=== PATIENT | female | born 1945 | race Caucasian/White ===

== ENCOUNTER 2017-08-05 16:39 | Observation (INO) ==
[2017-08-05] MEDS ORDERED: Ipratropium/Albuterol Neb 3 ML IH ONE ×2 (18:01→20:45)
--- NOTE | 2017-08-05 18:11 | Emergency Department Note ---
Disposition Clinical Impression: Acute respiratory failure with hypoxia, Liver cirrhosis secondary to nonalcoholic steatohepatitis (HENRIQUEZ), Thrombocytopenia Asthma with exacerbation Qualifiers: Asthma severity: unspecified severity Asthma persistence: unspecified Qualified Code(s): J45.901 - Unspecified asthma with (acute) exacerbation Ascites Qualifiers: Ascites type: other type Qualified Code(s): R18.8 - Other ascites Disposition: Admitted As Inpatient Condition: Good Time of Disposition: 20:45 SOB HPI - General Chief Complaint: ED Shortness of Breath/Dyspnea Stated Complaint: ALIE, congestion Time Seen by Provider: 08/05/17 17:48 Source: patient Limitations: no limitations Nursing Notes Reviewed: Yes Vital Signs Reviewed: Yes - History of Present Illness Mrs. Shaffer is a 72-year-old woman with a history of asthma, cirrhosis of the liver, hyperlipidemia who presented to the ED with shortness of breath and had a duration of approximately 3 months. She says the shortness of breath has been developing over the period of sleep on and has not seemed to get any better. In addition she has also developed a hoarseness to her voice which has progressed to a constant whisper. She says that throughout this time she has not had any fevers or chills. She has not had any indication of infection. She says that she was seen at the [place] ED and nothing was done at that time. She has not used an inhaler for breathing treatment in several years. She said nothing seems to help this shortness of breath and hoarseness, and nothing seems to make it significantly worse other than exertion. She believes that approximately one year ago she came into the hospital and had a thoracentesis at which time significant amount of fluid was released from her lungs. She denies any chest pain, edema. - Related Data Home Medications Medication Instructions Recorded Confirmed Furosemide [Lasix] 40 mg PO DAILY 06/15/15 06/15/15 Previous Rx's Medication Instructions Recorded Acetaminophen [Tylenol] 650 mg PO Q6HR PRN #0 tablet 06/18/15 Ascorbic Acid [Vitamin C] 500 mg PO BID tablet 06/18/15 Aspirin Enteric Coated [Aspirin EC] 81 mg PO DAILY #30 tablet. 06/18/15 Azithromycin [Zithromax] 250 mg PO DAILY #6 tablet 06/18/15 Benzonatate [Tessalon] 100 mg PO QID #120 capsule 06/18/15 Cholecalciferol (D-3) 5,000 unit PO BID 30 Days tablet 06/18/15 Docusate [Colace] 100 mg PO BID PRN #0 capsule 06/18/15 Glimepiride [Amaryl] 4 mg PO DAILY tablet 06/18/15 HYDROcodone BIT/Homatropine LQ 5 mg PO Q4HR PRN #120 ml 06/18/15 [Hycodan Syrup] Insulin DETEMIR [Levemir] 26 unit SQ BID 30 Days [id number] 06/18/15 Insulin LISPRO [HumaLOG] 8 units SQ TIDWM 30 Days vial 06/18/15 Ipratropium/Albuterol Neb [Duoneb] 3 ml IH [id number] #120 inhsol 06/18/15 Lactobacillus [Culturelle] 2 each PO DAILY 30 Days cap.sprink 06/18/15 Lisinopril [Zestril] 10 mg PO DAILY #0 tablet 06/18/15 Metformin [Glucophage] 1,000 mg PO BIDWM tablet 06/18/15 Spironolactone [Aldactone] 100 mg PO BID #60 tablet 06/18/15 Allergies Allergy/AdvReac Type Severity Reaction Status Date / Time No Known Drug Allergies Allergy See Verified 08/05/17 17:29 Comments Constitutional: Denies: fever, chills, weakness Eyes: Denies: vision change ENT ED: Reports: throat pain, other (hoarseness ) Cardiovascular: Reports: dyspnea on exertion. Denies: chest pain, palpitations , orthopnea, paroxysmal nocturnal dyspnea Respiratory: Denies: wheezes, hemoptysis, sputum production Gastrointestinal: Denies: nausea, vomiting, diarrhea Genitourinary: Denies: urgency, dysuria, frequency Musculoskeletal: Reports: neck pain. Denies: back pain Integumentary: Denies: rash, abrasion Neurological: Denies: headache Psychiatric: Denies: anxiety, depression Endocrine: Denies: heat or cold intolerance Hematological/Lymphatic: Denies: easy bleeding Allergic/Immunologic: Denies: facial swelling Past Medical History - Past Medical History Medical history: Reports: asthma, diabetes, hypertension, other Surgical history: Reports: hysterectomy, orthopedic, other Psychiatric history: Reports: no psych history [employer] history: Reports: non-contributory - Social History Smoking Status: Never smoker Smokeless Tobacco Status: No Alcohol use: Reports: none Drug use: Reports: none Physical Exam Gen.: Vitals noted. AAOx3 Ill appearing woman in moderate distress, speaks in broken whisper HEENT: PERRL/EOMI, oropharynx clear, Normocephalic, atraumatic Neck: Supple. No adenopathy. Cardiac: RRR but tachycardic, no murmur, +S1/S2 Pulmonary: b/l diffuse wheezes inspiratory and expiratory Abdomen: soft, nontender, BS noted, no guarding Back: Nontender throughout. MSK: ROM intact, no joint swelling noted Extremities: no BLE edema, nontender calf, no cyanosis or clubbing Neuro: A&Ox3, moves all extremities, no focal deficits Psych: Appropriate mood and behavior - General Limitations: no limitations General appearance: alert Course Vital Signs Temperature 98.9 F 08/05/17 17:29 Pulse Rate 95 08/05/17 17:29 Respiratory Rate 28 08/05/17 17:29 Blood Pressure 173/67 08/05/17 17:29 O2 Sat by Pulse Oximetry 94 08/05/17 17:29 Temperature 97.9 F 08/05/17 21:58 Pulse Rate 108 08/05/17 21:58 Respiratory Rate 22 08/05/17 21:58 Blood Pressure 142/57 08/05/17 21:58 O2 Sat by Pulse Oximetry 97 08/05/17 22:43 Oxygen Delivery Oxygen Delivery Nasal Cannula Shortness of Breath/Dyspnea - MDM Narrative Medical decision making narrative: I reviewed this patient's imaging and labs. On exam the patient is highly exasperated, moderate distress and unable to speak in full sentences without stopping for air. She was initially diffusely wheezy on end expiration, however after breathing treatment she did develop wheezing both inspiratory and expiratory. I think it is likely that this patient developed its pre-wheezes due to opening of airway with an increased airflow. The patient has been hypoxic in her time here when left on room air. He also develops acute dyspnea and tachycardia on minimal exertion. Chest x-ray and CT did not demonstrate any acute abnormalities, however did show severe cirrhosis with sequelae consistent with it. Additionally, the patient did have labs which demonstrated a leukopenia, thrombocytopenia. Additionally on initial evaluation the patient' s blood glucose was 600, ABG demonstrated acidosis. I gave the patient 10U insulin, IV saline, and then spoke with the hospitalist who recommended IV insulin drip. The patient's respiratory status did improve with 3 breathing treatments, however upon using the restroom her respiratory status declined again. She received one more breathing treatment while in the ED. Hospitalist agreed to accept this patient for workup of hypoxic respiratory failure along with acidosis. - Medical Records Medical records reviewed: Yes I reviewed the patient's medical records. - Lab Data Lab results reviewed: Yes I reviewed the patient's lab results. Result diagrams: 08/05/17 18:12 08/05/17 22:26 Lab Results 08/05/17 08/05/17 08/05/17 Range/Units 18:12 18:12 18:12 WBC 2.4 L (4.3-11.1) K/mcL RBC 3.20 L (3.82-4.97) M/mcL Hgb 10.1 L (11.5-15.4) g/dL Hct 30.6 L (35.3-44.9) % MCV 95.6 (83.0-100.0) fL MCH 31.6 (28.0-33.3) pg MCHC 33.0 (31.6-35.5) g/dL RDW 17.2 H (11.5-14.5) % Plt Count 26 L* (140-400) K/mcL MPV 11.5 (9.4-12.4) fL Immature Gran % 0.8 (0-4) % Seg Neutrophils % 84.5 % Lymphocytes % 8.8 % Monocytes % 5.9 % Eosinophils % 0.0 % Basophils % 0.0 % Neutrophils # 2.0 (1.6-8.9) K/mcL Lymphocytes # 0.2 L (0.6-4.6) K/mcL Monocytes # 0.1 (0.0-1.3) K/mcL Eosinophils # 0.0 (0.0-0.6) K/mcL Basophils # 0.0 (0.0-0.2) K/mcL Immature Plt Fraction 3.7 (1.1-6.1) % PT (9.4-12.1) Seconds INR ABG pH (7.32-7.45) pH Units ABG pCO2 (35-45) mmHg ABG pO2 (85-104) mmHg ABG HCO3 (21-27) mEq/L ABG Total CO2 (20-26) mEq/L ABG O2 Saturation (95-98) % ABG Base Excess (-2 to 3) mEq/L Sodium 132 L (136-145) mEq/L Potassium 5.0 (3.5-5.1) mEq/L Chloride 106 (98-107) mEq/L Carbon Dioxide 19 L (23-29) mEq/L BUN 28 H (8-23) mg/dL Creatinine 1.29 H (0.60-1.20) mg/dL Est GFR ( Amer) 50 L (> 60) Est GFR (Non-Af Amer) 41 L (> 60) BUN/Creatinine Ratio 22 (6-26) Glucose 600 H* (70-105) mg/dL Calculated Osmolality 307 H (280-300) Lactic Acid (0.5-2.2) mmol/L Calcium 8.4 L (8.6-10.3) mg/dL Total Bilirubin 1.0 (0.3-1.0) mg/dL Direct Bilirubin (0.0-0.2) mg/dL Indirect Bilirubin (0.0-1.2) mg/dL AST 26 (13-39) Units/L ALT 18 (7-52) Units/L Alkaline Phosphatase 67 (34-104) Units/L Troponin I < 0.03 (< 0.04) ng/mL B-Natriuretic Peptide (Less than 100) pg/mL Serum Total Protein 6.6 (6.4-8.9) g/dL Albumin 3.3 L (3.5-5.7) g/dL Globulin 3.3 (2.4-3.5) g/dL Albumin/Globulin Ratio 1.0 L (1.1-2.2) Beta-Hydroxybutyric Acd (0.02-0.27) mmol/L TSH (0.340-5.600) mcIU/mL Ur Specimen Adequacy Urine Color (Yellow) Urine Clarity (Clear) Urine pH (5.0-8.0) pH Units Ur Specific [place] (1.010-1.025) Urine Protein (Neg-Trace) mg/dL Urine Glucose (UA) (Normal) mg/dL Urine Ketones (Negative) mg/dL Urine Blood (Negative) Urine Nitrite (Negative) Urine Bilirubin (Negative) Urine Urobilinogen (Normal) mg/dL Ur Leukocyte Esterase (Negative) Urine Microscopic RBC (0-3) per hpf Urine Microscopic WBC (0-3) per hpf Ur Squamous Epith Cells (None-Few) per lpf Urine Bacteria (None-Few) per hpf Hyaline Casts (None-Few) per lpf Ur Culture Indicated? (NO) 08/05/17 08/05/17 08/05/17 Range/Units 18:12 18:12 18:12 WBC (4.3-11.1) K/mcL RBC (3.82-4.97) M/mcL Hgb (11.5-15.4) g/dL Hct (35.3-44.9) % MCV (83.0-100.0) fL MCH (28.0-33.3) pg MCHC (31.6-35.5) g/dL RDW (11.5-14.5) % Plt Count (140-400) K/mcL MPV (9.4-12.4) fL Immature Gran % (0-4) % Seg Neutrophils % % Lymphocytes % % Monocytes % % Eosinophils % % Basophils % % Neutrophils # (1.6-8.9) K/mcL Lymphocytes # (0.6-4.6) K/mcL Monocytes # (0.0-1.3) K/mcL Eosinophils # (0.0-0.6) K/mcL Basophils # (0.0-0.2) K/mcL Immature Plt Fraction (1.1-6.1) % PT (9.4-12.1) Seconds INR ABG pH (7.32-7.45) pH Units ABG pCO2 (35-45) mmHg ABG pO2 (85-104) mmHg ABG HCO3 (21-27) mEq/L ABG Total CO2 (20-26) mEq/L ABG O2 Saturation (95-98) % ABG Base Excess (-2 to 3) mEq/L Sodium (136-145) mEq/L Potassium (3.5-5.1) mEq/L Chloride (98-107) mEq/L Carbon Dioxide (23-29) mEq/L BUN (8-23) mg/dL Creatinine (0.60-1.20) mg/dL Est GFR ( Amer) (> 60) Est GFR (Non-Af Amer) (> 60) BUN/Creatinine Ratio (6-26) Glucose (70-105) mg/dL Calculated Osmolality (280-300) Lactic Acid (0.5-2.2) mmol/L Calcium (8.6-10.3) mg/dL Total Bilirubin 1.0 (0.3-1.0) mg/dL Direct Bilirubin 0.3 H (0.0-0.2) mg/dL Indirect Bilirubin 0.7 (0.0-1.2) mg/dL AST 26 (13-39) Units/L ALT 19 (7-52) Units/L Alkaline Phosphatase 66 (34-104) Units/L Troponin I (< 0.04) ng/mL B-Natriuretic Peptide 155 H (Less than 100) pg/mL Serum Total Protein 6.6 (6.4-8.9) g/dL Albumin 3.3 L (3.5-5.7) g/dL Globulin 3.3 (2.4-3.5) g/dL Albumin/Globulin Ratio 1.0 L (1.1-2.2) Beta-Hydroxybutyric Acd (0.02-0.27) mmol/L TSH 0.969 (0.340-5.600) mcIU/mL Ur Specimen Adequacy Urine Color (Yellow) Urine Clarity (Clear) Urine pH (5.0-8.0) pH Units Ur Specific [place] (1.010-1.025) Urine Protein (Neg-Trace) mg/dL Urine Glucose (UA) (Normal) mg/dL Urine Ketones (Negative) mg/dL Urine Blood (Negative) Urine Nitrite (Negative) Urine Bilirubin (Negative) Urine Urobilinogen (Normal) mg/dL Ur Leukocyte Esterase (Negative) Urine Microscopic RBC (0-3) per hpf Urine Microscopic WBC (0-3) per hpf Ur Squamous Epith Cells (None-Few) per lpf Urine Bacteria (None-Few) per hpf Hyaline Casts (None-Few) per lpf Ur Culture Indicated? (NO) 08/05/17 08/05/17 08/05/17 Range/Units 18:12 19:09 19:09 WBC (4.3-11.1) K/mcL RBC (3.82-4.97) M/mcL Hgb (11.5-15.4) g/dL Hct (35.3-44.9) % MCV (83.0-100.0) fL MCH (28.0-33.3) pg MCHC (31.6-35.5) g/dL RDW (11.5-14.5) % Plt Count (140-400) K/mcL MPV (9.4-12.4) fL Immature Gran % (0-4) % Seg Neutrophils % % Lymphocytes % % Monocytes % % Eosinophils % % Basophils % % Neutrophils # (1.6-8.9) K/mcL Lymphocytes # (0.6-4.6) K/mcL Monocytes # (0.0-1.3) K/mcL Eosinophils # (0.0-0.6) K/mcL Basophils # (0.0-0.2) K/mcL Immature Plt Fraction (1.1-6.1) % PT 15.2 H (9.4-12.1) Seconds INR 1.4 ABG pH (7.32-7.45) pH Units ABG pCO2 (35-45) mmHg ABG pO2 (85-104) mmHg ABG HCO3 (21-27) mEq/L ABG Total CO2 (20-26) mEq/L ABG O2 Saturation (95-98) % ABG Base Excess (-2 to 3) mEq/L Sodium (136-145) mEq/L Potassium (3.5-5.1) mEq/L Chloride (98-107) mEq/L Carbon Dioxide (23-29) mEq/L BUN (8-23) mg/dL Creatinine (0.60-1.20) mg/dL Est GFR ( Amer) (> 60) Est GFR (Non-Af Amer) (> 60) BUN/Creatinine Ratio (6-26) Glucose (70-105) mg/dL Calculated Osmolality (280-300) Lactic Acid 2.4 H (0.5-2.2) mmol/L Calcium (8.6-10.3) mg/dL Total Bilirubin (0.3-1.0) mg/dL Direct Bilirubin (0.0-0.2) mg/dL Indirect Bilirubin (0.0-1.2) mg/dL AST (13-39) Units/L ALT (7-52) Units/L Alkaline Phosphatase (34-104) Units/L Troponin I (< 0.04) ng/mL B-Natriuretic Peptide (Less than 100) pg/mL Serum Total Protein (6.4-8.9) g/dL Albumin (3.5-5.7) g/dL Globulin (2.4-3.5) g/dL Albumin/Globulin Ratio (1.1-2.2) Beta-Hydroxybutyric Acd 0.13 (0.02-0.27) mmol/L TSH (0.340-5.600) mcIU/mL Ur Specimen Adequacy Urine Color (Yellow) Urine Clarity (Clear) Urine pH (5.0-8.0) pH Units Ur Specific [place] (1.010-1.025) Urine Protein (Neg-Trace) mg/dL Urine Glucose (UA) (Normal) mg/dL Urine Ketones (Negative) mg/dL Urine Blood (Negative) Urine Nitrite (Negative) Urine Bilirubin (Negative) Urine Urobilinogen (Normal) mg/dL Ur Leukocyte Esterase (Negative) Urine Microscopic RBC (0-3) per hpf Urine Microscopic WBC (0-3) per hpf Ur Squamous Epith Cells (None-Few) per lpf Urine Bacteria (None-Few) per hpf Hyaline Casts (None-Few) per lpf Ur Culture Indicated? (NO) 08/05/17 08/05/17 Range/Units 19:28 19:56 WBC (4.3-11.1) K/mcL RBC (3.82-4.97) M/mcL Hgb (11.5-15.4) g/dL Hct (35.3-44.9) % MCV (83.0-100.0) fL MCH (28.0-33.3) pg MCHC (31.6-35.5) g/dL RDW (11.5-14.5) % Plt Count (140-400) K/mcL MPV (9.4-12.4) fL Immature Gran % (0-4) % Seg Neutrophils % % Lymphocytes % % Monocytes % % Eosinophils % % Basophils % % Neutrophils # (1.6-8.9) K/mcL Lymphocytes # (0.6-4.6) K/mcL Monocytes # (0.0-1.3) K/mcL Eosinophils # (0.0-0.6) K/mcL Basophils # (0.0-0.2) K/mcL Immature Plt Fraction (1.1-6.1) % PT (9.4-12.1) Seconds INR ABG pH 7.30 L (7.32-7.45) pH Units ABG pCO2 29 L (35-45) mmHg ABG pO2 81 L (85-104) mmHg ABG HCO3 15 L (21-27) mEq/L ABG Total CO2 15 L (20-26) mEq/L ABG O2 Saturation 95 (95-98) % ABG Base Excess -11 L (-2 to 3) mEq/L Sodium (136-145) mEq/L Potassium (3.5-5.1) mEq/L Chloride (98-107) mEq/L Carbon Dioxide (23-29) mEq/L BUN (8-23) mg/dL Creatinine (0.60-1.20) mg/dL Est GFR ( Amer) (> 60) Est GFR (Non-Af Amer) (> 60) BUN/Creatinine Ratio (6-26) Glucose (70-105) mg/dL Calculated Osmolality (280-300) Lactic Acid (0.5-2.2) mmol/L Calcium (8.6-10.3) mg/dL Total Bilirubin (0.3-1.0) mg/dL Direct Bilirubin (0.0-0.2) mg/dL Indirect Bilirubin (0.0-1.2) mg/dL AST (13-39) Units/L ALT (7-52) Units/L Alkaline Phosphatase (34-104) Units/L Troponin I (< 0.04) ng/mL B-Natriuretic Peptide (Less than 100) pg/mL Serum Total Protein (6.4-8.9) g/dL Albumin (3.5-5.7) g/dL Globulin (2.4-3.5) g/dL Albumin/Globulin Ratio (1.1-2.2) Beta-Hydroxybutyric Acd (0.02-0.27) mmol/L TSH (0.340-5.600) mcIU/mL Ur Specimen Adequacy See below A Urine Color Yellow (Yellow) Urine Clarity Clear (Clear) Urine pH 6.5 (5.0-8.0) pH Units Ur Specific [place] 1.028 H (1.010-1.025) Urine Protein Trace (Neg-Trace) mg/dL Urine Glucose (UA) >=1000 H (Normal) mg/dL Urine Ketones Negative (Negative) mg/dL Urine Blood Small H (Negative) Urine Nitrite Negative (Negative) Urine Bilirubin Negative (Negative) Urine Urobilinogen Normal (Normal) mg/dL Ur Leukocyte Esterase Negative (Negative) Urine Microscopic RBC 5-15 H (0-3) per hpf Urine Microscopic WBC 5-15 H (0-3) per hpf Ur Squamous Epith Cells Many H (None-Few) per lpf Urine Bacteria Moderate H (None-Few) per hpf Hyaline Casts None Seen (None-Few) per lpf Ur Culture Indicated? NO (NO) - Radiology Data Radiology results reviewed: Yes I reviewed the patient's radiology results. - EKG Data EKG attestation: Yes I reviewed and interpreted this EKG. EKG results narrative: EKG demonstrates sinus rhythm with ventricular rate of 98 PA interval 163 QRS duration 93 QTC 407 with no evidence of acute ischemia Critical Care Time Critical Care Time: Yes Total Critical Care Time: 35 Attestation: Critical care time 35 minutes managing patient's respiratory failure. Attestation Statement - Attestation Attestation: Patient was seen with resident physician. I reviewed the history, physical, assessment and plan, and agree with the findings. I also personally evaluated this patient and had [id number] time with this patient. 72-year-old female presents to the emergency department with chief complaint of redness of breath. Patient states that she has been short of breath since May. She says nothing is really helped her gotten better. She also notes a worsening in her ability to talk. She said her throat is gotten more raspy and almost laryngitic. She denies fevers or chills. No chest pain. This is worse the last couple days which prompted her visit. On exam vital signs are stable except for hypertension. ENT is unremarkable. Heart regular rate. Lungs demonstrate decreased air movement with some wheezing diffusely. Abdomen is obese nontender. Extremities unremarkable. Neurologically intact. ED course we will do a full workup for pulmonary problems. She has a history of pulmonary effusion which is required thoracentesis. Also there was some concern with his raspy voice for such a long period of time that there may be an issue in the neck. We will get a CT scan of the neck and the chest with IV contrast to rule out significant abnormalities in either those locations. Patient is not on home O2 on her initial pulse ox was relatively low sore disposition is going to depend on whether or not we can improve oxygenation on room air. She will be given aggressive breathing treatments she is also given steroids. CT scans of the chest and neck did not reveal acute abnormalities that would be causative of her shortness of breath. She did not respond sufficiently enough with bronchodilators to warrant disposition to home. Additionally she had a number of blood test abnormalities including thrombocytopenia that were concerning. We opted to admit the patient to the hospital service for further evaluation and treatment and additional diagnostic testing is indicated. Hospitalist agreed to accept patient. I agree with the resident physician assessment and plan.
[2017-08-05 18:28] LABS: Hemoglobin 10.1 g/dL (11.5-15.4); Red Cell Distribution Width 17.2 % (11.5-14.5)
[2017-08-05 18:30] LABS: Hematocrit 30.6 % (35.3-44.9); Immature Granulocytes % 0.8 % (0-4); Immature Platelets 3.7 % (1.1-6.1); Lymphocytes # 0.2 K/mcL (0.6-4.6); Lymphocytes % 8.8 %; Mean Corpuscular Hemoglobin 31.6 pg (28.0-33.3); Mean Corpuscular Volume 95.6 fL (83.0-100.0); Mean Platelet Volume 11.5 fL (9.4-12.4); Monocytes # 0.1 K/mcL (0.0-1.3); Monocytes % 5.9 %; Segmented Neutrophils % 84.5 %
[2017-08-05 18:47] LABS: Albumin 3.3 g/dL (3.5-5.7); Bilirubin,Direct 0.3 mg/dL (0.0-0.2); Bilirubin,Indirect 0.7 mg/dL (0.0-1.2); Globulin 3.3 g/dL (2.4-3.5); Total Protein 6.6 g/dL (6.4-8.9)
[2017-08-05] MEDS ORDERED: methylPREDNISolone 125 MG/2 ML VIAL IVP ONE (18:49)
[2017-08-05 18:52] LABS: Albumin 3.3 g/dL (3.5-5.7); Calcium 8.4 mg/dL (8.6-10.3); Globulin 3.3 g/dL (2.4-3.5); Total Protein 6.6 g/dL (6.4-8.9)
[2017-08-05 18:53] LABS: Platelet Count 26 K/mcL (140-400)
[2017-08-05] MEDS ORDERED: Insulin Regular, Human 100 UNIT/ML IV ONE (19:11)
[2017-08-05 19:25] LABS: INR 1.4; Prothrombin Time 15.2 Seconds (9.4-12.1)
[2017-08-05 19:47] LABS: Bilirubin,Urine Negative (Negative); Blood,Urine Small (Negative); Clarity,Urine Clear (Clear); Color,Urine Yellow (Yellow); Glucose,Urine (UA) >=1000 mg/dL (Normal); Ketones,Urine Negative (Negative); Leukocyte Esterase,Urine Negative (Negative); Nitrite,Urine Negative (Negative); PH,Urine 6.5 pH Units (5.0-8.0); Protein,Urine Trace mg/dL (Neg-Trace); Specific Gravity,Urine 1.028 (1.010-1.025); Urobilinogen,Urine Normal (Normal)
[2017-08-05 19:50] LABS: Bacteria,Urine Moderate per hpf (None-Few); Hyaline Casts,Urine None Seen per lpf (None-Few); Squamous Epithelial Cell,Urine Many per lpf (None-Few)
[2017-08-05 19:59] LABS: ABG Base Excess -11 mEq/L (-2 to 3); ABG HCO3 15 mEq/L (21-27); ABG Oxygen Saturation 95 % (95-98); ABG PCO2 29 mmHg (35-45); ABG PO2 81 mmHg (85-104); ABG TCO2 15 mEq/L (20-26)
[2017-08-05] MEDS ORDERED: 0.9 % Sodium Chloride 1,000 ML IVC SCH (20:15)
[2017-08-05] MEDS ORDERED: Insulin Human Regular 100 UNIT in 0.9 % Sodium Chloride 100 ML IVC SCH (20:15)
[2017-08-05] MEDS ORDERED: MOM Conc 10 ML UD.LIQ PO PRN (21:27)
[2017-08-05] MEDS ORDERED: Ondansetron 4 MG/2 ML VIAL IVP PRN (21:27)
[2017-08-05] MEDS ORDERED: Acetaminophen 325 MG TABLET PO PRN (21:27)
[2017-08-05] MEDS ORDERED: Naloxone 0.4 MG/ML INJ IVP PRN (21:27)
--- NOTE | 2017-08-05 21:41 | Internal Med History&Physical ---
Date of Encounter: 08/05/17 Time of Encounter: 21:36 Assessment and Plan (1) Hyperglycemia Current visit: Yes Status: Acute - Hx of DM and not take insulin today. - hyperglycemia without ketosis. - insulin gtt and accu chek q1h. IVF. - will resume home insulin once BS under control. (2) Hoarseness of voice Current visit: Yes Status: Acute - Hoarseness ongoing for 2-3 months. never had ENT evaluation. She also c/o frequent aspiration - laryngeal seems congested without exudate. Infection with bacterial or viral seem unlikely due to chronicity. - CT neck soft tissue results unremarkable. - Swallow evaluation by PT. - ENT consult. - PPI for possible GERD (3) Metabolic acidosis Current visit: Yes Status: Acute - Non-AG metabolic acidosis, AG 12 ( corrected Na 137 due to high BS) - No GI loss caused metabolic acidosis, likely due to diuretics side-effect ( Aldactone). - likely overdiuresed given ANTONIO and high urine density. - will gently give IVF and repeat BMP. (4) Acute kidney injury Current visit: No Status: Acute - likely pre-renal. IVF and recheck BMP. (5) Liver cirrhosis secondary to nonalcoholic steatohepatitis (HENRIQUEZ) Current visit: No Status: Chronic - Unclear etiology, does has family hx of cirrhosis and DM, will r/o hemochromotosis. - well compensated, no signs of bleeding or infection. (6) Hypersplenism syndrome Current visit: No Status: Chronic - part of cirrhosis syndrome. (7) Ascites Current visit: No Status: Chronic - No signs of infection. Qualifiers: Ascites type: other type Qualified Code(s): R18.8 - Other ascites (8) Diabetes mellitus type 2 in obese Current visit: No Status: Chronic - on insulin gtt. will resume home meds once BS under control. (9) Active asthma Current visit: No Status: Chronic - stable, no respiratory distress. Internal Medicine - H&P: HPI Admitted From: Emergency Dept Plans for Post Hospital Care: Home History of present illness: Ms. Shaffer is a 72 year old female with past medical history significant for asthma, cirrhosis, diabetes, hypertension who presented to the ED with hoarseness and progressive shortness of breath for 2 months. She says the shortness of breath has been developing over the period of sleep on and has not seemed to get any better. In addition she has also developed a hoarseness to her voice which has progressed to a constant whisper. She also reported frequent aspiration with solid food. She says that throughout this time she has not had any fevers or chills. She has not had any indication of infection. She says that she was seen at the [facility] ED and nothing was done at that time. She has not used an inhaler for breathing treatment in several years. She said nothing seems to help this shortness of breath and hoarseness, and nothing seems to make it significantly worse other than exertion. She believes that approximately one year ago she came into the hospital and had a thoracentesis at which time significant amount of fluid was released from her lungs. Today she reported she did not take insulin. ED labs revealed high blood sugar. She will be admitted to the inpatient service to manage multiple complaints. Past Med Surg Social Fam HX - Past Medical History Medical history: asthma, diabetes, hypertension, other Psychiatric history: no psych history - Past Surgical History Surgical History: hysterectomy, orthopedic, other - Social History Smoking Status: Never smoker Smokeless Tobacco Status: No Alcohol use: none Drug use: none - Family History Mother Living Status: Hx Family Neuromuscular Disorders: Yes (Stroke) Father Adopted: No Family Member Ethnicity: Non- Living Status: Hx Family Cardiac Disorders: Yes (heart disease) Hx Family Respiratory Disorders: No Hx Family Cancer: No Hx Family GI Disorders: No Hx Family Endocrine Disorder: No Hx Family Neuromuscular Disorders: No Hx Family Neurologic Disorders: No Hx Family HEENT Disorders: No Hx Family Autoimmune Disorders: No Internal Medicine - H&P: Meds Furosemide [Lasix] 40 mg PO DAILY 06/15/15 [History] Acetaminophen [Tylenol] 650 mg PO Q6HR PRN #0 tablet 06/18/15 [Rx] Ascorbic Acid [Vitamin C] 500 mg PO BID tablet 06/18/15 [Rx] Aspirin Enteric Coated [Aspirin EC] 81 mg PO DAILY #30 tablet. 06/18/15 [Rx] Azithromycin [Zithromax] 250 mg PO DAILY #6 tablet 06/18/15 [Rx] Benzonatate [Tessalon] 100 mg PO QID #120 capsule 06/18/15 [Rx] Cholecalciferol (D-3) 5,000 unit PO BID 30 Days tablet 06/18/15 [Rx] Docusate [Colace] 100 mg PO BID PRN #0 capsule 06/18/15 [Rx] Glimepiride [Amaryl] 4 mg PO DAILY tablet 06/18/15 [Rx] HYDROcodone BIT/Homatropine LQ [Hycodan Syrup] 5 mg PO Q4HR PRN #120 ml [Rx] Insulin DETEMIR [Levemir] 26 unit SQ BID 30 Days [id number] 06/18/15 [Rx] Insulin LISPRO [HumaLOG] 8 units SQ TIDWM 30 Days vial 06/18/15 [Rx] Ipratropium/Albuterol Neb [Duoneb] 3 ml IH [id number] #120 inhsol 06/18/15 [Rx] Lactobacillus [Culturelle] 2 each PO DAILY 30 Days cap.sprink 06/18/15 [Rx] Lisinopril [Zestril] 10 mg PO DAILY #0 tablet 06/18/15 [Rx] Metformin [Glucophage] 1,000 mg PO BIDWM tablet 06/18/15 [Rx] Spironolactone [Aldactone] 100 mg PO BID #60 tablet 06/18/15 [Rx] 3 Allergy/AdvReac Type Severity Reaction Status Date / Time No Known Drug Allergies Allergy See Verified 08/05/17 17:29 Comments All Systems PM: A 10-system review of systems was performed and is negative for pertinent findings except as documented above in the HPI. Review of systems: REVIEW OF SYSTEMS: CONSTITUTIONAL: No weight loss, fever, chills, weakness or fatigue. HEENT: Eyes: No visual loss, blurred vision, double vision or yellow sclerae. Ears, Nose, Throat: No hearing loss, sneezing, congestion, runny nose or sore throat. SKIN: No rash or itching. CARDIOVASCULAR: No chest pain, chest pressure or chest discomfort. No palpitations or edema. RESPIRATORY: No cough or sputum. GASTROINTESTINAL: No anorexia, nausea, vomiting or diarrhea. No abdominal pain or blood. GENITOURINARY: No dysuria, urgency, or frequency. NEUROLOGICAL: No headache, dizziness, syncope, paralysis, ataxia, numbness or tingling in the extremities. No change in bowel or bladder control. MUSCULOSKELETAL: No muscle, back pain, joint pain or stiffness. HEMATOLOGIC: No anemia, bleeding or bruising. LYMPHATICS: No enlarged nodes. No history of splenectomy. PSYCHIATRIC: No history of depression or anxiety. ENDOCRINOLOGIC: No reports of sweating, cold or heat intolerance. - Constitutional Vitals: Temp Pulse Resp BP Pulse Ox 98.9 F 109 18 168/79 95 08/05/17 17:29 08/05/17 20:38 08/05/17 21:11 08/05/17 20:38 08/05/17 21:11 Exam: PHYSICAL EXAMINATION: GENERAL APPEARANCE: The patient is alert, oriented and in no acute distress. HEENT: throat slightly red with mild tissue swelling without exudate. NECK: Supple without lymphadenopathy. HEART: Regular rate and rhythm. LUNGS: No crackles or wheezes are heard. ABDOMEN: Soft, nontender, nondistended with good bowel sounds heard. Inguinal area is normal. EXTREMITIES: Without cyanosis, clubbing or edema. NEUROLOGICAL: Gross nonfocal. SKIN: Warm and dry without any rash. Internal Med - H&P Results - Labs CBC & Chem 7: 08/05/17 18:12 08/05/17 18:12
[2017-08-05 22:55] LABS: Calcium 8.3 mg/dL (8.6-10.3); Potassium 3.7 mEq/L (3.5-5.1)
[2017-08-05] MEDS: Ipratropium/Albuterol Neb 3 ML IH SCH (23:12)
[2017-08-05] MEDS ORDERED: D5% in 0.45% NACL 1,000 ML IVC PRN (23:42)
[2017-08-05] MEDS ORDERED: Insulin Regular, Human 100 UNIT/ML IV PRN (23:42)
[2017-08-05] MEDS ORDERED: 0.45 % Sodium Chloride w/KCl 20 MEQ/1,000 ML MLS IVC PRN (23:45)
[2017-08-05] MEDS ORDERED: 0.9 % Sodium Chloride w KCl 20 MEQ/1,000 ML MLS IVC SCH (23:45)
[2017-08-05] MEDS ORDERED: 0.9 % Sodium Chloride w KCl 20 MEQ/1,000 ML MLS IVC ONE (23:52)
[2017-08-05] MEDS: Pantoprazole 40 MG VIAL IVP SCH (23:56)
[2017-08-06] MEDS: HYDROcodone BIT/Homatropine LQ 5 MG/5 ML UDC PO PRN ×2 (01:43→05:50)
[2017-08-06] MEDS: Benzonatate 100 MG CAPSULE PO PRN (01:44)
[2017-08-06] MEDS: D5% in 0.45% NACL w KCl 20 MEQ/1,000 ML MLS IVC PRN ×2 (02:05→07:05)
[2017-08-06] MEDS: Ipratropium/Albuterol Neb 3 ML IH SCH ×5 (03:52→21:20)
[2017-08-06] MEDS: *HR* Dextrose 50 % in Water (Syg) 50 ML SYRINGE IVP PRN ×2 (05:35→07:28)
[2017-08-06] MEDS: Pantoprazole 40 MG VIAL IVP SCH (05:48)
[2017-08-06 06:26] LABS: Hemoglobin 9.1 g/dL (11.5-15.4); Red Cell Distribution Width 17.2 % (11.5-14.5)
[2017-08-06 06:28] LABS: Hematocrit 27.3 % (35.3-44.9); Immature Platelets 3.2 % (1.1-6.1); Mean Corpuscular HGB Conc 33.3 g/dL (31.6-35.5); Mean Corpuscular Hemoglobin 31.6 pg (28.0-33.3); Mean Corpuscular Volume 94.8 fL (83.0-100.0); Mean Platelet Volume 11.4 fL (9.4-12.4); Red Blood Count 2.88 M/mcL (3.82-4.97)
[2017-08-06 06:31] LABS: Hemoglobin A1C 6.6 %
[2017-08-06 06:39] LABS: Potassium 4.1 mEq/L (3.5-5.1)
--- NOTE | 2017-08-06 07:03 | Pulmonology Consult Note ---
Date of Encounter: 08/06/17 Time of Encounter: 07:03 Assessment and Plan (1) Acute respiratory failure with hypoxia Current Visit: Yes Status: Acute Her oxygen saturation is within normal limits on room air today she will need walking pulse oximetry prior to discharge. (2) Asthma with exacerbation Current Visit: Yes Status: Acute Agree with by mouth prednisone 40 mg 5 days hyperglycemia has been noted this is being managed by the medicine service if this is uncontrolled while on steroids then option of giving treatment via ICS is completely reasonable Please send respiratory infectious panel and if patient make any sputum send for sputum culture Start Symbicort 160/4.52 puffs twice a day Patient should have a home nebulizer machine if not already arranged DuoNeb should be scheduled every 4 hours with option of short acting beta agonist a metered-dose inhaler form or nebulizer solution Give azithromycin (500mg day 1 250mg thereafter 5 days Outpatient pulmonary follow-up for full PFTs and further evaluation Qualifiers: Asthma severity: unspecified severity Asthma persistence: unspecified Qualified Code(s): J45.901 - Unspecified asthma with (acute) exacerbation (3) Pulmonary hypertension Current Visit: Yes Status: Acute She has a dilated pulmonary artery seen on imaging this is a nonspecific finding but may indicate underlying pulmonary hypertension she is at risk for WHO group 3 disease because of untreated obstructive sleep apnea and possible chronic nocturnal hypoxemia additionally she is at risk for group 1 disease because of underlying liver cirrhosis and the possibility of portal pulmonary hypertension she will need outpatient echocardiogram with bubble study ordered for further screening of this condition (4) Liver cirrhosis secondary to nonalcoholic steatohepatitis (HENRIQUEZ) Current Visit: No Status: Chronic This is being managed by the primary medicine service (5) Hoarseness of voice Current Visit: Yes Status: Acute I suspect a component of vocal cord dysfunction or possible gastroesophageal reflux. Agree with empiric treatment with PPI she will need ENT evaluation for consultation (6) WAGNER (obstructive sleep apnea) Current Visit: Yes Status: Acute What started empiric CPAP while inpatient she will need outpatient follow-up for polysomnogram. CPAP can also be helpful for work of breathing (7) Obesity Current Visit: Yes Status: Acute Weight loss encouraged Thank you for this consultation pulmonary we will sign off call if there needs to be any clarification of recommendations but it looks like most of this will be outpatient evaluation after acute treatment with steroids and bronchodilators along with a short course of antimicrobials are instituted Qualifiers: Qualified Code(s): E66.9 - Obesity, unspecified History of Present Illness Consult date: 08/06/17 Requesting physician: Idalmis Vivar Reason for consult: asthma Chief complaint: Difficulty In Breathing History of present illness: This is a pleasant 72-year-old woman with a past medical history of asthma not currently on treatment, liver cirrhosis hyperlipidemia. who presented with worsening shortness of breath and dry cough since . She also has had a hoarse voice since approximately May so that now she is barely able to whisper but again much worse since the holidays. She denies fevers chills weight loss or hemoptysis. 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 No environmental/ industrial exposures no recent travel denies any sick contacts no family history of lung disease Of note she is obese and has been diagnosed with obstructive sleep apnea in the past and was on CPAP treatment for some time but said that "it stopped" and she is not sure why she did notice some benefit while she was wearing this mask Upon admission was noted to have significant hyperglycemia requiring IV infusion of insulin and some baseline lab abnormalities including pancytopenia chronic kidney injury. And did have some mild hypoxemia however has been noted to be saturating adequately on room air today during examination. CT neck was performed without acute abnormality. CT of the thorax was also performed with the report read as no acute process in the chest. Although this was limited by respiratory motion artifact. CT of the chest was also notable for the stigmata of portal hypertension including ascites splenomegaly and paraesophageal varices. Past Med Surg Social Fam HX - Past Medical History Medical history: asthma, diabetes, hypertension, other Psychiatric history: no psych history - Past Surgical History Surgical History: hysterectomy, orthopedic, other - Social History Smoking Status: Never smoker Smokeless Tobacco Status: No Alcohol use: none Drug use: none - Family History Mother Living Status: Hx Family Neuromuscular Disorders: Yes (Stroke) Father Adopted: [place]: RAMAN Family Member Ethnicity: Non- Living Status: Age at : 55 Cause of : CA Hx Family Cardiac Disorders: Yes Hx Family Respiratory Disorders: No Hx Family Cancer: Yes Hx Family GI Disorders: No Hx Family Genitourinary Disorders: No Hx Family Endocrine Disorder: Yes Hx Family Musculoskeletal Disorders: No Hx Family Neuromuscular Disorders: No Hx Family Neurologic Disorders: No Hx Family HEENT Disorders: No Hx Family Autoimmune Disorders: No Hx Family Reproductive Disorders: Yes Hx Family Psychosocial Disorders: No Hx Family Medical Disorders: Yes Medications and Allergies Furosemide [Lasix] 40 mg PO DAILY 06/15/15 [History] Acetaminophen [Tylenol] 650 mg PO Q6HR PRN #0 tablet 06/18/15 [Rx] Ascorbic Acid [Vitamin C] 500 mg PO BID tablet 06/18/15 [Rx] Aspirin Enteric Coated [Aspirin EC] 81 mg PO DAILY #30 tablet. 06/18/15 [Rx] Azithromycin [Zithromax] 250 mg PO DAILY #6 tablet 06/18/15 [Rx] Benzonatate [Tessalon] 100 mg PO QID #120 capsule 06/18/15 [Rx] Cholecalciferol (D-3) 5,000 unit PO BID 30 Days tablet 06/18/15 [Rx] Docusate [Colace] 100 mg PO BID PRN #0 capsule 06/18/15 [Rx] Glimepiride [Amaryl] 4 mg PO DAILY tablet 06/18/15 [Rx] HYDROcodone BIT/Homatropine LQ [Hycodan Syrup] 5 mg PO Q4HR PRN #120 ml [Rx] Insulin DETEMIR [Levemir] 26 unit SQ BID 30 Days [id number] 06/18/15 [Rx] Insulin LISPRO [HumaLOG] 8 units SQ TIDWM 30 Days vial 06/18/15 [Rx] Ipratropium/Albuterol Neb [Duoneb] 3 ml IH [id number] #120 inhsol 06/18/15 [Rx] Lactobacillus [Culturelle] 2 each PO DAILY 30 Days cap.sprink 06/18/15 [Rx] Lisinopril [Zestril] 10 mg PO DAILY #0 tablet 06/18/15 [Rx] Metformin [Glucophage] 1,000 mg PO BIDWM tablet 06/18/15 [Rx] Spironolactone [Aldactone] 100 mg PO BID #60 tablet 06/18/15 [Rx] 3 Allergy/AdvReac Type Severity Reaction Status Date / Time No Known Drug Allergies Allergy See Verified 08/05/17 17:29 Comments All Systems: A 10-system review of systems was performed and is negative for pertinent findings except as documented above in the HPI. Physical Examination Vital Signs: Vital Signs, Last 4 Hours Temp Pulse Resp BP Pulse Ox 08/06/17 03:52 18 99 08/06/17 03:19 98.5 F 103 28 159/77 93 General appearance: no acute distress, other (She does become uncomfortable during noted coughing paroxysmal symptoms) Eyes: nonicteric ENT: oropharynx dry Mallampati (class): 4 Neck: supple, other (No stridor appreciated) Effort: mildly labored Auscultation: bilateral: wheezes (Expiratory wheeze in lung bases) Cardiovascular: regular rate and rhythm Gastrointestinal: normoactive bowel sounds, soft, non-tender Musculoskeletal: no deformities normal mental status, non-focal exam mood appropriate Results - Laboratory Findings CBC and BMP: 08/06/17 06:11 08/06/17 06:11 ABG ABG pH 7.30 pH Units (7.32-7.45) L 08/05/17 19:56 ABG pCO2 29 mmHg (35-45) L 08/05/17 19:56 ABG pO2 81 mmHg (85-104) L 08/05/17 19:56 ABG O2 Saturation 95 % (95-98) 08/05/17 19:56 PT/INR, D-dimer PT 15.2 Seconds (9.4-12.1) H 08/05/17 19:09 Abnormal lab findings: Abnormal lab results WBC 4.1 K/mcL (4.3-11.1) L D 08/06/17 06:11 RBC 2.88 M/mcL (3.82-4.97) L 08/06/17 06:11 Hgb 9.1 g/dL (11.5-15.4) L 08/06/17 06:11 Hct 27.3 % (35.3-44.9) L 08/06/17 06:11 RDW 17.2 % (11.5-14.5) H 08/06/17 06:11 Plt Count 28 K/mcL (140-400) L* 08/06/17 06:11 Lymphocytes # 0.2 K/mcL (0.6-4.6) L 08/05/17 18:12 PT 15.2 Seconds (9.4-12.1) H 08/05/17 19:09 ABG pH 7.30 pH Units (7.32-7.45) L 08/05/17 19:56 ABG pCO2 29 mmHg (35-45) L 08/05/17 19:56 ABG pO2 81 mmHg (85-104) L 08/05/17 19:56 ABG HCO3 15 mEq/L (21-27) L 08/05/17 19:56 ABG Total CO2 15 mEq/L (20-26) L 08/05/17 19:56 ABG Base Excess -11 mEq/L (-2 to 3) L 08/05/17 19:56 Chloride 113 mEq/L (98-107) H 08/06/17 06:11 Carbon Dioxide 21 mEq/L (23-29) L 08/06/17 06:11 BUN 26 mg/dL (8-23) H 08/06/17 06:11 Est GFR ( Amer) 54 (> 60) L 08/06/17 06:11 Est GFR (Non-Af Amer) 45 (> 60) L 08/06/17 06:11 Glucose 106 mg/dL (70-105) H 08/06/17 06:11 POC Glucose 202 (58-89) H 08/06/17 01:10 Hemoglobin A1c 6.6 % (-5.6) H 08/06/17 06:11 Calcium 8.0 mg/dL (8.6-10.3) L 08/06/17 06:11 Iron 32 mcg/dL (50-170) L 08/06/17 06:11 Direct Bilirubin 0.3 mg/dL (0.0-0.2) H 08/05/17 18:12 B-Natriuretic Peptide 155 pg/mL (Less than 100) H 08/05/17 18:12 Albumin 3.3 g/dL (3.5-5.7) L 08/05/17 18:12 Albumin/Globulin Ratio 1.0 (1.1-2.2) L 08/05/17 18:12 Ur Specimen Adequacy See below A 08/05/17 19:28 Ur Specific [place] 1.028 (1.010-1.025) H 08/05/17 19:28 Urine Glucose (UA) >=1000 mg/dL (Normal) H 08/05/17 19:28 Urine Blood Small (Negative) H 08/05/17 19:28 Urine Microscopic RBC 5-15 per hpf (0-3) H 08/05/17 19:28 Urine Microscopic WBC 5-15 per hpf (0-3) H 08/05/17 19:28 Ur Squamous Epith Cells Many per lpf (None-Few) H 08/05/17 19:28 Urine Bacteria Moderate per hpf (None-Few) H 08/05/17 19:28 - Diagnostic Findings Chest x-ray: report reviewed, image reviewed CT scan - chest: report reviewed, image reviewed - Clinical Findings Intake & Output: Intake & Output 08/05/17 08/05/17 08/06/17 15:59 23:59 07:59 Intake Total 17.6 / 17.6 1424.05 / 1424.05 Balance 17.6 / 17.6 1424.05 / 1424.05 Weight 92.7 kg 92.7 kg Consult Discharge Plan - Plan Referrals: Juan Miguel Decker [Primary Care Provider] -
[2017-08-06] MEDS: Cholecalciferol (D-3) 1,000 UNIT TABLET PO SCH ×2 (08:51→20:27)
[2017-08-06] MEDS: Aspirin Enteric Coated 81 MG Tablet PO SCH (08:51)
[2017-08-06] MEDS: predniSONE 20 MG TABLET PO SCH (08:51)
[2017-08-06] MEDS: Lactobacillus 1 EACH CAP.SPRINK PO SCH (08:51)
[2017-08-06] MEDS ORDERED: Furosemide 40 MG TABLET PO SCH (09:00)
[2017-08-06] MEDS ORDERED: D5% in Water 1,000 ML IVC PRN ×2 (09:23→09:26)
[2017-08-06] MEDS ORDERED: Dextrose Gel 15 GM/37.5 ML TUBE PO PRN ×2 (09:26)
[2017-08-06] MEDS ORDERED: *HR* Dextrose 50 % in Water (Syg) 50 ML SYRINGE IVP PRN (09:26)
[2017-08-06] MEDS: D5% in 0.45% NACL 1,000 ML IVC SCH ×2 (09:32→20:26)
[2017-08-06] MEDS: Insulin LISPRO 300 UNITS/3 ML VIAL SQ SCH ×2 (12:43→18:08)
--- NOTE | 2017-08-06 13:40 | Internal Med Progress Note ---
Date of Encounter: 08/06/17 Time of Encounter: 09:10 - Assessment and plan (1) Acute respiratory failure with hypoxia Current Visit: Yes Status: Acute Assessment and plan: Acute hypoxic respiratory failure secondary to acute exacerbation of asthma Continue DuoNeb breathing treatment, Prednisone, Azithromycin, Symbicort, O2 via NC Respiratory infectious panel - negative Chest x-ray - stable on no acute process Soft tissue neck CT - no acute abnormality CT chest - no acute process, enlarged main pulmonary artery, cholelithiasis, cirrhosis with ascites Troponin < 0.03 BNP - 155 EKG - sinus rhythm with no acute ST-T changes Sputum culture - pending Cardiac telemetry, pulse ox, labs in a.m., monitor closely, guarded condition (2) Liver cirrhosis secondary to nonalcoholic steatohepatitis (HENRIQUEZ) Current Visit: Yes Status: Chronic Assessment and plan: Chronic history of nonalcoholic steatohepatitis - with moderate amount of ascites Associated with chronic thrombocytopenia and hypersplenism syndrome Patient's pain need therapeutic paracentesis if ascites is worse (3) Diabetes mellitus type 2 in obese Current Visit: Yes Status: Chronic Assessment and plan: Type 2 diabetes mellitus, insulin-dependent, hyperglycemia Continue medium dose insulin sliding scale, Levemir, glucose checks HbA1c - 6.6 Patient was initially started on IV insulin for hyperglycemia which has now been discontinued (4) Hoarseness of voice Current Visit: Yes Status: Acute Assessment and plan: Probable cord dysfunction or GERD Continue Protonix 40 mg IV ENT consult pending (5) Thrombocytopenia Current Visit: Yes Status: Chronic Assessment and plan: Chronic severe thrombocytopenia - no active bleeding Likely secondary to cirrhosis (6) WAGNER (obstructive sleep apnea) Current Visit: Yes Status: Chronic Assessment and plan: Continue CPAP at night Sleep study as outpatient (7) DVT prophylaxis Current Visit: Yes Status: Acute Assessment and plan: SCDs, avoid anticoagulants due to thrombocytopenia - Time Spent With Patient 25 - 35 minutes - Subjective Interval history: Examined this morning. Patient is awake and alert. Patient is in discomfort due to mild shortness of breath and cough. Denies chest pain. No fever. Hemodynamically stable. Complains of mild generalized weakness and pain and hoarseness of voice. No other acute events or complaints. Admitted for hyperglycemia, hoarseness of voice, nonalcoholic steatohepatitis, ascites and acute respiratory failure with hypoxia. Pulmonology has evaluated the patient. - Constitutional Vitals: Temp Pulse Resp BP Pulse Ox 98.6 F 86 18 130/65 95 08/06/17 11:03 08/06/17 11:03 08/06/17 11:28 08/06/17 11:03 08/06/17 11:28 General appearance: Present: cooperative, mild distress, A&O X 3, pleasant, obese, answers questions appropriately Exam: Discomfort due to cough and shortness of breath - Head Head exam: Present: atraumatic - Eye Eye exam: Present: EOMI - ENT ENT exam: Present: mucous membranes dry - Respiratory Respiratory exam: Present: wheezes (Bilateral). Absent: accessory muscle use, chest wall tenderness, rales, respiratory distress, rhonchi, tachypnea - Cardiovascular Cardiovascular exam: Present: RRR, +S1, +S2 - GI/Abdominal GI/Abdominal exam: Present: distended (Ascites present), soft, no peritoneal signs. Absent: firm, guarding, tenderness - Extremities Exam Extremities exam: Present: radial pulses palpable and symmetrical. Absent: calf tenderness, cyanotic - Neurological Exam Neurological exam: Present: alert, oriented X3, no focal deficits. Absent: facial droop, speech deficit Internal Medicine: Result - Labs CBC & Chem 7: 08/06/17 06:11 08/06/17 06:11 - ABG Interpretation ABG results: ABG ABG pH 7.30 pH Units (7.32-7.45) L 08/05/17 19:56 ABG pCO2 29 mmHg (35-45) L 08/05/17 19:56 ABG pO2 81 mmHg (85-104) L 08/05/17 19:56 ABG O2 Saturation 95 % (95-98) 08/05/17 19:56 PT/INR, D-dimer PT 15.2 Seconds (9.4-12.1) H 08/05/17 19:09 Consult Discharge Plan - Plan Referrals: Juan Miguel Decker [Primary Care Provider] -
[2017-08-06 13:50] LABS: Adenovirus Not Detected (Not Detect); Bordetella Pertussis Not Detected (Not Detect); Chlamydophila pneumoniae Not Detected (Not Detect); Coronavirus 229E Not Detected (Not Detect); Coronavirus HKU1 Not Detected (Not Detect); Coronavirus NL63 Not Detected (Not Detect); Coronavirus OC43 Not Detected (Not Detect); Human Metapneumovirus Not Detected (Not Detect); Human Rhinovirus/Enterovirus Not Detected (Not Detect); Influenza A Subtype 2009 H1 Not Detected (Not Detect); Influenza A Untypeable Not Detected (Not Detect); Influenza B Not Detected (Not Detect); Mycoplasma pneumoniae Not Detected (Not Detect); Parainfluenza Virus 1 Not Detected (Not Detect); Parainfluenza Virus 2 Not Detected (Not Detect); Parainfluenza Virus 3 Not Detected (Not Detect); Parainfluenza Virus 4 Not Detected (Not Detect); Respiratory Syncytial Virus Not Detected (Not Detect)
[2017-08-06] MEDS ORDERED: Azithromycin 500 MG in D5% in Water 250 ML IVPB ONE (14:11)
[2017-08-06] MEDS: Budesonide/Formoterol 160/4.5 MDI IH SCH (21:20)
[2017-08-07] MEDS: Chloraseptic Spray 177 ML BOTTLE MM PRN ×2 (00:20→20:23)
[2017-08-07] MEDS: Insulin LISPRO 300 UNITS/3 ML VIAL SQ SCH ×3 (00:20→12:42)
[2017-08-07] MEDS: Ipratropium/Albuterol Neb 3 ML IH SCH ×7 (00:23→23:35)
[2017-08-07] MEDS: Pantoprazole 40 MG VIAL IVP SCH (06:05)
[2017-08-07] MEDS: D5% in 0.45% NACL 1,000 ML IVC SCH (06:41)
[2017-08-07] MEDS: Budesonide/Formoterol 160/4.5 MDI IH SCH ×2 (07:36→20:28)
[2017-08-07 07:47] LABS: Calcium 8.1 mg/dL (8.6-10.3); Eosinophils % 0.4 %; Mean Corpuscular Volume 96.1 fL (83.0-100.0); Potassium 4.3 mEq/L (3.5-5.1)
[2017-08-07 07:48] LABS: Hemoglobin 8.7 g/dL (11.5-15.4); Immature Granulocytes % 0.7 % (0-4); Immature Platelets 4.9 % (1.1-6.1); Lymphocytes # 0.3 K/mcL (0.6-4.6); Lymphocytes % 9.7 %; Mean Corpuscular HGB Conc 32.2 g/dL (31.6-35.5); Mean Platelet Volume 11.5 fL (9.4-12.4); Monocytes # 0.3 K/mcL (0.0-1.3); Monocytes % 9.4 %; Neutrophils # 2.2 K/mcL (1.6-8.9); Red Blood Count 2.81 M/mcL (3.82-4.97); Red Cell Distribution Width 17.2 % (11.5-14.5); Segmented Neutrophils % 79.8 %
[2017-08-07 08:09] LABS: Platelet Count 23 K/mcL (140-400)
[2017-08-07] MEDS: predniSONE 20 MG TABLET PO SCH (08:24)
[2017-08-07] MEDS: Cholecalciferol (D-3) 1,000 UNIT TABLET PO SCH ×2 (08:25→20:23)
[2017-08-07] MEDS: Aspirin Enteric Coated 81 MG Tablet PO SCH (08:25)
[2017-08-07] MEDS: Lactobacillus 1 EACH CAP.SPRINK PO SCH (08:25)
[2017-08-07] MEDS: Folic Acid 1 MG TABLET PO SCH (08:25)
[2017-08-07] MEDS: Azithromycin 250 MG in D5% in Water 250 ML IVPB SCH (08:25)
[2017-08-07 08:50] LABS: Platelet Estimate Decreased (Normal)
--- NOTE | 2017-08-07 16:30 | Electrocardiograph Report ---
[place] [id number] Test Date: 2017-08-05 Pat Name: Jeanette Shaffer Department: 104 Room: 2N15 Gender: F Right Of Way Buyer: : 1945 Requested By: Jr Johns Order Number: [id number] Reading MD: Rashawn Elizabeth Measurements Intervals [place] Rate: 98 P: 61 TX: 163 QRS: 8 QRSD: 93 T: 76 QT: 351 QTc: 407 Interpretive Statements SINUS RHYTHM Electronically Signed On 08-07-2017 16:28:47 EST by Rashawn Elizabeth
--- NOTE | 2017-08-07 16:34 | ENT - Consult Note ---
<Mary Kay Fitzpatrick - Last Filed: 08/08/17 14:24> Date of Encounter: 08/08/17 Time of Encounter: 16:19 Assessment and Plan (1) Hoarseness of voice Current Visit: Yes Status: Acute Patient seen and examined at bedside 08/07/16. Nasolaryngoscopy performed at bedside, patient noted to have pachydermic changes some mild edema of the supraglottis, mainly the false vocal cords and vocal cord atrophy or thinning of the vocal cords that would be contributed with age, with no other significant abnormalities noted. Recommend optimization of respiratory status to improve voice quality. Patient with vocal cord dysfunction related to overuse with loss of voice with increased use and also exacerbated by current pulmonary condition. Refer to speech therapy for Video stroboscopy and voice therapy. Would optimize treatment of her lungs prior to referral to speech therapy. (2) Chronic laryngitis Current Visit: Yes Status: Acute Patient reports past history of intermittent episodes of voice hoarseness ongoing for several years. Nasolaryngoscopy performed at bedside today with no significant abnormalities noted, there is slight atrophy of the vocal cords likely due to age related changes/vocal overuse. Recommend speech therapy at this time. (3) Nasal dryness Current Visit: Yes Status: Acute Nasal mucosa noted to be dry with crusting and scabbing bilaterally. Nasal saline rinses BID, with oxygen humidification recommended. (4) Acute exacerbation of chronic obstructive airways disease Current Visit: No Status: Acute Exacerbating her voice complaints at this time since voice is highly dependent on breathing and air production from the lungs. History of Present Illness Consult date: 08/07/17 Reason for ENT Consult: other (hoarseness) History of present illness: Patient is a 72 year old female admitted for acute respiratory failure with hypoxia. Patient is a poor historian, but states her symptoms of hoarseness have been present consistently for the last six weeks. She states she has had intermittent episodes of voice hoarseness for over 10 years. She states her voice hoarseness becomes worse after speaking for long periods of time. She does report a history of GERD and states she has symptoms "sometimes." Patient also reports symptoms present for several weeks, of post nasal drip and congestion that she associates with a recent cold. Past Med Surg Social Fam HX - Past Medical History Medical history: asthma, diabetes, hypertension, other Psychiatric history: no psych history - Past Surgical History Surgical History: hysterectomy, orthopedic, other - Social History Smoking Status: Never smoker Smokeless Tobacco Status: No Alcohol use: none Drug use: none - Family History Mother Living Status: Hx Family Neuromuscular Disorders: Yes (Stroke) Father Adopted: [place]: [place] Family Member Ethnicity: Non- Living Status: Age at : 55 Cause of : HI Hx Family Cardiac Disorders: Yes Hx Family Respiratory Disorders: No Hx Family Cancer: Yes Hx Family GI Disorders: No Hx Family Genitourinary Disorders: No Hx Family Endocrine Disorder: Yes Hx Family Musculoskeletal Disorders: No Hx Family Neuromuscular Disorders: No Hx Family Neurologic Disorders: No Hx Family HEENT Disorders: No Hx Family Autoimmune Disorders: No Hx Family Reproductive Disorders: Yes Hx Family Psychosocial Disorders: No Hx Family Medical Disorders: Yes Medications and Allergies Furosemide [Lasix] 40 mg PO DAILY 06/15/15 [History] Acetaminophen [Tylenol] 650 mg PO Q6HR PRN #0 tablet 06/18/15 [Rx] Ascorbic Acid [Vitamin C] 500 mg PO BID tablet 06/18/15 [Rx] Aspirin Enteric Coated [Aspirin EC] 81 mg PO DAILY #30 tablet.dr 06/18/15 [Rx] Cholecalciferol (D-3) 5,000 unit PO BID 30 Days tablet 06/18/15 [Rx] Docusate [Colace] 100 mg PO BID PRN #0 capsule 06/18/15 [Rx] Glimepiride [Amaryl] 4 mg PO DAILY tablet 06/18/15 [Rx] Insulin DETEMIR [Levemir] 26 unit SQ BID 30 Days [id number] 06/18/15 [Rx] Insulin LISPRO [HumaLOG] 8 units SQ TIDWM 30 Days vial 06/18/15 [Rx] Metformin [Glucophage] 1,000 mg PO BIDWM tablet 06/18/15 [Rx] Allopurinol [Zyloprim 100 MG] 200 mg PO DAILY 08/06/17 [History] Atorvastatin [Lipitor] 10 mg PO HS 08/06/17 [History] Benzonatate [Tessalon] 100 mg PO TID PRN 08/06/17 [History] Citalopram Hydrobromide [Citalopram HBr] 40 mg PO DAILY 08/06/17 [History] Cyanocobalamin (B-12) [Vitamin B12] 1,000 mcg IM QMONTH 08/06/17 [History] Folic Acid 1 mg PO DAILY 08/06/17 [History] Lisinopril [Lisinopril] 2.5 mg PO DAILY 08/06/17 [History] Spironolactone [Aldactone] 100 mg PO DAILY 08/06/17 [History] predniSONE [PredniSONE] 60 mg PO DAILY 08/06/17 [History] 3 Allergy/AdvReac Type Severity Reaction Status Date / Time No Known Drug Allergies Allergy See Verified 08/05/17 17:29 Comments ENT - ROS - Constitutional Constitutional ROS: as per HPI - EENT Nose, mouth and throat: change in voice, hoarseness ENT Exam Initial Vital Signs Temp Pulse Resp BP Pulse Ox 98.9 F 95 28 173/67 94 08/05/17 17:29 08/05/17 17:29 08/05/17 17:29 08/05/17 17:29 08/05/17 17:29 - General physical appearance no distress, no pain - Eyes normal ocular movement - ENT normal pinna, CN 2-12 grossly intact, Other (Patient is edentulous, normal oral mucosa. Nasal mucosa is dry with crusting noted bilaterally. Left nare with dried blood. Left TM normal, unable to visualize right TM due to obstructing cerumen. ) - Neck no masses, trachea midline, no lymphadectomy - Respiratory normal expansion, other (tachypnea noted upon exertion ) Exam Initial Vital Signs Temp Pulse Resp BP Pulse Ox 98.9 F 95 28 173/67 94 08/05/17 17:29 08/05/17 17:29 08/05/17 17:29 08/05/17 17:29 08/05/17 17:29 Results - Labs 08/07/17 07:12 08/07/17 07:12 Abnormal lab results WBC 2.8 K/mcL (4.3-11.1) L 08/07/17 07:12 RBC 2.81 M/mcL (3.82-4.97) L 08/07/17 07:12 Hgb 8.7 g/dL (11.5-15.4) L 08/07/17 07:12 Hct 27.0 % (35.3-44.9) L 08/07/17 07:12 RDW 17.2 % (11.5-14.5) H 08/07/17 07:12 Plt Count 23 K/mcL (140-400) L* 08/07/17 07:12 Lymphocytes # 0.3 K/mcL (0.6-4.6) L 08/07/17 07:12 Platelet Estimate Decreased (Normal) L 08/07/17 07:12 PT 15.2 Seconds (9.4-12.1) H 08/05/17 19:09 ABG pH 7.30 pH Units (7.32-7.45) L 08/05/17 19:56 ABG pCO2 29 mmHg (35-45) L 08/05/17 19:56 ABG pO2 81 mmHg (85-104) L 08/05/17 19:56 ABG HCO3 15 mEq/L (21-27) L 08/05/17 19:56 ABG Total CO2 15 mEq/L (20-26) L 08/05/17 19:56 ABG Base Excess -11 mEq/L (-2 to 3) L 08/05/17 19:56 Chloride 113 mEq/L (98-107) H 08/07/17 07:12 Carbon Dioxide 20 mEq/L (23-29) L 08/07/17 07:12 BUN 25 mg/dL (8-23) H 08/07/17 07:12 Est GFR ( Amer) 54 (> 60) L 08/07/17 07:12 Est GFR (Non-Af Amer) 44 (> 60) L 08/07/17 07:12 Glucose 126 mg/dL (70-105) H 08/07/17 07:12 POC Glucose 153 (58-89) H 08/07/17 05:54 Hemoglobin A1c 6.6 % (-5.6) H 08/06/17 06:11 Calcium 8.1 mg/dL (8.6-10.3) L 08/07/17 07:12 Iron 32 mcg/dL (50-170) L 08/06/17 06:11 Direct Bilirubin 0.3 mg/dL (0.0-0.2) H 08/05/17 18:12 B-Natriuretic Peptide 155 pg/mL (Less than 100) H 08/05/17 18:12 Albumin 3.3 g/dL (3.5-5.7) L 08/05/17 18:12 Albumin/Globulin Ratio 1.0 (1.1-2.2) L 08/05/17 18:12 Ur Specimen Adequacy See below A 08/05/17 19:28 Ur Specific [place] 1.028 (1.010-1.025) H 08/05/17 19:28 Urine Glucose (UA) >=1000 mg/dL (Normal) H 08/05/17 19:28 Urine Blood Small (Negative) H 08/05/17 19:28 Urine Microscopic RBC 5-15 per hpf (0-3) H 08/05/17 19:28 Urine Microscopic WBC 5-15 per hpf (0-3) H 08/05/17 19:28 Ur Squamous Epith Cells Many per lpf (None-Few) H 08/05/17 19:28 Urine Bacteria Moderate per hpf (None-Few) H 08/05/17 19:28 Diabetes panel 08/07/17 Range/Units 07:12 Sodium 136 (136-145) mEq/L Potassium 4.3 (3.5-5.1) mEq/L Chloride 113 H (98-107) mEq/L Carbon Dioxide 20 L (23-29) mEq/L BUN 25 H (8-23) mg/dL Creatinine 1.20 (0.60-1.20) mg/dL Glucose 126 H (70-105) mg/dL Calcium 8.1 L (8.6-10.3) mg/dL Calcium panel 08/07/17 Range/Units 07:12 Calcium 8.1 L (8.6-10.3) mg/dL Pituitary panel 08/07/17 Range/Units 07:12 Sodium 136 (136-145) mEq/L Potassium 4.3 (3.5-5.1) mEq/L Chloride 113 H (98-107) mEq/L Carbon Dioxide 20 L (23-29) mEq/L BUN 25 H (8-23) mg/dL Creatinine 1.20 (0.60-1.20) mg/dL Glucose 126 H (70-105) mg/dL Calcium 8.1 L (8.6-10.3) mg/dL Adrenal panel 08/07/17 Range/Units 07:12 Sodium 136 (136-145) mEq/L Potassium 4.3 (3.5-5.1) mEq/L Chloride 113 H (98-107) mEq/L Carbon Dioxide 20 L (23-29) mEq/L BUN 25 H (8-23) mg/dL Creatinine 1.20 (0.60-1.20) mg/dL Glucose 126 H (70-105) mg/dL Calcium 8.1 L (8.6-10.3) mg/dL All other labs normal. Consult Discharge Plan - Plan Referrals: Juan Miguel Decker [Primary Care Provider] - (Office is to call back with an appointment. Phone number is [phone]. The office wants the caregiver to call when patient gets home to make follow up appointment. Please fax info to [phone]) <Dana Pretty - Last Filed: 08/08/17 14:39> Date of Encounter: 08/08/17 ENT Exam Initial Vital Signs Temp Pulse Resp BP Pulse Ox 98.9 F 95 28 173/67 94 08/05/17 17:29 08/05/17 17:29 08/05/17 17:29 08/05/17 17:29 08/05/17 17:29 Exam Initial Vital Signs Temp Pulse Resp BP Pulse Ox 98.9 F 95 28 173/67 94 08/05/17 17:29 08/05/17 17:29 08/05/17 17:29 08/05/17 17:29 08/05/17 17:29 Results - Labs 08/07/17 07:12 08/07/17 07:12 Abnormal lab results WBC 2.8 K/mcL (4.3-11.1) L 08/07/17 07:12 RBC 2.81 M/mcL (3.82-4.97) L 08/07/17 07:12 Hgb 8.7 g/dL (11.5-15.4) L 08/07/17 07:12 Hct 27.0 % (35.3-44.9) L 08/07/17 07:12 RDW 17.2 % (11.5-14.5) H 08/07/17 07:12 Plt Count 23 K/mcL (140-400) L* 08/07/17 07:12 Lymphocytes # 0.3 K/mcL (0.6-4.6) L 08/07/17 07:12 Platelet Estimate Decreased (Normal) L 08/07/17 07:12 PT 15.2 Seconds (9.4-12.1) H 08/05/17 19:09 ABG pH 7.30 pH Units (7.32-7.45) L 08/05/17 19:56 ABG pCO2 29 mmHg (35-45) L 08/05/17 19:56 ABG pO2 81 mmHg (85-104) L 08/05/17 19:56 ABG HCO3 15 mEq/L (21-27) L 08/05/17 19:56 ABG Total CO2 15 mEq/L (20-26) L 08/05/17 19:56 ABG Base Excess -11 mEq/L (-2 to 3) L 08/05/17 19:56 Chloride 113 mEq/L (98-107) H 08/07/17 07:12 Carbon Dioxide 20 mEq/L (23-29) L 08/07/17 07:12 BUN 25 mg/dL (8-23) H 08/07/17 07:12 Est GFR ( Amer) 54 (> 60) L 08/07/17 07:12 Est GFR (Non-Af Amer) 44 (> 60) L 08/07/17 07:12 Glucose 126 mg/dL (70-105) H 08/07/17 07:12 POC Glucose 168 (58-89) H 08/08/17 01:58 Hemoglobin A1c 6.6 % (-5.6) H 08/06/17 06:11 Calcium 8.1 mg/dL (8.6-10.3) L 08/07/17 07:12 Iron 32 mcg/dL (50-170) L 08/06/17 06:11 Direct Bilirubin 0.3 mg/dL (0.0-0.2) H 08/05/17 18:12 B-Natriuretic Peptide 155 pg/mL (Less than 100) H 08/05/17 18:12 Albumin 3.3 g/dL (3.5-5.7) L 08/05/17 18:12 Albumin/Globulin Ratio 1.0 (1.1-2.2) L 08/05/17 18:12 Ur Specimen Adequacy See below A 08/05/17 19:28 Ur Specific [place] 1.028 (1.010-1.025) H 08/05/17 19:28 Urine Glucose (UA) >=1000 mg/dL (Normal) H 08/05/17 19:28 Urine Blood Small (Negative) H 08/05/17 19:28 Urine Microscopic RBC 5-15 per hpf (0-3) H 08/05/17 19:28 Urine Microscopic WBC 5-15 per hpf (0-3) H 08/05/17 19:28 Ur Squamous Epith Cells Many per lpf (None-Few) H 08/05/17 19:28 Urine Bacteria Moderate per hpf (None-Few) H 08/05/17 19:28 All other labs normal. - Attending Attestation Agree with above assessment and plan as this patient was seen and examined by myself and flexible laryngoscopy was performed by myself at the bedside. treatment plan was developed and discussed with the nurse practicioner. I agree with the current plan of care. Would recommend further optimization and treatment of her current pulmonary exacerbation and then outside referral to Speech therapy for video stroboscopy and follow up with ENT afterwards. in 4-6 months.
--- NOTE | 2017-08-07 19:15 | Internal Med Progress Note ---
Date of Encounter: 08/07/17 Time of Encounter: 11:00 - Assessment and plan (1) Acute exacerbation of chronic obstructive airways disease Current Visit: No Status: Acute Assessment and plan: -Continue duo nebs with IV azithromycin (2) Acute respiratory failure with hypoxia Current Visit: Yes Status: Acute Assessment and plan: Acute hypoxic respiratory failure secondary to acute exacerbation of asthma Continue DuoNeb breathing treatment, Prednisone, Azithromycin, Symbicort, O2 via NC Respiratory infectious panel - negative Chest x-ray - stable on no acute process Soft tissue neck CT - no acute abnormality CT chest - no acute process, enlarged main pulmonary artery, cholelithiasis, cirrhosis with ascites Troponin < 0.03 BNP - 155 EKG - sinus rhythm with no acute ST-T changes Sputum culture - pending (3) Liver cirrhosis secondary to nonalcoholic steatohepatitis ([facility]ENRIQUEZ) Current Visit: Yes Status: Chronic Assessment and plan: Chronic history of nonalcoholic steatohepatitis - with moderate amount of ascites Associated with chronic thrombocytopenia and hypersplenism syndrome Patient's pain need therapeutic paracentesis if ascites is worse (4) Hoarseness of voice Current Visit: Yes Status: Acute Assessment and plan: Probable cord dysfunction or GERD Continue Protonix 40 mg IV ENT consult pending (5) DVT prophylaxis Current Visit: Yes Status: Acute Assessment and plan: SCDs, avoid anticoagulants due to thrombocytopenia - Subjective Interval history: Patient continues to complain of hoarseness this morning. - Constitutional Vitals: Temp Pulse Resp BP Pulse Ox 98.9 F 98 24 184/83 97 08/07/17 16:29 08/07/17 16:29 08/07/17 16:29 08/07/17 16:29 08/07/17 16:29 General appearance: Present: cooperative, mild distress, A&O X 3, pleasant, obese, answers questions appropriately Internal Medicine: Result - Labs CBC & Chem 7: 08/07/17 07:12 08/07/17 07:12 Labs: Short CBC 08/07/17 Range/Units 07:12 WBC 2.8 L (4.3-11.1) K/mcL Hgb 8.7 L (11.5-15.4) g/dL Hct 27.0 L (35.3-44.9) % Plt Count 23 L* (140-400) K/mcL Neutrophils # 2.2 (1.6-8.9) K/mcL BMP 08/07/17 07:12 Sodium 136 Potassium 4.3 Chloride 113 H Carbon Dioxide 20 L BUN 25 H Creatinine 1.20 Glucose 126 H Calcium 8.1 L - ABG Interpretation ABG results: ABG ABG pH 7.30 pH Units (7.32-7.45) L 08/05/17 19:56 ABG pCO2 29 mmHg (35-45) L 08/05/17 19:56 ABG pO2 81 mmHg (85-104) L 08/05/17 19:56 ABG O2 Saturation 95 % (95-98) 08/05/17 19:56 PT/INR, D-dimer PT 15.2 Seconds (9.4-12.1) H 08/05/17 19:09 Consult Discharge Plan - Plan Referrals: Juan Miguel Decker [Primary Care Provider] - (Office is to call back with an appointment. Phone number is [phone]. The office wants the caregiver to call when patient gets home to make follow up appointment. Please fax info to [phone])
[2017-08-07] MEDS: Benzonatate 100 MG CAPSULE PO PRN (20:23)
[2017-08-07] MEDS ORDERED: Insulin LISPRO 300 UNITS/3 ML VIAL SQ SCH (21:00)
[2017-08-08] MEDS: Chloraseptic Spray 177 ML BOTTLE MM PRN (00:19)
[2017-08-08] MEDS ORDERED: Insulin LISPRO 300 UNITS/3 ML VIAL SQ ONE (00:30)
[2017-08-08] MEDS: Ipratropium/Albuterol Neb 3 ML IH SCH ×4 (03:46→16:05)
[2017-08-08] MEDS: Pantoprazole 40 MG VIAL IVP SCH (06:35)
[2017-08-08] MEDS: Budesonide/Formoterol 160/4.5 MDI IH SCH (07:55)
[2017-08-08] MEDS: Insulin LISPRO 300 UNITS/3 ML VIAL SQ SCH ×2 (08:00→13:23)
[2017-08-08] MEDS: Lactobacillus 1 EACH CAP.SPRINK PO SCH (08:05)
[2017-08-08] MEDS: Cholecalciferol (D-3) 1,000 UNIT TABLET PO SCH (08:05)
[2017-08-08] MEDS: predniSONE 20 MG TABLET PO SCH (08:06)
[2017-08-08] MEDS: Folic Acid 1 MG TABLET PO SCH (08:06)
[2017-08-08] MEDS: Aspirin Enteric Coated 81 MG Tablet PO SCH (08:06)
[2017-08-08] MEDS: Azithromycin 250 MG in D5% in Water 250 ML IVPB SCH (08:06)
--- NOTE | 2017-08-08 14:35 | ENT - Procedure Note ---
Date of procedure: 08/08/17 Pre-op diagnosis: dysphonia Post-op diagnosis: other (dysphonia, presbylarynx) Procedure: Flexible laryngoscopy: Procedure was explained to the patient at the bedside verbal consent was obtained. Bilateral nares are sprayed with a 50-50 mixture of oxymetazoline and topical lidocaine. Time was given to allow anesthesia as well as decongestion of the nasal airway. Flexible laryngoscope was then advanced into the right naris. Nasal mucosa was dry and atrophic. Scope was further advanced, nasopharynx showed dry mucosa with some mucoid crusting with some old dried blood, tongue base was normal without mass or lesion, epiglottis was normal, piriform sinuses were open without mass or obstruction. True vocal cords had normal mobility but atrophic in appearance. Good glottic opening with small glottic gap and bowing of the vocal cords bilaterally. Subglottis showed no obstruction. T False cords were slightly edematous. Arytenoids had edematous mucosa. Interarytenoid space had pachydermic changes. There were pachydermic changes of the posterior cricoid area at esophageal inlet. Scope was removed. Patient tolerated this procedure well. Overall assessment shows that she has some mild edema of the supraglottic structures that may be related to reflux vs recent exacerbation of her Chronic lung condition.. There is no obstruction or mass blocking her airway. Airway is fully patent. There is some thinning of the vocal cords consistent with presbyopia larynx. CPT: 88675 Laryngoscopy, flexible fiberoptic; diagnostic Anesthesia: topical Was there an distribution center assistant present: No Estimated blood loss (cc): 0 Specimens collected: none
--- NOTE | 2017-08-08 17:16 | Discharge Summary ---
Date of Encounter: 08/08/17 Time of Encounter: 11:00 - Discharge Diagnosis (1) Acute exacerbation of chronic obstructive airways disease Priority: Primary Status: Acute (2) Acute respiratory failure with hypoxia Priority: Primary Status: Acute (3) Liver cirrhosis secondary to nonalcoholic steatohepatitis ([facility]RIQUEZ) Priority: Secondary Status: Chronic (4) Hoarseness of voice Priority: Secondary Status: Acute - Discharge Medications Home Medications: Furosemide [Lasix] 40 mg PO DAILY 06/15/15 [History] Acetaminophen [Tylenol] 650 mg PO Q6HR PRN #0 tablet 06/18/15 [Rx] Ascorbic Acid [Vitamin C] 500 mg PO BID tablet 06/18/15 [Rx] Aspirin Enteric Coated [Aspirin EC] 81 mg PO DAILY #30 tablet.dr 06/18/15 [Rx] Cholecalciferol (D-3) 5,000 unit PO BID 30 Days tablet 06/18/15 [Rx] Docusate [Colace] 100 mg PO BID PRN #0 capsule 06/18/15 [Rx] Glimepiride [Amaryl] 4 mg PO DAILY tablet 06/18/15 [Rx] Insulin DETEMIR [Levemir] 26 unit SQ BID 30 Days [id number] 06/18/15 [Rx] Insulin LISPRO [HumaLOG] 8 units SQ TIDWM 30 Days vial 06/18/15 [Rx] Metformin [Glucophage] 1,000 mg PO BIDWM tablet 06/18/15 [Rx] Allopurinol [Zyloprim 100 MG] 200 mg PO DAILY 08/06/17 [History] Atorvastatin [Lipitor] 10 mg PO HS 08/06/17 [History] Benzonatate [Tessalon] 100 mg PO TID PRN 08/06/17 [History] Citalopram Hydrobromide [Citalopram HBr] 40 mg PO DAILY 08/06/17 [History] Cyanocobalamin (B-12) [Vitamin B12] 1,000 mcg IM QMONTH 08/06/17 [History] Folic Acid 1 mg PO DAILY 08/06/17 [History] Lisinopril 2.5 mg PO DAILY 08/06/17 [History] Spironolactone [Aldactone] 100 mg PO DAILY 08/06/17 [History] predniSONE [PredniSONE] 60 mg PO DAILY 08/06/17 [History] Allergies/Adverse Reactions: 3 Allergy/AdvReac Type Severity Reaction Status Date / Time No Known Drug Allergies Allergy See Verified 08/05/17 17:29 Comments Date of admission: 08/06/17 07:47 Primary care physician: Juan Miguel Decker Consults: 08/06/17 12:06 Consult to ENT [CONS] Routine Consulting Provider: KAREN Bruno Reason for Consult: HOARSENESS OF VOICE, POSSIBLE VOCAL CORD DYSFUNCTION Call Completed: No - Patient Status Disposition: Home, Self-Care Condition: Good - Discharge Instructions Follow Up With: Juan Miguel Decker [Primary Care Provider] - (Office is to call back with an appointment. Phone number is [phone]. The office wants the caregiver to call when patient gets home to make follow up appointment. Please fax info to [phone]) Hospital course: Patient is a 72-year-old female with past medical history significant for asthma , cirrhosis, diabetes, hypertension who presented to the ER on 08/06/17 due to shortness of breath and hoarseness with congestion. Patient stated that her shortness of breath developed over a period of time and has not gotten any better. In addition she has also developed a hoarseness to her voice which has progressed to a constant whisper. Patient was evaluated at [facility] and nothing was done at that time. She said nothing seems to help this shortness of breath and hoarseness, and nothing seems to make it significantly worse other than exertion. During patients hospital stay her symptoms shortness of breath improved with treatment of COPD exacerbation with azithromycin and dual nebs. ENT was consulted for hoarseness and laryngoscopy was done without any significant acute findings. She will be discharged to follow-up with primary care provider. - Time Spent with Patient Total time spent providing and/or coordinating discharge services: Less than 30 minutes - Constitutional Vitals: Temp Pulse Resp BP Pulse Ox 98.2 F 87 18 116/68 96 08/08/17 11:00 08/08/17 11:00 08/08/17 11:52 08/08/17 11:00 08/08/17 11:52 General appearance: Present: cooperative, mild distress, A&O X 3, pleasant, obese, answers questions appropriately - Respiratory Respiratory exam: Present: CTAB. Absent: accessory muscle use, rales, rhonchi, wheezes - Cardiovascular Cardiovascular exam: Present: RRR, +S1, +S2. Absent: diastolic murmur, gallop, rubs, systolic murmur
[2017-08-08 17:19] VITALS: BP 145/103
== END 2017-08-08 17:50 | disposition home or self-care (01) | DRG 190 ==
LOC: EMEROO 16:39 → 2NNU 16:39 → SUATTDRO 08-06 07:47
PROVIDERS: ADMIT Internal Medicine; ATTEND Hospitalist

== ENCOUNTER 2017-10-30 18:21 | Inpatient (IN) ==
--- NOTE | 2017-10-30 22:31 | Internal Med History&Physical ---
Addendum entered and electronically signed by Ely Escobar MD 10/31/17 07:16: Seen pt with attending, apparent patient lacking full insight into disease. Recommend conversation regarding prognosis while family present. Original Note: <Ely Escobar - Last Filed: 10/31/17 03:17> Date of Encounter: 10/31/17 Time of Encounter: 22:31 Assessment and Plan (1) Cirrhosis of liver with ascites Current visit: Yes Status: Acute 72-year-old female with diabetes, hypertension and liver cirrhosis 2/2 to HENRIQUEZ presenting with SOB and abdominal ascites. No fever, abdominal pain or tenderness or Altered mental status on exam. Child-Shaffer Classification Score: 9 (AO x 3, Ascites, Luis < 2 mg/dL, Albumin < 2.8, INR < 1.7) Dietary education, 2 g per day sodium restricted diet Recommend diagnostic paracentesis in AM, with rule out of spontaneous bacterial peritonitis Consult IR for evaluation for candidacy for therapeutic large-volume paracentesis Avoid medications that decrease renal perfusion Qualifiers: Hepatic cirrhosis type: unspecified hepatic cirrhosis Qualified Code(s): K74.60 - Unspecified cirrhosis of liver (2) Acute kidney injury superimposed on chronic kidney disease Current visit: Yes Status: Acute Cr >0.3 increase from baseline ANTONIO likely 2/2 to Hepatorenal syndrome - Type 2, however prerenal etiology cannot be excluded due to outpatient diuretic- and NSAIDs Midodrine PO 7.5 mg and increasing the dose at eight-hour intervals, may increase up to a maximum of 15 mg by mouth three times daily Octreotide IV infusion Albumin as intravenous bolus until midodrine and octreotide therapy is discontinued. (3) Hepatorenal syndrome Current visit: Yes Status: Acute As plan above. (4) Active asthma Current visit: No Status: Chronic No wheezing on PE.Supplemental O2, with pulse goal SaO2> 90%. Medical management: Symbicort 160/4.52 puffs twice a day Inhaled CAROL prn (5) Diabetes mellitus type 2 in obese Current visit: No Status: Chronic Insulin sliding scale, adjust as needed. Acchuchecks q6h. Initiate Hypoglycemia protocol, as needed. (6) Hypertension Current visit: Yes Status: Acute SBP on admit in 170s. Will hold nephrotoxic medication. Hydralazine PRN for elevated BP. Qualifiers: Hypertension type: essential hypertension Qualified Code(s): I10 - Essential (primary) hypertension (7) Depression Current visit: Yes Status: Chronic Continue home medications. Qualifiers: Depression Type: major depressive disorder Major depression recurrence: recurrent Active/Remission status: currently active Major depression episode severity: unspecified Qualified Code(s): F33.9 - Major depressive disorder, recurrent, unspecified (8) Fall Current visit: Yes Status: Acute Pt on fall precautions. Order Head CT w/o contrast. Qualifiers: Encounter type: initial encounter Qualified Code(s): W19.XXXA - Unspecified fall, initial encounter (9) Hypersplenism Current visit: Yes Status: Acute OSH Abdomen/Pelvis CT stating splenomegaly measuring up to 23 cm. On CBC With associated changes of hypersplenism, including thrombocytopenia and low WBC. Continue serial CBC. (10) DVT prophylaxis Current visit: No Status: Acute MADIE Score: 5 -Pharmalogical prophylaxis indicated, however risk of bleeding increased. Platelet count 32. Mechanical prophylaxis Internal Medicine - H&P: HPI Chief complaint: SOB Admitted From: Home History of present illness: Ms. Shaffer is a 72 year old female with non-alcoholic cirrhosis, asthma, diabetes , and hypertension presenting with SOB x 1 month, with acute progression of SOB over last week. Pt states SOB concomitant with increase in abdominal girth over past. Pt endorses fatigue, anorexia and decreased mobility. States abdomen feels "full". Denies nausea. Denies abdominal pain. Denies shortness of breath. Denies any confusion. Family denies any change in baseline mentation. Pt has lost to follow-up with PCP as outpatient. She states she has no other complaints and would like to eat something at this time. Pt states she fell yesterday from her bed, and unsure whether she hit her head. Past Med Surg Social Fam HX - Past Medical History Medical history: asthma, cirrhosis, diabetes, hypertension, other Psychiatric history: no psych history - Past Surgical History Surgical History: hysterectomy, orthopedic, other - Social History Smoking Status: Never smoker Smokeless Tobacco Status: No Alcohol use: none Drug use: none - Family History Mother Living Status: Hx Family Neuromuscular Disorders: Yes (Stroke) Father Adopted: No Family Member Ethnicity: Non- Living Status: Hx Family Cardiac Disorders: Yes Hx Family Respiratory Disorders: No Hx Family Cancer: Yes Hx Family GI Disorders: No Hx Family Endocrine Disorder: Yes Hx Family Neuromuscular Disorders: No Hx Family Neurologic Disorders: No Hx Family HEENT Disorders: No Hx Family Autoimmune Disorders: No Internal Medicine - H&P: Meds Cholecalciferol (D-3) 5,000 unit PO BID 30 Days tablet 06/18/15 [Rx] Glimepiride [Amaryl] 4 mg PO DAILY tablet 06/18/15 [Rx] Allopurinol [Zyloprim 100 MG] 200 mg PO DAILY 08/06/17 [History] Atorvastatin [Lipitor] 10 mg PO HS 08/06/17 [History] Citalopram Hydrobromide [Citalopram HBr] 40 mg PO DAILY 08/06/17 [History] Cyanocobalamin (B-12) [Vitamin B12] 1,000 mcg IM QMONTH 08/06/17 [History] Folic Acid 1 mg PO DAILY 08/06/17 [History] Spironolactone [Aldactone] 100 mg PO DAILY 08/06/17 [History] Furosemide [Lasix] 20 mg PO QAM 10/31/17 [History] Insulin ASPART [Novolog] 12 unit SQ QPM 10/31/17 [History] Insulin ASPART [Novolog] 22 unit SQ QAM 10/31/17 [History] Budesonide/Formoterol 160/4.5 [Symbicort 160/4.5] 2 puff IH BIDR #1 inhaler [Rx] Propranolol [Inderal] 20 mg PO BID #10 tablet 11/21/17 [Rx] amLODIPine [Norvasc] 5 mg PO DAILY 5 Days #5 tablet 11/21/17 [Rx] 3 Allergy/AdvReac Type Severity Reaction Status Date / Time No Known Drug Allergies Allergy See Verified 10/31/17 08:46 Comments All Systems PM: A 10-system review of systems was performed and is negative for pertinent findings except as documented above in the HPI. - Constitutional Constitutional: as per HPI - Cardiovascular Cardiovascular ROS IM: as per HPI - Respiratory Respiratory: as per HPI - Gastrointestinal Gastrointestinal: as per HPI - Neurological Neurological ROS: as per HPI - Constitutional Vitals: Temp Pulse Resp BP Pulse Ox 98.1 F 71 15 177/80 96 10/30/17 20:35 10/30/17 20:35 10/30/17 20:35 10/30/17 20:35 10/30/17 21:02 General appearance: Present: cooperative, A&O X 3, no acute distress, answers questions appropriately - Respiratory Respiratory exam: Present: respiratory distress (mild). Absent: chest wall tenderness, wheezes Additional comments: Breath sounds equal bilaterally - Expanded Respiratory Exam Location: rales: Lower - Cardiovascular Cardiovascular exam: Present: RRR, +S1, +S2 - GI/Abdominal GI/Abdominal exam: Present: distended, normal bowel sounds. Absent: tenderness Additional comments: tense abdomen - Extremities Exam Extremities exam: Present: full ROM, pedal edema (mild b/l legs, non-pitting ). Absent: calf tenderness, tenderness Additional comments: patellar reflex +2 bilaterally. Strength 5/5. No pronounced palmar erythema. - Neurological Exam Neurological exam: Absent: altered, facial droop, speech deficit Additional comments: Strength equal and symmetric against resistance on b/l LE. Internal Med - H&P Results - Labs Labs: Outside labs reviewed with Dr. Vargas Sodium 138, potassium 4.2, chloride 108, carbon dioxide 20, BUN 56, creatinine 2.13, BUN/creatinine ratio 26.5, glucose 301. Estimated glomerular filtration 24 Calcium 8.4 Magnesium level 2.0 Liver panel Total protein 6.1 Albumin 2.7 Globulin 3.4 ALT 33 AST 35 Alkaline phosphatase 93 Bilirubin, total 1.80 Bilirubin, direct 0.6 Calculated osmol 293 - EKG Data EKG comments: 10/30/2017 15: 25: 57 ECG Rate 81. DE 169. QRS 94. QT 45. QTC 470. Sinus Rhythm Reviewed with Dr. Vargas. - Impressions Outside Hospital Imaging Report Reviewed with Dr. Vargas. 10/30/17 CT abdomen and pelvis examination Impression 1. Advanced morphological changes of chronic liver disease with the sequelae of portal hypertension including splenomegaly, [id number] abdominal ascites, varices and a recannulized paraumbilical vein 2. [id number] left pleural effusion with mild to moderate arise moderate generalized body wall edema 3. Cholelithiasis without evidence of acute inflammation. Electronically signed by Roland Haney M.D. <Bia Vargas - Last Filed: 11/23/17 08:18> Date of Encounter: 10/30/17 Internal Medicine - H&P: HPI History of present illness: Ms. Shaffer is a 72 year old female All Systems PM: A 10-system review of systems was performed and is negative for pertinent findings except as documented above in the HPI. - Constitutional Vitals: Temp Pulse Resp BP Pulse Ox 97.3 F L 58 16 128/61 93 11/23/17 06:59 11/23/17 06:59 11/23/17 07:41 11/23/17 06:59 11/23/17 07:41 Internal Med - H&P Results - Labs CBC & Chem 7: 11/23/17 04:27 11/23/17 04:27 Labs: Short CBC 11/23/17 Range/Units 04:27 WBC 1.2 L (4.3-11.1) K/mcL Hgb 8.9 L (11.5-15.4) g/dL Hct 26.8 L (35.3-44.9) % Plt Count 17 L* D (140-400) K/mcL Neutrophils # 0.6 L (1.6-8.9) K/mcL BMP 11/23/17 04:27 Sodium 136 Potassium 4.2 Chloride 99 Carbon Dioxide 26 BUN 51 H Creatinine 4.23 H Glucose 127 H Calcium 8.9 Liver Function 11/23/17 Range/Units 04:27 Total Bilirubin 2.3 H (0.3-1.0) mg/dL AST 23 (13-39) Units/L ALT 10 (7-52) Units/L Alkaline Phosphatase 61 (34-104) Units/L Albumin 3.3 L (3.5-5.7) g/dL - Impressions ITS Impressions Head CT 10/31/17 02:11 IMPRESSION: No acute intracranial abnormality. D/ / Cristobal Barrios MD / Cristobal Barrios MD Interpreting Provider: Cristobal Barrios MD Abdomen/Pelvis CT 10/31/17 17:00 IMPRESSION: 1. Moderate-sized left pleural effusion with adjacent dependent left lung atelectasis. 2. Coronary artery disease. 3. Hepatic cirrhosis with morphologic features of portal hypertension as evidenced by large volume ascites, splenomegaly, and upper abdominal varices. 4. Cholelithiasis. D/ / 10/31/2017 17:48:55 Violeta Hernandez MD / deneen Interpreting Provider: Violeta Hernandez MD Chest CT 10/31/17 17:00 IMPRESSION: 1. Moderate-sized left pleural effusion with adjacent dependent left lung atelectasis. 2. Coronary artery disease. 3. Hepatic cirrhosis with morphologic features of portal hypertension as evidenced by large volume ascites, splenomegaly, and upper abdominal varices. 4. Cholelithiasis. D/ / 10/31/2017 17:48:55 Violeta Hernandez MD / deneen Interpreting Provider: Violeta Hernandez MD Retroperitoneum Ultrasound 10/31/17 17:30 IMPRESSION: 1. Normal kidneys. No evidence of obstructive uropathy. 2. Large amount ascites. 3. Splenomegaly. D/ / Bud Norwood / Bud Norwood Interpreting Provider: Bud Norwood Paracentesis Ultrasound 11/01/17 00:00 IMPRESSION: Successful ultrasound guided paracentesis. D/ / Francois Villeda MD / Francois Villeda MD Interpreting Provider: Francois Villeda MD Echocardiogram 11/01/17 12:23 Impressions: LVEF 60-65%. Normal LV chamber size, wall thickness and function. Moderate left ventricular diastolic dysfunction. Normal right ventricular structure and function. Mild aortic stenosis. Mean gradient 13 mmHg. Mild-moderate pulmonary hypertension. Estimated RVSP is 45 mmHg. Left Ventricular Wall Motion: Rest Echo Findings All wall segments showed normal motion. Findings: Study Quality * Technically adequate exam. ECG Findings * Normal sinus rhythm. Left Ventricle * LVEF 60-65%. * Normal LV chamber size, wall thickness and function. * Moderate left ventricular diastolic dysfunction. Right Ventricle * Normal right ventricular structure and function. Left Atrium * Moderately dilated left atrium. Right Atrium * Mildly dilated right atrium. Interatrial Septum * Interatrial septum not well evaluated. Aortic Valve * Trileaflet aortic valve. * Mildly calcified aortic valve leaflets. * No aortic regurgitation. * Mild aortic stenosis. Mean gradient 13 mmHg. Mitral Valve * Mild mitral annular calcification * Trace mitral regurgitation. * No mitral stenosis. Tricuspid Valve * Normal tricuspid valve structure and function. * Trace tricuspid regurgitation. * Mild-moderate pulmonary hypertension. * Estimated RVSP is 45 mmHg. * Estimated RA pressure is 5 mmHg. Pulmonic Valve * Normal pulmonic valve structure and function. * No pulmonic regurgitation. Aorta * Normally sized aortic root. Pericardium * The pericardium appears normal. IVC * Normal IVC dimensions and inspiratory collapse. Pulmonary Artery * Normal visualized portions of the main pulmonary artery. Chest X-Ray 11/07/17 08:10 IMPRESSION: Cardiomegaly and bilateral diffuse interstitial and alveolar opacities which may represent acute congestive heart failure versus possible atypical pneumonia. D/ / 11/07/2017 08:35:17 Jaiden Bland MD / Daniella Frank Interpreting Provider: Jaiden Bland MD Guidance Needle Placement Ultrasound 11/08/17 00:00 IMPRESSION: Successful ultrasound guided non-tunneled catheter placement. D/ / 11/08/2017 15:46:45 Laure Johnson MD / parish Interpreting Provider: Laure Johnson MD Insertion Non-Tunneled Catheter 11/08/17 00:00 IMPRESSION: Successful ultrasound guided non-tunneled catheter placement. D/ / 11/08/2017 15:46:45 Laure Johnson MD / parish Interpreting Provider: Laure Johnson MD Paracentesis Ultrasound 11/08/17 08:19 IMPRESSION: Successful ultrasound guided paracentesis. D/ / Laure Johnson MD / Laure Johnson MD Interpreting Provider: Laure Johnson MD Chest X-Ray 11/08/17 14:24 IMPRESSION: 1. Right transjugular central venous catheter terminating in the superior vena cava. 2. Enlarged cardiac silhouette with pulmonary interstitial edema. D/ / Maynor Shaffer MD / Maynor Shaffer MD Interpreting Provider: Maynor Shaffer MD Guidance Needle Placement Ultrasound 11/20/17 00:00 IMPRESSION: Successful ultrasound and fluoroscopy guided tunneled catheter placement . D/ / Francois Villeda MD / Francois Villeda MD Interpreting Provider: Francois Villeda MD Insertion Tunneled Catheter 11/20/17 00:00 IMPRESSION: Successful ultrasound and fluoroscopy guided tunneled catheter placement . D/ / Francois Villeda MD / Francois Villeda MD Interpreting Provider: Francois Villeda MD Chest X-Ray 11/21/17 11:07 IMPRESSION: Right IJ dialysis catheter tip projects over the lower SVC. Increased pulmonary edema. D/ / Cristobal Barrios MD / Cristobal Barrios MD Interpreting Provider: Cristobal Barrios MD - Attending Attestation I personally and independently interviewed and examined the patient, and I reviewed the patient's medical record . I am in agreement with the resident's assessment and proposed treatment plan. I discussed my findings and recommendation with the patient and answer all questions. The patient's medical records were edited to accurately reflect this encounter.
[2017-10-30] MEDS ORDERED: Naloxone 0.4 MG/ML INJ IVP PRN (23:29)
[2017-10-30] MEDS ORDERED: Furosemide 40 MG TABLET PO ONE (23:32)
[2017-10-30] MEDS ORDERED: D5% in Water 1,000 ML IVC PRN (23:56)
[2017-10-30] MEDS ORDERED: Dextrose Gel 15 GM/37.5 ML TUBE PO PRN ×2 (23:56)
[2017-10-30] MEDS ORDERED: *HR* Dextrose 50 % in Water (Syg) 50 ML SYRINGE IVP PRN (23:56)
[2017-10-31] MEDS ORDERED: Acetaminophen 325 MG TABLET PO PRN (00:31)
[2017-10-31] MEDS ORDERED: Beclomethasone 80mcg MDI IH SCH (00:45)
[2017-10-31] MEDS: Insulin DETEMIR 100 UNIT/ML X5UNITS SQ SCH ×2 (01:05→21:21)
[2017-10-31] MEDS ORDERED: Albumin 25% 25gram/100mL 25 GM/100 ML IV.SOLN IVPB ONE (01:41)
[2017-10-31] MEDS ORDERED: hydrALAZINE 10 MG TABLET PO PRN (02:15)
[2017-10-31 06:34] LABS: Chloride,Urine 47 mEq/L; Creatinine,Urine 98 mg/dL; Microalbumin,Urine > 450 mg/L; Potassium,Urine 18.8 mEq/L
[2017-10-31 06:41] LABS: INR 1.5
[2017-10-31 06:44] LABS: Activated Partial Thrombo Time 32.2 Seconds (26.0-36.0); Albumin 2.8 g/dL (3.5-5.7); Albumin/Globulin Ratio 0.8 (1.1-2.2); Bilirubin,Total 2.2 mg/dL (0.3-1.0); Calcium 8.7 mg/dL (8.6-10.3); Globulin 3.4 g/dL (2.4-3.5); Total Protein 6.2 g/dL (6.4-8.9)
[2017-10-31] MEDS ORDERED: Albumin 25% 25gram/100mL 25 GM/100 ML IV.SOLN IVPB SCH (08:00)
[2017-10-31] MEDS ORDERED: Furosemide 40 MG TABLET PO SCH (09:00)
[2017-10-31] MEDS ORDERED: Aspirin Enteric Coated 81 MG Tablet PO SCH (09:00)
[2017-10-31] MEDS: Insulin LISPRO 300 UNITS/3 ML VIAL SQ SCH ×3 (09:25→19:16)
[2017-10-31] MEDS: Octreotide 50 MCG/ML SYRINGE IVP SCH ×2 (09:26→19:18)
[2017-10-31 09:31] LABS: Basophils % 0.5 %
[2017-10-31 09:32] LABS: Eosinophils # 0.1 K/mcL (0.0-0.6); Eosinophils % 3.7 %; Hematocrit 26.6 % (35.3-44.9); Hemoglobin 8.9 g/dL (11.5-15.4); Lymphocytes # 0.4 K/mcL (0.6-4.6); Lymphocytes % 23.2 %; Mean Corpuscular HGB Conc 33.5 g/dL (31.6-35.5); Mean Corpuscular Volume 95.7 fL (83.0-100.0); Mean Platelet Volume 11.5 fL (9.4-12.4); Monocytes # 0.2 K/mcL (0.0-1.3); Monocytes % 8.4 %; Neutrophils # 1.2 K/mcL (1.6-8.9); Nucleated Red Blood Cells 1.1 /100 WBC (0); Red Blood Count 2.78 M/mcL (3.82-4.97); Red Cell Distribution Width 16.1 % (11.5-14.5); Segmented Neutrophils % 64.2 %
[2017-10-31 09:44] LABS: Platelet Count 19 K/mcL (140-400)
[2017-10-31] MEDS: Budesonide/Formoterol 160/4.5 MDI IH SCH ×2 (11:42→21:38)
--- NOTE | 2017-10-31 12:49 | Nephrology Consult Note ---
Date of Encounter: 10/31/17 Time of Encounter: 12:46 History of Present Illness - Reason for Consult Consult date: 10/31/17 Acute Kidney Injury, Chronic Kidney Disease - Chief Complaint ANTONIO on CKD - History of Present Illness Ms. Shaffer is a 72 yo woman with a history of cirrhosis and CKD who presents with not feeling well and was found to have ascites and ANTONIO on CKD. Patient reports that she recently noticed increased abdominal girth despite decreased oral intake. She denies nausea vomiting or diarrhea. She was unaware of previous kidney problems. She was admitted to the hospital where she was found to have acute kidney injury on chronic kidney disease. At the time my evaluation she is feeling slightly better and is awaiting a paracentesis. She denies NSAID use. She does admit to decreased oral intake. Past Med Surg Social Fam HX - Past Medical History Medical history: asthma, cirrhosis, diabetes, hypertension, other Psychiatric history: no psych history - Past Surgical History Surgical History: hysterectomy, orthopedic, other - Social History Smoking Status: Never smoker Smokeless Tobacco Status: No Alcohol use: none Drug use: none - Family History Mother Living Status: Hx Family Neuromuscular Disorders: Yes (Stroke) Father Adopted: No Family Member Ethnicity: Non- Living Status: Hx Family Cardiac Disorders: Yes Hx Family Respiratory Disorders: No Hx Family Cancer: Yes Hx Family GI Disorders: No Hx Family Endocrine Disorder: Yes Hx Family Neuromuscular Disorders: No Hx Family Neurologic Disorders: No Hx Family HEENT Disorders: No Hx Family Autoimmune Disorders: No Medications and Allergies Acetaminophen [Tylenol] 650 mg PO Q6HR PRN #0 tablet 06/18/15 [Rx] Cholecalciferol (D-3) 5,000 unit PO BID 30 Days tablet 06/18/15 [Rx] Glimepiride [Amaryl] 4 mg PO DAILY tablet 06/18/15 [Rx] Allopurinol [Zyloprim 100 MG] 200 mg PO DAILY 08/06/17 [History] Atorvastatin [Lipitor] 10 mg PO HS 08/06/17 [History] Citalopram Hydrobromide [Citalopram HBr] 40 mg PO DAILY 08/06/17 [History] Cyanocobalamin (B-12) [Vitamin B12] 1,000 mcg IM QMONTH 08/06/17 [History] Folic Acid 1 mg PO DAILY 08/06/17 [History] Spironolactone [Aldactone] 100 mg PO DAILY 08/06/17 [History] Furosemide [Lasix] 20 mg PO QAM 10/31/17 [History] Insulin ASPART [Novolog] 12 unit SQ QPM 10/31/17 [History] Insulin ASPART [Novolog] 22 unit SQ QAM 10/31/17 [History] 3 Allergy/AdvReac Type Severity Reaction Status Date / Time No Known Drug Allergies Allergy See Verified 10/31/17 08:46 Comments Review of Systems All Systems: reviewed and no additional remarkable complaints except as stated ( as per hpi) Exam - Vital Signs Vital signs: Initial Vital Signs Temp Pulse Resp BP Pulse Ox 98.1 F 71 15 177/80 96 10/30/17 20:35 10/30/17 20:35 10/30/17 20:35 10/30/17 20:35 10/30/17 20:35 Vital Signs - Last 8 Hours Temp Pulse Resp BP Pulse Ox 10/31/17 12:21 97 10/31/17 11:51 97.9 F 63 16 146/75 97 10/31/17 11:45 16 94 10/31/17 07:25 98.2 F 79 16 157/77 92 10/31/17 05:29 98.3 F 79 15 167/74 97 Intake and Output 10/30/17 10/31/17 10/31/17 23:59 07:59 15:59 Intake Total 0 / 0 120 / 120 Output Total 600 / 600 200 / 200 Balance -600 / -600 -80 / -80 Intake: Oral 0 / 0 120 / 120 Output: Urine 600 / 600 200 / 200 Other: Meal Breakfast Percent of Meal Consumed 90% Weight 98.911 kg 99.2 kg Blood Glucose* 126 170 Patient Weight 10/31/17 23:59 Weight 99.2 kg - General Appearance General appearance: well-developed, well-nourished, obese EENT: ATNC Neck: supple Respiratory: course breath sounds Cardiology: edema, regular rate, regular rhythm Gastrointestinal: normoactive bowel sounds, no tenderness, no guarding, distended Integumentary: warm and dry Neurologic: alert and oriented x3 Musculoskeletal: no cyanosis Psychiatric: mood/affect appropriate Results - Lab Results 10/31/17 08:17 10/31/17 05:29 Most recent lab results Calcium 8.7 mg/dL (8.6-10.3) 10/31/17 05:29 Magnesium 2.0 mg/dL (1.6-2.6) 10/31/17 05:29 Urine Creatinine 98 mg/dL 10/31/17 05:45 Urine Sodium 40.0 mEq/L 10/31/17 05:45 Consult Discharge Plan - Plan Referrals: Rashawn Michaels MD [Non-Partnered Physician] - 11/07/17 2:30 pm
--- NOTE | 2017-10-31 12:53 | Event Note ---
Date of Encounter: 10/31/17 Time of Encounter: 12:50 I am unable to enter the A&P on the electronic note. This serves as an addendum to the consult note. Acute kidney injury on chronic kidney disease stage III Metabolic acidosis Pancytopenia Cirrhosis Symptomatically ascites Debility Plan The patient has chronic kidney disease stage III since about 2014. She now has acute kidney injury that is likely secondary to volume depletion from decreased oral input. Her home medication list included diuretics which could be contributing to her ANTONIO. I recommend gentle hydration especially in light of her symptomatic ascites. I recommend albumin if she receives paracentesis. I will check a urinalysis, a renal ultrasound, and labs for autoimmune diseases in light of her proteinuria. If she has not already had a workup for pancytopenia consider a hematology consult although this is likely related to her cirrhosis. Consider GI consult for the cirrhosis. Workup for anemia as ordered. At this time she does not warrant a renal biopsy or hemo - dialysis.
--- NOTE | 2017-10-31 12:55 | Internal Med Progress Note ---
Date of Encounter: 10/31/17 Time of Encounter: 12:41 - Assessment and plan (1) Cirrhosis of liver with ascites Current Visit: Yes Status: Acute Assessment and plan: 72-year-old female with diabetes, hypertension and liver cirrhosis 2/2 to HENRIQUEZ presenting with SOB and abdominal ascites. No fever, abdominal pain or tenderness or Altered mental status on exam. Child-Shaffer Classification Score: 9 (AO x 3, Ascites, Luis < 2 mg/dL, Albumin < 2.8, INR < 1.7) Dietary education, 2 g per day sodium restricted diet Paracentesis cannot be done today because of thrombocytopenia. INR is 1.5 - I was notified by blood bank that there is shortage of platelets and patient is unable to get for procedure. - Will get CT abdomen/pelvis to evaluate fluid in the time being - Recheck INR and platelets tomorrow in AM - Lab/ Blood bank discussed that they will notify me if platelets become available. - Will consult GI for cirrhosis - Nephrology consulted (ANTONIO on CKD with hepatorenal syndrome) - Will discuss with Nephrology about medical management for fluid removal since paracentesis cannot be done at this time. Qualifiers: Hepatic cirrhosis type: unspecified hepatic cirrhosis Qualified Code(s): K74.60 - Unspecified cirrhosis of liver (2) Acute kidney injury superimposed on chronic kidney disease Current Visit: Yes Status: Acute Assessment and plan: Nephrology consulted, recommendations appreciated. (3) Hepatorenal syndrome Current Visit: Yes Status: Acute Assessment and plan: Plan as above (4) Fall Current Visit: Yes Status: Acute Assessment and plan: PT.OT CT head negative Fall precautions Qualifiers: Encounter type: initial encounter Qualified Code(s): W19.XXXA - Unspecified fall, initial encounter (5) Hypersplenism Current Visit: Yes Status: Acute (6) Hypertension Current Visit: Yes Status: Acute Assessment and plan: SBP on admit in 170s. Will hold nephrotoxic medication. Hydralazine PRN for elevated BP. Qualifiers: Hypertension type: essential hypertension Qualified Code(s): I10 - Essential (primary) hypertension (7) Depression Current Visit: Yes Status: Chronic Qualifiers: Depression Type: major depressive disorder Major depression recurrence: recurrent Active/Remission status: currently active Major depression episode severity: unspecified Qualified Code(s): F33.9 - Major depressive disorder, recurrent, unspecified (8) Active asthma Current Visit: No Status: Chronic (9) Diabetes mellitus type 2 in obese Current Visit: No Status: Chronic Assessment and plan: Insulin sliding scale, adjust as needed. Acchuchecks q6h. Initiate Hypoglycemia protocol, as needed. (10) Thrombocytopenia Current Visit: No Status: Chronic Assessment and plan: Plan as above No [facility] [place] [facility] (11) DVT prophylaxis Current Visit: No Status: Acute Assessment and plan: Mechanical prophylaxis Pt thrombocytopenic - Subjective Interval history: Patient states breathing is about the same. IR paracentesis could not be done today due to platelet count low. - Constitutional Vitals: Temp Pulse Resp BP Pulse Ox 97.9 F 63 16 146/75 97 10/31/17 11:51 10/31/17 11:51 10/31/17 11:51 10/31/17 11:51 10/31/17 12:21 General appearance: Present: cooperative, A&O X 3, no acute distress, answers questions appropriately Internal Medicine: Result - Labs CBC & Chem 7: 10/31/17 08:17 10/31/17 05:29 Labs: Short CBC 10/31/17 Range/Units 08:17 WBC 1.9 L (4.3-11.1) K/mcL Hgb 8.9 L (11.5-15.4) g/dL Hct 26.6 L (35.3-44.9) % Plt Count 19 L* (140-400) K/mcL Neutrophils # 1.2 L (1.6-8.9) K/mcL BMP 10/31/17 05:29 Sodium 138 Potassium 4.0 Chloride 111 H Carbon Dioxide 21 L BUN 61 H Creatinine 2.03 H Glucose 139 H Calcium 8.7 Liver Function 10/31/17 Range/Units 05:29 Total Bilirubin 2.2 H (0.3-1.0) mg/dL AST 29 (13-39) Units/L ALT 16 (7-52) Units/L Alkaline Phosphatase 75 (34-104) Units/L Albumin 2.8 L (3.5-5.7) g/dL - ABG Interpretation ABG results: PT/INR, D-dimer PT 16.0 Seconds (9.4-12.1) H 10/31/17 05:29 - Impressions Impressions Head CT 10/31/17 02:11 IMPRESSION: No acute intracranial abnormality. D/ / Cristobal Barrios MD / Cristobal Barrios MD Interpreting Provider: Cristobal Barrios MD Consult Discharge Plan - Plan Referrals: Rashawn Michaels MD [Non-Partnered Physician] - 11/07/17 2:30 pm
[2017-10-31] MEDS ORDERED: 0.9 % Sodium Chloride 250 ML ONE (14:15)
[2017-10-31] MEDS: hydrALAZINE 10 MG TABLET PO PRN (19:52)
[2017-11-01] MEDS: Octreotide 50 MCG/ML SYRINGE IVP SCH ×4 (01:42→23:54)
[2017-11-01 05:30] LABS: Basophils % 0.5 %; Immature Granulocytes % 0.5 % (0-4)
[2017-11-01 05:32] LABS: Eosinophils % 1.5 %; Hemoglobin 8.7 g/dL (11.5-15.4); Immature Platelets 3.1 % (1.1-6.1); Lymphocytes # 0.4 K/mcL (0.6-4.6); Lymphocytes % 18.1 %; Mean Corpuscular HGB Conc 33.5 g/dL (31.6-35.5); Mean Corpuscular Hemoglobin 31.9 pg (28.0-33.3); Mean Corpuscular Volume 95.2 fL (83.0-100.0); Mean Platelet Volume 12.8 fL (9.4-12.4); Monocytes # 0.1 K/mcL (0.0-1.3); Monocytes % 6.5 %; Neutrophils # 1.5 K/mcL (1.6-8.9); Red Blood Count 2.73 M/mcL (3.82-4.97); Red Cell Distribution Width 16.6 % (11.5-14.5); Segmented Neutrophils % 72.9 %
[2017-11-01 05:33] LABS: INR 1.5; Prothrombin Time 16.6 Seconds (9.4-12.1)
[2017-11-01 05:36] LABS: Platelet Count 24 K/mcL (140-400)
[2017-11-01 05:51] LABS: Calcium 8.6 mg/dL (8.6-10.3); Potassium 4.6 mEq/L (3.5-5.1)
[2017-11-01 05:55] LABS: Magnesium 2.1 mg/dL (1.6-2.6); Phosphorous 4.7 mg/dL (2.7-4.5)
[2017-11-01 05:58] LABS: Anisocytosis 1+ (Not Present); Hypochromasia Present (Not Present); Platelet Estimate Decreased (Normal)
[2017-11-01 06:14] LABS: Vitamin B12 1163 pg/mL (250-1100)
[2017-11-01 06:20] LABS: Folate > 22.3 ng/mL (3.0-16.0)
[2017-11-01] MEDS: Budesonide/Formoterol 160/4.5 MDI IH SCH ×2 (08:07→20:56)
[2017-11-01] MEDS: Insulin LISPRO 300 UNITS/3 ML VIAL SQ SCH ×3 (08:33→17:59)
[2017-11-01 09:32] LABS: Protein/Creatinine Ratio,Urine 0.78 mg/mg (0.00-0.20)
--- NOTE | 2017-11-01 10:50 | Gastroenterology Consult Note ---
<Lupe Salazar - Last Filed: 11/01/17 10:47> Date of Encounter: 11/01/17 Time of Encounter: 09:30 - Assessment and plan (1) Liver cirrhosis secondary to nonalcoholic steatohepatitis (FIGUEROA) Current Visit: No Status: Chronic Assessment and plan: Meld NA 22 Child frost 9. Pt is already on aldactone and lasix but has renal failure, will continued diuretics as per nephrology. May be a candidate for TIPs procedure. She has pancytopenia. May need lactulose to ensure 2-4 BM a day. She is past due for EGD for varices surveillene, will discuss with Dr Ramirez. (2) Ascites Current Visit: No Status: Chronic Assessment and plan: Pt scheduled for paracentesis per IR today. Qualifiers: Ascites type: other type Qualified Code(s): R18.8 - Other ascites - Time Spent With Patient Total time spent is greater than 50% in coordination of care (as documented) at patient's floor/unit and/or counseling patient: GI History of Present Illness - Data of Consult Patient: new to practice Consult date: 11/01/17 Requesting Physician: Xochitl Alfred MD - Consult Narrative Reason for consult: cirrhosis History of present illness: Ms. Shaffer is a 72 year old female with non-alcoholic cirrhosis, asthma, diabetes , and hypertension. She presents with SOB x 1 month, with acute progression of SOB over last week. Pt repports increased abdominal girth, fatigue, anorexia and decreased mobility. States abdomen feels "full". She denies lower extremity edema. She had nausea, yesterday only, denies abdominal pain. Denies any confusion. Family denies any change in baseline mentation. Pt has lost to follow -up with PCP as outpatient. Pt states she fell yesterday from her bed, and unsure whether she hit her head. She is on aldactone 100 mg daily and lasix 20 mg po daily at home. Labs show a WBC 2.0, Hgb 8.7, Platelet count 24, iNR 1.5, creat 2.16, t bili 2.2, ast 29, alt 16, alk phos 75, albumin 2.8. MELD NA: 22 child frost: 9 Colonoscopy: denies EGD: 02/17 no varices, nodule at GE junction benign NSAIDS/ASA: asa 81 mg Anticoagulants: Past Med Surg Social Fam HX - Past Medical History Medical history: asthma, cirrhosis, diabetes, hypertension, other Psychiatric history: no psych history - Past Surgical History Surgical History: hysterectomy, orthopedic, other - Social History Smoking Status: Never smoker Smokeless Tobacco Status: No Alcohol use: none Drug use: none - Family History Mother Living Status: Hx Family Neuromuscular Disorders: Yes (Stroke) Father Adopted: No Family Member Ethnicity: Non- Living Status: Hx Family Cardiac Disorders: Yes Hx Family Respiratory Disorders: No Hx Family Cancer: Yes Hx Family GI Disorders: No Hx Family Endocrine Disorder: Yes Hx Family Neuromuscular Disorders: No Hx Family Neurologic Disorders: No Hx Family HEENT Disorders: No Hx Family Autoimmune Disorders: No Review of Systems: GI: as per ANVIK GENERAL: denies fever or chills EYES: denies yellow discoloration ENT: denies pain with swallowing or difficulty swallowing CARDIO: denies chest pain, palpitations RESP: Shortness of breath with exertion : denies change in color of urine NEURO: increased weakness HEME: Denies any bruising MS: chronic joint pain. DERM: denies rash or itching PSYCH: Denies history of anxiety or depression - Constitutional Vitals: Temp Pulse Resp BP Pulse Ox 97.9 F 73 20 149/63 93 11/01/17 07:49 11/01/17 07:49 11/01/17 07:49 11/01/17 07:49 11/01/17 07:49 Exam: CONSTITUTIONAL:~alert, no acute distress.~HEAD:~normocephalic.~EYES:~no jaundice.~NECK:~no obvious swelling.~HEART:~regular rate and rhythm, no murmurs. ~LUNGS:~bilateral poor air entry.~ABDOMEN:~distended, non tender, no masses palpable, ascites noted.~RECTAL EXAM:~Deferred.~EXTREMITIES:~no clubbing, cyanosis or edema.~SKIN:~pallor noted, no stigmata of chronic liver disease.~ NEUROLOGIC:~no obvious focal defect.~~~~ Results - Labs CBC & Chem 7: 11/01/17 04:47 11/01/17 04:47 Labs: Last Result Calcium 8.6 mg/dL (8.6-10.3) 11/01/17 04:47 Iron 52 mcg/dL (50-170) 11/01/17 04:47 % Saturation 19 % (15-50) 11/01/17 04:47 Transferrin 192 mg/dL (203-362) L 11/01/17 04:47 Ferritin 81 ng/ml (10-120) 11/01/17 04:47 Vitamin B12 1163 pg/mL (250-1100) H 11/01/17 04:47 Folate > 22.3 ng/mL (3.0-16.0) H 11/01/17 04:47 Entire Visit Hgb 8.7 g/dL (11.5-15.4) L 11/01/17 04:47 Hct 26.0 % (35.3-44.9) L 11/01/17 04:47 PT 16.6 Seconds (9.4-12.1) H 11/01/17 04:47 Ferritin 81 ng/ml (10-120) 11/01/17 04:47 Total Bilirubin 2.2 mg/dL (0.3-1.0) H 10/31/17 05:29 AST 29 Units/L (13-39) 10/31/17 05:29 ALT 16 Units/L (7-52) 10/31/17 05:29 Folate > 22.3 ng/mL (3.0-16.0) H 11/01/17 04:47 - ABG ABG results: PT/INR, D-dimer PT 16.6 Seconds (9.4-12.1) H 11/01/17 04:47 - Impressions Impressions Abdomen/Pelvis CT 10/31/17 17:00 IMPRESSION: 1. Moderate-sized left pleural effusion with adjacent dependent left lung atelectasis. 2. Coronary artery disease. 3. Hepatic cirrhosis with morphologic features of portal hypertension as evidenced by large volume ascites, splenomegaly, and upper abdominal varices. 4. Cholelithiasis. D/ / 10/31/2017 17:48:55 Violeta Hernandez MD / deneen Interpreting Provider: Violeta Hernandez MD Chest CT 10/31/17 17:00 IMPRESSION: 1. Moderate-sized left pleural effusion with adjacent dependent left lung atelectasis. 2. Coronary artery disease. 3. Hepatic cirrhosis with morphologic features of portal hypertension as evidenced by large volume ascites, splenomegaly, and upper abdominal varices. 4. Cholelithiasis. D/ / 10/31/2017 17:48:55 Violeta Hernandez MD / deneen Interpreting Provider: Violeta Hernandez MD Retroperitoneum Ultrasound 10/31/17 17:30 IMPRESSION: 1. Normal kidneys. No evidence of obstructive uropathy. 2. Large amount ascites. 3. Splenomegaly. D/ / Bud Norwood / Bud Norwood Interpreting Provider: Bud Norwood Consult Discharge Plan - Plan Referrals: Rashawn Michaels MD [Non-Partnered Physician] - 11/07/17 2:30 pm <Hero Ramirez - Last Filed: 11/01/17 19:35> Date of Encounter: 11/01/17 Time of Encounter: 18:00 - Time Spent With Patient Total time spent is greater than 50% in coordination of care (as documented) at patient's floor/unit and/or counseling patient: GI History of Present Illness - Data of Consult Requesting Physician: Xochitl Alfred MD - Consult Narrative History of present illness: Ms. Shaffer is a 72 year old female - Constitutional Vitals: Temp Pulse Resp BP Pulse Ox 97.8 F 76 18 165/75 93 11/01/17 11:26 11/01/17 11:26 11/01/17 11:26 11/01/17 11:26 11/01/17 11:26 Results - Labs CBC & Chem 7: 11/01/17 04:47 11/01/17 04:47 Labs: Last Result Calcium 8.6 mg/dL (8.6-10.3) 11/01/17 04:47 Iron 52 mcg/dL (50-170) 11/01/17 04:47 % Saturation 19 % (15-50) 11/01/17 04:47 Transferrin 192 mg/dL (203-362) L 11/01/17 04:47 Ferritin 81 ng/ml (10-120) 11/01/17 04:47 Vitamin B12 1163 pg/mL (250-1100) H 11/01/17 04:47 Folate > 22.3 ng/mL (3.0-16.0) H 11/01/17 04:47 Entire Visit Hgb 8.7 g/dL (11.5-15.4) L 11/01/17 04:47 Hct 26.0 % (35.3-44.9) L 11/01/17 04:47 PT 16.6 Seconds (9.4-12.1) H 11/01/17 04:47 Ferritin 81 ng/ml (10-120) 11/01/17 04:47 Total Bilirubin 2.2 mg/dL (0.3-1.0) H 10/31/17 05:29 AST 29 Units/L (13-39) 10/31/17 05:29 ALT 16 Units/L (7-52) 10/31/17 05:29 Folate > 22.3 ng/mL (3.0-16.0) H 11/01/17 04:47 - ABG ABG results: PT/INR, D-dimer PT 16.6 Seconds (9.4-12.1) H 11/01/17 04:47 - Impressions Impressions Abdomen/Pelvis CT 10/31/17 17:00 IMPRESSION: 1. Moderate-sized left pleural effusion with adjacent dependent left lung atelectasis. 2. Coronary artery disease. 3. Hepatic cirrhosis with morphologic features of portal hypertension as evidenced by large volume ascites, splenomegaly, and upper abdominal varices. 4. Cholelithiasis. D/ / 10/31/2017 17:48:55 Violeta Hernandez MD / deneen Interpreting Provider: Violeta Hernandez MD Chest CT 10/31/17 17:00 IMPRESSION: 1. Moderate-sized left pleural effusion with adjacent dependent left lung atelectasis. 2. Coronary artery disease. 3. Hepatic cirrhosis with morphologic features of portal hypertension as evidenced by large volume ascites, splenomegaly, and upper abdominal varices. 4. Cholelithiasis. D/ / 10/31/2017 17:48:55 Violeta Hernandez MD / deneen Interpreting Provider: Violeta Hernandez MD Paracentesis Ultrasound 11/01/17 00:00 IMPRESSION: Successful ultrasound guided paracentesis. D/ / Francois Villeda MD / Francois Villeda MD Interpreting Provider: Francois Villeda MD - Attending Attestation I have personally performed a face to face evaluation on this patient. I have reviewed and agree with the care plan. History and Exam by me shows: Patient seen and examined. Patient with Figueroa cirrhosis now with refractory ascites. Also has chronic kidney disease. We will defer management of diuretics to nephrology. When necessary ascitic tap for ascites control. May end up requiring TIPS at some point for her ascites management if that becomes an issue
--- NOTE | 2017-11-01 12:20 | Nephrology Progress Note ---
Date of Encounter: 11/01/17 Time of Encounter: 09:00 - Assessment and Plan (1) Acute kidney injury Current Visit: No Status: Acute Patient denies hx of CKD. on chart review, Cr baseline is ~1. On admission Cr 2.03 and BUN 62. GFR in the past has been 44-60, most likely has CKD. Will need further outpatient nephro workup once discharged. ANTONIO is most likely due to prerenal Azotemia in the setting of cirrhosis/ascites. patient has pancytopenia, most likely in the setting of cirrhosis. - encourage oral fluid intake - U/A ordered - will closely monitor Cr - renal diet - avoid nephrotoxins - renal dosing - strict I/O (2) Cirrhosis of liver with ascites Current Visit: Yes Status: Acute per primary team Qualifiers: Hepatic cirrhosis type: unspecified hepatic cirrhosis Qualified Code(s): K74.60 - Unspecified cirrhosis of liver (3) Heart murmur Current Visit: Yes Status: Acute on exam, patient has 2/5 systolic heart murmur on 2nd L IC, and 1+ bilateral pitting edema. Patient reports recently feeling SOB. Patient has no hx of heart disease, but concerned for possible CHF. - echo ordered. Subjective Principal diagnosis: antonio on ckd Interval history: Ms Shaffer is a 72 yo F w/ pmh of cirrhosis, asthma, diabetes, HTN presents with ANTONIO. Nephrology is consulted for ANTONIO. Patient is seen and examined. Patient denies hx of CKD. Patient had 4L removed through paracentesis this morning. She reports feeling better after fluid was removed. Patient denies cp, sob, n/v , abdominal pain, f/c. Objective - Vital Signs Vital signs: Vital Signs Temp Pulse Resp BP Pulse Ox 11/01/17 11:26 97.8 F 76 18 165/75 93 11/01/17 07:49 97.9 F 73 20 149/63 93 11/01/17 03:27 97.9 F 73 15 143/66 93 10/31/17 23:38 98.2 F 76 15 190/75 93 10/31/17 21:38 18 95 10/31/17 21:23 96 10/31/17 19:14 98.1 F 72 15 183/75 96 10/31/17 16:50 98.1 F 70 18 156/71 94 10/31/17 15:31 97.6 F 74 15 144/73 92 10/31/17 15:04 98.6 F 82 18 155/74 95 10/31/17 14:49 98.1 F 74 18 145/73 95 10/31/17 12:21 97 Intake and Output 10/31/17 11/01/17 11/01/17 23:59 07:59 15:59 Intake Total 460 / 460 0 / 0 Output Total 0 / 0 400 / 400 Balance 460 / 460 -400 / -400 Intake: IV Fluids 20 / 20 0.9 % Sodium Chloride 250 ML @ 20 / 20 0 mls/hr .ROUTE .MOVL-MED ONE Rx #:[id number] Oral 240 / 240 0 / 0 Blood Product 200 / 200 Platelet Pheresis Lp Irr 1st 200 / 200 Unit [id number] Output: Urine 0 / 0 400 / 400 Other: Stool Size Large Small Stool Consistency formed formed Stool Characteristics Normal for Patient Stool Color Brown Brown # Bowel Movements 1 Blood Glucose* 213 160 - General Appearance General appearance: Present: appears started age, obese Neck: Present: supple Cardiology: Present: holosystolic murmur, edema (1+ bilateral lower extremity edema), regular rate, regular rhythm Additional Comments: 2nd IC on left Gastrointestinal: Present: normoactive bowel sounds, no guarding Integumentary: Present: warm and dry Neurologic: Present: no focal deficit, alert and oriented x3 Psychiatric: Present: mood/affect appropriate, cooperative - Lab 11/01/17 04:47 11/01/17 04:47 Most recent lab results Calcium 8.6 mg/dL (8.6-10.3) 11/01/17 04:47 Phosphorus 4.7 mg/dL (2.7-4.5) H 11/01/17 04:47 Magnesium 2.1 mg/dL (1.6-2.6) 11/01/17 04:47 Urine Creatinine 98 mg/dL 10/31/17 05:45 Urine Sodium 40.0 mEq/L 10/31/17 05:45 Urine Total Protein 76 mg/dL (1-14) H 10/31/17 05:45 Consult Discharge Plan - Plan Referrals: Rashawn Michaels MD [Non-Partnered Physician] - 11/07/17 2:30 pm
[2017-11-01 15:19] LABS: Immature Reticulocyte % 23.9 % (11.0-38.0); Reticulocyte % 3.6 % (1.6-2.8)
--- NOTE | 2017-11-01 15:37 | Oncology Inp Consult Note ---
<Kamila De Jesus S - Last Filed: 11/02/17 08:51> Date of Encounter: 11/02/17 - Data of Consult Requesting Physician: Xochitl Alfred MD Primary Care Provider: Juan Miguel Decker - Consult Narrative History of present illness: Ms. Shaffer is a 72 year old female Medications and Allergies Acetaminophen [Tylenol] 650 mg PO Q6HR PRN #0 tablet 06/18/15 [Rx] Cholecalciferol (D-3) 5,000 unit PO BID 30 Days tablet 06/18/15 [Rx] Glimepiride [Amaryl] 4 mg PO DAILY tablet 06/18/15 [Rx] Allopurinol [Zyloprim 100 MG] 200 mg PO DAILY 08/06/17 [History] Atorvastatin [Lipitor] 10 mg PO HS 08/06/17 [History] Citalopram Hydrobromide [Citalopram HBr] 40 mg PO DAILY 08/06/17 [History] Cyanocobalamin (B-12) [Vitamin B12] 1,000 mcg IM QMONTH 08/06/17 [History] Folic Acid 1 mg PO DAILY 08/06/17 [History] Spironolactone [Aldactone] 100 mg PO DAILY 08/06/17 [History] Furosemide [Lasix] 20 mg PO QAM 10/31/17 [History] Insulin ASPART [Novolog] 12 unit SQ QPM 10/31/17 [History] Insulin ASPART [Novolog] 22 unit SQ QAM 10/31/17 [History] 3 Allergy/AdvReac Type Severity Reaction Status Date / Time No Known Drug Allergies Allergy See Verified 10/31/17 08:46 Comments Oncology - Exam - Constitutional Vitals: Temp Pulse Resp BP Pulse Ox 97.8 F 76 18 165/75 93 11/01/17 11:26 11/01/17 11:26 11/01/17 11:26 11/01/17 11:26 11/01/17 11:26 Oncology - Results Labs: Short CBC 11/01/17 Range/Units 04:47 WBC 2.0 L (4.3-11.1) K/mcL Hgb 8.7 L (11.5-15.4) g/dL Hct 26.0 L (35.3-44.9) % Plt Count 24 L* (140-400) K/mcL Neutrophils # 1.5 L (1.6-8.9) K/mcL BMP 11/01/17 04:47 Sodium 139 Potassium 4.6 Chloride 113 H Carbon Dioxide 20 L BUN 62 H Creatinine 2.16 H Glucose 177 H Calcium 8.6 Consult Discharge Plan - Plan Referrals: Rashawn Michaels MD [Non-Partnered Physician] - 11/07/17 2:30 pm - Attending Attestation 1. Cirrhosis with end-stage liver disease. Most likely cirrhosis is secondary to long-standing diabetes. Anti- mitochondrial antibody negative Alpha-fetoprotein 2.5 in 2014 and we will repeat that Large Volume ascites and hepatosplenomegaly spleen size about 20 cm by CAT scan 10/31/2017 4 L of acetic fluid drained around 11/01/2017. AST ALT normal INR 1.5 Gastroenterology involved. I am not sure if she would be a candidate for TIPS/ liver transplant 2. Acute on chronic renal failure. Her baseline creatinine increased to 2 range from 1. Nephrology involved 3. Pancytopenia. Platelet count 20,000. Her platelet counts are in this range dating back to 02/16/2015. Neutrophilslow at 1500 hemoglobin 8.7 MCV 95 B12 folate TSH normal Her hematological problems cannot be reversed given end-stage liver disease. Recommend platelet transfusion if platelet counts drop below 10,000 or clinical evidence of bleeding <Aliza Benito L - Last Filed: 11/02/17 16:00> Date of Encounter: 11/01/17 Time of Encounter: 15:37 Assessment and Plan (1) Pancytopenia Status: Acute Assessment and plan: Chronic, dating on lab work back to 2014, in the setting of liver cirrhosis secondary to HENRIQUEZ with imaging evidence of morphologic features of portal hypertension as evidenced by large volume ascites, splenomegaly, and upper abdominal varices. Iron, ferritin, B12 and folate repleted. Pancytopenia most likely consistent with cirrhosis of the liver/splenomegaly Lab data from 02/21/15 does list mild M-spike 0.3, current SPEP pending, calcium normal, GFR 23. Further lab work pending: SPEP, serum free light chains, AFP, Retic count, LDH, Haptoglobin, TSH, blood smear with pathology review Continue to monitor CBC, transfuse for platelet count <10 or with clinical sign of bleeding, hgb <7. No role for bone marrow biopsy at this juncture. She would benefit from hematology follow up with Dr. De Jesus as outpatient as well (2) Liver cirrhosis secondary to nonalcoholic steatohepatitis (HENRIQUEZ) Status: Chronic Assessment and plan: Meld NA 22 Child frost 9. G.I. consult reviewed: May be a candidate for TIPs procedure. She is past due for EGD for varices surveillance, will discuss with Dr Ramirez. Hepatitis panel negative. Last AFP from 02/17 was 2.5, current AFP pending. Ascites S/P thoracentesis with removal of 4L straw colored fluid ANTONIO on CKD with hepatorenal syndrome Nephrology on board - Data of Consult Patient: new to practice Consult date: 11/01/17 Requesting Physician: Xochitl Alfred MD Primary Care Provider: Juan Miguel Decker - Consult Narrative Reason for consult: Pancytopenia History of present illness: Ms. Shaffer is a 72 year old female with past medical history significant for non- alcoholic cirrhosis, asthma, diabetes, and hypertension presented to [facility] on with report of SOB x 1 month, with acute progression of SOB over last week. Patient also endorses an increase in abdominal girth with a "full" feeling , fatigue, anorexia and decreased mobility. Denies nausea, abdominal pain, diarrhea, melena, hematochezia or confusion. Patient herself, appears to be quite a poor historian. She has lost follow up with her PCP. She states she was just diagnosed with cirrhosis, however, she has imaging and pancytopenia suggestive of such in this system indicating such, dating back to 2014. Most recent imaging of CT chest/abdomen/pelvis on 10/03/2017 shows moderate- sized left pleural effusion with adjacent dependent left lung atelectasis, Coronary artery disease, Hepatic cirrhosis with morphologic features of portal hypertension as evidenced by large volume ascites, splenomegaly, and upper abdominal varices and Cholelithiasis. Past Med Surg Social Fam HX - Past Medical History Medical history: asthma, cirrhosis, diabetes, hypertension, other Psychiatric history: no psych history - Past Surgical History Surgical History: hysterectomy, orthopedic, other - Social History Smoking Status: Never smoker Smokeless Tobacco Status: No Alcohol use: none Drug use: none - Family History Mother Living Status: Hx Family Neuromuscular Disorders: Yes (Stroke) Father Adopted: No Family Member Ethnicity: Non- Living Status: Hx Family Cardiac Disorders: Yes Hx Family Respiratory Disorders: No Hx Family Cancer: Yes Hx Family GI Disorders: No Hx Family Endocrine Disorder: Yes Hx Family Neuromuscular Disorders: No Hx Family Neurologic Disorders: No Hx Family HEENT Disorders: No Hx Family Autoimmune Disorders: No Review of systems: difficult to obtain, patient very poor historia Constitutional: Present: anorexia, fatigue, weight gain. Absent: chills, fever( s), frequent falls, headache(s), weight loss Eyes: Absent: change in vision Nose, mouth and throat: Absent: dysphagia, headache(s) Cardiovascular: Absent: chest pain, irregular heart rhythm, palpitations Respiratory: Present: as per HPI, dyspnea. Absent: cough Gastrointestinal: Present: as per HPI, abdominal pain, nausea, vomiting. Absent : dysphagia, hematemesis, hematochezia, melena Additional comments: ascites Genitourinary: Absent: dysuria Musculoskeletal: Present: muscle weakness, myalgias Integumentary: Absent: wounds Neurological: Absent: focal weakness, frequent falls, memory loss Hematologic/Lymphatic: Present: as per HPI Oncology - Exam - Constitutional Vitals: Temp Pulse Resp BP Pulse Ox 97.8 F 76 18 165/75 93 11/01/17 11:26 11/01/17 11:26 11/01/17 11:26 11/01/17 11:26 11/01/17 11:26 General appearance: cooperative, no acute distress, obese, no febrile Exam: chronically ill appearing - Head Head exam: Present: atraumatic - ENT ENT exam: Present: mucous membranes moist, normal exam - Respiratory Respiratory exam: Present: decreased breath sounds, CTAB - Cardiovascular Cardiovascular exam: Present: systolic murmur - GI/Abdominal GI/Abdominal exam: Present: distended, normal bowel sounds, soft. Absent: tenderness Additional comments: s/p paracentesis - Extremities Exam Extremities exam: Present: pedal edema. Absent: calf tenderness Additional comments: +1 BLE edema - Neurological Exam Neurological exam: Present: alert, oriented X3, no focal deficits, strengths equal and symetr throughout - Psychiatric Psychiatric exam: Present: flat affect - Skin Skin exam: Present: dry, normal color, warm Oncology - Results Labs: Short CBC 11/01/17 Range/Units 04:47 WBC 2.0 L (4.3-11.1) K/mcL Hgb 8.7 L (11.5-15.4) g/dL Hct 26.0 L (35.3-44.9) % Plt Count 24 L* (140-400) K/mcL Neutrophils # 1.5 L (1.6-8.9) K/mcL [facility] 11/01/17 04:47 Sodium 139 Potassium 4.6 Chloride 113 H Carbon Dioxide 20 L BUN 62 H Creatinine 2.16 H Glucose 177 H Calcium 8.6
[2017-11-01] MEDS: Ondansetron 4 MG/2 ML VIAL IVP PRN (19:08)
[2017-11-01 19:34] LABS: Bilirubin,Urine Small (Negative); Blood,Urine Large (Negative); Color,Urine Dark Yellow (Yellow); Glucose,Urine (UA) Normal (Normal); Ketones,Urine Negative (Negative); Leukocyte Esterase,Urine Negative (Negative); Nitrite,Urine Negative (Negative); PH,Urine 5.5 pH Units (5.0-8.0); Protein,Urine >=300 mg/dL (Neg-Trace); Specific Gravity,Urine 1.024 (1.010-1.025); Urobilinogen,Urine Normal (Normal)
[2017-11-01 20:00] LABS: Clarity,Urine Hazy (Clear); Squamous Epithelial Cell,Urine Many per lpf (None-Few); WBC,Urine 0-3 per hpf (0-3)
--- NOTE | 2017-11-01 20:08 | Internal Med Progress Note ---
Date of Encounter: 11/01/17 Time of Encounter: 16:06 - Assessment and plan (1) Cirrhosis of liver with ascites Current Visit: Yes Status: Acute Assessment and plan: 72-year-old female with diabetes, hypertension and liver cirrhosis 2/2 to HENRIQUEZ presenting with SOB and abdominal ascites. No fever, abdominal pain or tenderness or Altered mental status on exam. Child-Shaffer Classification Score: 9 (AO x 3, Ascites, Luis < 2 mg/dL, Albumin < 2.8, INR < 1.7). Dietary education, 2 g per day sodium restricted diet Status post paracentesis 11/01 - 4 L fluid removal. Patient feeling better - GI consulted, recommendations appreciated. Noted that she may require TIPS procedure if this is recurrent issue. She also needs regular monitoring varicies surveillance. Qualifiers: Hepatic cirrhosis type: unspecified hepatic cirrhosis Qualified Code(s): K74.60 - Unspecified cirrhosis of liver (2) Acute kidney injury superimposed on chronic kidney disease Current Visit: Yes Status: Acute Assessment and plan: Nephrology consulted, recommendations appreciated. Creatinine fairly unchanged from yesterday, slightly worse at 2.16 Patient had difficulty voiding today but nursing reports she was nervous and we will reassess urine output at a later time. (3) Hepatorenal syndrome Current Visit: Yes Status: Acute Assessment and plan: Plan as above (4) Fall Current Visit: Yes Status: Acute Assessment and plan: PT.OT CT head negative Fall precautions Qualifiers: Encounter type: initial encounter Qualified Code(s): W19.XXXA - Unspecified fall, initial encounter (5) Hypersplenism Current Visit: Yes Status: Acute (6) Hypertension Current Visit: Yes Status: Acute Assessment and plan: SBP on admit in 170s. Hydralazine PRN for elevated BP. Qualifiers: Hypertension type: essential hypertension Qualified Code(s): I10 - Essential (primary) hypertension (7) Depression Current Visit: Yes Status: Chronic Qualifiers: Depression Type: major depressive disorder Major depression recurrence: recurrent Active/Remission status: currently active Major depression episode severity: unspecified Qualified Code(s): F33.9 - Major depressive disorder, recurrent, unspecified (8) Active asthma Current Visit: No Status: Chronic (9) Diabetes mellitus type 2 in obese Current Visit: No Status: Chronic Assessment and plan: Insulin sliding scale, adjust as needed. Acchuchecks q6h. Initiate Hypoglycemia protocol, as needed. (10) Thrombocytopenia Current Visit: No Status: Chronic Assessment and plan: improved today Hematology/Oncology consulted, recommendations appreciated. (11) Gastric varices without bleeding Current Visit: Yes Status: Acute (12) Pleural effusion, left Current Visit: Yes Status: Acute Assessment and plan: Moderate size as seen on CT chest Patient had paracentesis 11/01 removed 4 L ascitic fluid from abdomen Monitor respiratory status and I/Os, Will need to decide if patient needs thoracentesis. Diuresis limited due to renal function (13) Pancytopenia Current Visit: Yes Status: Acute Assessment and plan: Likely from HENRIQUEZ liver cirrhosis. Hematology/Oncology consulted and recommendations appreciated. (14) DVT prophylaxis Current Visit: No Status: Acute Assessment and plan: Mechanical prophylaxis Pt thrombocytopenic - Subjective Interval history: Patient had paracentesis done today, 4 L fluid removed, states she is feeling better. - Constitutional Vitals: Temp Pulse Resp BP Pulse Ox 97.8 F 76 18 165/75 93 11/01/17 11:26 11/01/17 11:26 11/01/17 11:26 11/01/17 11:26 11/01/17 11:26 General appearance: Present: cooperative, A&O X 3, no acute distress, answers questions appropriately - Head Head exam: Present: atraumatic, normocephalic - Eye Eye exam: Present: PERRL, conjuntiva pink, sclera anicteric Pupils: Present: PERRL - Neck Neck exam general surgery: Present: supple, trachea midline. Absent: lymphadenopathy - Respiratory Respiratory exam: Present: decreased breath sounds. Absent: accessory muscle use, wheezes - Cardiovascular Cardiovascular exam: Present: RRR, +S1, +S2. Absent: diastolic murmur, gallop, rubs, systolic murmur - GI/Abdominal GI/Abdominal exam: Present: distended, normal bowel sounds, soft, no peritoneal signs. Absent: firm, guarding, hernia, mass, rebound, rigid, tenderness - Extremities Exam Extremities exam: Present: warm, radial pulses palpable and symmetrical. Absent : calf tenderness, cyanotic, pedal edema - Neurological Exam Neurological exam: Present: CN II-XII intact, oriented X3, no focal deficits. Absent: pronater drift, facial droop, speech deficit - Skin Skin exam: Present: dry, intact Internal Medicine: Result - Labs CBC & Chem 7: 11/01/17 04:47 11/01/17 04:47 Labs: Short CBC 11/01/17 Range/Units 04:47 WBC 2.0 L (4.3-11.1) K/mcL Hgb 8.7 L (11.5-15.4) g/dL Hct 26.0 L (35.3-44.9) % Plt Count 24 L* (140-400) K/mcL Neutrophils # 1.5 L (1.6-8.9) K/mcL BMP 11/01/17 04:47 Sodium 139 Potassium 4.6 Chloride 113 H Carbon Dioxide 20 L BUN 62 H Creatinine 2.16 H Glucose 177 H Calcium 8.6 Urine 11/01/17 Range/Units 19:22 Urine Color Dark Yellow (Yellow) Urine Clarity Hazy A (Clear) Urine pH 5.5 (5.0-8.0) pH Units Ur Specific [place] 1.024 (1.010-1.025) Urine Protein >=300 H (Neg-Trace) mg/dL Urine Glucose (UA) Normal (Normal) mg/dL - ABG Interpretation ABG results: PT/INR, D-dimer PT 16.6 Seconds (9.4-12.1) H 11/01/17 04:47 - Impressions Impressions Abdomen/Pelvis CT 10/31/17 17:00 IMPRESSION: 1. Moderate-sized left pleural effusion with adjacent dependent left lung atelectasis. 2. Coronary artery disease. 3. Hepatic cirrhosis with morphologic features of portal hypertension as evidenced by large volume ascites, splenomegaly, and upper abdominal varices. 4. Cholelithiasis. D/ / 10/31/2017 17:48:55 Violeta Hernandez MD / deneen Interpreting Provider: Violeta Hernandez MD Chest CT 10/31/17 17:00 IMPRESSION: 1. Moderate-sized left pleural effusion with adjacent dependent left lung atelectasis. 2. Coronary artery disease. 3. Hepatic cirrhosis with morphologic features of portal hypertension as evidenced by large volume ascites, splenomegaly, and upper abdominal varices. 4. Cholelithiasis. D/ / 10/31/2017 17:48:55 Violeta Hernandez MD / deneen Interpreting Provider: Violeta Hernandez MD Paracentesis Ultrasound 11/01/17 00:00 IMPRESSION: Successful ultrasound guided paracentesis. D/ / Francois Villeda MD / Francois Villeda MD Interpreting Provider: Francois Villeda MD Consult Discharge Plan - Plan Referrals: Rashawn Michaels MD [Non-Partnered Physician] - 11/07/17 2:30 pm
[2017-11-01 20:13] LABS: RBC,Urine 30-50 per hpf (0-3)
[2017-11-01 20:14] LABS: Bacteria,Urine Moderate per hpf (None-Few); Hyaline Casts,Urine Few per lpf (None-Few)
[2017-11-01] MEDS: Insulin DETEMIR 100 UNIT/ML X5UNITS SQ SCH (21:32)
[2017-11-02] MEDS: Insulin LISPRO 300 UNITS/3 ML VIAL SQ SCH ×5 (02:29→21:41)
[2017-11-02] MEDS: hydrALAZINE 10 MG TABLET PO PRN (04:14)
[2017-11-02 05:31] LABS: Hemoglobin 9.3 g/dL (11.5-15.4); Immature Granulocytes % 0.3 % (0-4); Mean Corpuscular HGB Conc 32.1 g/dL (31.6-35.5); Segmented Neutrophils % 78.6 %
[2017-11-02 05:34] LABS: Basophils % 0.3 %; Eosinophils % 1.3 %; Immature Platelets 3.1 % (1.1-6.1); Lymphocytes # 0.4 K/mcL (0.6-4.6); Lymphocytes % 13.2 %; Mean Corpuscular Volume 99.7 fL (83.0-100.0); Mean Platelet Volume 11.4 fL (9.4-12.4); Monocytes # 0.2 K/mcL (0.0-1.3); Monocytes % 6.3 %; Neutrophils # 2.4 K/mcL (1.6-8.9); Red Blood Count 2.91 M/mcL (3.82-4.97); Red Cell Distribution Width 16.7 % (11.5-14.5)
[2017-11-02 05:36] LABS: Platelet Count 26 K/mcL (140-400)
[2017-11-02 05:38] LABS: INR 1.4; Prothrombin Time 15.5 Seconds (9.4-12.1)
[2017-11-02 06:17] LABS: Platelet Estimate Marked Decrease (Normal)
[2017-11-02 06:42] LABS: Calcium 8.6 mg/dL (8.6-10.3); Potassium 4.6 mEq/L (3.5-5.1)
[2017-11-02] MEDS: Budesonide/Formoterol 160/4.5 MDI IH SCH ×2 (08:01→20:12)
--- NOTE | 2017-11-02 08:01 | Urology - Consult Note ---
Date of Encounter: 11/02/17 Time of Encounter: 08:01 - Assessment and Plan (1) Incomplete bladder emptying Current Visit: Yes Status: Acute Assessment and plan: the pt appears to have elevated post void residuals of ~450 based on amount returned after cath placement. unsure how much this is contributing to her renal insufficiency. secondary to her acute illness I recommend leaving indwelling cath in place for now. this will allow for decompression of the bladder and may help resolve this issue. it is not uncommon to have bladder dysfunction with multiple comorbidities. OK to remove cath as pt gets closer to discharge. no new meds needed. Urology CN:HPI Consult date: 11/02/17 Reason for consult Urology: Other History of present illness: new pt to [facility]. Ms. Shaffer is a 72 year old female with past medical history significant for non-alcoholic cirrhosis, asthma, diabetes, and hypertension presented to [facility] on 10/30/2017 with report of SOB x 1 month, with acute progression of SOB over last week and abd fullness. cath placed at this hospitalization with evidence of incomplete emptying. nursing notes show cath was placed 11/01 with return of 450cc. pt reports significant hesitency over last few months. denies hx of retention. no previous urology evaluation. ct scan showed no hydronephrosis or obstructive causes of the renal insufficiency Past Med Surg Social Fam HX - Past Medical History Medical history: asthma, cirrhosis, diabetes, hypertension, other Psychiatric history: no psych history - Past Surgical History Surgical History: hysterectomy, orthopedic, other - Social History Smoking Status: Never smoker Smokeless Tobacco Status: No Alcohol use: none Drug use: none - Family History Mother Living Status: Hx Family Neuromuscular Disorders: Yes (Stroke) Father Adopted: No Family Member Ethnicity: Non- Living Status: Hx Family Cardiac Disorders: Yes Hx Family Respiratory Disorders: No Hx Family Cancer: Yes Hx Family GI Disorders: No Hx Family Endocrine Disorder: Yes Hx Family Neuromuscular Disorders: No Hx Family Neurologic Disorders: No Hx Family HEENT Disorders: No Hx Family Autoimmune Disorders: No Medications and Allergies Acetaminophen [Tylenol] 650 mg PO Q6HR PRN #0 tablet 06/18/15 [Rx] Cholecalciferol (D-3) 5,000 unit PO BID 30 Days tablet 06/18/15 [Rx] Glimepiride [Amaryl] 4 mg PO DAILY tablet 06/18/15 [Rx] Allopurinol [Zyloprim 100 MG] 200 mg PO DAILY 08/06/17 [History] Atorvastatin [Lipitor] 10 mg PO HS 08/06/17 [History] Citalopram Hydrobromide [Citalopram HBr] 40 mg PO DAILY 08/06/17 [History] Cyanocobalamin (B-12) [Vitamin B12] 1,000 mcg IM QMONTH 08/06/17 [History] Folic Acid 1 mg PO DAILY 08/06/17 [History] Spironolactone [Aldactone] 100 mg PO DAILY 08/06/17 [History] Furosemide [Lasix] 20 mg PO QAM 10/31/17 [History] Insulin ASPART [Novolog] 12 unit SQ QPM 10/31/17 [History] Insulin ASPART [Novolog] 22 unit SQ QAM 10/31/17 [History] 3 Allergy/AdvReac Type Severity Reaction Status Date / Time No Known Drug Allergies Allergy See Verified 10/31/17 08:46 Comments Review of Systems - Constitutional fatigue, weakness, no fever(s) - EENT Nose, mouth and throat: dizziness - Cardiovascular no chest pain - Gastrointestinal abdominal pain - Genitourinary Genitourinary: difficulty voiding - Musculoskeletal back pain - Integumentary no erythema - Neurological confusion, weakness - Psychiatric no anxiety - Hematologic/Lymphatic easy bleeding - Allergic/Immunologic no throat swelling Exam Initial Vital Signs Temp Pulse Resp BP Pulse Ox 98.1 F 71 15 177/80 96 10/30/17 20:35 10/30/17 20:35 10/30/17 20:35 10/30/17 20:35 10/30/17 20:35 - General physical appearance Present: well developed, no distress - Eyes Present: PERRL, conjunctiva is clear - ENT Present: normal nares, no hearing loss - Neck Present: no masses, no lymphadenopathy - Respiratory Present: normal respiratory effort - Cardiovascular Cardiovascular exam IM: RRR - Abdomen Abdomen: Present: soft, distended, suprapubic tenderness - Integumentary Absent: no abnormal pigmentation - Neurologic Absent: disoriented - Additional Findings cuello cath with dark "tea" colored urine. minimal debris Urology Results - Labs 11/02/17 04:32 11/02/17 04:32 Abnormal lab results WBC 3.0 K/mcL (4.3-11.1) L 11/02/17 04:32 RBC 2.91 M/mcL (3.82-4.97) L 11/02/17 04:32 Hgb 9.3 g/dL (11.5-15.4) L 11/02/17 04:32 Hct 29.0 % (35.3-44.9) L 11/02/17 04:32 RDW 16.7 % (11.5-14.5) H 11/02/17 04:32 Plt Count 26 K/mcL (140-400) L* 11/02/17 04:32 Lymphocytes # 0.4 K/mcL (0.6-4.6) L 11/02/17 04:32 Nucleated RBCs/100 WBC 1.0 /100 WBC (0) H 11/02/17 04:32 Platelet Estimate Marked Decrease (Normal) L 11/02/17 04:32 Hypochromasia Present (Not Present) A 11/01/17 04:47 Anisocytosis 1+ (Not Present) A 11/01/17 04:47 Percent Retic 3.6 % (1.6-2.8) H 11/01/17 04:47 Retic Hgb Equivalent 36.9 pg (28.61-36.33) H 11/01/17 04:47 PT 15.5 Seconds (9.4-12.1) H 11/02/17 04:32 Chloride 111 mEq/L (98-107) H 11/02/17 04:32 Carbon Dioxide 18 mEq/L (23-29) L 11/02/17 04:32 BUN 65 mg/dL (8-23) H 11/02/17 04:32 Creatinine 2.12 mg/dL (0.60-1.20) H 11/02/17 04:32 Est GFR ( Amer) 28 (> 60) L 11/02/17 04:32 Est GFR (Non-Af Amer) 23 (> 60) L 11/02/17 04:32 BUN/Creatinine Ratio 31 (6-26) H 11/02/17 04:32 Glucose 156 mg/dL (70-105) H 11/02/17 04:32 POC Glucose 152 mg/dL (58-89) H 11/01/17 20:58 Serum Osmolality 311 mOsm/kg (280-300) H 10/31/17 05:29 Calculated Osmolality 310 (280-300) H 11/02/17 04:32 Phosphorus 4.7 mg/dL (2.7-4.5) H 11/01/17 04:47 Transferrin 192 mg/dL (203-362) L 11/01/17 04:47 Total Bilirubin 2.2 mg/dL (0.3-1.0) H 10/31/17 05:29 Serum Total Protein 6.2 g/dL (6.4-8.9) L 10/31/17 05:29 Albumin 2.8 g/dL (3.5-5.7) L 10/31/17 05:29 Albumin/Globulin Ratio 0.8 (1.1-2.2) L 10/31/17 05:29 Vitamin B12 1163 pg/mL (250-1100) H 11/01/17 04:47 25-OH Vitamin D Total 24 ng/mL (30-80) L 11/01/17 04:47 Folate > 22.3 ng/mL (3.0-16.0) H 11/01/17 04:47 Urine Clarity Hazy (Clear) A 11/01/17 19:22 Urine Protein >=300 mg/dL (Neg-Trace) H 11/01/17 19:22 Urine Blood Large (Negative) H 11/01/17 19:22 Urine Bilirubin Small (Negative) H 11/01/17 19:22 Urine Microscopic RBC 30-50 per hpf (0-3) H 11/01/17 19:22 Ur Squamous Epith Cells Many per lpf (None-Few) H 11/01/17 19:22 Urine Bacteria Moderate per hpf (None-Few) H 11/01/17 19:22 Protein/Creatinin Ratio 0.78 mg/mg (0.00-0.20) H 10/31/17 05:45 Urine Total Protein 76 mg/dL (1-14) H 10/31/17 05:45 Diabetes panel 11/01/17 11/02/17 Range/Units 04:47 04:32 Sodium 139 139 (136-145) mEq/L Potassium 4.6 4.6 (3.5-5.1) mEq/L Chloride 113 H 111 H (98-107) mEq/L Carbon Dioxide 20 L 18 L (23-29) mEq/L BUN 62 H 65 H (8-23) mg/dL Creatinine 2.16 H 2.12 H (0.60-1.20) mg/dL Glucose 177 H 156 H (70-105) mg/dL Calcium 8.6 8.6 (8.6-10.3) mg/dL Calcium panel 11/01/17 11/01/17 11/02/17 Range/Units 04:47 04:47 04:32 Calcium 8.6 8.6 (8.6-10.3) mg/dL 25-OH Vitamin D Total 24 L (30-80) ng/mL Pituitary panel 11/01/17 11/02/17 Range/Units 04:47 04:32 Sodium 139 139 (136-145) mEq/L Potassium 4.6 4.6 (3.5-5.1) mEq/L Chloride 113 H 111 H (98-107) mEq/L Carbon Dioxide 20 L 18 L (23-29) mEq/L BUN 62 H 65 H (8-23) mg/dL Creatinine 2.16 H 2.12 H (0.60-1.20) mg/dL Glucose 177 H 156 H (70-105) mg/dL Calcium 8.6 8.6 (8.6-10.3) mg/dL Adrenal panel 11/01/17 11/02/17 Range/Units 04:47 04:32 Sodium 139 139 (136-145) mEq/L Potassium 4.6 4.6 (3.5-5.1) mEq/L Chloride 113 H 111 H (98-107) mEq/L Carbon Dioxide 20 L 18 L (23-29) mEq/L BUN 62 H 65 H (8-23) mg/dL Creatinine 2.16 H 2.12 H (0.60-1.20) mg/dL Glucose 177 H 156 H (70-105) mg/dL Calcium 8.6 8.6 (8.6-10.3) mg/dL All other labs normal. Consult Discharge Plan - Plan Referrals: Rashawn Michaels MD [Non-Partnered Physician] - 11/07/17 2:30 pm
[2017-11-02] MEDS: amLODIPine 5 MG TABLET PO SCH (09:22)
[2017-11-02] MEDS: Octreotide 50 MCG/ML SYRINGE IVP SCH ×2 (09:22→17:18)
[2017-11-02] MEDS: Ondansetron 4 MG/2 ML VIAL IVP PRN (09:35)
--- NOTE | 2017-11-02 12:37 | Internal Med Progress Note ---
Date of Encounter: 11/02/17 Time of Encounter: 12:30 - Assessment and plan (1) Cirrhosis of liver with ascites Current Visit: Yes Status: Acute Assessment and plan: 72-year-old female with diabetes, hypertension and liver cirrhosis 2/2 to HENRIQUEZ presenting with SOB and abdominal ascites. No fever, abdominal pain or tenderness or Altered mental status on exam. Child-Shaffer Classification Score: 9 (AO x 3, Ascites, Luis < 2 mg/dL, Albumin < 2.8, INR < 1.7). Dietary education, 2 g per day sodium restricted diet Status post paracentesis 11/01 - 4 L fluid removal. Patient feeling better - GI consulted, recommendations appreciated. Noted that she may require TIPS procedure if this is recurrent issue. She also needs regular monitoring varicies surveillance. Qualifiers: Hepatic cirrhosis type: unspecified hepatic cirrhosis Qualified Code(s): K74.60 - Unspecified cirrhosis of liver (2) Pleural effusion, left Current Visit: Yes Status: Acute Assessment and plan: Moderate size as seen on CT chest Patient had paracentesis 11/01 removed 4 L ascitic fluid from abdomen Monitor respiratory status and I/Os, Will need to decide if patient needs thoracentesis. Diuresis limited due to renal function (3) Acute respiratory failure with hypoxia Current Visit: No Status: Acute Assessment and plan: Patient still requiring oxygen, with some mild respiratory distress Paracentesis did not relieve symptoms and patient still depending on O2 Possibly left pleural effusion contributing to this Will consult IR for thoracentesis (4) Acute kidney injury superimposed on chronic kidney disease Current Visit: Yes Status: Acute Assessment and plan: Nephrology consulted, recommendations appreciated. (5) Hepatorenal syndrome Current Visit: Yes Status: Acute (6) Fall Current Visit: Yes Status: Acute Assessment and plan: PT.OT CT head negative Fall precautions Qualifiers: Encounter type: initial encounter Qualified Code(s): W19.XXXA - Unspecified fall, initial encounter (7) Hypersplenism Current Visit: Yes Status: Acute (8) Hypertension Current Visit: Yes Status: Acute Assessment and plan: SBP on admit in 170s. Hydralazine PRN for elevated BP. Qualifiers: Hypertension type: essential hypertension Qualified Code(s): I10 - Essential (primary) hypertension (9) Depression Current Visit: Yes Status: Chronic Qualifiers: Depression Type: major depressive disorder Major depression recurrence: recurrent Active/Remission status: currently active Major depression episode severity: unspecified Qualified Code(s): F33.9 - Major depressive disorder, recurrent, unspecified (10) Active asthma Current Visit: No Status: Chronic (11) Diabetes mellitus type 2 in obese Current Visit: No Status: Chronic Assessment and plan: Diabetic/renal diet Levemir 14 units HS ISS (12) Thrombocytopenia Current Visit: No Status: Chronic Assessment and plan: improved today Hematology/Oncology consulted, recommendations appreciated. (13) Gastric varices without bleeding Current Visit: Yes Status: Acute (14) Pancytopenia Current Visit: Yes Status: Acute Assessment and plan: Likely from HENRIQUEZ liver cirrhosis. Hematology/Oncology consulted and recommendations appreciated. (15) DVT prophylaxis Current Visit: No Status: Acute Assessment and plan: Mechanical prophylaxis Pt thrombocytopenic - Subjective Interval history: 11/01: paracentesis done, 4 L fluid removed, abdominal distension feels better 11/02: Doing well but still having difficulty breathing. - Constitutional Vitals: Temp Pulse Resp BP Pulse Ox 98.3 F 74 16 158/65 90 11/02/17 10:53 11/02/17 10:53 11/02/17 10:53 11/02/17 10:53 11/02/17 10:53 General appearance: Present: cooperative, A&O X 3, no acute distress, answers questions appropriately Exam: - Head Head exam: Present: atraumatic, normocephalic - Eye Eye exam: Present: PERRL, conjuntiva pink, sclera anicteric Pupils: Present: PERRL - Neck Neck exam general surgery: Present: supple, trachea midline. Absent: lymphadenopathy - Respiratory Respiratory exam: Present: decreased breath sounds. Absent: accessory muscle use, wheezes - Cardiovascular Cardiovascular exam: Present: RRR, +S1, +S2. Absent: diastolic murmur, gallop, rubs, systolic murmur - GI/Abdominal GI/Abdominal exam: Present: distended, normal bowel sounds, soft, no peritoneal signs. Absent: firm, guarding, hernia, mass, rebound, rigid, tenderness - Extremities Exam Extremities exam: Present: warm, radial pulses palpable and symmetrical. Absent : calf tenderness, cyanotic, pedal edema - Neurological Exam Neurological exam: Present: CN II-XII intact, oriented X3, no focal deficits. Absent: pronater drift, facial droop, speech deficit - Skin Skin exam: Present: dry, intact Internal Medicine: Result - Labs CBC & Chem 7: 11/02/17 04:32 11/02/17 04:32 Labs: Short CBC 11/01/17 11/02/17 Range/Units 04:47 04:32 WBC 2.0 L 3.0 L (4.3-11.1) K/mcL Hgb 8.7 L 9.3 L (11.5-15.4) g/dL Hct 26.0 L 29.0 L (35.3-44.9) % Plt Count 24 L* 26 L* (140-400) K/mcL Neutrophils # 1.5 L 2.4 (1.6-8.9) K/mcL BMP 11/01/17 11/02/17 04:47 04:32 Sodium 139 139 Potassium 4.6 4.6 Chloride 113 H 111 H Carbon Dioxide 20 L 18 L BUN 62 H 65 H Creatinine 2.16 H 2.12 H Glucose 177 H 156 H Calcium 8.6 8.6 Urine 11/01/17 Range/Units 19:22 Urine Color Dark Yellow (Yellow) Urine Clarity Hazy A (Clear) Urine pH 5.5 (5.0-8.0) pH Units Ur Specific [place] 1.024 (1.010-1.025) Urine Protein >=300 H (Neg-Trace) mg/dL Urine Glucose (UA) Normal (Normal) mg/dL - ABG Interpretation ABG results: PT/INR, D-dimer PT 15.5 Seconds (9.4-12.1) H 11/02/17 04:32 - Impressions Impressions Paracentesis Ultrasound 11/01/17 00:00 IMPRESSION: Successful ultrasound guided paracentesis. D/ / Francois Villeda MD / Francois Villeda MD Interpreting Provider: Francois Villeda MD Echocardiogram 11/01/17 12:23 Impressions: LVEF 60-65%. Normal LV chamber size, wall thickness and function. Moderate left ventricular diastolic dysfunction. Normal right ventricular structure and function. Mild aortic stenosis. Mean gradient 13 mmHg. Mild-moderate pulmonary hypertension. Estimated RVSP is 45 mmHg. Left Ventricular Wall Motion: Rest Echo Findings All wall segments showed normal motion. Findings: Study Quality * Technically adequate exam. ECG Findings * Normal sinus rhythm. Left Ventricle * LVEF 60-65%. * Normal LV chamber size, wall thickness and function. * Moderate left ventricular diastolic dysfunction. Right Ventricle * Normal right ventricular structure and function. Left Atrium * Moderately dilated left atrium. Right Atrium * Mildly dilated right atrium. Interatrial Septum * Interatrial septum not well evaluated. Aortic Valve * Trileaflet aortic valve. * Mildly calcified aortic valve leaflets. * No aortic regurgitation. * Mild aortic stenosis. Mean gradient 13 mmHg. Mitral Valve * Mild mitral annular calcification * Trace mitral regurgitation. * No mitral stenosis. Tricuspid Valve * Normal tricuspid valve structure and function. * Trace tricuspid regurgitation. * Mild-moderate pulmonary hypertension. * Estimated RVSP is 45 mmHg. * Estimated RA pressure is 5 mmHg. Pulmonic Valve * Normal pulmonic valve structure and function. * No pulmonic regurgitation. Aorta * Normally sized aortic root. Pericardium * The pericardium appears normal. IVC * Normal IVC dimensions and inspiratory collapse. Pulmonary Artery * Normal visualized portions of the main pulmonary artery. Consult Discharge Plan - Plan Referrals: Rashawn Michaels MD [Non-Partnered Physician] - 11/07/17 2:30 pm
--- NOTE | 2017-11-02 13:48 | Nephrology Progress Note ---
<Obdulio Dotson - Last Filed: 11/02/17 13:46> Date of Encounter: 11/02/17 Time of Encounter: 13:46 - Assessment and Plan (1) Acute kidney injury Status: Acute Patient denies hx of CKD. on chart review, Cr baseline is ~1. On admission Cr 2.03 and BUN 62. Patient Cr appears stable at ~2 GFR in the past has been 44- 60, most likely has CKD. Will need further outpatient nephro workup once discharged. ANTONIO is most likely due to prerenal Azotemia in the setting of cirrhosis/ascites. patient has pancytopenia, most likely in the setting of cirrhosis. Patient has protein in urine, if kidney function recovers patient may consider ACEI/ARB. - encourage oral fluid intake; communicated to nurse to bring water jug to patient. - will closely monitor Cr - renal diet - avoid nephrotoxins - renal dosing - strict I/O (2) Cirrhosis of liver with ascites Status: Acute per primary team Qualifiers: Hepatic cirrhosis type: unspecified hepatic cirrhosis Qualified Code(s): K74.60 - Unspecified cirrhosis of liver (3) Heart murmur Status: Acute on exam, patient has 2/5 systolic heart murmur on 2nd L IC, and 1+ bilateral pitting edema. Patient reports recently feeling SOB. Patient has no hx of heart disease, but concerned for possible CHF. - echo LVEF read as 60-65% Subjective Principal diagnosis: antonio on ckd Interval history: Ms Shaffer is a 72 yo F w/ pmh of cirrhosis, asthma, diabetes, HTN presents with ANTONIO. Nephrology is consulted for ANTONIO. Patient is seen and examined. Patient denies hx of CKD. Patient has no new complaints. Patient denies cp, sob, n/v, abdominal pain, f/c. Yesterday afternoon, and evening floor nurse reported patient had retained post- void urine. Patient reports that she had trouble urinating when someone was watching over her. Catheter was eventually placed. Objective - Vital Signs Vital signs: Vital Signs Temp Pulse Resp BP Pulse Ox 11/02/17 10:53 98.3 F 74 16 158/65 90 11/02/17 06:32 98.4 F 78 15 133/68 90 11/02/17 03:59 98.4 F 76 15 171/65 91 11/01/17 21:02 98.1 F 72 18 176/67 92 11/01/17 20:59 20 90 Intake and Output 11/01/17 11/02/17 11/02/17 23:59 07:59 15:59 Intake Total 20 / 20 0 / 0 240 / 240 Output Total 450 / 450 0 / 0 Balance -430 / -430 0 / 0 240 / 240 Intake: Oral 20 / 20 0 / 0 240 / 240 Output: Urine 0 / 0 Catheter 450 / 450 Other: Meal Breakfast Percent of Meal Consumed 50% Stool Size Small Stool Consistency formed Stool Color Brown Weight 99.4 kg Blood Glucose* 152 168 238 Patient Weight 11/02/17 23:59 Weight 99.4 kg - General Appearance General appearance: Present: appears started age, obese EENT: Present: mucous membranes moist Neck: Present: supple Respiratory: Present: clear Cardiology: Present: no murmurs, no rub, no gallops, regular rate, regular rhythm, normal S1, normal S2 Gastrointestinal: Present: normoactive bowel sounds Integumentary: Present: warm and dry Neurologic: Present: alert and oriented x3 Psychiatric: Present: mood/affect appropriate, cooperative - Lab 11/02/17 04:32 11/02/17 04:32 Most recent lab results Calcium 8.6 mg/dL (8.6-10.3) 11/02/17 04:32 Phosphorus 4.7 mg/dL (2.7-4.5) H 11/01/17 04:47 Magnesium 2.1 mg/dL (1.6-2.6) 11/01/17 04:47 Urine Creatinine 98 mg/dL 10/31/17 05:45 Urine Sodium 40.0 mEq/L 10/31/17 05:45 Urine Total Protein 76 mg/dL (1-14) H 10/31/17 05:45 Consult Discharge Plan - Plan Instructions: Cirrhosis (GEN), Ascites (GEN) Referrals: Rashawn Micheals MD [Non-Partnered Physician] - 12/05/17 3:00 pm (Please follow up a sschedule...) Ramon Valderrama DO [Partnered Physician] - Hero Ramirez MD [Partnered Physician] - Prescriptions: amLODIPine [Norvasc] 5 mg PO DAILY 5 Days #5 tablet Budesonide/Formoterol 160/4.5 [Symbicort 160/4.5] 2 puff IH BIDR #1 inhaler Propranolol [Inderal] 20 mg PO BID #10 tablet <Aniya Robb Tiff - Last Filed: 12/04/17 18:14> Date of Encounter: 11/02/17 - Assessment and Plan (1) Acute kidney injury superimposed on chronic kidney disease Status: Acute (2) Cirrhosis of liver with ascites Status: Acute Qualifiers: Hepatic cirrhosis type: unspecified hepatic cirrhosis Qualified Code(s): K74.60 - Unspecified cirrhosis of liver (3) Pancytopenia Status: Acute Objective - Lab 11/26/17 04:00 11/26/17 04:00 Most recent lab results Calcium 9.1 mg/dL (8.6-10.3) 11/26/17 04:00 Phosphorus 4.4 mg/dL (2.7-4.5) 11/20/17 12:44 Magnesium 1.9 mg/dL (1.6-2.6) 11/24/17 03:53 Urine Creatinine 98 mg/dL 10/31/17 05:45 Urine Sodium 26.3 mEq/L 11/03/17 16:08 Urine Total Protein 76 mg/dL (1-14) H 10/31/17 05:45 - Attending Attestation I examined this patient and my medical decision-making was reviewed with the Resident Physician. I agree with the documented findings, disposition and treatment plan as described except to the extent set forth below. Pt seen and examined with interim events noted. Elevated SCr in the setting of liver cirrhosis with ascites complicated by urinary retention yesterday with cuello placed. SCr at a plateau at 2.12, GFR 23. UOP improved. Continue po fluids and avoid nephrotoxins
[2017-11-02] MEDS: Insulin DETEMIR 100 UNIT/ML X5UNITS SQ SCH (21:41)
[2017-11-03] MEDS: Octreotide 50 MCG/ML SYRINGE IVP SCH ×4 (00:54→23:54)
[2017-11-03 04:12] LABS: Basophils % 0.4 %; Mean Platelet Volume 11.2 fL (9.4-12.4)
[2017-11-03 04:18] LABS: INR 1.4; Prothrombin Time 15.7 Seconds (9.4-12.1)
[2017-11-03 04:20] LABS: Eosinophils # 0.1 K/mcL (0.0-0.6); Eosinophils % 2.4 %; Hematocrit 26.1 % (35.3-44.9); Hemoglobin 8.6 g/dL (11.5-15.4); Immature Granulocytes % 0.4 % (0-4); Immature Platelets 4.6 % (1.1-6.1); Lymphocytes # 0.4 K/mcL (0.6-4.6); Mean Corpuscular Hemoglobin 32.1 pg (28.0-33.3); Mean Corpuscular Volume 97.4 fL (83.0-100.0); Monocytes # 0.2 K/mcL (0.0-1.3); Neutrophils # 1.9 K/mcL (1.6-8.9); Red Blood Count 2.68 M/mcL (3.82-4.97); Red Cell Distribution Width 16.6 % (11.5-14.5); Segmented Neutrophils % 74.8 %
[2017-11-03 04:26] LABS: Platelet Count 23 K/mcL (140-400)
[2017-11-03 04:30] LABS: Calcium 8.4 mg/dL (8.6-10.3); Potassium 4.4 mEq/L (3.5-5.1)
[2017-11-03] MEDS: Insulin LISPRO 300 UNITS/3 ML VIAL SQ SCH ×4 (08:05→22:09)
[2017-11-03] MEDS: amLODIPine 5 MG TABLET PO SCH (08:06)
[2017-11-03] MEDS: Budesonide/Formoterol 160/4.5 MDI IH SCH ×2 (08:07→21:29)
[2017-11-03 10:28] LABS: Complement Component 3 56 mg/dL (88-201); Complement Component 4 12 mg/dL (10-40)
[2017-11-03 10:40] LABS: ANA IgG by ELISA NONE DETECTED (None Detected)
--- NOTE | 2017-11-03 11:35 | Internal Med Progress Note ---
Date of Encounter: 11/03/17 Time of Encounter: 11:33 - Assessment and plan (1) Cirrhosis of liver with ascites Current Visit: Yes Status: Acute Assessment and plan: 72-year-old female with diabetes, hypertension and liver cirrhosis 2/2 to [facility]ENRIQUEZ presenting with SOB and abdominal ascites. No fever, abdominal pain or tenderness or Altered mental status on exam. Child-Shaffer Classification Score: 9 (AO x 3, Ascites, Luis < 2 mg/dL, Albumin < 2.8, INR < 1.7). Dietary education, 2 g per day sodium restricted diet Status post paracentesis 11/01 - 4 L fluid removal. Patient distention feeling better but she is still short of breath - GI consulted, recommendations appreciated. Noted that she may require TIPS procedure if this is recurrent issue. She also needs regular monitoring varicies surveillance. Qualifiers: Hepatic cirrhosis type: unspecified hepatic cirrhosis Qualified Code(s): K74.60 - Unspecified cirrhosis of liver (2) Acute respiratory failure with hypoxia Current Visit: No Status: Acute Assessment and plan: Patient still requiring oxygen, with some mild respiratory distress Paracentesis did not relieve symptoms Possibly left pleural effusion contributing to this IR was unable to do thoracentesis on 11/02 because platelets <50k. Will give patient platelets Sunday/Sunday and consult IR for thoracentesis. Last time blood bank was out of platelets, will see by tomorrow if some are available. (3) Pleural effusion, left Current Visit: Yes Status: Acute Assessment and plan: Moderate size as seen on CT chest Patient had paracentesis 11/01 removed 4 L ascitic fluid from abdomen Monitor respiratory status and I/Os, Will need to decide if patient needs thoracentesis. Diuresis limited due to renal function (4) Acute kidney injury superimposed on chronic kidney disease Current Visit: Yes Status: Acute Assessment and plan: Nephrology consulted, recommendations appreciated. Kidney function worsened today (5) Hepatorenal syndrome Current Visit: Yes Status: Acute Assessment and plan: Plan as above (6) Fall Current Visit: Yes Status: Acute Assessment and plan: PT.OT CT head negative Fall precautions She does seem to be weak likely from deconditioning as she is not moving much and is bed bound from dyspnea and ascites Qualifiers: Encounter type: initial encounter Qualified Code(s): W19.XXXA - Unspecified fall, initial encounter (7) Hypersplenism Current Visit: Yes Status: Acute (8) Hypertension Current Visit: Yes Status: Acute Assessment and plan: SBP on admit in 170s. Hydralazine PRN for elevated BP. Qualifiers: Hypertension type: essential hypertension Qualified Code(s): I10 - Essential (primary) hypertension (9) Depression Current Visit: Yes Status: Chronic Qualifiers: Depression Type: major depressive disorder Major depression recurrence: recurrent Active/Remission status: currently active Major depression episode severity: unspecified Qualified Code(s): F33.9 - Major depressive disorder, recurrent, unspecified (10) Active asthma Current Visit: No Status: Chronic (11) Diabetes mellitus type 2 in obese Current Visit: No Status: Chronic Assessment and plan: Diabetic/renal diet Levemir 14 units HS ISS (12) Thrombocytopenia Current Visit: No Status: Chronic Assessment and plan: improved today Hematology/Oncology consulted, recommendations appreciated. (13) Gastric varices without bleeding Current Visit: Yes Status: Acute (14) Pancytopenia Current Visit: Yes Status: Acute Assessment and plan: Likely from HENRIQUEZ liver cirrhosis. Hematology/Oncology consulted and recommendations appreciated. (15) DVT prophylaxis Current Visit: No Status: Acute Assessment and plan: Mechanical prophylaxis Pt thrombocytopenic - Subjective Interval history: 11/01: paracentesis done, 4 L fluid removed, abdominal distension feels better 11/02: Doing well but still having difficulty breathing. 11/03: states she feels okay, states she is breathing better but at bedside i note her O2 saturation on continous pulse oxymetry drops to 87-88%. - Constitutional Vitals: Temp Pulse Resp BP Pulse Ox 98.1 F 69 15 120/55 93 11/03/17 11:13 11/03/17 11:13 11/03/17 11:13 11/03/17 11:13 11/03/17 11:13 General appearance: Present: cooperative, A&O X 3, no acute distress, answers questions appropriately Exam: No JVD Lungs: Breath sounds diminished at bases. No w/r/r appreciated but air movement is poor. Also limited by body habitus patient is unable to fully sit up CVS: RRR Abd: soft, distended but better than two days ago. Normoactive bowel sounds Ext: 1+ bipedal pitting edema Internal Medicine: Result - Labs CBC & Chem 7: 11/03/17 03:49 11/03/17 03:49 Labs: Short CBC 11/03/17 Range/Units 03:49 WBC 2.5 L (4.3-11.1) K/mcL Hgb 8.6 L (11.5-15.4) g/dL Hct 26.1 L (35.3-44.9) % Plt Count 23 L* (140-400) K/mcL Neutrophils # 1.9 (1.6-8.9) K/mcL BMP 11/03/17 03:49 Sodium 135 L Potassium 4.4 Chloride 107 Carbon Dioxide 19 L BUN 75 H Creatinine 2.81 H Glucose 158 H Calcium 8.4 L - ABG Interpretation ABG results: PT/INR, D-dimer PT 15.7 Seconds (9.4-12.1) H 11/03/17 03:49 - Impressions Impressions Echocardiogram 11/01/17 12:23 Impressions: LVEF 60-65%. Normal LV chamber size, wall thickness and function. Moderate left ventricular diastolic dysfunction. Normal right ventricular structure and function. Mild aortic stenosis. Mean gradient 13 mmHg. Mild-moderate pulmonary hypertension. Estimated RVSP is 45 mmHg. Left Ventricular Wall Motion: Rest Echo Findings All wall segments showed normal motion. Findings: Study Quality * Technically adequate exam. ECG Findings * Normal sinus rhythm. Left Ventricle * LVEF 60-65%. * Normal LV chamber size, wall thickness and function. * Moderate left ventricular diastolic dysfunction. Right Ventricle * Normal right ventricular structure and function. Left Atrium * Moderately dilated left atrium. Right Atrium * Mildly dilated right atrium. Interatrial Septum * Interatrial septum not well evaluated. Aortic Valve * Trileaflet aortic valve. * Mildly calcified aortic valve leaflets. * No aortic regurgitation. * Mild aortic stenosis. Mean gradient 13 mmHg. Mitral Valve * Mild mitral annular calcification * Trace mitral regurgitation. * No mitral stenosis. Tricuspid Valve * Normal tricuspid valve structure and function. * Trace tricuspid regurgitation. * Mild-moderate pulmonary hypertension. * Estimated RVSP is 45 mmHg. * Estimated RA pressure is 5 mmHg. Pulmonic Valve * Normal pulmonic valve structure and function. * No pulmonic regurgitation. Aorta * Normally sized aortic root. Pericardium * The pericardium appears normal. IVC * Normal IVC dimensions and inspiratory collapse. Pulmonary Artery * Normal visualized portions of the main pulmonary artery. Consult Discharge Plan - Plan Referrals: Rashawn Michaels MD [Non-Partnered Physician] - 11/07/17 2:30 pm
--- NOTE | 2017-11-03 13:27 | Nephrology Progress Note ---
Date of Encounter: 11/03/17 Time of Encounter: 15:00 - Assessment and Plan (1) Acute kidney injury superimposed on chronic kidney disease Status: Acute SCr worse today at 2.81, GFR 17 UOP not as impressive at 475cc in the past 24hrs previously 1050cc Continue to avoid nephrotxins if possible will discuss goals of care regarding liver dysfxn affecting kidney fxn, not sure how much urinary retention has contributing. Appreciate urology recs Will repeat urine sodium today (2) Cirrhosis of liver with ascites Status: Acute Per primary team Qualifiers: Hepatic cirrhosis type: unspecified hepatic cirrhosis Qualified Code(s): K74.60 - Unspecified cirrhosis of liver Subjective Principal diagnosis: howie on ckd Interval history: Pt seen and examined with no new complaints Objective - Vital Signs Vital signs: Vital Signs Temp Pulse Resp BP Pulse Ox 11/03/17 11:13 98.1 F 69 15 120/55 93 11/03/17 10:24 92 11/03/17 08:09 15 94 11/03/17 07:19 98.3 F 69 15 143/60 94 11/03/17 04:16 98.1 F 70 16 144/67 94 11/02/17 20:30 93 11/02/17 20:13 18 93 11/02/17 19:11 98.0 F 69 18 145/68 92 11/02/17 14:34 98.4 F 71 18 135/65 90 Intake and Output 11/02/17 11/03/17 11/03/17 23:59 07:59 15:59 Intake Total 120 / 120 120 / 120 360 / 360 Output Total 125 / 125 50 / 50 200 / 200 Balance -5 / -5 70 / 70 160 / 160 Intake: Oral 120 / 120 120 / 120 360 / 360 Output: Urine 125 / 125 Catheter 50 / 50 200 / 200 Other: Meal Dinner Breakfast Percent of Meal Consumed 100% 100% Stool Size Moderate Small Stool Consistency formed soft Stool Characteristics Normal for Patient Stool Color Brown Brown # Voids 0 # Bowel Movements 1 1 Weight 99.4 kg Blood Glucose* 270 153 198 Patient Weight 11/03/17 23:59 Weight 99.4 kg - General Appearance General appearance: Present: chronically ill EENT: Present: ATNC, mucous membranes moist Neck: Present: no JVD, supple Additional Comments: good areation ant bilat Cardiology: Present: edema, normal S1, normal S2 Gastrointestinal: Present: no tenderness, no guarding, obese Integumentary: Present: warm and dry Neurologic: Present: no focal deficit Musculoskeletal: Present: no deformities Psychiatric: Present: mood/affect appropriate - Lab 11/26/17 04:00 11/26/17 04:00 Most recent lab results Calcium 8.4 mg/dL (8.6-10.3) L 11/03/17 03:49 Phosphorus 4.7 mg/dL (2.7-4.5) H 11/01/17 04:47 Magnesium 2.1 mg/dL (1.6-2.6) 11/01/17 04:47 Urine Creatinine 98 mg/dL 10/31/17 05:45 Urine Sodium 40.0 mEq/L 10/31/17 05:45 Urine Total Protein 76 mg/dL (1-14) H 10/31/17 05:45 Consult Discharge Plan - Plan Instructions: Cirrhosis (GEN), Ascites (GEN) Referrals: Rashawn Michaels MD [Non-Partnered Physician] - 12/05/17 3:00 pm (Please follow up a sschedule...) Ramon Valderrama DO [Partnered Physician] - Hero Ramirez MD [Partnered Physician] - Prescriptions: amLODIPine [Norvasc] 5 mg PO DAILY 5 Days #5 tablet Budesonide/Formoterol 160/4.5 [Symbicort 160/4.5] 2 puff IH BIDR #1 inhaler Propranolol [Inderal] 20 mg PO BID #10 tablet
[2017-11-03 16:02] LABS: Alpha 2 Globulin (PEP) 0.44 g/dL (0.48-1.05)
[2017-11-03] MEDS: Ondansetron 4 MG/2 ML VIAL IVP PRN (18:23)
[2017-11-03] MEDS: Insulin DETEMIR 100 UNIT/ML X5UNITS SQ SCH (22:11)
[2017-11-04 03:12] LABS: Kappa Qnt Free Light Chains 19.3 mg/dL (0.33-1.94); Lambda Qnt Free Light Chains 10.6 mg/dL (0.57-2.63)
[2017-11-04] MEDS: Octreotide 50 MCG/ML SYRINGE IVP SCH ×2 (07:41→15:41)
[2017-11-04] MEDS: Insulin LISPRO 300 UNITS/3 ML VIAL SQ SCH ×4 (07:41→20:43)
[2017-11-04] MEDS: amLODIPine 5 MG TABLET PO SCH (07:42)
[2017-11-04] MEDS: Ondansetron 4 MG/2 ML VIAL IVP PRN ×2 (07:42→15:41)
[2017-11-04] MEDS: Budesonide/Formoterol 160/4.5 MDI IH SCH ×2 (08:02→21:10)
[2017-11-04 08:21] LABS: Eosinophils % 1.4 %
[2017-11-04 08:23] LABS: Basophils % 0.5 %; Hematocrit 26.2 % (35.3-44.9); Hemoglobin 8.7 g/dL (11.5-15.4); Immature Platelets 6.8 % (1.1-6.1); Lymphocytes # 0.3 K/mcL (0.6-4.6); Lymphocytes % 14.8 %; Mean Corpuscular HGB Conc 33.2 g/dL (31.6-35.5); Mean Corpuscular Hemoglobin 32.3 pg (28.0-33.3); Mean Corpuscular Volume 97.4 fL (83.0-100.0); Monocytes # 0.2 K/mcL (0.0-1.3); Monocytes % 8.8 %; Neutrophils # 1.6 K/mcL (1.6-8.9); Nucleated Red Blood Cells 2.3 /100 WBC (0); Red Blood Count 2.69 M/mcL (3.82-4.97); Red Cell Distribution Width 16.3 % (11.5-14.5); Segmented Neutrophils % 74.5 %
[2017-11-04 08:50] LABS: INR 1.5; Platelet Count 20 K/mcL (140-400); Prothrombin Time 16.5 Seconds (9.4-12.1)
[2017-11-04 08:56] LABS: Calcium 8.3 mg/dL (8.6-10.3); Potassium 4.4 mEq/L (3.5-5.1)
[2017-11-04 09:29] LABS: Platelet Estimate Marked Decrease (Normal)
--- NOTE | 2017-11-04 10:16 | Internal Med Progress Note ---
Date of Encounter: 11/04/17 Time of Encounter: 10:13 - Assessment and plan (1) Cirrhosis of liver with ascites Current Visit: Yes Status: Acute Assessment and plan: 72-year-old female with diabetes, hypertension and liver cirrhosis 2/2 to HENRIQUEZ presenting with SOB and abdominal ascites. No fever, abdominal pain or tenderness or Altered mental status on exam. Child-Shaffer Classification Score: 9 (AO x 3, Ascites, Luis < 2 mg/dL, Albumin < 2.8, INR < 1.7). Dietary education, 2 g per day sodium restricted diet Status post paracentesis 11/01 - 4 L fluid removal. Patient distention feeling better but she is still short of breath - GI consulted, recommendations appreciated. Noted that she may require TIPS procedure if this is recurrent issue. Qualifiers: Hepatic cirrhosis type: unspecified hepatic cirrhosis Qualified Code(s): K74.60 - Unspecified cirrhosis of liver (2) Acute respiratory failure with hypoxia Current Visit: No Status: Acute Assessment and plan: Patient still requiring oxygen, with some mild respiratory distress Paracentesis partially relieved symptoms but she is still requiring O2 Possibly left pleural effusion contributing to this IR was unable to do thoracentesis on 11/02 because platelets <50k. Will give patient platelets Sunday/Sunday and consult IR for thoracentesis. Continue supplemental O2 as needed She does exhibit some wheezing and has history of asthma. Will try Prednisone 20 mg daily for 5 days and monitor for improvement. with neb therapy prn. (3) Pleural effusion, left Current Visit: Yes Status: Acute Assessment and plan: Moderate size as seen on CT chest Patient had paracentesis 11/01 removed 4 L ascitic fluid from abdomen Monitor respiratory status and I/Os, Will need to decide if patient needs thoracentesis. Diuresis limited due to renal function (4) Acute kidney injury superimposed on chronic kidney disease Current Visit: Yes Status: Acute Assessment and plan: Nephrology consulted, recommendations appreciated. Kidney function worsened today (5) Hepatorenal syndrome Current Visit: Yes Status: Acute Assessment and plan: Plan as above (6) Fall Current Visit: Yes Status: Acute Assessment and plan: PT.OT CT head negative Fall precautions She does seem to be weak likely from deconditioning as she is not moving much and is bed bound from dyspnea and ascites Qualifiers: Encounter type: initial encounter Qualified Code(s): W19.XXXA - Unspecified fall, initial encounter (7) Hypersplenism Current Visit: Yes Status: Acute (8) Hypertension Current Visit: Yes Status: Acute Assessment and plan: SBP on admit in 170s. Hydralazine PRN for elevated BP. Qualifiers: Hypertension type: essential hypertension Qualified Code(s): I10 - Essential (primary) hypertension (9) Depression Current Visit: Yes Status: Chronic Qualifiers: Depression Type: major depressive disorder Major depression recurrence: recurrent Active/Remission status: currently active Major depression episode severity: unspecified Qualified Code(s): F33.9 - Major depressive disorder, recurrent, unspecified (10) Active asthma Current Visit: No Status: Chronic (11) Diabetes mellitus type 2 in obese Current Visit: No Status: Chronic Assessment and plan: Diabetic/renal diet Levemir 14 units HS ISS (12) Thrombocytopenia Current Visit: No Status: Chronic Assessment and plan: improved today Hematology/Oncology consulted, recommendations appreciated. (13) Gastric varices without bleeding Current Visit: Yes Status: Acute (14) Pancytopenia Current Visit: Yes Status: Acute Assessment and plan: Likely from HENRIQUEZ liver cirrhosis. Hematology/Oncology consulted and recommendations appreciated. (15) DVT prophylaxis Current Visit: No Status: Acute Assessment and plan: Mechanical prophylaxis Pt thrombocytopenic - Subjective Interval history: 11/01: paracentesis done, 4 L fluid removed, abdominal distension feels better 11/02: Doing well but still having difficulty breathing. 11/03: states she feels okay, states she is breathing better but at bedside i note her O2 saturation on continous pulse oxymetry drops to 87-88%. 11/04: Having couple of episodes of n/v requiring Zofran, appetite is poor. - Constitutional Vitals: Temp Pulse Resp BP Pulse Ox 98 F 67 18 130/55 94 11/04/17 07:07 11/04/17 07:07 11/04/17 08:04 11/04/17 07:07 11/04/17 08:14 General appearance: Present: cooperative, A&O X 3, no acute distress, answers questions appropriately Exam: - Head Head exam: Present: atraumatic, normocephalic - Eye Eye exam: Present: PERRL, conjuntiva pink, sclera anicteric Pupils: Present: PERRL - Neck Neck exam general surgery: Present: supple, trachea midline. Absent: lymphadenopathy - Respiratory Respiratory exam: Present: decreased breath sounds. Absent: accessory muscle use, wheezes - Cardiovascular Cardiovascular exam: Present: RRR, +S1, +S2. Absent: diastolic murmur, gallop, rubs, systolic murmur - GI/Abdominal GI/Abdominal exam: Present: distended, normal bowel sounds, soft, no peritoneal signs. Absent: firm, guarding, hernia, mass, rebound, rigid, tenderness - Extremities Exam Extremities exam: Present: warm, radial pulses palpable and symmetrical. Absent : calf tenderness, cyanotic, pedal edema - Neurological Exam Neurological exam: Present: CN II-XII intact, oriented X3, no focal deficits. Absent: pronater drift, facial droop, speech deficit - Skin Skin exam: Present: dry, intact Internal Medicine: Result - Labs CBC & Chem 7: 11/04/17 06:52 11/04/17 06:52 Labs: Short CBC 11/04/17 Range/Units 06:52 WBC 2.2 L (4.3-11.1) K/mcL Hgb 8.7 L (11.5-15.4) g/dL Hct 26.2 L (35.3-44.9) % Plt Count 20 L* (140-400) K/mcL Neutrophils # 1.6 (1.6-8.9) K/mcL BMP 11/04/17 06:52 Sodium 137 Potassium 4.4 Chloride 108 H Carbon Dioxide 19 L BUN 89 H Creatinine 3.07 H Glucose 167 H Calcium 8.3 L - ABG Interpretation ABG results: PT/INR, D-dimer PT 16.5 Seconds (9.4-12.1) H 11/04/17 06:52 Consult Discharge Plan - Plan Referrals: Rashawn Michaels MD [Non-Partnered Physician] - 11/07/17 2:30 pm
[2017-11-04] MEDS ORDERED: Ipratropium/Albuterol Neb 3 ML IH PRN (10:19)
[2017-11-04] MEDS: predniSONE 20 MG TABLET PO SCH (10:51)
--- NOTE | 2017-11-04 13:37 | Nephrology Progress Note ---
Date of Encounter: 11/04/17 Time of Encounter: 13:45 - Assessment and Plan (1) Acute kidney injury superimposed on chronic kidney disease Status: Acute SCr worse again today at 3.07, GFR 15 UOP still not as impressive at 250cc with 150cc emesis in the past 24hrs Continue to avoid nephrotxins if possible will discuss goals of care regarding liver dysfxn affecting kidney fxn and if interested in SURGICAL SCRUB TECHNICIAN if/when needed No acute indication for SURGICAL SCRUB TECHNICIAN today Repeat urine sodium on the low side at 26.3, would benefit from more intravascular volume but hesitant to gie fluid given respiratory status, will bolus albumin instead today (2) Cirrhosis of liver with ascites Status: Acute Per primary team Qualifiers: Hepatic cirrhosis type: unspecified hepatic cirrhosis Qualified Code(s): K74.60 - Unspecified cirrhosis of liver (3) Pancytopenia Status: Acute per primary team Subjective Principal diagnosis: howie on ckd Interval history: Pt seen and examined with no new complaints Objective - Vital Signs Vital signs: Vital Signs Temp Pulse Resp BP Pulse Ox 11/04/17 11:47 97.7 F 70 15 126/55 96 11/04/17 08:14 94 11/04/17 08:04 18 94 11/04/17 07:07 98 F 67 16 130/55 96 11/04/17 04:18 98.5 F 73 15 152/76 95 11/04/17 00:05 98.1 F 68 16 118/62 91 11/03/17 21:29 18 95 11/03/17 19:47 95 11/03/17 19:07 98.1 F 70 17 158/66 95 11/03/17 15:10 98 F 67 14 105/49 95 11/03/17 15:02 93 Intake and Output 11/03/17 11/04/17 11/04/17 23:59 07:59 15:59 Intake Total 120 / 120 120 / 120 Output Total 150 / 150 300 / 300 Balance -150 / -150 -180 / -180 120 / 120 Intake: Oral 120 / 120 120 / 120 Output: Emesis 150 / 150 Catheter 300 / 300 Other: Stool Size Moderate Stool Consistency formed Stool Characteristics Normal for Patient Stool Color Brown # Voids 1 0 0 # Bowel Movements 1 Weight 97.7 kg Blood Glucose* 174 169 230 Patient Weight 11/04/17 23:59 Weight 97.7 kg - General Appearance General appearance: Present: chronically ill EENT: Present: ATNC, mucous membranes moist Neck: Present: no JVD, supple Respiratory: Present: clear Cardiology: Present: edema, normal S1, normal S2 Gastrointestinal: Present: no tenderness, no guarding, distended Integumentary: Present: warm and dry Neurologic: Present: no focal deficit Musculoskeletal: Present: no deformities Psychiatric: Present: mood/affect appropriate, cooperative - Lab 11/26/17 04:00 11/26/17 04:00 Most recent lab results Calcium 8.3 mg/dL (8.6-10.3) L 11/04/17 06:52 Phosphorus 4.7 mg/dL (2.7-4.5) H 11/01/17 04:47 Magnesium 2.1 mg/dL (1.6-2.6) 11/01/17 04:47 Urine Creatinine 98 mg/dL 10/31/17 05:45 Urine Sodium 26.3 mEq/L 11/03/17 16:08 Urine Total Protein 76 mg/dL (1-14) H 10/31/17 05:45 Consult Discharge Plan - Plan Instructions: Cirrhosis (GEN), Ascites (GEN) Referrals: Rashawn Michaels MD [Non-Partnered Physician] - 12/05/17 3:00 pm (Please follow up a sschedule...) Ramon Valderrama DO [Partnered Physician] - Hero Ramirez MD [Partnered Physician] - Prescriptions: amLODIPine [Norvasc] 5 mg PO DAILY 5 Days #5 tablet Budesonide/Formoterol 160/4.5 [Symbicort 160/4.5] 2 puff IH BIDR #1 inhaler Propranolol [Inderal] 20 mg PO BID #10 tablet
[2017-11-04] MEDS: Albumin 25% 25gram/100mL 25 GM/100 ML IV.SOLN IVPB SCH (14:25)
[2017-11-04] MEDS: Insulin DETEMIR 100 UNIT/ML X5UNITS SQ SCH (20:44)
[2017-11-05] MEDS: Albumin 25% 25gram/100mL 25 GM/100 ML IV.SOLN IVPB SCH ×4 (00:11→23:38)
[2017-11-05] MEDS: Octreotide 50 MCG/ML SYRINGE IVP SCH ×2 (00:13→09:06)
[2017-11-05] MEDS: Ondansetron 4 MG/2 ML VIAL IVP PRN (00:22)
[2017-11-05 07:30] LABS: Basophils % 0.4 %; Eosinophils % 0.4 %; Hematocrit 26.6 % (35.3-44.9); Hemoglobin 9.1 g/dL (11.5-15.4); Immature Granulocytes % 0.4 % (0-4); Immature Platelets 7.7 % (1.1-6.1); Lymphocytes # 0.2 K/mcL (0.6-4.6); Lymphocytes % 8.7 %; Mean Corpuscular HGB Conc 34.2 g/dL (31.6-35.5); Mean Corpuscular Hemoglobin 33.2 pg (28.0-33.3); Mean Corpuscular Volume 97.1 fL (83.0-100.0); Monocytes # 0.1 K/mcL (0.0-1.3); Monocytes % 5.5 %; Nucleated Red Blood Cells 0.8 /100 WBC (0); Red Blood Count 2.74 M/mcL (3.82-4.97); Segmented Neutrophils % 84.6 %
[2017-11-05 07:42] LABS: INR 1.7; Prothrombin Time 18.3 Seconds (9.4-12.1)
[2017-11-05 07:50] LABS: Potassium 4.5 mEq/L (3.5-5.1)
[2017-11-05 07:54] LABS: Neutrophils # 2.1 K/mcL (1.6-8.9)
[2017-11-05 07:55] LABS: IFE Reflexed IFE Done; Immunoglobulin A 886 mg/dL (68-408); Immunoglobulin G 1320 mg/dL (768-1632); Immunoglobulin M 199 mg/dL (35-263)
[2017-11-05 07:57] LABS: Platelet Count 22 K/mcL (140-400)
[2017-11-05 07:58] LABS: Platelet Estimate Marked Decrease (Normal)
[2017-11-05] MEDS: Budesonide/Formoterol 160/4.5 MDI IH SCH ×2 (08:10→20:24)
[2017-11-05 08:11] LABS: Myeloperoxidase Ab 0 AU/mL (0-19); Serine Protease-3 Antibody 1 AU/mL (0-19)
[2017-11-05] MEDS: Insulin LISPRO 300 UNITS/3 ML VIAL SQ SCH ×4 (09:09→20:38)
[2017-11-05] MEDS: predniSONE 20 MG TABLET PO SCH (09:09)
[2017-11-05] MEDS: amLODIPine 5 MG TABLET PO SCH (09:09)
--- NOTE | 2017-11-05 11:03 | Internal Med Progress Note ---
Date of Encounter: 11/05/17 Time of Encounter: 11:01 - Assessment and plan (1) Cirrhosis of liver with ascites Current Visit: Yes Status: Acute Assessment and plan: 72-year-old female with diabetes, hypertension and liver cirrhosis 2/2 to [facility]RI[facility] presenting with SOB and abdominal ascites. No fever, abdominal pain or tenderness or Altered mental status on exam. Child-Shaffer Classification Score: 9 (AO x 3, Ascites, Luis < 2 mg/dL, Albumin < 2.8, INR < 1.7). Dietary education, 2 g per day sodium restricted diet - 4 L fluid removed on paracentesis on 11/01 - Feels distention slightly worsening today - GI consulted, recommendations appreciated. Noted that she may require TIPS procedure if this is recurrent issue. Qualifiers: Hepatic cirrhosis type: unspecified hepatic cirrhosis Qualified Code(s): K74.60 - Unspecified cirrhosis of liver (2) Acute respiratory failure with hypoxia Current Visit: No Status: Acute Assessment and plan: Patient still requiring oxygen, with some mild respiratory distress Paracentesis partially relieved symptoms but she is still requiring O2 Possibly left pleural effusion contributing to this IR was unable to do thoracentesis because platelets <50k. Will give patient platelets Sunday/Sunday and consult IR for thoracentesis. Continue supplemental O2 as needed - wean as tolerated Improving a little with Prednisone Continue Prednisone 20 mg daily for 5 days and monitor for improvement. with Duo neb therapy prn. (3) Pleural effusion, left Current Visit: Yes Status: Acute Assessment and plan: Moderate size as seen on CT chest Patient had paracentesis 11/01 removed 4 L ascitic fluid from abdomen Monitor respiratory status and I/Os, Will need to decide if patient needs thoracentesis. Diuresis limited due to renal function (4) Acute kidney injury superimposed on chronic kidney disease Current Visit: Yes Status: Acute Assessment and plan: Nephrology consulted, recommendations appreciated. - Albumin started - Patient function continue to worsen. 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 (5) Hepatorenal syndrome Current Visit: Yes Status: Acute Assessment and plan: Plan as above (6) Fall Current Visit: Yes Status: Acute Assessment and plan: PT.OT CT head negative Fall precautions She does seem to be weak likely from deconditioning as she is not moving much and is bed bound from dyspnea and ascites Qualifiers: Encounter type: initial encounter Qualified Code(s): W19.XXXA - Unspecified fall, initial encounter (7) Hypersplenism Current Visit: Yes Status: Acute (8) Hypertension Current Visit: Yes Status: Acute Assessment and plan: SBP on admit in 170s. Hydralazine PRN for elevated BP. Qualifiers: Hypertension type: essential hypertension Qualified Code(s): I10 - Essential (primary) hypertension (9) Depression Current Visit: Yes Status: Chronic Qualifiers: Depression Type: major depressive disorder Major depression recurrence: recurrent Active/Remission status: currently active Major depression episode severity: unspecified Qualified Code(s): F33.9 - Major depressive disorder, recurrent, unspecified (10) Active asthma Current Visit: No Status: Chronic Assessment and plan: Continue Prednisone 5 day treatment (11) Diabetes mellitus type 2 in obese Current Visit: No Status: Chronic Assessment and plan: Diabetic/renal diet Levemir 14 units HS ISS (12) Thrombocytopenia Current Visit: No Status: Chronic Assessment and plan: improved today Hematology/Oncology consulted, recommendations appreciated. (13) Gastric varices without bleeding Current Visit: Yes Status: Acute (14) Pancytopenia Current Visit: Yes Status: Acute Assessment and plan: Likely from HENRIQUEZ liver cirrhosis. Hematology/Oncology consulted and recommendations appreciated. (15) DVT prophylaxis Current Visit: No Status: Acute Assessment and plan: Mechanical prophylaxis Pt thrombocytopenic - Subjective Interval history: 11/01: paracentesis done, 4 L fluid removed, abdominal distension feels better 11/02: Doing well but still having difficulty breathing. 11/03: states she feels okay, states she is breathing better but at bedside i note her O2 saturation on continous pulse oxymetry drops to 87-88%. 4/1: Having couple of episodes of n/v requiring Zofran, appetite is poor. 4/2: no acute events - Constitutional Vitals: Temp Pulse Resp BP Pulse Ox 98.4 F 105 16 161/70 97 11/05/17 07:36 11/05/17 07:36 11/05/17 08:11 11/05/17 07:36 11/05/17 10:36 General appearance: Present: cooperative, A&O X 3, no acute distress, answers questions appropriately Exam: - Head Head exam: Present: atraumatic, normocephalic - Eye Eye exam: Present: PERRL, conjuntiva pink, sclera anicteric Pupils: Present: PERRL - Neck Neck exam general surgery: Present: supple, trachea midline. Absent: lymphadenopathy - Respiratory Respiratory exam: Present: decreased breath sounds. Absent: accessory muscle use, wheezes - Cardiovascular Cardiovascular exam: Present: RRR, +S1, +S2. Absent: diastolic murmur, gallop, rubs, systolic murmur - GI/Abdominal GI/Abdominal exam: Present: distended, normal bowel sounds, soft, no peritoneal signs. Absent: firm, guarding, hernia, mass, rebound, rigid, tenderness - Extremities Exam Extremities exam: Present: warm, radial pulses palpable and symmetrical. Absent : calf tenderness, cyanotic, pedal edema - Neurological Exam Neurological exam: Present: CN II-XII intact, oriented X3, no focal deficits. Absent: pronater drift, facial droop, speech deficit - Skin Skin exam: Present: dry, intact Internal Medicine: Result - Labs CBC & Chem 7: 11/05/17 06:33 11/05/17 06:33 Labs: Short CBC 11/05/17 Range/Units 06:33 WBC 2.5 L (4.3-11.1) K/mcL Hgb 9.1 L (11.5-15.4) g/dL Hct 26.6 L (35.3-44.9) % Plt Count 22 L* (140-400) K/mcL Neutrophils # 2.1 (1.6-8.9) K/mcL BMP 11/05/17 06:33 Sodium 134 L Potassium 4.5 Chloride 104 Carbon Dioxide 19 L BUN 94 H Creatinine 3.15 H Glucose 196 H Calcium 9.0 - ABG Interpretation ABG results: PT/INR, D-dimer PT 18.3 Seconds (9.4-12.1) H 11/05/17 06:33 Consult Discharge Plan - Plan Referrals: Rashawn Michaels MD [Non-Partnered Physician] - 11/07/17 2:30 pm
--- NOTE | 2017-11-05 12:12 | Nephrology Progress Note ---
<Obdulio Dotson - Last Filed: 11/05/17 15:47> Date of Encounter: 11/05/17 Time of Encounter: 09:00 - Assessment and Plan (1) Acute kidney injury Status: Acute Patient denies hx of CKD. on chart review, Cr baseline is ~1. On admission Cr 2.03 and BUN 62. Patient Cr continues to decline, today Cr is 3.15. GFR in the past has been 44-60, most likely has CKD. Will need further outpatient nephro workup once discharged. ANTONIO is most likely due to prerenal Azotemia in the setting of cirrhosis/ascites. patient has pancytopenia, most likely in the setting of cirrhosis. Patient has protein in urine, if kidney function recovers patient may consider ACEI/ARB. Patient remains pancytopenic. - patient again is retaining fluid; primary team will decide on para- or thora- centesis - discussed possibilty of HD with patient; may require HD on this admission - will closely monitor Cr - renal diet - avoid nephrotoxins - renal dosing - strict I/O (2) Cirrhosis of liver with ascites Status: Acute per primary team Qualifiers: Hepatic cirrhosis type: unspecified hepatic cirrhosis Qualified Code(s): K74.60 - Unspecified cirrhosis of liver (3) Heart murmur Status: Acute on exam, patient has 2/5 systolic heart murmur on 2nd L IC, and 1+ bilateral pitting edema. Patient reports recently feeling SOB. Patient has no hx of heart disease, but concerned for possible CHF. - echo LVEF read as 60-65% Subjective Principal diagnosis: antonio on ckd Interval history: Ms Shaffer is a 72 yo F w/ pmh of cirrhosis, asthma, diabetes, HTN presents with ANTONIO. Nephrology is consulted for ANTONIO. Patient is seen and examined. Patient denies hx of CKD. Patient has no new complaints. Patient denies cp, sob, n/v, abdominal pain, f/c. Objective - Vital Signs Vital signs: Vital Signs Temp Pulse Resp BP Pulse Ox 11/05/17 11:16 98.6 F 72 18 156/75 98 11/05/17 10:36 97 11/05/17 08:11 16 97 11/05/17 07:36 98.4 F 105 18 161/70 92 11/05/17 03:59 97.8 F 74 14 172/76 95 11/05/17 00:07 97.4 F L 72 14 162/75 96 11/04/17 21:16 96 11/04/17 21:10 18 96 11/04/17 20:03 97.5 F L 71 14 153/72 96 11/04/17 16:00 98.5 F 73 14 136/60 96 Intake and Output 11/04/17 11/05/17 11/05/17 23:59 07:59 15:59 Intake Total 280 / 280 120 / 120 100 / 100 Output Total 150 / 150 500 / 500 200 / 200 Balance 130 / 130 -380 / -380 -100 / -100 Intake: IV Fluids 100 / 100 100 / 100 100 / 100 Flexbumin 25 gm In 100 ml @ 60 100 / 100 100 / 100 100 / 100 mls/hr IVPB Q8HR [facility] Rx#: [id number] Oral 180 / 180 20 / 20 Output: Emesis 50 / 50 Catheter 150 / 150 450 / 450 200 / 200 2-way Urethral 100 / 100 Other: Meal Dinner Percent of Meal Consumed 10% 25% Stool Size Small Large Small Stool Consistency formed soft soft Stool Characteristics Normal for Patient Stool Color Brown Brown Brown # Bowel Movements 1 1 Weight 97.8 kg Blood Glucose* 235 199 188 Patient Weight 11/05/17 23:59 Weight 97.8 kg - General Appearance General appearance: Present: obese, chronically ill, fatigue Neck: Present: supple Respiratory: Present: clear Cardiology: Present: regular rate, regular rhythm Gastrointestinal: Present: normoactive bowel sounds, no tenderness, no guarding , obese, distended Integumentary: Present: warm and dry Neurologic: Present: alert and oriented x3 Psychiatric: Present: mood/affect appropriate, cooperative - Lab 11/05/17 06:33 11/05/17 06:33 Most recent lab results Calcium 9.0 mg/dL (8.6-10.3) 11/05/17 06:33 Phosphorus 4.7 mg/dL (2.7-4.5) H 11/01/17 04:47 Magnesium 2.1 mg/dL (1.6-2.6) 11/01/17 04:47 Urine Creatinine 98 mg/dL 10/31/17 05:45 Urine Sodium 26.3 mEq/L 11/03/17 16:08 Urine Total Protein 76 mg/dL (1-14) H 10/31/17 05:45 Consult Discharge Plan - Plan Instructions: Cirrhosis (GEN), Ascites (GEN) Referrals: Rashawn Michaels MD [Non-Partnered Physician] - 12/05/17 3:00 pm (Please follow up a sschedule...) Ramon Valderrama DO [Partnered Physician] - Hero Ramirez MD [Partnered Physician] - Prescriptions: amLODIPine [Norvasc] 5 mg PO DAILY 5 Days #5 tablet Budesonide/Formoterol 160/4.5 [Symbicort 160/4.5] 2 puff IH BIDR #1 inhaler Propranolol [Inderal] 20 mg PO BID #10 tablet <Aniya Robb - Last Filed: 12/04/17 19:40> Date of Encounter: 11/05/17 - Assessment and Plan (1) Acute kidney injury superimposed on chronic kidney disease Status: Acute (2) Cirrhosis of liver with ascites Status: Acute Qualifiers: Hepatic cirrhosis type: unspecified hepatic cirrhosis Qualified Code(s): K74.60 - Unspecified cirrhosis of liver (3) Pancytopenia Status: Acute Objective - Lab 11/26/17 04:00 11/26/17 04:00 Most recent lab results Calcium 9.1 mg/dL (8.6-10.3) 11/26/17 04:00 Phosphorus 4.4 mg/dL (2.7-4.5) 11/20/17 12:44 Magnesium 1.9 mg/dL (1.6-2.6) 11/24/17 03:53 Urine Creatinine 98 mg/dL 10/31/17 05:45 Urine Sodium 26.3 mEq/L 11/03/17 16:08 Urine Total Protein 76 mg/dL (1-14) H 10/31/17 05:45 - Attending Attestation I examined this patient and my medical decision-making was reviewed with the Resident Physician. I agree with the documented findings, disposition and treatment plan as described except to the extent set forth below. Pt seen and examined with worsening renal function with SCr at 3.15, GFR 15 today. UOP documented at 400cc in the past 24hrs. 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 Paracentesis and/or thoracentesis per primary team but problematic given pancytopenia. LE edema noted with distended abdomen.
--- NOTE | 2017-11-05 14:25 | Gastroenterology Progress Note ---
<Talon Ng - Last Filed: 11/05/17 14:24> Date of Encounter: 11/05/17 Time of Encounter: 14:24 - Time Spent With Patient Total time spent is greater than 50% in coordination of care (as documented) at patient's floor/unit and/or counseling patient: - Subjective Interval history: Ms Shaffer is a 72 yo F w/ pmh of cirrhosis, asthma, diabetes, HTN presents with ANTONIO. Nephrology is consulted for ANTONIO. Patient is seen and examined. Patient denies hx of CKD. Patient has no new complaints. Patient denies cp, sob, n/v, abdominal pain, f/c. - Constitutional Vitals: Temp Pulse Resp BP Pulse Ox 98.3 F 93 18 142/74 93 11/05/17 14:06 11/05/17 14:06 11/05/17 11:16 11/05/17 14:06 11/05/17 14:06 Results - Labs CBC & Chem 7: 11/05/17 06:33 11/05/17 06:33 Labs: Last Result Calcium 9.0 mg/dL (8.6-10.3) 11/05/17 06:33 Iron 52 mcg/dL (50-170) 11/01/17 04:47 % Saturation 19 % (15-50) 11/01/17 04:47 Transferrin 192 mg/dL (203-362) L 11/01/17 04:47 Ferritin 81 ng/ml (10-120) 11/01/17 04:47 Vitamin B12 1163 pg/mL (250-1100) H 11/01/17 04:47 Folate > 22.3 ng/mL (3.0-16.0) H 11/01/17 04:47 Entire Visit Hgb 9.1 g/dL (11.5-15.4) L 11/05/17 06:33 Hct 26.6 % (35.3-44.9) L 11/05/17 06:33 Haptoglobin <10 mg/dL (30-200) L 11/02/17 04:32 PT 18.3 Seconds (9.4-12.1) H 11/05/17 06:33 Ferritin 81 ng/ml (10-120) 11/01/17 04:47 Total Bilirubin 2.2 mg/dL (0.3-1.0) H 10/31/17 05:29 AST 29 Units/L (13-39) 10/31/17 05:29 ALT 16 Units/L (7-52) 10/31/17 05:29 Folate > 22.3 ng/mL (3.0-16.0) H 11/01/17 04:47 - ABG ABG results: PT/INR, D-dimer PT 18.3 Seconds (9.4-12.1) H 11/05/17 06:33 Consult Discharge Plan - Plan Referrals: Rashawn Michaels MD [Non-Partnered Physician] - 11/07/17 2:30 pm <Mayur Hsieh - Last Filed: 11/05/17 16:02> Date of Encounter: 11/05/17 - Time Spent With Patient Total time spent is greater than 50% in coordination of care (as documented) at patient's floor/unit and/or counseling patient: - Constitutional Vitals: Temp Pulse Resp BP Pulse Ox 98.2 F 72 19 154/71 96 11/05/17 15:32 11/05/17 15:32 11/05/17 15:32 11/05/17 15:32 11/05/17 15:17 Results - Labs CBC & Chem 7: 11/05/17 06:33 11/05/17 06:33 Labs: Last Result Calcium 9.0 mg/dL (8.6-10.3) 11/05/17 06:33 Iron 52 mcg/dL (50-170) 11/01/17 04:47 % Saturation 19 % (15-50) 11/01/17 04:47 Transferrin 192 mg/dL (203-362) L 11/01/17 04:47 Ferritin 81 ng/ml (10-120) 11/01/17 04:47 Vitamin B12 1163 pg/mL (250-1100) H 11/01/17 04:47 Folate > 22.3 ng/mL (3.0-16.0) H 11/01/17 04:47 Entire Visit Hgb 9.1 g/dL (11.5-15.4) L 11/05/17 06:33 Hct 26.6 % (35.3-44.9) L 11/05/17 06:33 Haptoglobin <10 mg/dL (30-200) L 11/02/17 04:32 PT 18.3 Seconds (9.4-12.1) H 11/05/17 06:33 Ferritin 81 ng/ml (10-120) 11/01/17 04:47 Total Bilirubin 2.2 mg/dL (0.3-1.0) H 10/31/17 05:29 AST 29 Units/L (13-39) 10/31/17 05:29 ALT 16 Units/L (7-52) 10/31/17 05:29 Folate > 22.3 ng/mL (3.0-16.0) H 11/01/17 04:47 - ABG ABG results: PT/INR, D-dimer PT 18.3 Seconds (9.4-12.1) H 11/05/17 06:33 - Attending Attestation Ms. Shaffer has decompensated cirrhosis with portal hypertension and ascites. Hypersplenism, thrombocytopenia and ascites. Will review her old records and make further recommendations. Feel she has HRS2 in a setting of CKD, ANTONIO. Nephrology following also. I examined this patient and my medical decision-making was reviewed with the Resident Physician. I agree with the documented findings, disposition and treatment plan as described except to the extent set forth below.
[2017-11-05] MEDS ORDERED: 0.9 % Sodium Chloride 250 ML ONE (14:57)
[2017-11-05] MEDS: Insulin DETEMIR 100 UNIT/ML X5UNITS SQ SCH (20:39)
[2017-11-06 05:52] LABS: Eosinophils % 0.4 %; Hemoglobin 8.5 g/dL (11.5-15.4); Immature Granulocytes % 0.4 % (0-4); Red Cell Distribution Width 16.3 % (11.5-14.5)
[2017-11-06 05:54] LABS: Hematocrit 25.6 % (35.3-44.9); Immature Platelets 5.3 % (1.1-6.1); Lymphocytes # 0.3 K/mcL (0.6-4.6); Lymphocytes % 10.8 %; Mean Corpuscular HGB Conc 33.2 g/dL (31.6-35.5); Mean Corpuscular Hemoglobin 32.3 pg (28.0-33.3); Mean Corpuscular Volume 97.3 fL (83.0-100.0); Mean Platelet Volume 10.4 fL (9.4-12.4); Monocytes # 0.2 K/mcL (0.0-1.3); Monocytes % 6.8 %; Red Blood Count 2.63 M/mcL (3.82-4.97); Segmented Neutrophils % 81.6 %
[2017-11-06 06:05] LABS: Platelet Count 28 K/mcL (140-400)
[2017-11-06 06:23] LABS: Calcium 9.1 mg/dL (8.6-10.3); Potassium 4.5 mEq/L (3.5-5.1)
[2017-11-06] MEDS: Budesonide/Formoterol 160/4.5 MDI IH SCH ×2 (07:55→19:37)
--- NOTE | 2017-11-06 08:03 | Gastroenterology Progress Note ---
<Talon Ng - Last Filed: 11/06/17 16:32> Date of Encounter: 11/06/17 Time of Encounter: 08:02 - Assessment and plan (1) Hepatorenal syndrome Current Visit: Yes Status: Acute Assessment and plan: Type 2 hepatorenal syndrome in the setting of CKD, ANTONIO with ascites that is resistant to diuretics. Meld NA 26, Child frost 9 points corresponding to Child Class B with indication for liver transplant evaluation vs. TIPS procedure. Abdominal surgery reina-operative mortality: 30% Patient given initial treatment with a combination of Midodrine, Octreotide, and Albumin. In patients who fail to respond to medical therapy with the above regimen and who are considered well enough to undergo the procedure, transjugular intrahepatic portosystemic shunt (TIPS) is sometimes successful. However, this procedure is associated with numerous complications and, because of the need for intravenous contrast, it may cause acute kidney injury. For this reason, some experts prefer dialysis as a first option (continuous renal replacement therapy) in most cases, particularly for patients whose serum creatinine remains above 1.5 mg/dL despite medical therapy. Avoid diuretics In patients who fail to respond to the above therapies, develop severely impaired renal function, and either are candidates for liver transplantation or have a reversible form of liver injury and are expected to survive, consider dialysis as a bridge to liver transplantation or liver recovery. (2) Liver cirrhosis secondary to nonalcoholic steatohepatitis (HENRIQUEZ) Current Visit: No Status: Chronic Assessment and plan: Decompensated cirrhosis with portal hypertension and ascites. Meld NA 26, Child frost 9 points corresponding to Child Class B with indication for transplant evaluation vs. TIPS procedure. Abdominal surgery reina-operative mortality: 30% AFP was 2, Hepatitis panel negative. (3) Acute kidney injury Current Visit: Yes Status: Acute Assessment and plan: Avoid diuretics due to HRS (4) Hypersplenism Current Visit: Yes Status: Chronic Assessment and plan: Hypersplenism/ thrombocytopenia 2 units platelets transfused - Time Spent With Patient Total time spent is greater than 50% in coordination of care (as documented) at patient's floor/unit and/or counseling patient: - Subjective Interval history: Patient seen and examined. Patient received second platelet transfusion yesterday. Patient reports ambulating today and tolerating PO intake without difficulty. Patient had 250cc UOP in cuello catheter yesterday. - Constitutional Vitals: Temp Pulse Resp BP Pulse Ox 98.0 F 75 16 176/72 94 11/06/17 06:37 11/06/17 06:37 11/06/17 06:37 11/06/17 06:37 11/06/17 06:37 General appearance: Present: cooperative, A&O X 3, no acute distress, obese, answers questions appropriately - Head Head exam: Present: atraumatic, normocephalic - Eye Eye exam: Present: normal appearance, sclera anicteric - ENT ENT exam: Present: mucous membranes moist, normal oropharynx - Neck Neck exam general surgery: Present: normal inspection, trachea midline - Respiratory Respiratory exam: Present: CTAB - Cardiovascular Cardiovascular exam: Present: RRR, +S1, +S2 - GI/Abdominal GI/Abdominal exam: Present: normal bowel sounds, soft (obese), no peritoneal signs. Absent: distended, tenderness Additional comments: cuello catheter in place - Rectal Rectal exam: Present: deferred - Extremities Exam Extremities exam: Present: warm - Neurological Exam Neurological exam: Present: oriented X3, no focal deficits - Psychiatric Psychiatric exam: Present: normal affect, normal mood - Skin Skin exam: Present: dry, intact, normal color, warm Results - Labs CBC & Chem 7: 11/06/17 04:03 11/06/17 04:03 Labs: Last Result Calcium 9.1 mg/dL (8.6-10.3) 11/06/17 04:03 Iron 52 mcg/dL (50-170) 11/01/17 04:47 % Saturation 19 % (15-50) 11/01/17 04:47 Transferrin 192 mg/dL (203-362) L 11/01/17 04:47 Ferritin 81 ng/ml (10-120) 11/01/17 04:47 Vitamin B12 1163 pg/mL (250-1100) H 11/01/17 04:47 Folate > 22.3 ng/mL (3.0-16.0) H 11/01/17 04:47 Entire Visit Hgb 8.5 g/dL (11.5-15.4) L 11/06/17 04:03 Hct 25.6 % (35.3-44.9) L 11/06/17 04:03 Haptoglobin <10 mg/dL (30-200) L 11/02/17 04:32 PT 18.3 Seconds (9.4-12.1) H 11/05/17 06:33 Ferritin 81 ng/ml (10-120) 11/01/17 04:47 Total Bilirubin 2.2 mg/dL (0.3-1.0) H 10/31/17 05:29 AST 29 Units/L (13-39) 10/31/17 05:29 ALT 16 Units/L (7-52) 10/31/17 05:29 Folate > 22.3 ng/mL (3.0-16.0) H 11/01/17 04:47 - ABG ABG results: PT/INR, D-dimer PT 18.3 Seconds (9.4-12.1) H 11/05/17 06:33 - Impressions ITS Impressions Paracentesis Ultrasound 11/01/17 00:00 IMPRESSION: Successful ultrasound guided paracentesis. D/ / Francois Villeda MD / Francois Villeda MD Interpreting Provider: Francois Villeda MD Consult Discharge Plan - Plan Referrals: Rashawn Michaels MD [Non-Partnered Physician] - 11/22/17 1:45 pm (Please follow up a sschedule...) Prescriptions: amLODIPine [Norvasc] 5 mg PO DAILY 5 Days #5 tablet Budesonide/Formoterol 160/4.5 [Symbicort 160/4.5] 2 puff IH BIDR #1 inhaler Propranolol [Inderal] 20 mg PO BID #10 tablet <Mayur Hsieh - Last Filed: 11/21/17 13:10> Date of Encounter: 11/06/17 - Time Spent With Patient Total time spent is greater than 50% in coordination of care (as documented) at patient's floor/unit and/or counseling patient: - Constitutional Vitals: Temp Pulse Resp BP Pulse Ox 97.3 F L 65 18 117/57 96 11/21/17 10:05 11/21/17 06:45 11/21/17 10:05 11/21/17 12:50 11/21/17 06:45 Results - Labs CBC & Chem 7: 11/21/17 06:36 11/21/17 06:36 Labs: Last Result Calcium 9.1 mg/dL (8.6-10.3) 11/21/17 06:36 Iron 52 mcg/dL (50-170) 11/01/17 04:47 % Saturation 19 % (15-50) 11/01/17 04:47 Transferrin 192 mg/dL (203-362) L 11/01/17 04:47 Ferritin 81 ng/ml (10-120) 11/01/17 04:47 Vitamin B12 1163 pg/mL (250-1100) H 11/01/17 04:47 Folate > 22.3 ng/mL (3.0-16.0) H 11/01/17 04:47 Entire Visit Hgb 8.8 g/dL (11.5-15.4) L 11/21/17 06:36 Hct 27.1 % (35.3-44.9) L 11/21/17 06:36 Haptoglobin <10 mg/dL (30-200) L 11/02/17 04:32 PT 16.7 Seconds (9.4-12.1) H 11/20/17 05:56 Ferritin 81 ng/ml (10-120) 11/01/17 04:47 Total Bilirubin 2.7 mg/dL (0.3-1.0) H 11/10/17 04:00 AST 18 Units/L (13-39) 11/10/17 04:00 ALT 12 Units/L (7-52) 11/10/17 04:00 Folate > 22.3 ng/mL (3.0-16.0) H 11/01/17 04:47 - ABG ABG results: PT/INR, D-dimer PT 16.7 Seconds (9.4-12.1) H 11/20/17 05:56 - Impressions Impressions Chest X-Ray 11/21/17 11:07 IMPRESSION: Right IJ dialysis catheter tip projects over the lower SVC. Increased pulmonary edema. D/ / Cristobal Barrios MD / Cristobal Barrios MD Interpreting Provider: Cristobal Barrios MD - Attending Attestation I examined this patient and my medical decision-making was reviewed with the Resident Physician. I agree with the documented findings, disposition and treatment plan as described except to the extent set forth below.
[2017-11-06] MEDS: Insulin LISPRO 300 UNITS/3 ML VIAL SQ SCH ×4 (08:22→22:29)
[2017-11-06] MEDS: Albumin 25% 25gram/100mL 25 GM/100 ML IV.SOLN IVPB SCH ×2 (08:22→17:38)
[2017-11-06] MEDS: amLODIPine 5 MG TABLET PO SCH (08:23)
[2017-11-06] MEDS: predniSONE 20 MG TABLET PO SCH (08:23)
--- NOTE | 2017-11-06 08:35 | Nephrology Progress Note ---
<Obdulio Dotson - Last Filed: 11/06/17 11:31> Date of Encounter: 11/06/17 Time of Encounter: 08:35 - Assessment and Plan (1) Acute kidney injury Status: Acute Patient denies hx of CKD. on chart review, Cr baseline is ~1. On admission Cr 2.03 and BUN 62. Patient Cr continues to decline, today Cr is 3.19. GFR in the past has been 44-60, most likely has CKD. Will need further outpatient nephro workup once discharged. ANTONIO is most likely due to prerenal Azotemia in the setting of cirrhosis/ascites. patient has pancytopenia, most likely in the setting of cirrhosis. Patient has protein in urine, if kidney function recovers patient may consider ACEI/ARB. Patient remains pancytopenic. patient may need AIR ROUTE CONTROLLER therapy during this visit. Will f/u with GI on their plans. - Patient was started on albumin yesterday for 2 days - will closely monitor Cr - renal diet - avoid nephrotoxins - renal dosing - strict I/O (2) Cirrhosis of liver with ascites Status: Acute per primary team Qualifiers: Hepatic cirrhosis type: unspecified hepatic cirrhosis Qualified Code(s): K74.60 - Unspecified cirrhosis of liver (3) Heart murmur Status: Acute on exam, patient has 2/5 systolic heart murmur on 2nd L IC, and 1+ bilateral pitting edema. Patient reports recently feeling SOB. Patient has no hx of heart disease, but concerned for possible CHF. - echo LVEF read as 60-65% Subjective Principal diagnosis: antonio on ckd Interval history: Ms Shaffer is a 72 yo F w/ pmh of cirrhosis, asthma, diabetes, HTN presents with ANTONIO. Nephrology is consulted for ANTONIO. Patient is seen and examined. Patient denies hx of CKD. Patient has no new complaints. Patient denies cp, sob, n/v, abdominal pain, f/c. Objective - Vital Signs Vital signs: Vital Signs Temp Pulse Resp BP Pulse Ox 11/06/17 07:55 16 92 11/06/17 06:37 98.0 F 75 16 176/72 94 11/06/17 04:51 97.8 F 71 16 127/62 95 11/05/17 22:56 97.6 F 71 18 153/62 93 11/05/17 20:25 18 92 11/05/17 19:24 97.3 F L 70 18 155/72 93 11/05/17 15:32 98.2 F 72 19 154/71 11/05/17 15:17 97.6 F 74 21 140/66 96 11/05/17 14:06 98.3 F 93 142/74 93 11/05/17 11:16 98.6 F 72 18 156/75 98 11/05/17 10:36 97 Intake and Output 11/05/17 11/06/17 11/06/17 23:59 07:59 15:59 Intake Total 790 / 790 0 / 0 100 / 100 Output Total 250 / 250 250 / 250 Balance 540 / 540 -250 / -250 100 / 100 Intake: IV Fluids 100 / 100 100 / 100 Flexbumin 25 gm In 100 ml @ 60 100 / 100 100 / 100 mls/hr IVPB Q8HR [facility] Rx#: [id number] Oral 240 / 240 0 / 0 Blood Product 450 / 450 Platelet Pheresis Lp Irr 2nd 450 / 450 Unit [id number] Output: Catheter 250 / 250 250 / 250 Other: Meal Dinner Percent of Meal Consumed 90% Stool Size Moderate Stool Consistency soft Stool Color Brown # Bowel Movements 1 Blood Glucose* 245 144 - General Appearance General appearance: Present: appears started age, obese, fatigue Neck: Present: supple Respiratory: Present: clear Cardiology: Present: regular rate, regular rhythm, normal S1, normal S2 Gastrointestinal: Present: normoactive bowel sounds, distended Integumentary: Present: warm and dry Neurologic: Present: alert and oriented x3 Psychiatric: Present: mood/affect appropriate, cooperative - Lab 11/06/17 04:03 11/06/17 04:03 Most recent lab results Calcium 9.1 mg/dL (8.6-10.3) 11/06/17 04:03 Phosphorus 4.7 mg/dL (2.7-4.5) H 11/01/17 04:47 Magnesium 2.1 mg/dL (1.6-2.6) 11/01/17 04:47 Urine Creatinine 98 mg/dL 10/31/17 05:45 Urine Sodium 26.3 mEq/L 11/03/17 16:08 Urine Total Protein 76 mg/dL (1-14) H 10/31/17 05:45 Consult Discharge Plan - Plan Instructions: Cirrhosis (GEN), Ascites (GEN) Referrals: Rasahwn Michaels MD [Non-Partnered Physician] - 12/05/17 3:00 pm (Please follow up a sschedule...) Ramon Valderrama DO [Partnered Physician] - Hero Ramirez MD [Partnered Physician] - Prescriptions: amLODIPine [Norvasc] 5 mg PO DAILY 5 Days #5 tablet Budesonide/Formoterol 160/4.5 [Symbicort 160/4.5] 2 puff IH BIDR #1 inhaler Propranolol [Inderal] 20 mg PO BID #10 tablet <ZaintatashalomAniya Matthew - Last Filed: 12/04/17 23:14> Date of Encounter: 11/06/17 - Assessment and Plan (1) Acute kidney injury superimposed on chronic kidney disease Status: Acute (2) Cirrhosis of liver with ascites Status: Acute Qualifiers: Hepatic cirrhosis type: unspecified hepatic cirrhosis Qualified Code(s): K74.60 - Unspecified cirrhosis of liver (3) Pancytopenia Status: Acute Objective - Lab 11/26/17 04:00 11/26/17 04:00 Most recent lab results Calcium 9.1 mg/dL (8.6-10.3) 11/26/17 04:00 Phosphorus 4.4 mg/dL (2.7-4.5) 11/20/17 12:44 Magnesium 1.9 mg/dL (1.6-2.6) 11/24/17 03:53 Urine Creatinine 98 mg/dL 10/31/17 05:45 Urine Sodium 26.3 mEq/L 11/03/17 16:08 Urine Total Protein 76 mg/dL (1-14) H 10/31/17 05:45 - Attending Attestation I examined this patient and my medical decision-making was reviewed with the Resident Physician. I agree with the documented findings, disposition and treatment plan as described except to the extent set forth below. Pt seen and examined with no change in status. SCr continues to worse despite albumin started yesterday afternoon. Discussed again possible need for AIR R[employer]TE CONTROLLER during this hospital if continued worsening in renal function and fluid overload. Exam still shows LE edema and distended abdomen.
--- NOTE | 2017-11-06 12:13 | Internal Med Progress Note ---
Date of Encounter: 11/06/17 Time of Encounter: 12:11 - Assessment and plan (1) Diabetes mellitus type 2 in obese Current Visit: Yes Status: Chronic Assessment and plan: FS ACHS Continue insulin, ADA diet (2) Acute respiratory failure with hypoxia Current Visit: Yes Status: Acute Assessment and plan: atient still requiring oxygen, with some mild respiratory distress Paracentesis partially relieved symptoms but she is still requiring O2 Possibly left pleural effusion contributing to this IR was unable to do thoracentesis because platelets <50k. Will give patient platelets today, 5 more units Continue supplemental O2 as needed - wean as tolerated Improving with Prednisone Continue Prednisone 20 mg daily for 5 days and monitor for improvement. with Duo neb therapy prn. (3) Active asthma Current Visit: Yes Status: Chronic Assessment and plan: as above (4) Thrombocytopenia Current Visit: Yes Status: Chronic Assessment and plan: PLT today 28 Give additional 5 units Goal is 50,000 for paracenensis and thoracentensis Continue to monitor No current evidence of bleeding Heme/Onc noted-B12 folate TSH normal, Her hematological problems cannot be reversed given end-stage liver disease. (5) DVT prophylaxis Current Visit: Yes Status: Acute Assessment and plan: SCDs (6) Hypertension Current Visit: Yes Status: Chronic Assessment and plan: Elevated blood pressure on arrival, required 2 doses of hydralazine, continue to monitor Qualifiers: Hypertension type: essential hypertension Qualified Code(s): I10 - Essential (primary) hypertension (7) Depression Current Visit: Yes Status: Chronic Assessment and plan: continue home meds Qualifiers: Depression Type: major depressive disorder Major depression recurrence: recurrent Active/Remission status: currently active Major depression episode severity: unspecified Qualified Code(s): F33.9 - Major depressive disorder, recurrent, unspecified (8) Cirrhosis of liver with ascites Current Visit: Yes Status: Acute Assessment and plan: 72-year-old female with diabetes, hypertension and liver cirrhosis 2/2 to HENRIQUEZ presenting with SOB and abdominal ascites. No fever, abdominal pain or tenderness or Altered mental status on exam. Child-Shaffer Classification Score: 9 (AO x 3, Ascites, Luis < 2 mg/dL, Albumin < 2.8, INR < 1.7). Dietary education, 2 g per day sodium restricted diet - 4 L fluid removed on paracentesis on 11/01 -Ascites hs recollected - GI consulted, recommendations appreciated. Noted that she may require TIPS procedure if this is recurrent issue. -For paracentensis when PLT >50K -No diuretics due to ANTONIO on CKD, Hepatorenal syndrome Qualifiers: Hepatic cirrhosis type: unspecified hepatic cirrhosis Qualified Code(s): K74.60 - Unspecified cirrhosis of liver (9) Hepatorenal syndrome Current Visit: Yes Status: Acute Assessment and plan: management per renal Not on any diuretics at this time (10) Acute kidney injury superimposed on chronic kidney disease Current Visit: Yes Status: Acute Assessment and plan: Not improving renal following We will follow their recommendations (11) Fall Current Visit: Yes Status: Acute Assessment and plan: PT.OT eliecer noted- for home health CT head negative Fall precautions Qualifiers: Encounter type: initial encounter Qualified Code(s): W19.XXXA - Unspecified fall, initial encounter (12) Hypersplenism Current Visit: Yes Status: Chronic Assessment and plan: as in liver disease (13) Pancytopenia Current Visit: Yes Status: Acute Assessment and plan: as in thrombocytopenia, continue to monitor RBC transfusion for HB <7 (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 Current Visit: Yes Status: Chronic Assessment and plan: secondary to liver disease/portal HTN (15) Pleural effusion, left Current Visit: Yes Status: Acute Assessment and plan: Moderate size as seen on CT chest Patient had paracentesis 11/01 removed 4 L ascitic fluid from abdomen Monitor respiratory status and I/Os, For thoracentensis after PLT transfusion Continue O2 supplementation - Time Spent With Patient Total time spent is greater than 50% in coordination of care (as documented) at patient's floor/unit and/or counseling patient: - Subjective Interval history: Seen and evaluated at the bedside She is being managed for decompensated liver cirrhosis with ascites, pleural effusion, Type II heptorenal syndrome, ANTONIO on CKD, She also has pancytopenai with PLT <30,000 whihc has precluded her from getting any procedures She is s/p paracentensis with 4L removed 11/01 She has no new complains, she is ambulatory - Constitutional Vitals: Temp Pulse Resp BP Pulse Ox 97.9 F 77 18 119/57 91 11/06/17 10:53 11/06/17 10:53 11/06/17 10:53 11/06/17 10:53 11/06/17 10:53 General appearance: Present: cooperative, A&O X 3, no acute distress, obese, answers questions appropriately - Head Head exam: Present: atraumatic, normocephalic - Eye Eye exam: Present: PERRL, conjuntiva pink, sclera anicteric Pupils: Present: PERRL - Neck Neck exam general surgery: Present: supple, trachea midline. Absent: lymphadenopathy - Respiratory Respiratory exam: Present: CTAB. Absent: accessory muscle use, rales, rhonchi, wheezes - Cardiovascular Cardiovascular exam: Present: RRR, +S1, +S2. Absent: diastolic murmur, gallop, rubs, systolic murmur - GI/Abdominal GI/Abdominal exam: Present: distended, normal bowel sounds, soft, no peritoneal signs. Absent: tenderness - Extremities Exam Extremities exam: Present: warm, radial pulses palpable and symmetrical. Absent : calf tenderness, cyanotic, pedal edema - Neurological Exam Neurological exam: Present: alert, CN II-XII intact, oriented X3, no focal deficits. Absent: pronater drift, facial droop, speech deficit - Skin Additional comments: multiple bruises Internal Medicine: Result - Labs CBC & Chem 7: 11/06/17 04:03 11/06/17 04:03 Labs: Short CBC 11/06/17 Range/Units 04:03 WBC 2.5 L (4.3-11.1) K/mcL Hgb 8.5 L (11.5-15.4) g/dL Hct 25.6 L (35.3-44.9) % Plt Count 28 L* (140-400) K/mcL Neutrophils # 2.0 (1.6-8.9) K/mcL BMP 11/06/17 04:03 Sodium 134 L Potassium 4.5 Chloride 105 Carbon Dioxide 17 L BUN 101 H Creatinine 3.19 H Glucose 172 H Calcium 9.1 - ABG Interpretation ABG results: PT/INR, D-dimer PT 18.3 Seconds (9.4-12.1) H 11/05/17 06:33 Consult Discharge Plan - Plan Referrals: Rashawn Michaels MD [Non-Partnered Physician] - 11/13/17 3:15 pm
[2017-11-06] MEDS ORDERED: 0.9 % Sodium Chloride 250 ML ONE (12:53)
[2017-11-06] MEDS: Insulin DETEMIR 100 UNIT/ML X5UNITS SQ SCH (22:29)
[2017-11-07 05:35] LABS: Eosinophils % 0.4 %; Immature Granulocytes % 0.4 % (0-4); Red Cell Distribution Width 16.2 % (11.5-14.5)
[2017-11-07 05:37] LABS: Hematocrit 24.7 % (35.3-44.9); Hemoglobin 8.3 g/dL (11.5-15.4); Immature Platelets 3.4 % (1.1-6.1); Lymphocytes # 0.2 K/mcL (0.6-4.6); Lymphocytes % 8.9 %; Mean Corpuscular HGB Conc 33.6 g/dL (31.6-35.5); Mean Corpuscular Hemoglobin 32.3 pg (28.0-33.3); Mean Corpuscular Volume 96.1 fL (83.0-100.0); Mean Platelet Volume 11.6 fL (9.4-12.4); Monocytes # 0.2 K/mcL (0.0-1.3); Monocytes % 8.9 %; Nucleated Red Blood Cells 0.9 /100 WBC (0); Red Blood Count 2.57 M/mcL (3.82-4.97); Segmented Neutrophils % 81.4 %
[2017-11-07 05:44] LABS: Platelet Count 33 K/mcL (140-400)
[2017-11-07 05:57] LABS: Potassium 4.4 mEq/L (3.5-5.1)
--- NOTE | 2017-11-07 08:04 | Nephrology Progress Note ---
<Obdulio Dotson - Last Filed: 11/07/17 12:24> Date of Encounter: 11/07/17 Time of Encounter: 08:01 - Assessment and Plan (1) Acute kidney injury Status: Acute Patient denies hx of CKD. on chart review, Cr baseline is ~1. On admission Cr 2.03 and BUN 62. Patient Cr continues to decline, today Cr is 3.28. GFR in the past has been 44-60, most likely has CKD. Will need further outpatient nephro workup once discharged. ANTONIO is most likely due to prerenal Azotemia in the setting of cirrhosis/ascites. patient has pancytopenia, most likely in the setting of cirrhosis. Patient has protein in urine, if kidney function recovers patient may consider ACEI/ARB. Patient remains pancytopenic. patient may need SIFTER AND MILLER therapy during this visit. Patient will receive paracentesis once replacement with FFP increase plt >50. - will closely monitor Cr - renal diet - avoid nephrotoxins - renal dosing - strict I/O (2) Cirrhosis of liver with ascites Status: Acute per primary team Qualifiers: Hepatic cirrhosis type: unspecified hepatic cirrhosis Qualified Code(s): K74.60 - Unspecified cirrhosis of liver (3) Heart murmur Status: Acute on exam, patient has 2/5 systolic heart murmur on 2nd L IC, and 1+ bilateral pitting edema. Patient reports recently feeling SOB. Patient has no hx of heart disease, but concerned for possible CHF. - echo LVEF read as 60-65% Subjective Principal diagnosis: antonio on ckd Interval history: Ms Shaffer is a 72 yo F w/ pmh of cirrhosis, asthma, diabetes, HTN presents with ANTONIO. Nephrology is consulted for ANTONIO. Patient is seen and examined. Patient denies any change in symptoms. Patient has no new complaints. Patient denies cp, sob, n/v, abdominal pain, f/c. Objective - Vital Signs Vital signs: Vital Signs Temp Pulse Resp BP Pulse Ox 11/07/17 07:30 97.7 F 77 18 158/68 93 11/07/17 04:03 98.3 F 69 18 146/75 93 11/06/17 23:39 98.0 F 66 18 133/64 90 11/06/17 20:14 97.8 F 77 16 160/75 93 11/06/17 16:00 98.0 F 73 15 144/72 11/06/17 15:41 98.1 F 73 18 126/68 91 11/06/17 14:39 98.2 F 73 18 121/66 90 11/06/17 13:27 98.1 F 74 15 153/74 11/06/17 12:59 98.1 F 75 15 150/77 11/06/17 10:53 97.9 F 77 18 119/57 91 Intake and Output 11/06/17 11/07/17 11/07/17 23:59 07:59 15:59 Intake Total 640 / 640 Output Total 475 / 475 Balance 640 / 640 -475 / -475 Intake: Oral 240 / 240 Blood Product 400 / 400 Platelet Pheresis Lp Irr 2nd 400 / 400 Unit [id number] Output: Catheter 475 / 475 Other: Meal Dinner Percent of Meal Consumed 100% Weight 99.6 kg Blood Glucose* 289 160 Patient Weight 11/07/17 23:59 Weight 99.6 kg - General Appearance General appearance: Present: appears started age, obese Neck: Present: supple Respiratory: Present: wheezing (expiratory) Cardiology: Present: regular rate, regular rhythm Gastrointestinal: Present: normoactive bowel sounds, obese, distended Integumentary: Present: warm and dry Neurologic: Present: alert and oriented x3 Psychiatric: Present: mood/affect appropriate - Lab 11/07/17 04:25 11/07/17 04:25 Most recent lab results Calcium 9.0 mg/dL (8.6-10.3) 11/07/17 04:25 Phosphorus 4.7 mg/dL (2.7-4.5) H 11/01/17 04:47 Magnesium 2.1 mg/dL (1.6-2.6) 11/01/17 04:47 Urine Creatinine 98 mg/dL 10/31/17 05:45 Urine Sodium 26.3 mEq/L 11/03/17 16:08 Urine Total Protein 76 mg/dL (1-14) H 10/31/17 05:45 Consult Discharge Plan - Plan Instructions: Cirrhosis (GEN), Ascites (GEN) Referrals: Rashawn Michaels MD [Non-Partnered Physician] - 12/05/17 3:00 pm (Please follow up a sschedule...) Ramon Valderrama DO [Partnered Physician] - Hero Ramirez MD [Partnered Physician] - Prescriptions: amLODIPine [Norvasc] 5 mg PO DAILY 5 Days #5 tablet Budesonide/Formoterol 160/4.5 [Symbicort 160/4.5] 2 puff IH BIDR #1 inhaler Propranolol [Inderal] 20 mg PO BID #10 tablet <Aniya Robb - Last Filed: 12/06/17 22:26> Date of Encounter: 11/07/17 - Assessment and Plan (1) Acute kidney injury superimposed on chronic kidney disease Status: Acute (2) Cirrhosis of liver with ascites Status: Acute Qualifiers: Hepatic cirrhosis type: unspecified hepatic cirrhosis Qualified Code(s): K74.60 - Unspecified cirrhosis of liver (3) Pancytopenia Status: Acute Objective - Lab 11/26/17 04:00 11/26/17 04:00 Most recent lab results Calcium 9.1 mg/dL (8.6-10.3) 11/26/17 04:00 Phosphorus 4.4 mg/dL (2.7-4.5) 11/20/17 12:44 Magnesium 1.9 mg/dL (1.6-2.6) 11/24/17 03:53 Urine Creatinine 98 mg/dL 10/31/17 05:45 Urine Sodium 26.3 mEq/L 11/03/17 16:08 Urine Total Protein 76 mg/dL (1-14) H 10/31/17 05:45 - Attending Attestation I examined this patient and my medical decision-making was reviewed with the Resident Physician. I agree with the documented findings, disposition and treatment plan as described except to the extent set forth below. Pt seen and examined with no new complaint. Abd remain distended and LE with edema. SCr continues to worsen despite albumin at 3.28, GFR 14. No acute indication for SIFTER AND MILLER today but suspect if no improvement soon may need this hospital stay. Continue to avoid nephrotoxins if possible. Pancytopenia problematic for interventions like paracentesis, line placement etc without plts and FFP transfusions.
[2017-11-07] MEDS: Budesonide/Formoterol 160/4.5 MDI IH SCH ×2 (08:16→20:23)
--- NOTE | 2017-11-07 08:17 | Gastroenterology Progress Note ---
<KaidenmaicolTalon - Last Filed: 11/07/17 17:20> Date of Encounter: 11/07/17 Time of Encounter: 08:15 - Assessment and plan (1) Hepatorenal syndrome Current Visit: Yes Status: Acute Assessment and plan: Type 2 hepatorenal syndrome in the setting of CKD, ANTONIO with ascites that is resistant to diuretics. Meld NA 26, Child frost 9 points corresponding to Child Class B with indication for liver transplant evaluation vs. TIPS procedure. Abdominal surgery reina-operative mortality: 30% Patient given initial treatment with a combination of Midodrine, Octreotide, and Albumin. In patients who fail to respond to medical therapy with the above regimen and who are considered well enough to undergo the procedure, transjugular intrahepatic portosystemic shunt (TIPS) is sometimes successful. However, this procedure is associated with numerous complications and, because of the need for intravenous contrast, it may cause acute kidney injury. For this reason, some experts prefer dialysis as a first option (continuous renal replacement therapy) in most cases, particularly for patients whose serum creatinine remains above 1.5 mg/dL despite medical therapy. Avoid diuretics In patients who fail to respond to the above therapies, develop severely impaired renal function, and either are candidates for liver transplantation or have a reversible form of liver injury and are expected to survive, consider dialysis as a bridge to liver transplantation or liver recovery. (2) Liver cirrhosis secondary to nonalcoholic steatohepatitis (HENRIQUEZ) Current Visit: No Status: Chronic Assessment and plan: Decompensated cirrhosis with portal hypertension and ascites. Meld NA 26, Child frost 9 points corresponding to Child Class B with indication for transplant evaluation vs. TIPS procedure. Abdominal surgery reina-operative mortality: 30% AFP was 2, Hepatitis panel negative. (3) Acute kidney injury Current Visit: Yes Status: Acute Assessment and plan: Avoid diuretics due to HRS (4) Hypersplenism Current Visit: Yes Status: Chronic Assessment and plan: Hypersplenism/ thrombocytopenia 3 units platelets transfused (5) Gastric varices without bleeding Current Visit: Yes Status: Chronic Assessment and plan: Secondary to liver disease/portal HTN Patient was started on Propranolol 11/07/17 - Time Spent With Patient Total time spent is greater than 50% in coordination of care (as documented) at patient's floor/unit and/or counseling patient: - Subjective Interval history: Patient is seen and examined. Patient denies any new complaints. - Constitutional Vitals: Temp Pulse Resp BP Pulse Ox 97.7 F 77 18 158/68 93 11/07/17 07:30 11/07/17 07:30 11/07/17 07:30 11/07/17 07:30 11/07/17 07:30 General appearance: Present: cooperative, A&O X 3, no acute distress, obese, answers questions appropriately - Head Head exam: Present: atraumatic, normocephalic - Eye Eye exam: Present: normal appearance, sclera anicteric - ENT ENT exam: Present: mucous membranes moist, normal oropharynx - Neck Neck exam general surgery: Present: normal inspection, trachea midline - Respiratory Respiratory exam: Present: CTAB - Cardiovascular Cardiovascular exam: Present: RRR, +S1, +S2 - GI/Abdominal GI/Abdominal exam: Present: distended, normal bowel sounds, soft, no peritoneal signs. Absent: tenderness - Rectal Rectal exam: Present: deferred - Extremities Exam Extremities exam: Present: warm. Absent: pedal edema - Neurological Exam Neurological exam: Present: oriented X3, no focal deficits - Psychiatric Psychiatric exam: Present: normal affect, normal mood - Skin Skin exam: Present: dry, intact, normal color, warm Results - Labs CBC & Chem 7: 11/07/17 16:04 11/07/17 04:25 Labs: Last Result Calcium 9.0 mg/dL (8.6-10.3) 11/07/17 04:25 Iron 52 mcg/dL (50-170) 11/01/17 04:47 % Saturation 19 % (15-50) 11/01/17 04:47 Transferrin 192 mg/dL (203-362) L 11/01/17 04:47 Ferritin 81 ng/ml (10-120) 11/01/17 04:47 Vitamin B12 1163 pg/mL (250-1100) H 11/01/17 04:47 Folate > 22.3 ng/mL (3.0-16.0) H 11/01/17 04:47 Entire Visit Hgb 8.3 g/dL (11.5-15.4) L 11/07/17 04:25 Hct 24.7 % (35.3-44.9) L 11/07/17 04:25 Haptoglobin <10 mg/dL (30-200) L 11/02/17 04:32 PT 18.3 Seconds (9.4-12.1) H 11/05/17 06:33 Ferritin 81 ng/ml (10-120) 11/01/17 04:47 Total Bilirubin 2.2 mg/dL (0.3-1.0) H 10/31/17 05:29 AST 29 Units/L (13-39) 10/31/17 05:29 ALT 16 Units/L (7-52) 10/31/17 05:29 Folate > 22.3 ng/mL (3.0-16.0) H 11/01/17 04:47 - ABG ABG results: PT/INR, D-dimer PT 18.3 Seconds (9.4-12.1) H 11/05/17 06:33 Consult Discharge Plan - Plan Referrals: Rashawn Michaels MD [Non-Partnered Physician] - 12/05/17 3:00 pm (Please follow up a sschedule...) Prescriptions: amLODIPine [Norvasc] 5 mg PO DAILY 5 Days #5 tablet Budesonide/Formoterol 160/4.5 [Symbicort 160/4.5] 2 puff IH BIDR #1 inhaler Propranolol [Inderal] 20 mg PO BID #10 tablet <Mayur Hsieh - Last Filed: 11/26/17 07:29> Date of Encounter: 11/07/17 - Time Spent With Patient Total time spent is greater than 50% in coordination of care (as documented) at patient's floor/unit and/or counseling patient: - Constitutional Vitals: Temp Pulse Resp BP Pulse Ox 98.5 F 59 17 129/73 95 11/26/17 04:59 11/26/17 04:59 11/26/17 04:59 11/26/17 04:59 11/26/17 04:59 Results - Labs CBC & Chem 7: 11/26/17 04:00 11/26/17 04:00 Labs: Last Result Calcium 9.1 mg/dL (8.6-10.3) 11/26/17 04:00 Iron 52 mcg/dL (50-170) 11/01/17 04:47 % Saturation 19 % (15-50) 11/01/17 04:47 Transferrin 192 mg/dL (203-362) L 11/01/17 04:47 Ferritin 81 ng/ml (10-120) 11/01/17 04:47 Vitamin B12 1163 pg/mL (250-1100) H 11/01/17 04:47 Folate > 22.3 ng/mL (3.0-16.0) H 11/01/17 04:47 Entire Visit Hgb 7.8 g/dL (11.5-15.4) L 11/26/17 04:00 Hct 23.6 % (35.3-44.9) L 11/26/17 04:00 Haptoglobin <10 mg/dL (30-200) L 11/02/17 04:32 PT 16.7 Seconds (9.4-12.1) H 11/20/17 05:56 Ferritin 81 ng/ml (10-120) 11/01/17 04:47 Total Bilirubin 2.7 mg/dL (0.3-1.0) H 11/24/17 03:53 AST 22 Units/L (13-39) 11/24/17 03:53 ALT 12 Units/L (7-52) 11/24/17 03:53 Folate > 22.3 ng/mL (3.0-16.0) H 11/01/17 04:47 - ABG ABG results: PT/INR, D-dimer PT 16.7 Seconds (9.4-12.1) H 11/20/17 05:56 - Attending Attestation I examined this patient and my medical decision-making was reviewed with the Resident Physician. I agree with the documented findings, disposition and treatment plan as described except to the extent set forth below.
[2017-11-07] MEDS: Insulin LISPRO 300 UNITS/3 ML VIAL SQ SCH ×6 (08:49→21:15)
[2017-11-07] MEDS: amLODIPine 5 MG TABLET PO SCH (08:54)
[2017-11-07] MEDS: predniSONE 20 MG TABLET PO SCH (08:54)
[2017-11-07] MEDS ORDERED: 0.9 % Sodium Chloride 250 ML ONE ×2 (09:51→12:04)
--- NOTE | 2017-11-07 12:21 | Internal Med Progress Note ---
Date of Encounter: 11/07/17 Time of Encounter: 12:18 - Assessment and plan (1) Diabetes mellitus type 2 in obese Current Visit: Yes Status: Chronic Assessment and plan: FS ACHS Continue insulin, ADA diet (2) Acute respiratory failure with hypoxia Current Visit: Yes Status: Acute Assessment and plan: atient still requiring oxygen, with some mild respiratory distress Paracentesis partially relieved symptoms but she is still requiring O2 Possibly left pleural effusion contributing to this CXR today 11/07 with pulmonary edema and possible pneumonia IR was unable to do thoracentesis because platelets <50k. Will give patient more pooled platelets Continue supplemental O2 as needed - wean as tolerated Improving with Prednisone Continue Prednisone 20 mg daily for 5 days and monitor for improvement. with Duo neb therapy prn. Add levaquin for PNA (3) Active asthma Current Visit: Yes Status: Chronic Assessment and plan: as above (4) Thrombocytopenia Current Visit: Yes Status: Chronic Assessment and plan: PLT improved to 33 We will give 2 more units of platelets today Goal is 50,000 for paracentensis and thoracentensis, as well as placement of temporary catheter for hemodialysis. Continue to monitor No current evidence of bleeding Heme/Onc noted-B12 folate TSH normal, Her hematological problems cannot be reversed given end-stage liver disease. (5) DVT prophylaxis Current Visit: Yes Status: Acute Assessment and plan: SCDs (6) Hypertension Current Visit: Yes Status: Chronic Assessment and plan: Elevated blood pressure on arrival, required 2 doses of hydralazine, continue to monitor Qualifiers: Hypertension type: essential hypertension Qualified Code(s): I10 - Essential (primary) hypertension (7) Depression Current Visit: Yes Status: Chronic Assessment and plan: continue home meds Qualifiers: Depression Type: major depressive disorder Major depression recurrence: recurrent Active/Remission status: currently active Major depression episode severity: unspecified Qualified Code(s): F33.9 - Major depressive disorder, recurrent, unspecified (8) Cirrhosis of liver with ascites Current Visit: Yes Status: Acute Assessment and plan: 72-year-old female with diabetes, hypertension and liver cirrhosis 2/2 to HENRIQUEZ presenting with SOB and abdominal ascites. No fever, abdominal pain or tenderness or Altered mental status on exam. Child-Shaffer Classification Score: 9 (AO x 3, Ascites, Luis < 2 mg/dL, Albumin < 2.8, INR < 1.7). Dietary education, 2 g per day sodium restricted diet - 4 L fluid removed on paracentesis on 11/01 -Ascites hs recollected - GI consulted, recommendations appreciated : Noted that she may require TIPS procedure if this is recurrent issue. -For paracentensis when PLT >50K -No diuretics due to ANTONIO on CKD, Hepatorenal syndrome Qualifiers: Hepatic cirrhosis type: unspecified hepatic cirrhosis Qualified Code(s): K74.60 - Unspecified cirrhosis of liver (9) Hepatorenal syndrome Current Visit: Yes Status: Acute Assessment and plan: management per renal Not on any diuretics at this time (10) Acute kidney injury superimposed on chronic kidney disease Current Visit: Yes Status: Acute Assessment and plan: Not improving renal following We will follow their recommendations (11) Fall Current Visit: Yes Status: Acute Assessment and plan: PT.OT eliecer noted- for home health CT head negative Fall precautions Qualifiers: Encounter type: initial encounter Qualified Code(s): W19.XXXA - Unspecified fall, initial encounter (12) Hypersplenism Current Visit: Yes Status: Chronic Assessment and plan: as in liver disease (13) Pancytopenia Current Visit: Yes Status: Acute Assessment and plan: as in thrombocytopenia, continue to monitor RBC transfusion for HB <7 (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 Current Visit: Yes Status: Chronic Assessment and plan: secondary to liver disease/portal HTN Start patient on propranolol today 11/07 (15) Pleural effusion, left Current Visit: Yes Status: Acute Assessment and plan: Moderate size as seen on CT chest Patient had paracentesis 11/01 removed 4 L ascitic fluid from abdomen Monitor respiratory status and I/Os, For thoracentensis after PLT transfusion Continue O2 supplementation (16) Pneumonia Current Visit: Yes Status: Suspected Assessment and plan: Suspected chest x-ray. Patient has no cough, however she has been hypoxic and requiring higher doses of oxygen. Start patient on Levaquin, renally adjusted. Continue oxygen supplementation by nasal cannula. Qualifiers: Pneumonia type: due to unspecified organism Laterality: bilateral Lung location: unspecified part of lung Qualified Code(s): J18.9 - Pneumonia, unspecified organism (17) CHF (congestive heart failure) Current Visit: Yes Status: Acute Assessment and plan: Patient with peristent and worsening hypoxia CXR today 11/07 noted for suspected acute CHF Patient cannot tolerate diuretics due to worsening renal function Continue O2 supplementation Per renal documentation, she may require HD in this admission Qualifiers: Heart failure type: diastolic Heart failure chronicity: acute on chronic Qualified Code(s): I50.33 - Acute on chronic diastolic (congestive) heart failure - Time Spent With Patient Total time spent is greater than 50% in coordination of care (as documented) at patient's floor/unit and/or counseling patient: - Subjective Interval history: Seen and evaluated at the bedside She is being managed for decompensated liver cirrhosis with ascites, pleural effusion, Type II heptorenal syndrome, ANTONIO on CKD, She also has pancytopenai with PLT <30,000 which has precluded her from getting any procedures PLT this morning, improving, I spoke with blood bank and requested 2 more units of PLTs She is s/p paracentensis with 4L removed 11/01 She has no new complains, she is ambulatory Her renal function continues to worsen Repeat CXR done today 11/07 shows possible pneumonia vs acute CHF Gastroenterology, nephrology are following - Constitutional Vitals: Temp Pulse Resp BP Pulse Ox 98.6 F 79 18 154/74 88 11/07/17 12:09 11/07/17 12:09 11/07/17 12:09 11/07/17 12:11/07/17 12:09 General appearance: Present: cooperative, A&O X 3, morbidly obese, no acute distress, answers questions appropriately - Head Head exam: Present: atraumatic, normocephalic - Eye Eye exam: Present: PERRL, conjuntiva pink, sclera anicteric Pupils: Present: PERRL - Neck Neck exam general surgery: Present: supple, trachea midline. Absent: lymphadenopathy - Respiratory Respiratory exam: Present: decreased breath sounds (bibasally) - Cardiovascular Cardiovascular exam: Present: RRR, +S1, +S2. Absent: diastolic murmur, gallop, rubs, systolic murmur - GI/Abdominal GI/Abdominal exam: Present: distended (ascites+), normal bowel sounds, soft, no peritoneal signs. Absent: tenderness - Extremities Exam Extremities exam: Absent: pedal edema Additional comments: multiple bruises - Neurological Exam Neurological exam: Present: alert, CN II-XII intact, oriented X3, no focal deficits. Absent: pronater drift, facial droop, speech deficit - Skin Skin exam: Present: dry, petechiae Internal Medicine: Result - Labs CBC & Chem 7: 11/07/17 04:25 11/07/17 04:25 Labs: Short CBC 11/07/17 Range/Units 04:25 WBC 2.4 L (4.3-11.1) K/mcL Hgb 8.3 L (11.5-15.4) g/dL Hct 24.7 L (35.3-44.9) % Plt Count 33 L (140-400) K/mcL Neutrophils # 2.0 (1.6-8.9) K/mcL BMP 11/07/17 04:25 Sodium 134 L Potassium 4.4 Chloride 104 Carbon Dioxide 20 L BUN 109 H Creatinine 3.28 H Glucose 126 H Calcium 9.0 - ABG Interpretation ABG results: PT/INR, D-dimer PT 18.3 Seconds (9.4-12.1) H 11/05/17 06:33 - Impressions Impressions Chest X-Ray 11/07/17 08:10 IMPRESSION: Cardiomegaly and bilateral diffuse interstitial and alveolar opacities which may represent acute congestive heart failure versus possible atypical pneumonia. D/ / 11/07/2017 08:35:17 Jaiden Bland MD / Daniella Frank Interpreting Provider: Jaiden Bland MD Consult Discharge Plan - Plan Referrals: Rashawn Michaels MD [Non-Partnered Physician] - 11/13/17 3:15 pm
[2017-11-07] MEDS: levoFLOXacin 500 MG TABLET PO SCH (12:25)
[2017-11-07 17:01] LABS: Eosinophils % 0.3 %; Hemoglobin 8.4 g/dL (11.5-15.4)
[2017-11-07 17:03] LABS: Immature Granulocytes % 0.3 % (0-4); Immature Platelets 2.2 % (1.1-6.1); Lymphocytes # 0.2 K/mcL (0.6-4.6); Lymphocytes % 5.8 %; Mean Corpuscular HGB Conc 33.6 g/dL (31.6-35.5); Mean Corpuscular Hemoglobin 32.4 pg (28.0-33.3); Mean Corpuscular Volume 96.5 fL (83.0-100.0); Monocytes # 0.2 K/mcL (0.0-1.3); Monocytes % 7.1 %; Neutrophils # 2.7 K/mcL (1.6-8.9); Red Blood Count 2.59 M/mcL (3.82-4.97); Red Cell Distribution Width 16.3 % (11.5-14.5); Segmented Neutrophils % 86.5 %
[2017-11-07 17:13] LABS: Platelet Count 46 K/mcL (140-400)
[2017-11-07 17:56] LABS: Platelet Estimate Decreased (Normal)
[2017-11-07] MEDS: Insulin DETEMIR 100 UNIT/ML X5UNITS SQ SCH (21:15)
[2017-11-08] MEDS: Ondansetron 4 MG/2 ML VIAL IVP PRN (05:09)
[2017-11-08 05:35] LABS: Hematocrit 26.7 % (35.3-44.9); Hemoglobin 8.9 g/dL (11.5-15.4); Immature Granulocytes % 0.6 % (0-4); Immature Platelets 1.7 % (1.1-6.1); Lymphocytes # 0.3 K/mcL (0.6-4.6); Lymphocytes % 8.2 %; Mean Corpuscular HGB Conc 33.3 g/dL (31.6-35.5); Mean Corpuscular Hemoglobin 32.2 pg (28.0-33.3); Mean Corpuscular Volume 96.7 fL (83.0-100.0); Mean Platelet Volume 10.3 fL (9.4-12.4); Monocytes # 0.3 K/mcL (0.0-1.3); Monocytes % 8.5 %; Neutrophils # 2.8 K/mcL (1.6-8.9); Nucleated Red Blood Cells 0.6 /100 WBC (0); Red Blood Count 2.76 M/mcL (3.82-4.97); Red Cell Distribution Width 16.5 % (11.5-14.5); Segmented Neutrophils % 82.7 %
[2017-11-08 05:38] LABS: Platelet Count 42 K/mcL (140-400)
[2017-11-08 05:53] LABS: Albumin 3.8 g/dL (3.5-5.7); Albumin/Globulin Ratio 1.6 (1.1-2.2); Bilirubin,Total 2.5 mg/dL (0.3-1.0); Calcium 9.1 mg/dL (8.6-10.3); Globulin 2.4 g/dL (2.4-3.5); Potassium 4.7 mEq/L (3.5-5.1); Total Protein 6.2 g/dL (6.4-8.9)
[2017-11-08] MEDS: amLODIPine 5 MG TABLET PO SCH (08:24)
[2017-11-08] MEDS: predniSONE 20 MG TABLET PO SCH (08:24)
[2017-11-08] MEDS: Insulin LISPRO 300 UNITS/3 ML VIAL SQ SCH ×7 (08:25→21:45)
--- NOTE | 2017-11-08 08:28 | Nephrology Progress Note ---
<Obdulio Dotson - Last Filed: 11/08/17 14:13> Date of Encounter: 11/08/17 Time of Encounter: 08:28 - Assessment and Plan (1) Acute kidney injury Status: Acute Patient denies hx of CKD. on chart review, Cr baseline is ~1. On admission Cr 2.03 and BUN 62. Patient Cr continues to decline. GFR in the past has been 44- 60, most likely has CKD. Will need further outpatient nephro workup once discharged. ANTONIO is most likely due to prerenal Azotemia in the setting of cirrhosis/ascites. patient has pancytopenia, most likely in the setting of cirrhosis. Patient has protein in urine, if kidney function recovers patient may consider ACEI/ARB. Patient remains pancytopenic. Patient had good urine output in the last 24 hours. - Patient will receive paracentesis by IR today - Temp Cath order placed for temporary HD tomorrow - will closely monitor Cr - renal diet - avoid nephrotoxins - renal dosing - strict I/O (2) Cirrhosis of liver with ascites Status: Acute per primary team Qualifiers: Hepatic cirrhosis type: unspecified hepatic cirrhosis Qualified Code(s): K74.60 - Unspecified cirrhosis of liver (3) Heart murmur Status: Acute on exam, patient has 2/5 systolic heart murmur on 2nd L IC, and 1+ bilateral pitting edema. Patient reports recently feeling SOB. Patient has no hx of heart disease, but concerned for possible CHF. - echo LVEF read as 60-65% Subjective Principal diagnosis: antonio on ckd Interval history: Ms Shaffer is a 72 yo F w/ pmh of cirrhosis, asthma, diabetes, HTN presents with ANTONIO. Nephrology is consulted for ANTONIO. Patient is seen and examined. Patient says her stomach feels a little bigger today. Patient has no new complaints. Patient denies cp, sob, n/v, abdominal pain, f/c. Patient reseen at 1:30 PM. Discussed Temp cath placement scheduled today, patient is aware that she will receive temp cath today, and HD tomorrow. Objective - Vital Signs Vital signs: Vital Signs Temp Pulse Resp BP Pulse Ox 11/08/17 08:10 96 11/08/17 07:52 97.6 F 109 17 123/64 96 11/08/17 03:43 97.7 F 56 15 126/61 92 11/08/17 00:04 97.5 F L 53 16 104/52 97 11/07/17 21:15 97.7 F 60 16 144/77 94 11/07/17 20:55 93 11/07/17 20:23 20 93 11/07/17 14:55 98.7 F 78 20 169/76 89 11/07/17 12:21 98.8 F 78 18 173/78 88 11/07/17 12:09 98.6 F 79 18 154/74 88 11/07/17 11:56 98.6 F 79 18 154/74 88 11/07/17 10:00 97.6 F 75 18 156/66 94 11/07/17 09:02 89 11/07/17 09:01 89 Intake and Output 11/07/17 11/08/17 11/08/17 23:59 07:59 15:59 Intake Total 0 / 0 0 / 0 Output Total 350 / 350 150 / 150 Balance -350 / -350 -150 / -150 Intake: Oral 0 / 0 0 / 0 Output: Catheter 350 / 350 150 / 150 Other: Stool Size Moderate Stool Consistency formed Stool Characteristics Normal for Patient Stool Color Brown Blood Glucose* 171 172 - General Appearance General appearance: Present: appears started age, obese Neck: Present: supple Cardiology: Present: edema (1+ BLE), regular rate, regular rhythm Gastrointestinal: Present: normoactive bowel sounds, distended Integumentary: Present: warm and dry Neurologic: Present: alert and oriented x3 Psychiatric: Present: mood/affect appropriate, cooperative - Lab 11/08/17 04:59 11/08/17 04:59 Most recent lab results Calcium 9.1 mg/dL (8.6-10.3) 11/08/17 04:59 Phosphorus 4.7 mg/dL (2.7-4.5) H 11/01/17 04:47 Magnesium 2.1 mg/dL (1.6-2.6) 11/01/17 04:47 Urine Creatinine 98 mg/dL 10/31/17 05:45 Urine Sodium 26.3 mEq/L 11/03/17 16:08 Urine Total Protein 76 mg/dL (1-14) H 10/31/17 05:45 Consult Discharge Plan - Plan Instructions: Cirrhosis (GEN), Ascites (GEN) Referrals: Rashawn Michaels MD [Non-Partnered Physician] - 12/05/17 3:00 pm (Please follow up a sschedule...) Ramon Valderrama DO [Partnered Physician] - Hero Ramirez MD [Partnered Physician] - Prescriptions: amLODIPine [Norvasc] 5 mg PO DAILY 5 Days #5 tablet Budesonide/Formoterol 160/4.5 [Symbicort 160/4.5] 2 puff IH BIDR #1 inhaler Propranolol [Inderal] 20 mg PO BID #10 tablet <ThuhenryaddieAniya Matthew - Last Filed: 12/06/17 23:24> Date of Encounter: 11/08/17 - Assessment and Plan (1) Acute kidney injury superimposed on chronic kidney disease Status: Acute (2) Cirrhosis of liver with ascites Status: Acute Qualifiers: Hepatic cirrhosis type: unspecified hepatic cirrhosis Qualified Code(s): K74.60 - Unspecified cirrhosis of liver (3) Pancytopenia Status: Acute Objective - Lab 11/26/17 04:00 11/26/17 04:00 Most recent lab results Calcium 9.1 mg/dL (8.6-10.3) 11/26/17 04:00 Phosphorus 4.4 mg/dL (2.7-4.5) 11/20/17 12:44 Magnesium 1.9 mg/dL (1.6-2.6) 11/24/17 03:53 Urine Creatinine 98 mg/dL 10/31/17 05:45 Urine Sodium 26.3 mEq/L 11/03/17 16:08 Urine Total Protein 76 mg/dL (1-14) H 10/31/17 05:45 - Attending Attestation I examined this patient and my medical decision-making was reviewed with the Resident Physician. I agree with the documented findings, disposition and treatment plan as described except to the extent set forth below. Pt seen and examined with worsening abdominal distention. SCr still worsening at 3.42, GFR 13. UOP remains poor. Will plan to place temp IJ HD line today at some point once pt transfused appropriately with plts and FFP per IR specifications. Plan to dialyzed by tomorrow. Pt aware of plans and agrees to proceed.
--- NOTE | 2017-11-08 09:00 | Gastroenterology Progress Note ---
<BereniceTalon - Last Filed: 11/08/17 10:33> Date of Encounter: 11/08/17 Time of Encounter: 08:57 - Assessment and plan (1) Hepatorenal syndrome Current Visit: Yes Status: Acute Assessment and plan: Type 2 hepatorenal syndrome in the setting of CKD, ANTONIO with ascites that is resistant to diuretics. Meld NA 26, Child frost 9 points corresponding to Child Class B with indication for liver transplant evaluation vs. TIPS procedure. Abdominal surgery reina-operative mortality: 30% Patient given initial treatment with a combination of Midodrine, Octreotide, and Albumin. In patients who fail to respond to medical therapy with the above regimen and who are considered well enough to undergo the procedure, transjugular intrahepatic portosystemic shunt (TIPS) is sometimes successful. However, this procedure is associated with numerous complications and, because of the need for intravenous contrast, it may cause acute kidney injury. For this reason, some experts prefer dialysis as a first option (continuous renal replacement therapy) in most cases, particularly for patients whose serum creatinine remains above 1.5 mg/dL despite medical therapy. Avoid diuretics In patients who fail to respond to the above therapies, develop severely impaired renal function, and either are candidates for liver transplantation or have a reversible form of liver injury and are expected to survive, consider dialysis as a bridge to liver transplantation or liver recovery. Patient is NPO awaiting paracentesis today (2) Liver cirrhosis secondary to nonalcoholic steatohepatitis (HENRIQUEZ) Current Visit: No Status: Chronic Assessment and plan: Decompensated cirrhosis with portal hypertension and ascites. Meld NA 26, Child frost 9 points corresponding to Child Class B with indication for transplant evaluation vs. TIPS procedure. Abdominal surgery reina-operative mortality: 30% AFP was 2, Hepatitis panel negative. (3) Acute kidney injury Current Visit: Yes Status: Acute Assessment and plan: Avoid diuretics due to HRS (4) Hypersplenism Current Visit: Yes Status: Chronic Assessment and plan: Hypersplenism/ thrombocytopenia 5 units platelets transfused (5) Gastric varices without bleeding Current Visit: Yes Status: Chronic Assessment and plan: Secondary to liver disease/portal HTN Patient was started on Propranolol 11/07/17 - Time Spent With Patient Total time spent is greater than 50% in coordination of care (as documented) at patient's floor/unit and/or counseling patient: - Subjective Interval history: Patient seen and examined resting comfortably in bedside chair. Patient reports nausea this AM and is NPO awaiting paracentesis today. - Constitutional Vitals: Temp Pulse Resp BP Pulse Ox 97.6 F 109 17 123/64 96 11/08/17 07:52 11/08/17 07:52 11/08/17 07:52 11/08/17 07:52 11/08/17 08:10 General appearance: Present: cooperative, A&O X 3, no acute distress, obese, answers questions appropriately - Head Head exam: Present: atraumatic, normocephalic - Eye Eye exam: Present: normal appearance, sclera anicteric - ENT ENT exam: Present: mucous membranes dry, normal oropharynx - Neck Neck exam general surgery: Present: normal inspection, trachea midline - Respiratory Respiratory exam: Present: decreased breath sounds - Cardiovascular Cardiovascular exam: Present: RRR, +S1, +S2 - GI/Abdominal GI/Abdominal exam: Present: distended, normal bowel sounds, soft, no peritoneal signs. Absent: tenderness - Rectal Rectal exam: Present: deferred - Extremities Exam Extremities exam: Present: warm. Absent: pedal edema - Neurological Exam Neurological exam: Present: oriented X3, no focal deficits - Psychiatric Psychiatric exam: Present: normal affect, normal mood - Skin Skin exam: Present: dry, intact, warm Results - Labs CBC & Chem 7: 11/08/17 04:59 11/08/17 04:59 Labs: Last Result Calcium 9.1 mg/dL (8.6-10.3) 11/08/17 04:59 Iron 52 mcg/dL (50-170) 11/01/17 04:47 % Saturation 19 % (15-50) 11/01/17 04:47 Transferrin 192 mg/dL (203-362) L 11/01/17 04:47 Ferritin 81 ng/ml (10-120) 11/01/17 04:47 Vitamin B12 1163 pg/mL (250-1100) H 11/01/17 04:47 Folate > 22.3 ng/mL (3.0-16.0) H 11/01/17 04:47 Entire Visit Hgb 8.9 g/dL (11.5-15.4) L 11/08/17 04:59 Hct 26.7 % (35.3-44.9) L 11/08/17 04:59 Haptoglobin <10 mg/dL (30-200) L 11/02/17 04:32 PT 18.3 Seconds (9.4-12.1) H 11/05/17 06:33 Ferritin 81 ng/ml (10-120) 11/01/17 04:47 Total Bilirubin 2.5 mg/dL (0.3-1.0) H 11/08/17 04:59 AST 18 Units/L (13-39) 11/08/17 04:59 ALT 11 Units/L (7-52) 11/08/17 04:59 Folate > 22.3 ng/mL (3.0-16.0) H 11/01/17 04:47 - ABG ABG results: PT/INR, D-dimer PT 18.3 Seconds (9.4-12.1) H 11/05/17 06:33 Consult Discharge Plan - Plan Referrals: Rashawn Michaels MD [Non-Partnered Physician] - 12/05/17 3:00 pm (Please follow up a sschedule...) Prescriptions: amLODIPine [Norvasc] 5 mg PO DAILY 5 Days #5 tablet Budesonide/Formoterol 160/4.5 [Symbicort 160/4.5] 2 puff IH BIDR #1 inhaler Propranolol [Inderal] 20 mg PO BID #10 tablet <Mayur Hsieh - Last Filed: 11/26/17 07:47> Date of Encounter: 11/08/17 - Time Spent With Patient Total time spent is greater than 50% in coordination of care (as documented) at patient's floor/unit and/or counseling patient: - Constitutional Vitals: Temp Pulse Resp BP Pulse Ox 98.1 F 59 18 131/63 97 11/26/17 07:15 11/26/17 07:15 11/26/17 07:15 11/26/17 07:15 11/26/17 07:15 Results - Labs CBC & Chem 7: 11/26/17 04:00 11/26/17 04:00 Labs: Last Result Calcium 9.1 mg/dL (8.6-10.3) 11/26/17 04:00 Iron 52 mcg/dL (50-170) 11/01/17 04:47 % Saturation 19 % (15-50) 11/01/17 04:47 Transferrin 192 mg/dL (203-362) L 11/01/17 04:47 Ferritin 81 ng/ml (10-120) 11/01/17 04:47 Vitamin B12 1163 pg/mL (250-1100) H 11/01/17 04:47 Folate > 22.3 ng/mL (3.0-16.0) H 11/01/17 04:47 Entire Visit Hgb 7.8 g/dL (11.5-15.4) L 11/26/17 04:00 Hct 23.6 % (35.3-44.9) L 11/26/17 04:00 Haptoglobin <10 mg/dL (30-200) L 11/02/17 04:32 PT 16.7 Seconds (9.4-12.1) H 11/20/17 05:56 Ferritin 81 ng/ml (10-120) 11/01/17 04:47 Total Bilirubin 2.7 mg/dL (0.3-1.0) H 11/24/17 03:53 AST 22 Units/L (13-39) 11/24/17 03:53 ALT 12 Units/L (7-52) 11/24/17 03:53 Folate > 22.3 ng/mL (3.0-16.0) H 11/01/17 04:47 - ABG ABG results: PT/INR, D-dimer PT 16.7 Seconds (9.4-12.1) H 11/20/17 05:56 - Attending Attestation I examined this patient and my medical decision-making was reviewed with the Resident Physician. I agree with the documented findings, disposition and treatment plan as described except to the extent set forth below.
[2017-11-08] MEDS: Budesonide/Formoterol 160/4.5 MDI IH SCH ×2 (10:51→23:04)
[2017-11-08] MEDS ORDERED: 0.9 % Sodium Chloride 250 ML ONE ×2 (10:58→15:52)
--- NOTE | 2017-11-08 11:24 | Internal Med Progress Note ---
Date of Encounter: 11/08/17 Time of Encounter: 10:15 - Assessment and plan (1) Diabetes mellitus type 2 in obese Current Visit: Yes Status: Chronic Assessment and plan: FS ACHS Continue insulin, ADA diet (2) Acute respiratory failure with hypoxia Current Visit: Yes Status: Acute Assessment and plan: patient still requiring oxygen, NO more resp distress O2 requirement slowly improving, now on 5 L from 10L Multifactorial: Ascites/COPDE/Pneumonia/Pulm edema CXR 11/07 with pulmonary edema and possible pneumonia IR was unable to do thoracentesis -no effusion noted on CXR of 11/[address] done earlier. Continue supplemental O2 as needed - wean as tolerated Continue Prednisone 20 mg daily for 5 days and monitor for improvement. with Duo neb therapy prn. Continue levaquin-Day 2 (3) Active asthma Current Visit: Yes Status: Chronic Assessment and plan: as above (4) Thrombocytopenia Current Visit: Yes Status: Chronic Assessment and plan: PLT improved to 42 s/p 3 units GIve 2 more units this a.m Goal is 50,000 for placement of temporary catheter for hemodialysis. Continue to monitor No current evidence of bleeding Heme/Onc noted-B12 folate TSH normal, Her hematological problems cannot be reversed given end-stage liver disease. (5) DVT prophylaxis Current Visit: Yes Status: Acute Assessment and plan: SCDs (6) Hypertension Current Visit: Yes Status: Chronic Assessment and plan: Continue Norvasc and Propanolol Qualifiers: Hypertension type: essential hypertension Qualified Code(s): I10 - Essential (primary) hypertension (7) Depression Current Visit: Yes Status: Chronic Assessment and plan: continue home meds Qualifiers: Depression Type: major depressive disorder Major depression recurrence: recurrent Active/Remission status: currently active Major depression episode severity: unspecified Qualified Code(s): F33.9 - Major depressive disorder, recurrent, unspecified (8) Cirrhosis of liver with ascites Current Visit: Yes Status: Acute Assessment and plan: 72-year-old female with diabetes, hypertension and liver cirrhosis 2/2 to HENRIQUEZ presenting with SOB and abdominal ascites. No fever, abdominal pain or tenderness or Altered mental status on exam. Child-Shaffer Classification Score: 9 (AO x 3, Ascites, Luis < 2 mg/dL, Albumin < 2.8, INR < 1.7). Dietary education, 2 g per day sodium restricted diet 4 L fluid removed on paracentesis on 11/01 Ascites has recollected, s/p paracentensis today 11/08 with 1.5 L removed No SBP GI consulted, recommendations appreciated : Noted that she may require TIPS procedure if this is recurrent issue. Continue propranolol No diuretics due to ANTONIO on CKD, Hepatorenal syndrome Qualifiers: Hepatic cirrhosis type: unspecified hepatic cirrhosis Qualified Code(s): K74.60 - Unspecified cirrhosis of liver (9) Hepatorenal syndrome Current Visit: Yes Status: Acute Assessment and plan: management per renal Not on any diuretics at this time (10) Acute kidney injury superimposed on chronic kidney disease Current Visit: Yes Status: Acute Assessment and plan: Not improving renal following We will follow their recommendations (11) Fall Current Visit: Yes Status: Acute Assessment and plan: PT.OT eliecer noted- for home health CT head negative Fall precautions Qualifiers: Encounter type: initial encounter Qualified Code(s): W19.XXXA - Unspecified fall, initial encounter (12) Hypersplenism Current Visit: Yes Status: Chronic Assessment and plan: as in liver disease (13) Pancytopenia Current Visit: Yes Status: Acute Assessment and plan: as in thrombocytopenia, continue to monitor RBC transfusion for HB <7 (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 Current Visit: Yes Status: Chronic Assessment and plan: secondary to liver disease/portal HTN Started patient on propranolol 11/07 Continue same (15) Pleural effusion, left Current Visit: Yes Status: Resolved Assessment and plan: Moderate size as seen on CT chest CXR 11/07 with no pleural effusion Continue O2 supplementation (16) Pneumonia Current Visit: Yes Status: Suspected Assessment and plan: Suspected chest x-ray. Patient has no cough, however she has been hypoxic and requiring higher doses of oxygen. Start patient on Levaquin 11/07, renally adjusted. Continue oxygen supplementation by nasal cannula. Qualifiers: Pneumonia type: due to unspecified organism Laterality: bilateral Lung location: unspecified part of lung Qualified Code(s): J18.9 - Pneumonia, unspecified organism (17) CHF (congestive heart failure) Current Visit: Yes Status: Acute Assessment and plan: Patient with peristent and worsening hypoxia CXR today 11/07 noted for suspected acute CHF Patient cannot tolerate diuretics due to worsening renal function Continue O2 supplementation Per renal documentation, she may require HD in this admission Qualifiers: Heart failure type: diastolic Heart failure chronicity: acute on chronic Qualified Code(s): I50.33 - Acute on chronic diastolic (congestive) heart failure - Time Spent With Patient Total time spent is greater than 50% in coordination of care (as documented) at patient's floor/unit and/or counseling patient: - Subjective Interval history: Seen and evaluated at the bedside She is being managed for decompensated liver cirrhosis with ascites, pleural effusion, Type II heptorenal syndrome, ANTONIO on CKD, She also has pancytopenia with PLT <30,000 which has precluded her from getting any procedures She is s/p paracentensis with 4L removed 11/01 She has no new complains, she is ambulatory Her renal function continues to worsen Repeat CXR done 11/07 shows possible pneumonia vs acute CHF, she was started on Levquin She is seen and evaluated during paracentensis today 11/08, 1.5L of fluid was removed Hypoxia is improving on current threrapy Gastroenterology, nephrology are following She is seen and examined at the bedside this morning, and denies new complains, she feel relieved with abdominal distension and she reports her breathing has improved She sits OOB to chair daily - Constitutional Vitals: Temp Pulse Resp BP Pulse Ox 97.6 F 58 20 113/61 93 11/08/17 11:10 11/08/17 11:10 11/08/17 11:10 11/08/17 11:10 11/08/17 11:10 General appearance: Present: cooperative, A&O X 3, morbidly obese, no acute distress, answers questions appropriately - Head Head exam: Present: atraumatic, normocephalic - Eye Eye exam: Present: PERRL, conjuntiva pink, sclera anicteric Pupils: Present: PERRL - Neck Neck exam general surgery: Present: supple, trachea midline. Absent: lymphadenopathy - Respiratory Respiratory exam: Present: decreased breath sounds - Cardiovascular Cardiovascular exam: Present: RRR, +S1, +S2. Absent: diastolic murmur, gallop, rubs, systolic murmur - GI/Abdominal GI/Abdominal exam: Present: normal bowel sounds, soft, no peritoneal signs. Absent: distended, tenderness - Extremities Exam Extremities exam: Present: warm, radial pulses palpable and symmetrical. Absent : calf tenderness, cyanotic, pedal edema - Neurological Exam Neurological exam: Present: alert, CN II-XII intact, oriented X3, no focal deficits. Absent: pronater drift, facial droop, speech deficit - Skin Skin exam: Present: dry, intact Internal Medicine: Result - Labs CBC & Chem 7: 11/08/17 04:59 11/08/17 04:59 Labs: Short CBC 11/07/17 11/08/17 Range/Units 16:04 04:59 WBC 3.1 L 3.4 L (4.3-11.1) K/mcL Hgb 8.4 L 8.9 L (11.5-15.4) g/dL Hct 25.0 L 26.7 L (35.3-44.9) % Plt Count 46 L 42 L (140-400) K/mcL Neutrophils # 2.7 2.8 (1.6-8.9) K/mcL BMP 11/08/17 04:59 Sodium 134 L Potassium 4.7 Chloride 105 Carbon Dioxide 18 L BUN 125 H Creatinine 3.42 H Glucose 187 H Calcium 9.1 Liver Function 11/08/17 Range/Units 04:59 Total Bilirubin 2.5 H (0.3-1.0) mg/dL AST 18 (13-39) Units/L ALT 11 (7-52) Units/L Alkaline Phosphatase 48 (34-104) Units/L Albumin 3.8 (3.5-5.7) g/dL - ABG Interpretation ABG results: PT/INR, D-dimer PT 18.3 Seconds (9.4-12.1) H 11/05/17 06:33 Consult Discharge Plan - Plan Referrals: Rashawn Michaels MD [Non-Partnered Physician] - 11/13/17 3:15 pm
--- NOTE | 2017-11-08 11:43 | IR Procedure Note ---
Date of procedure: 11/08/17 Consent Obtained: Verbal consent Timeout: Correct patient and procedure verified, Correct site verified, Time out performed, Skin prep completed Indications: ascites Procedure Performed: paracentesis Was there an real estate administrative assistant present: No Site/Technique: lt abdomen Results/Findings: moderate ascites Estimated blood loss (cc): 0 Complications: None; Tolerated procedure well Post Procedure Treatment Plan: monitor Specimen: fluid
[2017-11-08] MEDS ORDERED: Heparin 1,000 UNITS/500 mL 500 ML ONE (13:44)
[2017-11-08] MEDS ORDERED: *HR* Heparin 5,000 UNIT/ML VIAL ONE (14:14)
[2017-11-08 16:54] LABS: Hepatitis B Surface Antigen Nonreactive (Nonreactive)
[2017-11-09 01:27] LABS: Hepatitis B Surface Antibody 1.23 mIU/mL
--- NOTE | 2017-11-09 07:18 | Nephrology Progress Note ---
Date of Encounter: 11/09/17 Time of Encounter: 07:18 - Assessment and Plan (1) Acute kidney injury Current Visit: Yes Status: Acute Cr continues to mildly decline today. Scheduled for HD today. - continue renal diet - strict I/O - will continue monitoring renal function - avoid nephrotoxins if possible - renal dosing (2) Cirrhosis of liver with ascites Current Visit: Yes Status: Acute per primary team Qualifiers: Hepatic cirrhosis type: unspecified hepatic cirrhosis Qualified Code(s): K74.60 - Unspecified cirrhosis of liver (3) Heart murmur Current Visit: Yes Status: Acute - echo LVEF read as 60-65% Subjective Principal diagnosis: howie on ckd Interval history: Ms Shaffer is seen and examined today. No events overnight, no new complaints. Patient is feeling mildly better after receiving paracentesis yesterday. Temp cath was placed yesterday and she is aware that she will receive HD today. Patient denies nausea, voimitnig, chest pain, sob. Objective - Vital Signs Vital signs: Vital Signs Temp Pulse Resp BP Pulse Ox 11/09/17 04:16 97.4 F L 57 18 113/51 90 11/09/17 03:56 18 95 11/09/17 00:36 97.4 F L 53 18 118/66 95 11/08/17 19:44 96.0 F L 56 18 116/61 94 11/08/17 19:42 97.3 F L 50 18 133/63 94 11/08/17 16:18 97.5 F L 53 20 129/75 93 11/08/17 16:00 97.7 F 54 20 125/65 93 11/08/17 13:43 97.6 F 49 20 110/61 95 11/08/17 11:25 97.7 F 54 20 116/74 94 11/08/17 11:10 97.6 F 58 20 113/61 93 11/08/17 11:02 97.6 F 58 20 113/61 93 11/08/17 10:52 16 92 11/08/17 08:10 96 11/08/17 07:52 97.6 F 109 17 123/64 96 Intake and Output 11/08/17 11/08/17 11/09/17 15:59 23:59 07:59 Intake Total 260 / 260 450 / 450 Output Total 1650 / 1650 Balance -1390 / -1390 450 / 450 Intake: Oral 60 / 60 Blood Product 200 / 200 450 / 450 Platelet Pheresis Lp Irr 1st 450 / 450 Unit [id number] Platelet Pheresis Lp Irr 3rd 200 / 200 Unit [id number] Output: Peracentesis 1500 / 1500 Catheter 150 / 150 Other: Meal NPO Percent of Meal Consumed 0% Weight 102.5 kg Blood Glucose* 113 99 Patient Weight 11/09/17 23:59 Weight 102.5 kg - General Appearance General appearance: Present: appears started age, obese, frail EENT: Present: mucous membranes moist Neck: Present: supple Respiratory: Present: clear Cardiology: Present: edema (1+ BLE), regular rate, regular rhythm Dialysis Vascular Access: Venous Catheter (temp cath on right, clean and dry) Gastrointestinal: Present: normoactive bowel sounds Integumentary: Present: no rash, warm and dry Neurologic: Present: no focal deficit, alert and oriented x3 Psychiatric: Present: mood/affect appropriate, cooperative - Lab 11/09/17 08:22 11/09/17 08:22 Most recent lab results Calcium 9.1 mg/dL (8.6-10.3) 11/08/17 04:59 Phosphorus 4.7 mg/dL (2.7-4.5) H 11/01/17 04:47 Magnesium 2.1 mg/dL (1.6-2.6) 11/01/17 04:47 Urine Creatinine 98 mg/dL 10/31/17 05:45 Urine Sodium 26.3 mEq/L 11/03/17 16:08 Urine Total Protein 76 mg/dL (1-14) H 10/31/17 05:45 Consult Discharge Plan - Plan Referrals: Rashawn Michaels MD [Non-Partnered Physician] - 11/13/17 3:15 pm
[2017-11-09] MEDS: Budesonide/Formoterol 160/4.5 MDI IH SCH ×2 (07:42→22:02)
[2017-11-09] MEDS ORDERED: Albuterol 2.5 MG/3 ML NEBULIZER IH PRN (07:50)
[2017-11-09] MEDS: Insulin DETEMIR 100 UNIT/ML X5UNITS SQ SCH (08:08)
[2017-11-09 08:15] LABS: Basophils % 0.2 %; Eosinophils % 0.2 %; Hematocrit 28.2 % (35.3-44.9); Hemoglobin 9.2 g/dL (11.5-15.4); Immature Granulocytes % 0.3 % (0-4); Immature Platelets 3.5 % (1.1-6.1); Lymphocytes # 0.6 K/mcL (0.6-4.6); Lymphocytes % 11.1 %; Mean Corpuscular HGB Conc 32.6 g/dL (31.6-35.5); Mean Corpuscular Hemoglobin 31.4 pg (28.0-33.3); Mean Corpuscular Volume 96.2 fL (83.0-100.0); Mean Platelet Volume 10.7 fL (9.4-12.4); Monocytes # 0.5 K/mcL (0.0-1.3); Monocytes % 8.2 %; Neutrophils # 4.6 K/mcL (1.6-8.9); Red Blood Count 2.93 M/mcL (3.82-4.97); Red Cell Distribution Width 16.9 % (11.5-14.5)
[2017-11-09 08:31] LABS: Alanine Aminotransferase 13 Units/L (7-52); Albumin 3.7 g/dL (3.5-5.7); Albumin/Globulin Ratio 1.4 (1.1-2.2); Alkaline Phosphatase 49 Units/L (34-104); Aspartate Amino Transferase 18 Units/L (13-39); Bilirubin,Total 2.7 mg/dL (0.3-1.0); Blood Urea Nitrogen > 130 mg/dL (8-23); Calcium 9.3 mg/dL (8.6-10.3); Carbon Dioxide 20 mEq/L (23-29); Chloride 104 mEq/L (98-107); Globulin 2.7 g/dL (2.4-3.5); Glucose 129 mg/dL (70-105); Potassium 4.6 mEq/L (3.5-5.1); Sodium 135 mEq/L (136-145); Total Protein 6.4 g/dL (6.4-8.9); eGFR For African Americans 14 (> 60); eGFR For Non-African Americans 11 (> 60)
[2017-11-09 08:32] LABS: Platelet Count 63 K/mcL (140-400)
[2017-11-09 08:35] LABS: Hematocrit 28.3 % (35.3-44.9); Hemoglobin 9.5 g/dL (11.5-15.4); Mean Corpuscular HGB Conc 33.6 g/dL (31.6-35.5); Red Cell Distribution Width 16.6 % (11.5-14.5)
[2017-11-09 08:37] LABS: Eosinophils % 0.2 %; Immature Granulocytes % 0.2 % (0-4); Immature Platelets 1.1 % (1.1-6.1); Lymphocytes # 0.6 K/mcL (0.6-4.6); Lymphocytes % 11.4 %; Mean Corpuscular Hemoglobin 32.6 pg (28.0-33.3); Mean Corpuscular Volume 97.3 fL (83.0-100.0); Monocytes # 0.5 K/mcL (0.0-1.3); Red Blood Count 2.91 M/mcL (3.82-4.97); Segmented Neutrophils % 79.2 %
[2017-11-09 08:38] LABS: Platelet Count 56 K/mcL (140-400)
[2017-11-09] MEDS: Ondansetron 4 MG/2 ML VIAL IVP PRN (08:57)
[2017-11-09] MEDS: predniSONE 20 MG TABLET PO SCH (08:58)
[2017-11-09] MEDS: Insulin LISPRO 300 UNITS/3 ML VIAL SQ SCH ×8 (09:00→23:35)
[2017-11-09 09:09] LABS: Blood Urea Nitrogen > 130 mg/dL (8-23)
[2017-11-09 09:38] LABS: Alanine Aminotransferase 13 Units/L (7-52); Albumin 3.7 g/dL (3.5-5.7); Albumin/Globulin Ratio 1.4 (1.1-2.2); Alkaline Phosphatase 49 Units/L (34-104); Aspartate Amino Transferase 19 Units/L (13-39); Bilirubin,Total 2.8 mg/dL (0.3-1.0); Calcium 9.3 mg/dL (8.6-10.3); Carbon Dioxide 18 mEq/L (23-29); Chloride 105 mEq/L (98-107); Globulin 2.7 g/dL (2.4-3.5); Glucose 131 mg/dL (70-105); Potassium 4.6 mEq/L (3.5-5.1); Sodium 137 mEq/L (136-145); Total Protein 6.4 g/dL (6.4-8.9); eGFR For African Americans 14 (> 60); eGFR For Non-African Americans 11 (> 60)
--- NOTE | 2017-11-09 10:21 | Internal Med Progress Note ---
Date of Encounter: 11/09/17 Time of Encounter: 10:20 - Assessment and plan (1) Diabetes mellitus type 2 in obese Current Visit: Yes Status: Chronic Assessment and plan: FS ACCEPTABLE, CONTINUE TO MONITOR ACHS Continue insulin, ADA diet (2) Acute respiratory failure with hypoxia Current Visit: Yes Status: Acute Assessment and plan: patient still requiring oxygen, NO more resp distress O2 requirement slowly improving, now on 4 L from 10L Multifactorial: Ascites/COPDE/Pneumonia/Pulm edema CXR 11/07 with pulmonary edema and possible pneumonia IR was unable to do thoracentesis -no effusion noted on CXR of 11/[address] done earlier. Continue supplemental O2 as needed - wean as tolerated Continue Prednisone 20 mg daily for 5 days and monitor for improvement. with Duo neb therapy prn. Continue levaquin-Day 3 (3) Active asthma Current Visit: Yes Status: Chronic Assessment and plan: as above (4) Thrombocytopenia Current Visit: Yes Status: Chronic Assessment and plan: PLT improved to 56, s/p 7 units of pooled pLTS She has received all procedures well without bleeding. Continue to monitor. Heme/Onc noted-B12 folate TSH normal, Her hematological problems cannot be reversed given end-stage liver disease. (5) DVT prophylaxis Current Visit: Yes Status: Acute Assessment and plan: SCDs due to thrombocytopenia. (6) Hypertension Current Visit: Yes Status: Chronic Assessment and plan: Continue Norvasc and Propanolol Qualifiers: Hypertension type: essential hypertension Qualified Code(s): I10 - Essential (primary) hypertension (7) Depression Current Visit: Yes Status: Chronic Assessment and plan: continue home meds Qualifiers: Depression Type: major depressive disorder Major depression recurrence: recurrent Active/Remission status: currently active Major depression episode severity: unspecified Qualified Code(s): F33.9 - Major depressive disorder, recurrent, unspecified (8) Cirrhosis of liver with ascites Current Visit: Yes Status: Acute Assessment and plan: 72-year-old female with diabetes, hypertension and liver cirrhosis 2/2 to HENRIQUEZ presenting with SOB and abdominal ascites. No fever, abdominal pain or tenderness or Altered mental status on exam. Child-Shaffer Classification Score: 9 (AO x 3, Ascites, Luis < 2 mg/dL, Albumin < 2.8, INR < 1.7). Dietary education, 2 g per day sodium restricted diet 4 L fluid removed on paracentesis on 11/01 Ascites recollected, s/p paracentensis 11/08 with 1.5 L removed No SBP GI consulted, recommendations appreciated : Noted that she may require TIPS procedure if this is recurrent issue. Continue propranolol AFP was 2, Hepatitis panel negative. No diuretics due to ANTONIO on CKD, Hepatorenal syndrome Qualifiers: Hepatic cirrhosis type: unspecified hepatic cirrhosis Qualified Code(s): K74.60 - Unspecified cirrhosis of liver (9) Hepatorenal syndrome Current Visit: Yes Status: Acute Assessment and plan: management per renal Not on any diuretics at this time Possibly hemodialysis today (10) Acute kidney injury superimposed on chronic kidney disease Current Visit: Yes Status: Acute Assessment and plan: As above (11) Fall Current Visit: Yes Status: Acute Assessment and plan: PT.OT eliecer noted- for home health CT head negative Fall precautions Qualifiers: Encounter type: initial encounter Qualified Code(s): W19.XXXA - Unspecified fall, initial encounter (12) Hypersplenism Current Visit: Yes Status: Chronic Assessment and plan: as in liver disease (13) Pancytopenia Current Visit: Yes Status: Acute Assessment and plan: as in thrombocytopenia, continue to monitor RBC transfusion for HB <7 (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 Current Visit: Yes Status: Chronic Assessment and plan: secondary to liver disease/portal HTN Started patient on propranolol 11/07 Continue same (15) Pleural effusion, left Current Visit: Yes Status: Resolved Assessment and plan: Moderate size as seen on CT chest CXR 11/07 with no pleural effusion Continue O2 supplementation (16) Pneumonia Current Visit: Yes Status: Suspected Assessment and plan: Suspected chest x-ray. Patient has no cough, however she has been hypoxic and requiring higher doses of oxygen. Start patient on Levaquin 11/07, renally adjusted-day 3, continue same Continue oxygen supplementation by nasal cannula. Qualifiers: Pneumonia type: due to unspecified organism Laterality: bilateral Lung location: unspecified part of lung Qualified Code(s): J18.9 - Pneumonia, unspecified organism (17) CHF (congestive heart failure) Current Visit: Yes Status: Acute Assessment and plan: Patient with peristent and worsening hypoxia CXR 11/07 noted for suspected acute CHF/pulmonary edema ECHO on admission showed preserved EF with moderate LVDD Patient cannot tolerate diuretics due to worsening renal function Continue O2 supplementation Per renal , she will be started on HD today 11/09 Qualifiers: Heart failure type: diastolic Heart failure chronicity: acute on chronic Qualified Code(s): I50.33 - Acute on chronic diastolic (congestive) heart failure - Time Spent With Patient Total time spent is greater than 50% in coordination of care (as documented) at patient's floor/unit and/or counseling patient: - Subjective Interval history: Seen and evaluated at the bedside She is being managed for decompensated liver cirrhosis with ascites, pleural effusion, Type II heptorenal syndrome, ANTONIO on CKD, She also has pancytopenia with PLT <30,000 which has precluded her from getting any procedures She is s/p paracentensis with 4L removed 11/01 She has no new complains, she is ambulatory Her renal function continues to worsen Repeat CXR done 11/07 shows possible pneumonia vs acute CHF, she was started on Levquin She is seen and evaluated during paracentensis 11/08, 1.5L of fluid was removed Hypoxia is improving on current threrapy Gastroenterology, nephrology are following She is seen and examined at the bedside this morning, and denies new complains, she feel relieved with abdominal distension and she reports her breathing has improved She sits OOB to chair daily 11/09: The patient continues to complain of nausea, with dry heaves, and BUN this morning is >130 and creatinine continues to worsen. She is alert and oriented. Liver Function test remains within normal limits. Platelet count this morning is 6000. She received temporary right internal jugular hemodialysis catheter/12/21. She will be started on hemodialysis today per Nephrology. - Constitutional Vitals: Temp Pulse Resp BP Pulse Ox 97.9 F 60 18 129/64 89 11/09/17 07:52 11/09/17 07:52 11/09/17 07:52 11/09/17 07:52 11/09/17 07:52 General appearance: Present: cooperative, A&O X 3, morbidly obese, no acute distress, answers questions appropriately - Head Head exam: Present: atraumatic, normocephalic - Eye Eye exam: Present: PERRL, conjuntiva pink, sclera anicteric Pupils: Present: PERRL - Neck Neck exam general surgery: Present: supple, trachea midline. Absent: lymphadenopathy - Respiratory Respiratory exam: Present: decreased breath sounds - Cardiovascular Cardiovascular exam: Present: RRR, +S1, +S2. Absent: diastolic murmur, gallop, rubs, systolic murmur - GI/Abdominal GI/Abdominal exam: Present: distended, normal bowel sounds, soft, no peritoneal signs. Absent: tenderness - Extremities Exam Extremities exam: Present: warm, radial pulses palpable and symmetrical. Absent : calf tenderness, cyanotic, pedal edema - Neurological Exam Neurological exam: Present: alert, CN II-XII intact, oriented X3, no focal deficits. Absent: pronater drift, facial droop, speech deficit - Skin Skin exam: Present: dry, intact Additional comments: Multiple bruises on all extremities. Internal Medicine: Result - Labs CBC & Chem 7: 11/09/17 08:22 11/09/17 08:22 Labs: Short CBC 11/09/17 11/09/17 Range/Units 04:00 08:22 WBC 5.8 D 5.0 (4.3-11.1) K/mcL Hgb 9.2 L 9.5 L (11.5-15.4) g/dL Hct 28.2 L 28.3 L (35.3-44.9) % Plt Count 63 L 56 L (140-400) K/mcL Neutrophils # 4.6 4.0 (1.6-8.9) K/mcL BMP 11/09/17 11/09/17 04:00 08:22 Sodium 135 L 137 Potassium 4.6 4.6 Chloride 104 105 Carbon Dioxide 20 L 18 L BUN > 130 H > 130 H Creatinine 3.96 H 3.89 H Glucose 129 H 131 H Calcium 9.3 9.3 Liver Function 11/09/17 11/09/17 Range/Units 04:00 08:22 Total Bilirubin 2.7 H 2.8 H (0.3-1.0) mg/dL AST 18 19 (13-39) Units/L ALT 13 13 (7-52) Units/L Alkaline Phosphatase 49 49 (34-104) Units/L Albumin 3.7 3.7 (3.5-5.7) g/dL - ABG Interpretation ABG results: PT/INR, D-dimer PT 18.3 Seconds (9.4-12.1) H 11/05/17 06:33 - Impressions Impressions Guidance Needle Placement Ultrasound 11/08/17 00:00 IMPRESSION: Successful ultrasound guided non-tunneled catheter placement. D/ / 11/08/2017 15:46:45 Laure Johnson MD / [facility] Interpreting Provider: Laure Johnson MD Insertion Non-Tunneled Catheter 11/08/17 00:00 IMPRESSION: Successful ultrasound guided non-tunneled catheter placement. D/ / 11/08/2017 15:46:45 Laure Johnson MD / [facility] Interpreting Provider: Laure Johnson MD Paracentesis Ultrasound 11/08/17 08:19 IMPRESSION: Successful ultrasound guided paracentesis. D/ / Laure Johnson MD / Laure Johnson MD Interpreting Provider: Laure Johnson MD Chest X-Ray 11/08/17 14:24 IMPRESSION: 1. Right transjugular central venous catheter terminating in the superior vena cava. 2. Enlarged cardiac silhouette with pulmonary interstitial edema. D/ / Maynor Shaffer MD / Maynor Shaffer MD Interpreting Provider: Maynor Shaffer MD Consult Discharge Plan - Plan Referrals: Rashawn Michaels MD [Non-Partnered Physician] - 11/13/17 3:15 pm
[2017-11-09] MEDS ORDERED: 0.9 % Sodium Chloride 250 ML IVC PRN (10:25)
[2017-11-09] MEDS ORDERED: *HR* Heparin 10,000 UNIT/10 ML VIAL IV PRN (10:25)
[2017-11-09] MEDS ORDERED: 0.9 % Sodium Chloride 1,000 ML PRIME SCH (10:30)
[2017-11-09] MEDS: levoFLOXacin 500 MG TABLET PO SCH (12:20)
[2017-11-09] MEDS: amLODIPine 5 MG TABLET PO SCH (18:51)
[2017-11-10] MEDS: Insulin DETEMIR 100 UNIT/ML X5UNITS SQ SCH ×2 (01:40→20:45)
[2017-11-10] MEDS: Ondansetron 4 MG/2 ML VIAL IVP PRN ×2 (04:08→20:48)
[2017-11-10 04:37] LABS: Immature Granulocytes % 0.3 % (0-4); Mean Corpuscular HGB Conc 33.6 g/dL (31.6-35.5); Mean Corpuscular Volume 95.2 fL (83.0-100.0)
[2017-11-10 04:39] LABS: Hematocrit 25.9 % (35.3-44.9); Hemoglobin 8.7 g/dL (11.5-15.4); Immature Platelets 1.8 % (1.1-6.1); Lymphocytes # 0.5 K/mcL (0.6-4.6); Lymphocytes % 12.7 %; Mean Platelet Volume 10.8 fL (9.4-12.4); Monocytes # 0.3 K/mcL (0.0-1.3); Neutrophils # 2.8 K/mcL (1.6-8.9); Red Blood Count 2.72 M/mcL (3.82-4.97); Red Cell Distribution Width 16.2 % (11.5-14.5)
[2017-11-10 04:50] LABS: Platelet Count 43 K/mcL (140-400)
[2017-11-10 04:52] LABS: Albumin 3.6 g/dL (3.5-5.7); Albumin/Globulin Ratio 1.5 (1.1-2.2); Bilirubin,Total 2.7 mg/dL (0.3-1.0); Calcium 9.1 mg/dL (8.6-10.3); Globulin 2.4 g/dL (2.4-3.5); Potassium 4.5 mEq/L (3.5-5.1)
[2017-11-10] MEDS: Insulin LISPRO 300 UNITS/3 ML VIAL SQ SCH ×7 (08:33→20:45)
--- NOTE | 2017-11-10 09:27 | Internal Med Progress Note ---
Date of Encounter: 11/10/17 Time of Encounter: 09:26 - Assessment and plan (1) Diabetes mellitus type 2 in obese Current Visit: Yes Status: Chronic Assessment and plan: FS ACCEPTABLE, CONTINUE TO MONITOR ACHS Continue insulin, ADA diet (2) Acute respiratory failure with hypoxia Current Visit: Yes Status: Acute Assessment and plan: patient still requiring oxygen, NO more resp distress O2 requirement slowly improving, now on 4 L from 10L Multifactorial: Ascites/COPDE/Pneumonia/Pulm edema CXR 11/07 with pulmonary edema and possible pneumonia IR was unable to do thoracentesis -no effusion noted on CXR of 11/[address] done earlier. Continue supplemental O2 as needed - wean as tolerated Continue Prednisone 20 mg daily for 5 days and monitor for improvement. with Duo neb therapy prn. Continue levaquin-Day 4 (3) Active asthma Current Visit: Yes Status: Chronic Assessment and plan: as above (4) Thrombocytopenia Current Visit: Yes Status: Chronic Assessment and plan: PLT stable in the 40s, s/p 7 units of pooled pLTS She has received all procedures well without bleeding. Continue to monitor. Heme/Onc noted-B12 folate TSH normal, Her hematological problems cannot be reversed given end-stage liver disease. (5) DVT prophylaxis Current Visit: Yes Status: Acute Assessment and plan: SCDs due to thrombocytopenia. (6) Hypertension Current Visit: Yes Status: Chronic Assessment and plan: Continue Norvasc and Propanolol Qualifiers: Hypertension type: essential hypertension Qualified Code(s): I10 - Essential (primary) hypertension (7) Depression Current Visit: Yes Status: Chronic Assessment and plan: continue home meds Qualifiers: Depression Type: major depressive disorder Major depression recurrence: recurrent Active/Remission status: currently active Major depression episode severity: unspecified Qualified Code(s): F33.9 - Major depressive disorder, recurrent, unspecified (8) Cirrhosis of liver with ascites Current Visit: Yes Status: Acute Assessment and plan: 72-year-old female with diabetes, hypertension and liver cirrhosis 2/2 to HENRIQUEZ presenting with SOB and abdominal ascites. No fever, abdominal pain or tenderness or Altered mental status on exam. Child-Shaffer Classification Score: 9 (AO x 3, Ascites, Luis < 2 mg/dL, Albumin < 2.8, INR < 1.7). Dietary education, 2 g per day sodium restricted diet 4 L fluid removed on paracentesis on 11/01 Ascites recollected, s/p paracentensis 11/08 with 1.5 L removed No SBP GI consulted, recommendations appreciated : Noted that she may require TIPS procedure if this is recurrent issue. Continue propranolol AFP was 2, Hepatitis panel negative. No diuretics due to ANTONIO on CKD, Hepatorenal syndrome Qualifiers: Hepatic cirrhosis type: unspecified hepatic cirrhosis Qualified Code(s): K74.60 - Unspecified cirrhosis of liver (9) Hepatorenal syndrome Current Visit: Yes Status: Acute Assessment and plan: management per renal Not on any diuretics at this time continue HD per renal schedule (10) Acute kidney injury superimposed on chronic kidney disease Current Visit: Yes Status: Acute Assessment and plan: As above (11) Fall Current Visit: Yes Status: Acute Assessment and plan: PT.OT eliecer noted- for home health CT head negative Fall precautions Qualifiers: Encounter type: initial encounter Qualified Code(s): W19.XXXA - Unspecified fall, initial encounter (12) Hypersplenism Current Visit: Yes Status: Chronic Assessment and plan: as in liver disease (13) Pancytopenia Current Visit: Yes Status: Acute Assessment and plan: as in thrombocytopenia, continue to monitor RBC transfusion for HB <7 (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 Current Visit: Yes Status: Chronic Assessment and plan: secondary to liver disease/portal HTN Started patient on propranolol 11/07 Continue same (15) Pleural effusion, left Current Visit: Yes Status: Resolved Assessment and plan: Moderate size as seen on CT chest CXR 11/07 with no pleural effusion Continue O2 supplementation (16) Pneumonia Current Visit: Yes Status: Suspected Assessment and plan: Suspected chest x-ray. Patient has no cough, however she has been hypoxic and requiring higher doses of oxygen. Start patient on Levaquin 11/07, renally adjusted-day 4, continue same Continue oxygen supplementation by nasal cannula, now on 2L, continue to wean as tolerated. Qualifiers: Pneumonia type: due to unspecified organism Laterality: bilateral Lung location: unspecified part of lung Qualified Code(s): J18.9 - Pneumonia, unspecified organism (17) CHF (congestive heart failure) Current Visit: Yes Status: Acute Assessment and plan: Patient with peristent and worsening hypoxia CXR 11/07 noted for suspected acute CHF/pulmonary edema ECHO on admission showed preserved EF with moderate LVDD Patient cannot tolerate diuretics due to worsening renal function Continue O2 supplementation Per renal , she was started on HD today 11/09 Continue management per renal Qualifiers: Heart failure type: diastolic Heart failure chronicity: acute on chronic Qualified Code(s): I50.33 - Acute on chronic diastolic (congestive) heart failure - Time Spent With Patient Total time spent is greater than 50% in coordination of care (as documented) at patient's floor/unit and/or counseling patient: - Subjective Interval history: Seen and evaluated at the bedside She is being managed for decompensated liver cirrhosis with ascites, pleural effusion, Type II heptorenal syndrome, ANTONIO on CKD, She also has pancytopenia with PLT <30,000 which has precluded her from getting any procedures She is s/p paracentensis with 4L removed 11/01 She has no new complains, she is ambulatory Her renal function continues to worsen Repeat CXR done 11/07 shows possible pneumonia vs acute CHF, she was started on Levquin She is seen and evaluated during paracentensis 11/08, 1.5L of fluid was removed Hypoxia is improving on current threrapy Gastroenterology, nephrology are following She is seen and examined at the bedside this morning, and denies new complains, she feel relieved with abdominal distension and she reports her breathing has improved She sits OOB to chair daily 11/09: The patient continues to complain of nausea, with dry heaves, and BUN this morning is >130 and creatinine continues to worsen. She is alert and oriented. Liver Function test remains within normal limits. Platelet count this morning is 6000. She received temporary right internal jugular hemodialysis catheter/12/21. She will be started on hemodialysis today per Nephrology. 11/09: Seen and examined at the bedside. Nephrology input appreciated. Going for dialysis today. Respiratory status continues to improve. Platelet is stable - Constitutional Vitals: Temp Pulse Resp BP Pulse Ox 97.6 F 56 18 134/51 93 11/10/17 07:49 11/10/17 07:49 11/10/17 07:49 11/10/17 07:49 11/10/17 07:49 General appearance: Present: cooperative, A&O X 3, morbidly obese, no acute distress, answers questions appropriately - Head Head exam: Present: atraumatic, normocephalic - Eye Eye exam: Present: PERRL, conjuntiva pink, sclera anicteric Pupils: Present: PERRL - Neck Neck exam general surgery: Present: supple, trachea midline. Absent: lymphadenopathy Additional comments: R IJ catheter intact, dressing is clean with no surrounding bleed - Respiratory Respiratory exam: Present: CTAB. Absent: accessory muscle use, rales, rhonchi, wheezes - Cardiovascular Cardiovascular exam: Present: RRR, +S1, +S2. Absent: diastolic murmur, gallop, rubs, systolic murmur - GI/Abdominal GI/Abdominal exam: Present: normal bowel sounds, soft, no peritoneal signs. Absent: distended, tenderness - Extremities Exam Extremities exam: Present: warm, radial pulses palpable and symmetrical. Absent : calf tenderness, cyanotic, pedal edema - Neurological Exam Neurological exam: Present: alert, CN II-XII intact, oriented X3, no focal deficits. Absent: pronater drift, facial droop, speech deficit - Skin Skin exam: Present: dry, intact Additional comments: bruises Internal Medicine: Result - Labs CBC & Chem 7: 11/10/17 04:00 11/10/17 04:00 Labs: Short CBC 11/10/17 Range/Units 04:00 WBC 3.6 L (4.3-11.1) K/mcL Hgb 8.7 L (11.5-15.4) g/dL Hct 25.9 L (35.3-44.9) % Plt Count 43 L (140-400) K/mcL Neutrophils # 2.8 (1.6-8.9) K/mcL BMP 11/09/17 11/10/17 08:22 04:00 Sodium 137 135 L Potassium 4.6 4.5 Chloride 105 103 Carbon Dioxide 18 L 21 L BUN 112 H Creatinine 3.89 H 3.46 H Glucose 131 H 146 H Calcium 9.3 9.1 Liver Function 11/09/17 11/10/17 Range/Units 08:22 04:00 Total Bilirubin 2.8 H 2.7 H (0.3-1.0) mg/dL AST 19 18 (13-39) Units/L ALT 13 12 (7-52) Units/L Alkaline Phosphatase 49 45 (34-104) Units/L Albumin 3.7 3.6 (3.5-5.7) g/dL - ABG Interpretation ABG results: PT/INR, D-dimer PT 18.3 Seconds (9.4-12.1) H 11/05/17 06:33 Consult Discharge Plan - Plan Referrals: Rashawn Michaels MD [Non-Partnered Physician] - 11/13/17 3:15 pm (Please follow up a sschedule...)
[2017-11-10] MEDS ORDERED: 0.9 % Sodium Chloride 1,000 ML PRIME SCH (10:00)
[2017-11-10] MEDS ORDERED: 0.9 % Sodium Chloride 250 ML IVC PRN (10:00)
--- NOTE | 2017-11-10 10:35 | Nephrology Progress Note ---
Date of Encounter: 11/10/17 Time of Encounter: 10:34 - Assessment and Plan (1) Acute kidney injury superimposed on chronic kidney disease Current Visit: Yes Status: Acute Patient with ANTONIO on CKD. She was seen on dialysis. Next dialysis session on Sunday. Avoid nephrotoxins. Adjust medications for renal function. (2) Cirrhosis of liver with ascites Current Visit: Yes Status: Acute Qualifiers: Hepatic cirrhosis type: unspecified hepatic cirrhosis Qualified Code(s): K74.60 - Unspecified cirrhosis of liver Subjective Principal diagnosis: antonio on ckd Interval history: Patient seen on dialysis. She feels that her breathing is better. Objective - Vital Signs Vital signs: Vital Signs Temp Pulse Resp BP Pulse Ox 11/10/17 07:49 97.6 F 56 18 134/51 93 11/10/17 04:26 97.6 F 58 18 123/57 88 11/09/17 23:18 97.6 F 55 20 145/76 96 11/09/17 22:02 16 95 11/09/17 18:38 97.6 F 63 18 138/61 95 11/09/17 17:10 98.0 F 22 144/73 11/09/17 17:00 145/65 11/09/17 16:45 144/64 11/09/17 16:30 140/58 11/09/17 16:15 122/55 11/09/17 16:00 135/59 11/09/17 15:45 126/61 11/09/17 15:30 128/57 11/09/17 15:15 146/72 11/09/17 15:00 98.3 F 22 143/70 11/09/17 11:10 97.5 F L 53 16 108/50 91 Intake and Output 11/09/17 11/10/17 11/10/17 23:59 07:59 15:59 Intake Total 160 / 160 0 / 0 120 / 120 Output Total 1999 0 / 0 Balance -1840 / -1840 0 / 0 120 / 120 Intake: Oral 160 / 160 0 / 0 120 / 120 Output: Urine 400 / 400 0 / 0 Total Dialysis (HD) Output 1600 / 1600 Other: Meal Breakfast Percent of Meal Consumed 40% Weight 101.1 kg Blood Glucose* 148 152 Hemodialysis Net Fluid Removed 1000 (mL) Patient Weight 11/10/17 23:59 Weight 101.1 kg - General Appearance General appearance: Present: well-developed, well-nourished EENT: Present: ATNC Cardiology: Present: edema, regular rate Gastrointestinal: Present: obese, distended Integumentary: Present: warm and dry Neurologic: Present: alert and oriented x3 Psychiatric: Present: mood/affect appropriate - Lab 11/10/17 04:00 11/10/17 04:00 Most recent lab results Calcium 9.1 mg/dL (8.6-10.3) 11/10/17 04:00 Phosphorus 4.7 mg/dL (2.7-4.5) H 11/01/17 04:47 Magnesium 2.1 mg/dL (1.6-2.6) 11/01/17 04:47 Urine Creatinine 98 mg/dL 10/31/17 05:45 Urine Sodium 26.3 mEq/L 11/03/17 16:08 Urine Total Protein 76 mg/dL (1-14) H 10/31/17 05:45 Consult Discharge Plan - Plan Referrals: Rashawn Michaels MD [Non-Partnered Physician] - 11/13/17 3:15 pm (Please follow up a sschedule...)
[2017-11-10] MEDS: Budesonide/Formoterol 160/4.5 MDI IH SCH ×2 (10:53→21:55)
[2017-11-10] MEDS: amLODIPine 5 MG TABLET PO SCH (16:11)
[2017-11-11 04:27] LABS: Eosinophils % 1.1 %; Hematocrit 24.2 % (35.3-44.9); Hemoglobin 8.1 g/dL (11.5-15.4); Lymphocytes # 0.4 K/mcL (0.6-4.6); Lymphocytes % 19.9 %; Mean Corpuscular HGB Conc 33.5 g/dL (31.6-35.5); Mean Corpuscular Hemoglobin 32.4 pg (28.0-33.3); Mean Corpuscular Volume 96.8 fL (83.0-100.0); Mean Platelet Volume 10.6 fL (9.4-12.4); Monocytes # 0.2 K/mcL (0.0-1.3); Monocytes % 11.4 %; Neutrophils # 1.2 K/mcL (1.6-8.9); Red Cell Distribution Width 16.4 % (11.5-14.5); Segmented Neutrophils % 67.6 %
[2017-11-11 04:36] LABS: Calcium 8.8 mg/dL (8.6-10.3); Potassium 4.4 mEq/L (3.5-5.1)
[2017-11-11 04:39] LABS: Platelet Count 19 K/mcL (140-400)
[2017-11-11 05:16] LABS: Platelet Estimate Decreased (Normal)
[2017-11-11] MEDS: Insulin LISPRO 300 UNITS/3 ML VIAL SQ SCH ×7 (08:29→20:55)
[2017-11-11] MEDS: amLODIPine 5 MG TABLET PO SCH (08:48)
[2017-11-11] MEDS: Ondansetron 4 MG/2 ML VIAL IVP PRN ×3 (08:48→17:03)
[2017-11-11] MEDS: Budesonide/Formoterol 160/4.5 MDI IH SCH ×2 (10:27→22:04)
--- NOTE | 2017-11-11 10:29 | Nephrology Progress Note ---
Date of Encounter: 11/11/17 Time of Encounter: 10:28 - Assessment and Plan (1) Acute kidney injury superimposed on chronic kidney disease Current Visit: Yes Status: Acute Patient with ANTONIO on CKD. Next dialysis session on Sunday. Avoid nephrotoxins. Adjust medications for renal function. (2) Cirrhosis of liver with ascites Current Visit: Yes Status: Acute Qualifiers: Hepatic cirrhosis type: unspecified hepatic cirrhosis Qualified Code(s): K74.60 - Unspecified cirrhosis of liver Subjective Principal diagnosis: antonio on ckd Interval history: Patient seen. She feels that her breathing is better. Objective - Vital Signs Vital signs: Vital Signs Temp Pulse Resp BP Pulse Ox 11/11/17 09:37 96 11/11/17 08:56 92 11/11/17 07:49 98.3 F 86 17 138/69 92 11/11/17 03:56 98.5 F 54 17 120/73 96 11/10/17 23:29 97.4 F L 52 17 147/78 96 11/10/17 21:55 17 96 11/10/17 19:30 98.5 F 59 17 147/69 94 11/10/17 13:10 98.3 F 71 20 135/58 93 11/10/17 12:30 97.6 F 20 129/67 11/10/17 12:05 120/63 11/10/17 11:50 146/78 11/10/17 11:35 140/64 11/10/17 11:20 137/73 11/10/17 11:05 136/56 11/10/17 10:50 141/70 11/10/17 10:35 144/60 Intake and Output 11/10/17 11/11/17 11/11/17 23:59 07:59 15:59 Intake Total 0 / 0 120 / 120 Output Total 200 / 200 Balance -200 / -200 120 / 120 Intake: Oral 0 / 0 120 / 120 Output: Catheter 200 / 200 Other: Meal 3 bites of applesauce and 3 small drinks of tea Breakfast Percent of Meal Consumed 50% Weight 98.8 kg Blood Glucose* 95 128 Patient Weight 11/11/17 23:59 Weight 98.8 kg - General Appearance General appearance: Present: well-developed, well-nourished, obese EENT: Present: ATNC Neck: Present: supple Respiratory: Present: course breath sounds Cardiology: Present: edema, regular rate Gastrointestinal: Present: no tenderness, obese Additional Comments: alert Psychiatric: Present: mood/affect appropriate - Lab 11/11/17 03:55 11/11/17 03:55 Most recent lab results Calcium 8.8 mg/dL (8.6-10.3) 11/11/17 03:55 Phosphorus 4.7 mg/dL (2.7-4.5) H 11/01/17 04:47 Magnesium 2.1 mg/dL (1.6-2.6) 11/01/17 04:47 Urine Creatinine 98 mg/dL 10/31/17 05:45 Urine Sodium 26.3 mEq/L 11/03/17 16:08 Urine Total Protein 76 mg/dL (1-14) H 10/31/17 05:45 Consult Discharge Plan - Plan Referrals: Rashawn Michaels MD [Non-Partnered Physician] - 11/13/17 3:15 pm (Please follow up a sschedule...)
--- NOTE | 2017-11-11 11:56 | Internal Med Progress Note ---
Date of Encounter: 11/11/17 Time of Encounter: 09:40 - Assessment and plan (1) Diabetes mellitus type 2 in obese Current Visit: Yes Status: Chronic Assessment and plan: FS ACCEPTABLE, CONTINUE TO MONITOR ACHS CPatient not requiring any insulin at this time Continue to monitor (2) Acute respiratory failure with hypoxia Current Visit: Yes Status: Resolved Assessment and plan: Resolved NO more resp distress O2 requirement slowly improving, now on 4 L from 10L Multifactorial: Ascites/COPDE/Pneumonia/Pulm edema CXR 11/07 with pulmonary edema and possible pneumonia IR was unable to do thoracentesis -no effusion noted on CXR of 11/[address] done earlier. Continue supplemental O2 as needed - wean as tolerated Prednisone completed Continue levaquin-Day 5 (3) Active asthma Current Visit: Yes Status: Chronic Assessment and plan: as above (4) Thrombocytopenia Current Visit: Yes Status: Chronic Assessment and plan: s/p 7 units of pooled pLTS PLT this a.m 19K, no bleeding She has received all procedures well without bleeding. Heme/Onc noted-B12 folate TSH normal, Her hematological problems cannot be reversed given end-stage liver disease For transfusion if PLT <10K, or evidence of bleeding on current numbers, continue to monitor (5) DVT prophylaxis Current Visit: Yes Status: Acute Assessment and plan: SCDs due to thrombocytopenia. (6) Hypertension Current Visit: Yes Status: Chronic Assessment and plan: Continue Norvasc and Propanolol Qualifiers: Hypertension type: essential hypertension Qualified Code(s): I10 - Essential (primary) hypertension (7) Depression Current Visit: Yes Status: Chronic Assessment and plan: continue home meds Qualifiers: Depression Type: major depressive disorder Major depression recurrence: recurrent Active/Remission status: currently active Major depression episode severity: unspecified Qualified Code(s): F33.9 - Major depressive disorder, recurrent, unspecified (8) Cirrhosis of liver with ascites Current Visit: Yes Status: Acute Assessment and plan: 72-year-old female with diabetes, hypertension and liver cirrhosis 2/2 to HENRIQUEZ presenting with SOB and abdominal ascites. No fever, abdominal pain or tenderness or Altered mental status on exam. Child-Shaffer Classification Score: 9 (AO x 3, Ascites, Luis < 2 mg/dL, Albumin < 2.8, INR < 1.7). Dietary education, 2 g per day sodium restricted diet 4 L fluid removed on paracentesis on 11/01 Ascites recollected, s/p paracentensis 11/08 with 1.5 L removed No SBP GI consulted, recommendations appreciated : Noted that she may require TIPS procedure if this is recurrent issue. Continue propranolol AFP was 2, Hepatitis panel negative. No diuretics due to ANTONIO on CKD, Hepatorenal syndrome Qualifiers: Hepatic cirrhosis type: unspecified hepatic cirrhosis Qualified Code(s): K74.60 - Unspecified cirrhosis of liver (9) Hepatorenal syndrome Current Visit: Yes Status: Acute Assessment and plan: management per renal Not on any diuretics at this time continue HD per renal schedule (10) Acute kidney injury superimposed on chronic kidney disease Current Visit: Yes Status: Acute Assessment and plan: As above (11) Fall Current Visit: Yes Status: Acute Assessment and plan: PT.OT eliecer noted- for home health CT head negative Fall precautions Qualifiers: Encounter type: initial encounter Qualified Code(s): W19.XXXA - Unspecified fall, initial encounter (12) Hypersplenism Current Visit: Yes Status: Chronic Assessment and plan: as in liver disease (13) Pancytopenia Current Visit: Yes Status: Acute Assessment and plan: as in thrombocytopenia, continue to monitor RBC transfusion for HB <7 (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 Current Visit: Yes Status: Chronic Assessment and plan: secondary to liver disease/portal HTN Started patient on propranolol 11/07 Continue same (15) Pleural effusion, left Current Visit: Yes Status: Resolved Assessment and plan: Moderate size as seen on CT chest CXR 11/07 with no pleural effusion Continue O2 supplementation (16) Pneumonia Current Visit: Yes Status: Suspected Assessment and plan: Suspected chest x-ray. Patient has no cough, however she has been hypoxic and requiring higher doses of oxygen. Start patient on Levaquin 11/07, renally adjusted-day 5, continue same Continue oxygen supplementation by nasal cannula, now on 2L, continue to wean as tolerated. Qualifiers: Pneumonia type: due to unspecified organism Laterality: bilateral Lung location: unspecified part of lung Qualified Code(s): J18.9 - Pneumonia, unspecified organism (17) CHF (congestive heart failure) Current Visit: Yes Status: Acute Assessment and plan: Patient with peristent and worsening hypoxia CXR 11/07 noted for suspected acute CHF/pulmonary edema ECHO on admission showed preserved EF with moderate LVDD Patient cannot tolerate diuretics due to worsening renal function Continue O2 supplementation Per renal , she was started on HD 11/09 Continue management per renal Qualifiers: Heart failure type: diastolic Heart failure chronicity: acute on chronic Qualified Code(s): I50.33 - Acute on chronic diastolic (congestive) heart failure - Time Spent With Patient Total time spent is greater than 50% in coordination of care (as documented) at patient's floor/unit and/or counseling patient: - Subjective Interval history: Seen and evaluated at the bedside She is being managed for decompensated liver cirrhosis with ascites, pleural effusion, Type II heptorenal syndrome, ANTONIO on CKD, She also has pancytopenia with PLT <30,000 which has precluded her from getting any procedures She is s/p paracentensis with 4L removed 11/01 She has no new complains, she is ambulatory Her renal function continues to worsen Repeat CXR done 11/07 shows possible pneumonia vs acute CHF, she was started on Levquin She is seen and evaluated during paracentensis 11/08, 1.5L of fluid was removed Hypoxia is improving on current threrapy Gastroenterology, nephrology are following She is seen and examined at the bedside this morning, and denies new complains, she feel relieved with abdominal distension and she reports her breathing has improved She sits OOB to chair daily 11/09: The patient continues to complain of nausea, with dry heaves, and BUN this morning is >130 and creatinine continues to worsen. She is alert and oriented. Liver Function test remains within normal limits. Platelet count this morning is 6000. She received temporary right internal jugular hemodialysis catheter/12/21. She will be started on hemodialysis today per Nephrology. 11/10: Seen and examined at the bedside. Nephrology input appreciated. Going for dialysis today. Respiratory status continues to improve. Platelet is stable 11/10: Seen and examined at bedside. Received HD 11/10. NO HD scheduled for today. BUN slightly improving Patient reports nasuea is improving O2 requirement is minimal PLT back to baseline <20, 19 this a.m, no evidence of bleeding - Constitutional Vitals: Temp Pulse Resp BP Pulse Ox 98.3 F 86 16 138/69 95 11/11/17 07:49 11/11/17 07:49 11/11/17 10:27 11/11/17 07:49 11/11/17 10:27 General appearance: Present: cooperative, A&O X 3, morbidly obese, no acute distress, answers questions appropriately - Head Head exam: Present: atraumatic, normocephalic - Eye Eye exam: Present: PERRL, conjuntiva pink, sclera anicteric Pupils: Present: PERRL - Neck Neck exam general surgery: Present: supple, trachea midline. Absent: lymphadenopathy Additional comments: R IJ Shiley cath, surrounding dressing clean and dry - Respiratory Respiratory exam: Present: CTAB. Absent: accessory muscle use, rales, rhonchi, wheezes - Cardiovascular Cardiovascular exam: Present: RRR, +S1, +S2. Absent: diastolic murmur, gallop, rubs, systolic murmur - GI/Abdominal GI/Abdominal exam: Present: normal bowel sounds, soft, no peritoneal signs. Absent: distended, tenderness - Extremities Exam Extremities exam: Present: warm, radial pulses palpable and symmetrical. Absent : calf tenderness, cyanotic, pedal edema Additional comments: bruises-healed on extremities - Neurological Exam Neurological exam: Present: alert, CN II-XII intact, oriented X3, no focal deficits. Absent: pronater drift, facial droop, speech deficit - Skin Skin exam: Present: dry, intact Internal Medicine: Result - Labs CBC & Chem 7: 11/11/17 03:55 11/11/17 03:55 Labs: Short CBC 11/11/17 Range/Units 03:55 WBC 1.8 L (4.3-11.1) K/mcL Hgb 8.1 L (11.5-15.4) g/dL Hct 24.2 L (35.3-44.9) % Plt Count 19 L* D (140-400) K/mcL Neutrophils # 1.2 L (1.6-8.9) K/mcL BMP 11/11/17 03:55 Sodium 137 Potassium 4.4 Chloride 97 L Carbon Dioxide 25 BUN 77 H Creatinine 3.26 H Glucose 128 H Calcium 8.8 - ABG Interpretation ABG results: PT/INR, D-dimer PT 18.3 Seconds (9.4-12.1) H 11/05/17 06:33 Consult Discharge Plan - Plan Referrals: Rashawn Michaels MD [Non-Partnered Physician] - 11/13/17 3:15 pm (Please follow up a sschedule...)
[2017-11-11] MEDS: levoFLOXacin 500 MG TABLET PO SCH (12:17)
[2017-11-11] MEDS: Insulin DETEMIR 100 UNIT/ML X5UNITS SQ SCH (21:02)
[2017-11-12] MEDS: Ondansetron 4 MG/2 ML VIAL IVP PRN ×2 (03:48→08:05)
[2017-11-12 04:14] LABS: Mean Platelet Volume 10.4 fL (9.4-12.4)
[2017-11-12 04:15] LABS: Eosinophils % 1.5 %; Immature Granulocytes % 0.4 % (0-4)
[2017-11-12 04:17] LABS: Hematocrit 25.6 % (35.3-44.9); Hemoglobin 8.6 g/dL (11.5-15.4); Immature Platelets 3.4 % (1.1-6.1); Lymphocytes # 0.5 K/mcL (0.6-4.6); Lymphocytes % 18.3 %; Mean Corpuscular HGB Conc 33.6 g/dL (31.6-35.5); Mean Corpuscular Volume 95.2 fL (83.0-100.0); Monocytes # 0.3 K/mcL (0.0-1.3); Monocytes % 10.1 %; Neutrophils # 1.9 K/mcL (1.6-8.9); Red Blood Count 2.69 M/mcL (3.82-4.97); Red Cell Distribution Width 16.3 % (11.5-14.5); Segmented Neutrophils % 69.7 %
[2017-11-12 04:35] LABS: Potassium 4.1 mEq/L (3.5-5.1)
[2017-11-12 04:40] LABS: Platelet Count 28 K/mcL (140-400)
[2017-11-12 05:59] LABS: Anisocytosis 1+ (Not Present); Platelet Estimate Marked Decrease (Normal)
[2017-11-12] MEDS ORDERED: 0.9 % Sodium Chloride 2,000 ML ONE (07:43)
[2017-11-12] MEDS ORDERED: *HR* Heparin 10,000 UNIT/10 ML VIAL ONE (07:43)
[2017-11-12] MEDS: Insulin LISPRO 300 UNITS/3 ML VIAL SQ SCH ×7 (08:04→21:49)
[2017-11-12] MEDS ORDERED: *HR* Heparin 10,000 UNIT/10 ML VIAL IV PRN (08:18)
[2017-11-12] MEDS ORDERED: 0.9 % Sodium Chloride 250 ML IVC PRN (08:18)
[2017-11-12] MEDS: Budesonide/Formoterol 160/4.5 MDI IH SCH ×2 (08:18→19:40)
--- NOTE | 2017-11-12 09:26 | Internal Med Progress Note ---
Date of Encounter: 11/12/17 Time of Encounter: 08:50 - Assessment and plan (1) Diabetes mellitus type 2 in obese Current Visit: Yes Status: Chronic Assessment and plan: FS ACCEPTABLE, CONTINUE TO MONITOR ACHS Patient not requiring any insulin at this time Continue to monitor (2) Acute respiratory failure with hypoxia Current Visit: Yes Status: Resolved Assessment and plan: Resolved NO more resp distress O2 requirement slowly improving, now on 4 L from 10L Multifactorial: Ascites/COPDE/Pneumonia/Pulm edema CXR 11/07 with pulmonary edema and possible pneumonia IR was unable to do thoracentesis -no effusion noted on CXR of 11/[address] done earlier. Continue supplemental O2 as needed - wean as tolerated Prednisone course completed Continue levaquin-Day 6, for total of 7 days (3) Active asthma Current Visit: Yes Status: Chronic Assessment and plan: as above (4) Thrombocytopenia Current Visit: Yes Status: Chronic Assessment and plan: s/p 7 units of pooled pLTS PLT this a.m 20K, no bleeding She has received all procedures well without bleeding. Heme/Onc noted-B12 folate TSH normal, Her hematological problems cannot be reversed given end-stage liver disease For transfusion if PLT <10K, or evidence of bleeding on current numbers, continue to monitor (5) DVT prophylaxis Current Visit: Yes Status: Acute Assessment and plan: SCDs due to thrombocytopenia. (6) Hypertension Current Visit: Yes Status: Chronic Assessment and plan: Continue Norvasc and Propanolol Qualifiers: Hypertension type: essential hypertension Qualified Code(s): I10 - Essential (primary) hypertension (7) Depression Current Visit: Yes Status: Chronic Assessment and plan: continue home meds Qualifiers: Depression Type: major depressive disorder Major depression recurrence: recurrent Active/Remission status: currently active Major depression episode severity: unspecified Qualified Code(s): F33.9 - Major depressive disorder, recurrent, unspecified (8) Cirrhosis of liver with ascites Current Visit: Yes Status: Acute Assessment and plan: 72-year-old female with diabetes, hypertension and liver cirrhosis 2/2 to HENRIQUEZ presenting with SOB and abdominal ascites. No fever, abdominal pain or tenderness or Altered mental status on exam. Child-Shaffer Classification Score: 9 (AO x 3, Ascites, Luis < 2 mg/dL, Albumin < 2.8, INR < 1.7). Dietary education, 2 g per day sodium restricted diet 4 L fluid removed on paracentesis on 11/01 Ascites recollected, s/p paracentensis 11/08 with 1.5 L removed No SBP GI consulted, recommendations appreciated : Noted that she may require TIPS procedure if this is recurrent issue. Continue propranolol AFP was 2, Hepatitis panel negative. No diuretics due to ANTONIO on CKD, Hepatorenal syndrome Qualifiers: Hepatic cirrhosis type: unspecified hepatic cirrhosis Qualified Code(s): K74.60 - Unspecified cirrhosis of liver (9) Hepatorenal syndrome Current Visit: Yes Status: Acute Assessment and plan: management per renal Not on any diuretics at this time continue HD per renal schedule (10) Acute kidney injury superimposed on chronic kidney disease Current Visit: Yes Status: Acute Assessment and plan: As above (11) Fall Current Visit: Yes Status: Acute Assessment and plan: PT.OT eliecer noted- for home health CT head negative Fall precautions Qualifiers: Encounter type: initial encounter Qualified Code(s): W19.XXXA - Unspecified fall, initial encounter (12) Hypersplenism Current Visit: Yes Status: Chronic Assessment and plan: as in liver disease (13) Pancytopenia Current Visit: Yes Status: Acute Assessment and plan: as in thrombocytopenia, continue to monitor RBC transfusion for HB <7 (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 Current Visit: Yes Status: Chronic Assessment and plan: secondary to liver disease/portal HTN Started patient on propranolol 11/07 Continue same (15) Pleural effusion, left Current Visit: Yes Status: Resolved Assessment and plan: Moderate size as seen on CT chest CXR 11/07 with no pleural effusion Continue O2 supplementation (16) Pneumonia Current Visit: Yes Status: Suspected Assessment and plan: Suspected chest x-ray. Patient has no cough, however she has been hypoxic and requiring higher doses of oxygen. Start patient on Levaquin 11/07, renally adjusted-day 6, continue same, for total of 7 days Continue oxygen supplementation by nasal cannula, now on 2L, continue to wean as tolerated. Qualifiers: Pneumonia type: due to unspecified organism Laterality: bilateral Lung location: unspecified part of lung Qualified Code(s): J18.9 - Pneumonia, unspecified organism (17) CHF (congestive heart failure) Current Visit: Yes Status: Acute Assessment and plan: Patient with peristent and worsening hypoxia CXR 11/07 noted for suspected acute CHF/pulmonary edema ECHO on admission showed preserved EF with moderate LVDD Patient cannot tolerate diuretics due to worsening renal function Continue O2 supplementation Per renal , she was started on HD 11/09 Continue management per renal Qualifiers: Heart failure type: diastolic Heart failure chronicity: acute on chronic Qualified Code(s): I50.33 - Acute on chronic diastolic (congestive) heart failure (18) Goals of care, counseling/discussion Current Visit: Yes Status: Acute Assessment and plan: Patient is full code discussed with patient about the prognosis of her diagnoses. She is wanting to see if hd will help her kidney function intermediate, she wants to be referred for liver transplant at some point in the near future - Time Spent With Patient Total time spent is greater than 50% in coordination of care (as documented) at patient's floor/unit and/or counseling patient: - Subjective Interval history: Seen and evaluated at the bedside She is being managed for decompensated liver cirrhosis with ascites, pleural effusion, Type II heptorenal syndrome, ANTONIO on CKD, She also has pancytopenia with PLT <30,000 which has precluded her from getting any procedures She is s/p paracentensis with 4L removed 11/01 She has no new complains, she is ambulatory Her renal function continues to worsen Repeat CXR done 11/07 shows possible pneumonia vs acute CHF, she was started on Levquin She is seen and evaluated during paracentensis 11/08, 1.5L of fluid was removed Hypoxia is improving on current threrapy Gastroenterology, nephrology are following She is seen and examined at the bedside this morning, and denies new complains, she feel relieved with abdominal distension and she reports her breathing has improved She sits OOB to chair daily 11/09: The patient continues to complain of nausea, with dry heaves, and BUN this morning is >130 and creatinine continues to worsen. She is alert and oriented. Liver Function test remains within normal limits. Platelet count this morning is 6000. She received temporary right internal jugular hemodialysis catheter/12/21. She will be started on hemodialysis today per Nephrology. 11/10: Seen and examined at the bedside. Nephrology input appreciated. Going for dialysis today. Respiratory status continues to improve. Platelet is stable 11/11: Seen and examined at bedside. Received HD 11/10. NO HD scheduled for today. BUN slightly improving Patient reports nasuea is improving O2 requirement is minimal PLT back to baseline <20, 19 this a.m, no evidence of bleeding 11/12: Seen and evaluated at bedside She is pending HD today She is again educated about her diagnoses and her goals of care is to pursue a liver transplant, recommendations made by GI were explained to her and she verbalized understanding Her respiratory status is stable BUN/Cr slightly worsened PLT stable at 20, no bleeding - Constitutional Vitals: Temp Pulse Resp BP Pulse Ox 97.5 F L 56 18 143/68 94 11/12/17 07:22 11/12/17 07:22 11/12/17 08:20 11/12/17 07:22 11/12/17 08:20 General appearance: Present: cooperative, A&O X 3, morbidly obese, no acute distress, answers questions appropriately - Head Head exam: Present: atraumatic (alopecia), normocephalic - Eye Eye exam: Present: PERRL, conjuntiva pink, sclera anicteric Pupils: Present: PERRL - Neck Additional comments: Vinny Farooq, surrounding dried blod on dressing (per RN, the HD nurses will change the dressing) - Respiratory Respiratory exam: Present: CTAB. Absent: accessory muscle use, rales, rhonchi, wheezes - Cardiovascular Cardiovascular exam: Present: RRR, +S1, +S2. Absent: diastolic murmur, gallop, rubs, systolic murmur - GI/Abdominal GI/Abdominal exam: Present: normal bowel sounds, soft, no peritoneal signs. Absent: distended, tenderness - Extremities Exam Extremities exam: Present: warm, radial pulses palpable and symmetrical. Absent : calf tenderness, cyanotic, pedal edema - Neurological Exam Neurological exam: Present: alert, CN II-XII intact, oriented X3, no focal deficits. Absent: pronater drift, facial droop, speech deficit - Skin Skin exam: Present: dry, intact Internal Medicine: Result - Labs CBC & Chem 7: 11/12/17 04:00 11/12/17 04:00 Labs: Short CBC 11/12/17 Range/Units 04:00 WBC 2.7 L (4.3-11.1) K/mcL Hgb 8.6 L (11.5-15.4) g/dL Hct 25.6 L (35.3-44.9) % Plt Count 28 L* (140-400) K/mcL Neutrophils # 1.9 (1.6-8.9) K/mcL BMP 11/12/17 04:00 Sodium 133 L Potassium 4.1 Chloride 102 Carbon Dioxide 28 BUN 89 H Creatinine 4.23 H Glucose 137 H Calcium 9.0 - ABG Interpretation ABG results: PT/INR, D-dimer PT 18.3 Seconds (9.4-12.1) H 11/05/17 06:33 Consult Discharge Plan - Plan Referrals: Rashawn Michaels MD [Non-Partnered Physician] - 11/13/17 3:15 pm (Please follow up a sschedule...)
--- NOTE | 2017-11-12 11:27 | Nephrology Progress Note ---
Date of Encounter: 11/12/17 Time of Encounter: 11:25 - Assessment and Plan (1) Acute kidney injury superimposed on chronic kidney disease Current Visit: Yes Status: Acute Patient with ANTONIO on CKD. . Avoid nephrotoxins. Adjust medications for renal function. Patient was seen on dialysis. Will check for dialysis needs on Sunday. (2) Cirrhosis of liver with ascites Current Visit: Yes Status: Acute Qualifiers: Hepatic cirrhosis type: unspecified hepatic cirrhosis Qualified Code(s): K74.60 - Unspecified cirrhosis of liver Subjective Principal diagnosis: antonio on ckd Interval history: Patient seen. She feels that her breathing is better. She was seen on dialysis. Objective - Vital Signs Vital signs: Vital Signs Temp Pulse Resp BP Pulse Ox 11/12/17 09:50 157/67 11/12/17 09:35 97.5 F L 17 154/71 11/12/17 08:20 18 94 11/12/17 07:22 97.5 F L 56 18 143/68 95 11/12/17 04:24 97.7 F 54 18 121/53 94 11/11/17 23:20 97.6 F 53 18 108/49 94 11/11/17 22:05 16 95 11/11/17 20:24 97.8 F 71 16 134/75 96 11/11/17 15:42 97.7 F 60 18 122/58 94 11/11/17 11:56 98.1 F 59 17 121/72 95 Intake and Output 11/11/17 11/12/17 11/12/17 23:59 07:59 15:59 Intake Total 0 / 0 740 / 740 Balance 0 / 0 740 / 740 Intake: Oral 0 / 0 140 / 140 Intake, Rinseback and Flushes 600 / 600 Other: Meal Breakfast Percent of Meal Consumed 25% Weight 101.6 kg Blood Glucose* 159 148 Hemodialysis Net Fluid Removed 329 (mL) Patient Weight 11/12/17 23:59 Weight 101.6 kg - General Appearance General appearance: Present: well-developed, well-nourished Integumentary: Present: warm and dry Neurologic: Present: alert and oriented x3 Psychiatric: Present: mood/affect appropriate - Lab 11/12/17 04:00 11/12/17 04:00 Most recent lab results Calcium 9.0 mg/dL (8.6-10.3) 11/12/17 04:00 Phosphorus 4.7 mg/dL (2.7-4.5) H 11/01/17 04:47 Magnesium 2.1 mg/dL (1.6-2.6) 11/01/17 04:47 Urine Creatinine 98 mg/dL 10/31/17 05:45 Urine Sodium 26.3 mEq/L 11/03/17 16:08 Urine Total Protein 76 mg/dL (1-14) H 10/31/17 05:45 Consult Discharge Plan - Plan Referrals: Rashawn Michaels MD [Non-Partnered Physician] - 11/13/17 3:15 pm (Please follow up a sschedule...)
[2017-11-12] MEDS: amLODIPine 5 MG TABLET PO SCH (17:52)
[2017-11-12] MEDS ORDERED: Sennosides/Docusate Sodium TABLET PO PRN (18:04)
[2017-11-12] MEDS: Insulin DETEMIR 100 UNIT/ML X5UNITS SQ SCH (21:49)
[2017-11-13] MEDS: Ondansetron 4 MG/2 ML VIAL IVP PRN (02:05)
[2017-11-13 04:26] LABS: Eosinophils % 2.2 %; Hemoglobin 9.1 g/dL (11.5-15.4); Mean Corpuscular Volume 96.1 fL (83.0-100.0)
[2017-11-13 04:28] LABS: Eosinophils # 0.1 K/mcL (0.0-0.6); Hematocrit 26.8 % (35.3-44.9); Immature Granulocytes % 0.6 % (0-4); Immature Platelets 2.5 % (1.1-6.1); Lymphocytes # 0.4 K/mcL (0.6-4.6); Lymphocytes % 12.4 %; Mean Corpuscular Hemoglobin 32.6 pg (28.0-33.3); Mean Platelet Volume 10.1 fL (9.4-12.4); Monocytes # 0.4 K/mcL (0.0-1.3); Monocytes % 11.8 %; Nucleated Red Blood Cells 0.6 /100 WBC (0); Red Blood Count 2.79 M/mcL (3.82-4.97); Red Cell Distribution Width 15.9 % (11.5-14.5)
[2017-11-13 04:34] LABS: Neutrophils # 2.3 K/mcL (1.6-8.9)
[2017-11-13 04:36] LABS: Platelet Count 24 K/mcL (140-400)
[2017-11-13 04:39] LABS: Calcium 9.1 mg/dL (8.6-10.3)
[2017-11-13] MEDS: Insulin LISPRO 300 UNITS/3 ML VIAL SQ SCH ×7 (07:35→21:22)
[2017-11-13] MEDS: Budesonide/Formoterol 160/4.5 MDI IH SCH ×2 (07:55→19:43)
--- NOTE | 2017-11-13 08:02 | Internal Med Progress Note ---
Date of Encounter: 11/13/17 Time of Encounter: 08:00 - Assessment and plan (1) Acute respiratory failure with hypoxia Current Visit: Yes Status: Resolved Assessment and plan: Multifactorial, secondary to atypical pneumonia, pulmonary edema, left pleural effusion O2 requirement slowly improving, now on 2 L from 10L CXR 11/07 with pulmonary edema and possible pneumonia IR was unable to do thoracentesis -no effusion noted on CXR of 11/[address] done earlier. Continue supplemental O2 as needed - wean as tolerated Prednisone course completed Completed [facility], for total of 7 days (2) Active asthma Current Visit: Yes Status: Chronic Assessment and plan: Stable (3) Thrombocytopenia Current Visit: Yes Status: Chronic Assessment and plan: s/p 7 units of pooled pLTS PLT this a.m 20K, no bleeding She has received all procedures well without bleeding. Heme/Onc noted-B12 folate TSH normal, Her hematological problems cannot be reversed given end-stage liver disease For transfusion if PLT <10K, or evidence of bleeding on current numbers, continue to monitor (4) DVT prophylaxis Current Visit: Yes Status: Acute Assessment and plan: SCDs due to thrombocytopenia. (5) Hypertension Current Visit: Yes Status: Chronic Assessment and plan: Continue Norvasc and Propanolol Qualifiers: Hypertension type: essential hypertension Qualified Code(s): I10 - Essential (primary) hypertension (6) Depression Current Visit: Yes Status: Chronic Assessment and plan: continue home meds Qualifiers: Depression Type: major depressive disorder Major depression recurrence: recurrent Active/Remission status: currently active Major depression episode severity: unspecified Qualified Code(s): F33.9 - Major depressive disorder, recurrent, unspecified (7) Cirrhosis of liver with ascites Current Visit: Yes Status: Acute Assessment and plan: 72-year-old female with diabetes, hypertension and liver cirrhosis 2/2 to HENRIQUEZ presenting with SOB and abdominal ascites. No fever, abdominal pain or tenderness or Altered mental status on exam. Child-Shaffer Classification Score: 9 (AO x 3, Ascites, Luis < 2 mg/dL, Albumin < 2.8, INR < 1.7). Dietary education, 2 g per day sodium restricted diet 4 L fluid removed on paracentesis on 11/01 Ascites recollected, s/p paracentensis 11/08 with 1.5 L removed No SBP GI consulted, recommendations appreciated : Noted that she may require TIPS procedure if this is recurrent issue. Continue propranolol AFP was 2, Hepatitis panel negative. No diuretics due to ANTONIO on CKD, Hepatorenal syndrome Qualifiers: Hepatic cirrhosis type: unspecified hepatic cirrhosis Qualified Code(s): K74.60 - Unspecified cirrhosis of liver (8) Hepatorenal syndrome Current Visit: Yes Status: Acute Assessment and plan: management per renal Not on any diuretics continue HD per renal schedule (9) Acute kidney injury superimposed on chronic kidney disease Current Visit: Yes Status: Acute Assessment and plan: As above (10) Fall Current Visit: Yes Status: Acute Assessment and plan: PT.OT eval noted- for home health CT head negative Fall precautions Qualifiers: Encounter type: initial encounter Qualified Code(s): W19.XXXA - Unspecified fall, initial encounter (11) Hypersplenism Current Visit: Yes Status: Chronic Assessment and plan: as in liver disease (12) Pancytopenia Current Visit: Yes Status: Acute Assessment and plan: Possibly secondary to end-stage liver disease RBC transfusion for HB <7 (13) Gastric varices without bleeding Current Visit: Yes Status: Chronic Assessment and plan: secondary to liver disease/portal HTN Started patient on propranolol 11/07 Continue same (14) Pleural effusion, left Current Visit: Yes Status: Resolved Assessment and plan: Moderate size as seen on CT chest CXR 11/07 with no pleural effusion Continue O2 supplementation (15) Pneumonia Current Visit: Yes Status: Suspected Assessment and plan: Suspected chest x-ray. Patient has no cough, however she has been hypoxic and requiring higher doses of oxygen. Started Levaquin on 11/07, renally adjusted-day 7 out of 7 Continue oxygen supplementation by nasal cannula, now on 2L, continue to wean as tolerated. Chest x-ray from November 07 showed: Cardiomegaly and bilateral diffuse interstitial and alveolar opacities which may represent acute congestive heart failure versus possible atypical pneumonia. Qualifiers: Pneumonia type: due to unspecified organism Laterality: bilateral Lung location: unspecified part of lung Qualified Code(s): J18.9 - Pneumonia, unspecified organism (16) CHF (congestive heart failure) Current Visit: Yes Status: Acute Assessment and plan: Patient with peristent g hypoxia CXR 11/07 noted for suspected acute CHF/pulmonary edema ECHO on admission showed preserved EF with moderate LVDD Patient cannot tolerate diuretics due to worsening renal function Continue O2 supplementation Per renal , she was started on HD 11/09 Qualifiers: Heart failure type: diastolic Heart failure chronicity: acute on chronic Qualified Code(s): I50.33 - Acute on chronic diastolic (congestive) heart failure (17) Goals of care, counseling/discussion Current Visit: Yes Status: Acute Assessment and plan: Patient is full code discussed with patient about the prognosis of her diagnoses. She is wanting to see if hd will help her kidney function detention, she wants to be referred for liver transplant at some point in the near future (18) Diabetes mellitus type 2 in obese Current Visit: Yes Status: Chronic Assessment and plan: FS ACCEPTABLE, CONTINUE TO MONITOR ACHS Patient not requiring any insulin r - Time Spent With Patient Total time spent is greater than 50% in coordination of care (as documented) at patient's floor/unit and/or counseling patient: - Subjective Interval history: denies any pain, no SOB or CP , no fever, no bleeding, no abdominal pain or dysuria - Constitutional Vitals: Temp Pulse Resp BP Pulse Ox 97.7 F 54 18 129/65 95 11/13/17 07:06 11/13/17 07:06 11/13/17 07:56 11/13/17 07:06 11/13/17 07:56 General appearance: Present: cooperative, A&O X 3, morbidly obese, no acute distress, answers questions appropriately - Head Head exam: Present: atraumatic, normocephalic Additional comments: Right IJ dialysis catheter - Eye Eye exam: Present: PERRL, conjuntiva pink, sclera anicteric Pupils: Present: PERRL - Neck Neck exam general surgery: Present: supple, trachea midline. Absent: lymphadenopathy - Respiratory Respiratory exam: Present: CTAB. Absent: accessory muscle use, rales, rhonchi, wheezes - Cardiovascular Cardiovascular exam: Present: RRR, +S1, +S2. Absent: diastolic murmur, gallop, rubs, systolic murmur - GI/Abdominal GI/Abdominal exam: Present: distended (Ascites less prominent), normal bowel sounds, soft, no peritoneal signs. Absent: tenderness - Extremities Exam Extremities exam: Present: warm, radial pulses palpable and symmetrical. Absent : calf tenderness, cyanotic, pedal edema - Neurological Exam Neurological exam: Present: CN II-XII intact, oriented X3, no focal deficits. Absent: pronater drift, facial droop, speech deficit - Skin Skin exam: Present: dry, intact Internal Medicine: Result - Labs CBC & Chem 7: 11/13/17 04:00 11/13/17 04:00 Labs: Short CBC 11/13/17 Range/Units 04:00 WBC 3.2 L (4.3-11.1) K/mcL Hgb 9.1 L (11.5-15.4) g/dL Hct 26.8 L (35.3-44.9) % Plt Count 24 L* (140-400) K/mcL Neutrophils # 2.3 (1.6-8.9) K/mcL BMP 11/13/17 04:00 Sodium 135 L Potassium 4.0 Chloride 99 Carbon Dioxide 28 BUN 49 H Creatinine 3.35 H Glucose 129 H Calcium 9.1 - ABG Interpretation ABG results: PT/INR, D-dimer PT 18.3 Seconds (9.4-12.1) H 11/05/17 06:33 Consult Discharge Plan - Plan Referrals: Rashawn Michaels MD [Non-Partnered Physician] - 11/13/17 3:15 pm (Please follow up a sschedule...)
[2017-11-13] MEDS: amLODIPine 5 MG TABLET PO SCH (09:05)
--- NOTE | 2017-11-13 09:21 | Nephrology Progress Note ---
Date of Encounter: 11/13/17 Time of Encounter: 09:19 - Assessment and Plan (1) Acute kidney injury superimposed on chronic kidney disease Current Visit: Yes Status: Acute Plan for HD tomorrow Renal diet-ordered Avoid nephrotoxins if possible (2) Cirrhosis of liver with ascites Current Visit: Yes Status: Acute per primary team Qualifiers: Hepatic cirrhosis type: unspecified hepatic cirrhosis Qualified Code(s): K74.60 - Unspecified cirrhosis of liver (3) Pancytopenia Current Visit: Yes Status: Acute Hgb 9.1 per primary team Subjective Principal diagnosis: howie on ckd Interval history: Patient seen and examined. Talking on phone, states she is feeling well today Objective - Vital Signs Vital signs: Vital Signs Temp Pulse Resp BP Pulse Ox 11/13/17 07:56 18 95 11/13/17 07:06 97.7 F 54 18 129/65 97 11/13/17 04:02 97.7 F 54 16 146/77 97 11/13/17 00:03 97.7 F 54 16 127/70 94 11/12/17 20:15 98.5 F 62 16 121/58 94 11/12/17 19:41 18 97 11/12/17 16:29 98.0 F 62 17 122/57 96 11/12/17 13:15 97.4 F L 17 144/64 11/12/17 13:05 122/62 11/12/17 12:50 121/58 11/12/17 12:35 130/65 11/12/17 12:20 129/63 11/12/17 12:05 144/71 11/12/17 11:50 138/65 11/12/17 11:35 153/71 11/12/17 11:20 141/68 11/12/17 11:05 149/73 11/12/17 10:50 153/68 11/12/17 10:35 151/68 11/12/17 10:20 153/68 11/12/17 10:05 148/69 11/12/17 09:50 157/67 11/12/17 09:35 97.5 F L 17 154/71 Intake and Output 11/12/17 11/13/17 11/13/17 23:59 07:59 15:59 Output Total 550 / 550 Balance -550 / -550 Output: Catheter 550 / 550 Other: Stool Size Small Stool Consistency formed Stool Color Brown Weight 102 kg Blood Glucose* 204 143 Patient Weight 11/13/17 23:59 Weight 102 kg - General Appearance General appearance: Present: well-developed, well-nourished EENT: Present: ATNC, mucous membranes moist, vision intact Neck: Present: supple Respiratory: Present: clear Cardiology: Present: no edema, normal S1, normal S2 Dialysis Vascular Access: Venous Catheter Gastrointestinal: Present: no tenderness, no guarding Integumentary: Present: warm and dry Neurologic: Present: alert and oriented x3 Psychiatric: Present: mood/affect appropriate, cooperative - Lab 11/13/17 04:00 11/13/17 04:00 Most recent lab results Calcium 9.1 mg/dL (8.6-10.3) 11/13/17 04:00 Phosphorus 4.7 mg/dL (2.7-4.5) H 11/01/17 04:47 Magnesium 2.1 mg/dL (1.6-2.6) 11/01/17 04:47 Urine Creatinine 98 mg/dL 10/31/17 05:45 Urine Sodium 26.3 mEq/L 11/03/17 16:08 Urine Total Protein 76 mg/dL (1-14) H 10/31/17 05:45 Consult Discharge Plan - Plan Referrals: Rashawn Michaels MD [Non-Partnered Physician] - 11/13/17 3:15 pm (Please follow up a sschedule...)
[2017-11-13] MEDS: levoFLOXacin 500 MG TABLET PO SCH (12:07)
[2017-11-13] MEDS: Insulin DETEMIR 100 UNIT/ML X5UNITS SQ SCH (21:24)
[2017-11-14] MEDS: Insulin LISPRO 300 UNITS/3 ML VIAL SQ SCH ×7 (07:06→20:35)
[2017-11-14] MEDS: Budesonide/Formoterol 160/4.5 MDI IH SCH ×2 (07:37→20:10)
[2017-11-14 08:13] LABS: Calcium 8.7 mg/dL (8.6-10.3); Potassium 4.2 mEq/L (3.5-5.1)
[2017-11-14 08:15] LABS: Mean Corpuscular HGB Conc 33.3 g/dL (31.6-35.5)
[2017-11-14 08:16] LABS: Hematocrit 24.6 % (35.3-44.9); Hemoglobin 8.2 g/dL (11.5-15.4); Mean Corpuscular Hemoglobin 32.2 pg (28.0-33.3); Mean Corpuscular Volume 96.5 fL (83.0-100.0); Mean Platelet Volume 11.4 fL (9.4-12.4); Red Blood Count 2.55 M/mcL (3.82-4.97); Red Cell Distribution Width 15.9 % (11.5-14.5)
[2017-11-14 08:21] LABS: Platelet Count 16 K/mcL (140-400)
--- NOTE | 2017-11-14 08:52 | Internal Med Progress Note ---
Date of Encounter: 11/14/17 Time of Encounter: 08:51 - Assessment and plan (1) Acute respiratory failure with hypoxia Current Visit: Yes Status: Resolved Assessment and plan: Multifactorial, secondary to atypical pneumonia, pulmonary edema, left pleural effusion O2 requirement slowly improving, now on 2 L from 10L CXR 11/07 with pulmonary edema and possible pneumonia IR was unable to do thoracentesis -no effusion noted on CXR of 11/[address] done earlier. Continue supplemental O2 as needed - wean as tolerated Prednisone course completed Completed [facility], for total of 7 days (2) Active asthma Current Visit: Yes Status: Chronic Assessment and plan: Stable (3) Thrombocytopenia Current Visit: Yes Status: Chronic Assessment and plan: s/p 7 units of pooled pLTS PLT still low, no bleeding She has received all procedures well without bleeding. Heme/Onc noted-B12 folate TSH normal, Her hematological problems cannot be reversed given end-stage liver disease For transfusion if PLT <10K, or evidence of bleeding on current numbers, continue to monitor (4) DVT prophylaxis Current Visit: Yes Status: Acute Assessment and plan: SCDs due to thrombocytopenia. (5) Hypertension Current Visit: Yes Status: Chronic Assessment and plan: Continue Norvasc and Propanolol Qualifiers: Hypertension type: essential hypertension Qualified Code(s): I10 - Essential (primary) hypertension (6) Depression Current Visit: Yes Status: Chronic Assessment and plan: continue home meds Qualifiers: Depression Type: major depressive disorder Major depression recurrence: recurrent Active/Remission status: currently active Major depression episode severity: unspecified Qualified Code(s): F33.9 - Major depressive disorder, recurrent, unspecified (7) Cirrhosis of liver with ascites Current Visit: Yes Status: Acute Assessment and plan: 72-year-old female with diabetes, hypertension and liver cirrhosis 2/2 to HENRIQUEZ presenting with SOB and abdominal ascites. No fever, abdominal pain or tenderness or Altered mental status on exam. Child-Shaffer Classification Score: 9 (AO x 3, Ascites, Luis < 2 mg/dL, Albumin < 2.8, INR < 1.7). Dietary education, 2 g per day sodium restricted diet 4 L fluid removed on paracentesis on 11/01 Ascites recollected, s/p paracentensis 11/08 with 1.5 L removed No SBP GI consulted, recommendations appreciated : Noted that she may require TIPS procedure if this is recurrent issue. Continue propranolol AFP was 2, Hepatitis panel negative. No diuretics due to ANTONIO on CKD, Hepatorenal syndrome Qualifiers: Hepatic cirrhosis type: unspecified hepatic cirrhosis Qualified Code(s): K74.60 - Unspecified cirrhosis of liver (8) Hepatorenal syndrome Current Visit: Yes Status: Acute Assessment and plan: management per renal Not on any diuretics continue HD per renal schedule (9) Acute kidney injury superimposed on chronic kidney disease Current Visit: Yes Status: Acute Assessment and plan: As above (10) Fall Current Visit: Yes Status: Acute Assessment and plan: PT.OT eliecer noted- for home health CT head negative Fall precautions Qualifiers: Encounter type: initial encounter Qualified Code(s): W19.XXXA - Unspecified fall, initial encounter (11) Hypersplenism Current Visit: Yes Status: Chronic Assessment and plan: as in liver disease (12) Pancytopenia Current Visit: Yes Status: Acute Assessment and plan: Possibly secondary to end-stage liver disease RBC transfusion for HB <7 (13) Gastric varices without bleeding Current Visit: Yes Status: Chronic Assessment and plan: secondary to liver disease/portal HTN Started patient on propranolol 11/07 Continue same (14) Pleural effusion, left Current Visit: Yes Status: Resolved Assessment and plan: Moderate size as seen on CT chest CXR 11/07 with no pleural effusion Continue O2 supplementation (15) Pneumonia Current Visit: Yes Status: Suspected Assessment and plan: Suspected chest x-ray. Patient has no cough, however she has been hypoxic and requiring higher doses of oxygen. Started Levaquin on 11/07, renally adjusted-day 7 out of 7 Continue oxygen supplementation by nasal cannula, now on 2L, continue to wean as tolerated. Chest x-ray from November 07 showed: Cardiomegaly and bilateral diffuse interstitial and alveolar opacities which may represent acute congestive heart failure versus possible atypical pneumonia. Qualifiers: Pneumonia type: due to unspecified organism Laterality: bilateral Lung location: unspecified part of lung Qualified Code(s): J18.9 - Pneumonia, unspecified organism (16) CHF (congestive heart failure) Current Visit: Yes Status: Acute Assessment and plan: Patient with peristent g hypoxia CXR 11/07 noted for suspected acute CHF/pulmonary edema ECHO on admission showed preserved EF with moderate LVDD Patient cannot tolerate diuretics due to worsening renal function Continue O2 supplementation Per renal , she was started on HD 11/09 Qualifiers: Heart failure type: diastolic Heart failure chronicity: acute on chronic Qualified Code(s): I50.33 - Acute on chronic diastolic (congestive) heart failure (17) Goals of care, counseling/discussion Current Visit: Yes Status: Acute Assessment and plan: Patient is full code discussed with patient about the prognosis of her diagnoses. 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 Qualified for Bipap Qualifiers: COPD type: unspecified COPD Qualified Code(s): J44.9 - Chronic obstructive pulmonary disease, unspecified - Time Spent With Patient Total time spent is greater than 50% in coordination of care (as documented) at patient's floor/unit and/or counseling patient: - Subjective Interval history: No signs of bleeding. denies any pain, no SOB or CP , no fever, no abdominal pain or dysuria - Constitutional Vitals: Temp Pulse Resp BP Pulse Ox 97.9 F 59 18 121/52 98 11/14/17 06:56 11/14/17 06:56 11/14/17 07:37 11/14/17 06:56 11/14/17 07:37 General appearance: Present: cooperative, A&O X 3, morbidly obese, no acute distress, answers questions appropriately Exam: - Head Head exam: Present: atraumatic, normocephalic Additional comments: Right IJ dialysis catheter - Eye Eye exam: Present: PERRL, conjuntiva pink, sclera anicteric Pupils: Present: PERRL - Neck Neck exam general surgery: Present: supple, trachea midline. Absent: lymphadenopathy - Respiratory Respiratory exam: Present: CTAB. Absent: accessory muscle use, rales, rhonchi, wheezes - Cardiovascular Cardiovascular exam: Present: RRR, +S1, +S2. Absent: diastolic murmur, gallop, rubs, systolic murmur - GI/Abdominal GI/Abdominal exam: Present: distended (Ascites less prominent), normal bowel sounds, soft, no peritoneal signs. Absent: tenderness - Extremities Exam Extremities exam: Present: warm, radial pulses palpable and symmetrical. Absent : calf tenderness, cyanotic, pedal edema - Neurological Exam Neurological exam: Present: CN II-XII intact, oriented X3, no focal deficits. Absent: pronater drift, facial droop, speech deficit - Skin Skin exam: Present: dry, intact Internal Medicine: Result - Labs CBC & Chem 7: 11/14/17 06:52 11/14/17 06:52 Labs: Short CBC 11/14/17 Range/Units 06:52 WBC 1.6 L (4.3-11.1) K/mcL Hgb 8.2 L (11.5-15.4) g/dL Hct 24.6 L (35.3-44.9) % Plt Count 16 L* (140-400) K/mcL BMP 11/14/17 06:52 Sodium 136 Potassium 4.2 Chloride 100 Carbon Dioxide 29 BUN 62 H Creatinine 4.29 H Glucose 139 H Calcium 8.7 - ABG Interpretation ABG results: PT/INR, D-dimer PT 18.3 Seconds (9.4-12.1) H 11/05/17 06:33 Consult Discharge Plan - Plan Referrals: Rashawn Michaels MD [Non-Partnered Physician] - 11/22/17 1:45 pm (Please follow up a sschedule...)
[2017-11-14] MEDS ORDERED: 0.9 % Sodium Chloride 250 ML IVC PRN (10:17)
[2017-11-14] MEDS ORDERED: 0.9 % Sodium Chloride 1,000 ML PRIME SCH (10:30)
--- NOTE | 2017-11-14 12:39 | Nephrology Progress Note ---
Date of Encounter: 11/14/17 Time of Encounter: 12:38 - Assessment and Plan (1) Acute kidney injury superimposed on chronic kidney disease Current Visit: Yes Status: Acute Patient with ANTONIO on CKD. . Avoid nephrotoxins. Adjust medications for renal function. Will order tunneled catheter. Will consult SW for outpatient dialysis. (2) Cirrhosis of liver with ascites Current Visit: Yes Status: Acute Qualifiers: Hepatic cirrhosis type: unspecified hepatic cirrhosis Qualified Code(s): K74.60 - Unspecified cirrhosis of liver Subjective Principal diagnosis: antonio on ckd Interval history: Patient seen. She feels that her breathing is better. She wants to continue dialysis as an outpatient. She was seen on dialysis. Objective - Vital Signs Vital signs: Vital Signs Temp Pulse Resp BP Pulse Ox 11/14/17 11:20 98.0 F 58 17 123/59 98 11/14/17 09:06 96 11/14/17 07:37 18 98 11/14/17 06:56 97.9 F 59 16 121/52 98 11/14/17 04:34 98 F 57 16 140/63 96 11/13/17 23:47 97.7 F 57 17 138/76 95 11/13/17 19:47 98.4 F 60 17 129/67 95 11/13/17 19:43 16 96 11/13/17 19:40 94 11/13/17 16:00 97.8 F 59 18 135/73 94 Intake and Output 11/13/17 11/14/17 11/14/17 23:59 07:59 15:59 Intake Total 0 / 0 120 / 120 Output Total 200 / 200 Balance -200 / -200 120 / 120 Intake: Oral 0 / 0 120 / 120 Output: Catheter 200 / 200 Other: Meal Breakfast Percent of Meal Consumed 40% Weight 100 kg Blood Glucose* 168 139 192 Patient Weight 11/14/17 23:59 Weight 100 kg - General Appearance General appearance: Present: well-developed, well-nourished, obese EENT: Present: ATNC Cardiology: Present: edema, regular rate Dialysis Vascular Access: Venous Catheter Neurologic: Present: alert and oriented x3 Psychiatric: Present: mood/affect appropriate - Lab 11/14/17 06:52 11/14/17 06:52 Most recent lab results Calcium 8.7 mg/dL (8.6-10.3) 11/14/17 06:52 Phosphorus 4.7 mg/dL (2.7-4.5) H 11/01/17 04:47 Magnesium 2.1 mg/dL (1.6-2.6) 11/01/17 04:47 Urine Creatinine 98 mg/dL 10/31/17 05:45 Urine Sodium 26.3 mEq/L 11/03/17 16:08 Urine Total Protein 76 mg/dL (1-14) H 10/31/17 05:45 - VTE Documentation of Mechanical Device: Intermittent pneumatic compression device Consult Discharge Plan - Plan Referrals: Rashawn Michaels MD [Non-Partnered Physician] - 11/22/17 1:45 pm (Please follow up a sschedule...)
[2017-11-14] MEDS: amLODIPine 5 MG TABLET PO SCH (19:27)
[2017-11-14] MEDS: Insulin DETEMIR 100 UNIT/ML X5UNITS SQ SCH (20:27)
[2017-11-15 05:15] LABS: Hematocrit 23.6 % (35.3-44.9); Hemoglobin 7.9 g/dL (11.5-15.4); Mean Corpuscular HGB Conc 33.5 g/dL (31.6-35.5); Mean Corpuscular Hemoglobin 32.4 pg (28.0-33.3); Mean Corpuscular Volume 96.7 fL (83.0-100.0); Mean Platelet Volume 10.6 fL (9.4-12.4); Red Blood Count 2.44 M/mcL (3.82-4.97)
[2017-11-15 05:18] LABS: Platelet Count 18 K/mcL (140-400)
[2017-11-15 05:35] LABS: Calcium 8.6 mg/dL (8.6-10.3); Potassium 3.9 mEq/L (3.5-5.1)
[2017-11-15] MEDS ORDERED: 0.9 % Sodium Chloride 250 ML ONE (07:01)
[2017-11-15] MEDS: Insulin LISPRO 300 UNITS/3 ML VIAL SQ SCH ×7 (08:34→20:44)
[2017-11-15] MEDS: amLODIPine 5 MG TABLET PO SCH (08:37)
--- NOTE | 2017-11-15 09:42 | Internal Med Progress Note ---
Date of Encounter: 11/15/17 Time of Encounter: 09:40 - Assessment and plan (1) Acute kidney injury superimposed on chronic kidney disease Current Visit: Yes Status: Acute Assessment and plan: In need of dialysis transfused platelets to schedule permanent catheter in the morning (2) Acute respiratory failure with hypoxia Current Visit: Yes Status: Resolved Assessment and plan: Multifactorial, secondary to atypical pneumonia, pulmonary edema, left pleural effusion O2 requirement slowly improving, now on 2 L from 10L CXR 11/07 with pulmonary edema and possible pneumonia IR was unable to do thoracentesis -no effusion noted on CXR of 11/[address] done earlier. Continue supplemental O2 as needed - wean as tolerated Prednisone course completed Completed 7 days of Levaquin (3) Active asthma Current Visit: Yes Status: Chronic Assessment and plan: Stable (4) Thrombocytopenia Current Visit: Yes Status: Chronic Assessment and plan: s/p 7 units of pooled pLTS Carlos receive 3 more units tonight in order to have a permanent dialysis catheter placed PLT still low, no bleeding Heme/Onc noted-B12 folate TSH normal, Her hematological problems cannot be reversed given end-stage liver disease For transfusion if PLT <10K, or evidence of bleeding on current numbers, continue to monitor (5) DVT prophylaxis Current Visit: Yes Status: Acute Assessment and plan: SCDs due to thrombocytopenia. (6) Hypertension Current Visit: Yes Status: Chronic Assessment and plan: Continue Norvasc and Propanolol Qualifiers: Hypertension type: essential hypertension Qualified Code(s): I10 - Essential (primary) hypertension (7) Depression Current Visit: Yes Status: Chronic Assessment and plan: continue home meds Qualifiers: Depression Type: major depressive disorder Major depression recurrence: recurrent Active/Remission status: currently active Major depression episode severity: unspecified Qualified Code(s): F33.9 - Major depressive disorder, recurrent, unspecified (8) Cirrhosis of liver with ascites Current Visit: Yes Status: Acute Assessment and plan: 72-year-old female with diabetes, hypertension and liver cirrhosis 2/2 to HENRIQUEZ presenting with SOB and abdominal ascites. No fever, abdominal pain or tenderness or Altered mental status on exam. Child-Shaffer Classification Score: 9 (AO x 3, Ascites, Luis < 2 mg/dL, Albumin < 2.8, INR < 1.7). Dietary education, 2 g per day sodium restricted diet 4 L fluid removed on paracentesis on 11/01 Ascites recollected, s/p paracentensis 11/08 with 1.5 L removed No SBP GI consulted, recommendations appreciated : Noted that she may require TIPS procedure if this is recurrent issue. Continue propranolol AFP was 2, Hepatitis panel negative. No diuretics due to ANTONIO on CKD, Hepatorenal syndrome Qualifiers: Hepatic cirrhosis type: unspecified hepatic cirrhosis Qualified Code(s): K74.60 - Unspecified cirrhosis of liver (9) Hepatorenal syndrome Current Visit: Yes Status: Acute Assessment and plan: management per renal Not on any diuretics continue HD per renal schedule (10) Fall Current Visit: Yes Status: Acute Assessment and plan: PT.OT eliecer noted- for home health CT head negative Fall precautions Qualifiers: Encounter type: initial encounter Qualified Code(s): W19.XXXA - Unspecified fall, initial encounter (11) Hypersplenism Current Visit: Yes Status: Chronic Assessment and plan: as in liver disease (12) Pancytopenia Current Visit: Yes Status: Acute (13) Gastric varices without bleeding Current Visit: Yes Status: Chronic (14) Pleural effusion, left Current Visit: Yes Status: Resolved (15) Pneumonia Current Visit: Yes Status: Suspected Qualifiers: Pneumonia type: due to unspecified organism Laterality: bilateral Lung location: unspecified part of lung Qualified Code(s): J18.9 - Pneumonia, unspecified organism (16) CHF (congestive heart failure) Current Visit: Yes Status: Acute Assessment and plan: Patient with peristent g hypoxia CXR 11/07 noted for suspected acute CHF/pulmonary edema ECHO on admission showed preserved EF with moderate LVDD Patient cannot tolerate diuretics due to worsening renal function Continue O2 supplementation Per renal , she was started on HD 11/09 Qualifiers: Heart failure type: diastolic Heart failure chronicity: acute on chronic Qualified Code(s): I50.33 - Acute on chronic diastolic (congestive) heart failure (17) Goals of care, counseling/discussion Current Visit: Yes Status: Acute Assessment and plan: Patient is full code discussed with patient about the prognosis of her diagnoses. 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 Qualified for Bipap Qualifiers: COPD type: unspecified COPD Qualified Code(s): J44.9 - Chronic obstructive pulmonary disease, unspecified - Time Spent With Patient Total time spent is greater than 50% in coordination of care (as documented) at patient's floor/unit and/or counseling patient: - Subjective Interval history: Nonew complaints, no signs of bleeding. denies any pain, no SOB or CP , no fever, no abdominal pain or dysuria - Constitutional Vitals: Temp Pulse Resp BP Pulse Ox 98.5 F 57 18 126/63 93 11/15/17 07:24 11/15/17 07:24 11/15/17 07:24 11/15/17 07:24 11/15/17 07:24 General appearance: Present: cooperative, A&O X 3, morbidly obese, no acute distress, answers questions appropriately Exam: - Head Head exam: Present: atraumatic, normocephalic Additional comments: Right IJ dialysis catheter - Eye Eye exam: Present: PERRL, conjuntiva pink, sclera anicteric Pupils: Present: PERRL - Neck Neck exam general surgery: Present: supple, trachea midline. Absent: lymphadenopathy - Respiratory Respiratory exam: Present: CTAB. Absent: accessory muscle use, rales, rhonchi, wheezes - Cardiovascular Cardiovascular exam: Present: RRR, +S1, +S2. Absent: diastolic murmur, gallop, rubs, systolic murmur - GI/Abdominal GI/Abdominal exam: Present: distended (Ascites less prominent), normal bowel sounds, soft, no peritoneal signs. Absent: tenderness - Extremities Exam Extremities exam: Present: warm, radial pulses palpable and symmetrical. Absent : calf tenderness, cyanotic, pedal edema - Neurological Exam Neurological exam: Present: CN II-XII intact, oriented X3, no focal deficits. Absent: pronater drift, facial droop, speech deficit - Skin Skin exam: Present: dry, intact Internal Medicine: Result - Labs CBC & Chem 7: 11/15/17 05:00 11/15/17 04:00 Labs: Short CBC 11/15/17 Range/Units 05:00 WBC 1.5 L (4.3-11.1) K/mcL Hgb 7.9 L (11.5-15.4) g/dL Hct 23.6 L (35.3-44.9) % Plt Count 18 L* (140-400) K/mcL BMP 11/15/17 04:00 Sodium 138 Potassium 3.9 Chloride 102 Carbon Dioxide 29 BUN 34 H Creatinine 3.26 H Glucose 136 H Calcium 8.6 - ABG Interpretation ABG results: PT/INR, D-dimer PT 18.3 Seconds (9.4-12.1) H 11/05/17 06:33 - VTE Documentation of Mechanical Device: Intermittent pneumatic compression device Consult Discharge Plan - Plan Referrals: Rashawn Michaels MD [Non-Partnered Physician] - 11/22/17 1:45 pm (Please follow up a sschedule...)
[2017-11-15] MEDS: Budesonide/Formoterol 160/4.5 MDI IH SCH ×2 (10:08→22:00)
--- NOTE | 2017-11-15 10:10 | Nephrology Progress Note ---
Date of Encounter: 11/15/17 Time of Encounter: 10:06 - Assessment and Plan (1) Acute kidney injury superimposed on chronic kidney disease Current Visit: Yes Status: Acute Plts 18 today. 3 plts ordered for late in the day today, to get permacath placed in the morning of 11/16/17. Consult in for Supervisor Public Message Service to get chair time. consult placed for IR. Plan for HD tomorrow Avoid nephrotoxins if possible (2) Cirrhosis of liver with ascites Current Visit: Yes Status: Acute per primary team Qualifiers: Hepatic cirrhosis type: unspecified hepatic cirrhosis Qualified Code(s): K74.60 - Unspecified cirrhosis of liver (3) Pancytopenia Current Visit: Yes Status: Acute Hgb 7.9 down from 8.2. Plts ordered by primary team. Subjective Principal diagnosis: howie on ckd Interval history: Patient seen and examined. Patient wanting to go home, denies any pain. Objective - Vital Signs Vital signs: Vital Signs Temp Pulse Resp BP Pulse Ox 11/15/17 07:24 98.5 F 57 18 126/63 93 11/15/17 04:39 98.1 F 55 16 115/56 94 11/15/17 00:11 98.5 F 69 16 125/75 94 11/14/17 20:59 98.1 F 61 17 135/79 95 11/14/17 20:43 95 11/14/17 20:10 16 95 11/14/17 19:25 98.2 F 20 122/52 11/14/17 19:05 112/55 11/14/17 18:50 117/51 11/14/17 18:35 125/71 11/14/17 18:20 125/71 11/14/17 18:05 127/56 11/14/17 17:50 135/63 11/14/17 17:35 118/54 11/14/17 17:20 120/55 11/14/17 17:05 132/52 11/14/17 16:50 130/62 11/14/17 16:35 123/55 11/14/17 16:20 131/67 11/14/17 16:05 130/63 11/14/17 15:50 128/63 11/14/17 15:35 98.1 F 20 141/66 11/14/17 11:20 98.0 F 58 17 123/59 98 Intake and Output 11/14/17 11/15/17 11/15/17 23:59 07:59 15:59 Intake Total 30 / 30 Output Total 4600 / 4600 0 / 0 Balance -4600 / -4600 30 / 30 Intake: Oral 30 / 30 Output: Urine 0 / 0 0 / 0 Total Dialysis (HD) Output 4600 / 4600 Other: Weight 87 kg Blood Glucose* 179 126 Hemodialysis Net Fluid Removed 4000 (mL) Patient Weight 11/15/17 23:59 Weight 87 kg - General Appearance General appearance: Present: obese, chronically ill, frail EENT: Present: ATNC Neck: Present: supple Respiratory: Present: clear Cardiology: Present: no edema, normal S1, normal S2 Dialysis Vascular Access: Venous Catheter Gastrointestinal: Present: normoactive bowel sounds Integumentary: Present: warm and dry Neurologic: Present: alert and oriented x3 Psychiatric: Present: mood/affect appropriate, cooperative - Lab 11/15/17 05:00 11/15/17 04:00 Most recent lab results Calcium 8.6 mg/dL (8.6-10.3) 11/15/17 04:00 Phosphorus 4.7 mg/dL (2.7-4.5) H 11/01/17 04:47 Magnesium 2.1 mg/dL (1.6-2.6) 11/01/17 04:47 Urine Creatinine 98 mg/dL 10/31/17 05:45 Urine Sodium 26.3 mEq/L 11/03/17 16:08 Urine Total Protein 76 mg/dL (1-14) H 10/31/17 05:45 - VTE Documentation of Mechanical Device: Intermittent pneumatic compression device Consult Discharge Plan - Plan Referrals: Rashawn Michaels MD [Non-Partnered Physician] - 11/22/17 1:45 pm (Please follow up a sschedule...)
[2017-11-15] MEDS: Ondansetron 4 MG/2 ML VIAL IVP PRN (16:44)
[2017-11-15] MEDS: Insulin DETEMIR 100 UNIT/ML X5UNITS SQ SCH (20:44)
[2017-11-16] MEDS ORDERED: 0.9 % Sodium Chloride 250 ML ONE ×4 (03:56→07:57)
[2017-11-16 07:18] LABS: Hematocrit 23.2 % (35.3-44.9); Hemoglobin 7.6 g/dL (11.5-15.4); Mean Corpuscular HGB Conc 32.8 g/dL (31.6-35.5); Mean Corpuscular Hemoglobin 31.9 pg (28.0-33.3); Mean Corpuscular Volume 97.5 fL (83.0-100.0); Mean Platelet Volume 11.1 fL (9.4-12.4); Red Blood Count 2.38 M/mcL (3.82-4.97); Red Cell Distribution Width 16.1 % (11.5-14.5)
[2017-11-16 07:19] LABS: Platelet Count 34 K/mcL (140-400)
[2017-11-16] MEDS: Insulin LISPRO 300 UNITS/3 ML VIAL SQ SCH ×7 (07:32→20:33)
[2017-11-16 07:41] LABS: Calcium 8.9 mg/dL (8.6-10.3); Potassium 4.3 mEq/L (3.5-5.1)
[2017-11-16] MEDS ORDERED: *HR* Heparin 10,000 UNIT/10 ML VIAL IV PRN (08:08)
[2017-11-16] MEDS ORDERED: 0.9 % Sodium Chloride 250 ML IVC PRN (08:08)
[2017-11-16] MEDS ORDERED: 0.9 % Sodium Chloride 1,000 ML PRIME SCH (08:15)
[2017-11-16] MEDS: Pantoprazole 40 MG VIAL IVP SCH (08:28)
--- NOTE | 2017-11-16 09:09 | Internal Med Progress Note ---
Date of Encounter: 11/16/17 Time of Encounter: 09:07 - Assessment and plan (1) Acute kidney injury superimposed on chronic kidney disease Current Visit: Yes Status: Acute Assessment and plan: In need of dialysis Received 3 units of platelets, platelets are still 34, order 2 more units transfused platelets to schedule permanent catheter today by IR (2) Acute respiratory failure with hypoxia Current Visit: Yes Status: Resolved Assessment and plan: Multifactorial, secondary to atypical pneumonia, pulmonary edema, left pleural effusion O2 requirement slowly improving, now on 2 L from 10L CXR 11/07 with pulmonary edema and possible pneumonia IR was unable to do thoracentesis -no effusion noted on CXR of 11/[address] done earlier. Continue supplemental O2 as needed - wean as tolerated Prednisone course completed Completed 7 days of Levaquin (3) Active asthma Current Visit: Yes Status: Chronic Assessment and plan: Stable (4) Thrombocytopenia Current Visit: Yes Status: Chronic Assessment and plan: s/p 7 units of pooled pLTS Carlos receive 3 more units tonight in order to have a permanent dialysis catheter placed PLT still low, no bleeding Heme/Onc noted-B12 folate TSH normal, Her hematological problems cannot be reversed given end-stage liver disease For transfusion if PLT <10K, or evidence of bleeding on current numbers, continue to monitor (5) DVT prophylaxis Current Visit: Yes Status: Acute Assessment and plan: SCDs due to thrombocytopenia. (6) Hypertension Current Visit: Yes Status: Chronic Assessment and plan: Continue Norvasc and Propanolol Qualifiers: Hypertension type: essential hypertension Qualified Code(s): I10 - Essential (primary) hypertension (7) Depression Current Visit: Yes Status: Chronic Assessment and plan: continue home meds Qualifiers: Depression Type: major depressive disorder Major depression recurrence: recurrent Active/Remission status: currently active Major depression episode severity: unspecified Qualified Code(s): F33.9 - Major depressive disorder, recurrent, unspecified (8) Cirrhosis of liver with ascites Current Visit: Yes Status: Acute Assessment and plan: 72-year-old female with diabetes, hypertension and liver cirrhosis 2/2 to HENRIQUEZ presenting with SOB and abdominal ascites. No fever, abdominal pain or tenderness or Altered mental status on exam. Child-Shaffer Classification Score: 9 (AO x 3, Ascites, Luis < 2 mg/dL, Albumin < 2.8, INR < 1.7). Dietary education, 2 g per day sodium restricted diet 4 L fluid removed on paracentesis on 11/01 Ascites recollected, s/p paracentensis 11/08 with 1.5 L removed No SBP GI consulted, recommendations appreciated : Noted that she may require TIPS procedure if this is recurrent issue. Continue propranolol AFP was 2, Hepatitis panel negative. No diuretics due to ANTONIO on CKD, Hepatorenal syndrome Qualifiers: Hepatic cirrhosis type: unspecified hepatic cirrhosis Qualified Code(s): K74.60 - Unspecified cirrhosis of liver (9) Hepatorenal syndrome Current Visit: Yes Status: Acute Assessment and plan: management per renal Not on any diuretics continue HD per renal schedule (10) Fall Current Visit: Yes Status: Acute Assessment and plan: PT.OT eval noted- for home health CT head negative Fall precautions Qualifiers: Encounter type: initial encounter Qualified Code(s): W19.XXXA - Unspecified fall, initial encounter (11) Hypersplenism Current Visit: Yes Status: Chronic Assessment and plan: as in liver disease (12) Pancytopenia Current Visit: Yes Status: Acute Assessment and plan: Possibly secondary to end-stage liver disease RBC transfusion for HB <7 (13) Gastric varices without bleeding Current Visit: Yes Status: Chronic Assessment and plan: secondary to liver disease/portal HTN Started patient on propranolol 11/07 Continue same (14) Pleural effusion, left Current Visit: Yes Status: Resolved Assessment and plan: Moderate size as seen on CT chest CXR 11/07 with no pleural effusion Continue O2 supplementation (15) Pneumonia Current Visit: Yes Status: Suspected Assessment and plan: Suspected chest x-ray. Patient has no cough, however she has been hypoxic and requiring higher doses of oxygen. Started Levaquin on 11/07, renally adjusted-day 7 out of 7 Continue oxygen supplementation by nasal cannula, now on 2L, continue to wean as tolerated. Chest x-ray from November 07 showed: Cardiomegaly and bilateral diffuse interstitial and alveolar opacities which may represent acute congestive heart failure versus possible atypical pneumonia. Qualifiers: Pneumonia type: due to unspecified organism Laterality: bilateral Lung location: unspecified part of lung Qualified Code(s): J18.9 - Pneumonia, unspecified organism (16) CHF (congestive heart failure) Current Visit: Yes Status: Acute Assessment and plan: Patient with peristent g hypoxia CXR 11/07 noted for suspected acute CHF/pulmonary edema ECHO on admission showed preserved EF with moderate LVDD Patient cannot tolerate diuretics due to worsening renal function Continue O2 supplementation Per renal , she was started on HD 11/09 Qualifiers: Heart failure type: diastolic Heart failure chronicity: acute on chronic Qualified Code(s): I50.33 - Acute on chronic diastolic (congestive) heart failure (17) Goals of care, counseling/discussion Current Visit: Yes Status: Acute Assessment and plan: Patient is full code discussed with patient about the prognosis of her diagnoses. 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 Qualified for Bipap Qualifiers: COPD type: unspecified COPD Qualified Code(s): J44.9 - Chronic obstructive pulmonary disease, unspecified - Time Spent With Patient Total time spent is greater than 50% in coordination of care (as documented) at patient's floor/unit and/or counseling patient: - Subjective Interval history: No complaints, no signs of bleeding. denies any pain, no SOB or CP , no fever, no abdominal pain or dysuria - Constitutional Vitals: Temp Pulse Resp BP Pulse Ox 98.1 F 59 18 145/72 96 11/16/17 08:35 11/16/17 08:35 11/16/17 08:35 11/16/17 08:35 11/16/17 08:32 General appearance: Present: cooperative, A&O X 3, morbidly obese, no acute distress, answers questions appropriately Exam: - Head Head exam: Present: atraumatic, normocephalic Additional comments: Right IJ dialysis catheter - Eye Eye exam: Present: PERRL, conjuntiva pink, sclera anicteric Pupils: Present: PERRL - Neck Neck exam general surgery: Present: supple, trachea midline. Absent: lymphadenopathy - Respiratory Respiratory exam: Present: CTAB. Absent: accessory muscle use, rales, rhonchi, wheezes - Cardiovascular Cardiovascular exam: Present: RRR, +S1, +S2. Absent: diastolic murmur, gallop, rubs, systolic murmur - GI/Abdominal GI/Abdominal exam: Present: distended (Ascites less prominent), normal bowel sounds, soft, no peritoneal signs. Absent: tenderness - Extremities Exam Extremities exam: Present: warm, radial pulses palpable and symmetrical. Absent : calf tenderness, cyanotic, pedal edema - Neurological Exam Neurological exam: Present: CN II-XII intact, oriented X3, no focal deficits. Absent: pronater drift, facial droop, speech deficit - Skin Skin exam: Present: dry, intact Internal Medicine: Result - Labs CBC & Chem 7: 11/16/17 04:00 11/16/17 04:00 Labs: Short CBC 11/16/17 Range/Units 04:00 WBC 2.4 L D (4.3-11.1) K/mcL Hgb 7.6 L (11.5-15.4) g/dL Hct 23.2 L (35.3-44.9) % Plt Count 34 L D (140-400) K/mcL BMP 11/16/17 04:00 Sodium 138 Potassium 4.3 Chloride 102 Carbon Dioxide 27 BUN 48 H Creatinine 4.14 H Glucose 132 H Calcium 8.9 - ABG Interpretation ABG results: PT/INR, D-dimer PT 18.3 Seconds (9.4-12.1) H 11/05/17 06:33 - VTE Documentation of Mechanical Device: Intermittent pneumatic compression device Consult Discharge Plan - Plan Referrals: Rashawn Michaels MD [Non-Partnered Physician] - 11/22/17 1:45 pm (Please follow up a sschedule...)
[2017-11-16] MEDS: Budesonide/Formoterol 160/4.5 MDI IH SCH ×2 (10:38→19:56)
[2017-11-16 10:43] LABS: INR 1.7; Prothrombin Time 18.5 Seconds (9.4-12.1)
--- NOTE | 2017-11-16 12:30 | Nephrology Progress Note ---
Date of Encounter: 11/16/17 Time of Encounter: 12:00 - Assessment and Plan (1) Acute kidney injury superimposed on chronic kidney disease Status: Acute SCr worse today at 4.14, GFR 11 fater last HD 11/14 hence no signs of renal recovery and still HD dependent, will provide today UOP not documented in the past 24hrs, unclear why Continue to avoid nephrotxins if possible Awaiting permcath and HD placement for discharge to happen (2) Cirrhosis of liver with ascites Status: Acute Per primary team Qualifiers: Hepatic cirrhosis type: unspecified hepatic cirrhosis Qualified Code(s): K74.60 - Unspecified cirrhosis of liver (3) Pancytopenia Status: Acute per primary team Subjective Principal diagnosis: howie on ckd Interval history: Interim events noted, pt seen and examined now receiving HD. No UOP documented in the past 24hrs. Objective - Vital Signs Vital signs: Vital Signs Temp Pulse Resp BP Pulse Ox 11/16/17 11:03 98.2 F 59 18 147/75 96 11/16/17 09:28 98 F 60 18 155/70 95 11/16/17 08:35 98.1 F 59 18 145/72 11/16/17 08:32 96 11/16/17 08:16 98.3 F 66 18 150/79 11/16/17 07:25 97.4 F L 56 18 128/74 95 11/16/17 05:43 98.1 F 15 131/77 11/16/17 05:26 97.7 F 16 134/79 94 11/16/17 05:05 97.8 F 57 16 125/44 11/16/17 04:51 98.1 F 55 18 102/59 97 11/16/17 04:36 98 F 55 15 100/50 97 11/16/17 04:20 98.2 F 58 16 118/64 95 11/16/17 00:30 97.8 F 61 18 109/65 95 11/15/17 22:00 16 92 11/15/17 20:53 94 11/15/17 19:59 98.2 F 62 16 117/73 94 11/15/17 15:31 98.5 F 60 19 108/62 92 Intake and Output 11/15/17 11/16/17 11/16/17 23:59 07:59 15:59 Intake Total 1150 / 1150 300 / 300 Balance 1150 / 1150 300 / 300 Intake: Oral 0 / 0 Blood Product 1150 / 1150 300 / 300 Platelet Pheresis Lp Irr 1st 300 / 300 Unit [id number] Platelet Pheresis Lp Irr 2nd 450 / 450 Unit [id number] Platelet Pheresis Lp Irr 2nd 250 / 250 Unit [id number] Platelet Pheresis Lp Irr 3rd 450 / 450 Unit [id number] Other: Meal NPO Percent of Meal Consumed 0% # Voids 0 0 # Bowel Movements 0 0 Weight 87.7 kg Blood Glucose* 239 127 130 Patient Weight 11/16/17 23:59 Weight 87.7 kg - General Appearance General appearance: Present: chronically ill EENT: Present: ATNC, mucous membranes moist Neck: Present: no JVD, supple Respiratory: Present: clear Cardiology: Present: edema (improved), normal S1, normal S2 Dialysis Vascular Access: Venous Catheter (temp IJ) Gastrointestinal: Present: no tenderness, no guarding Integumentary: Present: warm and dry Neurologic: Present: no focal deficit Musculoskeletal: Present: no deformities Psychiatric: Present: mood/affect appropriate - Lab 11/26/17 04:00 11/26/17 04:00 Most recent lab results Calcium 8.9 mg/dL (8.6-10.3) 11/16/17 04:00 Phosphorus 4.7 mg/dL (2.7-4.5) H 11/01/17 04:47 Magnesium 2.1 mg/dL (1.6-2.6) 11/01/17 04:47 Urine Creatinine 98 mg/dL 10/31/17 05:45 Urine Sodium 26.3 mEq/L 11/03/17 16:08 Urine Total Protein 76 mg/dL (1-14) H 10/31/17 05:45 - VTE Documentation of Mechanical Device: Intermittent pneumatic compression device Consult Discharge Plan - Plan Instructions: Cirrhosis (GEN), Ascites (GEN) Referrals: Rashawn Michaels MD [Non-Partnered Physician] - 12/05/17 3:00 pm (Please follow up a sschedule...) Ramon Valderrama DO [Partnered Physician] - Hero Ramirez MD [Partnered Physician] - Prescriptions: amLODIPine [Norvasc] 5 mg PO DAILY 5 Days #5 tablet Budesonide/Formoterol 160/4.5 [Symbicort 160/4.5] 2 puff IH BIDR #1 inhaler Propranolol [Inderal] 20 mg PO BID #10 tablet
[2017-11-16] MEDS: amLODIPine 5 MG TABLET PO SCH (18:29)
[2017-11-16] MEDS: Insulin DETEMIR 100 UNIT/ML X5UNITS SQ SCH (20:33)
[2017-11-17 04:45] LABS: Red Cell Distribution Width 15.9 % (11.5-14.5)
[2017-11-17 04:46] LABS: Hematocrit 22.8 % (35.3-44.9); Hemoglobin 7.5 g/dL (11.5-15.4); Mean Corpuscular HGB Conc 32.9 g/dL (31.6-35.5); Mean Corpuscular Hemoglobin 32.5 pg (28.0-33.3); Mean Corpuscular Volume 98.7 fL (83.0-100.0); Mean Platelet Volume 11.2 fL (9.4-12.4); Red Blood Count 2.31 M/mcL (3.82-4.97)
[2017-11-17 04:55] LABS: Platelet Count 27 K/mcL (140-400)
[2017-11-17 05:05] LABS: Calcium 8.5 mg/dL (8.6-10.3); Potassium 3.8 mEq/L (3.5-5.1)
[2017-11-17] MEDS: Budesonide/Formoterol 160/4.5 MDI IH SCH ×2 (07:28→21:24)
[2017-11-17] MEDS: Pantoprazole 40 MG VIAL IVP SCH (07:31)
[2017-11-17] MEDS: Insulin LISPRO 300 UNITS/3 ML VIAL SQ SCH ×7 (07:31→20:51)
[2017-11-17] MEDS: amLODIPine 5 MG TABLET PO SCH (07:31)
--- NOTE | 2017-11-17 14:19 | Nephrology Progress Note ---
Date of Encounter: 11/17/17 Time of Encounter: 12:00 - Assessment and Plan (1) Acute kidney injury superimposed on chronic kidney disease Status: Acute SCr improved after another HD session yesterday at 2.8, GFR 17. Discussed at greath length the possible prolonged HD need at this point if no signs of renal recovery UOP noted at 200cc in the past 24hrs Continue to avoid nephrotxins if possible Awaiting permcath hopefully on sunday with FFP and HD placement for discharge to happen (2) Cirrhosis of liver with ascites Status: Acute Per primary team Qualifiers: Hepatic cirrhosis type: unspecified hepatic cirrhosis Qualified Code(s): K74.60 - Unspecified cirrhosis of liver (3) Pancytopenia Status: Acute per primary team Subjective Principal diagnosis: howie on ckd Interval history: Pt seen and examine sitting up in chair and feels much better with daughter at bedside. Objective - Vital Signs Vital signs: Vital Signs Temp Pulse Resp BP Pulse Ox 11/17/17 11:18 98.2 F 57 17 134/72 93 11/17/17 07:43 92 11/17/17 07:30 16 92 11/17/17 06:59 97.8 F 54 17 121/55 94 11/17/17 05:04 97.8 F 52 18 115/64 94 11/17/17 00:34 97.6 F 56 18 103/50 93 11/16/17 20:36 93 11/16/17 19:56 16 94 11/16/17 19:19 97.8 F 61 18 123/53 94 11/16/17 18:25 98.0 F 20 145/58 11/16/17 18:10 135/67 11/16/17 17:55 130/56 11/16/17 17:40 137/61 11/16/17 17:25 133/62 11/16/17 17:10 139/67 11/16/17 16:55 125/54 11/16/17 16:40 126/58 11/16/17 16:25 132/51 11/16/17 16:10 123/63 11/16/17 15:55 128/59 11/16/17 15:40 129/54 11/16/17 15:25 131/69 11/16/17 15:10 138/62 11/16/17 14:55 138/63 11/16/17 14:40 97.9 F 18 139/69 Intake and Output 11/16/17 11/17/17 11/17/17 23:59 07:59 15:59 Intake Total 60 / 60 100 / 100 120 / 120 Output Total 3800 / 3800 0 / 0 0 / 0 Balance -3740 / -3740 100 / 100 120 / 120 Intake: Oral 60 / 60 100 / 100 120 / 120 Output: Urine 200 / 200 0 / 0 0 / 0 Total Dialysis (HD) Output 3600 / 3600 Other: Meal Dinner Breakfast Percent of Meal Consumed 50% 100% # Voids 1 0 0 # Bowel Movements 0 Weight 86.7 kg Blood Glucose* 187 323 178 Hemodialysis Net Fluid Removed 3000 (mL) Patient Weight 11/17/17 23:59 Weight 86.7 kg - General Appearance General appearance: Present: chronically ill EENT: Present: ATNC, mucous membranes moist Neck: Present: no JVD Respiratory: Present: clear Cardiology: Present: edema (less LE bilat), normal S1, normal S2 Dialysis Vascular Access: Venous Catheter (temp IJ) Gastrointestinal: Present: no tenderness, no guarding Integumentary: Present: warm and dry Neurologic: Present: no focal deficit Musculoskeletal: Present: no deformities Psychiatric: Present: mood/affect appropriate, cooperative - Lab 11/26/17 04:00 11/26/17 04:00 Most recent lab results Calcium 8.5 mg/dL (8.6-10.3) L 11/17/17 04:00 Phosphorus 4.7 mg/dL (2.7-4.5) H 11/01/17 04:47 Magnesium 2.1 mg/dL (1.6-2.6) 11/01/17 04:47 Urine Creatinine 98 mg/dL 10/31/17 05:45 Urine Sodium 26.3 mEq/L 11/03/17 16:08 Urine Total Protein 76 mg/dL (1-14) H 10/31/17 05:45 - VTE Documentation of Mechanical Device: Intermittent pneumatic compression device Consult Discharge Plan - Plan Instructions: Cirrhosis (GEN), Ascites (GEN) Referrals: Rashawn Michaels MD [Non-Partnered Physician] - 12/05/17 3:00 pm (Please follow up a sschedule...) Ramon Valderrama DO [Partnered Physician] - Hero Ramirez MD [Partnered Physician] - Prescriptions: amLODIPine [Norvasc] 5 mg PO DAILY 5 Days #5 tablet Budesonide/Formoterol 160/4.5 [Symbicort 160/4.5] 2 puff IH BIDR #1 inhaler Propranolol [Inderal] 20 mg PO BID #10 tablet
[2017-11-17] MEDS ORDERED: *HR* Phytonadione 5 MG TABLET PO ONE (15:25)
--- NOTE | 2017-11-17 15:43 | Internal Med Progress Note ---
Date of Encounter: 11/17/17 Time of Encounter: 15:40 - Assessment and plan (1) Acute kidney injury superimposed on chronic kidney disease Current Visit: Yes Status: Acute Assessment and plan: In need of dialysis platelets are still low transfuse platelets and FFP tomorrow and on Sunday to schedule permanent catheter today by IR on Sunday (2) Acute respiratory failure with hypoxia Current Visit: Yes Status: Resolved Assessment and plan: Multifactorial, secondary to atypical pneumonia, pulmonary edema, left pleural effusion O2 requirement slowly improving, now on 2 L from 10L CXR 11/07 with pulmonary edema and possible pneumonia IR was unable to do thoracentesis -no effusion noted on CXR of 11/[address] done earlier. Continue supplemental O2 as needed - wean as tolerated Prednisone course completed Completed 7 days of Levaquin (3) Active asthma Current Visit: Yes Status: Chronic Assessment and plan: Stable (4) Thrombocytopenia Current Visit: Yes Status: Chronic Assessment and plan: s/p 7 units of pooled pLTS Carlos receive 3 more units tonight in order to have a permanent dialysis catheter placed PLT still low, no bleeding Heme/Onc noted-B12 folate TSH normal, Her hematological problems cannot be reversed given end-stage liver disease For transfusion if PLT <10K, or evidence of bleeding on current numbers, continue to monitor (5) DVT prophylaxis Current Visit: Yes Status: Acute Assessment and plan: SCDs due to thrombocytopenia. (6) Hypertension Current Visit: Yes Status: Chronic Assessment and plan: Continue Norvasc and Propanolol Qualifiers: Hypertension type: essential hypertension Qualified Code(s): I10 - Essential (primary) hypertension (7) Depression Current Visit: Yes Status: Chronic Assessment and plan: continue home meds Qualifiers: Depression Type: major depressive disorder Major depression recurrence: recurrent Active/Remission status: currently active Major depression episode severity: unspecified Qualified Code(s): F33.9 - Major depressive disorder, recurrent, unspecified (8) Cirrhosis of liver with ascites Current Visit: Yes Status: Acute Assessment and plan: 72-year-old female with diabetes, hypertension and liver cirrhosis 2/2 to HENRIQUEZ presenting with SOB and abdominal ascites. No fever, abdominal pain or tenderness or Altered mental status on exam. Child-Shaffer Classification Score: 9 (AO x 3, Ascites, Luis < 2 mg/dL, Albumin < 2.8, INR < 1.7). Dietary education, 2 g per day sodium restricted diet 4 L fluid removed on paracentesis on 11/01 Ascites recollected, s/p paracentensis 11/08 with 1.5 L removed No SBP GI consulted, recommendations appreciated : Noted that she may require TIPS procedure if this is recurrent issue. Continue propranolol AFP was 2, Hepatitis panel negative. No diuretics due to ANTONIO on CKD, Hepatorenal syndrome Qualifiers: Hepatic cirrhosis type: unspecified hepatic cirrhosis Qualified Code(s): K74.60 - Unspecified cirrhosis of liver (9) Hepatorenal syndrome Current Visit: Yes Status: Acute Assessment and plan: management per renal Not on any diuretics continue HD per renal schedule (10) Fall Current Visit: Yes Status: Acute Assessment and plan: PT.OT eval noted- for home health CT head negative Fall precautions Qualifiers: Encounter type: initial encounter Qualified Code(s): W19.XXXA - Unspecified fall, initial encounter (11) Hypersplenism Current Visit: Yes Status: Chronic Assessment and plan: as in liver disease (12) Pancytopenia Current Visit: Yes Status: Acute Assessment and plan: Possibly secondary to end-stage liver disease RBC transfusion for HB <7 (13) Gastric varices without bleeding Current Visit: Yes Status: Chronic Assessment and plan: secondary to liver disease/portal HTN Started patient on propranolol 11/07 Continue same (14) Pleural effusion, left Current Visit: Yes Status: Resolved Assessment and plan: Moderate size as seen on CT chest CXR 11/07 with no pleural effusion Continue O2 supplementation (15) Pneumonia Current Visit: Yes Status: Suspected Assessment and plan: Suspected chest x-ray. Patient has no cough, however she has been hypoxic and requiring higher doses of oxygen. Started Levaquin on 11/07, renally adjusted-day 7 out of 7 Continue oxygen supplementation by nasal cannula, now on 2L, continue to wean as tolerated. Chest x-ray from November 07 showed: Cardiomegaly and bilateral diffuse interstitial and alveolar opacities which may represent acute congestive heart failure versus possible atypical pneumonia. Qualifiers: Pneumonia type: due to unspecified organism Laterality: bilateral Lung location: unspecified part of lung Qualified Code(s): J18.9 - Pneumonia, unspecified organism (16) CHF (congestive heart failure) Current Visit: Yes Status: Acute Assessment and plan: Patient with peristent g hypoxia CXR 11/07 noted for suspected acute CHF/pulmonary edema ECHO on admission showed preserved EF with moderate LVDD Patient cannot tolerate diuretics due to worsening renal function Continue O2 supplementation Per renal , she was started on HD 11/09 Qualifiers: Heart failure type: diastolic Heart failure chronicity: acute on chronic Qualified Code(s): I50.33 - Acute on chronic diastolic (congestive) heart failure (17) Goals of care, counseling/discussion Current Visit: Yes Status: Acute Assessment and plan: Patient is full code discussed with patient about the prognosis of her diagnoses. She is wanting to see if hd will help her kidney function [employer], she wants to be referred for liver transplant at some point in the near future (18) Diabetes mellitus type 2 in obese Current Visit: Yes Status: Chronic Assessment and plan: FS ACCEPTABLE, CONTINUE TO MONITOR ACHS Patient not requiring any insulin r (19) COPD (chronic obstructive pulmonary disease) Current Visit: Yes Status: Acute Assessment and plan: no exacerbations. Qualified for Bipap Qualifiers: COPD type: unspecified COPD Qualified Code(s): J44.9 - Chronic obstructive pulmonary disease, unspecified - Time Spent With Patient Total time spent is greater than 50% in coordination of care (as documented) at patient's floor/unit and/or counseling patient: - Subjective Interval history: No complaints, no signs of bleeding. Feeling better, denies any pain, no SOB or CP , no fever, no abdominal pain or dysuria - Constitutional Vitals: Temp Pulse Resp BP Pulse Ox 98.2 F 57 17 134/72 93 11/17/17 11:18 11/17/17 11:18 11/17/17 11:18 11/17/17 11:18 11/17/17 11:18 General appearance: Present: cooperative, A&O X 3, morbidly obese, no acute distress, answers questions appropriately Exam: - Head Head exam: Present: atraumatic, normocephalic Additional comments: Right IJ dialysis catheter - Eye Eye exam: Present: PERRL, conjuntiva pink, sclera anicteric Pupils: Present: PERRL - Neck Neck exam general surgery: Present: supple, trachea midline. Absent: lymphadenopathy - Respiratory Respiratory exam: Present: CTAB. Absent: accessory muscle use, rales, rhonchi, wheezes - Cardiovascular Cardiovascular exam: Present: RRR, +S1, +S2. Absent: diastolic murmur, gallop, rubs, systolic murmur - GI/Abdominal GI/Abdominal exam: Present: distended (Ascites less prominent), normal bowel sounds, soft, no peritoneal signs. Absent: tenderness - Extremities Exam Extremities exam: Present: warm, radial pulses palpable and symmetrical. Absent : calf tenderness, cyanotic, pedal edema - Neurological Exam Neurological exam: Present: CN II-XII intact, oriented X3, no focal deficits. Absent: pronater drift, facial droop, speech deficit - Skin Skin exam: Present: dry, intact Internal Medicine: Result - Labs CBC & Chem 7: 11/17/17 04:00 11/17/17 04:00 Labs: Short CBC 11/17/17 Range/Units 04:00 WBC 1.6 L (4.3-11.1) K/mcL Hgb 7.5 L (11.5-15.4) g/dL Hct 22.8 L (35.3-44.9) % Plt Count 27 L* (140-400) K/mcL BMP 11/17/17 04:00 Sodium 137 Potassium 3.8 Chloride 101 Carbon Dioxide 29 BUN 26 H Creatinine 2.80 H Glucose 200 H Calcium 8.5 L - ABG Interpretation ABG results: PT/INR, D-dimer PT 18.5 Seconds (9.4-12.1) H 11/16/17 09:40 - VTE Documentation of Mechanical Device: Intermittent pneumatic compression device Consult Discharge Plan - Plan Referrals: Rashawn Michaels MD [Non-Partnered Physician] - 11/22/17 1:45 pm (Please follow up a sschedule...)
[2017-11-17] MEDS: Insulin DETEMIR 100 UNIT/ML X5UNITS SQ SCH (21:00)
[2017-11-18 04:10] LABS: Hematocrit 22.7 % (35.3-44.9); Hemoglobin 7.5 g/dL (11.5-15.4); Mean Corpuscular Hemoglobin 32.3 pg (28.0-33.3); Mean Corpuscular Volume 97.8 fL (83.0-100.0); Mean Platelet Volume 10.9 fL (9.4-12.4); Red Blood Count 2.32 M/mcL (3.82-4.97); Red Cell Distribution Width 16.1 % (11.5-14.5)
[2017-11-18 04:13] LABS: Platelet Count 25 K/mcL (140-400)
[2017-11-18 04:14] LABS: INR 1.7; Prothrombin Time 18.2 Seconds (9.4-12.1)
[2017-11-18 04:27] LABS: Calcium 8.5 mg/dL (8.6-10.3); Potassium 4.1 mEq/L (3.5-5.1)
[2017-11-18] MEDS: Insulin LISPRO 300 UNITS/3 ML VIAL SQ SCH ×7 (07:29→21:19)
[2017-11-18] MEDS: amLODIPine 5 MG TABLET PO SCH (07:31)
[2017-11-18] MEDS: Pantoprazole 40 MG VIAL IVP SCH (07:32)
[2017-11-18] MEDS: Budesonide/Formoterol 160/4.5 MDI IH SCH ×2 (07:54→20:00)
--- NOTE | 2017-11-18 10:40 | Internal Med Progress Note ---
Date of Encounter: 11/18/17 Time of Encounter: 10:36 - Assessment and plan (1) Acute kidney injury superimposed on chronic kidney disease Current Visit: Yes Status: Acute Assessment and plan: In need of dialysis platelets are still low transfuse platelets 3 units and 2 units of FFP tonight , schedule permanent catheter today by IR on Sunday (2) Acute respiratory failure with hypoxia Current Visit: Yes Status: Resolved Assessment and plan: Multifactorial, secondary to atypical pneumonia, pulmonary edema, left pleural effusion O2 requirements improved, now on 2 L from 10L CXR 11/07 with pulmonary edema and possible pneumonia IR was unable to do thoracentesis -no effusion noted on CXR of 11/[address] done earlier. Continue supplemental O2 as needed - wean as tolerated Prednisone course completed Completed 7 days of Levaquin (3) Active asthma Current Visit: Yes Status: Chronic Assessment and plan: Stable (4) Thrombocytopenia Current Visit: Yes Status: Chronic Assessment and plan: s/p 7 units of pooled pLTS Carlos receive 3 more units tonight in order to have a permanent dialysis catheter placed PLT still low, no bleeding Heme/Onc noted-B12 folate TSH normal, Her hematological problems cannot be reversed given end-stage liver disease For transfusion if PLT <10K, or evidence of bleeding on current numbers, continue to monitor (5) DVT prophylaxis Current Visit: Yes Status: Acute Assessment and plan: SCDs due to thrombocytopenia. (6) Hypertension Current Visit: Yes Status: Chronic Assessment and plan: Continue Norvasc and Propanolol Qualifiers: Hypertension type: essential hypertension Qualified Code(s): I10 - Essential (primary) hypertension (7) Depression Current Visit: Yes Status: Chronic Assessment and plan: continue home meds Qualifiers: Depression Type: major depressive disorder Major depression recurrence: recurrent Active/Remission status: currently active Major depression episode severity: unspecified Qualified Code(s): F33.9 - Major depressive disorder, recurrent, unspecified (8) Cirrhosis of liver with ascites Current Visit: Yes Status: Acute Assessment and plan: 72-year-old female with diabetes, hypertension and liver cirrhosis 2/2 to HENRIQUEZ presenting with SOB and abdominal ascites. No fever, abdominal pain or tenderness or Altered mental status on exam. Child-Shaffer Classification Score: 9 (AO x 3, Ascites, Luis < 2 mg/dL, Albumin < 2.8, INR < 1.7). Dietary education, 2 g per day sodium restricted diet 4 L fluid removed on paracentesis on 11/01 Ascites recollected, s/p paracentensis 11/08 with 1.5 L removed No SBP GI consulted, recommendations appreciated : Noted that she may require TIPS procedure if this is recurrent issue. Continue propranolol AFP was 2, Hepatitis panel negative. No diuretics due to ANTONIO on CKD, Hepatorenal syndrome Qualifiers: Hepatic cirrhosis type: unspecified hepatic cirrhosis Qualified Code(s): K74.60 - Unspecified cirrhosis of liver (9) Hepatorenal syndrome Current Visit: Yes Status: Acute Assessment and plan: management per renal Not on any diuretics continue HD per renal schedule (10) Fall Current Visit: Yes Status: Acute Assessment and plan: PT.OT eval noted- for home health CT head negative Fall precautions Qualifiers: Encounter type: initial encounter Qualified Code(s): W19.XXXA - Unspecified fall, initial encounter (11) Hypersplenism Current Visit: Yes Status: Chronic Assessment and plan: as in liver disease (12) Pancytopenia Current Visit: Yes Status: Acute Assessment and plan: Possibly secondary to end-stage liver disease RBC transfusion for HB <7 (13) Gastric varices without bleeding Current Visit: Yes Status: Chronic Assessment and plan: secondary to liver disease/portal HTN Started patient on propranolol 11/07 Continue same (14) Pleural effusion, left Current Visit: Yes Status: Resolved Assessment and plan: Moderate size as seen on CT chest CXR 11/07 with no pleural effusion Continue O2 supplementation (15) Pneumonia Current Visit: Yes Status: Suspected Assessment and plan: Suspected chest x-ray. Patient has no cough, however she has been hypoxic and requiring higher doses of oxygen. Started Levaquin on 11/07, renally adjusted-day 7 out of 7 Continue oxygen supplementation by nasal cannula, now on 2L, continue to wean as tolerated. Chest x-ray from November 07 showed: Cardiomegaly and bilateral diffuse interstitial and alveolar opacities which may represent acute congestive heart failure versus possible atypical pneumonia. Qualifiers: Pneumonia type: due to unspecified organism Laterality: bilateral Lung location: unspecified part of lung Qualified Code(s): J18.9 - Pneumonia, unspecified organism (16) CHF (congestive heart failure) Current Visit: Yes Status: Acute Assessment and plan: Patient with peristent g hypoxia CXR 11/07 noted for suspected acute CHF/pulmonary edema ECHO on admission showed preserved EF with moderate LVDD Patient cannot tolerate diuretics due to worsening renal function Continue O2 supplementation Per renal , she was started on HD 11/09 Qualifiers: Heart failure type: diastolic Heart failure chronicity: acute on chronic Qualified Code(s): I50.33 - Acute on chronic diastolic (congestive) heart failure (17) Goals of care, counseling/discussion Current Visit: Yes Status: Acute Assessment and plan: Patient is full code discussed with patient about the prognosis of her diagnoses. She is wanting to see if hd will help her kidney function [facility], she wants to be referred for liver transplant at some point in the near future (18) Diabetes mellitus type 2 in obese Current Visit: Yes Status: Chronic Assessment and plan: FS ACCEPTABLE, CONTINUE TO MONITOR ACHS Patient not requiring any insulin r (19) COPD (chronic obstructive pulmonary disease) Current Visit: Yes Status: Acute Assessment and plan: no exacerbations. Qualified for Bipap Qualifiers: COPD type: unspecified COPD Qualified Code(s): J44.9 - Chronic obstructive pulmonary disease, unspecified - Time Spent With Patient Total time spent is greater than 50% in coordination of care (as documented) at patient's floor/unit and/or counseling patient: - Subjective Interval history: No new complaints, no signs of bleeding. Feeling better, denies any pain, no SOB or CP , no fever, no abdominal pain or dysuria - Constitutional Vitals: Temp Pulse Resp BP Pulse Ox 97.9 F 67 18 153/73 93 11/18/17 06:51 11/18/17 06:51 11/18/17 07:54 11/18/17 06:51 11/18/17 07:54 General appearance: Present: cooperative, A&O X 3, morbidly obese, no acute distress, answers questions appropriately Exam: Head Head exam: Present: atraumatic, normocephalic Additional comments: Right IJ dialysis catheter - Eye Eye exam: Present: PERRL, conjuntiva pink, sclera anicteric Pupils: Present: PERRL - Neck Neck exam general surgery: Present: supple, trachea midline. Absent: lymphadenopathy - Respiratory Respiratory exam: Present: CTAB. Absent: accessory muscle use, rales, rhonchi, wheezes - Cardiovascular Cardiovascular exam: Present: RRR, +S1, +S2. Absent: diastolic murmur, gallop, rubs, systolic murmur - GI/Abdominal GI/Abdominal exam: Present: distended (Ascites less prominent), normal bowel sounds, soft, no peritoneal signs. Absent: tenderness - Extremities Exam Extremities exam: Present: warm, radial pulses palpable and symmetrical. Absent : calf tenderness, cyanotic, pedal edema - Neurological Exam Neurological exam: Present: CN II-XII intact, oriented X3, no focal deficits. Absent: pronater drift, facial droop, speech deficit - Skin Skin exam: Present: dry, intact Internal Medicine: Result - Labs CBC & Chem 7: 11/18/17 03:54 11/18/17 03:54 Labs: Short CBC 11/18/17 Range/Units 03:54 WBC 1.7 L (4.3-11.1) K/mcL Hgb 7.5 L (11.5-15.4) g/dL Hct 22.7 L (35.3-44.9) % Plt Count 25 L* (140-400) K/mcL BMP 11/18/17 03:54 Sodium 137 Potassium 4.1 Chloride 100 Carbon Dioxide 28 BUN 43 H Creatinine 3.99 H Glucose 217 H Calcium 8.5 L - ABG Interpretation ABG results: PT/INR, D-dimer PT 18.2 Seconds (9.4-12.1) H 11/18/17 03:54 - VTE Documentation of Mechanical Device: Intermittent pneumatic compression device Consult Discharge Plan - Plan Referrals: Rashawn Michaels MD [Non-Partnered Physician] - 11/22/17 1:45 pm (Please follow up a sschedule...)
--- NOTE | 2017-11-18 15:09 | Nephrology Progress Note ---
Date of Encounter: 11/18/17 Time of Encounter: 12:00 - Assessment and Plan (1) Acute kidney injury superimposed on chronic kidney disease Status: Acute SCr worse at 3.99, GFR 11 hence no renal recovery. Discussed at great length the possible prolonged HD need at this point since no signs of renal recovery. Will need permcath tomorrow if able to get inr and plts up UOP not documented in the past 24hrs Continue to avoid nephrotoxins if possible HD placement outpatient pending (2) Cirrhosis of liver with ascites Status: Acute Per primary team Qualifiers: Hepatic cirrhosis type: unspecified hepatic cirrhosis Qualified Code(s): K74.60 - Unspecified cirrhosis of liver (3) Pancytopenia Status: Acute per primary team Subjective Principal diagnosis: howie on ckd Interval history: Pt seen and examined sitting up in chair with no new complaints Objective - Vital Signs Vital signs: Vital Signs Temp Pulse Resp BP Pulse Ox 11/18/17 10:37 97.8 F 55 18 135/66 95 11/18/17 07:54 18 93 11/18/17 07:52 96 11/18/17 06:51 97.9 F 67 19 153/73 96 11/18/17 04:23 98.4 F 64 18 131/66 96 11/17/17 23:16 97.8 F 64 20 104/43 95 11/17/17 21:25 16 94 11/17/17 18:44 98.0 F 61 18 144/76 96 11/17/17 16:19 97.9 F 59 16 137/63 92 Intake and Output 11/17/17 11/18/17 11/18/17 23:59 07:59 15:59 Intake Total 480 / 480 0 / 0 240 / 240 Output Total 250 / 250 50 / 50 Balance 230 / 230 -50 / -50 240 / 240 Intake: Oral 480 / 480 0 / 0 240 / 240 Output: Urine 250 / 250 0 / 0 Emesis 50 / 50 Other: Meal Breakfast Percent of Meal Consumed 45% # Voids 0 0 # Bowel Movements 0 0 Weight 87.9 kg Blood Glucose* 152 169 205 - General Appearance General appearance: Present: chronically ill EENT: Present: ATNC, mucous membranes moist Neck: Present: no JVD, supple Respiratory: Present: clear Cardiology: Present: edema (less), normal S1, normal S2 Dialysis Vascular Access: Venous Catheter (temp IJ) Gastrointestinal: Present: no tenderness, no guarding, obese Integumentary: Present: warm and dry Neurologic: Present: no focal deficit Musculoskeletal: Present: no deformities Psychiatric: Present: cooperative - Lab 11/26/17 04:00 11/26/17 04:00 Most recent lab results Calcium 8.5 mg/dL (8.6-10.3) L 11/18/17 03:54 Phosphorus 4.7 mg/dL (2.7-4.5) H 11/01/17 04:47 Magnesium 2.1 mg/dL (1.6-2.6) 11/01/17 04:47 Urine Creatinine 98 mg/dL 10/31/17 05:45 Urine Sodium 26.3 mEq/L 11/03/17 16:08 Urine Total Protein 76 mg/dL (1-14) H 10/31/17 05:45 - VTE Documentation of Mechanical Device: Intermittent pneumatic compression device Consult Discharge Plan - Plan Instructions: Cirrhosis (GEN), Ascites (GEN) Referrals: Rashawn Michaels MD [Non-Partnered Physician] - 12/05/17 3:00 pm (Please follow up a sschedule...) Ramon Valderrama DO [Partnered Physician] - Hero Ramirez MD [Partnered Physician] - Prescriptions: amLODIPine [Norvasc] 5 mg PO DAILY 5 Days #5 tablet Budesonide/Formoterol 160/4.5 [Symbicort 160/4.5] 2 puff IH BIDR #1 inhaler Propranolol [Inderal] 20 mg PO BID #10 tablet
[2017-11-18] MEDS: Insulin DETEMIR 100 UNIT/ML X5UNITS SQ SCH (22:01)
[2017-11-19 06:32] LABS: Hematocrit 21.5 % (35.3-44.9); Hemoglobin 7.1 g/dL (11.5-15.4); Mean Corpuscular Hemoglobin 32.3 pg (28.0-33.3); Mean Corpuscular Volume 97.7 fL (83.0-100.0); Mean Platelet Volume 10.4 fL (9.4-12.4); Red Cell Distribution Width 15.7 % (11.5-14.5)
[2017-11-19 06:36] LABS: INR 1.4; Prothrombin Time 15.7 Seconds (9.4-12.1)
[2017-11-19 06:39] LABS: Platelet Count 38 K/mcL (140-400)
[2017-11-19 06:52] LABS: Calcium 9.1 mg/dL (8.6-10.3); Potassium 4.2 mEq/L (3.5-5.1)
[2017-11-19] MEDS: Budesonide/Formoterol 160/4.5 MDI IH SCH ×2 (07:37→19:46)
[2017-11-19] MEDS ORDERED: 0.9 % Sodium Chloride 250 ML IVC PRN (07:44)
[2017-11-19] MEDS ORDERED: *HR* Heparin 10,000 UNIT/10 ML VIAL IV PRN (07:44)
[2017-11-19] MEDS: Insulin LISPRO 300 UNITS/3 ML VIAL SQ SCH ×7 (07:54→21:40)
[2017-11-19] MEDS ORDERED: 0.9 % Sodium Chloride 1,000 ML ONE ×2 (07:55→10:34)
[2017-11-19] MEDS ORDERED: 0.9 % Sodium Chloride 250 ML ONE ×2 (08:03→12:19)
--- NOTE | 2017-11-19 08:21 | Internal Med Progress Note ---
Date of Encounter: 11/19/17 Time of Encounter: 08:19 - Assessment and plan (1) Acute kidney injury superimposed on chronic kidney disease Current Visit: Yes Status: Acute Assessment and plan: In need of dialysis platelets are still low INR is 1.4 today transfused platelets 3 units last night, order 2 more, was also transfused 2 units of FFP last night, schedule permanent catheter today (2) Acute respiratory failure with hypoxia Current Visit: Yes Status: Resolved Assessment and plan: Multifactorial, secondary to atypical pneumonia, pulmonary edema, left pleural effusion O2 requirements improved, now on 2 L from 10L CXR 11/07 with pulmonary edema and possible pneumonia IR was unable to do thoracentesis -no effusion noted on CXR of 11/[address] done earlier. Continue supplemental O2 as needed - wean as tolerated Prednisone course completed Completed 7 days of Levaquin (3) Active asthma Current Visit: Yes Status: Chronic Assessment and plan: Stable (4) Thrombocytopenia Current Visit: Yes Status: Chronic Assessment and plan: s/p 7 units of pooled pLTS Carlos receive 3 more units tonight in order to have a permanent dialysis catheter placed PLT still low, no bleeding Heme/Onc noted-B12 folate TSH normal, Her hematological problems cannot be reversed given end-stage liver disease For transfusion if PLT <10K, or evidence of bleeding on current numbers, continue to monitor (5) DVT prophylaxis Current Visit: Yes Status: Acute Assessment and plan: SCDs due to thrombocytopenia. (6) Hypertension Current Visit: Yes Status: Chronic Assessment and plan: Continue Norvasc and Propanolol Qualifiers: Hypertension type: essential hypertension Qualified Code(s): I10 - Essential (primary) hypertension (7) Depression Current Visit: Yes Status: Chronic Assessment and plan: continue home meds Qualifiers: Depression Type: major depressive disorder Major depression recurrence: recurrent Active/Remission status: currently active Major depression episode severity: unspecified Qualified Code(s): F33.9 - Major depressive disorder, recurrent, unspecified (8) Cirrhosis of liver with ascites Current Visit: Yes Status: Acute Assessment and plan: 72-year-old female with diabetes, hypertension and liver cirrhosis 2/2 to HENRIQUEZ presenting with SOB and abdominal ascites. No fever, abdominal pain or tenderness or Altered mental status on exam. Child-Shaffer Classification Score: 9 (AO x 3, Ascites, Luis < 2 mg/dL, Albumin < 2.8, INR < 1.7). Dietary education, 2 g per day sodium restricted diet 4 L fluid removed on paracentesis on 11/01 Ascites recollected, s/p paracentensis 11/08 with 1.5 L removed No SBP GI consulted, recommendations appreciated : Noted that she may require TIPS procedure if this is recurrent issue. Continue propranolol AFP was 2, Hepatitis panel negative. No diuretics due to ANTONIO on CKD, Hepatorenal syndrome Qualifiers: Hepatic cirrhosis type: unspecified hepatic cirrhosis Qualified Code(s): K74.60 - Unspecified cirrhosis of liver (9) Hepatorenal syndrome Current Visit: Yes Status: Acute Assessment and plan: management per renal Not on any diuretics continue HD per renal schedule (10) Fall Current Visit: Yes Status: Acute Assessment and plan: PT.OT eliecer noted- for home health CT head negative Fall precautions Qualifiers: Encounter type: initial encounter Qualified Code(s): W19.XXXA - Unspecified fall, initial encounter (11) Hypersplenism Current Visit: Yes Status: Chronic Assessment and plan: as in liver disease (12) Pancytopenia Current Visit: Yes Status: Acute Assessment and plan: Possibly secondary to end-stage liver disease RBC transfusion for HB <7 (13) Gastric varices without bleeding Current Visit: Yes Status: Chronic Assessment and plan: secondary to liver disease/portal HTN Started patient on propranolol 11/07 Continue same (14) Pleural effusion, left Current Visit: Yes Status: Resolved Assessment and plan: Moderate size as seen on CT chest CXR 11/07 with no pleural effusion Continue O2 supplementation (15) Pneumonia Current Visit: Yes Status: Suspected Assessment and plan: Suspected chest x-ray. Patient has no cough, however she has been hypoxic and requiring higher doses of oxygen. Started Levaquin on 11/07, renally adjusted-day 7 out of 7 Continue oxygen supplementation by nasal cannula, now on 2L, continue to wean as tolerated. Chest x-ray from November 07 showed: Cardiomegaly and bilateral diffuse interstitial and alveolar opacities which may represent acute congestive heart failure versus possible atypical pneumonia. Qualifiers: Pneumonia type: due to unspecified organism Laterality: bilateral Lung location: unspecified part of lung Qualified Code(s): J18.9 - Pneumonia, unspecified organism (16) CHF (congestive heart failure) Current Visit: Yes Status: Acute Assessment and plan: Patient with peristent g hypoxia CXR 11/07 noted for suspected acute CHF/pulmonary edema ECHO on admission showed preserved EF with moderate LVDD Patient cannot tolerate diuretics due to worsening renal function Continue O2 supplementation Per renal , she was started on HD 11/09 Qualifiers: Heart failure type: diastolic Heart failure chronicity: acute on chronic Qualified Code(s): I50.33 - Acute on chronic diastolic (congestive) heart failure (17) Goals of care, counseling/discussion Current Visit: Yes Status: Acute Assessment and plan: Patient is full code discussed with patient about the prognosis of her diagnoses. She is wanting to see if hd will help her kidney function half-way, she wants to be referred for liver transplant at some point in the near future (18) Diabetes mellitus type 2 in obese Current Visit: Yes Status: Chronic Assessment and plan: FS ACCEPTABLE, CONTINUE TO MONITOR ACHS Patient not requiring any insulin r (19) COPD (chronic obstructive pulmonary disease) Current Visit: Yes Status: Acute Assessment and plan: no exacerbations. Qualified for Bipap Qualifiers: COPD type: unspecified COPD Qualified Code(s): J44.9 - Chronic obstructive pulmonary disease, unspecified - Time Spent With Patient Total time spent is greater than 50% in coordination of care (as documented) at patient's floor/unit and/or counseling patient: - Subjective Interval history: Stable. No new complaints, no signs of bleeding. Feeling better, denies any pain, no SOB or CP , no fever, no abdominal pain or dysuria - Constitutional Vitals: Temp Pulse Resp BP Pulse Ox 98.5 F 59 18 119/74 95 11/19/17 08:17 11/19/17 08:17 11/19/17 08:17 11/19/17 08:17 11/19/17 08:17 General appearance: Present: cooperative, A&O X 3, morbidly obese, no acute distress, answers questions appropriately Exam: Head Head exam: Present: atraumatic, normocephalic Additional comments: Right IJ dialysis catheter - Eye Eye exam: Present: PERRL, conjuntiva pink, sclera anicteric Pupils: Present: PERRL - Neck Neck exam general surgery: Present: supple, trachea midline. Absent: lymphadenopathy - Respiratory Respiratory exam: Present: CTAB. Absent: accessory muscle use, rales, rhonchi, wheezes - Cardiovascular Cardiovascular exam: Present: RRR, +S1, +S2. Absent: diastolic murmur, gallop, rubs, systolic murmur - GI/Abdominal GI/Abdominal exam: Present: distended (Ascites less prominent), normal bowel sounds, soft, no peritoneal signs. Absent: tenderness - Extremities Exam Extremities exam: Present: warm, radial pulses palpable and symmetrical. Absent : calf tenderness, cyanotic, pedal edema - Neurological Exam Neurological exam: Present: CN II-XII intact, oriented X3, no focal deficits. Absent: pronater drift, facial droop, speech deficit - Skin Skin exam: Present: dry, intact Internal Medicine: Result - Labs CBC & Chem 7: 11/19/17 04:00 11/19/17 04:00 Labs: Short CBC 11/19/17 Range/Units 04:00 WBC 1.8 L (4.3-11.1) K/mcL Hgb 7.1 L (11.5-15.4) g/dL Hct 21.5 L (35.3-44.9) % Plt Count 38 L D (140-400) K/mcL BMP 11/19/17 04:00 Sodium 138 Potassium 4.2 Chloride 101 Carbon Dioxide 27 BUN 59 H Creatinine 4.67 H Glucose 174 H Calcium 9.1 - ABG Interpretation ABG results: PT/INR, D-dimer PT 15.7 Seconds (9.4-12.1) H 11/19/17 04:00 - VTE Documentation of Mechanical Device: Intermittent pneumatic compression device Consult Discharge Plan - Plan Referrals: Rashawn Michaels MD [Non-Partnered Physician] - 11/22/17 1:45 pm (Please follow up a sschedule...)
[2017-11-19] MEDS: amLODIPine 5 MG TABLET PO SCH (15:04)
--- NOTE | 2017-11-19 17:49 | Nephrology Progress Note ---
Date of Encounter: 11/19/17 Time of Encounter: 12:00 - Assessment and Plan (1) Acute kidney injury superimposed on chronic kidney disease Current Visit: Yes Status: Acute SCr worse at 4.67, GFR 9 hence no renal recovery, will continue HD today with UF as tolerated. Will need permcath today if IR agrees with plts and inr levels UOP documented at 200cc in the past 24hrs Continue to avoid nephrotoxins if possible HD placement outpatient done and now waiting permcath placement (2) Cirrhosis of liver with ascites Current Visit: Yes Status: Acute Per primary team Qualifiers: Hepatic cirrhosis type: unspecified hepatic cirrhosis Qualified Code(s): K74.60 - Unspecified cirrhosis of liver (3) Pancytopenia Current Visit: Yes Status: Acute Low plts making permcath placement problematic despite numerous units of plt transfusions, will discuss with IR if an exception can be made to their guidelines. Will transfuse 2 units pRBCs during HD today Subjective Principal diagnosis: howie on ckd Interval history: Pt seen and examined on HD s/p transfusion of platelets and FFP this am with inr down to 1.4 and plts up to 38 but IR still demanding up to 50 before permcath can be done. Objective - Vital Signs Vital signs: Vital Signs Temp Pulse Resp BP Pulse Ox 11/19/17 16:54 98.4 F 61 20 153/68 93 11/19/17 16:41 95 11/19/17 14:36 97.8 F 70 18 125/70 95 11/19/17 13:37 97.1 F L 61 16 157/82 93 11/19/17 13:36 97.1 F L 61 16 157/82 93 11/19/17 13:22 97.7 F 61 16 170/74 88 11/19/17 13:00 97.4 F L 17 152/66 11/19/17 12:50 142/58 11/19/17 12:35 143/55 11/19/17 12:20 138/62 11/19/17 12:05 141/68 11/19/17 11:55 97.1 F L 61 16 146/65 11/19/17 11:50 133/61 11/19/17 11:40 97.1 F L 58 16 142/65 11/19/17 11:35 149/73 11/19/17 11:25 97.0 F L 59 16 144/65 1618 11:20 140/55 16/18 11:15 97.5 F L 60 17 144/64 1618 11:05 142/61 1618 11:00 97.5 F L 60 17 151/55 1618 10:50 172/75 18 10:45 8.4 F L 60 18 143/50 18 10:35 161/7 18 10:20 156/70 18 10:05 149/55 18 09:50 136/64 1618 09:35 135/53 1618 09:20 98.4 F 16 141/71 1618 09:05 98.4 F 60 18 125/71 93 16/18 08:20 95 1618 08:17 98.5 F 59 18 119/74 95 1618 07:37 18 94 1618 06:50 97.8 F 58 18 123/75 99 16/18 05:28 97.6 F 61 16 128/72 16/18 05:06 98.4 F 62 16 125/70 98 16/18 04:57 98 F 60 18 118/72 98 16/18 04:32 98 F 63 18 118/72 96 16/18 03:15 98.6 F 63 18 120/72 96 16/18 03:14 98.3 F 63 20 126/71 95 16/18 03:00 98.3 F 63 18 116/62 16/18 02:34 98.2 F 64 20 120/72 95 16/18 01:31 98 F 64 18 122/68 96 16/18 01:18 98.2 F 63 18 122/70 95 16/18 01:07 98 F 61 16 120/70 95 16/18 00:39 98.2 F 63 16 118/73 95 16/18 00:20 98 F 63 16 119/67 95 15/18 23:58 98 F 64 16 123/71 0415/18 23:37 98.6 F 63 16 123/69 04/15/18 23:22 98.4 F 61 18 121/60 97 11/18/17 20:01 18 89 11/18/17 18:41 98.0 F 64 18 139/66 98 Intake and Output 11/19/17 11/19/17 11/19/17 07:59 15:59 23:59 Intake Total 2150 / 2150 2600 / 2600 Output Total 25 / 25 4300 / 4300 Balance 2125 / 2125 -1700 / -1700 Intake: Oral 0 / 0 0 / 0 Blood Product 2150 / 2150 2000 / 1999 Plasma Unit [id number] 250 / 250 Plasma Unit [id number] 250 / 250 Platelet Ph Acd-A Pasc Lp Irr1 300 / 300 Unit [id number] Platelet Pheresis Lp Irr 1st 900 / 900 Unit [id number] Platelet Pheresis Lp Irr 2nd 450 / 450 Unit [id number] Platelet Pheresis Lp Irr 2nd 300 / 300 Unit [id number] Platelet Pheresis Lp Irr 3rd 300 / 300 Unit [id number] Rbcs Leuko Poor As-1 Unit 700 / 700 [id number] Rbcs Leuko Poor As-1 Unit 700 / 700 [id number] Intake, Rinseback and Flushes 600 / 600 Output: Urine 25 / 25 0 / 0 Total Dialysis (HD) Output 4300 / 4300 Other: Meal NPO Percent of Meal Consumed 0% # Voids 1 Blood Glucose* 169 114 113 Hemodialysis Net Fluid Removed 3000 (mL) - General Appearance General appearance: Present: chronically ill, frail EENT: Present: ATNC, mucous membranes moist Neck: Present: no JVD, supple Respiratory: Present: clear Cardiology: Present: no edema, normal S1, normal S2 Dialysis Vascular Access: Venous Catheter (temp IJ) Gastrointestinal: Present: no tenderness, no guarding, obese Integumentary: Present: warm and dry Neurologic: Present: no focal deficit Musculoskeletal: Present: no deformities Psychiatric: Present: mood/affect appropriate, cooperative - Lab 11/19/17 04:00 11/19/17 04:00 Most recent lab results Calcium 9.1 mg/dL (8.6-10.3) 11/19/17 04:00 Phosphorus 4.7 mg/dL (2.7-4.5) H 11/01/17 04:47 Magnesium 2.1 mg/dL (1.6-2.6) 11/01/17 04:47 Urine Creatinine 98 mg/dL 10/31/17 05:45 Urine Sodium 26.3 mEq/L 11/03/17 16:08 Urine Total Protein 76 mg/dL (1-14) H 10/31/17 05:45 - VTE Documentation of Mechanical Device: Intermittent pneumatic compression device Consult Discharge Plan - Plan Referrals: Rashawn Michaels MD [Non-Partnered Physician] - 11/22/17 1:45 pm (Please follow up a sschedule...)
[2017-11-19] MEDS: Insulin DETEMIR 100 UNIT/ML X5UNITS SQ SCH (21:41)
[2017-11-20 04:55] LABS: Calcium 7.3 mg/dL (8.6-10.3)
[2017-11-20 06:25] LABS: Eosinophils % 2.2 %; Hematocrit 25.8 % (35.3-44.9); Hemoglobin 8.4 g/dL (11.5-15.4); Lymphocytes # 0.2 K/mcL (0.6-4.6); Lymphocytes % 13.7 %; Mean Corpuscular HGB Conc 32.6 g/dL (31.6-35.5); Mean Corpuscular Hemoglobin 31.9 pg (28.0-33.3); Mean Corpuscular Volume 98.1 fL (83.0-100.0); Mean Platelet Volume 10.7 fL (9.4-12.4); Monocytes # 0.2 K/mcL (0.0-1.3); Monocytes % 15.1 %; Red Blood Count 2.63 M/mcL (3.82-4.97)
[2017-11-20 06:26] LABS: Platelet Count 66 K/mcL (140-400)
[2017-11-20 06:36] LABS: INR 1.5; Prothrombin Time 16.7 Seconds (9.4-12.1)
[2017-11-20] MEDS ORDERED: Heparin 1,000 UNITS/500 mL 500 ML ONE (07:57)
[2017-11-20] MEDS ORDERED: Clindamycin 600 MG/50 ML 600 MG/50 ML IV.SOLN IVPB ONE (08:34)
[2017-11-20] MEDS ORDERED: *HR* FentaNYL (PF) 100 MCG/2 ML VIAL IVP ONE (08:35)
[2017-11-20] MEDS ORDERED: *HR* Midazolam HCl 2 MG/2 ML VIAL IVP ONE (08:35)
[2017-11-20] MEDS ORDERED: 0.9 % Sodium Chloride 500 ML ONE (08:55)
[2017-11-20] MEDS: Insulin LISPRO 300 UNITS/3 ML VIAL SQ SCH ×7 (09:08→21:12)
[2017-11-20] MEDS ORDERED: *HR* Heparin 5,000 UNIT/ML VIAL ONE (09:11)
[2017-11-20] MEDS: amLODIPine 5 MG TABLET PO SCH (10:09)
[2017-11-20] MEDS: Budesonide/Formoterol 160/4.5 MDI IH SCH ×2 (10:56→21:46)
--- NOTE | 2017-11-20 12:32 | Nephrology Progress Note ---
<Rachel Miller - Last Filed: 11/20/17 17:31> Date of Encounter: 11/20/17 Time of Encounter: 12:30 - Assessment and Plan (1) Acute kidney injury Status: Acute Permacath placed today. Will continue current HD regimen and watch for signs of renal recovery. Ionized Ca, Phos, PTH ordered. Started on 2000 units of Vit D for low Vit D level. (2) Cirrhosis of liver with ascites Status: Acute per primary team. Qualifiers: Hepatic cirrhosis type: unspecified hepatic cirrhosis Qualified Code(s): K74.60 - Unspecified cirrhosis of liver (3) Pancytopenia Status: Acute 2 Units PRBCs given, Hgb is 8.4, up from 7.1. Plts have been transfused several times currently 66. (4) Hypocalcemia Status: Acute As noted above. Subjective Principal diagnosis: howie on ckd Interval history: Patient seen and examined. Pt feeling well and is ready to go home. Did have right permacath placed today without issues. Right temp. line removed. Objective - Vital Signs Vital signs: Vital Signs Temp Pulse Resp BP Pulse Ox 11/20/17 11:03 98.3 F 58 20 144/76 91 11/20/17 10:56 20 91 11/20/17 06:53 98.1 F 60 20 150/71 90 11/20/17 04:47 97.9 F 57 15 129/79 95 11/20/17 03:31 97.9 F 15 129/79 11/20/17 03:16 98.5 F 6 15 110/61 11/20/17 03:14 98.6 F 72 16 152/87 90 11/20/17 03:12 98.6 F 72 16 152/87 92 11/20/17 02:09 98.8 F 58 16 151/76 93 11/20/17 01:50 98.5 F 60 16 140/69 93 11/20/17 01:41 98.4 F 59 16 157/75 91 11/20/17 00:35 99.0 F 60 16 150/68 90 11/20/17 00:16 98.6 F 61 16 147/67 93 11/20/17 00:11 98.6 F 61 16 147/67 89 11/19/17 19:49 98.8 F 62 16 145/70 94 11/19/17 19:48 18 93 11/19/17 16:54 98.4 F 61 20 153/68 93 11/19/17 16:41 95 11/19/17 14:36 97.8 F 70 18 125/70 95 11/19/17 13:37 97.1 F L 61 16 157/82 93 11/19/17 13:36 97.1 F L 61 16 157/82 93 11/19/17 13:22 97.7 F 61 16 170/74 88 11/19/17 13:00 97.4 F L 17 152/66 11/19/17 12:50 142/58 11/19/17 12:35 143/55 Intake and Output 11/19/17 11/20/17 11/20/17 23:59 07:59 15:59 Intake Total 1350 / 1350 Output Total 0 / 0 Balance 0 / 0 1350 / 1350 Intake: Blood Product 1350 / 1350 Platelet Pheresis Lp Irr 1st 450 / 450 Unit [id number] Platelet Pheresis Lp Irr 2nd 450 / 450 Unit [id number] Platelet Pheresis Lp Irr 2nd 450 / 450 Unit [id number] Output: Urine 0 / 0 Other: Stool Size Small Weight 88 kg Blood Glucose* 188 120 134 Patient Weight 11/20/17 23:59 Weight 88 kg - General Appearance General appearance: Present: chronically ill, frail EENT: Present: ATNC Neck: Present: supple Cardiology: Present: no edema, normal S1, normal S2 Dialysis Vascular Access: Venous Catheter (permacath) Gastrointestinal: Present: normoactive bowel sounds Integumentary: Present: warm and dry Neurologic: Present: alert and oriented x3 Psychiatric: Present: mood/affect appropriate, cooperative - Lab 11/20/17 05:58 11/20/17 04:00 Most recent lab results Calcium 7.3 mg/dL (8.6-10.3) L 11/20/17 04:00 Phosphorus 4.7 mg/dL (2.7-4.5) H 11/01/17 04:47 Magnesium 2.1 mg/dL (1.6-2.6) 11/01/17 04:47 Urine Creatinine 98 mg/dL 10/31/17 05:45 Urine Sodium 26.3 mEq/L 11/03/17 16:08 Urine Total Protein 76 mg/dL (1-14) H 10/31/17 05:45 - VTE Documentation of Mechanical Device: Intermittent pneumatic compression device Consult Discharge Plan - Plan Instructions: Cirrhosis (GEN), Ascites (GEN) Referrals: Rashawn Michaels MD [Non-Partnered Physician] - 12/05/17 3:00 pm (Please follow up a sschedule...) Ramon Valderrama DO [Partnered Physician] - Hero Ramirez MD [Partnered Physician] - Prescriptions: RX: amLODIPine [Norvasc] 5 mg PO DAILY 5 Days #5 tablet RX: Budesonide/Formoterol 160/4.5 [Symbicort 160/4.5] 2 puff IH BIDR #1 inhaler RX: Propranolol [Inderal] 20 mg PO BID #10 tablet <Aniya Robb - Last Filed: 12/12/17 08:08> Date of Encounter: 11/20/17 - Assessment and Plan (1) Acute kidney injury superimposed on chronic kidney disease Status: Acute (2) Cirrhosis of liver with ascites Status: Acute Qualifiers: Hepatic cirrhosis type: unspecified hepatic cirrhosis Qualified Code(s): K74.60 - Unspecified cirrhosis of liver (3) Pancytopenia Status: Acute Objective - Vital Signs Vital signs: Vital Signs Temp Pulse Resp BP Pulse Ox 11/22/17 20:20 14 92 11/22/17 19:46 97.8 F 58 16 135/52 92 11/22/17 16:14 98.2 F 57 17 145/76 93 11/22/17 11:00 98.1 F 54 17 138/47 95 11/22/17 10:57 17 94 11/22/17 06:53 97.9 F 53 17 153/71 94 11/22/17 03:58 98 F 58 16 134/67 92 Intake and Output 11/22/17 11/22/17 11/23/17 15:59 23:59 07:59 Intake Total 360 / 360 Balance 360 / 360 Intake: Oral 360 / 360 Other: Meal Breakfast Percent of Meal Consumed 75% Blood Glucose* 160 184 - Lab 11/26/17 04:00 11/26/17 04:00 Most recent lab results Calcium 9.1 mg/dL (8.6-10.3) 11/21/17 06:36 Phosphorus 4.4 mg/dL (2.7-4.5) 11/20/17 12:44 Magnesium 2.1 mg/dL (1.6-2.6) 11/01/17 04:47 Urine Creatinine 98 mg/dL 10/31/17 05:45 Urine Sodium 26.3 mEq/L 11/03/17 16:08 Urine Total Protein 76 mg/dL (1-14) H 10/31/17 05:45 - Attending Attestation I examined this patient and my medical decision-making was reviewed with the Resident Physician/[employer]. I agree with the documented findings, disposition and treatment plan as described except to the extent set forth below. Pt seen and examined with permcath placed successfully. PE shows less LE edema overall. Hgb stable after transfusion pRBCs at 8.4, will monitor
[2017-11-20 12:57] LABS: VBG Ionized Calcium 1.03 mmol/L (1.15-1.35)
[2017-11-20] MEDS: Cholecalciferol (D-3) 1,000 UNIT TABLET PO SCH (13:45)
--- NOTE | 2017-11-20 16:14 | Internal Med Progress Note ---
<MarioanuelJoel Melgoza - Last Filed: 11/20/17 16:12> Date of Encounter: 11/20/17 Time of Encounter: 16:12 - Assessment and plan (1) Acute kidney injury superimposed on chronic kidney disease Current Visit: Yes Status: Acute Assessment and plan: Requiring Dialysis Management per Nephrology Permicath placed on 11/20/17 Likely due to Hepatorenal syndrome. Possible discharge tomorrow. (2) Hepatorenal syndrome Current Visit: Yes Status: Acute Assessment and plan: management per renal Not on any diuretics continue HD per renal schedule (3) Cirrhosis of liver with ascites Current Visit: Yes Status: Acute Assessment and plan: 72-year-old female with diabetes, hypertension and liver cirrhosis 2/2 to HENRIQUEZ presenting with SOB and abdominal ascites. - Child-Shaffer Classification Score: 9 (AO x 3, Ascites, Luis < 2 mg/dL, Albumin < 2.8, INR < 1.7). Dietary education, 2 g per day sodium restricted diet 4 L fluid removed on paracentesis on 11/01 Ascites recollected, s/p paracentensis 11/08 with 1.5 L removed No SBP GI consulted, recommendations appreciated : Noted that she may require TIPS procedure if this is recurrent issue. Continue propranolol AFP was 2, Hepatitis panel negative. No diuretics due to ANTONIO on CKD, Hepatorenal syndrome Qualifiers: Hepatic cirrhosis type: unspecified hepatic cirrhosis Qualified Code(s): K74.60 - Unspecified cirrhosis of liver (4) Thrombocytopenia Current Visit: Yes Status: Chronic Assessment and plan: Ms. Shaffer has received 19 units Platelets since admission. Attempt to increase platelet level enough to undergo Permacath placement for continued dialysis. Placed on 11/20/2017. Thrombocytopenia likely secondary to liver failure. Heme/Onc noted-B12 folate TSH normal, Her hematological problems cannot be reversed given end-stage liver disease For transfusion if PLT <10K, or evidence of bleeding on current numbers, continue to monitor (5) Acute respiratory failure with hypoxia Current Visit: Yes Status: Resolved Assessment and plan: Multifactorial, secondary to atypical pneumonia, pulmonary edema, left pleural effusion Improving clinically. Wean oxygen requirements as tolerated. (6) Active asthma Current Visit: Yes Status: Chronic Assessment and plan: Stable (7) Hypertension Current Visit: Yes Status: Chronic Assessment and plan: Continue Norvasc and Propanolol Qualifiers: Hypertension type: essential hypertension Qualified Code(s): I10 - Essential (primary) hypertension (8) Depression Current Visit: Yes Status: Chronic Assessment and plan: continue home meds Qualifiers: Depression Type: major depressive disorder Major depression recurrence: recurrent Active/Remission status: currently active Major depression episode severity: unspecified Qualified Code(s): F33.9 - Major depressive disorder, recurrent, unspecified (9) Fall Current Visit: Yes Status: Acute Assessment and plan: PT.OT miguelal noted- for home health CT head negative Fall precautions Qualifiers: Encounter type: initial encounter Qualified Code(s): W19.XXXA - Unspecified fall, initial encounter (10) Hypersplenism Current Visit: Yes Status: Chronic Assessment and plan: as in liver disease (11) Pancytopenia Current Visit: Yes Status: Acute Assessment and plan: Possibly secondary to end-stage liver disease Patient received PRBC transfusion X2 units on 11/19/17 RBC transfusion for HB <7 (12) Gastric varices without bleeding Current Visit: Yes Status: Chronic Assessment and plan: secondary to liver disease/portal HTN - Continue Propanolol 20mg PO BID - Continue management of Hepatorenal syndrome. (13) Pneumonia Current Visit: Yes Status: Suspected Assessment and plan: Completed antibiotic therapy with IV Levaquin renally dosed for a total of 7 days. - Continue oxygen supplementation by nasal cannula, now on 2L, continue to wean as tolerated. -Chest x-ray from 11/07/17 showed: Cardiomegaly and bilateral diffuse interstitial and alveolar opacities which may represent acute congestive heart failure versus possible atypical pneumonia. Qualifiers: Pneumonia type: due to unspecified organism Laterality: bilateral Lung location: unspecified part of lung Qualified Code(s): J18.9 - Pneumonia, unspecified organism (14) Pleural effusion, left Current Visit: Yes Status: Resolved Assessment and plan: Moderate size as seen on CT chest CXR 11/07 with no pleural effusion Continue O2 supplementation (15) CHF (congestive heart failure) Current Visit: Yes Status: Acute Assessment and plan: Patient with peristent g hypoxia Clinical evaluation + CXR correlated with acute CHF/pulmonary edema ECHO on admission showed preserved EF with moderate LVDD Continue O2 supplementation - Continue HD managed by nephrology. Qualifiers: Heart failure type: diastolic Heart failure chronicity: acute on chronic Qualified Code(s): I50.33 - Acute on chronic diastolic (congestive) heart failure (16) Goals of care, counseling/discussion Current Visit: Yes Status: Acute Assessment and plan: Patient is full code During hospital stay: There was a discussion regarding prognosis of her diagnoses. She is wanting to see if hd will help her kidney function [facility], she wants to be referred for liver transplant at some point in the near future (17) Diabetes mellitus type 2 in obese Current Visit: Yes Status: Chronic Assessment and plan: FS ACCEPTABLE, CONTINUE TO MONITOR ACHS Patient not requiring any insulin (18) DVT prophylaxis Current Visit: Yes Status: Acute Assessment and plan: SCDs due to thrombocytopenia. (19) COPD (chronic obstructive pulmonary disease) Current Visit: Yes Status: Acute Assessment and plan: no exacerbations. - Continue current inhalers - Qualified for Bipap Qualifiers: COPD type: unspecified COPD Qualified Code(s): J44.9 - Chronic obstructive pulmonary disease, unspecified - Time Spent With Patient Total time spent is greater than 50% in coordination of care (as documented) at patient's floor/unit and/or counseling patient: - Subjective Interval history: Ms. Shaffer has been seen and evaluated at patient bedside this afternoon. She is alert, awake and interactive. She tolerated HD catheter placement without complication and states she is feeling much better without complaints today. She is awaiting discharge tomorrow and has no further questions today. Denies Fever, chills, diaphoresis chest pain, cough, sputum production or SOB. - Constitutional Vitals: Temp Pulse Resp BP Pulse Ox 98.5 F 59 20 148/69 93 11/20/17 15:16 11/20/17 15:16 11/20/17 15:16 11/20/17 15:16 11/20/17 15:16 General appearance: Present: cooperative, A&O X 3, morbidly obese, no acute distress, answers questions appropriately Exam: Gen: Alert, awake interactive AOx3 HEENT: NC/AT,PERRLA no sclera icterus, neck supple trachea midlin, no lymphadenopathy Chest: symmetric correlating with respirations RESP: CABL, Cardiac: RRR, Grade 3/6 holosystolic murmur, radial pulses 2+ bilaterally Abdomen: obese, + fluid wave, nontender to palpation, + BS Extremities: pale skin, dry, symmetric and moving spontaneously. Internal Medicine: Result - Labs CBC & Chem 7: 11/20/17 05:58 11/20/17 04:00 Labs: Short CBC 11/20/17 11/20/17 Range/Units 04:00 05:58 WBC TNP 1.4 L Hgb TNP 8.4 L Hct TNP 25.8 L Plt Count TNP 66 L D Neutrophils # TNP 1.0 L BMP 11/20/17 04:00 Sodium 137 Potassium 4.0 Chloride 101 Carbon Dioxide 31 H BUN 22 Creatinine 4.51 H Glucose 119 H Calcium 7.3 L - ABG Interpretation ABG results: PT/INR, D-dimer PT 16.7 Seconds (9.4-12.1) H 11/20/17 05:56 - Impressions Impressions Guidance Needle Placement Ultrasound 11/20/17 00:00 IMPRESSION: Successful ultrasound and fluoroscopy guided tunneled catheter placement . D/ / Francois Villeda MD / Francois Villeda MD Interpreting Provider: Francois Villeda MD Insertion Tunneled Catheter 11/20/17 00:00 IMPRESSION: Successful ultrasound and fluoroscopy guided tunneled catheter placement . D/ / Francois Villeda MD / Francois Villeda MD Interpreting Provider: Francois Villeda MD - VTE Documentation of Mechanical Device: Intermittent pneumatic compression device Consult Discharge Plan - Plan Referrals: Rashawn Michaels MD [Non-Partnered Physician] - 11/22/17 1:45 pm (Please follow up a sschedule...) <Vishal Bryant - Last Filed: 11/20/17 16:48> Date of Encounter: 11/20/17 - Assessment and plan (1) Diabetes mellitus type 2 in obese Current Visit: Yes Status: Chronic (2) Acute respiratory failure with hypoxia Current Visit: Yes Status: Resolved (3) Active asthma Current Visit: Yes Status: Chronic (4) Thrombocytopenia Current Visit: Yes Status: Chronic (5) DVT prophylaxis Current Visit: Yes Status: Acute (6) Hypertension Current Visit: Yes Status: Chronic Qualifiers: Hypertension type: essential hypertension Qualified Code(s): I10 - Essential (primary) hypertension (7) Depression Current Visit: Yes Status: Chronic Qualifiers: Depression Type: major depressive disorder Major depression recurrence: recurrent Active/Remission status: currently active Major depression episode severity: unspecified Qualified Code(s): F33.9 - Major depressive disorder, recurrent, unspecified (8) Cirrhosis of liver with ascites Current Visit: Yes Status: Acute Qualifiers: Hepatic cirrhosis type: unspecified hepatic cirrhosis Qualified Code(s): K74.60 - Unspecified cirrhosis of liver (9) Hepatorenal syndrome Current Visit: Yes Status: Acute (10) Acute kidney injury superimposed on chronic kidney disease Current Visit: Yes Status: Acute (11) Fall Current Visit: Yes Status: Acute Qualifiers: Encounter type: initial encounter Qualified Code(s): W19.XXXA - Unspecified fall, initial encounter (12) Hypersplenism Current Visit: Yes Status: Chronic (13) Pancytopenia Current Visit: Yes Status: Acute (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 Current Visit: Yes Status: Chronic (15) Pleural effusion, left Current Visit: Yes Status: Resolved (16) Pneumonia Current Visit: Yes Status: Suspected Qualifiers: Pneumonia type: due to unspecified organism Laterality: bilateral Lung location: unspecified part of lung Qualified Code(s): J18.9 - Pneumonia, unspecified organism (17) CHF (congestive heart failure) Current Visit: Yes Status: Acute Qualifiers: Heart failure type: diastolic Heart failure chronicity: acute on chronic Qualified Code(s): I50.33 - Acute on chronic diastolic (congestive) heart failure (18) Goals of care, counseling/discussion Current Visit: Yes Status: Acute (19) COPD (chronic obstructive pulmonary disease) Current Visit: Yes Status: Acute Qualifiers: COPD type: unspecified COPD Qualified Code(s): J44.9 - Chronic obstructive pulmonary disease, unspecified - Time Spent With Patient Total time spent is greater than 50% in coordination of care (as documented) at patient's floor/unit and/or counseling patient: - Constitutional Vitals: Temp Pulse Resp BP Pulse Ox 98.5 F 59 20 148/69 93 11/20/17 15:16 11/20/17 15:16 11/20/17 15:16 11/20/17 15:16 11/20/17 15:16 Internal Medicine: Result - Labs CBC & Chem 7: 11/20/17 05:58 11/20/17 04:00 Labs: Short CBC 11/20/17 11/20/17 Range/Units 04:00 05:58 WBC TNP 1.4 L Hgb TNP 8.4 L Hct TNP 25.8 L Plt Count TNP 66 L D Neutrophils # TNP 1.0 L BMP 11/20/17 04:00 Sodium 137 Potassium 4.0 Chloride 101 Carbon Dioxide 31 H BUN 22 Creatinine 4.51 H Glucose 119 H Calcium 7.3 L - ABG Interpretation ABG results: PT/INR, D-dimer PT 16.7 Seconds (9.4-12.1) H 11/20/17 05:56 - Impressions Impressions Guidance Needle Placement Ultrasound 11/20/17 00:00 IMPRESSION: Successful ultrasound and fluoroscopy guided tunneled catheter placement . D/ / Francois Villeda MD / Francois Villeda MD Interpreting Provider: Francois Villeda MD Insertion Tunneled Catheter 11/20/17 00:00 IMPRESSION: Successful ultrasound and fluoroscopy guided tunneled catheter placement . D/ / Francois Villeda MD / Francois Villeda MD Interpreting Provider: Francois Villeda MD - Attending Attestation I examined this patient and my medical decision-making was reviewed with the Resident Physician Dr. Crowley. I agree with the documented findings, disposition and treatment plan as described except to the extent set forth below. Ms. Shaffer is 72 y/o F with known iatrogenic cirrhosis of liver, hepatorenal syndrome, severe scities, CKD-5 pt admitted here for volume overload. Pt had perm HD cath placed in and started on HD. She is alert, awake and O x3. She had paracnetesis done here. Gen: A, A, O x 3 Chest: Diminished BS bl Heart: S1S2+ RRR a/p 1. Acute on CKD-5, need HD 2. hepato renal syndrome 3. Non alcoholic cirrhosis of liver 4. Volume overload 5. Chronic thrombocytoepnia Cont HD as per nephro Perm HD cath palced in out pt f/u with Heme Onc Need AV fistula placed as out pt
[2017-11-20] MEDS: Insulin DETEMIR 100 UNIT/ML X5UNITS SQ SCH (22:08)
[2017-11-21 06:56] LABS: Eosinophils % 2.3 %; Hematocrit 27.1 % (35.3-44.9); Hemoglobin 8.8 g/dL (11.5-15.4); Lymphocytes # 0.3 K/mcL (0.6-4.6); Lymphocytes % 25.8 %; Mean Corpuscular HGB Conc 32.5 g/dL (31.6-35.5); Mean Corpuscular Hemoglobin 32.1 pg (28.0-33.3); Mean Corpuscular Volume 98.9 fL (83.0-100.0); Mean Platelet Volume 9.9 fL (9.4-12.4); Monocytes # 0.2 K/mcL (0.0-1.3); Monocytes % 15.9 %; Neutrophils # 0.7 K/mcL (1.6-8.9); Platelet Count 48 K/mcL (140-400); Red Blood Count 2.74 M/mcL (3.82-4.97); Red Cell Distribution Width 15.7 % (11.5-14.5)
[2017-11-21 07:33] LABS: Calcium 9.1 mg/dL (8.6-10.3)
[2017-11-21] MEDS: amLODIPine 5 MG TABLET PO SCH (07:56)
[2017-11-21] MEDS: Cholecalciferol (D-3) 1,000 UNIT TABLET PO SCH (07:57)
[2017-11-21] MEDS: Insulin LISPRO 300 UNITS/3 ML VIAL SQ SCH ×7 (07:58→20:44)
[2017-11-21] MEDS ORDERED: 0.9 % Sodium Chloride 1,000 ML ONE ×2 (08:23→11:21)
[2017-11-21] MEDS ORDERED: 0.9 % Sodium Chloride 250 ML IVC PRN (08:40)
[2017-11-21] MEDS ORDERED: *HR* Heparin 10,000 UNIT/10 ML VIAL IV PRN (08:40)
[2017-11-21] MEDS ORDERED: 0.9 % Sodium Chloride 1,000 ML PRIME SCH (08:45)
--- NOTE | 2017-11-21 09:16 | Discharge Summary ---
<Alma Delia Stephen - Last Filed: 11/21/17 22:03> Orders not resulted at time of discharge: Pending orders 11/18/17 11:56 PLASMA [BBK] Stat Platelets [BBK] Stat Type and Screen [BBK] Routine 11/19/17 07:44 Red Blood Cells [BBK] Stat Date of Encounter: 11/21/17 Time of Encounter: 09:11 - Discharge Diagnosis (1) Diabetes mellitus type 2 in obese Priority: Secondary Status: Chronic (2) Acute respiratory failure with hypoxia Priority: Primary Status: Resolved (3) Active asthma Priority: Secondary Status: Chronic (4) Thrombocytopenia Priority: Secondary Status: Chronic (5) DVT prophylaxis Priority: Secondary Status: Acute (6) Hypertension Priority: Secondary Status: Chronic Qualifiers: Hypertension type: essential hypertension Qualified Code(s): I10 - Essential (primary) hypertension (7) Depression Priority: Secondary Status: Chronic Qualifiers: Depression Type: major depressive disorder Major depression recurrence: recurrent Active/Remission status: currently active Major depression episode severity: unspecified Qualified Code(s): F33.9 - Major depressive disorder, recurrent, unspecified (8) Cirrhosis of liver with ascites Priority: Secondary Status: Acute Qualifiers: Hepatic cirrhosis type: unspecified hepatic cirrhosis Qualified Code(s): K74.60 - Unspecified cirrhosis of liver (9) Hepatorenal syndrome Priority: Secondary Status: Acute (10) Acute kidney injury superimposed on chronic kidney disease Priority: Secondary Status: Acute (11) Fall Priority: Secondary Status: Acute Qualifiers: Encounter type: initial encounter Qualified Code(s): W19.XXXA - Unspecified fall, initial encounter (12) Hypersplenism Priority: Secondary Status: Chronic (13) Pancytopenia Priority: Secondary Status: Acute (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 Priority: Secondary Status: Chronic (15) Pleural effusion, left Priority: Secondary Status: Resolved (16) Pneumonia Priority: Secondary Status: Suspected Qualifiers: Pneumonia type: due to unspecified organism Laterality: bilateral Lung location: unspecified part of lung Qualified Code(s): J18.9 - Pneumonia, unspecified organism (17) CHF (congestive heart failure) Priority: Secondary Status: Acute Qualifiers: Heart failure type: diastolic Heart failure chronicity: acute on chronic Qualified Code(s): I50.33 - Acute on chronic diastolic (congestive) heart failure (18) Goals of care, counseling/discussion Priority: Secondary Status: Acute (19) COPD (chronic obstructive pulmonary disease) Priority: Secondary Status: Acute Qualifiers: COPD type: unspecified COPD Qualified Code(s): J44.9 - Chronic obstructive pulmonary disease, unspecified Hospital course: Ms. Shaffer is a 72 year-old female with h/o cirrhosis, hepatorenal syndrome, and CKD who was transferred to [facility] for worsening shortness of breath and abdominal ascites. Workup from outside hospital included blood work that showed serum creatinine 2.[address] abdomen from outside hospital showed sequelae of portal HTN including splenomegaly and abdominal ascites, pleural effusion, and cholelithiasis without acute inflammation. Paracentesis was delayed secondary to thrombocytopenia and INR of 1.5. On arrival, Vital signs were significant for BP of 177/80. Labs significant for WBC of 1.9, H/H of 8.9/ 26.6 (near baseline), platelets 19. BUN/Cr of 61/2.03. She was admitted for further evaluation of suspected hepatorenal syndrome. During course of hospital stay, patient improved. She did undergo paracentesis with 4L of fluid removal. She was started on propranolol. He had a permacatheter placed while inpatient once her platelets had improved. She underwent dialysis with a nephrology consultation who assisted in her care. Gastroenterology was consulted for cirrhosis during this time. Imaging performed was consistent with cirrhosis, ascites, and moderate pleural effusion. Oncology was also following for her pancytopenia and recommended platelet transfusions for count <10K. Etiology was suspected of end stage liver disease. She was transfused with 3 units PRBCs, 19 units platelets, and 2 units plasma to improve her pancytopenia before dialysis catheter placed. Her shortness of breath was suspected secondary to atypical pneumonia vs pulmonary edema and was treated with Levaquin, prednisone, and dialysis. On day of discharge, patient was medically stable and returning to baseline. Her kidney function remains end stage and she will require outpatient dialysis which has been coordinated with nephrology. Her shortness of breath has resolved. Her labs results returned to baseline. She was instructed to follow up with her PCP and nephrology appointments. Discharge discussed with: patient - Time Spent with Patient Total time spent providing and/or coordinating discharge services: - Discharge Medications Prescriptions: amLODIPine [Norvasc] 5 mg PO DAILY 5 Days #5 tablet Budesonide/Formoterol 160/4.5 [Symbicort 160/4.5] 2 puff IH BIDR #1 inhaler Propranolol [Inderal] 20 mg PO BID #10 tablet Home Medications: Cholecalciferol (D-3) 5,000 unit PO BID 30 Days tablet 06/18/15 [Rx] Glimepiride [Amaryl] 4 mg PO DAILY tablet 06/18/15 [Rx] Allopurinol [Zyloprim 100 MG] 200 mg PO DAILY 08/06/17 [History] Atorvastatin [Lipitor] 10 mg PO HS 08/06/17 [History] Citalopram Hydrobromide [Citalopram HBr] 40 mg PO DAILY 08/06/17 [History] Cyanocobalamin (B-12) [Vitamin B12] 1,000 mcg IM QMONTH 08/06/17 [History] Folic Acid 1 mg PO DAILY 08/06/17 [History] Spironolactone [Aldactone] 100 mg PO DAILY 08/06/17 [History] Furosemide [Lasix] 20 mg PO QAM 10/31/17 [History] Insulin ASPART [Novolog] 12 unit SQ QPM 10/31/17 [History] Insulin ASPART [Novolog] 22 unit SQ QAM 10/31/17 [History] Budesonide/Formoterol 160/4.5 [Symbicort 160/4.5] 2 puff IH BIDR #1 inhaler [Rx] Propranolol [Inderal] 20 mg PO BID #10 tablet 11/21/17 [Rx] amLODIPine [Norvasc] 5 mg PO DAILY 5 Days #5 tablet 11/21/17 [Rx] Allergies/Adverse Reactions: 3 Allergy/AdvReac Type Severity Reaction Status Date / Time No Known Drug Allergies Allergy See Verified 10/31/17 08:46 Comments Date of admission: 11/02/17 08:47 Primary care physician: Juan Miguel Decker Consults: 10/31/17 03:14 Consult to Interventional Radiology [CONS] Stat Consulting Provider: Radiology Interventional Cols Reason for Consult: Abdominal Ascites, Child Shaffer Score: 9 eval for possible diagnostic and therapeutic paracentesis. Call Completed: No 10/31/17 07:15 Consult to Claims Representative [CONS] Routine Reason for SW Consult: eval 10/31/17 07:57 Consult to Nephrology [CONS] Routine Consulting Provider: Kidney Kiana/MARK/KERRI/EMERSON Reason for Consult: ANTONIO, hepatorenal syndrome Call Completed: Yes 10/31/17 10:10 Consult to Physical Therapy [CONS] Routine Comment: Evaluate, develop and implement POC Reason for Consult: increased weakness, safe d/c planning. HH vs ECF Does patient have active BEDREST order?: No Is patient medically & hemodynamically stable?: Yes Patient assessed for mobility or mobilized this visit?: No 10/31/17 13:13 Consult to Gastroenterology [CONS] Routine Consulting Provider: Gastroenterology Kiana Reason for Consult: Cirrhosis from [place] with ascites Call Completed: Yes 11/01/17 05:44 Consult to Oncology Hematology [CONS] Routine Consulting Provider: Aliza Benito Reason for Consult: Thrombocytopenia Call Completed: No 11/01/17 20:22 Consult to Urology [CONS] Routine Consulting Provider: Urology Kiana Reason for Consult: Patient has been having urinary retention and reduced urine output. Nephrology consulted and Dr. Carreno's recommendation was for Urology consult d/t urinary retention and reduced output. Indwelling Alatorre catheter in place. Call Completed: Yes 11/02/17 12:41 Consult to Interventional Radiology [CONS] Stat Consulting Provider: Radiology Interventional Cols Reason for Consult: left pleural effusion with hypoxia, thoracentesis Call Completed: Yes 11/08/17 11:50 Consult to Interventional Radiology [CONS] Routine Consulting Provider: Radiology Interventional Cols Reason for Consult: temp cath placement Call Completed: Yes 11/09/17 10:30 Consult to Dialysis [CONS] ONCE 11/10/17 10:00 Consult to Dialysis [CONS] ONCE 11/11/17 10:00 Consult to Dialysis [CONS] ONCE 11/12/17 08:30 Consult to Dialysis [CONS] ONCE 11/14/17 10:30 Consult to Dialysis [CONS] ONCE 11/14/17 12:35 Consult to Interventional Radiology [CONS] Routine Consulting Provider: Radiology Interventional Cols Reason for Consult: Patient will need tunneled dialysis catheter. Call Completed: No 11/14/17 12:36 Consult to Claims Representative [CONS] Routine Reason for SW Consult: for outpatient dialysis. 11/15/17 10:20 Consult to Interventional Radiology [CONS] Routine Consulting Provider: Radiology Interventional Cols Reason for Consult: Plts ordered for this afternoon 11/15/17. Please [address] HD permacath in the AM. Call Completed: No 11/16/17 08:15 Consult to Dialysis [CONS] ONCE 11/19/17 07:45 Consult to Dialysis [CONS] ONCE 11/19/17 08:00 Consult to Interventional Radiology [CONS] Routine Consulting Provider: Radiology Interventional Cols Reason for Consult: permanent dialysis catheter. Platelets will be given Call Completed: No 11/21/17 08:45 Consult to Dialysis [CONS] ONCE Discharging clinician: Alma Delia Stephen Anticipated date of discharge: 11/21/17 - Constitutional Vitals: Temp Pulse Resp BP Pulse Ox 98 F 65 16 134/80 96 11/21/17 06:45 11/21/17 06:45 11/21/17 06:45 11/21/17 06:45 11/21/17 06:45 General appearance: Present: cooperative, A&O X 3, morbidly obese, no acute distress, answers questions appropriately - Head Head exam: Present: atraumatic, normocephalic - Eye Eye exam: Present: EOMI, PERRL - ENT ENT exam: Present: mucous membranes moist - Neck Additional comments: Right-sided Permacath - Respiratory Respiratory exam: Present: CTAB. Absent: rales, rhonchi, wheezes - Cardiovascular Cardiovascular exam: Present: RRR, +S1, +S2 - GI/Abdominal GI/Abdominal exam: Present: normal bowel sounds, soft. Absent: distended, rebound, rigid, tenderness - Extremities Exam Extremities exam: Present: warm. Absent: calf tenderness, cyanotic, pedal edema , tenderness - Back Exam Back exam: Absent: tenderness - Neurological Exam Neurological exam: Present: alert, oriented X3. Absent: motor sensory deficit, no focal deficits - Psychiatric Psychiatric exam: Present: normal affect, normal mood - Skin Skin exam: Present: intact, warm. Absent: cyanosis, rash - Patient Status Disposition: Home Health Service Condition: Good Functional capacity at discharge: uses cane/walker Overall status at discharge: patient is progressing back to baseline - Discharge Instructions Follow Up With: Rsahawn Michaels MD [Non-Partnered Physician] - 12/05/17 3:00 pm (Please follow up a sschedule...) - Diet and Activity Activity: ambulate only with your walker, resume usual activities as tolerated Diet: diabetic diet - VTE Documentation of Mechanical Device: Intermittent pneumatic compression device <AnnetteVishal - Last Filed: 11/22/17 15:32> Orders not resulted at time of discharge: Pending orders 11/23/17 04:00 CMP [Comprehensive Metabolic Panel] AM 0400 Complete Blood Count [HEME] AM 0400 Date of Encounter: 11/21/17 - Discharge Diagnosis (1) Acute respiratory failure with hypoxia Status: Resolved (2) Physical deconditioning Status: Acute (3) Thrombocytopenia Status: Chronic (4) Hypertension Status: Chronic Qualifiers: Hypertension type: essential hypertension Qualified Code(s): I10 - Essential (primary) hypertension (5) Cirrhosis of liver with ascites Status: Acute Qualifiers: Hepatic cirrhosis type: unspecified hepatic cirrhosis Qualified Code(s): K74.60 - Unspecified cirrhosis of liver (6) Hepatorenal syndrome Status: Acute (7) Acute kidney injury superimposed on chronic kidney disease Status: Acute (8) Fall Status: Acute Qualifiers: Encounter type: initial encounter Qualified Code(s): W19.XXXA - Unspecified fall, initial encounter (9) Hypersplenism Status: Chronic (10) Pancytopenia Status: Acute (11) Gastric varices without bleeding Status: Chronic (12) Pleural effusion, left Status: Resolved (13) Pneumonia Status: Suspected Qualifiers: Pneumonia type: due to unspecified organism Laterality: bilateral Lung location: unspecified part of lung Qualified Code(s): J18.9 - Pneumonia, unspecified organism (14) CHF (congestive heart failure) Status: Acute Qualifiers: Heart failure type: diastolic Heart failure chronicity: acute on chronic Qualified Code(s): I50.33 - Acute on chronic diastolic (congestive) heart failure (15) Goals of care, counseling/discussion Status: Acute (16) COPD (chronic obstructive pulmonary disease) Status: Acute Qualifiers: COPD type: unspecified COPD Qualified Code(s): J44.9 - Chronic obstructive pulmonary disease, unspecified (17) Depression Status: Chronic Qualifiers: Depression Type: major depressive disorder Major depression recurrence: recurrent Active/Remission status: currently active Major depression episode severity: unspecified Qualified Code(s): F33.9 - Major depressive disorder, recurrent, unspecified (18) Diabetes mellitus type 2 in obese Status: Chronic (19) DVT prophylaxis Status: Acute Hospital course: Ms. Shaffer is a 72 year old female - Time Spent with Patient Total time spent providing and/or coordinating discharge services: Date of admission: 11/02/17 08:47 Primary care physician: Juan Miguel Decker Consults: 10/31/17 03:14 Consult to Interventional Radiology [CONS] Stat Consulting Provider: Radiology Interventional Cols Reason for Consult: Abdominal Ascites, Child Shaffer Score: 9 eval for possible diagnostic and therapeutic paracentesis. Call Completed: No 10/31/17 07:15 Consult to Claims Representative [CONS] Routine Reason for SW Consult: eval 10/31/17 07:57 Consult to Nephrology [CONS] Routine Consulting Provider: Kidney Kiana/MARK/KERRI/EMERSON Reason for Consult: ANTONIO, hepatorenal syndrome Call Completed: Yes 10/31/17 10:10 Consult to Physical Therapy [CONS] Routine Comment: Evaluate, develop and implement POC Reason for Consult: increased weakness, safe d/c planning. HH vs ECF Does patient have active BEDREST order?: No Is patient medically & hemodynamically stable?: Yes Patient assessed for mobility or mobilized this visit?: No 10/31/17 13:13 Consult to Gastroenterology [CONS] Routine Consulting Provider: Gastroenterology Kiana Reason for Consult: Cirrhosis from [place] with ascites Call Completed: Yes 11/01/17 05:44 Consult to Oncology Hematology [CONS] Routine Consulting Provider: Aliza Benito Reason for Consult: Thrombocytopenia Call Completed: No 11/01/17 20:22 Consult to Urology [CONS] Routine Consulting Provider: Urology Kiana Reason for Consult: Patient has been having urinary retention and reduced urine output. Nephrology consulted and Dr. Carreno's recommendation was for Urology consult d/t urinary retention and reduced output. Indwelling Alatorre catheter in place. Call Completed: Yes 11/02/17 12:41 Consult to Interventional Radiology [CONS] Stat Consulting Provider: Radiology Interventional Cols Reason for Consult: left pleural effusion with hypoxia, thoracentesis Call Completed: Yes 11/08/17 11:50 Consult to Interventional Radiology [CONS] Routine Consulting Provider: Radiology Interventional Cols Reason for Consult: temp cath placement Call Completed: Yes 11/09/17 10:30 Consult to Dialysis [CONS] ONCE 11/10/17 10:00 Consult to Dialysis [CONS] ONCE 11/11/17 10:00 Consult to Dialysis [CONS] ONCE 11/12/17 08:30 Consult to Dialysis [CONS] ONCE 11/14/17 10:30 Consult to Dialysis [CONS] ONCE 11/14/17 12:35 Consult to Interventional Radiology [CONS] Routine Consulting Provider: Radiology Interventional Cols Reason for Consult: Patient will need tunneled dialysis catheter. Call Completed: No 11/14/17 12:36 Consult to Claims Representative [CONS] Routine Reason for SW Consult: for outpatient dialysis. 11/15/17 10:20 Consult to Interventional Radiology [CONS] Routine Consulting Provider: Radiology Interventional Cols Reason for Consult: Plts ordered for this afternoon 11/15/17. Please place HD permacath in the AM. Call Completed: No 11/16/17 08:15 Consult to Dialysis [CONS] ONCE 11/19/17 07:45 Consult to Dialysis [CONS] ONCE 11/19/17 08:00 Consult to Interventional Radiology [CONS] Routine Consulting Provider: Radiology Interventional Cols Reason for Consult: permanent dialysis catheter. Platelets will be given Call Completed: No 11/21/17 08:45 Consult to Dialysis [CONS] ONCE 11/21/17 16:07 Consult to Physical Therapy [CONS] Stat Comment: Evaluate, develop and implement POC Reason for Consult: Please re-evaluate patient, per Dr Bryant Does patient have active BEDREST order?: No Is patient medically & hemodynamically stable?: Yes 11/21/17 16:08 Consult to Occupational Therapy [CONS] Stat Comment: Evaluate, develop and implement POC Reason for Consult: Eval patient per dr bryant Does patient have active BEDREST order?: No Is patient medically & hemodynamically stable?: Yes 11/22/17 13:10 Consult to Claims Representative [CONS] Stat Reason for SW Consult: Patient states she can not make 0600 chair time for HD. Her family works night assistant. - Constitutional Vitals: Temp Pulse Resp BP Pulse Ox 98.1 F 54 17 138/47 95 11/22/17 11:00 11/22/17 11:00 11/22/17 11:00 11/22/17 11:00 11/22/17 11:00 - Attending Attestation I examined this patient and my medical decision-making was reviewed with the Resident Physician Dr. Crowley. I agree with the documented findings, disposition and treatment plan as described except to the extent set forth below. Ms. Shaffer is 72 y/o F with known iatrogenic cirrhosis of liver, hepatorenal syndrome, severe scities, CKD-5 pt admitted here for volume overload. Pt had perm HD cath placed in and started on HD. She is alert, awake and O x3. She had paracnetesis done here. Gen: A, A, O x 3 Chest: Diminished BS bl Heart: S1S2+ RRR a/p 1. Acute on CKD-5, need HD 2. hepato renal syndrome 3. Non alcoholic cirrhosis of liver 4. Volume overload 5. Chronic thrombocytoepnia Cont HD as per nephro Perm HD cath palced in out pt f/u with Heme Onc Need AV fistula placed as out pt
--- NOTE | 2017-11-21 09:55 | Physician Discharge Referral ---
Home Health/Hosp Referral Info Transfer to: Home Health Provider in Charge Post Discharge: PCP - Diagnosis (1) Acute kidney injury superimposed on chronic kidney disease Priority: Primary Status: Acute (2) Hepatorenal syndrome Status: Acute (3) Cirrhosis of liver with ascites Status: Acute (4) Thrombocytopenia Status: Chronic (5) Acute respiratory failure with hypoxia Status: Resolved (6) Active asthma Status: Chronic (7) Diabetes mellitus type 2 in obese Status: Chronic (8) Hypertension Status: Chronic (9) Depression Status: Chronic (10) Fall Status: Acute (11) Hypersplenism Status: Chronic (12) Pancytopenia Status: Acute (13) Gastric varices without bleeding Status: Chronic (14) Pleural effusion, left Status: Resolved (15) Pneumonia Status: Suspected (16) CHF (congestive heart failure) Status: Acute (17) Goals of care, counseling/discussion Status: Acute (18) COPD (chronic obstructive pulmonary disease) Status: Acute (19) DVT prophylaxis Status: Acute - Respiratory Orders None Smoking Cessation: Smoking cessation has been advised. For more information, call the [place] Tobacco Quit Line at 7-178-KYNX-NOW. - Diet/Nutrition Diet/Nutrition Orders: Renal, Cardiac - Activity Activity Orders: Walker - Services Needed Following services are medically necessary services: Home Health Aide - Transfer Medications Prescriptions: amLODIPine [Norvasc] 5 mg PO DAILY 5 Days #5 tablet Budesonide/Formoterol 160/4.5 [Symbicort 160/4.5] 2 puff IH BIDR #1 inhaler Propranolol [Inderal] 20 mg PO BID #10 tablet Home Medications: Cholecalciferol (D-3) 5,000 unit PO BID 30 Days tablet 06/18/15 [Rx] Glimepiride [Amaryl] 4 mg PO DAILY tablet 06/18/15 [Rx] Allopurinol [Zyloprim 100 MG] 200 mg PO DAILY 08/06/17 [History] Atorvastatin [Lipitor] 10 mg PO HS 08/06/17 [History] Citalopram Hydrobromide [Citalopram HBr] 40 mg PO DAILY 08/06/17 [History] Cyanocobalamin (B-12) [Vitamin B12] 1,000 mcg IM QMONTH 08/06/17 [History] Folic Acid 1 mg PO DAILY 08/06/17 [History] Spironolactone [Aldactone] 100 mg PO DAILY 08/06/17 [History] Furosemide [Lasix] 20 mg PO QAM 10/31/17 [History] Insulin ASPART [Novolog] 12 unit SQ QPM 10/31/17 [History] Insulin ASPART [Novolog] 22 unit SQ QAM 10/31/17 [History] Budesonide/Formoterol 160/4.5 [Symbicort 160/4.5] 2 puff IH BIDR #1 inhaler [Rx] Propranolol [Inderal] 20 mg PO BID #10 tablet 11/21/17 [Rx] amLODIPine [Norvasc] 5 mg PO DAILY 5 Days #5 tablet 11/21/17 [Rx] Allergies/Adverse Reactions: 3 Allergy/AdvReac Type Severity Reaction Status Date / Time No Known Drug Allergies Allergy See Verified 10/31/17 08:46 Comments Certification: Further, I certify that my clinical findings support that this patient is homebound (i.e. absences from home require considerable and taxing effort and are for medical reasons or yarsanism services or infrequently or short duration when for other reasons) because: Homebound Reason: Patient requires assistance of a person or device to safely leave home, Leaving home requires considerable and taxing effort due to condition, Severity of cardiac or pulmonary status limits activity tolerance Attestation: My signature below is to certify that this patient is under my care and that I, or nurse practitioner, or a physician's apartment community assistant manager working with me, has a face-to -face encounter with this patient.
--- NOTE | 2017-11-21 10:11 | Nephrology Progress Note ---
<Rachel Miller - Last Filed: 11/22/17 13:11> Date of Encounter: 11/22/17 Time of Encounter: 10:08 - Assessment and Plan (1) Acute kidney injury Current Visit: Yes Status: Acute Will continue current HD regimen. Getting HD today. Per Hospitalist Note, D/C today. Social Work working on chair time in [place]. No urine output from yesterday or today. Will check with patient if indeed anuric. Continue to avoid Nephrotoxins. (2) Cirrhosis of liver with ascites Current Visit: Yes Status: Acute per primary team. Qualifiers: Hepatic cirrhosis type: unspecified hepatic cirrhosis Qualified Code(s): K74.60 - Unspecified cirrhosis of liver (3) Pancytopenia Current Visit: Yes Status: Acute 2 Units PRBCs given 11/20. Hgb is 8.8. Plts have been transfused several times currently 48. (4) Hypocalcemia Current Visit: Yes Status: Acute Ca+9.1 today. Subjective Principal diagnosis: howie on ckd Interval history: Patient seen and examined in dialysis. Right permacath placed yesterday, no issues. Objective - Vital Signs Vital signs: Vital Signs Temp Pulse Resp BP Pulse Ox 11/21/17 06:45 98 F 65 16 134/80 96 11/21/17 04:21 97.6 F 56 18 143/82 97 11/20/17 23:41 98.6 F 57 18 146/72 93 11/20/17 22:24 95 11/20/17 21:46 20 95 11/20/17 18:40 98.0 F 62 20 149/80 97 11/20/17 15:16 98.5 F 59 20 148/69 93 11/20/17 11:03 98.3 F 58 20 144/76 91 11/20/17 10:56 20 91 Intake and Output 11/20/17 11/21/17 11/21/17 23:59 07:59 15:59 Intake Total 400 / 400 0 / 0 120 / 120 Output Total 0 / 0 0 / 0 Balance 400 / 400 0 / 0 120 / 120 Intake: Oral 400 / 400 0 / 0 120 / 120 Output: Urine 0 / 0 0 / 0 Other: Meal Breakfast Percent of Meal Consumed 80% Weight 8.7 kg Blood Glucose* 175 296 Patient Weight 11/21/17 23:59 Weight 8.7 kg - General Appearance General appearance: Present: chronically ill, frail EENT: Present: ATNC Neck: Present: supple Cardiology: Present: no edema, normal S1, normal S2 Dialysis Vascular Access: Venous Catheter (right permacath) Gastrointestinal: Present: normoactive bowel sounds, obese Integumentary: Present: warm and dry, ecchymotic Neurologic: Present: alert and oriented x3 Psychiatric: Present: mood/affect appropriate, cooperative - Lab 11/21/17 06:36 11/21/17 06:36 Most recent lab results Calcium 9.1 mg/dL (8.6-10.3) 11/21/17 06:36 Phosphorus 4.4 mg/dL (2.7-4.5) 11/20/17 12:44 Magnesium 2.1 mg/dL (1.6-2.6) 11/01/17 04:47 Urine Creatinine 98 mg/dL 10/31/17 05:45 Urine Sodium 26.3 mEq/L 11/03/17 16:08 Urine Total Protein 76 mg/dL (1-14) H 10/31/17 05:45 - VTE Documentation of Mechanical Device: Intermittent pneumatic compression device Consult Discharge Plan - Plan Referrals: Rashawn Michaels MD [Non-Partnered Physician] - 12/05/17 3:00 pm (Please follow up a sschedule...) Prescriptions: amLODIPine [Norvasc] 5 mg PO DAILY 5 Days #5 tablet Budesonide/Formoterol 160/4.5 [Symbicort 160/4.5] 2 puff IH BIDR #1 inhaler Propranolol [Inderal] 20 mg PO BID #10 tablet <Aniya Robb - Last Filed: 11/23/17 00:13> Date of Encounter: 11/22/17 - Assessment and Plan (1) Acute kidney injury superimposed on chronic kidney disease Current Visit: Yes Status: Acute (2) Cirrhosis of liver with ascites Current Visit: Yes Status: Acute Qualifiers: Hepatic cirrhosis type: unspecified hepatic cirrhosis Qualified Code(s): K74.60 - Unspecified cirrhosis of liver (3) Pancytopenia Current Visit: Yes Status: Acute Objective - Vital Signs Vital signs: Vital Signs Temp Pulse Resp BP Pulse Ox 11/22/17 20:20 14 92 11/22/17 19:46 97.8 F 58 16 135/52 92 11/22/17 16:14 98.2 F 57 17 145/76 93 11/22/17 11:00 98.1 F 54 17 138/47 95 11/22/17 10:57 17 94 11/22/17 06:53 97.9 F 53 17 153/71 94 11/22/17 03:58 98 F 58 16 134/67 92 Intake and Output 11/22/17 11/22/17 11/23/17 15:59 23:59 07:59 Intake Total 360 / 360 Balance 360 / 360 Intake: Oral 360 / 360 Other: Meal Breakfast Percent of Meal Consumed 75% Blood Glucose* 160 184 - Lab 11/21/17 06:36 11/21/17 06:36 Most recent lab results Calcium 9.1 mg/dL (8.6-10.3) 11/21/17 06:36 Phosphorus 4.4 mg/dL (2.7-4.5) 11/20/17 12:44 Magnesium 2.1 mg/dL (1.6-2.6) 11/01/17 04:47 Urine Creatinine 98 mg/dL 10/31/17 05:45 Urine Sodium 26.3 mEq/L 11/03/17 16:08 Urine Total Protein 76 mg/dL (1-14) H 10/31/17 05:45
[2017-11-21] MEDS: Budesonide/Formoterol 160/4.5 MDI IH SCH ×2 (10:34→22:06)
[2017-11-21] MEDS: Insulin DETEMIR 100 UNIT/ML X5UNITS SQ SCH (20:44)
[2017-11-22] MEDS: Insulin LISPRO 300 UNITS/3 ML VIAL SQ SCH ×7 (07:23→20:14)
[2017-11-22] MEDS: amLODIPine 5 MG TABLET PO SCH (09:09)
[2017-11-22] MEDS: Cholecalciferol (D-3) 1,000 UNIT TABLET PO SCH (09:09)
[2017-11-22] MEDS: Budesonide/Formoterol 160/4.5 MDI IH SCH ×2 (10:56→20:19)
--- NOTE | 2017-11-22 12:50 | Nephrology Progress Note ---
<Rachel Miller - Last Filed: 11/22/17 13:08> Date of Encounter: 11/22/17 Time of Encounter: 12:47 - Assessment and Plan (1) Acute kidney injury Current Visit: Yes Status: Acute Will continue current HD regimen. Per Hospitalist Note, D/C today. Social Work working on chair time in [place]. Patient states she can not make 0600 chair time. 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 Will notify social work. Urine output 150ccs. Continue to avoid Nephrotoxins. (2) Cirrhosis of liver with ascites Current Visit: Yes Status: Acute per primary team. Qualifiers: Hepatic cirrhosis type: unspecified hepatic cirrhosis Qualified Code(s): K74.60 - Unspecified cirrhosis of liver (3) Pancytopenia Current Visit: Yes Status: Acute 2 Units PRBCs given 11/20. Hgb is 8.8. Plts have been transfused several times currently 48. (4) Hypocalcemia Current Visit: Yes Status: Acute Stable. Subjective Principal diagnosis: howie on ckd Interval history: Patient seen and examined, sitting up in chair doing well. Wants to go home. Objective - Vital Signs Vital signs: Vital Signs Temp Pulse Resp BP Pulse Ox 11/22/17 11:00 98.1 F 54 17 138/47 95 11/22/17 10:57 17 94 11/22/17 06:53 97.9 F 53 17 153/71 94 11/22/17 03:58 98 F 58 16 134/67 92 11/21/17 22:06 16 92 11/21/17 19:57 98.1 F 58 16 102/45 94 11/21/17 16:43 98.1 F 69 16 131/68 92 11/21/17 14:45 97.6 F 18 118/53 11/21/17 14:41 96 11/21/17 13:35 112/51 11/21/17 13:20 115/59 11/21/17 13:05 122/63 11/21/17 12:50 117/57 Intake and Output 11/21/17 11/22/17 11/22/17 23:59 07:59 15:59 Intake Total 800 / 800 360 / 360 Output Total 150 / 150 0 / 0 Balance 650 / 650 0 / 0 360 / 360 Intake: Oral 800 / 800 360 / 360 Output: Urine 150 / 150 0 / 0 Other: Meal Breakfast Percent of Meal Consumed 75% Weight 86 kg Blood Glucose* 168 127 168 Patient Weight 11/22/17 23:59 Weight 86 kg - General Appearance General appearance: Present: chronically ill, frail EENT: Present: ATNC Neck: Present: supple Respiratory: Present: clear Cardiology: Present: edema, normal S1, normal S2 Dialysis Vascular Access: Venous Catheter (permacath) Gastrointestinal: Present: normoactive bowel sounds Integumentary: Present: warm and dry, ecchymotic Neurologic: Present: alert and oriented x3 Psychiatric: Present: mood/affect appropriate, cooperative - Lab 11/21/17 06:36 11/21/17 06:36 Most recent lab results Calcium 9.1 mg/dL (8.6-10.3) 11/21/17 06:36 Phosphorus 4.4 mg/dL (2.7-4.5) 11/20/17 12:44 Magnesium 2.1 mg/dL (1.6-2.6) 11/01/17 04:47 Urine Creatinine 98 mg/dL 10/31/17 05:45 Urine Sodium 26.3 mEq/L 11/03/17 16:08 Urine Total Protein 76 mg/dL (1-14) H 10/31/17 05:45 - VTE Documentation of Mechanical Device: Intermittent pneumatic compression device Consult Discharge Plan - Plan Referrals: Rashawn Michaels MD [Non-Partnered Physician] - 12/05/17 3:00 pm (Please follow up a sschedule...) Prescriptions: amLODIPine [Norvasc] 5 mg PO DAILY 5 Days #5 tablet Budesonide/Formoterol 160/4.5 [Symbicort 160/4.5] 2 puff IH BIDR #1 inhaler Propranolol [Inderal] 20 mg PO BID #10 tablet <Aniya Robb - Last Filed: 11/23/17 00:11> Date of Encounter: 11/22/17 - Assessment and Plan (1) Acute kidney injury superimposed on chronic kidney disease Current Visit: Yes Status: Acute (2) Cirrhosis of liver with ascites Current Visit: Yes Status: Acute Qualifiers: Hepatic cirrhosis type: unspecified hepatic cirrhosis Qualified Code(s): K74.60 - Unspecified cirrhosis of liver (3) Pancytopenia Current Visit: Yes Status: Acute Objective - Vital Signs Vital signs: Vital Signs Temp Pulse Resp BP Pulse Ox 11/22/17 20:20 14 92 11/22/17 19:46 97.8 F 58 16 135/52 92 11/22/17 16:14 98.2 F 57 17 145/76 93 11/22/17 11:00 98.1 F 54 17 138/47 95 11/22/17 10:57 17 94 11/22/17 06:53 97.9 F 53 17 153/71 94 11/22/17 03:58 98 F 58 16 134/67 92 Intake and Output 11/22/17 11/22/17 11/23/17 15:59 23:59 07:59 Intake Total 360 / 360 Balance 360 / 360 Intake: Oral 360 / 360 Other: Meal Breakfast Percent of Meal Consumed 75% Blood Glucose* 160 184 - Lab 11/21/17 06:36 11/21/17 06:36 Most recent lab results Calcium 9.1 mg/dL (8.6-10.3) 11/21/17 06:36 Phosphorus 4.4 mg/dL (2.7-4.5) 11/20/17 12:44 Magnesium 2.1 mg/dL (1.6-2.6) 11/01/17 04:47 Urine Creatinine 98 mg/dL 10/31/17 05:45 Urine Sodium 26.3 mEq/L 11/03/17 16:08 Urine Total Protein 76 mg/dL (1-14) H 10/31/17 05:45 - Attending Attestation I examined this patient and my medical decision-making was reviewed with the Resident Physician/SEISMOGRAPH HELPER. I agree with the documented findings, disposition and treatment plan as described except to the extent set forth below. Pt seen and examined eager to go home s/p HD yesterday and permcath in place. Lytes stable. PE unchanged. Outpatient HD being arranged in [place]. Next HD tomorrow whether inpatient or outpatient
--- NOTE | 2017-11-22 13:34 | Internal Med Progress Note ---
Date of Encounter: 11/22/17 Time of Encounter: 08:00 - Assessment and plan (1) Acute respiratory failure with hypoxia Current Visit: Yes Status: Resolved Assessment and plan: Multifactorial, secondary to atypical pneumonia, pulmonary edema, left pleural effusion Improving clinically. Finished full course of abx cont Duoneb PRN (2) Physical deconditioning Current Visit: Yes Status: Acute Assessment and plan: Pt does look severely deconditioned Asked reeval by PT / OT who suggested ECF placement for short term rehab SW / CM working on ECF placement so held d/c home y/d (3) Thrombocytopenia Current Visit: Yes Status: Chronic Assessment and plan: Ms. Shaffer has received 19 units Platelets since admission. Thrombocytopenia likely secondary to liver failure. (4) Hypertension Current Visit: Yes Status: Chronic Assessment and plan: Continue Norvasc and Propranolol Qualifiers: Hypertension type: essential hypertension Qualified Code(s): I10 - Essential (primary) hypertension (5) Cirrhosis of liver with ascites Current Visit: Yes Status: Acute Assessment and plan: 4 L fluid removed on paracentesis on 11/01 Ascites recollected, s/p paracentensis 11/08 with 1.5 L removed No SBP Continue propranolol AFP was 2, Hepatitis panel negative. No diuretics due to ANTONIO on CKD, Hepatorenal syndrome Qualifiers: Hepatic cirrhosis type: unspecified hepatic cirrhosis Qualified Code(s): K74.60 - Unspecified cirrhosis of liver (6) Hepatorenal syndrome Current Visit: Yes Status: Acute Assessment and plan: management per renal Not on any diuretics continue HD per renal schedule (7) Acute kidney injury superimposed on chronic kidney disease Current Visit: Yes Status: Acute Assessment and plan: Develop CKD-5, ESRD need HD M/W/F (8) Fall Current Visit: Yes Status: Acute Assessment and plan: PT / OT eval Qualifiers: Encounter type: initial encounter Qualified Code(s): W19.XXXA - Unspecified fall, initial encounter (9) Hypersplenism Current Visit: Yes Status: Chronic Assessment and plan: as in liver disease (10) Pancytopenia Current Visit: Yes Status: Acute Assessment and plan: Possibly secondary to end-stage liver disease Patient received PRBC transfusion X2 units on 11/19/17 RBC transfusion for HB <7 (11) Gastric varices without bleeding Current Visit: Yes Status: Chronic Assessment and plan: secondary to liver disease/portal HTN - Continue Propanolol 20mg PO BID - Continue management of Hepatorenal syndrome. (12) Pleural effusion, left Current Visit: Yes Status: Resolved Assessment and plan: Moderate size as seen on CT chest CXR 11/07 with no pleural effusion Continue O2 supplementation (13) Pneumonia Current Visit: Yes Status: Suspected Assessment and plan: Bacterial Improved Completed antibiotic therapy with IV Levaquin Qualifiers: Pneumonia type: due to unspecified organism Laterality: bilateral Lung location: unspecified part of lung Qualified Code(s): J18.9 - Pneumonia, unspecified organism (14) CHF (congestive heart failure) Current Visit: Yes Status: Acute Assessment and plan: ECHO on admission showed preserved EF with moderate LVDD Continue O2 supplementation - Continue HD managed by nephrology. Qualifiers: Heart failure type: diastolic Heart failure chronicity: acute on chronic Qualified Code(s): I50.33 - Acute on chronic diastolic (congestive) heart failure (15) Goals of care, counseling/discussion Current Visit: Yes Status: Acute Assessment and plan: Patient is full code During hospital stay: There was a discussion regarding prognosis of her diagnoses. She is wanting to see if hd will help her kidney function retirement, she wants to be referred for liver transplant at some point in the near future (16) COPD (chronic obstructive pulmonary disease) Current Visit: Yes Status: Acute Assessment and plan: no exacerbations. - Continue current inhalers Qualifiers: COPD type: unspecified COPD Qualified Code(s): J44.9 - Chronic obstructive pulmonary disease, unspecified (17) Depression Current Visit: Yes Status: Chronic Assessment and plan: continue home meds Qualifiers: Depression Type: major depressive disorder Major depression recurrence: recurrent Active/Remission status: currently active Major depression episode severity: unspecified Qualified Code(s): F33.9 - Major depressive disorder, recurrent, unspecified (18) Diabetes mellitus type 2 in obese Current Visit: Yes Status: Chronic Assessment and plan: ISS (19) DVT prophylaxis Current Visit: Yes Status: Acute Assessment and plan: SCDs due to thrombocytopenia - Time Spent With Patient Total time spent is greater than 50% in coordination of care (as documented) at patient's floor/unit and/or counseling patient: - Subjective Interval history: Ms. Shaffer is 72 y/o F with known iatrogenic HENRIQUEZ nonalcoholic steato hepatitis, cirrhosis of liver, hepatorenal syndrome, severe scities, CKD-5 pt admitted here for volume overload. Pt had Pt had perm HD cath placed in and started on HD. She is alert, awake and O x3. She had paracnetesis x 2 done here on 11/01 and 11/20. Pt denied any new complaints. She does have generalized weakness and fatigue. - Constitutional Vitals: Temp Pulse Resp BP Pulse Ox 98.1 F 54 17 138/47 95 11/22/17 11:00 11/22/17 11:00 11/22/17 11:00 11/22/17 11:00 11/22/17 11:00 General appearance: Present: cooperative, A&O X 3, morbidly obese, no acute distress, answers questions appropriately - Head Head exam: Present: atraumatic, normal inspection - Neck Neck exam general surgery: Present: supple - Respiratory Respiratory exam: Present: decreased breath sounds. Absent: rales, respiratory distress, rhonchi, wheezes - Cardiovascular Cardiovascular exam: Present: RRR, +S1, +S2. Absent: tachycardia - GI/Abdominal GI/Abdominal exam: Present: distended, normal bowel sounds, soft. Absent: rebound, rigid, tenderness - Extremities Exam Extremities exam: Present: pedal edema (trace). Absent: calf tenderness, tenderness - Back Exam Back exam: Absent: CVA tenderness (L), CVA tenderness (R) - Neurological Exam Neurological exam: Present: alert, oriented X3 - Psychiatric Psychiatric exam: Present: normal affect, normal mood Internal Medicine: Result - Labs CBC & Chem 7: 11/21/17 06:36 11/21/17 06:36 - ABG Interpretation ABG results: PT/INR, D-dimer PT 16.7 Seconds (9.4-12.1) H 11/20/17 05:56 - VTE Documentation of Mechanical Device: Intermittent pneumatic compression device Consult Discharge Plan - Plan Referrals: Rashawn Michaels MD [Non-Partnered Physician] - 12/05/17 3:00 pm (Please follow up a sschedule...) Prescriptions: amLODIPine [Norvasc] 5 mg PO DAILY 5 Days #5 tablet Budesonide/Formoterol 160/4.5 [Symbicort 160/4.5] 2 puff IH BIDR #1 inhaler Propranolol [Inderal] 20 mg PO BID #10 tablet
[2017-11-22] MEDS: Insulin DETEMIR 100 UNIT/ML X5UNITS SQ SCH (20:47)
[2017-11-23 04:58] LABS: Eosinophils % 3.4 %; Hematocrit 26.8 % (35.3-44.9); Hemoglobin 8.9 g/dL (11.5-15.4); Lymphocytes # 0.4 K/mcL (0.6-4.6); Lymphocytes % 31.9 %; Mean Corpuscular HGB Conc 33.2 g/dL (31.6-35.5); Mean Corpuscular Volume 96.4 fL (83.0-100.0); Mean Platelet Volume 10.8 fL (9.4-12.4); Monocytes # 0.1 K/mcL (0.0-1.3); Monocytes % 11.8 %; Neutrophils # 0.6 K/mcL (1.6-8.9); Red Blood Count 2.78 M/mcL (3.82-4.97); Red Cell Distribution Width 15.1 % (11.5-14.5); Segmented Neutrophils % 52.9 %
[2017-11-23 05:12] LABS: Albumin 3.3 g/dL (3.5-5.7); Albumin/Globulin Ratio 1.2 (1.1-2.2); Bilirubin,Total 2.3 mg/dL (0.3-1.0); Calcium 8.9 mg/dL (8.6-10.3); Globulin 2.8 g/dL (2.4-3.5); Potassium 4.2 mEq/L (3.5-5.1); Total Protein 6.1 g/dL (6.4-8.9)
[2017-11-23 05:13] LABS: Platelet Count 17 K/mcL (140-400)
[2017-11-23 05:34] LABS: Platelet Estimate Marked Decrease (Normal)
[2017-11-23 05:35] LABS: Hypochromasia Present (Not Present)
[2017-11-23] MEDS ORDERED: 0.9 % Sodium Chloride 250 ML IVC PRN (07:21)
[2017-11-23] MEDS ORDERED: *HR* Heparin 10,000 UNIT/10 ML VIAL IV PRN (07:21)
[2017-11-23] MEDS ORDERED: 0.9 % Sodium Chloride 1,000 ML PRIME SCH (07:30)
[2017-11-23] MEDS ORDERED: 0.9 % Sodium Chloride 1,000 ML ONE ×2 (07:33→09:47)
[2017-11-23] MEDS: Budesonide/Formoterol 160/4.5 MDI IH SCH ×2 (07:41→22:15)
[2017-11-23] MEDS: Cholecalciferol (D-3) 1,000 UNIT TABLET PO SCH (08:28)
[2017-11-23] MEDS: Insulin LISPRO 300 UNITS/3 ML VIAL SQ SCH ×7 (08:28→21:17)
--- NOTE | 2017-11-23 10:59 | Nephrology Progress Note ---
Date of Encounter: 11/23/17 Time of Encounter: 10:00 - Assessment and Plan (1) Acute kidney injury superimposed on chronic kidney disease Current Visit: Yes Status: Acute Appears dialysis dependent and will arrange for HD today to continue a M/W/ schedule. Next HD tentatively planned for Sunday. I spoke with the SW who did help adjust the timing of her HD shift to 2:30pm in [place] Due the thrombocytopenia, I would recommend avoiding Heparin without outpt HD. (2) Cirrhosis of liver with ascites Current Visit: Yes Status: Acute As per primary Qualifiers: Hepatic cirrhosis type: unspecified hepatic cirrhosis Qualified Code(s): K74.60 - Unspecified cirrhosis of liver (3) Pancytopenia Current Visit: Yes Status: Acute See above. Will have to avoid Heparin with HD, but the primary etiology apears to to be liver disease with splenic sequestration. (4) Thrombocytopenia Current Visit: Yes Status: Acute See above Subjective Principal diagnosis: howie on ckd Interval history: Pt was s/e while on HD. She did not affirm N/V/D or cramping or dizziness. Objective - Vital Signs Vital signs: Vital Signs Temp Pulse Resp BP Pulse Ox 11/23/17 10:50 97.5 F L 62 18 123/57 11/23/17 10:35 97.4 F L 60 18 114/52 11/23/17 10:20 97.4 F L 58 18 110/54 11/23/17 07:41 16 93 11/23/17 06:59 97.3 F L 58 20 128/61 91 11/23/17 03:21 97.9 F 56 15 128/55 90 11/22/17 20:20 14 92 11/22/17 19:46 97.8 F 58 16 135/52 92 11/22/17 16:14 98.2 F 57 17 145/76 93 11/22/17 11:00 98.1 F 54 17 138/47 95 11/22/17 10:57 17 94 Intake and Output 11/22/17 11/23/17 11/23/17 23:59 07:59 15:59 Intake Total 1020 / 1020 Output Total 0 / 0 Balance 1020 / 1020 Intake: Oral 120 / 120 Blood Product 900 / 900 Platelet Pheresis Lp Irr 3rd 900 / 900 Unit [id number] Output: Urine 0 / 0 Other: Meal Breakfast Percent of Meal Consumed 100% # Voids 0 Weight 85.7 kg Blood Glucose* 184 111 Patient Weight 11/23/17 23:59 Weight 85.7 kg - General Appearance General appearance: Present: obese, fatigue, frail EENT: Present: ATNC, PERRL, mucous membranes moist Neck: Present: supple Respiratory: Present: clear Cardiology: Present: edema, regular rate, regular rhythm, normal S1, normal S2 Dialysis Vascular Access: Venous Catheter (with exit site C/D/I) Gastrointestinal: Present: normoactive bowel sounds, no tenderness, no guarding , obese Integumentary: Present: warm and dry, ecchymotic Neurologic: Present: no focal deficit, alert and oriented x3 Musculoskeletal: Present: no erythema, no clubbing Psychiatric: Present: mood/affect appropriate, cooperative - Lab 11/24/17 03:53 11/24/17 03:53 Most recent lab results Calcium 8.9 mg/dL (8.6-10.3) 11/23/17 04:27 Phosphorus 4.4 mg/dL (2.7-4.5) 11/20/17 12:44 Magnesium 2.1 mg/dL (1.6-2.6) 11/01/17 04:47 Urine Creatinine 98 mg/dL 10/31/17 05:45 Urine Sodium 26.3 mEq/L 11/03/17 16:08 Urine Total Protein 76 mg/dL (1-14) H 10/31/17 05:45 - Imaging Kidney/bladder ultrasound: image reviewed (No hydroneprhosis) - VTE Documentation of Mechanical Device: Intermittent pneumatic compression device Consult Discharge Plan - Plan Referrals: Rashawn Michaels MD [Non-Partnered Physician] - 12/05/17 3:00 pm (Please follow up a sschedule...) Prescriptions: amLODIPine [Norvasc] 5 mg PO DAILY 5 Days #5 tablet Budesonide/Formoterol 160/4.5 [Symbicort 160/4.5] 2 puff IH BIDR #1 inhaler Propranolol [Inderal] 20 mg PO BID #10 tablet
[2017-11-23] MEDS: amLODIPine 5 MG TABLET PO SCH (13:25)
--- NOTE | 2017-11-23 13:38 | Internal Med Progress Note ---
Date of Encounter: 11/23/17 Time of Encounter: 09:00 - Assessment and plan (1) Acute respiratory failure with hypoxia Current Visit: Yes Status: Resolved Assessment and plan: Multi factorial, secondary to atypical pneumonia, pulmonary edema, left pleural effusion Improved clinically Finished full course of abx cont Duoneb PRN (2) Physical deconditioning Current Visit: Yes Status: Acute Assessment and plan: Pt does look severely deconditioned PT/ OT reevaluated the pt who suggested ECF placement for short term rehab SW / CM working on ECF placement (3) Thrombocytopenia Current Visit: Yes Status: Chronic Assessment and plan: Thrombocytopenia likely secondary to liver failure Platelets dropped down 17 today, gave her another unit of platelets today so far she received 20 U Platelets avoid anti platelet meds (4) Hypertension Current Visit: Yes Status: Chronic Assessment and plan: Continue Norvasc and Propranolol Qualifiers: Hypertension type: essential hypertension Qualified Code(s): I10 - Essential (primary) hypertension (5) Cirrhosis of liver with ascites Current Visit: Yes Status: Acute Assessment and plan: 4 L fluid removed on paracentesis on 11/01 Ascites recollected, s/p paracentensis 11/08 with 1.5 L removed No SBP Continue propranolol AFP was 2, Hepatitis panel negative. No diuretics due to ANTONIO on CKD, Hepatorenal syndrome Qualifiers: Hepatic cirrhosis type: unspecified hepatic cirrhosis Qualified Code(s): K74.60 - Unspecified cirrhosis of liver (6) Hepatorenal syndrome Current Visit: Yes Status: Acute Assessment and plan: management per renal continue HD per renal schedule (7) Acute kidney injury superimposed on chronic kidney disease Current Visit: Yes Status: Acute Assessment and plan: Develop CKD-5, ESRD need HD M/W/F (8) Fall Current Visit: Yes Status: Acute Assessment and plan: PT / OT eval Qualifiers: Encounter type: initial encounter Qualified Code(s): W19.XXXA - Unspecified fall, initial encounter (9) Hypersplenism Current Visit: Yes Status: Chronic Assessment and plan: as in liver disease (10) Pancytopenia Current Visit: Yes Status: Acute Assessment and plan: Possibly secondary to end-stage liver disease Patient received PRBC transfusion X2 units on 11/19/17 RBC transfusion for HB <7 (11) Gastric varices without bleeding Current Visit: Yes Status: Chronic Assessment and plan: secondary to liver disease/portal HTN - Continue Propanolol 20mg PO BID - Continue management of Hepatorenal syndrome. (12) Pleural effusion, left Current Visit: Yes Status: Resolved Assessment and plan: Moderate size as seen on CT chest CXR 11/07 with no pleural effusion Continue O2 supplementation (13) Pneumonia Current Visit: Yes Status: Suspected Assessment and plan: Bacterial Improved Completed antibiotic therapy with IV Levaquin Qualifiers: Pneumonia type: due to unspecified organism Laterality: bilateral Lung location: unspecified part of lung Qualified Code(s): J18.9 - Pneumonia, unspecified organism (14) CHF (congestive heart failure) Current Visit: Yes Status: Acute Assessment and plan: ECHO on admission showed preserved EF with moderate LVDD Continue O2 supplementation - Continue HD managed by nephrology. Qualifiers: Heart failure type: diastolic Heart failure chronicity: acute on chronic Qualified Code(s): I50.33 - Acute on chronic diastolic (congestive) heart failure (15) Goals of care, counseling/discussion Current Visit: Yes Status: Acute Assessment and plan: Patient is full code During hospital stay: There was a discussion regarding prognosis of her diagnoses. She is wanting to see if hd will help her kidney function long-term, she wants to be referred for liver transplant at some point in the near future (16) COPD (chronic obstructive pulmonary disease) Current Visit: Yes Status: Acute Assessment and plan: no exacerbations. - Continue current inhalers Qualifiers: COPD type: unspecified COPD Qualified Code(s): J44.9 - Chronic obstructive pulmonary disease, unspecified (17) Depression Current Visit: Yes Status: Chronic Assessment and plan: continue home meds Qualifiers: Depression Type: major depressive disorder Major depression recurrence: recurrent Active/Remission status: currently active Major depression episode severity: unspecified Qualified Code(s): F33.9 - Major depressive disorder, recurrent, unspecified (18) Diabetes mellitus type 2 in obese Current Visit: Yes Status: Chronic Assessment and plan: ISS (19) DVT prophylaxis Current Visit: Yes Status: Acute Assessment and plan: SCDs due to thrombocytopenia - Time Spent With Patient Total time spent is greater than 50% in coordination of care (as documented) at patient's floor/unit and/or counseling patient: - Subjective Interval history: Ms. Shaffer is 72 y/o F with known iatrogenic HENRIQUEZ nonalcoholic steato hepatitis, cirrhosis of liver, hepatorenal syndrome, severe scities, CKD-5 pt admitted here for volume overload. Pt had Pt had perm HD cath placed in and started on HD. She is alert, awake and O x3. She had paracnetesis x 2 done here on 11/01 and 11/20. Pt denied any new complaints. She does have generalized weakness and fatigue. Pt was seen by PT / OT who suggested for ECF placement. - Constitutional Vitals: Temp Pulse Resp BP Pulse Ox 97.5 F L 62 18 147/70 93 11/23/17 10:50 11/23/17 13:25 11/23/17 10:50 11/23/17 13:25 11/23/17 07:41 General appearance: Present: cooperative, A&O X 3, no acute distress, answers questions appropriately - Head Head exam: Present: atraumatic, normal inspection - Neck Neck exam general surgery: Present: supple - Respiratory Respiratory exam: Present: decreased breath sounds. Absent: rales, respiratory distress, rhonchi, wheezes - Cardiovascular Cardiovascular exam: Present: RRR, +S1, +S2. Absent: tachycardia - GI/Abdominal GI/Abdominal exam: Present: normal bowel sounds, soft. Absent: rebound, rigid, tenderness - Extremities Exam Extremities exam: Absent: calf tenderness, tenderness - Back Exam Back exam: Absent: CVA tenderness (L), CVA tenderness (R) - Neurological Exam Neurological exam: Present: alert, oriented X3 - Psychiatric Psychiatric exam: Present: normal affect, normal mood - Skin Skin exam: Absent: rash Internal Medicine: Result - Labs CBC & Chem 7: 11/23/17 04:27 11/23/17 04:27 Labs: Short CBC 11/23/17 Range/Units 04:27 WBC 1.2 L (4.3-11.1) K/mcL Hgb 8.9 L (11.5-15.4) g/dL Hct 26.8 L (35.3-44.9) % Plt Count 17 L* D (140-400) K/mcL Neutrophils # 0.6 L (1.6-8.9) K/mcL BMP 11/23/17 04:27 Sodium 136 Potassium 4.2 Chloride 99 Carbon Dioxide 26 BUN 51 H Creatinine 4.23 H Glucose 127 H Calcium 8.9 Liver Function 11/23/17 Range/Units 04:27 Total Bilirubin 2.3 H (0.3-1.0) mg/dL AST 23 (13-39) Units/L ALT 10 (7-52) Units/L Alkaline Phosphatase 61 (34-104) Units/L Albumin 3.3 L (3.5-5.7) g/dL - ABG Interpretation ABG results: PT/INR, D-dimer PT 16.7 Seconds (9.4-12.1) H 11/20/17 05:56 - VTE Documentation of Mechanical Device: Intermittent pneumatic compression device Consult Discharge Plan - Plan Referrals: Rashawn Michaels MD [Non-Partnered Physician] - 12/05/17 3:00 pm (Please follow up a sschedule...) Prescriptions: amLODIPine [Norvasc] 5 mg PO DAILY 5 Days #5 tablet Budesonide/Formoterol 160/4.5 [Symbicort 160/4.5] 2 puff IH BIDR #1 inhaler Propranolol [Inderal] 20 mg PO BID #10 tablet
[2017-11-23] MEDS: Insulin DETEMIR 100 UNIT/ML X5UNITS SQ SCH (21:16)
[2017-11-24 04:17] LABS: Eosinophils % 3.3 %; Hematocrit 26.7 % (35.3-44.9); Hemoglobin 8.7 g/dL (11.5-15.4); Lymphocytes # 0.4 K/mcL (0.6-4.6); Lymphocytes % 32.2 %; Mean Corpuscular HGB Conc 32.6 g/dL (31.6-35.5); Mean Corpuscular Hemoglobin 31.4 pg (28.0-33.3); Mean Corpuscular Volume 96.4 fL (83.0-100.0); Mean Platelet Volume 11.6 fL (9.4-12.4); Monocytes # 0.2 K/mcL (0.0-1.3); Monocytes % 12.4 %; Neutrophils # 0.6 K/mcL (1.6-8.9); Red Blood Count 2.77 M/mcL (3.82-4.97); Red Cell Distribution Width 15.2 % (11.5-14.5); Segmented Neutrophils % 52.1 %
[2017-11-24 04:19] LABS: Platelet Count 18 K/mcL (140-400)
[2017-11-24 04:39] LABS: Albumin 3.6 g/dL (3.5-5.7); Albumin/Globulin Ratio 1.2 (1.1-2.2); Bilirubin,Total 2.7 mg/dL (0.3-1.0); Calcium 9.2 mg/dL (8.6-10.3); Globulin 2.9 g/dL (2.4-3.5); Magnesium 1.9 mg/dL (1.6-2.6); Potassium 4.1 mEq/L (3.5-5.1); Total Protein 6.5 g/dL (6.4-8.9)
[2017-11-24 05:03] LABS: Hypochromasia Present (Not Present); Platelet Estimate Marked Decrease (Normal)
[2017-11-24] MEDS: Insulin LISPRO 300 UNITS/3 ML VIAL SQ SCH ×7 (08:02→20:33)
[2017-11-24] MEDS: amLODIPine 5 MG TABLET PO SCH (08:09)
[2017-11-24] MEDS: Cholecalciferol (D-3) 1,000 UNIT TABLET PO SCH (08:09)
[2017-11-24] MEDS: Budesonide/Formoterol 160/4.5 MDI IH SCH ×2 (09:06→21:44)
--- NOTE | 2017-11-24 09:07 | Internal Med Progress Note ---
Date of Encounter: 11/24/17 Time of Encounter: 09:04 - Assessment and plan (1) Acute respiratory failure with hypoxia Current Visit: Yes Status: Resolved Assessment and plan: Multi factorial, secondary to atypical pneumonia, pulmonary edema, left pleural effusion Improved clinically Currently on 2 lit O2 Finished full course of abx cont Duoneb PRN (2) Physical deconditioning Current Visit: Yes Status: Acute Assessment and plan: Pt does look severely deconditioned PT/ OT reevaluated the pt who suggested ECF placement for short term rehab SW / CM working on ECF placement Waiting on insurance pre cert (3) Thrombocytopenia Current Visit: Yes Status: Acute Assessment and plan: Thrombocytopenia likely secondary to liver failure Platelets dropped down 18 today, ordered another unit of platelets today so far she received 20 U Platelets avoid anti platelet meds (4) Hypertension Current Visit: Yes Status: Chronic Assessment and plan: Continue Norvasc and Propranolol Qualifiers: Hypertension type: essential hypertension Qualified Code(s): I10 - Essential (primary) hypertension (5) Cirrhosis of liver with ascites Current Visit: Yes Status: Acute Assessment and plan: 4 L fluid removed on paracentesis on 11/01 Ascites recollected, s/p paracentensis 11/08 with 1.5 L removed No SBP Continue propranolol AFP was 2, Hepatitis panel negative. No diuretics due to ANTONIO on CKD, Hepatorenal syndrome Qualifiers: Hepatic cirrhosis type: unspecified hepatic cirrhosis Qualified Code(s): K74.60 - Unspecified cirrhosis of liver (6) Hepatorenal syndrome Current Visit: Yes Status: Acute Assessment and plan: management per renal continue HD per renal schedule (7) Acute kidney injury superimposed on chronic kidney disease Current Visit: Yes Status: Acute Assessment and plan: Develop CKD-5, ESRD need HD M/W/F (8) Fall Current Visit: Yes Status: Acute Assessment and plan: PT / OT eval Qualifiers: Encounter type: initial encounter Qualified Code(s): W19.XXXA - Unspecified fall, initial encounter (9) Hypersplenism Current Visit: Yes Status: Chronic Assessment and plan: as in liver disease (10) Pancytopenia Current Visit: Yes Status: Acute Assessment and plan: Possibly secondary to end-stage liver disease Patient received PRBC transfusion X2 units on 11/19/17 RBC transfusion for HB <7 (11) Gastric varices without bleeding Current Visit: Yes Status: Chronic Assessment and plan: secondary to liver disease/portal HTN - Continue Propanolol 20mg PO BID - Continue management of Hepatorenal syndrome. (12) Pleural effusion, left Current Visit: Yes Status: Resolved Assessment and plan: Moderate size as seen on CT chest CXR 11/07 with no pleural effusion Continue O2 supplementation (13) Pneumonia Current Visit: Yes Status: Suspected Assessment and plan: Bacterial Improved Completed antibiotic therapy with IV Levaquin Qualifiers: Pneumonia type: due to unspecified organism Laterality: bilateral Lung location: unspecified part of lung Qualified Code(s): J18.9 - Pneumonia, unspecified organism (14) CHF (congestive heart failure) Current Visit: Yes Status: Acute Assessment and plan: Diastolic CHF euvolemic now ECHO on admission showed preserved EF with moderate LVDD Continue O2 supplementation Continue HD managed by nephrology. Qualifiers: Heart failure type: diastolic Heart failure chronicity: acute on chronic Qualified Code(s): I50.33 - Acute on chronic diastolic (congestive) heart failure (15) Goals of care, counseling/discussion Current Visit: Yes Status: Acute Assessment and plan: Patient is full code During hospital stay: There was a discussion regarding prognosis of her diagnoses. She is wanting to see if hd will help her kidney function electrologist, she wants to be referred for liver transplant at some point in the near future (16) COPD (chronic obstructive pulmonary disease) Current Visit: Yes Status: Acute Assessment and plan: no exacerbations. - Continue current inhalers Qualifiers: COPD type: unspecified COPD Qualified Code(s): J44.9 - Chronic obstructive pulmonary disease, unspecified (17) Depression Current Visit: Yes Status: Chronic Assessment and plan: continue home meds Qualifiers: Depression Type: major depressive disorder Major depression recurrence: recurrent Active/Remission status: currently active Major depression episode severity: unspecified Qualified Code(s): F33.9 - Major depressive disorder, recurrent, unspecified (18) Diabetes mellitus type 2 in obese Current Visit: Yes Status: Chronic Assessment and plan: ISS (19) DVT prophylaxis Current Visit: Yes Status: Acute Assessment and plan: SCDs due to thrombocytopenia - Time Spent With Patient Total time spent is greater than 50% in coordination of care (as documented) at patient's floor/unit and/or counseling patient: - Subjective Interval history: Ms. Shaffer is 72 y/o F with known iatrogenic HENRIQUEZ nonalcoholic steato hepatitis, cirrhosis of liver, hepatorenal syndrome, severe scities, CKD-5 pt admitted here for volume overload. Pt had Pt had perm HD cath placed in and started on HD. She is alert, awake and O x3. She had paracnetesis x 2 done here on 11/01 and 11/20. Pt denied any new complaints. She does have generalized weakness and fatigue. Pt was seen by PT / OT who suggested for ECF placement. No events over night. - Constitutional Vitals: Temp Pulse Resp BP Pulse Ox 97.5 F L 56 19 131/57 93 11/24/17 07:44 11/24/17 07:44 11/24/17 07:44 11/24/17 07:44 11/24/17 07:56 General appearance: Present: cooperative, A&O X 3, no acute distress, answers questions appropriately - Head Head exam: Present: atraumatic, normal inspection - Neck Neck exam general surgery: Present: supple - Respiratory Respiratory exam: Present: decreased breath sounds. Absent: rales, respiratory distress, rhonchi, wheezes - Cardiovascular Cardiovascular exam: Present: RRR, +S1, +S2. Absent: tachycardia - GI/Abdominal GI/Abdominal exam: Present: normal bowel sounds, soft. Absent: rebound, rigid, tenderness - Extremities Exam Extremities exam: Absent: calf tenderness, pedal edema, tenderness - Back Exam Back exam: Absent: CVA tenderness (L), CVA tenderness (R) - Neurological Exam Neurological exam: Present: alert, oriented X3 - Psychiatric Psychiatric exam: Present: normal affect, normal mood Internal Medicine: Result - Labs CBC & Chem 7: 11/24/17 03:53 11/24/17 03:53 Labs: Short CBC 11/24/17 Range/Units 03:53 WBC 1.2 L (4.3-11.1) K/mcL Hgb 8.7 L (11.5-15.4) g/dL Hct 26.7 L (35.3-44.9) % Plt Count 18 L* (140-400) K/mcL Neutrophils # 0.6 L (1.6-8.9) K/mcL BMP 11/24/17 03:53 Sodium 136 Potassium 4.1 Chloride 101 Carbon Dioxide 27 BUN 35 H Creatinine 3.17 H Glucose 143 H Calcium 9.2 Liver Function 11/24/17 Range/Units 03:53 Total Bilirubin 2.7 H (0.3-1.0) mg/dL AST 22 (13-39) Units/L ALT 12 (7-52) Units/L Alkaline Phosphatase 67 (34-104) Units/L Albumin 3.6 (3.5-5.7) g/dL - ABG Interpretation ABG results: PT/INR, D-dimer PT 16.7 Seconds (9.4-12.1) H 11/20/17 05:56 - VTE Documentation of Mechanical Device: Intermittent pneumatic compression device Consult Discharge Plan - Plan Referrals: Rashawn Michaels MD [Non-Partnered Physician] - 12/05/17 3:00 pm (Please follow up a sschedule...) Prescriptions: amLODIPine [Norvasc] 5 mg PO DAILY 5 Days #5 tablet Budesonide/Formoterol 160/4.5 [Symbicort 160/4.5] 2 puff IH BIDR #1 inhaler Propranolol [Inderal] 20 mg PO BID #10 tablet
--- NOTE | 2017-11-24 09:53 | Event Note ---
Date of Encounter: 11/24/17 Time of Encounter: 09:53 Nephrology Chart Review She completed HD yesterday, and will plan for HD on Sunday. I will be available this weekend, and please feel free to call or page me. Thank you.
[2017-11-24] MEDS ORDERED: 0.9 % Sodium Chloride 500 ML ONE (11:02)
[2017-11-24] MEDS: Insulin DETEMIR 100 UNIT/ML X5UNITS SQ SCH (20:35)
[2017-11-25 05:48] LABS: Eosinophils % 3.5 %; Lymphocytes # 0.4 K/mcL (0.6-4.6); Lymphocytes % 34.8 %; Mean Corpuscular HGB Conc 33.3 g/dL (31.6-35.5); Mean Corpuscular Hemoglobin 32.3 pg (28.0-33.3); Mean Corpuscular Volume 96.8 fL (83.0-100.0); Mean Platelet Volume 11.6 fL (9.4-12.4); Monocytes # 0.1 K/mcL (0.0-1.3); Monocytes % 11.3 %; Neutrophils # 0.6 K/mcL (1.6-8.9); Red Blood Count 2.48 M/mcL (3.82-4.97); Red Cell Distribution Width 14.8 % (11.5-14.5); Segmented Neutrophils % 50.4 %
[2017-11-25 05:50] LABS: Platelet Count 16 K/mcL (140-400)
[2017-11-25] MEDS: Budesonide/Formoterol 160/4.5 MDI IH SCH ×2 (07:49→21:41)
[2017-11-25] MEDS: amLODIPine 5 MG TABLET PO SCH (08:11)
[2017-11-25] MEDS: Cholecalciferol (D-3) 1,000 UNIT TABLET PO SCH (08:11)
[2017-11-25] MEDS: Insulin LISPRO 300 UNITS/3 ML VIAL SQ SCH ×7 (08:11→21:54)
--- NOTE | 2017-11-25 08:59 | Internal Med Progress Note ---
Date of Encounter: 11/25/17 Time of Encounter: 08:58 - Assessment and plan (1) Acute respiratory failure with hypoxia Current Visit: Yes Status: Resolved Assessment and plan: Multi factorial, secondary to atypical pneumonia, pulmonary edema, left pleural effusion Improved clinically Currently on 2 lit O2 Finished full course of abx cont Duoneb PRN (2) Physical deconditioning Current Visit: Yes Status: Acute Assessment and plan: Pt does look severely deconditioned PT/ OT reevaluated the pt who suggested ECF placement for short term rehab SW / CM working on ECF placement Waiting on insurance pre cert (3) Thrombocytopenia Current Visit: Yes Status: Acute Assessment and plan: Thrombocytopenia likely secondary to Cirrhosis of liver Platelets dropped down 16 today, ordered another unit of platelets today so far she received 21 U Platelets avoid anti platelet meds (4) Goals of care, counseling/discussion Current Visit: Yes Status: Acute Assessment and plan: Overall poor prognosis due to ESRD, Panycytopenia, non alcooholic cirrhosis of liver with Hepatorenal syndrome, and severe thrombocytopenia Did discuss with the pt and her sister at bed side and goal of care and poor prognosis. She does not wanted to consider palliative care Patient is full code She wanted to see if HD will help her kidney function Also she wanted to be referred for liver transplant at some point in the near future (5) Cirrhosis of liver with ascites Current Visit: Yes Status: Acute Assessment and plan: 4 L fluid removed on paracentesis on 11/01 Ascites recollected, s/p paracentensis 11/08 with 1.5 L removed No SBP Continue propranolol AFP was 2, Hepatitis panel negative. No diuretics due to ANTONIO on CKD, Hepatorenal syndrome Qualifiers: Hepatic cirrhosis type: unspecified hepatic cirrhosis Qualified Code(s): K74.60 - Unspecified cirrhosis of liver (6) Hepatorenal syndrome Current Visit: Yes Status: Acute Assessment and plan: management per renal continue HD per renal schedule (7) Acute kidney injury superimposed on chronic kidney disease Current Visit: Yes Status: Acute Assessment and plan: Develop CKD-5, ESRD need HD M/W/F (8) Fall Current Visit: Yes Status: Acute Assessment and plan: PT / OT eval Qualifiers: Encounter type: initial encounter Qualified Code(s): W19.XXXA - Unspecified fall, initial encounter (9) Hypersplenism Current Visit: Yes Status: Chronic Assessment and plan: as in liver disease (10) Pancytopenia Current Visit: Yes Status: Acute Assessment and plan: Possibly secondary to end-stage liver disease and ESRD Patient received PRBC transfusion X2 units on 11/19/17 RBC transfusion for HB <7 (11) Gastric varices without bleeding Current Visit: Yes Status: Chronic Assessment and plan: secondary to liver disease/portal HTN - Continue Propanolol 20mg PO BID - Continue management of Hepatorenal syndrome. (12) Pleural effusion, left Current Visit: Yes Status: Resolved Assessment and plan: Moderate size as seen on CT chest CXR 11/07 with no pleural effusion Continue O2 supplementation (13) Pneumonia Current Visit: Yes Status: Suspected Assessment and plan: Bacterial Improved Completed antibiotic therapy with IV Levaquin Qualifiers: Pneumonia type: due to unspecified organism Laterality: bilateral Lung location: unspecified part of lung Qualified Code(s): J18.9 - Pneumonia, unspecified organism (14) CHF (congestive heart failure) Current Visit: Yes Status: Chronic Assessment and plan: Diastolic CHF euvolemic now ECHO on admission showed preserved EF with moderate LVDD Continue O2 supplementation Continue HD managed by nephrology. Qualifiers: Heart failure type: diastolic Heart failure chronicity: acute on chronic Qualified Code(s): I50.33 - Acute on chronic diastolic (congestive) heart failure (15) COPD (chronic obstructive pulmonary disease) Current Visit: Yes Status: Acute Assessment and plan: no exacerbations. - Continue current inhalers Qualifiers: COPD type: unspecified COPD Qualified Code(s): J44.9 - Chronic obstructive pulmonary disease, unspecified (16) Diabetes mellitus type 2 in obese Current Visit: Yes Status: Chronic Assessment and plan: ISS (17) Hypertension Current Visit: Yes Status: Chronic Assessment and plan: Continue Norvasc and Propranolol Qualifiers: Hypertension type: essential hypertension Qualified Code(s): I10 - Essential (primary) hypertension (18) Depression Current Visit: Yes Status: Chronic Assessment and plan: continue home meds Qualifiers: Depression Type: major depressive disorder Major depression recurrence: recurrent Active/Remission status: currently active Major depression episode severity: unspecified Qualified Code(s): F33.9 - Major depressive disorder, recurrent, unspecified (19) DVT prophylaxis Current Visit: Yes Status: Acute Assessment and plan: SCDs due to thrombocytopenia - Time Spent With Patient Total time spent is greater than 50% in coordination of care (as documented) at patient's floor/unit and/or counseling patient: - Subjective Interval history: Ms. Shaffer is 72 y/o F with known iatrogenic HENRIQUEZ nonalcoholic steato hepatitis, cirrhosis of liver, hepatorenal syndrome, severe scities, CKD-5 pt admitted here for volume overload. Pt had Pt had perm HD cath placed in and started on HD. She is alert, awake and O x3. She had paracnetesis x 2 done here on 11/01 and 11/20. She does have generalized weakness and fatigue. Pt was seen by PT / OT who suggested for ECF placement. No events over night. Pt denied any new complaints. - Constitutional Vitals: Temp Pulse Resp BP Pulse Ox 97.4 F L 55 18 156/79 95 11/25/17 07:37 11/25/17 07:37 11/25/17 07:49 11/25/17 07:37 11/25/17 07:49 General appearance: Present: cooperative, A&O X 3, no acute distress, answers questions appropriately - Head Head exam: Present: atraumatic, normal inspection - Respiratory Respiratory exam: Present: decreased breath sounds. Absent: rales, respiratory distress, rhonchi, wheezes - Cardiovascular Cardiovascular exam: Present: RRR, +S1, +S2. Absent: tachycardia - GI/Abdominal GI/Abdominal exam: Present: normal bowel sounds, soft. Absent: rebound, rigid, tenderness - Extremities Exam Extremities exam: Absent: calf tenderness, pedal edema, tenderness - Back Exam Back exam: Absent: CVA tenderness (L), CVA tenderness (R) - Psychiatric Psychiatric exam: Present: normal affect, normal mood Internal Medicine: Result - Labs CBC & Chem 7: 11/25/17 04:00 11/24/17 03:53 Labs: Short CBC 11/25/17 Range/Units 04:00 WBC 1.2 L (4.3-11.1) K/mcL Hgb 8.0 L (11.5-15.4) g/dL Hct 24.0 L (35.3-44.9) % Plt Count 16 L* (140-400) K/mcL Neutrophils # 0.6 L (1.6-8.9) K/mcL - ABG Interpretation ABG results: PT/INR, D-dimer PT 16.7 Seconds (9.4-12.1) H 11/20/17 05:56 - VTE Documentation of Mechanical Device: Intermittent pneumatic compression device Consult Discharge Plan - Plan Referrals: Rashawn Michaels MD [Non-Partnered Physician] - 12/05/17 3:00 pm (Please follow up a sschedule...) Prescriptions: amLODIPine [Norvasc] 5 mg PO DAILY 5 Days #5 tablet Budesonide/Formoterol 160/4.5 [Symbicort 160/4.5] 2 puff IH BIDR #1 inhaler Propranolol [Inderal] 20 mg PO BID #10 tablet
[2017-11-25] MEDS: Insulin DETEMIR 100 UNIT/ML X5UNITS SQ SCH (22:02)
[2017-11-26 04:52] LABS: Mean Corpuscular HGB Conc 33.1 g/dL (31.6-35.5)
[2017-11-26 04:53] LABS: Eosinophils # 0.1 K/mcL (0.0-0.6); Hematocrit 23.6 % (35.3-44.9); Hemoglobin 7.8 g/dL (11.5-15.4); Lymphocytes # 0.4 K/mcL (0.6-4.6); Lymphocytes % 33.3 %; Mean Corpuscular Hemoglobin 31.7 pg (28.0-33.3); Mean Corpuscular Volume 95.9 fL (83.0-100.0); Monocytes # 0.1 K/mcL (0.0-1.3); Monocytes % 10.3 %; Neutrophils # 0.7 K/mcL (1.6-8.9); Red Blood Count 2.46 M/mcL (3.82-4.97); Red Cell Distribution Width 15.1 % (11.5-14.5); Segmented Neutrophils % 52.4 %
[2017-11-26 05:00] LABS: Platelet Count 18 K/mcL (140-400)
[2017-11-26 05:08] LABS: Calcium 9.1 mg/dL (8.6-10.3); Potassium 4.5 mEq/L (3.5-5.1)
[2017-11-26 05:35] LABS: Hypochromasia Present (Not Present); Platelet Estimate Marked Decrease (Normal)
[2017-11-26] MEDS ORDERED: 0.9 % Sodium Chloride 250 ML IVC PRN (07:40)
[2017-11-26] MEDS: Budesonide/Formoterol 160/4.5 MDI IH SCH (07:46)
[2017-11-26] MEDS ORDERED: 0.9 % Sodium Chloride 1,000 ML ONE (07:53)
[2017-11-26] MEDS: Cholecalciferol (D-3) 1,000 UNIT TABLET PO SCH (08:11)
[2017-11-26] MEDS: Insulin LISPRO 300 UNITS/3 ML VIAL SQ SCH ×4 (08:12→13:00)
--- NOTE | 2017-11-26 08:55 | Nephrology Progress Note ---
Date of Encounter: 11/26/17 Time of Encounter: 08:55 - Assessment and Plan (1) Acute kidney injury superimposed on chronic kidney disease Current Visit: Yes Status: Acute Dialysis Note: she was seen/examined while on HD. VSS. On exam, ecchymoses noted, likely from her pronounced thrombocytopenia. I spoke with the SW who did help adjust the timing of her HD shift to 2:30pm in [place] Due the thrombocytopenia, I would recommend avoiding Heparin without outpt HD. I annie plan to keep her on a M/W/F schedule while hospitalized. (2) Cirrhosis of liver with ascites Current Visit: Yes Status: Acute As per primary Qualifiers: Hepatic cirrhosis type: unspecified hepatic cirrhosis Qualified Code(s): K74.60 - Unspecified cirrhosis of liver (3) Pancytopenia Current Visit: Yes Status: Acute See above. Will have to avoid Heparin with HD, but the primary etiology apears to to be liver disease with splenic sequestration. (4) Thrombocytopenia Current Visit: Yes Status: Acute See above Subjective Principal diagnosis: howie on ckd Interval history: Pt was s/e while on HD. She did not affirm N/V/D or cramping or dizziness. Objective - Vital Signs Vital signs: Vital Signs Temp Pulse Resp BP Pulse Ox 11/26/17 07:46 16 131/63 98 11/26/17 07:15 98.1 F 59 18 131/63 97 11/26/17 04:59 98.5 F 59 17 129/73 95 11/26/17 00:00 98.4 F 57 17 123/67 94 11/25/17 21:43 16 99 11/25/17 20:15 98.4 F 57 18 107/59 98 11/25/17 16:27 97.5 F L 60 19 112/66 95 11/25/17 11:23 98.1 F 55 18 127/61 93 Intake and Output 11/25/17 11/26/17 11/26/17 23:59 07:59 15:59 Other: Weight 84.9 kg Blood Glucose* 143 145 Patient Weight 11/26/17 23:59 Weight 84.9 kg - General Appearance Exam: General appearance: Present: obese, fatigue, frail EENT: Present: ATNC, PERRL, mucous membranes moist Neck: Present: supple Respiratory: Present: clear Cardiology: Present: edema, regular rate, regular rhythm, normal S1, normal S2 Dialysis Vascular Access: Right sided Permacath Venous Catheter (with exit site C/D/I and the cuff was not exposed) Gastrointestinal: Present: normoactive bowel sounds, no tenderness, no guarding , obese Integumentary: Present: warm and dry, ecchymotic yadi on her legs Neurologic: Present: no focal deficit, alert and oriented x3 Musculoskeletal: Present: no erythema, no clubbing Psychiatric: Present: mood/affect appropriate, cooperative - Lab 11/26/17 04:00 11/26/17 04:00 Most recent lab results Calcium 9.1 mg/dL (8.6-10.3) 11/26/17 04:00 Phosphorus 4.4 mg/dL (2.7-4.5) 11/20/17 12:44 Magnesium 1.9 mg/dL (1.6-2.6) 11/24/17 03:53 Urine Creatinine 98 mg/dL 10/31/17 05:45 Urine Sodium 26.3 mEq/L 11/03/17 16:08 Urine Total Protein 76 mg/dL (1-14) H 10/31/17 05:45 - VTE Documentation of Mechanical Device: Intermittent pneumatic compression device Consult Discharge Plan - Plan Referrals: Rashawn Michaels MD [Non-Partnered Physician] - 12/05/17 3:00 pm (Please follow up a sschedule...) Prescriptions: amLODIPine [Norvasc] 5 mg PO DAILY 5 Days #5 tablet Budesonide/Formoterol 160/4.5 [Symbicort 160/4.5] 2 puff IH BIDR #1 inhaler Propranolol [Inderal] 20 mg PO BID #10 tablet
[2017-11-26] MEDS ORDERED: *HR* Heparin 10,000 UNIT/10 ML VIAL IV PRN (11:59)
[2017-11-26] MEDS: amLODIPine 5 MG TABLET PO SCH (13:01)
--- NOTE | 2017-11-26 14:33 | Discharge Summary ---
- NOTES TO OUTPATIENT PROVIDER Notes to Outpatient Provider: CBC in 2 days. Please transfuse platelets if it' s <15,000..Can be transfused during HD time at dialysis clinic. Go for HD on M/ W/F. f/u with Heme Onc in 1-2 weeks. f/uw ith Nephrology in 1-2 weeks Date of Encounter: 11/26/17 Time of Encounter: 14:30 - Discharge Diagnosis (1) Acute respiratory failure with hypoxia Priority: Primary Status: Resolved (2) Physical deconditioning Priority: Secondary Status: Acute (3) Thrombocytopenia Priority: Secondary Status: Acute (4) Goals of care, counseling/discussion Priority: Secondary Status: Acute (5) Cirrhosis of liver with ascites Priority: Primary Status: Acute Qualifiers: Hepatic cirrhosis type: unspecified hepatic cirrhosis Qualified Code(s): K74.60 - Unspecified cirrhosis of liver (6) Hepatorenal syndrome Priority: Primary Status: Acute (7) Acute kidney injury superimposed on chronic kidney disease Priority: Primary Status: Acute (8) Fall Priority: Secondary Status: Acute Qualifiers: Encounter type: initial encounter Qualified Code(s): W19.XXXA - Unspecified fall, initial encounter (9) Hypersplenism Priority: Secondary Status: Chronic (10) Pancytopenia Priority: Secondary Status: Acute (11) Gastric varices without bleeding Priority: Secondary Status: Chronic (12) Pleural effusion, left Priority: Secondary Status: Resolved (13) Pneumonia Priority: Secondary Status: Suspected Qualifiers: Pneumonia type: due to unspecified organism Laterality: bilateral Lung location: unspecified part of lung Qualified Code(s): J18.9 - Pneumonia, unspecified organism (14) CHF (congestive heart failure) Priority: Secondary Status: Chronic Qualifiers: Heart failure type: diastolic Heart failure chronicity: acute on chronic Qualified Code(s): I50.33 - Acute on chronic diastolic (congestive) heart failure (15) COPD (chronic obstructive pulmonary disease) Priority: Secondary Status: Acute Qualifiers: COPD type: unspecified COPD Qualified Code(s): J44.9 - Chronic obstructive pulmonary disease, unspecified (16) Diabetes mellitus type 2 in obese Priority: Secondary Status: Chronic (17) Hypertension Priority: Secondary Status: Chronic Qualifiers: Hypertension type: essential hypertension Qualified Code(s): I10 - Essential (primary) hypertension (18) Depression Priority: Secondary Status: Chronic Qualifiers: Depression Type: major depressive disorder Major depression recurrence: recurrent Active/Remission status: currently active Major depression episode severity: unspecified Qualified Code(s): F33.9 - Major depressive disorder, recurrent, unspecified (19) DVT prophylaxis Priority: Secondary Status: Acute Hospital course: Ms. Shaffer is a 72 year-old female with h/o cirrhosis, hepatorenal syndrome, and CKD who was transferred to [place] for worsening shortness of breath and abdominal ascites. Workup from outside hospital included blood work that showed serum creatinine 2.[address] abdomen from outside hospital showed sequelae of portal HTN including splenomegaly and abdominal ascites, pleural effusion, and cholelithiasis without acute inflammation. She was admitted for further evaluation of suspected hepatorenal syndrome. During course of hospital stay, patient improved. She did undergo paracentesis with 4L of fluid removal. She was started on propranolol. She had a permacatheter placed while inpatient once her platelets had improved. She underwent dialysis with a nephrology consultation who assisted in her care. Gastroenterology was consulted for cirrhosis during this time. Imaging performed was consistent with cirrhosis, ascites, and moderate pleural effusion. Oncology was also following for her pancytopenia and recommended platelet transfusions for count <15K. Etiology was suspected of end stage liver disease. She was transfused with 3 units PRBCs, 21 units platelets, and 2 units plasma to improve her pancytopenia before dialysis catheter placed. Her shortness of breath was suspected secondary to atypical pneumonia vs pulmonary edema and was treated with Levaquin, prednisone, and dialysis. Pt was scheduled to d/c home on 11/21 however pt was physically so deconditioned, so held her discharge to home. She was evaluated by PT / OT for her deocnditioning who suggested ECF placement for short term rehab, so will d/c her to ECF in stable condition today. Her platelets are at 18K today, recommend to have f/u CBC in 2 days if they are low below <15K recommend platelet transfusion during dialysis at HD clinic. She was instructed to follow up with her PCP and nephrology appointments. - Time Spent with Patient Total time spent providing and/or coordinating discharge services: - Discharge Medications Prescriptions: amLODIPine [Norvasc] 5 mg PO DAILY 5 Days #5 tablet Budesonide/Formoterol 160/4.5 [Symbicort 160/4.5] 2 puff IH BIDR #1 inhaler Propranolol [Inderal] 20 mg PO BID #10 tablet Home Medications: Cholecalciferol (D-3) 5,000 unit PO BID 30 Days tablet 06/18/15 [Rx] Glimepiride [Amaryl] 4 mg PO DAILY tablet 06/18/15 [Rx] Allopurinol [Zyloprim 100 MG] 200 mg PO DAILY 08/06/17 [History] Atorvastatin [Lipitor] 10 mg PO HS 08/06/17 [History] Citalopram Hydrobromide [Citalopram HBr] 40 mg PO DAILY 08/06/17 [History] Cyanocobalamin (B-12) [Vitamin B12] 1,000 mcg IM QMONTH 08/06/17 [History] Folic Acid 1 mg PO DAILY 08/06/17 [History] Spironolactone [Aldactone] 100 mg PO DAILY 08/06/17 [History] Furosemide [Lasix] 20 mg PO QAM 10/31/17 [History] Insulin ASPART [Novolog] 12 unit SQ QPM 10/31/17 [History] Insulin ASPART [Novolog] 22 unit SQ QAM 10/31/17 [History] Budesonide/Formoterol 160/4.5 [Symbicort 160/4.5] 2 puff IH BIDR #1 inhaler [Rx] Propranolol [Inderal] 20 mg PO BID #10 tablet 11/21/17 [Rx] amLODIPine [Norvasc] 5 mg PO DAILY 5 Days #5 tablet 11/21/17 [Rx] Allergies/Adverse Reactions: 3 Allergy/AdvReac Type Severity Reaction Status Date / Time No Known Drug Allergies Allergy See Verified 10/31/17 08:46 Comments Date of admission: 11/02/17 08:47 Primary care physician: Juan Miguel Decker Consults: 10/31/17 03:14 Consult to Interventional Radiology [CONS] Stat Consulting Provider: Radiology Interventional Cols Reason for Consult: Abdominal Ascites, Child Shaffer Score: 9 eval for possible diagnostic and therapeutic paracentesis. Call Completed: No 10/31/17 07:15 Consult to [employer] [CONS] Routine Reason for SW Consult: eval 10/31/17 07:57 Consult to Nephrology [CONS] Routine Consulting Provider: Kidney Kiana/MARK/KERRI/EMERSON Reason for Consult: ANTONIO, hepatorenal syndrome Call Completed: Yes 10/31/17 10:10 Consult to Physical Therapy [CONS] Routine Comment: Evaluate, develop and implement POC Reason for Consult: increased weakness, safe d/c planning. HH vs ECF Does patient have active BEDREST order?: No Is patient medically & hemodynamically stable?: Yes Patient assessed for mobility or mobilized this visit?: No 10/31/17 13:13 Consult to Gastroenterology [CONS] Routine Consulting Provider: Gastroenterology Kiana Reason for Consult: Cirrhosis from HENRIQUEZ with ascites Call Completed: Yes 11/01/17 05:44 Consult to Oncology Hematology [CONS] Routine Consulting Provider: Aliza Benito Reason for Consult: Thrombocytopenia Call Completed: No 11/01/17 20:22 Consult to Urology [CONS] Routine Consulting Provider: Urology Kiana Reason for Consult: Patient has been having urinary retention and reduced urine output. Nephrology consulted and Dr. Carreno's recommendation was for Urology consult d/t urinary retention and reduced output. Indwelling Alatorre catheter in place. Call Completed: Yes 11/02/17 12:41 Consult to Interventional Radiology [CONS] Stat Consulting Provider: Radiology Interventional Cols Reason for Consult: left pleural effusion with hypoxia, thoracentesis Call Completed: Yes 11/08/17 11:50 Consult to Interventional Radiology [CONS] Routine Consulting Provider: Radiology Interventional Cols Reason for Consult: temp cath placement Call Completed: Yes 11/09/17 10:30 Consult to Dialysis [CONS] ONCE 11/10/17 10:00 Consult to Dialysis [CONS] ONCE 11/11/17 10:00 Consult to Dialysis [CONS] ONCE 11/12/17 08:30 Consult to Dialysis [CONS] ONCE 11/14/17 10:30 Consult to Dialysis [CONS] ONCE 11/14/17 12:35 Consult to Interventional Radiology [CONS] Routine Consulting Provider: Radiology Interventional Cols Reason for Consult: Patient will need tunneled dialysis catheter. Call Completed: No 11/14/17 12:36 Consult to [employer] [CONS] Routine Reason for SW Consult: for outpatient dialysis. 11/15/17 10:20 Consult to Interventional Radiology [CONS] Routine Consulting Provider: Radiology Interventional Cols Reason for Consult: Plts ordered for this afternoon 11/15/[address]. [address] HD permacath in the AM. Call Completed: No 11/16/17 08:15 Consult to Dialysis [CONS] ONCE 11/19/17 07:45 Consult to Dialysis [CONS] ONCE 11/19/17 08:00 Consult to Interventional Radiology [CONS] Routine Consulting Provider: Radiology Interventional Cols Reason for Consult: permanent dialysis catheter. Platelets will be given Call Completed: No 11/21/17 08:45 Consult to Dialysis [CONS] ONCE 11/21/17 16:07 Consult to Physical Therapy [CONS] Stat Comment: Evaluate, develop and implement POC Reason for Consult: Please re-evaluate patient, per Dr Bryant Does patient have active BEDREST order?: No Is patient medically & hemodynamically stable?: Yes 11/21/17 16:08 Consult to Occupational Therapy [CONS] Stat Comment: Evaluate, develop and implement POC Reason for Consult: Eval patient per dr bryant Does patient have active BEDREST order?: No Is patient medically & hemodynamically stable?: Yes 11/22/17 13:10 Consult to [employer] [CONS] Stat Reason for SW Consult: Patient states she can not make 0600 chair time for HD. Her family works night clerk. 11/23/17 07:30 Consult to Dialysis [CONS] ONCE 11/26/17 07:45 Consult to Dialysis [CONS] ONCE 11/26/17 08:15 Consult to Dialysis [CONS] ONCE - Constitutional Vitals: Temp Pulse Resp BP Pulse Ox 97.6 F 59 15 125/42 98 11/26/17 12:15 11/26/17 07:15 11/26/17 12:15 11/26/17 12:15 11/26/17 07:46 General appearance: Present: cooperative, A&O X 3, no acute distress, answers questions appropriately - Head Head exam: Present: atraumatic, normal inspection - Neck Neck exam general surgery: Present: supple - Respiratory Respiratory exam: Present: decreased breath sounds. Absent: rales, respiratory distress, rhonchi, wheezes - Cardiovascular Cardiovascular exam: Present: +S1, +S2. Absent: tachycardia - GI/Abdominal GI/Abdominal exam: Present: normal bowel sounds, soft. Absent: rebound, rigid, tenderness - Extremities Exam Extremities exam: Absent: calf tenderness, pedal edema, tenderness - Back Exam Back exam: Absent: CVA tenderness (L), CVA tenderness (R) - Patient Status Disposition: Transfer SNF Condition: Good - Discharge Instructions Follow Up With: Rashawn Michaels MD [Non-Partnered Physician] - 12/05/17 3:00 pm (Please follow up a sschedule...) Ramon Valderrama DO [Partnered Physician] - Hero Ramirez MD [Partnered Physician] - - Diet and Activity Activity: as per physical therapy, increase activity as tolerated Diet: low salt diet - VTE Documentation of Mechanical Device: Intermittent pneumatic compression device
--- NOTE | 2017-11-26 14:41 | Physician Discharge Referral ---
ExtendedCare Referral Info Transfer To: ECF Provider in Charge after Transfer: PCP Institutional Level of Care: Skilled - Diagnosis (1) Acute respiratory failure with hypoxia Status: Resolved (2) Physical deconditioning Status: Acute (3) Thrombocytopenia Status: Acute (4) Goals of care, counseling/discussion Status: Acute (5) Cirrhosis of liver with ascites Status: Acute (6) Hepatorenal syndrome Status: Acute (7) Acute kidney injury superimposed on chronic kidney disease Status: Acute (8) Fall Status: Acute (9) Hypersplenism Status: Chronic (10) Pancytopenia Status: Acute (11) Gastric varices without bleeding Status: Chronic (12) Pleural effusion, left Status: Resolved (13) Pneumonia Status: Suspected (14) CHF (congestive heart failure) Status: Chronic (15) COPD (chronic obstructive pulmonary disease) Status: Acute (16) Diabetes mellitus type 2 in obese Status: Chronic (17) Hypertension Status: Chronic (18) Depression Status: Chronic (19) DVT prophylaxis Status: Acute - Transfer Medications Prescriptions: amLODIPine [Norvasc] 5 mg PO DAILY 5 Days #5 tablet Budesonide/Formoterol 160/4.5 [Symbicort 160/4.5] 2 puff IH BIDR #1 inhaler Propranolol [Inderal] 20 mg PO BID #10 tablet Home Medications: Cholecalciferol (D-3) 5,000 unit PO BID 30 Days tablet 06/18/15 [Rx] Glimepiride [Amaryl] 4 mg PO DAILY tablet 06/18/15 [Rx] Allopurinol [Zyloprim 100 MG] 200 mg PO DAILY 08/06/17 [History] Atorvastatin [Lipitor] 10 mg PO HS 08/06/17 [History] Citalopram Hydrobromide [Citalopram HBr] 40 mg PO DAILY 08/06/17 [History] Cyanocobalamin (B-12) [Vitamin B12] 1,000 mcg IM QMONTH 08/06/17 [History] Folic Acid 1 mg PO DAILY 08/06/17 [History] Spironolactone [Aldactone] 100 mg PO DAILY 08/06/17 [History] Furosemide [Lasix] 20 mg PO QAM 10/31/17 [History] Insulin ASPART [Novolog] 12 unit SQ QPM 10/31/17 [History] Insulin ASPART [Novolog] 22 unit SQ QAM 10/31/17 [History] Budesonide/Formoterol 160/4.5 [Symbicort 160/4.5] 2 puff IH BIDR #1 inhaler [Rx] Propranolol [Inderal] 20 mg PO BID #10 tablet 11/21/17 [Rx] amLODIPine [Norvasc] 5 mg PO DAILY 5 Days #5 tablet 11/21/17 [Rx] Allergies/Adverse Reactions: 3 Allergy/AdvReac Type Severity Reaction Status Date / Time No Known Drug Allergies Allergy See Verified 10/31/17 08:46 Comments - Respiratory Orders Smoking Cessation: Smoking cessation has been advised. For more information, call the [place] Tobacco Quit Line at 4-520-ATDN-NOW. CERTIFICATION: I certify that the transfer of the above named patient to an Extended Care Facility is necessary for the continuing treatment of the diagnosis listed. The above information is true and accurate reflection of patient's current condition. Confidential - Redisclosure prohibited without a patient's written consent.
[2017-11-26 16:36] VITALS: BP 142/65
== END 2017-11-26 16:55 | DRG 291 ==
LOC: 3ANU → SUATTDRO 11-02 08:47 → 2ANU 11-08 17:35
PROVIDERS: ADMIT Student in an Organized Health Care Education/Training Program; ATTEND Family Medicine
PROC: IRPERMA (2017-11-20 12:00)

== ENCOUNTER 2017-12-22 16:27 | Inpatient (IN) ==
[2017-12-22] MEDS ORDERED: *HR* OxyCODONE/APAP 5/325 TABLET PO ONE (16:42)
--- NOTE | 2017-12-22 16:51 | Emergency Department Note ---
Disposition Clinical Impression: Near syncope Disposition: Still a Patient General Adult HPI - General Chief complaint: ED Fall Stated complaint: Fall, Right shoulder pain, low back pain Time Seen by Provider: 12/22/17 16:30 Source: patient, EMS Limitations: no limitations - History of Present Illness Pain Scale: 6 - Related Data Home Medications Medication Instructions Recorded Confirmed Allopurinol [Zyloprim 100 MG] 200 mg PO DAILY 08/06/17 10/31/17 Atorvastatin [Lipitor] 10 mg PO HS 08/06/17 10/31/17 Citalopram Hydrobromide 40 mg PO DAILY 08/06/17 10/31/17 [Citalopram HBr] Cyanocobalamin (B-12) [Vitamin B12] 1,000 mcg IM QMONTH 08/06/17 10/31/17 Folic Acid 1 mg PO DAILY 08/06/17 10/31/17 Insulin ASPART [Novolog] 12 unit SQ QPM 10/31/17 10/31/17 Insulin ASPART [Novolog] 22 unit SQ QAM 10/31/17 10/31/17 Previous Rx's Medication Instructions Recorded Cholecalciferol (D-3) 5,000 unit PO BID 30 Days tablet 06/18/15 Budesonide/Formoterol 160/4.5 2 puff IH BIDR #1 inhaler 11/21/17 [Symbicort 160/4.5] Propranolol [Inderal] 20 mg PO BID #10 tablet 11/21/17 amLODIPine [Norvasc] 5 mg PO DAILY 5 Days #5 tablet 11/21/17 Allergies Allergy/AdvReac Type Severity Reaction Status Date / Time No Known Drug Allergies Allergy See Verified 10/31/17 08:46 Comments Past Medical History - Past Medical History Medical history: Reports: asthma, cirrhosis, diabetes, hypertension, other Surgical history: Reports: hysterectomy, orthopedic, other Psychiatric history: Reports: no psych history [employer]D [employer] FINISHER history: Reports: non-contributory - Social History Smoking Status: Never smoker Smokeless Tobacco Status: No Alcohol use: Reports: none Drug use: Reports: none Physical Exam - General Limitations: no limitations General appearance: alert, in no apparent distress Course - Reevaluation(s) Reevaluation #1: Attestation note I did independently examine and verified the physical examination findings evaluation workup and disposition of this patient. We had independent face-to- face examination and discussion. The patient was seen with the emergency medicine resident Dr. KAMRAN WILDE I examined this patient and my medical decision-making was reviewed with the Resident Physician/PHYSICS TECHNICIAN/PA. I agree with the documented findings, disposition and treatment plan as described except to the extent set forth below. Briefly: 72-year-old female had a near syncopal fall striking her back in the back of her head while she was out at a graduation green party. Patient just started hemodialysis about a month ago. And she has a catheter dialysis catheter in her anterior chest. Patient has no external abrasions lacerations or hematomas. Patient is not on any additional anticoagulants other than use for dialysis. No signs of neurovascular compromise. Patient getting a noncontrast CT the head C-spine T and L-spine. Disposition pending. Time: 16:49 Vital Signs Temperature 98.1 F 12/22/17 16:33 Pulse Rate 60 12/22/17 16:33 Respiratory Rate 18 12/22/17 16:33 Blood Pressure 118/60 12/22/17 16:33 O2 Sat by Pulse Oximetry 88 12/22/17 16:33 Temperature 98.1 F 12/22/17 16:33 Pulse Rate 60 12/22/17 16:33 Respiratory Rate 18 12/22/17 16:33 Blood Pressure 118/60 12/22/17 16:33 O2 Sat by Pulse Oximetry 88 12/22/17 16:33 Oxygen Delivery Oxygen Delivery Room Air
--- NOTE | 2017-12-22 18:33 | Emergency Department Note ---
Disposition Clinical Impression: T12 compression fracture, Hypoxemia, Pulmonary congestion, Pancytopenia Fall Qualifiers: Encounter type: initial encounter Qualified Code(s): W19.XXXA - Unspecified fall, initial encounter Fracture, clavicle closed, shaft Qualifiers: Encounter type: initial encounter Fracture alignment: nondisplaced Laterality: right Qualified Code(s): S42.024A - Nondisplaced fracture of shaft of right clavicle, initial encounter for closed fracture Disposition: Admitted As Inpatient Condition: Fair Time of Disposition: 20:41 Fall HPI - General Chief Complaint: ED Fall Stated Complaint: Fall, Right shoulder pain, low back pain Time Seen by Provider: 12/22/17 16:30 Source: patient, EMS Mode of arrival: EMS Limitations: no limitations Nursing Notes Reviewed: Yes Vital Signs Reviewed: Yes - History of Present Illness HPI Narrative: Patient is a 72-year-old female who presents to [facility] ED status post fall. States she was at a graduation libertarian and twisted funny and fell backwards hitting her head on a brick wall. Denies any loss of consciousness. No prolonged downtime. It was a witnessed fall. Patient has a history of end-stage renal disease on dialysis. Denies any chest pain or difficulty breathing or abdominal pain or problems with urination or bowel movements. Pt Subjective Complaint: fall Onset (ago): Just APPLICATION TESTER Fall From: standing Fall Witnessed: yes Loss of Consciousness: none Prolonged Down Time?: no Symptoms Prior to Fall: none Context: tripped/slipped Location of injury: head, back Location of injury - extremities: Right: shoulder Severity: moderate Quality: aching Associated symptoms (after fall): Denies: neck pain, chest pain, shortness of breath, abdominal pain, confusion - Related Data Home Medications Medication Instructions Recorded Confirmed Allopurinol [Zyloprim 100 MG] 200 mg PO DAILY 08/06/17 10/31/17 Atorvastatin [Lipitor] 10 mg PO HS 08/06/17 10/31/17 Citalopram Hydrobromide 40 mg PO DAILY 08/06/17 10/31/17 [Citalopram HBr] Cyanocobalamin (B-12) [Vitamin B12] 1,000 mcg IM QMONTH 08/06/17 10/31/17 Folic Acid 1 mg PO DAILY 08/06/17 10/31/17 Insulin ASPART [Novolog] 12 unit SQ QPM 10/31/17 10/31/17 Insulin ASPART [Novolog] 22 unit SQ QAM 10/31/17 10/31/17 Previous Rx's Medication Instructions Recorded Cholecalciferol (D-3) 5,000 unit PO BID 30 Days tablet 06/18/15 Budesonide/Formoterol 160/4.5 2 puff IH BIDR #1 inhaler 11/21/17 [Symbicort 160/4.5] Propranolol [Inderal] 20 mg PO BID #10 tablet 11/21/17 amLODIPine [Norvasc] 5 mg PO DAILY 5 Days #5 tablet 11/21/17 Allergies Allergy/AdvReac Type Severity Reaction Status Date / Time No Known Drug Allergies Allergy See Verified 10/31/17 08:46 Comments All systems ED: reviewed and negative except as stated. Fall PMH - Past Medical History Medical history: Reports: asthma, cirrhosis, diabetes, hypertension, other Surgical history: Reports: hysterectomy, orthopedic, other Psychiatric history: Reports: no psych history MINING MANAGER history: Reports: non-contributory - Social History Smoking Status: Never smoker Alcohol use: Reports: none Drug use: Reports: none Physical Exam - General Limitations: no limitations General appearance: alert, in no apparent distress - Head Head exam: atraumatic, normocephalic, normal inspection - Eye Eye exam: Present: normal appearance, PERRL, EOMI - ENT ENT exam: normal exam, normal oropharynx, mucous membranes moist - Neck Neck exam: Present: normal inspection, full ROM, trachea midline - Chest Chest inspection: Present: normal inspection, symmetric chest wall rise, other ( Dialysis catheter present) - Respiratory Respiratory exam: Present: normal lung sounds bilaterally - Cardiovascular Cardiovascular exam: Present: regular rate, normal rhythm, normal heart sounds - Abdominal Exam Abdominal exam: Present: soft, Non-Tender. Absent: tenderness, distention, guarding, rebound, rigidity - Extremities Exam Extremities exam: Present: tenderness (R shoulder pain). Absent: pedal edema - Back Exam Back exam: Present: normal inspection, full ROM, vertebral tenderness (lower thoracic spine) - Neurological Exam Neurological exam: Present: alert, oriented X3. Absent: motor sensory deficit - Psychiatric Psychiatric exam: Present: normal affect, normal mood - Skin Skin exam: Present: warm, dry, intact, normal color Course Course Narrative: Patient seen and examined. Fall prior to arrival. Was like a mechanical fall. Patient denies any syncope prior to this. However upon examining the patient , her oxygenation shows 88% on room air. She is not on any home oxygen. Chest x-ray and EKG ordered. Patient denies any history of heart failure. She is end -stage renal disease on dialysis. Family has some concerns because she has fallen approximately 4 times since she has been out of rehabilitation. They were planning on moving her into her own living place over the next few days. They have concerns that she should not be living by herself. CT of the head, cervical/thoracic/lumbar spine ordered. Chest x-ray and right shoulder x-ray ordered. - Reevaluation(s) Reevaluation #1: Patient does have a R proximal clavicle fracture as well as a T12 spinal compression fracture. We will place her arm in a sling. Patient's saturations continued to be around 88% on room air. We will need to admit for hypoxemia and will work this up further. Her chest x-ray shows signs of congestion. We will admit for evaluation of the pulmonary edema, hypoxemia, pain control for her acute fractures. Basic lab work was added. I discussed the T12 spinal compression fracture with Dr. Garcia who has been consulted. I also discussed the proximal clavicle fracture with orthopedic surgeon Dr. Robledo who will see the patient in consultation. Time: 18:39 Reevaluation #2: Labwork shows signs of pancytopenia which has been chronic. Her platelets are lower than they previously were at 14,000 now. Her prior discharge summary, it sounded like hematology oncology had suggested if the platelets were lower than 15,000 to go ahead and transfuse a unit of platelets. Discussed with carpenter cradle and dolly Dr. De Jesus who recommends going ahead and giving a unit of platelets. This was ordered. I discussed with the hospitalist who has accepted patient for admission. Time: 20:39 Vital Signs Temperature 98.1 F 12/22/17 16:33 Pulse Rate 60 12/22/17 16:33 Respiratory Rate 18 12/22/17 16:33 Blood Pressure 118/60 12/22/17 16:33 O2 Sat by Pulse Oximetry 88 12/22/17 16:33 Temperature 98.1 F 12/22/17 16:33 Pulse Rate 84 12/22/17 19:39 Respiratory Rate 18 12/22/17 19:39 Blood Pressure 116/84 12/22/17 19:39 O2 Sat by Pulse Oximetry 96 12/22/17 19:39 Oxygen Delivery Oxygen Delivery Nasal Cannula Fall - Medical Records Medical records reviewed: Yes I reviewed the patient's medical records. - Lab Data Lab results reviewed: Yes I reviewed the patient's lab results. Result diagrams: 12/22/17 18:26 12/22/17 18:26 Lab Results 12/22/17 12/22/17 12/22/17 Range/Units 18:26 18:26 18:26 WBC 1.5 L (4.3-11.1) K/mcL RBC 2.75 L (3.82-4.97) M/mcL Hgb 9.1 L (11.5-15.4) g/dL Hct 27.6 L (35.3-44.9) % MCV 100.4 H (83.0-100.0) fL MCH 33.1 (28.0-33.3) pg MCHC 33.0 (31.6-35.5) g/dL RDW 17.5 H (11.5-14.5) % Plt Count 14 L* (140-400) K/mcL MPV 11.6 (9.4-12.4) fL Immature Gran % 0.7 (0-4) % Seg Neutrophils % 68.4 % Lymphocytes % 21.5 % Monocytes % 6.7 % Eosinophils % 2.0 % Basophils % 0.7 % Neutrophils # 1.0 L (1.6-8.9) K/mcL Lymphocytes # 0.3 L (0.6-4.6) K/mcL Monocytes # 0.1 (0.0-1.3) K/mcL Eosinophils # 0.0 (0.0-0.6) K/mcL Basophils # 0.0 (0.0-0.2) K/mcL Platelet Estimate Marked Decrease L (Normal) Hypochromasia Present A (Not Present) Anisocytosis 1+ A (Not Present) Sodium 137 (136-145) mEq/L Potassium 4.2 (3.5-5.1) mEq/L Chloride 101 (98-107) mEq/L Carbon Dioxide 28 (23-29) mEq/L BUN 25 H (8-23) mg/dL Creatinine 3.15 H (0.60-1.20) mg/dL Est GFR ( Amer) 18 L (> 60) Est GFR (Non-Af Amer) 15 L (> 60) BUN/Creatinine Ratio 8 (6-26) Glucose 122 H (70-105) mg/dL Calculated Osmolality 290 (280-300) Calcium 9.0 (8.6-10.3) mg/dL Troponin I < 0.03 (< 0.04) ng/mL B-Natriuretic Peptide 347 H (Less than 100) pg/mL - Radiology Data Radiology results reviewed: Yes I reviewed the patient's radiology results. Cervical Spine CT 12/22/17 16:34 IMPRESSION: 1. No acute osseous abnormality of the cervical spine. 2. Acute fracture of the proximal right clavicle, with surrounding induration/blood. D/ / Alvarado Kurtz MD / Alvarado Kurtz MD Interpreting Provider: Alvarado Kurtz MD Head CT 12/22/17 16:34 IMPRESSION: No acute intracranial abnormality. D/ / 12/22/2017 17:26:41 Talon Carranza MD / jennifer Interpreting Provider: Talon Carranza MD Lumbar Spine CT 12/22/17 16:34 IMPRESSION: 1. Decreased bone mineral density. 2. Normal lumbar spine alignment with acute subtle L1 superior endplate acute fracture with approximately 2-4% loss of height. 3. Redemonstration of multilevel degenerative changes resulting in canal and foraminal stenosis. D/ / 12/22/2017 17:32:31 Jaiden Bland MD / jennifer Interpreting Provider: Jaiden Bland MD Thoracic Spine CT 12/22/17 16:34 IMPRESSION: 1. Mild superior endplate compression fracture of T12 appears acute. No retropulsed fragments. The canal is preserved. 2. Left-sided pleural effusion Findings were discussed with Dr Jacobo at 5:30 pm on 12/22/2017. D/ / Jr Mclaughlin MD / Jr Mclaughlin MD Interpreting Provider: Jr Mclaughlin MD Chest X-Ray 12/22/17 16:36 IMPRESSION: Mild vascular congestive changes with small bilateral pleural effusions, left side greater than right. D/ / 12/22/2017 17:39:30 Talon Carranza MD / deneen Interpreting Provider: Talon Carranza MD - EKG Data EKG attestation: Yes I reviewed and interpreted this EKG. EKG results narrative: EKG done at 1753 shows sinus bradycardia with a rate of [address] elevation or depression. Normal axis. Unchanged from prior EKG done 2016.
[2017-12-22 18:35] LABS: Basophils % 0.7 %; Hemoglobin 9.1 g/dL (11.5-15.4); Immature Granulocytes % 0.7 % (0-4)
[2017-12-22 18:37] LABS: Hematocrit 27.6 % (35.3-44.9); Lymphocytes # 0.3 K/mcL (0.6-4.6); Lymphocytes % 21.5 %; Mean Corpuscular Hemoglobin 33.1 pg (28.0-33.3); Mean Corpuscular Volume 100.4 fL (83.0-100.0); Mean Platelet Volume 11.6 fL (9.4-12.4); Monocytes # 0.1 K/mcL (0.0-1.3); Monocytes % 6.7 %; Red Blood Count 2.75 M/mcL (3.82-4.97); Red Cell Distribution Width 17.5 % (11.5-14.5); Segmented Neutrophils % 68.4 %
[2017-12-22 18:57] LABS: BUN/Creatinine Ratio 8 (6-26); Blood Urea Nitrogen 25 mg/dL (8-23); Carbon Dioxide 28 mEq/L (23-29); Chloride 101 mEq/L (98-107); Glucose 122 mg/dL (70-105); Osmolality,Calculated 290 (280-300); Potassium 4.2 mEq/L (3.5-5.1); Sodium 137 mEq/L (136-145); Troponin I < 0.03 ng/mL (< 0.04); eGFR For African Americans 18 (> 60); eGFR For Non-African Americans 15 (> 60)
[2017-12-22 18:59] LABS: Hypochromasia Present (Not Present); Platelet Count 14 K/mcL (140-400)
[2017-12-22 19:00] LABS: Anisocytosis 1+ (Not Present); Platelet Estimate Marked Decrease (Normal)
--- NOTE | 2017-12-22 19:44 | Internal Med History&Physical ---
Date of Encounter: 12/22/17 Time of Encounter: 19:35 Internal Medicine - H&P: HPI Chief complaint: fall Admitted From: Emergency Dept Plans for Post Hospital Care: Home History of present illness: Ms. 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 No LOC. It was a witnessed fall. She was trying to get out at the doorstep using a walker and tripped on the walker itself. Underwent a trauma work up and showed T12 compression fracture, acute subtle L1 superior endplate acute fracture, and acute fracture of proximal right clavicle with surrounding induration/blood. Imaging studies also picked up left sided pleural effusion. This was present last visit in a october into November. at the time, the patient was hospitalized for about 3-4 weeks for shortness of breath. She had paracentesis of 4L removed during the stay. She dialysis catheter placed and started dialysis. She was seen by hematology at the time for pancytopenia as above. This time around, she was noted to be hypoxic at 88% on room air and was put on supplemental oxygen. Platelets were low at 14 and based on previous notes from [facility] [employer], the ED started platelets transfusion as they spoke to hematology. Denies fever, chills, nausea, vomiting , headache, blurry vision, chest pain, abdominal pain, diarrhea, constipation, urinary symptoms, or neurological symptoms Past Med Surg Social Fam HX - Past Medical History Medical history: asthma, cirrhosis, diabetes, hypertension, other Psychiatric history: no psych history - Past Surgical History Surgical History: hysterectomy, orthopedic, other - Social History Smoking Status: Never smoker Smokeless Tobacco Status: No Alcohol use: none Drug use: none - Family History Mother Living Status: Hx Family Neuromuscular Disorders: Yes (Stroke) Father Adopted: No Family Member Ethnicity: Non- Living Status: Hx Family Cardiac Disorders: Yes Hx Family Respiratory Disorders: No Hx Family Cancer: Yes Hx Family GI Disorders: No Hx Family Endocrine Disorder: Yes Hx Family Neuromuscular Disorders: No Hx Family Neurologic Disorders: No Hx Family HEENT Disorders: No Hx Family Autoimmune Disorders: No Internal Medicine - H&P: Meds Cholecalciferol (D-3) 5,000 unit PO BID 30 Days tablet 06/18/15 [Rx] Allopurinol [Zyloprim 100 MG] 200 mg PO DAILY 08/06/17 [History] Atorvastatin [Lipitor] 10 mg PO HS 08/06/17 [History] Citalopram Hydrobromide [Citalopram HBr] 40 mg PO DAILY 08/06/17 [History] Cyanocobalamin (B-12) [Vitamin B12] 1,000 mcg IM QMONTH 08/06/17 [History] Folic Acid 1 mg PO DAILY 08/06/17 [History] Insulin ASPART [Novolog] 12 unit SQ QPM 10/31/17 [History] Insulin ASPART [Novolog] 22 unit SQ QAM 10/31/17 [History] Budesonide/Formoterol 160/4.5 [Symbicort 160/4.5] 2 puff IH BIDR #1 inhaler [Rx] Propranolol [Inderal] 20 mg PO BID #10 tablet 11/21/17 [Rx] amLODIPine [Norvasc] 5 mg PO DAILY 5 Days #5 tablet 11/21/17 [Rx] 3 Allergy/AdvReac Type Severity Reaction Status Date / Time No Known Drug Allergies Allergy See Verified 10/31/17 08:46 Comments All Systems PM: A 10-system review of systems was performed and is negative for pertinent findings except as documented above in the HPI. Review of systems: All systems reviewed are negative except for as mentioned above - Constitutional Vitals: Temp Pulse Resp BP Pulse Ox 98.1 F 60 18 118/60 88 12/22/17 16:33 12/22/17 16:33 12/22/17 16:33 12/22/17 16:33 12/22/17 16:33 Exam: GEN: NAD HEENT: AT, NC, No cyanosis, oral mucosa is moist, No JVD Lymphatics: No lymphadenoapthy Eyes: Extrocular muscles intact, anicteric CVS:RRR. S1, S2, No m/r/g RESP: Diminished with bibasilar crackles ABD: Soft, NT, ND, +BS EXT: No edema. 2+ DP. Patient is unable to lift her right upper extremity. She is able to squeeze my hands bilaterally in upper extremities. She has no sensory deficits. Radial pulses felt bilaterally. NEURO: Nonfocal, CN II-XII intact, No focal motor or sensory deficits Psych: Cooperative, Not anxious or depressed Internal Med - H&P Results - Labs CBC & Chem 7: 12/22/17 18:26 12/22/17 18:26 Labs: Short CBC 12/22/17 Range/Units 18:26 WBC 1.5 L (4.3-11.1) K/mcL Hgb 9.1 L (11.5-15.4) g/dL Hct 27.6 L (35.3-44.9) % Plt Count 14 L* (140-400) K/mcL Neutrophils # 1.0 L (1.6-8.9) K/mcL BMP 12/22/17 18:26 Sodium 137 Potassium 4.2 Chloride 101 Carbon Dioxide 28 BUN 25 H Creatinine 3.15 H Glucose 122 H Calcium 9.0 Cardiac Enzymes 12/22/17 Range/Units 18:26 Troponin I < 0.03 (< 0.04) ng/mL - Impressions ITS Impressions Cervical Spine CT 12/22/17 16:34 IMPRESSION: 1. No acute osseous abnormality of the cervical spine. 2. Acute fracture of the proximal right clavicle, with surrounding induration/blood. D/ / Alvarado Kurtz MD / Alvarado Kurtz MD Interpreting Provider: Alvarado Kurtz MD Head CT 12/22/17 16:34 IMPRESSION: No acute intracranial abnormality. D/ / 12/22/2017 17:26:41 Talon Carranza MD / [facility] Interpreting Provider: Talon Carranza MD Lumbar Spine CT 12/22/17 16:34 IMPRESSION: 1. Decreased bone mineral density. 2. Normal lumbar spine alignment with acute subtle L1 superior endplate acute fracture with approximately 2-4% loss of height. 3. Redemonstration of multilevel degenerative changes resulting in canal and foraminal stenosis. D/ / 12/22/2017 17:32:31 Jaiden Bland MD / jennifer Interpreting Provider: Jaiden Bland MD Thoracic Spine CT 12/22/17 16:34 IMPRESSION: 1. Mild superior endplate compression fracture of T12 appears acute. No retropulsed fragments. The canal is preserved. 2. Left-sided pleural effusion Findings were discussed with Dr Jacobo at 5:30 pm on 12/22/2017. D/ / Jr Mclaughlin MD / Jr Mclaughlin MD Interpreting Provider: Jr Mclaughlin MD Chest X-Ray 12/22/17 16:36 IMPRESSION: Mild vascular congestive changes with small bilateral pleural effusions, left side greater than right. D/ / 12/22/2017 17:39:30 Talon Carranza MD / [facility] [place] [place] Interpreting Provider: Talon Carranza MD Shoulder X-Ray 12/22/17 18:30 IMPRESSION: 1. No acute bony or joint abnormality 2. Mild AC joint degenerative changes D/ / Jr Mclaughlin MD / Jr Mclaughlin MD Interpreting Provider: Jr Mclaughlin MD - Assessment and plan (1) Fracture, clavicle closed, shaft Current Visit: Yes Status: Acute Assessment and plan: c/s orthopedics. NPO after midnight. pain contort. PT/OT once cleared by ortho. Qualifiers: Encounter type: initial encounter Fracture alignment: nondisplaced Laterality: right Qualified Code(s): S42.024A - Nondisplaced fracture of shaft of right clavicle, initial encounter for closed fracture (2) T12 compression fracture Current Visit: Yes Status: Acute Assessment and plan: Pain control. orthopedic to comment on this as well. (3) Lumbar verterbral fracture, traumatic Current Visit: Yes Status: Acute Assessment and plan: Again, orthopedics to comment on this. Pain control for now. (4) Hypoxemia Current Visit: Yes Status: Acute Assessment and plan: Has bilateral pleural effusion with the left pleural effusion greater than right. This was present previously. Multifactorial with ESRD and ESLD. O2 support. HD should help. wean as tolerated. Patient was only 88% on RA. (5) Diabetes mellitus Current Visit: Yes Status: Acute Assessment and plan: Will put the patient on insulin sliding scale. Accuchecks. Qualifiers: Diabetes mellitus type: type 2 Diabetes mellitus intermediate designer insulin use: without alf use Diabetes mellitus complication status: with kidney complications Diabetes mellitus complication detail: with other kidney complication Qualified Code(s): E11.29 - Type 2 diabetes mellitus with other diabetic kidney complication (6) ESRD (end stage renal disease) Current Visit: Yes Status: Acute Assessment and plan: c/s nephrology for resumption of HD (7) Pancytopenia Current Visit: No Status: Acute Assessment and plan: chronic. ED spoke to hematology and ordered to give platelets. Based on previous hematology notes, it seems that hematology wanted a platelet transfusion when less then 15k. (8) Hypertension Current Visit: No Status: Chronic Assessment and plan: c/w home med. Qualifiers: Hypertension type: essential hypertension Qualified Code(s): I10 - Essential (primary) hypertension (9) DVT prophylaxis Current Visit: No Status: Acute Assessment and plan: scds due to low platelets. - Time Spent With Patient Total time spent is greater than 50% in coordination of care (as documented) at patient's floor/unit and/or counseling patient:
[2017-12-22] MEDS ORDERED: Ondansetron 4 MG/2 ML VIAL IVP PRN (19:49)
[2017-12-22] MEDS ORDERED: Naloxone 0.4 MG/ML INJ IVP PRN (19:49)
[2017-12-22] MEDS ORDERED: *HR* Dextrose 50 % in Water (Syg) 50 ML SYRINGE IVP PRN (19:50)
[2017-12-22] MEDS ORDERED: Dextrose Gel 15 GM/37.5 ML TUBE PO PRN ×2 (19:50)
[2017-12-22] MEDS ORDERED: D5% in Water 1,000 ML IVC PRN (19:50)
[2017-12-22 21:03] LABS: INR 1.4
[2017-12-22] MEDS ORDERED: 0.9 % Sodium Chloride 250 ML ONE (22:51)
[2017-12-23] MEDS: Insulin LISPRO 300 UNITS/3 ML VIAL SQ SCH ×5 (04:17→20:24)
[2017-12-23 06:39] LABS: Eosinophils % 2.9 %; Red Cell Distribution Width 17.4 % (11.5-14.5)
[2017-12-23 06:41] LABS: Basophils % 0.7 %; Hematocrit 24.5 % (35.3-44.9); Hemoglobin 8.1 g/dL (11.5-15.4); Lymphocytes # 0.4 K/mcL (0.6-4.6); Lymphocytes % 26.6 %; Mean Corpuscular HGB Conc 33.1 g/dL (31.6-35.5); Mean Corpuscular Hemoglobin 33.3 pg (28.0-33.3); Mean Corpuscular Volume 100.8 fL (83.0-100.0); Mean Platelet Volume 13.3 fL (9.4-12.4); Monocytes # 0.2 K/mcL (0.0-1.3); Monocytes % 10.8 %; Neutrophils # 0.8 K/mcL (1.6-8.9); Red Blood Count 2.43 M/mcL (3.82-4.97)
[2017-12-23 06:44] LABS: Platelet Count 13 K/mcL (140-400)
[2017-12-23 06:58] LABS: Magnesium 2.1 mg/dL (1.6-2.6); Phosphorous 7.3 mg/dL (2.7-4.5)
[2017-12-23 07:01] LABS: Platelet Estimate Decreased (Normal)
[2017-12-23 07:02] LABS: Anisocytosis 1+ (Not Present); Macrocytosis Present (Not Present)
[2017-12-23] MEDS: *HR* OxyCODONE Immed Rel 5 MG TABLET PO PRN ×2 (09:19→16:02)
--- NOTE | 2017-12-23 09:20 | Nephrology Consult Note ---
Date of Encounter: 12/23/17 Time of Encounter: 09:10 Assessment and Plan (1) ESRD (end stage renal disease) Current Visit: Yes Status: Chronic ESRD on HD MWF (primary mail order clerk, according to the pt is Dr. Matthew). She had a full treatment of HD on Sunday, she said, and she is not uremic, acidotic , hyperkalemic, and so I would recommend the next HD to be on Sunday as per her routine. She did present with hypoxia (and of note she has a hx of COPD). She reported to me that she is breathing much more comfortably, but given the hx of her edema , ascites, pleural effusions, I will have her start a low dose lasix. Thrombocytopenia, most likely related to splenic sequestration from her liver disease. As per primary. Continue to follow a renal protective strategy. Thank you for consulting the [facility] group. Will follow with you. (2) Fracture, clavicle closed, shaft Current Visit: Yes Status: Acute As per primary. Be sure to avoid NSAIDs. Qualifiers: Encounter type: initial encounter Fracture alignment: nondisplaced Laterality: right Qualified Code(s): S42.024A - Nondisplaced fracture of shaft of right clavicle, initial encounter for closed fracture (3) Hypoxemia Current Visit: Yes Status: Acute See above. Could also be related to her hx of COPD. (4) COPD (chronic obstructive pulmonary disease) Current Visit: No Status: Chronic See above Qualifiers: COPD type: unspecified COPD Qualified Code(s): J44.9 - Chronic obstructive pulmonary disease, unspecified (5) Recurrent left pleural effusion Current Visit: No Status: Chronic See above: lasix. (6) Thrombocytopenia Current Visit: No Status: Chronic See above. History of Present Illness - Reason for Consult Consult date: 12/23/17 end stage renal disease Requesting physician: Carl Jimenez - Chief Complaint ESRD on HD M/W/F - History of Present Illness Jeanette Shaffer is a very pleasant 72 y/o obese WF with a pmh of HENRIQUEZ cirrhosis of the liver with advanced/chronic thrombocytopenia, progression to ESRD on HD M/W/ F during a recent month long hospitalization and etc who presented with a fall and Clavicular and thoracic fracture. Nephrology was consulted regarding her dialysis history: ESRD on HD M.W.F at [facility] [place] in [place], [place]; pt said her primary mail order clerk is Dr. Matthew; last HD was on Sunday, of which she said there were no problems and was completed in full. She denied having F/C/N/V/D, swelling of the ankles or CP. Her shortness of breath was worse last night but improved with O2 per nasal cannula. The pt reported that her breathing was "all better." She denied OTC NSAID use. Past Med Surg Social Fam HX - Past Medical History Medical history: asthma, cirrhosis, diabetes, hypertension, other Psychiatric history: no psych history - Past Surgical History Surgical History: hysterectomy, orthopedic, other - Social History Smoking Status: Never smoker Smokeless Tobacco Status: No Alcohol use: none Drug use: none - Family History Mother Living Status: Hx Family Cardiac Disorders: Yes Hx Family Neuromuscular Disorders: Yes (Stroke) Father Adopted: No Family Member Ethnicity: Non- Living Status: Cause of : [place] Hx Family Cardiac Disorders: Yes Hx Family Respiratory Disorders: No Hx Family Cancer: Yes Hx Family GI Disorders: No Hx Family Endocrine Disorder: Yes Hx Family Neuromuscular Disorders: No Hx Family Neurologic Disorders: No Hx Family HEENT Disorders: No Hx Family Autoimmune Disorders: No Medications and Allergies Cholecalciferol (D-3) 5,000 unit PO BID 30 Days tablet 06/18/15 [Rx] Allopurinol [Zyloprim 100 MG] 200 mg PO DAILY 08/06/17 [History] Atorvastatin [Lipitor] 10 mg PO HS 08/06/17 [History] Citalopram Hydrobromide [Citalopram HBr] 40 mg PO DAILY 08/06/17 [History] Cyanocobalamin (B-12) [Vitamin B12] 1,000 mcg IM QMONTH 08/06/17 [History] Folic Acid 1 mg PO DAILY 08/06/17 [History] Insulin ASPART [Novolog] 12 unit SQ QPM 10/31/17 [History] Insulin ASPART [Novolog] 22 unit SQ QAM 10/31/17 [History] Budesonide/Formoterol 160/4.5 [Symbicort 160/4.5] 2 puff IH BIDR #1 inhaler [Rx] Propranolol [Inderal] 20 mg PO BID #10 tablet 11/21/17 [Rx] amLODIPine [Norvasc] 5 mg PO DAILY 5 Days #5 tablet 11/21/17 [Rx] 3 Allergy/AdvReac Type Severity Reaction Status Date / Time No Known Drug Allergies Allergy See Verified 10/31/17 08:46 Comments Review of Systems All Systems: reviewed and no additional remarkable complaints except as stated Exam - Vital Signs Vital signs: Initial Vital Signs Temp Pulse Resp BP Pulse Ox 98.1 F 60 18 118/60 88 12/22/17 16:33 12/22/17 16:33 12/22/17 16:33 12/22/17 16:33 12/22/17 16:33 Vital Signs - Last 8 Hours Temp Pulse Resp BP Pulse Ox 12/23/17 08:27 97.5 F L 58 17 120/62 93 12/23/17 05:26 97.9 F 59 16 94/39 96 Intake and Output 12/22/17 12/23/17 12/23/17 23:59 07:59 15:59 Intake Total 0 / 0 450 / 450 Balance 0 / 0 450 / 450 Intake: Oral 0 / 0 Blood Product 0 / 0 450 / 450 Platelet Pheresis Lp Irr 1st 0 / 0 450 / 450 Unit [id number] Other: Weight 84.5 kg 80.6 kg Blood Glucose* 116 104 Patient Weight 12/23/17 23:59 Weight 80.6 kg - General Appearance General appearance: well-developed, well-nourished, appears started age EENT: ATNC, PERRL, mucous membranes moist Neck: supple Respiratory: clear Cardiology: no edema, regular rate, regular rhythm, normal S1, normal S2 Gastrointestinal: normoactive bowel sounds, no tenderness, no guarding, obese Integumentary: warm and dry Neurologic: no focal deficit, alert and oriented x3 (with fluent speech) Musculoskeletal: no cyanosis, no clubbing Psychiatric: mood/affect appropriate, cooperative Results - Lab Results 12/23/17 06:11 12/23/17 06:11 Most recent lab results Calcium 9.0 mg/dL (8.6-10.3) 12/23/17 06:11 Phosphorus 7.3 mg/dL (2.7-4.5) H 12/23/17 06:11 Magnesium 2.1 mg/dL (1.6-2.6) 12/23/17 06:11 I reviewed the labs, meds, vitals and imaging and progress notes. Consult Discharge Plan - Plan Referrals: Rashawn Michaels MD [Primary Care Provider] -
--- NOTE | 2017-12-23 09:42 | Internal Med Progress Note ---
Date of Encounter: 12/23/17 Time of Encounter: 09:30 - Assessment and plan (1) Fracture, clavicle closed, shaft Current Visit: Yes Status: Acute Assessment and plan: Pending orthopedic evaluation. Continue sliding at present. Pain is adequately controlled. Qualifiers: Encounter type: initial encounter Fracture alignment: nondisplaced Laterality: right Qualified Code(s): S42.024A - Nondisplaced fracture of shaft of right clavicle, initial encounter for closed fracture (2) Lumbar verterbral fracture, traumatic Current Visit: Yes Status: Acute Assessment and plan: Pain control (3) T12 compression fracture Current Visit: Yes Status: Acute Assessment and plan: Pain control (4) Pancytopenia Current Visit: Yes Status: Acute Assessment and plan: For review of last hematology note from October 2017 this was attributed to [place]OR[place]. She will see hematology in clinic. Based on whether surgery is planned or not , we will decide on transfusion. (5) Hypertension Current Visit: No Status: Chronic Assessment and plan: c/w home med. Qualifiers: Hypertension type: essential hypertension Qualified Code(s): I10 - Essential (primary) hypertension (6) Hypoxemia Current Visit: Yes Status: Acute Assessment and plan: Likely related volume overload from ESRD. Dialysis schedule Sunday. Nephrology wishes to trial lasix. (7) Diabetes mellitus Current Visit: Yes Status: Acute Assessment and plan: Will put the patient on insulin sliding scale. Accuchecks. Qualifiers: Diabetes mellitus type: type 2 Diabetes mellitus long chain beamer insulin use: without long chain beamer use Diabetes mellitus complication status: with kidney complications Diabetes mellitus complication detail: with other kidney complication Qualified Code(s): E11.29 - Type 2 diabetes mellitus with other diabetic kidney complication (8) ESRD (end stage renal disease) Current Visit: Yes Status: Chronic Assessment and plan: c/s nephrology for resumption of HD (9) DVT prophylaxis Current Visit: No Status: Acute Assessment and plan: scds due to low platelets. - Time Spent With Patient Total time spent is greater than 50% in coordination of care (as documented) at patient's floor/unit and/or counseling patient: 25 - 35 minutes - Subjective Interval history: Pain is adequately controlled. No events overnight. No new complaints. - Constitutional Vitals: Temp Pulse Resp BP Pulse Ox 97.5 F L 58 17 120/62 93 12/23/17 08:27 12/23/17 08:27 12/23/17 08:27 12/23/17 08:27 12/23/17 08:27 Exam: Physical exam Gen: Comfortable, laying in bed, in no visible distress HEENT: Normocephalic, atraumatic. No conjunctival icterus. Moist oral mucosa. Neck: Supple Lungs: Clear to auscultation, no foreign sounds Heart: Normal S1-S2, no murmurs rubs or gallops, or known right subclavian hemodialysis catheter Abdomen: Normoactive bowel sounds, no guarding rigidity or tenderness Extremities: No edema clubbing or cyanosis Neuro: Alert oriented 3, no focal deficits Skin: No skin lesions Internal Medicine: Result - Labs CBC & Chem 7: 12/23/17 06:11 12/23/17 06:11 Labs: Short CBC 12/22/17 12/23/17 12/23/17 Range/Units 20:26 06:11 06:11 WBC 1.4 L (4.3-11.1) K/mcL RBC 2.43 L (3.82-4.97) M/mcL Hgb 8.1 L (11.5-15.4) g/dL Hct 24.5 L (35.3-44.9) % MCV 100.8 H (83.0-100.0) fL MCH 33.3 (28.0-33.3) pg MCHC 33.1 (31.6-35.5) g/dL RDW 17.4 H (11.5-14.5) % Plt Count 13 L* (140-400) K/mcL MPV 13.3 H (9.4-12.4) fL Immature Gran % 0.0 (0-4) % Seg Neutrophils % 59.0 % Lymphocytes % 26.6 % Monocytes % 10.8 % Eosinophils % 2.9 % Basophils % 0.7 % Neutrophils # 0.8 L (1.6-8.9) K/mcL Lymphocytes # 0.4 L (0.6-4.6) K/mcL Monocytes # 0.2 (0.0-1.3) K/mcL Eosinophils # 0.0 (0.0-0.6) K/mcL Basophils # 0.0 (0.0-0.2) K/mcL Platelet Estimate Decreased L (Normal) Anisocytosis 1+ A (Not Present) Macrocytosis Present A (Not Present) PT 15.0 H (9.4-12.1) Seconds INR 1.4 Sodium 139 (136-145) mEq/L Potassium 4.0 (3.5-5.1) mEq/L Chloride 103 (98-107) mEq/L Carbon Dioxide 29 (23-29) mEq/L BUN 33 H (8-23) mg/dL Creatinine 3.63 H (0.60-1.20) mg/dL Est GFR ( Amer) 15 L (> 60) Est GFR (Non-Af Amer) 12 L (> 60) BUN/Creatinine Ratio 9 (6-26) Glucose 105 (70-105) mg/dL Calculated Osmolality 296 (280-300) Calcium 9.0 (8.6-10.3) mg/dL Phosphorus 7.3 H (2.7-4.5) mg/dL Magnesium 2.1 (1.6-2.6) mg/dL BMP 12/23/17 06:11 Sodium 139 Potassium 4.0 Chloride 103 Carbon Dioxide 29 BUN 33 H Creatinine 3.63 H Glucose 105 Calcium 9.0 - ABG Interpretation ABG results: PT/INR, D-dimer PT 15.0 Seconds (9.4-12.1) H 12/22/17 20:26 Consult Discharge Plan - Plan Referrals: Rashawn Michaels MD [Primary Care Provider] -
[2017-12-23] MEDS ORDERED: NON-FORMULARY MEDICATION 1 EACH EACH (Cyanocobalamin (B-12) 1,000 MCG) IM SCH (10:00)
[2017-12-23] MEDS: Furosemide 40 MG TABLET PO SCH (10:26)
[2017-12-23] MEDS: Calcium Acetate 667 MG CAPSULE PO SCH ×2 (10:26→17:08)
--- NOTE | 2017-12-23 16:00 | Orthopedic Consult Note ---
Date of Encounter: 12/23/17 Time of Encounter: 15:55 History of Present Illness Chief complaint: Right clavicle pain HPI: Ms. Shaffer is a 72 year old [id number] female who sustained an injury to her right shoulder and her back when she sustained a fall. She was seen in the emergency room where x-rays taken were relatively unremarkable. CT scan of the cervical and thoracic spine were performed. These revealed evidence of a clavicle fractured his proximal end. Patient denies neurovascular complaints. For complete history and physical data please refer the completed portion of the medical record. I did review the patient's past medical surgical history as well as medications and allergies. Physical examination reveals a pleasant 72-year-old woman in minimal distress while lying in hospital bed. There is some fullness and tenderness at the right side of the sternoclavicular joint. Left side is nontender. Shoulder exam is somewhat limited. I reviewed x-rays. She had x-rays taken of both shoulders on 1717. These did not reveal any obvious fractures etc. She does have arthritic changes at the acromioclavicular joints bilaterally. A right shoulder x-ray taken on 1917 likewise does not reveal any obvious fractures. There are degenerative changes at the acromioclavicular joint. Chest x-ray does not offer any further visualization. Patient did have CT scan of both the thoracic spine and the cervical spine. The combined use of these studies has revealed a comminuted though nondisplaced intra-articular fracture of the proximal portion of the right clavicle. Impression: Comminuted fracture sternal end right clavicle Recommendation: This fracture does not require any intervention. Would utilize a sling as needed and patient can begin range of motion exercises as tolerated. Pain management as necessary. Would wean from sling and I will allow patient to use C-arm in to encourage range of motion. We will need follow-up including x-rays in about 3 weeks' time. Thank you for allowing me to seen care for Mrs. Shaffer. Sincerely, Ganga Robledo, DO Past Med Surg Social Fam HX - Past Medical History Medical history: asthma, cirrhosis, diabetes, hypertension, other Psychiatric history: no psych history - Past Surgical History Surgical History: hysterectomy, orthopedic, other - Social History Smoking Status: Never smoker Smokeless Tobacco Status: No Alcohol use: none Drug use: none - Family History Mother Living Status: Hx Family Cardiac Disorders: Yes Hx Family Neuromuscular Disorders: Yes (Stroke) Father Adopted: No Family Member Ethnicity: Non- Living Status: Cause of : [place] Hx Family Cardiac Disorders: Yes Hx Family Respiratory Disorders: No Hx Family Cancer: Yes Hx Family GI Disorders: No Hx Family Endocrine Disorder: Yes Hx Family Neuromuscular Disorders: No Hx Family Neurologic Disorders: No Hx Family HEENT Disorders: No Hx Family Autoimmune Disorders: No Medications and Allergies Cholecalciferol (D-3) 5,000 unit PO BID 30 Days tablet 06/18/15 [Rx] Allopurinol [Zyloprim 100 MG] 200 mg PO DAILY 08/06/17 [History] Atorvastatin [Lipitor] 10 mg PO HS 08/06/17 [History] Citalopram Hydrobromide [Citalopram HBr] 40 mg PO DAILY 08/06/17 [History] Cyanocobalamin (B-12) [Vitamin B12] 1,000 mcg IM QMONTH 08/06/17 [History] Folic Acid 1 mg PO DAILY 08/06/17 [History] Insulin ASPART [Novolog] 12 unit SQ QPM 10/31/17 [History] Insulin ASPART [Novolog] 22 unit SQ QAM 10/31/17 [History] Propranolol [Inderal] 20 mg PO BID #10 tablet 11/21/17 [Rx] amLODIPine [Norvasc] 5 mg PO DAILY 5 Days #5 tablet 11/21/17 [Rx] Calcium Acetate [Phos-LO] 667 mg PO DAILY 12/23/17 [History] Fluticasone/Vilanterol [Breo Ellipta 100-25 Mcg INH] 1 puff IH DAILY 12/23/17 [ History] 3 Allergy/AdvReac Type Severity Reaction Status Date / Time No Known Drug Allergies Allergy See Verified 10/31/17 08:46 Comments All Systems Reviewed: The remainder of the systems were reviewed and are negative Physical Exam - Constitutional Vitals: Temp Pulse Resp BP Pulse Ox 98.0 F 60 18 100/61 92 12/23/17 11:19 12/23/17 11:19 12/23/17 11:19 12/23/17 11:19 12/23/17 11:19 - Fracture right clavicle Location of fracture: Proximal at sternoclavicular joint Appearance: swelling, other (No deformity) Distal joint involvement: No Results - Labs Result Diagrams: 12/23/17 06:11 12/23/17 06:11 Labs: Abnormal lab results WBC 1.4 K/mcL (4.3-11.1) L 12/23/17 06:11 RBC 2.43 M/mcL (3.82-4.97) L 12/23/17 06:11 Hgb 8.1 g/dL (11.5-15.4) L 12/23/17 06:11 Hct 24.5 % (35.3-44.9) L 12/23/17 06:11 MCV 100.8 fL (83.0-100.0) H 12/23/17 06:11 RDW 17.4 % (11.5-14.5) H 12/23/17 06:11 Plt Count 13 K/mcL (140-400) L* 12/23/17 06:11 MPV 13.3 fL (9.4-12.4) H 12/23/17 06:11 Neutrophils # 0.8 K/mcL (1.6-8.9) L 12/23/17 06:11 Lymphocytes # 0.4 K/mcL (0.6-4.6) L 12/23/17 06:11 Platelet Estimate Decreased (Normal) L 12/23/17 06:11 Hypochromasia Present (Not Present) A 12/22/17 18:26 Anisocytosis 1+ (Not Present) A 12/23/17 06:11 Macrocytosis Present (Not Present) A 12/23/17 06:11 PT 15.0 Seconds (9.4-12.1) H 12/22/17 20:26 BUN 33 mg/dL (8-23) H 12/23/17 06:11 Creatinine 3.63 mg/dL (0.60-1.20) H 12/23/17 06:11 Est GFR ( Amer) 15 (> 60) L 12/23/17 06:11 Est GFR (Non-Af Amer) 12 (> 60) L 12/23/17 06:11 Phosphorus 7.3 mg/dL (2.7-4.5) H 12/23/17 06:11 B-Natriuretic Peptide 347 pg/mL (Less than 100) H 12/22/17 18:26 H & H 12/23/17 Range/Units 06:11 Hgb 8.1 L (11.5-15.4) g/dL Hct 24.5 L (35.3-44.9) % All other labs normal. Consult Discharge Plan - Plan Referrals: Rashawn Michaels MD [Primary Care Provider] -
--- NOTE | 2017-12-23 18:23 | Oncology Inp Consult Note ---
Date of Encounter: 12/24/17 Time of Encounter: 18:20 Assessment and Plan (1) Pancytopenia Status: Acute Assessment and plan: Most likely this is from cirrhosis . Her neutrophils currently 800. Platelets 13,000. Macrocytic anemia MCV 100 hemoglobin 8.1 and more stuff this dates back to 2014 All of this could be related to cirrhosis area if underlying bone marrow problem like MDS has to be ruled out would consider bone marrow biopsy. That can be done as an outpatient Agree with platelet transfusion given her recent fall to keep the platelets above 20,000 Frequent platelet transfusion may lead to antibody formation and platelets could be short-lived FDA approved on 12/24/2017 avatrombopage is a second generation TPO receptor agonist. To be given for 5 days. This may be used prior to any procedure in patients with chronic liver disease.. This is still a short-term solution to minimize bleeding up to 7 days - Data of Consult Patient: known to practice within the last 3 years Requesting Physician: Carl Jimenez Primary Care Provider: Rashawn Michaels, - Consult Narrative Reason for consult: Pancytopenia History of present illness: Ms. Shaffer is a 72 year old female admitted after accidental fall and CT scan showed right proximal clavicle fracture in orthopedics consulted Platelet count on admission 13,000 and she received 1 unit of apheresed platelet transfusion. Medical problems 1. Cirrhosis with end-stage liver disease. Most likely cirrhosis is secondary to long-standing diabetes. Anti- mitochondrial antibody negative Alpha-fetoprotein 2.5 in 2014 and we will repeat that Large Volume ascites and hepatosplenomegaly spleen size about 20 cm by CAT scan 10/31/2017 4 L of acetic fluid drained around 11/01/2017. AST ALT normal INR 1.5 She was evaluated by Dr. Nuno [facility] the past.. She may benefit from TIPS/liver transplant 2. Acute on chronic renal failure. Her baseline creatinine increased to 2 range from 1. Nephrology involved 3. Pancytopenia. Platelet count 20,000. Her platelet counts are in this range dating back to 02/16/2015. Neutrophilslow at 1500 hemoglobin 8.7 MCV 95 B12 folate TSH normal Her hematological problems cannot be reversed given end-stage liver disease. Recommend platelet transfusion if platelet counts drop below 10,000 or clinical evidence of bleeding Past Med Surg Social Fam HX - Past Medical History Medical history: asthma, cirrhosis, diabetes, hypertension, other Psychiatric history: no psych history - Past Surgical History Surgical History: hysterectomy, orthopedic, other - Social History Smoking Status: Never smoker Smokeless Tobacco Status: No Alcohol use: none Drug use: none - Family History Mother Living Status: Hx Family Cardiac Disorders: Yes Hx Family Neuromuscular Disorders: Yes (Stroke) Father Adopted: No Family Member Ethnicity: Non- Living Status: Cause of : [place] Hx Family Cardiac Disorders: Yes Hx Family Respiratory Disorders: No Hx Family Cancer: Yes Hx Family GI Disorders: No Hx Family Endocrine Disorder: Yes Hx Family Neuromuscular Disorders: No Hx Family Neurologic Disorders: No Hx Family HEENT Disorders: No Hx Family Autoimmune Disorders: No Medications and Allergies Cholecalciferol (D-3) 5,000 unit PO BID 30 Days tablet 06/18/15 [Rx] Allopurinol [Zyloprim 100 MG] 200 mg PO DAILY 08/06/17 [History] Atorvastatin [Lipitor] 10 mg PO HS 08/06/17 [History] Citalopram Hydrobromide [Citalopram HBr] 40 mg PO DAILY 08/06/17 [History] Cyanocobalamin (B-12) [Vitamin B12] 1,000 mcg IM QMONTH 08/06/17 [History] Folic Acid 1 mg PO DAILY 08/06/17 [History] Insulin ASPART [Novolog] 12 unit SQ QPM 10/31/17 [History] Insulin ASPART [Novolog] 22 unit SQ QAM 10/31/17 [History] Propranolol [Inderal] 20 mg PO BID #10 tablet 11/21/17 [Rx] amLODIPine [Norvasc] 5 mg PO DAILY 5 Days #5 tablet 11/21/17 [Rx] Calcium Acetate [Phos-LO] 667 mg PO DAILY 12/23/17 [History] Fluticasone/Vilanterol [Breo Ellipta 100-25 Mcg INH] 1 puff IH DAILY 12/23/17 [ History] 3 Allergy/AdvReac Type Severity Reaction Status Date / Time No Known Drug Allergies Allergy See Verified 10/31/17 08:46 Comments Review of systems: Conscious alert and oriented. Clinically no bleeding. Breathing is stable. Oncology - Exam - Constitutional Vitals: Temp Pulse Resp BP Pulse Ox 98.6 F 60 17 114/68 90 12/23/17 16:02 12/23/17 16:02 05/20/18 16:02 12/23/17 16:02 12/23/17 16:02 Exam: GENERAL: Alert and oriented, well appearing. Mental Status: Affect appropriate for circumstances HEENT: Sclerae anicteric. No mucositis or thrush. No other oral or pharyngeal lesions or erythema. Skin: No rashes or petechiae. No evidence of skin malignancy Lymph nodes: No cervical, supraclavicular, axillary, or inguinal adenopathy. Lungs: Air entry normal with normal breath sounds. No rhonchi or wheezing Cardiovascular: Regular rate and rhythm. No skipped beats Abdomen: Soft, nontender; no organomegaly or masses palpable. Extremities: No edema. No calf swelling or tenderness. No joint deformity. Neurologic: Alert, cranial nerves II-XII intact; normal gait; no focal weakness or sensory abnormalities Oncology - Results Labs: Short CBC 12/23/17 Range/Units 06:11 WBC 1.4 L (4.3-11.1) K/mcL Hgb 8.1 L (11.5-15.4) g/dL Hct 24.5 L (35.3-44.9) % Plt Count 13 L* (140-400) K/mcL Neutrophils # 0.8 L (1.6-8.9) K/mcL BMP 12/23/17 06:11 Sodium 139 Potassium 4.0 Chloride 103 Carbon Dioxide 29 BUN 33 H Creatinine 3.63 H Glucose 105 Calcium 9.0 Consult Discharge Plan - Plan Referrals: Rashawn Michaels MD [Primary Care Provider] -
[2017-12-23] MEDS: Cholecalciferol (D-3) 1,000 UNIT TABLET PO SCH (20:29)
[2017-12-23] MEDS: Budesonide/Formoterol 160/4.5 MDI IH SCH (23:02)
[2017-12-24] MEDS ORDERED: 0.9 % Sodium Chloride 250 ML IVC PRN (07:11)
[2017-12-24 07:23] LABS: Calcium 8.4 mg/dL (8.6-10.3); Potassium 4.1 mEq/L (3.5-5.1)
[2017-12-24 07:24] LABS: Hemoglobin 7.9 g/dL (11.5-15.4); Red Cell Distribution Width 17.5 % (11.5-14.5)
[2017-12-24 07:25] LABS: Basophils % 1.4 %; Eosinophils % 2.8 %; Hematocrit 23.5 % (35.3-44.9); Lymphocytes # 0.4 K/mcL (0.6-4.6); Lymphocytes % 28.3 %; Mean Corpuscular HGB Conc 33.6 g/dL (31.6-35.5); Mean Corpuscular Hemoglobin 34.8 pg (28.0-33.3); Mean Corpuscular Volume 103.5 fL (83.0-100.0); Mean Platelet Volume 12.7 fL (9.4-12.4); Monocytes % 9.7 %; Nucleated Red Blood Cells 1.4 /100 WBC (0); Red Blood Count 2.27 M/mcL (3.82-4.97); Segmented Neutrophils % 57.8 %
[2017-12-24 07:31] LABS: Monocytes # 0.2 K/mcL (0.0-1.3); Neutrophils # 0.9 K/mcL (1.6-8.9)
[2017-12-24 07:33] LABS: Platelet Count 16 K/mcL (140-400)
[2017-12-24] MEDS: Budesonide/Formoterol 160/4.5 MDI IH SCH ×2 (07:37→22:22)
[2017-12-24] MEDS: Insulin LISPRO 300 UNITS/3 ML VIAL SQ SCH ×4 (07:41→20:44)
[2017-12-24 07:55] LABS: Anisocytosis 1+ (Not Present); Platelet Estimate Decreased (Normal)
[2017-12-24 07:56] LABS: Macrocytosis Present (Not Present); Polychromasia 1+ (Not Present)
[2017-12-24] MEDS: amLODIPine 5 MG TABLET PO SCH (08:22)
[2017-12-24 08:47] LABS: Hepatitis B Surface Antigen Nonreactive (Nonreactive)
[2017-12-24 08:48] LABS: Hepatitis B Surface Antibody 39.72 mIU/mL
--- NOTE | 2017-12-24 09:05 | Nephrology Progress Note ---
Date of Encounter: 12/24/17 Time of Encounter: 08:30 - Assessment and Plan (1) ESRD (end stage renal disease) Current Visit: Yes Status: Chronic I've arranged for dialysis today, during which I've ordered no heparin d/t her thrombocytopenia. (2) Fracture, clavicle closed, shaft Current Visit: Yes Status: Acute As per primary. Would recommend avoiding NSAIDs since she still has residual renal function worth protecting. Qualifiers: Encounter type: initial encounter Fracture alignment: nondisplaced Laterality: right Qualified Code(s): S42.024A - Nondisplaced fracture of shaft of right clavicle, initial encounter for closed fracture (3) Hypoxemia Current Visit: Yes Status: Acute As per primary. (4) COPD (chronic obstructive pulmonary disease) Current Visit: No Status: Chronic Qualifiers: COPD type: unspecified COPD Qualified Code(s): J44.9 - Chronic obstructive pulmonary disease, unspecified (5) Recurrent left pleural effusion Current Visit: No Status: Chronic (6) Thrombocytopenia Current Visit: No Status: Chronic I read Hematology's notes and agree with a proper work up. Subjective Principal diagnosis: Chronic dialysis Interval history: Pt was seen/examined. She voiced that she hopes to discharge soon. She did not affirm N/V/D or diminished appetite. Objective - Vital Signs Vital signs: Vital Signs Temp Pulse Resp BP Pulse Ox 12/24/17 06:56 98.2 F 64 16 128/69 91 12/24/17 03:24 98.0 F 65 16 97/56 93 12/24/17 00:05 98.1 F 65 16 120/67 93 12/23/17 19:59 98.2 F 60 16 104/59 90 12/23/17 16:02 98.6 F 60 17 114/68 90 12/23/17 11:19 98.0 F 60 18 100/61 92 12/23/17 09:23 93 Intake and Output 12/23/17 12/24/17 12/24/17 23:59 07:59 15:59 Intake Total 0 / 0 0 / 0 120 / 120 Output Total 450 / 450 Balance -450 / -450 0 / 0 120 / 120 Intake: Oral 0 / 0 0 / 0 120 / 120 Output: Straight Cath 450 / 450 Other: Meal Breakfast Percent of Meal Consumed 95% Weight 78.6 kg Blood Glucose* 116 133 Patient Weight 12/24/17 23:59 Weight 78.6 kg - General Appearance Exam: General appearance: well-developed, well-nourished, appears started age EENT: ATNC, PERRL, mucous membranes moist Neck: supple Respiratory: clear Cardiology: no edema, regular rate, regular rhythm, normal S1, normal S2 Gastrointestinal: normoactive bowel sounds, no tenderness, no guarding, obese Integumentary: warm and dry Neurologic: no focal deficit, alert and oriented x3 (with fluent speech) Musculoskeletal: no cyanosis, no clubbing Psychiatric: mood/affect appropriate, cooperative - Lab 12/24/17 06:36 12/24/17 06:36 Most recent lab results Calcium 8.4 mg/dL (8.6-10.3) L 12/24/17 06:36 Phosphorus 7.3 mg/dL (2.7-4.5) H 12/23/17 06:11 Magnesium 2.1 mg/dL (1.6-2.6) 12/23/17 06:11 Consult Discharge Plan - Plan Referrals: Rashawn Michaels MD [Primary Care Provider] -
[2017-12-24] MEDS: Calcium Acetate 667 MG CAPSULE PO SCH ×3 (09:24→17:03)
[2017-12-24] MEDS: Folic Acid 1 MG TABLET PO SCH (09:24)
[2017-12-24] MEDS: Cholecalciferol (D-3) 1,000 UNIT TABLET PO SCH (09:25)
[2017-12-24] MEDS: Furosemide 40 MG TABLET PO SCH (09:25)
--- NOTE | 2017-12-24 11:22 | Internal Med Progress Note ---
Date of Encounter: 12/24/17 Time of Encounter: 11:20 - Assessment and plan (1) ESRD (end stage renal disease) Current Visit: Yes Status: Acute Assessment and plan: Patient undergoing dialysis (2) Liver cirrhosis secondary to nonalcoholic steatohepatitis (HENRIQUEZ) Current Visit: No Status: Chronic Assessment and plan: Chronic and stable (3) Recurrent left pleural effusion Current Visit: No Status: Chronic Assessment and plan: Patient platelets too low to be subjected to thoracentesis appears to have therapeutic benefit from dialysis (4) Diabetes mellitus type 2 in obese Current Visit: No Status: Chronic Assessment and plan: Chronic we will continue sliding scale (5) Hypertension Current Visit: No Status: Chronic Assessment and plan: Chronic and well controlled Qualifiers: Hypertension type: essential hypertension Qualified Code(s): I10 - Essential (primary) hypertension (6) Cirrhosis of liver with ascites Current Visit: No Status: Acute Assessment and plan: Chronic and stable Qualifiers: Hepatic cirrhosis type: unspecified hepatic cirrhosis Qualified Code(s): K74.60 - Unspecified cirrhosis of liver (7) Pancytopenia Current Visit: Yes Status: Acute Assessment and plan: Hematology is following plan on possiblebone marrow biopsy (8) Fracture, clavicle closed, shaft Current Visit: Yes Status: Acute Assessment and plan: No surgical intervention at this point orthopedic is following Qualifiers: Encounter type: initial encounter Fracture alignment: nondisplaced Laterality: right Qualified Code(s): S42.024A - Nondisplaced fracture of shaft of right clavicle, initial encounter for closed fracture (9) T12 compression fracture Current Visit: Yes Status: Acute Assessment and plan: No surgical intervention at this point - Time Spent With Patient Total time spent is greater than 50% in coordination of care (as documented) at patient's floor/unit and/or counseling patient: - Subjective Interval history: Patient with history of Henriquez, N0 disease, pancytopenia, diabetes, hypertension, liver cirrhosis and hypertension patient was admitted following a fall sustained T12 compression fracture also had L 1 fracture and the right clavicle fracture being followed by orthopedic surgery no surgical intervention also being followed by hematology oncology for pancytopenia and the plan is for possible bone marrow biopsy patient clinically says she feels much better and was asking if she can go home but not stable enough yet to be discharged she says shortness of breath is better and overall she is much better - Constitutional Vitals: Temp Pulse Resp BP Pulse Ox 98.1 F 116 16 113/57 90 12/24/17 11:10 12/24/17 11:10 12/24/17 11:10 12/24/17 11:10 12/24/17 11:10 - Eye Eye exam: Present: PERRL, conjuntiva pink, sclera anicteric Pupils: Present: PERRL - Neck Neck exam general surgery: Present: supple, trachea midline. Absent: lymphadenopathy - Respiratory Respiratory exam: Present: decreased breath sounds, rhonchi - Cardiovascular Cardiovascular exam: Present: RRR, +S1, +S2. Absent: diastolic murmur, gallop, rubs, systolic murmur - GI/Abdominal GI/Abdominal exam: Present: normal bowel sounds, soft, no peritoneal signs. Absent: distended, tenderness Internal Medicine: Result - Labs CBC & Chem 7: 12/24/17 06:36 12/24/17 06:36 Labs: Short CBC 12/24/17 Range/Units 06:36 WBC 1.5 L (4.3-11.1) K/mcL Hgb 7.9 L (11.5-15.4) g/dL Hct 23.5 L (35.3-44.9) % Plt Count 16 L* (140-400) K/mcL Neutrophils # 0.9 L (1.6-8.9) K/mcL BMP 12/24/17 06:36 Sodium 138 Potassium 4.1 Chloride 102 Carbon Dioxide 27 BUN 47 H Creatinine 4.78 H Glucose 120 H Calcium 8.4 L - ABG Interpretation ABG results: PT/INR, D-dimer PT 15.0 Seconds (9.4-12.1) H 12/22/17 20:26 Consult Discharge Plan - Plan Referrals: Rashawn Michaels MD [Primary Care Provider] -
--- NOTE | 2017-12-24 14:29 | Electrocardiograph Report ---
[address] [address] Test Date: 2017-12-22 Pat Name: Jeanette Shaffer Department: 104 Room: 2A Gender: F [employer] Director: SAY : 1945 Requested By: Rahel Carpenter Order Number: [id number] Reading MD: Simran Panchal Measurements Intervals [employer] Rate: 59 P: 59 AL: 181 QRS: -15 QRSD: 98 T: 53 QT: 463 QTc: 463 Interpretive Statements SINUS BRADYCARDIA Electronically Signed On 12-24-2017 14:27:53 EDT by Simran Panchal
[2017-12-24] MEDS: *HR* OxyCODONE Immed Rel 5 MG TABLET PO PRN (17:05)
[2017-12-25 06:30] LABS: Hematocrit 23.5 % (35.3-44.9); Hemoglobin 7.8 g/dL (11.5-15.4); Mean Corpuscular HGB Conc 33.2 g/dL (31.6-35.5); Mean Corpuscular Hemoglobin 33.6 pg (28.0-33.3); Mean Corpuscular Volume 101.3 fL (83.0-100.0); Mean Platelet Volume 13.5 fL (9.4-12.4); Red Blood Count 2.32 M/mcL (3.82-4.97); Red Cell Distribution Width 17.3 % (11.5-14.5)
[2017-12-25 06:31] LABS: Platelet Count 11 K/mcL (140-400)
[2017-12-25 06:46] LABS: Calcium 8.5 mg/dL (8.6-10.3); Potassium 3.4 mEq/L (3.5-5.1)
[2017-12-25] MEDS: Budesonide/Formoterol 160/4.5 MDI IH SCH ×2 (07:50→20:17)
[2017-12-25] MEDS: Cholecalciferol (D-3) 1,000 UNIT TABLET PO SCH (08:06)
[2017-12-25] MEDS: amLODIPine 5 MG TABLET PO SCH (08:06)
[2017-12-25] MEDS: Furosemide 40 MG TABLET PO SCH (08:06)
[2017-12-25] MEDS: Calcium Acetate 667 MG CAPSULE PO SCH ×3 (08:06→16:24)
[2017-12-25] MEDS: Folic Acid 1 MG TABLET PO SCH (08:06)
[2017-12-25] MEDS: Insulin LISPRO 300 UNITS/3 ML VIAL SQ SCH ×4 (08:09→21:28)
--- NOTE | 2017-12-25 09:00 | Nephrology Progress Note ---
Date of Encounter: 12/25/17 Time of Encounter: 08:58 - Assessment and Plan (1) ESRD (end stage renal disease) on dialysis Current Visit: Yes Status: Acute Plan for HD tomorrow Continue renal diet and strict I/Os Avoid nephrotoxins if possible (2) Anemia Current Visit: Yes Status: Acute Hgb 7.8 Trending down from 9.1 on 12/22 Goal hgb 10-11 Will add Aranesp 100mcg sq once a week Qualifiers: Anemia type: due to chronic kidney disease Chronic kidney disease stage: on chronic dialysis Qualified Code(s): N18.6 - End stage renal disease; D63.1 - Anemia in chronic kidney disease; Z99.2 - Dependence on renal dialysis (3) Fracture, clavicle closed, shaft Current Visit: Yes Status: Acute per orthopedic team Qualifiers: Encounter type: initial encounter Fracture alignment: nondisplaced Laterality: right Qualified Code(s): S42.024A - Nondisplaced fracture of shaft of right clavicle, initial encounter for closed fracture (4) Thrombocytopenia Current Visit: No Status: Chronic per oncology team Subjective Principal diagnosis: Chronic dialysis Interval history: Patient seen and examined. States she is in some pain from her injuries but is smiling and pleasant. Objective - Vital Signs Vital signs: Vital Signs Temp Pulse Resp BP Pulse Ox 12/25/17 07:52 18 88 12/25/17 07:04 99.2 F 57 18 128/58 91 12/25/17 03:25 98.6 F 57 16 108/61 96 12/24/17 23:31 99.4 F 58 16 118/75 94 12/24/17 22:22 16 88 12/24/17 19:41 98.9 F 66 16 105/53 92 12/24/17 16:50 98.3 F 18 118/54 12/24/17 16:25 123/58 12/24/17 16:10 120/52 12/24/17 15:55 119/55 12/24/17 15:40 121/65 12/24/17 15:25 116/53 12/24/17 15:10 120/56 12/24/17 14:55 118/55 12/24/17 14:40 111/55 12/24/17 14:25 115/57 12/24/17 14:10 119/54 12/24/17 13:55 118/53 12/24/17 13:40 128/63 12/24/17 13:25 127/58 12/24/17 13:10 120/63 12/24/17 12:55 98.0 F 18 127/59 12/24/17 11:10 98.1 F 116 16 113/57 90 Intake and Output 12/24/17 12/25/17 12/25/17 23:59 07:59 15:59 Intake Total 0 / 0 120 / 120 Output Total 2800 / 2800 100 / 100 Balance -2800 / -2800 -100 / -100 120 / 120 Intake: Oral 0 / 0 120 / 120 Output: Urine 200 / 200 100 / 100 Total Dialysis (HD) Output 2600 / 2600 Other: Meal Breakfast Percent of Meal Consumed 100% Weight 79.3 kg Blood Glucose* 156 129 Hemodialysis Net Fluid Removed 2000 (mL) Patient Weight 12/25/17 23:59 Weight 79.3 kg - General Appearance General appearance: Present: well-developed, well-nourished EENT: Present: ATNC, mucous membranes moist, hearing intact, vision intact Neck: Present: supple Respiratory: Present: clear Cardiology: Present: no edema, normal S1, normal S2 Gastrointestinal: Present: no tenderness, no guarding Integumentary: Present: warm and dry Neurologic: Present: alert and oriented x3 Psychiatric: Present: mood/affect appropriate, cooperative - Lab 12/25/17 05:37 12/25/17 05:37 Most recent lab results Calcium 8.5 mg/dL (8.6-10.3) L 12/25/17 05:37 Phosphorus 7.3 mg/dL (2.7-4.5) H 12/23/17 06:11 Magnesium 2.1 mg/dL (1.6-2.6) 12/23/17 06:11 Consult Discharge Plan - Plan Referrals: Rashawn Michaels MD [Primary Care Provider] -
[2017-12-25] MEDS: *HR* OxyCODONE Immed Rel 5 MG TABLET PO PRN (11:43)
[2017-12-25] MEDS: Darbepoetin 100 MCG/0.5 ML SYRINGE SQ SCH (11:43)
--- NOTE | 2017-12-25 15:50 | Oncology Inp Progress Note ---
<Aliza Benito - Last Filed: 12/25/17 16:03> Date of Encounter: 12/25/17 Time of Encounter: 14:30 (1) Pancytopenia Current Visit: Yes Status: Acute Assessment and plan: Chronic however, has acutely worsened, most likely secondary to hepatic cirrhosis due to HENRIQUEZ with features of portal hypertension and splenomegaly as noted on CT abdomen/pelvis from 10/31/17. She has had previous hematological workup. States she had a bone marrow biopsy at [place] within the past 1-2 years , will obtain records. AFP 2 on 11/02/17 Macrocytosis noted on admission-will recheck nutritional stores. May consider further BMB as outpatient if pancytopenia continues to worsen or does not improve. She will have a follow up arranged with Dr. De Jesus at discharge. Discussed platelet transfusion with Dr. Bass- will re-assess platelet count in AM and recommend platelet transfusion is platelets have not improved or have worsened. NO clinical evidence of bleeding, continue to monitor. Reviwed nephrology's note- She is planned for HD tomorrow, adding Aranesp weekly Oncology: Subj Interval history: Ms. Shaffer is resting comfortably in bed. She continues to report pain from her fall and fractures, manageable with pain medication. She is asking about support services for home, states she lives with her sister and her granddaughter is moving in for assistance following her discharge. Discussed with social research assistant who are following patients case, awaiting clearance from Dr. Garcia for PT/OT consults for d/c needs. - Constitutional Vitals: Vital Signs Temp Pulse Resp BP Pulse Ox 12/25/17 15:33 98.4 F 54 19 107/59 100 12/25/17 10:28 98.3 F 57 18 110/65 91 12/25/17 07:52 18 88 12/25/17 07:04 99.2 F 57 18 128/58 91 12/25/17 03:25 98.6 F 57 16 108/61 96 12/24/17 23:31 99.4 F 58 16 118/75 94 12/24/17 22:22 16 88 12/24/17 19:41 98.9 F 66 16 105/53 92 12/24/17 16:50 98.3 F 18 118/54 12/24/17 16:25 123/58 12/24/17 16:10 120/52 05/21/18 15:55 119/55 Intake and Output 12/24/17 12/25/17 12/25/17 23:59 07:59 15:59 Intake Total 0 / 0 360 / 360 Output Total 2800 / 2800 100 / 100 100 / 100 Balance -2800 / -2800 -100 / -100 260 / 260 Intake: Oral 0 / 0 360 / 360 Output: Urine 200 / 200 100 / 100 100 / 100 Total Dialysis (HD) Output 2600 / 2600 Other: Meal Lunch Percent of Meal Consumed 25% Weight 79.3 kg 79.3 kg Blood Glucose* 156 129 214 Hemodialysis Net Fluid Removed 2000 (mL) Patient Weight 12/25/17 23:59 Weight 79.3 kg General appearance: cooperative, no acute distress, no febrile - Respiratory Respiratory exam: Present: CTAB. Absent: respiratory distress - Cardiovascular Cardiovascular exam: Present: RRR, +S1, +S2 - Extremities Exam Extremities exam: Present: normal inspection. Absent: calf tenderness - Neurological Exam Neurological exam: Present: alert, oriented X3, no focal deficits, strengths equal and symetr throughout - Psychiatric Psychiatric exam: Present: normal affect, normal mood - Skin Skin exam: Present: dry, intact, normal color, warm Oncology: Obj Data - Labs CBC & Chem 7: 12/25/17 05:37 12/25/17 05:37 - ABG Interpretation ABG results: PT/INR, D-dimer PT 15.0 Seconds (9.4-12.1) H 12/22/17 20:26 Consult Discharge Plan - Plan Referrals: Rashawn Michaels MD [Primary Care Provider] - <Aleja Casiano - Last Filed: 12/26/17 08:29> Date of Encounter: 12/26/17 Oncology: Subj Interval history: I examined this patient and my medical decision-making was reviewed with the Advanced Practice Nurse, Aliza Benito. I agree with the documented findings, disposition and treatment plan as described except to the extent set forth below. - Constitutional Vitals: Vital Signs Temp Pulse Resp BP Pulse Ox 12/26/17 07:47 16 95 12/26/17 07:21 99.4 F 69 21 93/43 92 12/26/17 04:10 102.4 F H 88 18 121/64 90 12/26/17 00:22 99.5 F 74 16 130/70 95 12/25/17 21:36 94 12/25/17 20:17 16 94 12/25/17 19:13 99.1 F 57 17 141/79 92 12/25/17 15:33 98.4 F 54 19 107/59 100 12/25/17 10:28 98.3 F 57 18 110/65 91 Intake and Output 12/25/17 12/26/17 12/26/17 23:59 07:59 15:59 Output Total 300 / 300 Balance -300 / -300 Output: Urine 300 / 300 Other: Blood Glucose* 142 165 Oncology: Obj Data - Labs CBC & Chem 7: 12/26/17 05:54 12/26/17 05:54 Labs: Laboratory Results - last 24 hr 12/25/17 12/25/17 12/25/17 07:02 11:19 16:07 WBC RBC Hgb Hct MCV MCH MCHC RDW Plt Count MPV Immature Plt Fraction Sodium Potassium Chloride Carbon Dioxide BUN Creatinine Est GFR ( Amer) Est GFR (Non-Af Amer) BUN/Creatinine Ratio Glucose POC Glucose 129 H 214 H 144 H Calculated Osmolality Calcium Iron % Saturation Transferrin Ferritin Vitamin B12 Folate 12/26/17 12/26/17 12/26/17 05:54 05:54 05:54 WBC 2.7 L D RBC 2.31 L Hgb 8.1 L Hct 23.4 L MCV 101.3 H MCH 35.1 H MCHC 34.6 RDW 17.6 H Plt Count 21 L* D MPV 12.2 Immature Plt Fraction 4.9 Sodium Potassium Chloride Carbon Dioxide BUN Creatinine Est GFR ( Amer) Est GFR (Non-Af Amer) BUN/Creatinine Ratio Glucose POC Glucose Calculated Osmolality Calcium Iron 32 L % Saturation 12 L Transferrin 191 L Ferritin 237 H Vitamin B12 1151 H Folate > 22.3 H 12/26/17 05:54 WBC RBC Hgb Hct MCV MCH MCHC RDW Plt Count MPV Immature Plt Fraction Sodium 136 Potassium 3.5 Chloride 101 Carbon Dioxide 22 L BUN 43 H Creatinine 4.16 H Est GFR ( Amer) 13 L Est GFR (Non-Af Amer) 11 L BUN/Creatinine Ratio 10 Glucose 160 H POC Glucose Calculated Osmolality 296 Calcium 8.6 Iron % Saturation Transferrin Ferritin Vitamin B12 Folate - ABG Interpretation ABG results: PT/INR, D-dimer PT 15.0 Seconds (9.4-12.1) H 12/22/17 20:26
--- NOTE | 2017-12-25 17:51 | Internal Med Progress Note ---
Date of Encounter: 12/25/17 Time of Encounter: 11:00 - Assessment and plan (1) T12 compression fracture Current Visit: Yes Status: Acute Assessment and plan: CT of thoracic spine showed mild superior endplate compression fracture of T12 appears acute. Orthopedic spine specialists consulted and appreciate recommendations (2) Fracture, clavicle closed, shaft Current Visit: Yes Status: Acute Assessment and plan: Imaging showed comminuted fracture sternal end right clavicle Orthopedics with recommendations for medical management without any surgical intervention at this time. Qualifiers: Encounter type: initial encounter Fracture alignment: nondisplaced Laterality: right Qualified Code(s): S42.024A - Nondisplaced fracture of shaft of right clavicle, initial encounter for closed fracture (3) Pancytopenia Current Visit: Yes Status: Acute Assessment and plan: Hematology/oncology following with recommendations for bone marrow biopsy as an outpatient Platelets monitored for potential transfusion (4) Hypertension Current Visit: No Status: Chronic Assessment and plan: Continue home medications Qualifiers: Hypertension type: essential hypertension Qualified Code(s): I10 - Essential (primary) hypertension (5) ESRD (end stage renal disease) Current Visit: Yes Status: Chronic Assessment and plan: Nephrology following with recommendations for hemodialysis on Sunday and Sunday (6) Hypoxemia Current Visit: Yes Status: Acute (7) Diabetes mellitus Current Visit: Yes Status: Acute Qualifiers: Diabetes mellitus type: type 2 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 - Time Spent With Patient Total time spent is greater than 50% in coordination of care (as documented) at patient's floor/unit and/or counseling patient: - Subjective Interval history: Patient found to have a clavicle fracture in addition to T12 compression fracture status post fall Awaiting consult from orthopedic spine for recommendations Will hold off on physical therapy evaluation until evaluated by orthopedic spine - Constitutional Vitals: Temp Pulse Resp BP Pulse Ox 98.4 F 54 19 107/59 100 12/25/17 15:33 12/25/17 15:33 12/25/17 15:33 12/25/17 15:33 12/25/17 15:33 General appearance: Present: no acute distress - Cardiovascular Cardiovascular exam: Present: RRR, +S1, +S2. Absent: diastolic murmur, gallop, rubs, systolic murmur - GI/Abdominal GI/Abdominal exam: Present: normal bowel sounds, soft, no peritoneal signs. Absent: distended, tenderness Internal Medicine: Result - Labs CBC & Chem 7: 12/25/17 05:37 12/25/17 05:37 Labs: Short CBC 12/25/17 Range/Units 05:37 WBC 1.5 L (4.3-11.1) K/mcL Hgb 7.8 L (11.5-15.4) g/dL Hct 23.5 L (35.3-44.9) % Plt Count 11 L* (140-400) K/mcL BMP 12/25/17 05:37 Sodium 137 Potassium 3.4 L Chloride 103 Carbon Dioxide 26 BUN 26 H Creatinine 2.93 H Glucose 136 H Calcium 8.5 L - ABG Interpretation ABG results: PT/INR, D-dimer PT 15.0 Seconds (9.4-12.1) H 12/22/17 20:26 Consult Discharge Plan - Plan Referrals: Rashawn Michaels MD [Primary Care Provider] -
[2017-12-26] MEDS ORDERED: Acetaminophen 325 MG TABLET PO PRN (04:36)
[2017-12-26 06:18] LABS: Hemoglobin 8.1 g/dL (11.5-15.4)
[2017-12-26 06:20] LABS: Hematocrit 23.4 % (35.3-44.9); Immature Platelets 4.9 % (1.1-6.1); Mean Corpuscular HGB Conc 34.6 g/dL (31.6-35.5); Mean Corpuscular Hemoglobin 35.1 pg (28.0-33.3); Mean Corpuscular Volume 101.3 fL (83.0-100.0); Mean Platelet Volume 12.2 fL (9.4-12.4); Red Blood Count 2.31 M/mcL (3.82-4.97); Red Cell Distribution Width 17.6 % (11.5-14.5)
[2017-12-26 06:34] LABS: % Iron Saturation 12 % (15-50); Ferritin 237 ng/ml (10-120); Iron 32 mcg/dL (50-170); Transferrin 191 mg/dL (203-362)
[2017-12-26 06:37] LABS: Calcium 8.6 mg/dL (8.6-10.3); Potassium 3.5 mEq/L (3.5-5.1)
[2017-12-26 07:01] LABS: Vitamin B12 1151 pg/mL (250-1100)
[2017-12-26] MEDS ORDERED: 0.9 % Sodium Chloride 250 ML IVC PRN (07:04)
[2017-12-26 07:08] LABS: Folate > 22.3 ng/mL (3.0-16.0)
[2017-12-26] MEDS: Budesonide/Formoterol 160/4.5 MDI IH SCH ×2 (07:44→20:54)
[2017-12-26] MEDS: Calcium Acetate 667 MG CAPSULE PO SCH ×4 (09:02→16:57)
[2017-12-26] MEDS: Cholecalciferol (D-3) 1,000 UNIT TABLET PO SCH (09:02)
[2017-12-26] MEDS: Folic Acid 1 MG TABLET PO SCH (09:02)
[2017-12-26] MEDS: amLODIPine 5 MG TABLET PO SCH (09:03)
[2017-12-26] MEDS: Insulin LISPRO 300 UNITS/3 ML VIAL SQ SCH ×3 (09:05→16:57)
[2017-12-26] MEDS: Furosemide 40 MG TABLET PO SCH (09:09)
--- NOTE | 2017-12-26 10:31 | Nephrology Progress Note ---
Date of Encounter: 12/26/17 Time of Encounter: 09:00 - Assessment and Plan (1) ESRD (end stage renal disease) Current Visit: Yes Status: Chronic I've arranged for dialysis today, during which I've ordered no heparin d/t her thrombocytopenia. She was more sedate today: will defer this to the primary team. Be sure to dose medications by GFR. (2) Fracture, clavicle closed, shaft Current Visit: Yes Status: Acute As per primary. Would recommend avoiding NSAIDs since she still has residual renal function worth protecting. Qualifiers: Encounter type: initial encounter Fracture alignment: nondisplaced Laterality: right Qualified Code(s): S42.024A - Nondisplaced fracture of shaft of right clavicle, initial encounter for closed fracture (3) Hypoxemia Current Visit: Yes Status: Acute As per primary. (4) COPD (chronic obstructive pulmonary disease) Current Visit: No Status: Chronic As per primary Qualifiers: COPD type: unspecified COPD Qualified Code(s): J44.9 - Chronic obstructive pulmonary disease, unspecified (5) Recurrent left pleural effusion Current Visit: No Status: Chronic (6) Thrombocytopenia Current Visit: No Status: Chronic I read Hematology's notes Subjective Principal diagnosis: Chronic dialysis Interval history: Pt was seen/examined earlier today on the 2A unit. Her floor RN was present and the pt has been more sleepy today, she reported. The pt did not affirm N/V/D was not less able to provide a coherent history. Objective - Vital Signs Vital signs: Vital Signs Temp Pulse Resp BP Pulse Ox 12/26/17 07:47 16 95 12/26/17 07:21 99.4 F 69 21 93/43 92 12/26/17 04:10 102.4 F H 88 18 121/64 90 12/26/17 00:22 99.5 F 74 16 130/70 95 12/25/17 21:36 94 12/25/17 20:17 16 94 12/25/17 19:13 99.1 F 57 17 141/79 92 12/25/17 15:33 98.4 F 54 19 107/59 100 12/25/17 10:28 98.3 F 57 18 110/65 91 Intake and Output 12/25/17 12/26/17 12/26/17 23:59 07:59 15:59 Intake Total 120 / 120 Output Total 300 / 300 0 / 0 Balance -300 / -300 120 / 120 Intake: Oral 120 / 120 Output: Urine 300 / 300 0 / 0 Other: Blood Glucose* 142 165 - General Appearance General appearance: Present: well-developed, well-nourished, appears started age , obese, frail EENT: Present: ATNC, PERRL, mucous membranes moist Neck: Present: supple Respiratory: Present: clear Cardiology: Present: no edema, regular rate, regular rhythm, normal S1, normal S2 Dialysis Vascular Access: Venous Catheter (Permacath was C/D/I) Gastrointestinal: Present: normoactive bowel sounds, no tenderness Integumentary: Present: warm and dry Neurologic: Present: no asterixis, disoriented Musculoskeletal: Present: no erythema, no cyanosis, no clubbing Psychiatric: Present: mood/affect appropriate, cooperative - Lab 12/26/17 05:54 12/26/17 05:54 Most recent lab results Calcium 8.6 mg/dL (8.6-10.3) 12/26/17 05:54 Phosphorus 7.3 mg/dL (2.7-4.5) H 12/23/17 06:11 Magnesium 2.1 mg/dL (1.6-2.6) 12/23/17 06:11 Consult Discharge Plan - Plan Referrals: Rashawn Michaels MD [Primary Care Provider] -
--- NOTE | 2017-12-26 10:46 | Spinal Consult Note ---
Date of Encounter: 12/26/17 Time of Encounter: 10:43 Assessment and Plan (1) Closed compression fracture of L1 lumbar vertebral body Current Visit: Yes Status: Acute She is awake and alert but confused and not answering all questions appropriately. Afebrile vital signs stable. She fires upper and lower extremity motor groups with good strength within the limits of her comprehension /understanding as she is not following commands well. She has no clonus. She has mild tenderness to palpation posteriorly in the upper lumbar vertebrae. Her hips move symmetrically. CT scan of the thoracic and lumbar spine reveals an overall osteopenic appearance of the bones. There is a superior endplate vertebral compression fracture at L1 with approximately 5% loss of height. There is no significant retropulsion of fragments into the canal. Impression: 1) osteopenia 2) vertebral compression fracture L1 Plan: Patient states her pain is reasonably controlled on analgesics. I do not think she would be a good candidate for brace compliance so it is reasonable to continue analgesics alone and mobilization as tolerated. She does not require surgical intervention in the form of vertebral augmentation or kyphoplasty. She is likely going to need rehabilitation placement. If she has not had a DEXA scan she should consider this on an outpatient basis and be placed on osteopathic protective agents such as bisphosphonates, calcium, vitamin D supplementation etc. to lessen the risk of future fragility fractures. (2) Osteopenia Current Visit: Yes Status: Chronic Qualifiers: Osteopenia location: spine Qualified Code(s): M85.88 - Other specified disorders of bone density and structure, other site History of Present Illness Chief complaint: Back pain HPI: Ms. Shaffer is a 72 year old female Who sustained a fall and complained of back pain as well as shoulder pain. She had workup which included CT scans of the thoracic and lumbar spine and an acute L1 fracture was determined. She was admitted for management of her injuries and pain control. She is a poor historian and is confused and mildly somnolent. She does deny significant pain as long as she takes analgesic medications. She has a sling provided for her clavicle fracture which she is not currently wearing. She denies any fevers or chills or radicular symptoms. Past Med Surg Social Fam HX - Past Medical History Medical history: asthma, cirrhosis, diabetes, hypertension, other Psychiatric history: no psych history - Past Surgical History Surgical History: hysterectomy, orthopedic, other - Social History Smoking Status: Never smoker Smokeless Tobacco Status: No Alcohol use: none Drug use: none - Family History Mother Living Status: Hx Family Cardiac Disorders: Yes Hx Family Neuromuscular Disorders: Yes (Stroke) Father Adopted: No Family Member Ethnicity: Non- Living Status: Cause of : PR Hx Family Cardiac Disorders: Yes Hx Family Respiratory Disorders: No Hx Family Cancer: Yes Hx Family GI Disorders: No Hx Family Endocrine Disorder: Yes Hx Family Neuromuscular Disorders: No Hx Family Neurologic Disorders: No Hx Family HEENT Disorders: No Hx Family Autoimmune Disorders: No Medications and Allergies Cholecalciferol (D-3) 5,000 unit PO BID 30 Days tablet 06/18/15 [Rx] Allopurinol [Zyloprim 100 MG] 200 mg PO DAILY 08/06/17 [History] Atorvastatin [Lipitor] 10 mg PO HS 08/06/17 [History] Citalopram Hydrobromide [Citalopram HBr] 40 mg PO DAILY 08/06/17 [History] Cyanocobalamin (B-12) [Vitamin B12] 1,000 mcg IM QMONTH 08/06/17 [History] Folic Acid 1 mg PO DAILY 08/06/17 [History] Insulin ASPART [Novolog] 12 unit SQ QPM 10/31/17 [History] Insulin ASPART [Novolog] 22 unit SQ QAM 10/31/17 [History] Propranolol [Inderal] 20 mg PO BID #10 tablet 11/21/17 [Rx] amLODIPine [Norvasc] 5 mg PO DAILY 5 Days #5 tablet 11/21/17 [Rx] Calcium Acetate [Phos-LO] 667 mg PO DAILY 12/23/17 [History] Fluticasone/Vilanterol [Breo Ellipta 100-25 Mcg INH] 1 puff IH DAILY 12/23/17 [ History] 3 Allergy/AdvReac Type Severity Reaction Status Date / Time No Known Drug Allergies Allergy See Verified 10/31/17 08:46 Comments Results - Labs Result Diagrams: 12/26/17 05:54 12/26/17 05:54 Labs: Abnormal lab results WBC 2.7 K/mcL (4.3-11.1) L D 12/26/17 05:54 RBC 2.31 M/mcL (3.82-4.97) L 12/26/17 05:54 Hgb 8.1 g/dL (11.5-15.4) L 12/26/17 05:54 Hct 23.4 % (35.3-44.9) L 12/26/17 05:54 MCV 101.3 fL (83.0-100.0) H 12/26/17 05:54 MCH 35.1 pg (28.0-33.3) H 12/26/17 05:54 RDW 17.6 % (11.5-14.5) H 12/26/17 05:54 Plt Count 21 K/mcL (140-400) L* D 12/26/17 05:54 Neutrophils # 0.9 K/mcL (1.6-8.9) L 12/24/17 06:36 Lymphocytes # 0.4 K/mcL (0.6-4.6) L 12/24/17 06:36 Nucleated RBCs/100 WBC 1.4 /100 WBC (0) H 12/24/17 06:36 Platelet Estimate Decreased (Normal) L 12/24/17 06:36 Polychromasia 1+ (Not Present) A 12/24/17 06:36 Hypochromasia Present (Not Present) A 12/22/17 18:26 Anisocytosis 1+ (Not Present) A 12/24/17 06:36 Macrocytosis Present (Not Present) A 12/24/17 06:36 PT 15.0 Seconds (9.4-12.1) H 12/22/17 20:26 Carbon Dioxide 22 mEq/L (23-29) L 12/26/17 05:54 BUN 43 mg/dL (8-23) H 12/26/17 05:54 Creatinine 4.16 mg/dL (0.60-1.20) H 12/26/17 05:54 Est GFR ( Amer) 13 (> 60) L 12/26/17 05:54 Est GFR (Non-Af Amer) 11 (> 60) L 12/26/17 05:54 Glucose 160 mg/dL (70-105) H 12/26/17 05:54 POC Glucose 165 mg/dL (70-99) H 12/26/17 08:26 Phosphorus 7.3 mg/dL (2.7-4.5) H 12/23/17 06:11 Iron 32 mcg/dL (50-170) L 12/26/17 05:54 % Saturation 12 % (15-50) L 12/26/17 05:54 Transferrin 191 mg/dL (203-362) L 12/26/17 05:54 Ferritin 237 ng/ml (10-120) H 12/26/17 05:54 B-Natriuretic Peptide 347 pg/mL (Less than 100) H 12/22/17 18:26 Vitamin B12 1151 pg/mL (250-1100) H 12/26/17 05:54 Folate > 22.3 ng/mL (3.0-16.0) H 12/26/17 05:54 H & H 12/26/17 Range/Units 05:54 Hgb 8.1 L (11.5-15.4) g/dL Hct 23.4 L (35.3-44.9) % All other labs normal. Consult Discharge Plan - Plan Referrals: Rashawn Michaels MD [Primary Care Provider] -
--- NOTE | 2017-12-26 19:20 | Internal Med Progress Note ---
Date of Encounter: 12/26/17 Time of Encounter: 11:00 - Assessment and plan (1) T12 compression fracture Current Visit: Yes Status: Acute Assessment and plan: CT of thoracic spine showed mild superior endplate compression fracture of T12 appears acute. Orthopedic spine specialists consulted with recommendations for medical management Physical therapy consulted for evaluation for nursing facility placement (2) Fracture, clavicle closed, shaft Current Visit: Yes Status: Acute Assessment and plan: Imaging showed comminuted fracture sternal end right clavicle Orthopedics with recommendations for medical management without any surgical intervention at this time. Qualifiers: Encounter type: initial encounter Fracture alignment: nondisplaced Laterality: right Qualified Code(s): S42.024A - Nondisplaced fracture of shaft of right clavicle, initial encounter for closed fracture (3) Pancytopenia Current Visit: Yes Status: Acute Assessment and plan: Hematology/oncology following with recommendations for bone marrow biopsy as an outpatient Platelets monitored for potential transfusion (4) Hypertension Current Visit: No Status: Chronic Assessment and plan: Continue home medications Qualifiers: Hypertension type: essential hypertension Qualified Code(s): I10 - Essential (primary) hypertension (5) ESRD (end stage renal disease) Current Visit: Yes Status: Chronic Assessment and plan: Nephrology following with recommendations for hemodialysis on Sunday and Sunday (6) Diabetes mellitus Current Visit: Yes Status: Acute Assessment and plan: Will put the patient on insulin sliding scale. Accuchecks. Qualifiers: Diabetes mellitus type: type 2 Diabetes mellitus halfway insulin use: without exterminator termite use Diabetes mellitus complication status: with kidney complications Diabetes mellitus complication detail: with other kidney complication Qualified Code(s): E11.29 - Type 2 diabetes mellitus with other diabetic kidney complication (7) DVT prophylaxis Current Visit: No Status: Acute Assessment and plan: scds due to low platelets. - Time Spent With Patient Total time spent is greater than 50% in coordination of care (as documented) at patient's floor/unit and/or counseling patient: - Subjective Interval history: Patient found to have a clavicle fracture in addition to T12 compression fracture status post fall Awaiting physical therapy evaluation for care home facility placement - Constitutional Vitals: Temp Pulse Resp BP Pulse Ox 103.1 F H 74 20 114/62 94 12/26/17 16:09 12/26/17 16:09 12/26/17 16:09 12/26/17 16:09 12/26/17 16:09 General appearance: Present: no acute distress - Respiratory Respiratory exam: Present: CTAB. Absent: accessory muscle use, rales, rhonchi, wheezes - Cardiovascular Cardiovascular exam: Present: RRR, +S1, +S2. Absent: diastolic murmur, gallop, rubs, systolic murmur Internal Medicine: Result - Labs CBC & Chem 7: 12/26/17 05:54 12/26/17 05:54 Labs: Short CBC 12/26/17 Range/Units 05:54 WBC 2.7 L D (4.3-11.1) K/mcL Hgb 8.1 L (11.5-15.4) g/dL Hct 23.4 L (35.3-44.9) % Plt Count 21 L* D (140-400) K/mcL BMP 12/26/17 05:54 Sodium 136 Potassium 3.5 Chloride 101 Carbon Dioxide 22 L BUN 43 H Creatinine 4.16 H Glucose 160 H Calcium 8.6 - ABG Interpretation ABG results: PT/INR, D-dimer PT 15.0 Seconds (9.4-12.1) H 12/22/17 20:26 - Impressions Impressions Head CT 12/26/17 09:10 IMPRESSION: No acute intracranial abnormality. Periventricular and subcortical white matter low attenuation compatible with chronic microvascular ischemic changes. D/ / Violeta Hernandez MD / Violeta Hernandez MD Interpreting Provider: Violeta Hernandez MD Consult Discharge Plan - Plan Referrals: Rashawn Michaels MD [Primary Care Provider] -
[2017-12-26] MEDS ORDERED: 0.9 % Sodium Chloride 1,000 ML IVC SCH (21:00)
[2017-12-26] MEDS: Acetaminophen 650 MG RECTAL SUPP RC PRN (21:21)
[2017-12-26] MEDS ORDERED: 0.9 % Sodium Chloride 1,000 ML IVC ONE ×2 (21:23→21:25)
[2017-12-26] MEDS: cefTRIAXone 2,000 MG in Water for inj. (sterile) 20 ML 20 ML IVP SCH (22:34)
[2017-12-26 22:45] LABS: Bilirubin,Urine Small (Negative); Blood,Urine Large (Negative); Clarity,Urine Cloudy (Clear); Glucose,Urine (UA) Normal (Normal); Ketones,Urine Negative (Negative); Leukocyte Esterase,Urine Small (Negative); Nitrite,Urine Negative (Negative); Protein,Urine 100 mg/dL (Neg-Trace); Specific Gravity,Urine 1.017 (1.010-1.025); Urobilinogen,Urine Normal (Normal)
[2017-12-26 22:47] LABS: Color,Urine Red (Yellow)
--- NOTE | 2017-12-26 22:57 | Event Note ---
Date of Encounter: 12/26/17 Time of Encounter: 21:00 Alerted by patient's nurse LIZ Haddad that pt. had a fever of 103.1F and was alerted. Went to see pt. who was lying in bed and mentation was below her baseline. Pt. is a dialysis pt. and received dialysis. Concern is for sepsis based on HR of 95, RR of 20, WBC of 2.7, and temp of 103.1F. Stat lactic acid ordered which came back as 2.3. Pt. was dialyzed by Dr. Valderrama so I had a curbside conversation w/Dr. Valderrama regarding her current status and my concern for sepsis. His recommendation based on her fairly new dialysis hx was to bolus per sepsis criteria and I appreciate the curbside and recommendations. Two 1L boluses ordered. Blood cultures x2 ordered. Tylenol 650 RC ordered for fever. Cooling blanket ordered. IVPB Rocephin 2,000 mg Q12HR ordered and discussed w/Pharmacy for renal dosing d/t pts. current renal dysfunction w/ recommendation that Rocephin regular dosing is appropriate. Bladder scans PRN and Alatorre catheter ordered d/t pts. incontinence to avoid skin breakdown. UA w/ reflex micro and culture ordered d/t current AMS. Will repeat lactic acid at 00: 00. Second peripheral IV ordered. Pt. to be monitored closely for signs of increasing infection, cardiac, and/or respiratory distress. Provider to be alerted of any decline or changes.
[2017-12-26 23:13] LABS: RBC,Urine TNTC per hpf (0-3); Squamous Epithelial Cell,Urine Moderate per lpf (None-Few); Transitional Epi Cells,Urine Few per hpf (None-Few)
[2017-12-26 23:14] LABS: Bacteria,Urine Few per hpf (None-Few)
[2017-12-27] MEDS: Insulin LISPRO 300 UNITS/3 ML VIAL SQ SCH ×5 (00:04→20:25)
[2017-12-27] MEDS ORDERED: 0.9 % Sodium Chloride 1,000 ML IVC SCH (00:45)
[2017-12-27 01:04] LABS: Hemoglobin 8.7 g/dL (11.5-15.4)
[2017-12-27 01:06] LABS: Hematocrit 25.9 % (35.3-44.9); Immature Platelets 5.6 % (1.1-6.1); Mean Corpuscular HGB Conc 33.6 g/dL (31.6-35.5); Mean Corpuscular Hemoglobin 34.9 pg (28.0-33.3); Mean Platelet Volume 11.3 fL (9.4-12.4); Red Blood Count 2.49 M/mcL (3.82-4.97); Red Cell Distribution Width 18.5 % (11.5-14.5)
[2017-12-27 01:28] LABS: Calcium 8.6 mg/dL (8.6-10.3); Potassium 3.4 mEq/L (3.5-5.1)
[2017-12-27] MEDS: Acetaminophen 650 MG RECTAL SUPP RC PRN (02:25)
[2017-12-27] MEDS: Budesonide/Formoterol 160/4.5 MDI IH SCH ×2 (07:39→20:25)
[2017-12-27] MEDS: Calcium Acetate 667 MG CAPSULE PO SCH ×3 (08:08→17:12)
[2017-12-27] MEDS: Folic Acid 1 MG TABLET PO SCH (08:09)
[2017-12-27] MEDS: Cholecalciferol (D-3) 1,000 UNIT TABLET PO SCH (08:09)
[2017-12-27] MEDS: amLODIPine 5 MG TABLET PO SCH (08:09)
[2017-12-27] MEDS: Furosemide 40 MG TABLET PO SCH (08:09)
--- NOTE | 2017-12-27 09:49 | Nephrology Progress Note ---
Date of Encounter: 12/27/17 Time of Encounter: 09:46 - Assessment and Plan (1) ESRD (end stage renal disease) on dialysis Current Visit: Yes Status: Acute Plan for HD tomorrow Continue renal diet and strict I/Os Avoid nephrotoxins if possible (2) Anemia Current Visit: Yes Status: Acute Hgb 8.7 Goal hgb 10-11 Continue Aranesp Qualifiers: Anemia type: due to chronic kidney disease Chronic kidney disease stage: on chronic dialysis Qualified Code(s): N18.6 - End stage renal disease; D63.1 - Anemia in chronic kidney disease; Z99.2 - Dependence on renal dialysis (3) Fracture, clavicle closed, shaft Current Visit: Yes Status: Acute per orthopedic team Qualifiers: Encounter type: initial encounter Fracture alignment: nondisplaced Laterality: right Qualified Code(s): S42.024A - Nondisplaced fracture of shaft of right clavicle, initial encounter for closed fracture (4) Thrombocytopenia Current Visit: No Status: Chronic per oncology team Subjective Principal diagnosis: Chronic dialysis Interval history: Patient seen and examined. Resting comfortably in bed, states she is feeling better Objective - Vital Signs Vital signs: Vital Signs Temp Pulse Resp BP Pulse Ox 12/27/17 08:54 101.2 F H 67 16 102/55 93 12/27/17 06:58 99.4 F 76 16 112/66 97 12/27/17 06:42 101.1 F H 89 15 119/67 95 12/27/17 05:22 101.4 F H 87 16 117/68 96 12/27/17 05:06 101.6 F H 78 16 117/68 96 12/27/17 04:45 101.7 F H 84 16 117/68 95 12/27/17 03:44 102.4 F H 83 16 105/49 95 12/27/17 03:08 102.8 F H 82 16 118/50 93 12/27/17 02:36 102.8 F H 88 16 118/50 93 12/27/17 01:28 102.7 F H 80 17 129/51 93 12/27/17 00:21 102.8 F H 86 16 142/91 90 12/26/17 22:59 103.5 F H 12/26/17 22:52 104.4 F H 12/26/17 21:45 97 12/26/17 20:42 103.1 F H 95 19 96/51 97 12/26/17 16:09 103.1 F H 74 20 114/62 94 12/26/17 14:20 97.5 F L 17 138/69 12/26/17 14:10 144/66 12/26/17 13:55 135/56 12/26/17 13:40 142/59 12/26/17 13:25 138/72 12/26/17 13:10 140/65 12/26/17 12:55 140/65 12/26/17 12:43 101.1 F H 83 20 123/50 93 12/26/17 12:40 146/66 12/26/17 12:25 133/57 12/26/17 12:10 125/64 12/26/17 11:55 131/54 12/26/17 11:40 130/44 12/26/17 11:25 119/45 12/26/17 11:10 129/56 12/26/17 10:55 131/61 12/26/17 10:40 101.1 F H 19 128/60 Intake and Output 12/26/17 12/27/17 12/27/17 23:59 07:59 15:59 Intake Total 270 / 270 30 / 30 Output Total 100 / 100 Balance 170 / 170 30 / 30 Intake: Oral 270 / 270 30 / 30 Output: Urine 0 / 0 Catheter 100 / 100 Urethral (Alatorre) 100 / 100 Other: Meal Dinner Percent of Meal Consumed 15% Stool Size Large Stool Consistency soft Stool Color Brown Pale # Urine Diapers 3 # Bowel Movements 1 Blood Glucose* 195 231 - General Appearance General appearance: Present: well-developed, well-nourished EENT: Present: ATNC, mucous membranes moist, hearing intact, vision intact Neck: Present: supple Respiratory: Present: clear Cardiology: Present: no edema, normal S1, normal S2 Dialysis Vascular Access: Venous Catheter Gastrointestinal: Present: no tenderness, no guarding Integumentary: Present: warm and dry Neurologic: Present: alert and oriented x3 Psychiatric: Present: mood/affect appropriate, cooperative - Lab 12/27/17 00:47 12/27/17 00:47 Most recent lab results Calcium 8.6 mg/dL (8.6-10.3) 12/27/17 00:47 Phosphorus 7.3 mg/dL (2.7-4.5) H 12/23/17 06:11 Magnesium 2.1 mg/dL (1.6-2.6) 12/23/17 06:11 Consult Discharge Plan - Plan Referrals: Rashawn Michaels MD [Primary Care Provider] -
[2017-12-27 10:41] LABS: Acinetobacter baumannii by PCR Not Detected (Not Detect); Candida albicans by PCR Not Detected (Not Detect); Candida glabrata by PCR Not Detected (Not Detect); Candida krusei by PCR Not Detected (Not Detect); Candida parapsilosis by PCR Not Detected (Not Detect); Candida tropicalis by PCR Not Detected (Not Detect); Enterococcus by PCR Not Detected (Not Detect); Escherichia coli by PCR Not Detected (Not Detect); Klebsiella oxytoca by PCR Not Detected (Not Detect); Klebsiella pneumoniae by PCR Not Detected (Not Detect); Pseudomonas aeruginosa by PCR Not Detected (Not Detect); Serratia marcescens by PCR Not Detected (Not Detect); Staphylococcus aureus by PCR ***DETECTED*** (Not Detect); Streptococcus agalactiae(B)PCR Not Detected (Not Detect); Streptococcus by PCR Not Detected (Not Detect); Streptococcus pneumoniae PCR Not Detected (Not Detect); Streptococcus pyogenes (A) PCR Not Detected (Not Detect); mecA Methicillin-Resist Gene ***DETECTED*** (Not Detect)
[2017-12-27] MEDS: cefTRIAXone 2,000 MG in Water for inj. (sterile) 20 ML 20 ML IVP SCH (11:57)
--- NOTE | 2017-12-27 18:40 | Internal Med Progress Note ---
Date of Encounter: 12/27/17 Time of Encounter: 11:00 - Assessment and plan (1) Bacteremia Current Visit: Yes Status: Acute Assessment and plan: Patient with preliminary results of gram-positive cocci noted in blood culture with concerns for MRSA She has been febrile overnight with a MAXIMUM TEMPERATURE of 103.5. Patient has been started on IV vancomycin in addition to IV ceftriaxone for coverage of possible UTI. (2) UTI (urinary tract infection) Current Visit: Yes Status: Acute Assessment and plan: Patient with pyuria on urinalysis; will cover with ceftriaxone until urine cultures known Qualifiers: Urinary tract infection type: acute cystitis Qualified Code(s): N30.00 - Acute cystitis without hematuria (3) T12 compression fracture Current Visit: Yes Status: Acute Assessment and plan: CT of thoracic spine showed mild superior endplate compression fracture of T12 appears acute. Orthopedic spine specialists consulted with recommendations for medical management Physical therapy consulted for evaluation for nursing facility placement (4) Fracture, clavicle closed, shaft Current Visit: Yes Status: Acute Assessment and plan: Imaging showed comminuted fracture sternal end right clavicle Orthopedics with recommendations for medical management without any surgical intervention at this time. Qualifiers: Encounter type: initial encounter Fracture alignment: nondisplaced Laterality: right Qualified Code(s): S42.024A - Nondisplaced fracture of shaft of right clavicle, initial encounter for closed fracture (5) Pancytopenia Current Visit: Yes Status: Acute Assessment and plan: Hematology/oncology following with recommendations for bone marrow biopsy as an outpatient Platelets monitored for potential transfusion (6) Hypertension Current Visit: No Status: Chronic Assessment and plan: Continue home medications Qualifiers: Hypertension type: essential hypertension Qualified Code(s): I10 - Essential (primary) hypertension (7) ESRD (end stage renal disease) Current Visit: Yes Status: Chronic Assessment and plan: Nephrology following with recommendations for hemodialysis on Sunday and Sunday (8) Diabetes mellitus Current Visit: Yes Status: Acute Assessment and plan: Will put the patient on insulin sliding scale. Accuchecks. Qualifiers: Diabetes mellitus type: type 2 Diabetes mellitus skilled nursing insulin use: without salvage determiner use Diabetes mellitus complication status: with kidney complications Diabetes mellitus complication detail: with other kidney complication Qualified Code(s): E11.29 - Type 2 diabetes mellitus with other diabetic kidney complication (9) DVT prophylaxis Current Visit: No Status: Acute Assessment and plan: scds due to low platelets. - Time Spent With Patient Total time spent is greater than 50% in coordination of care (as documented) at patient's floor/unit and/or counseling patient: - Subjective Interval history: Patient found to have a clavicle fracture in addition to T12 compression fracture status post fall Awaiting physical therapy evaluation for [facility] facility placement Patient now with fevers and bacteremia - Constitutional Vitals: Temp Pulse Resp BP Pulse Ox 98.5 F 68 16 118/64 95 12/27/17 16:46 12/27/17 16:46 12/27/17 16:46 12/27/17 16:46 12/27/17 16:46 General appearance: Present: no acute distress - Respiratory Respiratory exam: Present: CTAB. Absent: accessory muscle use, rales, rhonchi, wheezes - Cardiovascular Cardiovascular exam: Present: RRR, +S1, +S2. Absent: diastolic murmur, gallop, rubs, systolic murmur Internal Medicine: Result - Labs CBC & Chem 7: 12/27/17 00:47 12/27/17 00:47 Labs: Short CBC 12/27/17 Range/Units 00:47 WBC 2.5 L (4.3-11.1) K/mcL Hgb 8.7 L (11.5-15.4) g/dL Hct 25.9 L (35.3-44.9) % Plt Count 18 L* (140-400) K/mcL BMP 12/27/17 00:47 Sodium 140 Potassium 3.4 L Chloride 108 H Carbon Dioxide 21 L BUN 25 H Creatinine 2.78 H Glucose 211 H Calcium 8.6 Urine 12/26/17 Range/Units 22:10 Urine Color Red A (Yellow) Urine Clarity Cloudy A (Clear) Urine pH 7.0 (5.0-8.0) pH Units Ur Specific Cade 1.017 (1.010-1.025) Urine Protein 100 H (Neg-Trace) mg/dL Urine Glucose (UA) Normal (Normal) mg/dL - ABG Interpretation ABG results: PT/INR, D-dimer PT 15.0 Seconds (9.4-12.1) H 12/22/17 20:26 Consult Discharge Plan - Plan Referrals: Rashawn Michaels MD [Primary Care Provider] -
[2017-12-27] MEDS ORDERED: 0.9 % Sodium Chloride 250 ML IVC PRN (18:54)
[2017-12-28] MEDS ORDERED: 0.9 % Sodium Chloride 1,000 ML ONE (04:11)
[2017-12-28] MEDS ORDERED: *HR* Heparin 10,000 UNIT/10 ML VIAL IV PRN (05:56)
[2017-12-28 07:18] LABS: Calcium 8.3 mg/dL (8.6-10.3); Potassium 3.8 mEq/L (3.5-5.1)
[2017-12-28 07:31] LABS: Mean Corpuscular Volume 102.8 fL (83.0-100.0)
[2017-12-28 07:33] LABS: Hematocrit 26.1 % (35.3-44.9); Hemoglobin 8.4 g/dL (11.5-15.4); Immature Platelets 18.2 % (1.1-6.1); Mean Corpuscular HGB Conc 32.2 g/dL (31.6-35.5); Mean Corpuscular Hemoglobin 33.1 pg (28.0-33.3); Mean Platelet Volume 14.3 fL (9.4-12.4); Red Blood Count 2.54 M/mcL (3.82-4.97); Red Cell Distribution Width 18.7 % (11.5-14.5)
[2017-12-28] MEDS: Folic Acid 1 MG TABLET PO SCH (08:43)
[2017-12-28] MEDS: Cholecalciferol (D-3) 1,000 UNIT TABLET PO SCH (08:43)
[2017-12-28] MEDS: Insulin LISPRO 300 UNITS/3 ML VIAL SQ SCH ×4 (08:43→21:45)
[2017-12-28] MEDS: Calcium Acetate 667 MG CAPSULE PO SCH ×3 (08:43→17:03)
[2017-12-28] MEDS: amLODIPine 5 MG TABLET PO SCH (08:44)
[2017-12-28] MEDS: Budesonide/Formoterol 160/4.5 MDI IH SCH ×2 (10:52→20:04)
[2017-12-28] MEDS ORDERED: cefTRIAXone 2,000 MG in Water for inj. (sterile) 20 ML 20 ML IVP SCH (13:00)
--- NOTE | 2017-12-28 18:38 | Internal Med Progress Note ---
Date of Encounter: 12/28/17 Time of Encounter: 11:00 - Assessment and plan (1) Bacteremia Current Visit: Yes Status: Acute Assessment and plan: Patient with preliminary results of gram-positive cocci noted in blood culture with concerns for MRSA She has been febrile overnight with a MAXIMUM TEMPERATURE of 101.2 Patient started on IV vancomycin on 12/27/17; awaiting sensitivities (2) UTI (urinary tract infection) Current Visit: Yes Status: Acute Assessment and plan: Patient with pyuria on urinalysis; a minute results showed gram-positive cocci Continue IV vancomycin as above; IV ceftriaxone discontinue Qualifiers: Urinary tract infection type: acute cystitis Qualified Code(s): N30.00 - Acute cystitis without hematuria (3) T12 compression fracture Current Visit: Yes Status: Acute Assessment and plan: CT of thoracic spine showed mild superior endplate compression fracture of T12 appears acute. Orthopedic spine specialists consulted with recommendations for medical management Physical therapy consulted for evaluation for nursing facility placement (4) Fracture, clavicle closed, shaft Current Visit: Yes Status: Acute Assessment and plan: Imaging showed comminuted fracture sternal end right clavicle Orthopedics with recommendations for medical management without any surgical intervention at this time. Qualifiers: Encounter type: initial encounter Fracture alignment: nondisplaced Laterality: right Qualified Code(s): S42.024A - Nondisplaced fracture of shaft of right clavicle, initial encounter for closed fracture (5) Pancytopenia Current Visit: Yes Status: Acute Assessment and plan: Hematology/oncology following with recommendations for bone marrow biopsy as an outpatient Platelets monitored for potential transfusion (6) Hypertension Current Visit: No Status: Chronic Assessment and plan: Continue home medications Qualifiers: Hypertension type: essential hypertension Qualified Code(s): I10 - Essential (primary) hypertension (7) ESRD (end stage renal disease) Current Visit: Yes Status: Chronic Assessment and plan: Nephrology following with recommendations for hemodialysis on Sunday and Sunday (8) Diabetes mellitus Current Visit: Yes Status: Acute Assessment and plan: Will put the patient on insulin sliding scale. Accuchecks. Qualifiers: Diabetes mellitus type: type 2 Diabetes mellitus intermediate accountant insulin use: without halfway use Diabetes mellitus complication status: with kidney complications Diabetes mellitus complication detail: with other kidney complication Qualified Code(s): E11.29 - Type 2 diabetes mellitus with other diabetic kidney complication (9) DVT prophylaxis Current Visit: No Status: Acute Assessment and plan: scds due to low platelets. - Time Spent With Patient Total time spent is greater than 50% in coordination of care (as documented) at patient's floor/unit and/or counseling patient: - Subjective Interval history: Patient found to have a clavicle fracture in addition to T12 compression fracture status post fall Awaiting physical therapy evaluation for senior care facility placement Patient with fevers found to have gram-positive cocci in urine and in blood - Constitutional Vitals: Temp Pulse Resp BP Pulse Ox 98.1 F 66 19 101/62 92 12/28/17 15:39 12/28/17 15:39 12/28/17 15:39 12/28/17 15:39 12/28/17 15:39 General appearance: Present: no acute distress - Respiratory Respiratory exam: Present: CTAB. Absent: accessory muscle use, rales, rhonchi, wheezes - Cardiovascular Cardiovascular exam: Present: RRR, +S1, +S2. Absent: diastolic murmur, gallop, rubs, systolic murmur Internal Medicine: Result - Labs CBC & Chem 7: 12/28/17 06:10 12/28/17 06:10 Labs: Short CBC 12/28/17 Range/Units 06:10 WBC 2.5 L (4.3-11.1) K/mcL Hgb 8.4 L (11.5-15.4) g/dL Hct 26.1 L (35.3-44.9) % Plt Count 16 L* (140-400) K/mcL BMP 12/28/17 06:10 Sodium 138 Potassium 3.8 Chloride 103 Carbon Dioxide 27 BUN 28 H Creatinine 2.28 H Glucose 112 H Calcium 8.3 L Urine 12/26/17 Range/Units 22:10 Urine Color Red A (Yellow) Urine Clarity Cloudy A (Clear) Urine pH 7.0 (5.0-8.0) pH Units Ur Specific Sentinel 1.017 (1.010-1.025) Urine Protein 100 H (Neg-Trace) mg/dL Urine Glucose (UA) Normal (Normal) mg/dL - ABG Interpretation ABG results: PT/INR, D-dimer PT 15.0 Seconds (9.4-12.1) H 12/22/17 20:26 Consult Discharge Plan - Plan Referrals: Rashawn Michaels MD [Primary Care Provider] -
--- NOTE | 2017-12-29 05:43 | Nephrology Progress Note ---
Date of Encounter: 12/28/17 Time of Encounter: 11:15 - Assessment and Plan (1) ESRD (end stage renal disease) on dialysis Current Visit: Yes Status: Acute ESRD on dialysis MWF. Will perform additional dialysis as needed. Renal dose medications. (2) Bacteremia Current Visit: Yes Status: Acute (3) UTI (urinary tract infection) Current Visit: Yes Status: Acute UTI with bacteremia. Improving on antibiotics. Will need repeat blood cultures. Qualifiers: Urinary tract infection type: acute cystitis Qualified Code(s): N30.00 - Acute cystitis without hematuria Subjective Principal diagnosis: Chronic dialysis Interval history: Patient seen. No new complaint. Objective - Vital Signs Vital signs: Vital Signs Temp Pulse Resp BP Pulse Ox 12/29/17 03:58 99.4 F 70 18 104/63 94 12/28/17 21:16 70 115/55 12/28/17 20:06 16 94 12/28/17 18:29 98.8 F 69 16 103/52 94 12/28/17 15:39 98.1 F 66 19 101/62 92 12/28/17 11:22 99.4 F 65 18 105/54 100 12/28/17 10:52 18 93 12/28/17 08:38 99 F 68 22 95/49 93 12/28/17 08:26 98.7 F 18 99/45 12/28/17 08:10 94/43 12/28/17 07:55 91/45 12/28/17 07:40 94/47 12/28/17 07:25 95/45 12/28/17 07:10 99/49 12/28/17 06:55 98/44 12/28/17 06:40 99/46 12/28/17 06:25 98/45 12/28/17 06:10 96/49 12/28/17 05:55 98/47 Intake and Output 12/28/17 12/28/17 12/29/17 15:59 23:59 07:59 Intake Total 0 / 0 Output Total 1250 / 1250 0 / 0 Balance -1250 / -1250 0 / 0 Intake: Oral 0 / 0 Output: Urine 0 / 0 0 / 0 Total Dialysis (HD) Output 1100 / 1100 Catheter 150 / 150 Other: Meal Lunch Percent of Meal Consumed 0% Stool Size Large Moderate Stool Consistency loose loose Stool Color Brown Brown # Bowel Movements 1 # Bowel Movement Diapers 1 Weight 81 kg Blood Glucose* 99 152 Hemodialysis Net Fluid Removed 500 (mL) Patient Weight 12/29/17 23:59 Weight 81 kg - General Appearance General appearance: Present: well-developed, well-nourished EENT: Present: ATNC Cardiology: Present: regular rate - Lab 12/28/17 06:10 12/28/17 06:10 Most recent lab results Calcium 8.3 mg/dL (8.6-10.3) L 12/28/17 06:10 Phosphorus 7.3 mg/dL (2.7-4.5) H 12/23/17 06:11 Magnesium 2.1 mg/dL (1.6-2.6) 12/23/17 06:11 Consult Discharge Plan - Plan Referrals: Rashawn Michaels MD [Primary Care Provider] -
[2017-12-29 06:16] LABS: Hematocrit 23.9 % (35.3-44.9); Immature Platelets 11.1 % (1.1-6.1); Mean Corpuscular HGB Conc 33.5 g/dL (31.6-35.5); Mean Corpuscular Hemoglobin 34.3 pg (28.0-33.3); Mean Corpuscular Volume 102.6 fL (83.0-100.0); Red Blood Count 2.33 M/mcL (3.82-4.97); Red Cell Distribution Width 17.9 % (11.5-14.5)
[2017-12-29 06:20] LABS: Platelet Count 18 K/mcL (140-400)
[2017-12-29 06:37] LABS: Calcium 8.2 mg/dL (8.6-10.3); Potassium 3.8 mEq/L (3.5-5.1)
[2017-12-29] MEDS: Budesonide/Formoterol 160/4.5 MDI IH SCH ×2 (08:06→20:28)
[2017-12-29] MEDS: Insulin LISPRO 300 UNITS/3 ML VIAL SQ SCH ×4 (09:55→22:03)
[2017-12-29] MEDS: Cholecalciferol (D-3) 1,000 UNIT TABLET PO SCH (09:56)
[2017-12-29] MEDS: Calcium Acetate 667 MG CAPSULE PO SCH ×3 (09:56→16:27)
[2017-12-29] MEDS: amLODIPine 5 MG TABLET PO SCH (09:56)
[2017-12-29] MEDS: Folic Acid 1 MG TABLET PO SCH (09:56)
--- NOTE | 2017-12-29 11:15 | Nephrology Progress Note ---
Date of Encounter: 12/29/17 Time of Encounter: 11:13 - Assessment and Plan (1) ESRD (end stage renal disease) on dialysis Current Visit: Yes Status: Acute HD MWF. Renal vitamins. Renal dose medications. Renal diet. Additional dialysis and ultrafiltration as needed. No need for dialysis today. (2) Bacteremia Current Visit: Yes Status: Acute (3) UTI (urinary tract infection) Current Visit: Yes Status: Acute UTI with bacteremia. Improving on antibiotics. Consider repeat blood cultures. Qualifiers: Urinary tract infection type: acute cystitis Qualified Code(s): N30.00 - Acute cystitis without hematuria Subjective Principal diagnosis: Chronic dialysis Interval history: Patient seen. No new complaint. Objective - Vital Signs Vital signs: Vital Signs Temp Pulse Resp BP Pulse Ox 12/29/17 08:07 16 99 12/29/17 07:36 99.1 F 70 16 106/59 95 12/29/17 03:58 99.4 F 70 18 104/63 94 12/28/17 21:16 70 115/55 12/28/17 20:06 16 94 12/28/17 18:29 98.8 F 69 16 103/52 94 12/28/17 15:39 98.1 F 66 19 101/62 92 12/28/17 11:22 99.4 F 65 18 105/54 100 Intake and Output 12/28/17 12/29/17 12/29/17 23:59 07:59 15:59 Intake Total 0 / 0 Output Total 0 / 0 Balance 0 / 0 Intake: Oral 0 / 0 Output: Urine 0 / 0 Other: Stool Size Moderate Stool Consistency loose Stool Color Brown # Voids 0 # Bowel Movement Diapers 1 Weight 81 kg Blood Glucose* 152 159 Patient Weight 12/29/17 23:59 Weight 81 kg - General Appearance General appearance: Present: well-developed, well-nourished EENT: Present: ATNC Cardiology: Present: regular rate - Lab 12/29/17 05:42 12/29/17 05:42 Most recent lab results Calcium 8.2 mg/dL (8.6-10.3) L 12/29/17 05:42 Phosphorus 7.3 mg/dL (2.7-4.5) H 12/23/17 06:11 Magnesium 2.1 mg/dL (1.6-2.6) 12/23/17 06:11 - VTE Documentation of Mechanical Device: Intermittent pneumatic compression device Consult Discharge Plan - Plan Referrals: Rashawn Michaels MD [Primary Care Provider] -
--- NOTE | 2017-12-29 17:44 | Internal Med Progress Note ---
Date of Encounter: 12/29/17 Time of Encounter: 11:00 - Assessment and plan (1) Bacteremia Current Visit: Yes Status: Acute Assessment and plan: Patient positive for MRSA on blood cultures on 12/26/17 Will repeat blood cultures today Continue IV vancomycin started on 12/27/17 (2) UTI (urinary tract infection) Current Visit: Yes Status: Acute Assessment and plan: Patient urinary culture positive for MRSA Continue IV vancomycin as above Qualifiers: Urinary tract infection type: acute cystitis Qualified Code(s): N30.00 - Acute cystitis without hematuria (3) T12 compression fracture Current Visit: Yes Status: Acute Assessment and plan: CT of thoracic spine showed mild superior endplate compression fracture of T12 appears acute. Orthopedic spine specialists consulted with recommendations for medical management Physical therapy consulted for evaluation for nursing facility placement (4) Fracture, clavicle closed, shaft Current Visit: Yes Status: Acute Assessment and plan: Imaging showed comminuted fracture sternal end right clavicle Orthopedics with recommendations for medical management without any surgical intervention at this time. Qualifiers: Encounter type: initial encounter Fracture alignment: nondisplaced Laterality: right Qualified Code(s): S42.024A - Nondisplaced fracture of shaft of right clavicle, initial encounter for closed fracture (5) Pancytopenia Current Visit: Yes Status: Acute Assessment and plan: Hematology/oncology following with recommendations for bone marrow biopsy as an outpatient Platelets monitored for potential transfusion (6) Hypertension Current Visit: No Status: Chronic Assessment and plan: Continue home medications Qualifiers: Hypertension type: essential hypertension Qualified Code(s): I10 - Essential (primary) hypertension (7) ESRD (end stage renal disease) Current Visit: Yes Status: Chronic Assessment and plan: Nephrology following with recommendations for hemodialysis on Sunday and Sunday (8) Diabetes mellitus Current Visit: Yes Status: Acute Assessment and plan: Will put the patient on insulin sliding scale. Accuchecks. 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 - Time Spent With Patient Total time spent is greater than 50% in coordination of care (as documented) at patient's floor/unit and/or counseling patient: - Subjective Interval history: Patient found to have a clavicle fracture in addition to T12 compression fracture status post fall Patient now bacteremic with MRSA secondary to UTI which also grew MRSA - Constitutional Vitals: Temp Pulse Resp BP Pulse Ox 98.9 F 67 17 103/59 93 12/29/17 15:48 12/29/17 15:48 12/29/17 15:48 12/29/17 15:48 12/29/17 15:48 General appearance: Present: A&O X 2 (Alert and oriented to person and place), no acute distress - Respiratory Respiratory exam: Present: CTAB. Absent: accessory muscle use, rales, rhonchi, wheezes - Cardiovascular Cardiovascular exam: Present: RRR, +S1, +S2. Absent: diastolic murmur, gallop, rubs, systolic murmur Internal Medicine: Result - Labs CBC & Chem 7: 12/29/17 05:42 12/29/17 05:42 Labs: Short CBC 12/29/17 Range/Units 05:42 WBC 2.1 L (4.3-11.1) K/mcL Hgb 8.0 L (11.5-15.4) g/dL Hct 23.9 L (35.3-44.9) % Plt Count 18 L* (140-400) K/mcL BMP 12/29/17 05:42 Sodium 134 L Potassium 3.8 Chloride 99 Carbon Dioxide 26 BUN 41 H Creatinine 3.00 H Glucose 146 H Calcium 8.2 L - ABG Interpretation ABG results: PT/INR, D-dimer PT 15.0 Seconds (9.4-12.1) H 12/22/17 20:26 - VTE Documentation of Mechanical Device: Intermittent pneumatic compression device Consult Discharge Plan - Plan Referrals: Rashawn Michaels MD [Primary Care Provider] -
[2017-12-30] MEDS: Budesonide/Formoterol 160/4.5 MDI IH SCH ×2 (08:07→22:05)
[2017-12-30 09:00] LABS: Hemoglobin 8.1 g/dL (11.5-15.4)
[2017-12-30 09:01] LABS: Hematocrit 24.4 % (35.3-44.9); Immature Platelets 7.7 % (1.1-6.1); Mean Corpuscular HGB Conc 33.2 g/dL (31.6-35.5); Mean Corpuscular Hemoglobin 34.3 pg (28.0-33.3); Mean Corpuscular Volume 103.4 fL (83.0-100.0); Mean Platelet Volume 11.8 fL (9.4-12.4); Red Blood Count 2.36 M/mcL (3.82-4.97); Red Cell Distribution Width 17.9 % (11.5-14.5)
[2017-12-30] MEDS: Cholecalciferol (D-3) 1,000 UNIT TABLET PO SCH (09:09)
[2017-12-30] MEDS: Insulin LISPRO 300 UNITS/3 ML VIAL SQ SCH ×4 (09:09→22:30)
[2017-12-30] MEDS: Folic Acid 1 MG TABLET PO SCH (09:09)
[2017-12-30] MEDS: Calcium Acetate 667 MG CAPSULE PO SCH ×3 (09:09→16:17)
[2017-12-30] MEDS: amLODIPine 5 MG TABLET PO SCH (09:09)
[2017-12-30 09:22] LABS: Calcium 8.3 mg/dL (8.6-10.3)
--- NOTE | 2017-12-30 10:33 | Nephrology Progress Note ---
Date of Encounter: 12/31/17 Time of Encounter: 10:33 - Assessment and Plan (1) ESRD (end stage renal disease) on dialysis Current Visit: Yes Status: Acute HD MWF. Renal vitamins. Renal dose medications. Renal diet. Additional dialysis and ultrafiltration as needed. Patient received dialysis without incident. (2) Bacteremia Current Visit: Yes Status: Acute Repeat blood cultures positive. Consider echocardiogram. Awaiting culture data from tunneled catheter. (3) UTI (urinary tract infection) Current Visit: Yes Status: Acute UTI with bacteremia. Improving on antibiotics. Repeat blood cultures positive. Check echo. Qualifiers: Urinary tract infection type: acute cystitis Qualified Code(s): N30.00 - Acute cystitis without hematuria Subjective Principal diagnosis: Chronic dialysis Interval history: Patient seen. No new complaint. Awaiting ECF. Objective - Vital Signs Vital signs: Vital Signs Temp Pulse Resp BP Pulse Ox 12/30/17 08:07 16 106/58 96 12/30/17 06:47 98.2 F 64 16 106/58 96 12/30/17 03:34 98.1 F 64 17 106/65 94 12/30/17 00:40 98.3 F 65 17 95/59 95 12/29/17 20:28 18 97 12/29/17 20:03 98.7 F 68 17 100/57 97 12/29/17 15:48 98.9 F 67 17 103/59 93 12/29/17 11:17 98.9 F 70 17 117/64 95 Intake and Output 12/29/17 12/30/17 12/30/17 23:59 07:59 15:59 Intake Total 400 / 400 30 / 30 Output Total 150 / 150 Balance 400 / 400 -150 / -150 30 / 30 Intake: Oral 400 / 400 30 / 30 Output: Catheter 150 / 150 Other: Meal Breakfast Percent of Meal Consumed 0% Stool Size Moderate Small Stool Consistency soft loose Stool Color Brown Brown Pale # Bowel Movement Diapers 1 0 1 Weight 79.9 kg Blood Glucose* 141 146 Patient Weight 12/30/17 23:59 Weight 79.9 kg - General Appearance General appearance: Present: well-developed, well-nourished EENT: Present: ATNC Cardiology: Present: regular rate Psychiatric: Present: mood/affect appropriate - Lab 12/31/17 08:44 12/31/17 08:44 Most recent lab results Calcium 8.3 mg/dL (8.6-10.3) L 12/30/17 08:26 Phosphorus 7.3 mg/dL (2.7-4.5) H 12/23/17 06:11 Magnesium 2.1 mg/dL (1.6-2.6) 12/23/17 06:11 - VTE Documentation of Mechanical Device: Intermittent pneumatic compression device Consult Discharge Plan - Plan Referrals: Rashawn Michaels MD [Primary Care Provider] -
[2017-12-30 11:27] LABS: Potassium 3.8 mEq/L (3.5-5.1)
--- NOTE | 2017-12-30 17:08 | Internal Med Progress Note ---
Date of Encounter: 12/30/17 Time of Encounter: 11:00 - Assessment and plan (1) Bacteremia Current Visit: Yes Status: Acute Assessment and plan: Patient positive for MRSA on blood cultures on 12/26/17 Will repeat blood cultures ordered 12/29/17 Patient continues to have confusion due to bacteremia Continue IV vancomycin started on 12/27/17 (2) UTI (urinary tract infection) Current Visit: Yes Status: Acute Assessment and plan: Patient urinary culture positive for MRSA Patient continues to have confusion secondary to UTI Continue IV vancomycin as above Qualifiers: Urinary tract infection type: acute cystitis Qualified Code(s): N30.00 - Acute cystitis without hematuria (3) T12 compression fracture Current Visit: Yes Status: Acute Assessment and plan: CT of thoracic spine showed mild superior endplate compression fracture of T12 appears acute. Orthopedic spine specialists consulted with recommendations for medical management Physical therapy consulted for evaluation for nursing facility placement (4) Fracture, clavicle closed, shaft Current Visit: Yes Status: Acute Assessment and plan: Imaging showed comminuted fracture sternal end right clavicle Orthopedics with recommendations for medical management without any surgical intervention at this time. Qualifiers: Encounter type: initial encounter Fracture alignment: nondisplaced Laterality: right Qualified Code(s): S42.024A - Nondisplaced fracture of shaft of right clavicle, initial encounter for closed fracture (5) ESRD (end stage renal disease) Current Visit: Yes Status: Chronic Assessment and plan: Nephrology following with recommendations for hemodialysis on Sunday and Sunday (6) Pancytopenia Current Visit: Yes Status: Acute Assessment and plan: Hematology/oncology following with recommendations for bone marrow biopsy as an outpatient Platelets monitored for potential transfusion (7) Hypertension Current Visit: No Status: Chronic Assessment and plan: Continue home medications Qualifiers: Hypertension type: essential hypertension Qualified Code(s): I10 - Essential (primary) hypertension (8) Diabetes mellitus Current Visit: Yes Status: Acute Assessment and plan: Will put the patient on insulin sliding scale. Accuchecks. Qualifiers: Diabetes mellitus type: type 2 Diabetes mellitus salvage determiner insulin use: without fci use Diabetes mellitus complication status: with kidney complications Diabetes mellitus complication detail: with other kidney complication Qualified Code(s): E11.29 - Type 2 diabetes mellitus with other diabetic kidney complication (9) DVT prophylaxis Current Visit: No Status: Acute Assessment and plan: scds due to low platelets. - Time Spent With Patient Total time spent is greater than 50% in coordination of care (as documented) at patient's floor/unit and/or counseling patient: - Subjective Interval history: Patient found to have a clavicle fracture in addition to T12 compression fracture status post fall Patient now bacteremic with MRSA secondary to UTI which also grew MRSA Patient alert and oriented only to self; still with confusion due to the above - Constitutional Vitals: Temp Pulse Resp BP Pulse Ox 98.5 F 69 16 104/58 96 12/30/17 15:46 12/30/17 15:46 12/30/17 15:46 12/30/17 15:46 12/30/17 15:46 General appearance: Present: A&O X 1 (Oriented to person only), A&O X 2 (Alert and oriented to person and place), no acute distress - Respiratory Respiratory exam: Present: CTAB. Absent: accessory muscle use, rales, rhonchi, wheezes - Cardiovascular Cardiovascular exam: Present: RRR, +S1, +S2. Absent: diastolic murmur, gallop, rubs, systolic murmur Internal Medicine: Result - Labs CBC & Chem 7: 12/30/17 08:26 12/30/17 08:26 Labs: Short CBC 12/30/17 Range/Units 08:26 WBC 2.5 L (4.3-11.1) K/mcL Hgb 8.1 L (11.5-15.4) g/dL Hct 24.4 L (35.3-44.9) % Plt Count 18 L* (140-400) K/mcL [facility] 12/30/17 08:26 Sodium 134 L Potassium 3.8 Chloride 100 Carbon Dioxide 24 BUN 65 H Creatinine 4.39 H Glucose 141 H Calcium 8.3 L - ABG Interpretation ABG results: PT/INR, D-dimer PT 15.0 Seconds (9.4-12.1) H 12/22/17 20:26 - VTE Documentation of Mechanical Device: Intermittent pneumatic compression device Consult Discharge Plan - Plan Referrals: Rashawn Michaels MD [Primary Care Provider] -
[2017-12-30 19:12] LABS: Acinetobacter baumannii by PCR Not Detected (Not Detect); Candida albicans by PCR Not Detected (Not Detect); Candida glabrata by PCR Not Detected (Not Detect); Candida krusei by PCR Not Detected (Not Detect); Candida parapsilosis by PCR Not Detected (Not Detect); Candida tropicalis by PCR Not Detected (Not Detect); Enterococcus by PCR Not Detected (Not Detect); Escherichia coli by PCR Not Detected (Not Detect); Klebsiella oxytoca by PCR Not Detected (Not Detect); Klebsiella pneumoniae by PCR Not Detected (Not Detect); Pseudomonas aeruginosa by PCR Not Detected (Not Detect); Serratia marcescens by PCR Not Detected (Not Detect); Staphylococcus aureus by PCR ***DETECTED*** (Not Detect); Streptococcus agalactiae(B)PCR Not Detected (Not Detect); Streptococcus by PCR Not Detected (Not Detect); Streptococcus pneumoniae PCR Not Detected (Not Detect); Streptococcus pyogenes (A) PCR Not Detected (Not Detect); blaKPC Carbapenem-Resist Gene Not Detected (Not Detect); mecA Methicillin-Resist Gene ***DETECTED*** (Not Detect); vanA/B Vancomycin-Resist Genes Not Detected (Not Detect)
[2017-12-31] MEDS ORDERED: 0.9 % Sodium Chloride 2,000 ML ONE (04:20)
[2017-12-31] MEDS ORDERED: 0.9 % Sodium Chloride 250 ML IVC PRN (05:03)
[2017-12-31] MEDS ORDERED: *HR* Heparin 10,000 UNIT/10 ML VIAL IV PRN (05:03)
[2017-12-31] MEDS: Budesonide/Formoterol 160/4.5 MDI IH SCH ×2 (08:00→22:24)
[2017-12-31 09:07] LABS: Hemoglobin 9.1 g/dL (11.5-15.4); Mean Platelet Volume 12.7 fL (9.4-12.4)
[2017-12-31 09:09] LABS: Immature Platelets 7.9 % (1.1-6.1); Mean Corpuscular Hemoglobin 34.7 pg (28.0-33.3); Mean Corpuscular Volume 99.2 fL (83.0-100.0); Red Blood Count 2.62 M/mcL (3.82-4.97); Red Cell Distribution Width 17.3 % (11.5-14.5)
[2017-12-31] MEDS: Insulin LISPRO 300 UNITS/3 ML VIAL SQ SCH ×4 (09:09→20:17)
[2017-12-31] MEDS: amLODIPine 5 MG TABLET PO SCH (09:10)
[2017-12-31] MEDS: Calcium Acetate 667 MG CAPSULE PO SCH ×3 (09:10→16:41)
[2017-12-31] MEDS: Folic Acid 1 MG TABLET PO SCH (09:10)
[2017-12-31] MEDS: Cholecalciferol (D-3) 1,000 UNIT TABLET PO SCH (09:10)
[2017-12-31 09:14] LABS: Platelet Count 28 K/mcL (140-400)
[2017-12-31 09:31] LABS: Basophils % 0.3 %; Eosinophils # 0.1 K/mcL (0.0-0.6); Eosinophils % 2.6 %; Lymphocytes # 0.7 K/mcL (0.6-4.6); Lymphocytes % 17.3 %; Monocytes # 0.5 K/mcL (0.0-1.3); Monocytes % 12.1 %; Neutrophils # 2.6 K/mcL (1.6-8.9); Segmented Neutrophils % 66.7 %
[2017-12-31 09:45] LABS: Calcium 8.2 mg/dL (8.6-10.3); Potassium 3.7 mEq/L (3.5-5.1)
[2017-12-31 09:47] LABS: Platelet Estimate Marked Decrease (Normal)
--- NOTE | 2017-12-31 16:13 | Internal Med Progress Note ---
Date of Encounter: 12/31/17 Time of Encounter: 11:00 - Assessment and plan (1) Acute encephalopathy Current Visit: Yes Status: Acute Assessment and plan: Patient with continued confusion suspect secondary to UTI/bacteremia managed as below MRI of the brain on 12/31/17 without any acute findings and ammonia levels within normal limits Continue to monitor (2) Bacteremia Current Visit: Yes Status: Acute Assessment and plan: Patient positive for MRSA on blood cultures on 12/26/17 Will repeat blood cultures ordered 12/29/17 are again positive for gram-positive cocci Patient continues to have confusion due to bacteremia Continue IV vancomycin started on 12/27/17 Will discuss with email marketing intern about removing hemodialysis catheter as a potential source for infection (3) UTI (urinary tract infection) Current Visit: Yes Status: Acute Assessment and plan: Patient urinary culture positive for MRSA Patient continues to have confusion secondary to UTI/bacteremia Continue IV vancomycin as above Qualifiers: Urinary tract infection type: acute cystitis Qualified Code(s): N30.00 - Acute cystitis without hematuria (4) T12 compression fracture Current Visit: Yes Status: Acute Assessment and plan: CT of thoracic spine showed mild superior endplate compression fracture of T12 appears acute. Orthopedic spine specialists consulted with recommendations for medical management Physical therapy consulted for evaluation for nursing facility placement (5) Fracture, clavicle closed, shaft Current Visit: Yes Status: Acute Assessment and plan: Imaging showed comminuted fracture sternal end right clavicle Orthopedics with recommendations for medical management without any surgical intervention at this time. Qualifiers: Encounter type: initial encounter Fracture alignment: nondisplaced Laterality: right Qualified Code(s): S42.024A - Nondisplaced fracture of shaft of right clavicle, initial encounter for closed fracture (6) ESRD (end stage renal disease) Current Visit: Yes Status: Chronic Assessment and plan: Nephrology following with recommendations for hemodialysis on Sunday and Sunday (7) Pancytopenia Current Visit: Yes Status: Acute Assessment and plan: Hematology/oncology following with recommendations for bone marrow biopsy as an outpatient Platelets monitored for potential transfusion (8) Hypertension Current Visit: No Status: Chronic Assessment and plan: Continue home medications Qualifiers: Hypertension type: essential hypertension Qualified Code(s): I10 - Essential (primary) hypertension (9) Diabetes mellitus Current Visit: Yes Status: Acute Assessment and plan: Will put the patient on insulin sliding scale. Accuchecks. Qualifiers: Diabetes mellitus type: type 2 Diabetes mellitus stereotype caster insulin use: without nursing home use Diabetes mellitus complication status: with kidney complications Diabetes mellitus complication detail: with other kidney complication Qualified Code(s): E11.29 - Type 2 diabetes mellitus with other diabetic kidney complication (10) DVT prophylaxis Current Visit: No Status: Acute Assessment and plan: scds due to low platelets. - Time Spent With Patient Total time spent is greater than 50% in coordination of care (as documented) at patient's floor/unit and/or counseling patient: - Subjective Interval history: Patient found to have a clavicle fracture in addition to T12 compression fracture status post fall Patient now bacteremic with MRSA secondary to UTI which also grew MRSA on 2 different sets of cultures drawn on different dates after starting IV vancomycin Patient alert and oriented only to self; still with confusion due to the above - Constitutional Vitals: Temp Pulse Resp BP Pulse Ox 97.7 F 86 20 90/55 100 12/31/17 15:39 12/31/17 15:39 12/31/17 15:39 12/31/17 15:39 12/31/17 15:39 General appearance: Present: A&O X 0 (Patient continues to have confusion this morning), A&O X 1 (Oriented to person only), A&O X 2 (Alert and oriented to person and place), no acute distress - Respiratory Respiratory exam: Present: CTAB. Absent: accessory muscle use, rales, rhonchi, wheezes - Cardiovascular Cardiovascular exam: Present: RRR, +S1, +S2. Absent: diastolic murmur, gallop, rubs, systolic murmur Internal Medicine: Result - Labs CBC & Chem 7: 12/31/17 08:44 12/31/17 08:44 Labs: Short CBC 12/31/17 Range/Units 08:44 WBC 3.9 L D (4.3-11.1) K/mcL Hgb 9.1 L (11.5-15.4) g/dL Hct 26.0 L (35.3-44.9) % Plt Count 28 L* D (140-400) K/mcL Neutrophils # 2.6 (1.6-8.9) K/mcL BMP 12/31/17 08:44 Sodium 136 Potassium 3.7 Chloride 101 Carbon Dioxide 25 BUN 37 H Creatinine 2.59 H Glucose 94 Calcium 8.2 L - ABG Interpretation ABG results: PT/INR, D-dimer PT 15.0 Seconds (9.4-12.1) H 12/22/17 20:26 - Impressions Impressions Brain MRI 12/31/17 11:48 IMPRESSION: No acute infarct, intracranial hemorrhage, or significant mass effect. Chronic small vessel ischemic white matter disease and cerebral volume loss. D/ / 12/31/2017 14:45:11 Ayaan Gill MD / lindsey Interpreting Provider: Ayaan Gill MD - VTE Documentation of Mechanical Device: Intermittent pneumatic compression device Consult Discharge Plan - Plan Referrals: Rashawn Michaels MD [Primary Care Provider] -
[2018-01-01] MEDS ORDERED: *HR* OxyCODONE Immed Rel 5 MG TABLET PO PRN (03:56)
[2018-01-01 05:17] LABS: mecA Methicillin-Resist Gene ***DETECTED*** (Not Detect)
[2018-01-01 05:18] LABS: Acinetobacter baumannii by PCR Not Detected (Not Detect); Candida albicans by PCR Not Detected (Not Detect); Candida glabrata by PCR Not Detected (Not Detect); Candida krusei by PCR Not Detected (Not Detect); Candida parapsilosis by PCR Not Detected (Not Detect); Candida tropicalis by PCR Not Detected (Not Detect); Enterococcus by PCR Not Detected (Not Detect); Escherichia coli by PCR Not Detected (Not Detect); Klebsiella oxytoca by PCR Not Detected (Not Detect); Klebsiella pneumoniae by PCR Not Detected (Not Detect); Pseudomonas aeruginosa by PCR Not Detected (Not Detect); Serratia marcescens by PCR Not Detected (Not Detect); Staphylococcus aureus by PCR ***DETECTED*** (Not Detect); Streptococcus agalactiae(B)PCR Not Detected (Not Detect); Streptococcus by PCR Not Detected (Not Detect); Streptococcus pneumoniae PCR Not Detected (Not Detect); Streptococcus pyogenes (A) PCR Not Detected (Not Detect)
[2018-01-01] MEDS: amLODIPine 5 MG TABLET PO SCH (08:13)
--- NOTE | 2018-01-01 08:30 | IR Procedure Note ---
Date of procedure: 01/01/18 Consent Obtained: Verbal consent Timeout: Correct patient and procedure verified, Correct site verified, Time out performed, Skin prep completed Local anesthetic: Lidocaine 1% Indications: Bacteremia Procedure Performed: Tunneled HD catheter removal Was there an licensed physical therapist assistant present: No Site/Technique: Tunneled HD catheter removed Results/Findings: Catheter removed Estimated blood loss (cc): 0 Complications: None; Tolerated procedure well Post Procedure Treatment Plan: Continue inpatient care Specimen: Catheter tip
[2018-01-01] MEDS: Darbepoetin 100 MCG/0.5 ML SYRINGE SQ SCH (08:47)
[2018-01-01] MEDS: Insulin LISPRO 300 UNITS/3 ML VIAL SQ SCH ×4 (08:48→22:35)
[2018-01-01] MEDS: Calcium Acetate 667 MG CAPSULE PO SCH ×3 (08:48→17:01)
[2018-01-01] MEDS: Folic Acid 1 MG TABLET PO SCH (08:48)
[2018-01-01] MEDS: Cholecalciferol (D-3) 1,000 UNIT TABLET PO SCH (08:48)
[2018-01-01] MEDS: Budesonide/Formoterol 160/4.5 MDI IH SCH ×2 (09:51→20:48)
--- NOTE | 2018-01-01 10:31 | Nephrology Progress Note ---
Date of Encounter: 01/01/18 Time of Encounter: 10:31 - Assessment and Plan (1) ESRD (end stage renal disease) on dialysis Current Visit: Yes Status: Acute HD MWF. Renal vitamins. Renal dose medications. Renal diet. Tunneled line removed due to + BC's. Will try to hold HD until , will then have IR place new temporary line and proceed with HD. (2) Bacteremia Current Visit: Yes Status: Acute Echo has been ordered per primary. Per primary team. (3) Pancytopenia Current Visit: Yes Status: Acute Hematology/oncology on board for recommendations. (4) UTI (urinary tract infection) Current Visit: Yes Status: Acute Improving with antibiotics. Does have Alatorre catheter in place. Qualifiers: Urinary tract infection type: acute cystitis Qualified Code(s): N30.00 - Acute cystitis without hematuria Subjective Principal diagnosis: Chronic dialysis Interval history: Pt seen and examined, denies CP/SOB. Admits to feeling fatigued. Objective - Vital Signs Vital signs: Vital Signs Temp Pulse Resp BP Pulse Ox 01/01/18 09:51 16 94 01/01/18 08:47 92/57 01/01/18 07:15 98.0 F 70 18 88/53 93 01/01/18 03:44 97.8 F 73 17 98/58 92 12/31/17 23:14 98.9 F 71 17 101/56 95 12/31/17 22:24 17 93 12/31/17 20:13 97.9 F 69 18 96/61 96 12/31/17 15:39 97.7 F 86 20 90/55 100 12/31/17 10:28 97.9 F 81 22 97/65 92 Intake and Output 12/31/17 01/01/18 01/01/18 23:59 07:59 15:59 Intake Total 690 / 690 90 / 90 Output Total 0 / 0 Balance 690 / 690 90 / 90 Intake: Oral 690 / 690 90 / 90 Output: Urine 0 / 0 Other: Meal Dinner Breakfast Percent of Meal Consumed 75% 5% Stool Size Moderate Stool Consistency loose soft Stool Color Brown # Bowel Movement Diapers 1 Weight 81.1 kg Blood Glucose* 177 143 Patient Weight 01/01/18 23:59 Weight 81.1 kg - General Appearance General appearance: Present: chronically ill, frail EENT: Present: ATNC, hearing intact, vision intact Neck: Present: supple Respiratory: Present: clear Cardiology: Present: no edema, regular rate, regular rhythm, normal S1, normal S2 Gastrointestinal: Present: normoactive bowel sounds Integumentary: Present: no rash, warm and dry Neurologic: Present: confused Psychiatric: Present: mood/affect appropriate, cooperative - Lab 12/31/17 08:44 12/31/17 08:44 Most recent lab results Calcium 8.2 mg/dL (8.6-10.3) L 12/31/17 08:44 Phosphorus 7.3 mg/dL (2.7-4.5) H 12/23/17 06:11 Magnesium 2.1 mg/dL (1.6-2.6) 12/23/17 06:11 - VTE Documentation of Mechanical Device: Intermittent pneumatic compression device Consult Discharge Plan - Plan Referrals: Rashawn Michaels MD [Primary Care Provider] -
--- NOTE | 2018-01-01 11:26 | Infectious Disease Consult ---
Date of Encounter: 01/01/18 Time of Encounter: 11:22 Assessment and Plan (1) Severe sepsis Status: Acute Assessment and plan: The patient had two SIRS criteria plus AMS and lactic acidosis on 12/26/17. She also had leukopenia on admission, which appears chronic. Likely secondary to bacteremia and dialysis catheter infection. Improved. Afebrile since 12/27/17. Tachycardia has resolved. WBC up to 3.9. AMS and lactic acidosis resolved. Peripheral blood cultures drawn 12/26/17 are positive 2/2 sets for MRSA. Repeat peripheral blood cultures drawn 12/29/17 are positive 2/2 sets as well. lood cultures drawn 12/31/17 from the patient's Perma-cath are positive for MRSA. (2) Bacteremia Status: Acute Assessment and plan: Causative organism: MRSA. Peripheral blood cultures drawn 12/26/17 are positive 2/2 sets for MRSA. Repeat peripheral blood cultures drawn 12/29/17 are positive 2/2 sets as well. Blood cultures drawn 12/31/17 from the patient's Perma-cath are positive for MRSA. Status post perma-cath removal 01/01/18. Complicated due to persistent bacteremia and seeding of the kidneys. No endocarditis stigmata noted on exam. The patient has one major and one minor Modified Salazar's Criteria. Check rheumatoid factor. Repeat blood cultures x 2 sets in the AM. Get TTE. If negative, would like to have TTE, but not sure this is feasible since the patient's platelets are so low. Continue Vancomycin IV. Pharmacy to dose. Goal trough ~15. Duration of treatment depends on the clinical picture, but likely 4-6 weeks. Monitor for drug toxicity and dose-adjust antibiotics. (3) UTI (urinary tract infection) Status: Acute Assessment and plan: Causative organism: MRSA. Likely seeding from bacteremia. Continue Vancomycin as above. Qualifiers: Urinary tract infection type: acute cystitis Hematuria presence: without hematuria Qualified Code(s): N30.00 - Acute cystitis without hematuria (4) Acute encephalopathy Status: Resolved Assessment and plan: Likely secondary to sepsis. CT head negative in the ER and 12/26/17. Appears improved. Continue to monitor closely. (5) Pleural effusion, left Status: Resolved Assessment and plan: Likely secondary to ESRD and ESLD. Management per the primary team. (6) Acute respiratory failure with hypoxia Status: Resolved Assessment and plan: Likely secondary to pulmonary edema and pleural effusion. Appears improved. Further management per the primary team. (7) Hypoxemia Status: Resolved (8) Pancytopenia Status: Chronic Assessment and plan: Evaluated by Hem/Onc during last hospital stay. Likely secondary to ESLD. May need BMB as outpatient if worsens/does not get better. Hem/Onc consulted and following. Transfusion parameters per the primary and Hem/Onc teams. (9) Closed compression fracture of L1 lumbar vertebral body Status: Acute Assessment and plan: Secondary to fall. CT scans show T12 and L1 compression fracture. Dr. Garcia consulted. No surgical intervention. Further management per the primary and ortho teams. (10) Fall Status: Acute Qualifiers: Encounter type: initial encounter Qualified Code(s): W19.XXXA - Unspecified fall, initial encounter (11) Liver cirrhosis secondary to nonalcoholic steatohepatitis (HENRIQUEZ) Status: Chronic Assessment and plan: MELD score 22 during last hospitalization. Recommend GI follow-up. Check LFTs. (12) Diabetes mellitus type 2 in obese Status: Chronic (13) Hypersplenism Status: Chronic (14) ESRD (end stage renal disease) on dialysis Status: Acute Assessment and plan: [facility] consulted and following. Dose-adjust antibiotics for HD status. Infectious Disease HPI - Data of Consult Patient: new to practice Consult date: 01/01/18 Requesting Physician: Wade Barger MD Primary Care Provider: Rashawn Michaels, - Consult Narrative Reason for consult: MRSA Bacteremia History of present illness: Ms. Shaffer is a 72 year old female with a past medical history of nonalcoholic cirrhosis of the liver, diabetes, hypertension, pancytopenia secondary to end- stage liver disease, stage renal disease on hemodialysis Sunday, Sunday, and Sunday, and COPD. The patient was in the hospital December 22 for T12 compression fracture fracture, pancytopenia, and clavicle fracture. We are consulted January 01 for antibiotic recommendations for persistent MRSA bacteremia. Briefly, the patient is a 72-year-old female with past medical history as stated above. The patient apparently was at a graduation constitution party when she sustained a fall after she tripped trying to get out the door. Upon arrival to the ER, the patient was afebrile hemodynamically stable. She was noted to be a little hypoxic. Laboratory studies revealed findings consistent with her known pancytopenia and end-stage renal disease. She had a CT of the cervical, thoracic, and lumbar spines showed a T12 and L1 compression fracture and small left-sided pleural effusion. She had a CT of head that was negative. Chest x- ray showed mild vascular congestion changes with small bilateral pleural effusions, left greater than right. She was admitted to the hospital for orthopedic evaluation and pain management. Since admission, the patient had remained afebrile and hemodynamically stable until December 26 when she became febrile and had altered mental status. She had a CT of the head showed chronic microvascular changes, but nothing acute. Peripheral blood cultures were obtained 2 sets that were positive for MRSA. Urine culture was obtained as well as positive for MRSA as well. The patient continued to be febrile through December 27, but has been afebrile since then. Repeat peripheral blood cultures drawn December 29 are +2 out of 2 sets for MRSA. Additional blood cultures obtained from the patient's permacath are +2 out of 2 sets as well. The patient underwent permacath removal this morning. Her white blood cell count has improved to 3.9 with 12% monocytes. Platelets are up to 20 ,000. Hemoglobin is stable at 9.1. She was started on IV vancomycin and IV Rocephin initially. IV Rocephin has been discontinued. We have been asked to evaluate and make further recommendations. The patient's mental status precludes her ability to provide me with much information regarding the events leading up to her hospitalization or ROS prior to admission, so most of the information is obtained from the medical record. During my exam, the patient denies fevers, chills, back pain, chest pain, shortness of breath, nausea, vomiting, diarrhea, or abdominal pain. She is unable to provide me with any other ROS information. According to the patient, she lives at home with her sister. She denies tobacco , alcohol, or illicit drug use. CC: Wade Bagrer MD Past Med Surg Social Fam HX - Past Medical History Source: old records reviewed, nursing notes reviewed Medical history: asthma, cirrhosis (HENRIQUEZ), diabetes, hypertension, other Psychiatric history: no psych history - Past Surgical History Surgical History: hysterectomy, orthopedic, other - Social History Smoking Status: Never smoker Smokeless Tobacco Status: No Alcohol use: none Drug use: none Occupational status: unemployed Current living situation: Home, With Family - Family History Mother Living Status: Hx Family Cardiac Disorders: Yes Hx Family Neuromuscular Disorders: Yes (Stroke) Father Adopted: No Family Member Ethnicity: Non- Living Status: Cause of : DE Hx Family Cardiac Disorders: Yes Hx Family Respiratory Disorders: No Hx Family Cancer: Yes Hx Family GI Disorders: No Hx Family Endocrine Disorder: Yes Hx Family Neuromuscular Disorders: No Hx Family Neurologic Disorders: No Hx Family HEENT Disorders: No Hx Family Autoimmune Disorders: No Infectious Disease-CN:Meds Cholecalciferol (D-3) 5,000 unit PO BID 30 Days tablet 06/18/15 [Rx] Allopurinol [Zyloprim 100 MG] 200 mg PO DAILY 08/06/17 [History] Atorvastatin [Lipitor] 10 mg PO HS 08/06/17 [History] Citalopram Hydrobromide [Citalopram HBr] 40 mg PO DAILY 08/06/17 [History] Cyanocobalamin (B-12) [Vitamin B12] 1,000 mcg IM QMONTH 08/06/17 [History] Folic Acid 1 mg PO DAILY 08/06/17 [History] Insulin ASPART [Novolog] 12 unit SQ QPM 10/31/17 [History] Insulin ASPART [Novolog] 22 unit SQ QAM 10/31/17 [History] Propranolol [Inderal] 20 mg PO BID #10 tablet 11/21/17 [Rx] amLODIPine [Norvasc] 5 mg PO DAILY 5 Days #5 tablet 11/21/17 [Rx] Calcium Acetate [Phos-LO] 667 mg PO DAILY 12/23/17 [History] Fluticasone/Vilanterol [Breo Ellipta 100-25 Mcg INH] 1 puff IH DAILY 12/23/17 [ History] 3 Allergy/AdvReac Type Severity Reaction Status Date / Time No Known Drug Allergies Allergy See Verified 10/31/17 08:46 Comments All systems: reviewed and no additional remarkable complaints except as stated Exam - Constitutional Vitals: Temp Pulse Resp BP Pulse Ox 98.0 F 66 18 82/51 93 01/01/18 11:02 01/01/18 11:02 01/01/18 11:02 01/01/18 11:02 01/01/18 11:02 General appearance: cooperative, no acute distress, obese - Head Head exam: Present: atraumatic, normal inspection, normocephalic - Eye Eye exam: Present: EOMI, normal appearance, PERRL Pupils: Present: normal accommodation Additional comments: No subconjunctival hemorrhage noted. - ENT ENT exam: Present: mucous membranes moist - Neck Neck exam: Present: normal inspection - Respiratory Respiratory exam: Present: CTAB. Absent: rales, respiratory distress, rhonchi, wheezes - Cardiovascular Cardiovascular exam: Present: RRR, +S1, +S2 - GI/Abdominal GI/Abdominal exam: Present: distended (obese), normal bowel sounds, soft. Absent: tenderness Additional comments: Alatorre catheter noted to be draining dark yellow urine. - Extremities Exam Extremities exam: Present: normal inspection. Absent: joint swelling, pedal edema, tenderness Additional comments: No endocarditis stigmata noted. - Back Exam Additional comments: Deferred at this time. - Neurological Exam Neurological exam: Present: alert, no focal deficits. Absent: oriented X3 ( Oriented to person and place only.), facial droop, speech deficit - Skin Skin exam: Present: dry, intact, normal color, warm Additional comments: No endocarditis stigmata noted. - Additional findings Additional findings: Right upper chest dressing C/D/I. Infectious Disease CN: Results - Labs CBC & Chem 7: 01/02/18 06:00 01/02/18 06:00 Cultures: Cultures 12/29/17 18:47 Blood Culture - Preliminary Peripheral Venipuncture Gram Positive Cocci 12/31/17 06:15 Blood Culture - Preliminary Central Venous Catheter Gram Positive Cocci 12/31/17 06:30 Blood Culture - Preliminary Central Venous Catheter Gram Positive Cocci 12/29/17 18:58 Blood Culture - Preliminary Peripheral Venipuncture Gram Positive Cocci 12/26/17 21:49 Blood Culture - Final Peripheral Venipuncture Methicillin Resistant S.aureus 12/26/17 21:10 Blood Culture - Final Peripheral Venipuncture Methicillin Resistant S.aureus 12/26/17 22:10 Urine Culture - Final Urine,Alatorre Port Methicillin Resistant S.aureus Serology: Serology 12/31/17 12/29/17 12/26/17 Range/Units 06:30 18:58 22:10 Ur Specimen Adequacy See below A Urine Color Red A (Yellow) Urine Clarity Cloudy A (Clear) Urine pH 7.0 (5.0-8.0) pH Units Ur Specific [place] 1.017 (1.010-1.025) Urine Protein 100 H (Neg-Trace) mg/dL Urine Glucose (UA) Normal (Normal) mg/dL Urine Ketones Negative (Negative) mg/dL Urine Blood Large H (Negative) Urine Nitrite Negative (Negative) Urine Bilirubin Small H (Negative) Urine Urobilinogen Normal (Normal) mg/dL Ur Leukocyte Esterase Small H (Negative) Urine Microscopic RBC TNTC H (0-3) per hpf Urine Microscopic WBC 5-15 H (0-3) per hpf Ur Squamous Epith Cells Moderate H (None-Few) per lpf Ur Transition Epith Cell Few (None-Few) per hpf Urine Bacteria Few (None-Few) per hpf Ur Culture Indicated? YES A (NO) A. baumannii (PCR) Not Detected Not Detected (Not Detect) Jazmine albicans (PCR) Not Detected Not Detected (Not Detect) C. glabrata (PCR) Not Detected Not Detected (Not Detect) C. krusei (PCR) Not Detected Not Detected (Not Detect) C. parapsilosis (PCR) Not Detected Not Detected (Not Detect) C. tropicalis (PCR) Not Detected Not Detected (Not Detect) Enterobacteriac sp PCR Not Detected Not Detected (Not Detect) E. cloacae complex PCR Not Detected Not Detected (Not Detect) Enterococcus sp PCR Not Detected Not Detected (Not Detect) E. coli (PCR) Not Detected Not Detected (Not Detect) H. influenzae (PCR) Not Detected Not Detected (Not Detect) Hep Bs Antigen (Nonreactive) Hep Bs Antibody mIU/mL Klebsiella oxytoca PCR Not Detected Not Detected (Not Detect) Klebsiella pneumoniae Not Detected Not Detected (Not Detect) List. monocytogenes PCR Not Detected Not Detected (Not Detect) N. meningitidis (PCR) Not Detected Not Detected (Not Detect) Proteus species (PCR) Not Detected Not Detected (Not Detect) Serratia marcescens PCR Not Detected Not Detected (Not Detect) Staphylococcus sp PCR DETECTED A DETECTED A (Not Detect) Staph aureus (PCR) DETECTED A DETECTED A (Not Detect) mecA-Methicil Res Gene DETECTED A DETECTED A (Not Detect) Streptococcus sp PCR Not Detected Not Detected (Not Detect) Group A Strep DNA Not Detected Not Detected (Not Detect) Group B Strep (PCR) Not Detected Not Detected (Not Detect) Strep pneumoniae (PCR) Not Detected Not Detected (Not Detect) P. aeruginosa (PCR) Not Detected Not Detected (Not Detect) Jaimee/B-Vanco Res Genes N/A Not Detected (Not Detect) KPC (blaKPC) Detect PCR N/A Not Detected (Not Detect) 12/26/17 12/24/17 Range/Units 21:10 06:36 Ur Specimen Adequacy Urine Color (Yellow) Urine Clarity (Clear) Urine pH (5.0-8.0) pH Units Ur Specific [place] (1.010-1.025) Urine Protein (Neg-Trace) mg/dL Urine Glucose (UA) (Normal) mg/dL Urine Ketones (Negative) mg/dL Urine Blood (Negative) Urine Nitrite (Negative) Urine Bilirubin (Negative) Urine Urobilinogen (Normal) mg/dL Ur Leukocyte Esterase (Negative) Urine Microscopic RBC (0-3) per hpf Urine Microscopic WBC (0-3) per hpf Ur Squamous Epith Cells (None-Few) per lpf Ur Transition Epith Cell (None-Few) per hpf Urine Bacteria (None-Few) per hpf Ur Culture Indicated? (NO) A. baumannii (PCR) Not Detected (Not Detect) Jazmine albicans (PCR) Not Detected (Not Detect) C. glabrata (PCR) Not Detected (Not Detect) C. krusei (PCR) Not Detected (Not Detect) C. parapsilosis (PCR) Not Detected (Not Detect) C. tropicalis (PCR) Not Detected (Not Detect) Enterobacteriac sp PCR Not Detected (Not Detect) E. cloacae complex PCR Not Detected (Not Detect) Enterococcus sp PCR Not Detected (Not Detect) E. coli (PCR) Not Detected (Not Detect) H. influenzae (PCR) Not Detected (Not Detect) Hep Bs Antigen Nonreactive (Nonreactive) Hep Bs Antibody 39.72 mIU/mL Klebsiella oxytoca PCR Not Detected (Not Detect) Klebsiella pneumoniae Not Detected (Not Detect) List. monocytogenes PCR Not Detected (Not Detect) N. meningitidis (PCR) Not Detected (Not Detect) Proteus species (PCR) Not Detected (Not Detect) Serratia marcescens PCR Not Detected (Not Detect) Staphylococcus sp PCR DETECTED A (Not Detect) Staph aureus (PCR) DETECTED A (Not Detect) mecA-Methicil Res Gene DETECTED A (Not Detect) Streptococcus sp PCR Not Detected (Not Detect) Group A Strep DNA Not Detected (Not Detect) Group B Strep (PCR) Not Detected (Not Detect) Strep pneumoniae (PCR) Not Detected (Not Detect) P. aeruginosa (PCR) Not Detected (Not Detect) Jaimee/B-Vanco Res Genes N/A (Not Detect) KPC (blaKPC) Detect PCR N/A (Not Detect) - VTE Documentation of Mechanical Device: Intermittent pneumatic compression device Consult Discharge Plan - Plan Referrals: Rashawn Michaels MD [Primary Care Provider] - - Attending Attestation I examined this patient and my medical decision-making was reviewed with the Resident Physician. I agree with the documented findings, disposition and treatment plan as described except to the extent set forth below. This is an addendum dictated by Lila Baptiste CNP. please refer to her note for full details. Patient is a 72 year old woman with PMH mentioned below was had a fall with T12 fracture, clavicle fracture was admitted to [facility] for evaluation. WE are consulted now for MRSA bacteremia likely source is the dialysis catheter in the right chest, s/p removal today.Patient currently laying in bed and appears comfortable but nursing tell me she has been confused and not following directions. PT does appear somewhat jaundiced. No acute distress, Physical exam as above.Since admission, the patient had remained afebrile and hemodynamically stable until December 26 when she became febrile and had altered mental status. She had a CT of the head showed chronic microvascular changes, but nothing acute. Peripheral blood cultures were obtained 2 sets that were positive for MRSA. Urine culture was obtained as well as positive for MRSA as well. The patient continued to be febrile through December 27, but has been afebrile since then. Repeat peripheral blood cultures drawn December 29 are +2 out of 2 sets for MRSA. Additional blood cultures obtained from the patient's permacath are +2 out of 2 sets as well. The patient underwent permacath removal this morning. Her white blood cell count has improved to 3.9 with 12% monocytes. Platelets are up to 20,000. Hemoglobin is stable at 9.1. She was started on IV vancomycin and IV Rocephin initially. IV Rocephin has been discontinued. We have been asked to evaluate and make further recommendations. A/P Severe sepsis MRSA bacteremia MRSA UTI dialysis catheter associated infection ESRD on HD ESLD non alcoholic (last MELD was 22) multiple fractures metabolic/hepatic encephalopathy Recommendations: continue vancomycin goal trough around 15 duration of treatment depends on clinical picture but likely at least 4 weeks Get TTE follow by [facility] check LFTs and bilirubin monitor labs and for drug toxicity will continue to follow
--- NOTE | 2018-01-01 14:10 | Internal Med Progress Note ---
Date of Encounter: 01/01/18 Time of Encounter: 14:10 - Assessment and plan (1) DVT prophylaxis Current Visit: Yes Status: Acute Assessment and plan: EPCDs due to low PLT (2) Hypertension Current Visit: Yes Status: Chronic Assessment and plan: Continue current meds Qualifiers: Hypertension type: essential hypertension Qualified Code(s): I10 - Essential (primary) hypertension (3) Pancytopenia Current Visit: Yes Status: Chronic Assessment and plan: chronic, due to liver cirrhosis, oncology eval in the past and present, continue to monitor Transfuse to Hb <7 Transfuse for PLT <10,000, or bleeding Continue to monitor (4) Fracture, clavicle closed, shaft Current Visit: Yes Status: Acute Assessment and plan: Imaging showed comminuted fracture sternal end right clavicle Orthopedics with recommendations for medical management without any surgical intervention at this time. Qualifiers: Encounter type: initial encounter Fracture alignment: nondisplaced Laterality: right Qualified Code(s): S42.024A - Nondisplaced fracture of shaft of right clavicle, initial encounter for closed fracture (5) T12 compression fracture Current Visit: Yes Status: Acute Assessment and plan: CT of thoracic spine showed mild superior endplate compression fracture of T12 appears acute. Orthopedic spine specialists consulted with recommendations for medical management Physical therapy consulted for evaluation for nursing facility placement- for ECF upon discharge (6) Diabetes mellitus Current Visit: Yes Status: Chronic Assessment and plan: Continue insulin sliding scale. Accuchecks. 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 Repeat peripheral blood cultures drawn 12/29/17 are positive 2/2 sets as well. Blood cultures drawn 12/31/17 from the patient's Perma-cath are positive for MRSA. Status post perma-cath removal 01/01/18. Complicated due to persistent bacteremia and seeding of the kidneys. TTE ordered Repeat blood culture scheduled for 01/02 (9) UTI (urinary tract infection) Current Visit: Yes Status: Acute Assessment and plan: Patient urinary culture positive for MRSA Patient continues to have confusion secondary to UTI/bacteremia Continue IV vancomycin as above Qualifiers: Urinary tract infection type: acute cystitis Hematuria presence: without hematuria Qualified Code(s): N30.00 - Acute cystitis without hematuria (10) Acute encephalopathy Current Visit: Yes Status: Acute Assessment and plan: Resolved,possibly due to severe sepsis (11) Hypersplenism Current Visit: Yes Status: Chronic Assessment and plan: chronic,stable, due to liver cirrhosis (12) Liver cirrhosis secondary to nonalcoholic steatohepatitis (HENRIQUEZ) Current Visit: Yes Status: Chronic Assessment and plan: chronic, continue to monitor (13) Severe sepsis Current Visit: Yes Status: Acute Assessment and plan: Secondary to MRSA CLABSI Afebrile since 12/27/17. Tachycardia has resolved. WBC up to 3.9. AMS and lactic acidosis resolved. Continue Vanco - Time Spent With Patient Total time spent is greater than 50% in coordination of care (as documented) at patient's floor/unit and/or counseling patient: - Subjective Interval history: Seen and evaluated at bedside 72 F with known Cirrhosis and ESRD on HD, Pancytpenia, being managed for Severe Sepsis due to UTI and MRSA bacteremia possibly due to CLABSI, encephalopathy due to sepsis, clavicular fracture Infectious disease has been consulted this mrn, line has been removed She is on vancomycin, we'll continue same ECHO is pending - Constitutional Vitals: Temp Pulse Resp BP Pulse Ox 98.0 F 66 18 82/51 93 01/01/18 11:02 01/01/18 11:02 01/01/18 11:02 01/01/18 11:02 01/01/18 11:02 General appearance: Present: A&O X 2 (AAOX2, to place and person only), no acute distress - Head Head exam: Present: atraumatic, normocephalic - Eye Eye exam: Present: PERRL, conjuntiva pink, sclera anicteric Pupils: Present: PERRL - ENT ENT exam: Present: mucous membranes moist - Neck Neck exam general surgery: Present: normal inspection - Respiratory Respiratory exam: Present: CTAB Additional comments: Chest wall dressing - Cardiovascular Cardiovascular exam: Present: RRR, +S1, +S2. Absent: diastolic murmur, gallop, rubs, systolic murmur - GI/Abdominal GI/Abdominal exam: Present: normal bowel sounds, soft, no peritoneal signs. Absent: distended, tenderness - Extremities Exam Extremities exam: Present: warm, radial pulses palpable and symmetrical. Absent : calf tenderness, cyanotic, pedal edema - Neurological Exam Neurological exam: Present: alert, CN II-XII intact, oriented X3, no focal deficits. Absent: pronater drift, facial droop, speech deficit - Skin Skin exam: Present: dry Internal Medicine: Result - Labs CBC & Chem 7: 12/31/17 08:44 12/31/17 08:44 - ABG Interpretation ABG results: PT/INR, D-dimer PT 15.0 Seconds (9.4-12.1) H 12/22/17 20:26 - Impressions Impressions Brain MRI 12/31/17 11:48 IMPRESSION: 1. No acute infarct, intracranial hemorrhage, or significant mass effect. 2. Chronic small vessel ischemic white matter disease and cerebral volume loss. D/ / 12/31/2017 14:45:11 Ayaan Gill MD / [facility]sey Interpreting Provider: Ayaan Gill MD Insertion Tunneled Catheter 01/01/18 00:00 IMPRESSION: Tunneled hemodialysis catheter removal secondary to bacteremia and concern for catheter infection. No immediate complications. D/ / Alvarado Kurtz MD / Alvarado Kurtz MD Interpreting Provider: Alvarado Kurtz MD - VTE Documentation of Mechanical Device: Intermittent pneumatic compression device Consult Discharge Plan - Plan Referrals: Rashawn Michaels MD [Primary Care Provider] -
[2018-01-02 06:19] LABS: Hemoglobin 9.2 g/dL (11.5-15.4)
[2018-01-02 06:20] LABS: Basophils % 0.1 %; Eosinophils # 0.1 K/mcL (0.0-0.6); Eosinophils % 1.9 %; Hematocrit 28.2 % (35.3-44.9); Immature Granulocytes % 1.3 % (0-4); Immature Platelets 4.4 % (1.1-6.1); Lymphocytes # 0.9 K/mcL (0.6-4.6); Lymphocytes % 12.4 %; Mean Corpuscular HGB Conc 32.6 g/dL (31.6-35.5); Mean Corpuscular Hemoglobin 33.6 pg (28.0-33.3); Mean Corpuscular Volume 102.9 fL (83.0-100.0); Mean Platelet Volume 11.2 fL (9.4-12.4); Monocytes # 0.6 K/mcL (0.0-1.3); Monocytes % 8.1 %; Neutrophils # 5.5 K/mcL (1.6-8.9); Nucleated Red Blood Cells 0.7 /100 WBC (0); Red Blood Count 2.74 M/mcL (3.82-4.97); Red Cell Distribution Width 18.2 % (11.5-14.5); Segmented Neutrophils % 76.2 %
[2018-01-02 06:21] LABS: Platelet Count 48 K/mcL (140-400)
[2018-01-02 06:31] LABS: Calcium 8.5 mg/dL (8.6-10.3); Potassium 4.4 mEq/L (3.5-5.1)
[2018-01-02] MEDS: Budesonide/Formoterol 160/4.5 MDI IH SCH ×2 (07:40→19:52)
[2018-01-02] MEDS: Insulin LISPRO 300 UNITS/3 ML VIAL SQ SCH ×4 (08:42→23:41)
[2018-01-02] MEDS: Calcium Acetate 667 MG CAPSULE PO SCH ×3 (08:43→17:58)
[2018-01-02] MEDS: amLODIPine 5 MG TABLET PO SCH (08:43)
[2018-01-02] MEDS: Folic Acid 1 MG TABLET PO SCH (08:49)
[2018-01-02] MEDS: Cholecalciferol (D-3) 1,000 UNIT TABLET PO SCH (08:49)
--- NOTE | 2018-01-02 10:27 | Nephrology Progress Note ---
Date of Encounter: 01/02/18 Time of Encounter: 10:19 - Assessment and Plan (1) ESRD (end stage renal disease) on dialysis Current Visit: Yes Status: Acute HD MWF. Renal vitamins. Renal dose medications. Renal diet. Scr 5.18 and GFR 8. K 4.4, no signs of uremia. Will trend labs and will try to hold HD until Sunday morning if possible, in order to place a new HD line. (2) Bacteremia Current Visit: Yes Status: Acute Per primary team. (3) Pancytopenia Current Visit: Yes Status: Chronic Hematology/oncology on board for recommendations. (4) UTI (urinary tract infection) Current Visit: Yes Status: Acute Improving with antibiotics. Does have Alatorre catheter in place. Qualifiers: Qualified Code(s): N30.00 - Acute cystitis without hematuria Subjective Principal diagnosis: Chronic dialysis Interval history: Pt seen and examined, denies CP/SOB. Admits to feeling fatigued, did not sleep well last night. Objective - Vital Signs Vital signs: Vital Signs Temp Pulse Resp BP Pulse Ox 01/02/18 08:22 98.0 F 68 24 91/58 90 01/02/18 07:40 15 94 01/02/18 04:48 97.4 F L 66 15 129/70 93 01/02/18 00:37 97.8 F 67 15 90/56 94 01/01/18 21:55 92 01/01/18 21:52 97.7 F 67 18 104/65 89 01/01/18 15:19 97.9 F 72 19 96/61 94 01/01/18 11:02 98.0 F 66 18 82/51 93 Intake and Output 01/01/18 01/02/18 01/02/18 23:59 07:59 15:59 Intake Total 700 / 700 300 / 300 60 / 60 Output Total 0 / 0 Balance 700 / 700 300 / 300 60 / 60 Intake: Oral 700 / 700 300 / 300 60 / 60 Output: Urine 0 / 0 Other: Weight 83.8 kg Blood Glucose* 118 123 Patient Weight 01/02/18 23:59 Weight 83.8 kg - General Appearance General appearance: Present: chronically ill, frail EENT: Present: ATNC, hearing intact, vision intact Neck: Present: supple Respiratory: Present: clear Cardiology: Present: no edema, normal S1, normal S2 Gastrointestinal: Present: normoactive bowel sounds, no tenderness Integumentary: Present: no rash, warm and dry Neurologic: Present: no focal deficit, alert and oriented x3 Psychiatric: Present: mood/affect appropriate, cooperative - Lab 01/02/18 06:00 01/02/18 06:00 Most recent lab results Calcium 8.5 mg/dL (8.6-10.3) L 01/02/18 06:00 Phosphorus 7.3 mg/dL (2.7-4.5) H 12/23/17 06:11 Magnesium 2.1 mg/dL (1.6-2.6) 12/23/17 06:11 - VTE Documentation of Mechanical Device: Intermittent pneumatic compression device Consult Discharge Plan - Plan Referrals: Rashawn Michaels MD [Primary Care Provider] -
--- NOTE | 2018-01-02 11:24 | Infectious Disease Progress No ---
Date of Encounter: 01/02/18 Time of Encounter: 11:22 - Assessment and Plan (1) Severe sepsis Current Visit: Yes Status: Acute The patient had two SIRS criteria plus AMS and lactic acidosis on 12/26/17. She also had leukopenia on admission, which appears chronic, although her WBC is now normal. Likely secondary to bacteremia and dialysis catheter infection. Improved. Afebrile since 12/27/17. Tachycardia has resolved. WBC normal with normal diff. Thrombocytopenia improved. Peripheral blood cultures drawn 12/26/17 are positive 2/2 sets for MRSA. Repeat peripheral blood cultures drawn 12/29/17 are positive 2/2 sets as well. lood cultures drawn 12/31/17 from the patient's Perma-cath are positive for MRSA. Repeat blood cultures drawn 01/02/18 are pending x 2 sets. (2) Bacteremia Current Visit: Yes Status: Acute Causative organism: MRSA. Peripheral blood cultures drawn 12/26/17 are positive 2/2 sets for MRSA. Repeat peripheral blood cultures drawn 12/29/17 are positive 2/2 sets as well. Blood cultures drawn 12/31/17 from the patient's Perma-cath are positive for MRSA. Additional peripheral blood cultures drawn 01/02/18 are pending x 2 sets. Status post perma-cath removal 01/01/18. Complicated due to persistent bacteremia and seeding of the kidneys. No endocarditis stigmata noted on exam. The patient has one major and two minor Modified Salazar's Criteria. Rheumatoid factor elevated at 16. TTE negative for endocarditis. May need to consider [facility] prior to discharge. Continue Vancomycin IV. Pharmacy to dose. Goal trough ~15. Duration of treatment depends on the clinical picture, but likely 4-6 weeks. Monitor for drug toxicity and dose-adjust antibiotics. (3) UTI (urinary tract infection) Current Visit: Yes Status: Acute Causative organism: MRSA. Likely seeding from bacteremia. Continue Vancomycin as above. Qualifiers: Urinary tract infection type: acute cystitis Hematuria presence: without hematuria Qualified Code(s): N30.00 - Acute cystitis without hematuria (4) Acute encephalopathy Current Visit: Yes Status: Resolved Likely secondary to sepsis. CT head negative in the ER and 12/26/17. Appears improved, but still altered. Not sure what the patient's baseline status is. Continue to monitor closely. (5) Pleural effusion, left Current Visit: No Status: Resolved Likely secondary to ESRD and ESLD. Management per the primary team. (6) Acute respiratory failure with hypoxia Current Visit: No Status: Resolved Likely secondary to pulmonary edema and pleural effusion. Appears improved. Further management per the primary team. (7) Hypoxemia Current Visit: Yes Status: Resolved (8) Pancytopenia Current Visit: Yes Status: Chronic Evaluated by Hem/Onc during last hospital stay. Likely secondary to ESLD. May need BMB as outpatient if worsens/does not get better. Hem/Onc consulted and following. Leukopenia and thrombocytopenia improved. Transfusion parameters per the primary and Hem/Onc teams. (9) Closed compression fracture of L1 lumbar vertebral body Current Visit: Yes Status: Acute Secondary to fall. CT scans show T12 and L1 compression fracture. Dr. Garcia consulted. No surgical intervention. Further management per the primary and ortho teams. (10) Fall Current Visit: Yes Status: Acute Qualifiers: Encounter type: initial encounter Qualified Code(s): W19.XXXA - Unspecified fall, initial encounter (11) Liver cirrhosis secondary to nonalcoholic steatohepatitis (HENRIQUEZ) Current Visit: Yes Status: Chronic MELD score 31. Recommend transfer to facility for hepatology evaluation. (12) Diabetes mellitus type 2 in obese Current Visit: No Status: Chronic (13) Hypersplenism Current Visit: Yes Status: Chronic (14) ESRD (end stage renal disease) on dialysis Current Visit: Yes Status: Acute [facility] consulted and following. Dose-adjust antibiotics for HD status. - Subjective Interval history: Seen and examined. No acute events noted overnight. Patient's mental status continues to wax and wane. Appears more alert, but very slow to answer questions and follows commands. Denies fevers or chills or rigors. Denies chest pain or shortness of breath. Denies nausea or vomiting or diarrhea, but states she does not feel like eating at this time. Denies abdominal pain. Alatorre catheter remains patent. Infect Dis PN-Objective Data - Labs CBC & Chem 7: 01/02/18 06:00 01/02/18 06:00 Labs: Laboratory Results - last 24 hr 01/01/18 01/01/18 01/01/18 07:13 11:01 15:16 WBC RBC Hgb Hct MCV MCH MCHC RDW Plt Count MPV Immature Gran % Seg Neutrophils % Lymphocytes % Monocytes % Eosinophils % Basophils % Neutrophils # Lymphocytes # Monocytes # Eosinophils # Basophils # Nucleated RBCs/100 WBC Immature Plt Fraction Sodium Potassium Chloride Carbon Dioxide BUN Creatinine Est GFR ( Amer) Est GFR (Non-Af Amer) BUN/Creatinine Ratio Glucose POC Glucose 143 H 136 H 162 H Calculated Osmolality Calcium Random Vancomycin Rheumatoid Factor 01/01/18 01/02/18 01/02/18 22:11 06:00 06:00 WBC 7.2 D RBC 2.74 L Hgb 9.2 L Hct 28.2 L MCV 102.9 H MCH 33.6 H MCHC 32.6 RDW 18.2 H Plt Count 48 L D MPV 11.2 Immature Gran % 1.3 Seg Neutrophils % 76.2 Lymphocytes % 12.4 Monocytes % 8.1 Eosinophils % 1.9 Basophils % 0.1 Neutrophils # 5.5 Lymphocytes # 0.9 Monocytes # 0.6 Eosinophils # 0.1 Basophils # 0.0 Nucleated RBCs/100 WBC 0.7 H Immature Plt Fraction 4.4 Sodium 130 L Potassium 4.4 Chloride 97 L Carbon Dioxide 21 L BUN 75 H Creatinine 5.18 H Est GFR ( Amer) 10 L Est GFR (Non-Af Amer) 8 L BUN/Creatinine Ratio 14 Glucose 129 H POC Glucose 118 H Calculated Osmolality 294 Calcium 8.5 L Random Vancomycin Rheumatoid Factor 01/02/18 01/02/18 06:00 06:00 WBC RBC Hgb Hct MCV MCH MCHC RDW Plt Count MPV Immature Gran % Seg Neutrophils % Lymphocytes % Monocytes % Eosinophils % Basophils % Neutrophils # Lymphocytes # Monocytes # Eosinophils # Basophils # Nucleated RBCs/100 WBC Immature Plt Fraction Sodium Potassium Chloride Carbon Dioxide BUN Creatinine Est GFR ( Amer) Est GFR (Non-Af Amer) BUN/Creatinine Ratio Glucose POC Glucose Calculated Osmolality Calcium Random Vancomycin 22 Rheumatoid Factor 16 H Cultures: Cultures 12/29/17 18:58 Blood Culture - Final Peripheral Venipuncture Methicillin Resistant S.aureus 12/31/17 06:15 Blood Culture - Preliminary Central Venous Catheter Gram Positive Cocci 12/29/17 18:47 Blood Culture - Preliminary Peripheral Venipuncture Gram Positive Cocci 12/31/17 06:30 Blood Culture - Preliminary Central Venous Catheter Gram Positive Cocci 12/26/17 21:49 Blood Culture - Final Peripheral Venipuncture Methicillin Resistant S.aureus 12/26/17 21:10 Blood Culture - Final Peripheral Venipuncture Methicillin Resistant S.aureus 12/26/17 22:10 Urine Culture - Final Urine,Alatorre Port Methicillin Resistant S.aureus Serology 12/31/17 12/29/17 12/26/17 Range/Units 06:30 18:58 22:10 Ur Specimen Adequacy See below A Urine Color Red A (Yellow) Urine Clarity Cloudy A (Clear) Urine pH 7.0 (5.0-8.0) pH Units Ur Specific [place] 1.017 (1.010-1.025) Urine Protein 100 H (Neg-Trace) mg/dL Urine Glucose (UA) Normal (Normal) mg/dL Urine Ketones Negative (Negative) mg/dL Urine Blood Large H (Negative) Urine Nitrite Negative (Negative) Urine Bilirubin Small H (Negative) Urine Urobilinogen Normal (Normal) mg/dL Ur Leukocyte Esterase Small H (Negative) Urine Microscopic RBC TNTC H (0-3) per hpf Urine Microscopic WBC 5-15 H (0-3) per hpf Ur Squamous Epith Cells Moderate H (None-Few) per lpf Ur Transition Epith Cell Few (None-Few) per hpf Urine Bacteria Few (None-Few) per hpf Ur Culture Indicated? YES A (NO) A. baumannii (PCR) Not Detected Not Detected (Not Detect) Jazmine albicans (PCR) Not Detected Not Detected (Not Detect) C. glabrata (PCR) Not Detected Not Detected (Not Detect) C. krusei (PCR) Not Detected Not Detected (Not Detect) C. parapsilosis (PCR) Not Detected Not Detected (Not Detect) C. tropicalis (PCR) Not Detected Not Detected (Not Detect) Enterobacteriac sp PCR Not Detected Not Detected (Not Detect) E. cloacae complex PCR Not Detected Not Detected (Not Detect) Enterococcus sp PCR Not Detected Not Detected (Not Detect) E. coli (PCR) Not Detected Not Detected (Not Detect) H. influenzae (PCR) Not Detected Not Detected (Not Detect) Hep Bs Antigen (Nonreactive) Hep Bs Antibody mIU/mL Klebsiella oxytoca PCR Not Detected Not Detected (Not Detect) Klebsiella pneumoniae Not Detected Not Detected (Not Detect) List. monocytogenes PCR Not Detected Not Detected (Not Detect) N. meningitidis (PCR) Not Detected Not Detected (Not Detect) Proteus species (PCR) Not Detected Not Detected (Not Detect) Serratia marcescens PCR Not Detected Not Detected (Not Detect) Staphylococcus sp PCR DETECTED A DETECTED A (Not Detect) Staph aureus (PCR) DETECTED A DETECTED A (Not Detect) mecA-Methicil Res Gene DETECTED A DETECTED A (Not Detect) Streptococcus sp PCR Not Detected Not Detected (Not Detect) Group A Strep DNA Not Detected Not Detected (Not Detect) Group B Strep (PCR) Not Detected Not Detected (Not Detect) Strep pneumoniae (PCR) Not Detected Not Detected (Not Detect) P. aeruginosa (PCR) Not Detected Not Detected (Not Detect) Jaimee/B-Vanco Res Genes N/A Not Detected (Not Detect) KPC (blaKPC) Detect PCR N/A Not Detected (Not Detect) 12/26/17 12/24/17 Range/Units 21:10 06:36 Ur Specimen Adequacy Urine Color (Yellow) Urine Clarity (Clear) Urine pH (5.0-8.0) pH Units Ur Specific [place] (1.010-1.025) Urine Protein (Neg-Trace) mg/dL Urine Glucose (UA) (Normal) mg/dL Urine Ketones (Negative) mg/dL Urine Blood (Negative) Urine Nitrite (Negative) Urine Bilirubin (Negative) Urine Urobilinogen (Normal) mg/dL Ur Leukocyte Esterase (Negative) Urine Microscopic RBC (0-3) per hpf Urine Microscopic WBC (0-3) per hpf Ur Squamous Epith Cells (None-Few) per lpf Ur Transition Epith Cell (None-Few) per hpf Urine Bacteria (None-Few) per hpf Ur Culture Indicated? (NO) A. baumannii (PCR) Not Detected (Not Detect) Jazmine albicans (PCR) Not Detected (Not Detect) C. glabrata (PCR) Not Detected (Not Detect) C. krusei (PCR) Not Detected (Not Detect) C. parapsilosis (PCR) Not Detected (Not Detect) C. tropicalis (PCR) Not Detected (Not Detect) Enterobacteriac sp PCR Not Detected (Not Detect) E. cloacae complex PCR Not Detected (Not Detect) Enterococcus sp PCR Not Detected (Not Detect) E. coli (PCR) Not Detected (Not Detect) H. influenzae (PCR) Not Detected (Not Detect) Hep Bs Antigen Nonreactive (Nonreactive) Hep Bs Antibody 39.72 mIU/mL Klebsiella oxytoca PCR Not Detected (Not Detect) Klebsiella pneumoniae Not Detected (Not Detect) List. monocytogenes PCR Not Detected (Not Detect) N. meningitidis (PCR) Not Detected (Not Detect) Proteus species (PCR) Not Detected (Not Detect) Serratia marcescens PCR Not Detected (Not Detect) Staphylococcus sp PCR DETECTED A (Not Detect) Staph aureus (PCR) DETECTED A (Not Detect) mecA-Methicil Res Gene DETECTED A (Not Detect) Streptococcus sp PCR Not Detected (Not Detect) Group A Strep DNA Not Detected (Not Detect) Group B Strep (PCR) Not Detected (Not Detect) Strep pneumoniae (PCR) Not Detected (Not Detect) P. aeruginosa (PCR) Not Detected (Not Detect) Jaimee/B-Vanco Res Genes N/A (Not Detect) KPC (blaKPC) Detect PCR N/A (Not Detect) - Impressions Impressions Insertion Tunneled Catheter 01/01/18 00:00 IMPRESSION: Tunneled hemodialysis catheter removal secondary to bacteremia and concern for catheter infection. No immediate complications. D/ / Alvarado Kurtz MD / Alvarado Kurtz MD Interpreting Provider: Alvarado Kurtz MD Echocardiogram 01/01/18 09:01 Impressions: LVEF 60%. Indeterminate diastolic function. Normal right ventricular structure and function. Mild tricuspid regurgitation. Mild pulmonary hypertension. There is a circumferential small to moderate pericardial effusion present most prominent along the inferior and lateral borders of the LV. There is no echocardiographic evidence of tamponade. Recommend repeat echo as clinically appropriate. Left Ventricular Wall Motion: Rest Echo Findings All wall segments showed normal motion. Findings: Study Quality * Technically adequate exam. ECG Findings * Normal sinus rhythm. Left Ventricle * LVEF 60%. * Normal LV chamber size, wall thickness and function. * Indeterminate diastolic function. Right Ventricle * Normal right ventricular structure and function. Left Atrium * Mildly dilated left atrium. Right Atrium * Normal right atrial size. Mitral Valve * Normal mitral valve structure. * No mitral stenosis. * Mild mitral annular calcification * Trace mitral regurgitation. Aortic Valve * No aortic regurgitation. * Aortic valve not well visualized. * No aortic stenosis by Doppler. Tricuspid Valve * Normal tricuspid valve structure. * Mild tricuspid regurgitation. * RVSP 37 mmHg. Pulmonic Valve * Pulmonic valve is not well visualized. * No pulmonic stenosis. * Trace pulmonic regurgitation. Pulmonary Artery * Pulmonary artery not well visualized. Aorta * Normally sized aortic root. Pericardium * There is a circumferential small to moderate pericardial effusion present most prominent along the inferior and lateral borders of the LV. * There is no echocardiographic evidence of tamponade. Interatrial Septum * No evidence of PFO by color Doppler. IVC * The IVC is dilated. * Sniff not well obtained. Exam - Constitutional Vitals: Temp Pulse Resp BP Pulse Ox 97.9 F 83 22 90/61 92 01/02/18 11:02 01/02/18 11:02 01/02/18 11:02 01/02/18 11:02 01/02/18 11:02 General appearance: cooperative, no acute distress, obese - Head Head exam: Present: atraumatic, normal inspection, normocephalic - Eye Eye exam: Present: EOMI, normal appearance, PERRL Pupils: Present: normal accommodation Additional comments: No subconjunctival hemorrhage noted. - ENT ENT exam: Present: mucous membranes dry - Neck Neck exam: Present: normal inspection - Respiratory Respiratory exam: Present: CTAB. Absent: rales, respiratory distress, rhonchi, wheezes - Cardiovascular Cardiovascular exam: Present: RRR, +S1, +S2 - GI/Abdominal GI/Abdominal exam: Present: distended (Obese), normal bowel sounds, soft. Absent: tenderness Additional comments: Alatorre catheter noted to be draining small amount of dark yellow urine. - Extremities Exam Extremities exam: Present: normal inspection. Absent: joint swelling, pedal edema, tenderness - Neurological Exam Neurological exam: Present: alert, no focal deficits. Absent: oriented X3 ( Oriented to person and place only.), facial droop Additional comments: Follows most commands. Slow to respond to questions. - Skin Skin exam: Present: dry, intact, normal color, warm - VTE Documentation of Mechanical Device: Intermittent pneumatic compression device Consult Discharge Plan - Plan Referrals: Rashawn Michaels MD [Primary Care Provider] - - Attending Attestation I examined this patient and my medical decision-making was reviewed with the Resident Physician. I agree with the documented findings, disposition and treatment plan as described except to the extent set forth below.
[2018-01-02 11:41] LABS: Albumin 2.5 g/dL (3.5-5.7); Albumin/Globulin Ratio 0.7 (1.1-2.2); Bilirubin,Direct 1.6 mg/dL (0.0-0.2); Bilirubin,Indirect 1.6 mg/dL (0.0-1.2); Bilirubin,Total 3.2 mg/dL (0.3-1.0); Globulin 3.7 g/dL (2.4-3.5); Total Protein 6.2 g/dL (6.4-8.9)
--- NOTE | 2018-01-02 12:58 | Internal Med Progress Note ---
Date of Encounter: 01/02/18 Time of Encounter: 12:56 - Assessment and plan (1) DVT prophylaxis Current Visit: Yes Status: Acute Assessment and plan: EPCDs due to low PLT (2) Hypertension Current Visit: Yes Status: Chronic Assessment and plan: Continue current meds Qualifiers: Hypertension type: essential hypertension Qualified Code(s): I10 - Essential (primary) hypertension (3) Pancytopenia Current Visit: Yes Status: Chronic Assessment and plan: chronic, due to liver cirrhosis, oncology eval in the past and present, continue to monitor Transfuse to Hb <7 Transfuse for PLT <10,000, or bleeding Continue to monitor (4) Fracture, clavicle closed, shaft Current Visit: Yes Status: Acute Assessment and plan: Imaging showed comminuted fracture sternal end right clavicle Orthopedics with recommendations for medical management without any surgical intervention at this time. Qualifiers: Encounter type: initial encounter Fracture alignment: nondisplaced Laterality: right Qualified Code(s): S42.024A - Nondisplaced fracture of shaft of right clavicle, initial encounter for closed fracture (5) T12 compression fracture Current Visit: Yes Status: Acute Assessment and plan: CT of thoracic spine showed mild superior endplate compression fracture of T12 appears acute. Orthopedic spine specialists consulted with recommendations for medical management Physical therapy consulted for evaluation for nursing facility placement- for ECF upon discharge (6) Diabetes mellitus Current Visit: Yes Status: Chronic Assessment and plan: Continue insulin sliding scale. Accuchecks. 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 Repeat peripheral blood cultures drawn 12/29/17 are positive 2/2 sets as well. Blood cultures drawn 12/31/17 from the patient's Perma-cath are positive for MRSA. Status post perma-cath removal 01/01/18. Complicated due to persistent bacteremia and seeding of the kidneys. TTE noted, no vegetations Repeat blood culture done today 01/02 (9) UTI (urinary tract infection) Current Visit: Yes Status: Acute Assessment and plan: Patient urinary culture positive for MRSA Patient continues to have confusion secondary to UTI/bacteremia Continue IV vancomycin as above Qualifiers: Urinary tract infection type: acute cystitis Hematuria presence: without hematuria Qualified Code(s): N30.00 - Acute cystitis without hematuria (10) Acute encephalopathy Current Visit: Yes Status: Resolved Assessment and plan: Resolved,possibly due to severe sepsis (11) Hypersplenism Current Visit: Yes Status: Chronic Assessment and plan: chronic,stable, due to liver cirrhosis (12) Liver cirrhosis secondary to nonalcoholic steatohepatitis ([facility]RIQUEZ) Current Visit: Yes Status: Chronic Assessment and plan: chronic, continue to monitor Ensure atleast 2 BM per day. Start on lactulose (13) Severe sepsis Current Visit: Yes Status: Acute Assessment and plan: Secondary to MRSA CLABSI Afebrile since 12/27/17. Tachycardia has resolved. WBC up to 3.9. AMS and lactic acidosis resolved. Continue Vanco (14) Goals of care, counseling/discussion Current Visit: Yes Status: Acute Assessment and plan: Patient with very poor insight, wants everything done including liver transplant if necessary. She is however, also disoriented to time, we will re- address PRN. - Time Spent With Patient Total time spent is greater than 50% in coordination of care (as documented) at patient's floor/unit and/or counseling patient: - Subjective Interval history: Seen and evaluated at bedside 72 F with known Cirrhosis and ESRD on HD, Pancytpenia, being managed for Severe Sepsis due to UTI and MRSA bacteremia possibly due to CLABSI, encephalopathy due to sepsis, clavicular fracture Infectious disease has been consulted ,appreciate recommendations Blood cultures drawn today 01/02 is pending She is on vancomycin, random vanco level 22, we'll continue same ECHO done 01/01/18 showed pericardial effusion, preserved EF,no WMA,no vegetations - Constitutional Vitals: Temp Pulse Resp BP Pulse Ox 97.9 F 83 22 90/61 92 01/02/18 11:02 01/02/18 11:02 01/02/18 11:02 01/02/18 11:02 01/02/18 11:02 General appearance: Present: A&O X 2 (AAOX2, to place and person only), no acute distress - Head Head exam: Present: atraumatic, normocephalic - Eye Eye exam: Present: PERRL, scleral icterus, conjuntiva pink Pupils: Present: PERRL - Neck Neck exam general surgery: Present: supple, trachea midline. Absent: lymphadenopathy - Respiratory Respiratory exam: Present: CTAB. Absent: accessory muscle use, rales, rhonchi, wheezes Additional comments: R chest wall dressing clean and dry - Cardiovascular Cardiovascular exam: Present: RRR, +S1, +S2. Absent: diastolic murmur, gallop, rubs, systolic murmur - GI/Abdominal GI/Abdominal exam: Present: normal bowel sounds, soft, no peritoneal signs. Absent: distended, tenderness - Extremities Exam Extremities exam: Present: warm, radial pulses palpable and symmetrical. Absent : calf tenderness, cyanotic, pedal edema - Neurological Exam Neurological exam: Present: alert, CN II-XII intact, no focal deficits. Absent : oriented X3, pronater drift, facial droop, speech deficit - Skin Skin exam: Present: dry, intact Internal Medicine: Result - Labs CBC & Chem 7: 01/02/18 06:00 01/02/18 06:00 Labs: Short CBC 01/02/18 Range/Units 06:00 WBC 7.2 D (4.3-11.1) K/mcL Hgb 9.2 L (11.5-15.4) g/dL Hct 28.2 L (35.3-44.9) % Plt Count 48 L D (140-400) K/mcL Neutrophils # 5.5 (1.6-8.9) K/mcL BMP 01/02/18 06:00 Sodium 130 L Potassium 4.4 Chloride 97 L Carbon Dioxide 21 L BUN 75 H Creatinine 5.18 H Glucose 129 H Calcium 8.5 L Liver Function 01/02/18 Range/Units 06:00 Total Bilirubin 3.2 H (0.3-1.0) mg/dL Direct Bilirubin 1.6 H (0.0-0.2) mg/dL AST 20 (13-39) Units/L ALT 11 (7-52) Units/L Alkaline Phosphatase 61 (34-104) Units/L Albumin 2.5 L (3.5-5.7) g/dL - ABG Interpretation ABG results: PT/INR, D-dimer PT 15.0 Seconds (9.4-12.1) H 12/22/17 20:26 - Impressions Impressions Echocardiogram 01/01/18 09:01 Impressions: LVEF 60%. Indeterminate diastolic function. Normal right ventricular structure and function. Mild tricuspid regurgitation. Mild pulmonary hypertension. There is a circumferential small to moderate pericardial effusion present most prominent along the inferior and lateral borders of the LV. There is no echocardiographic evidence of tamponade. Recommend repeat echo as clinically appropriate. Left Ventricular Wall Motion: Rest Echo Findings All wall segments showed normal motion. Findings: Study Quality * Technically adequate exam. ECG Findings * Normal sinus rhythm. Left Ventricle * LVEF 60%. * Normal LV chamber size, wall thickness and function. * Indeterminate diastolic function. Right Ventricle * Normal right ventricular structure and function. Left Atrium * Mildly dilated left atrium. Right Atrium * Normal right atrial size. Mitral Valve * Normal mitral valve structure. * No mitral stenosis. * Mild mitral annular calcification * Trace mitral regurgitation. Aortic Valve * No aortic regurgitation. * Aortic valve not well visualized. * No aortic stenosis by Doppler. Tricuspid Valve * Normal tricuspid valve structure. * Mild tricuspid regurgitation. * RVSP 37 mmHg. Pulmonic Valve * Pulmonic valve is not well visualized. * No pulmonic stenosis. * Trace pulmonic regurgitation. Pulmonary Artery * Pulmonary artery not well visualized. Aorta * Normally sized aortic root. Pericardium * There is a circumferential small to moderate pericardial effusion present most prominent along the inferior and lateral borders of the LV. * There is no echocardiographic evidence of tamponade. Interatrial Septum * No evidence of PFO by color Doppler. IVC * The IVC is dilated. * Sniff not well obtained. - VTE Documentation of Mechanical Device: Intermittent pneumatic compression device Consult Discharge Plan - Plan Referrals: Rashawn Michaels MD [Primary Care Provider] -
[2018-01-02] MEDS ORDERED: Vancomycin 250 MG in 0.9 % Sodium Chloride Mini Bag 100 ML IVPB ONE (16:00)
[2018-01-02] MEDS: Lactulose Oral Soln 20 GM/30 ML UDC PO SCH (23:57)
[2018-01-03 01:16] LABS: Acinetobacter baumannii by PCR Not Detected (Not Detect); Candida albicans by PCR Not Detected (Not Detect); Candida glabrata by PCR Not Detected (Not Detect); Candida krusei by PCR Not Detected (Not Detect); Candida parapsilosis by PCR Not Detected (Not Detect); Candida tropicalis by PCR Not Detected (Not Detect); Enterococcus by PCR Not Detected (Not Detect); Escherichia coli by PCR Not Detected (Not Detect); Klebsiella oxytoca by PCR Not Detected (Not Detect); Klebsiella pneumoniae by PCR Not Detected (Not Detect); Pseudomonas aeruginosa by PCR Not Detected (Not Detect); Serratia marcescens by PCR Not Detected (Not Detect); Staphylococcus aureus by PCR ***DETECTED*** (Not Detect); Streptococcus agalactiae(B)PCR Not Detected (Not Detect); Streptococcus by PCR Not Detected (Not Detect); Streptococcus pneumoniae PCR Not Detected (Not Detect); Streptococcus pyogenes (A) PCR Not Detected (Not Detect); blaKPC Carbapenem-Resist Gene Not Detected (Not Detect); mecA Methicillin-Resist Gene ***DETECTED*** (Not Detect); vanA/B Vancomycin-Resist Genes Not Detected (Not Detect)
[2018-01-03 08:53] LABS: Basophils % 0.3 %; Eosinophils % 1.2 %; Mean Corpuscular Volume 101.7 fL (83.0-100.0)
[2018-01-03 08:55] LABS: Eosinophils # 0.1 K/mcL (0.0-0.6); Hematocrit 29.5 % (35.3-44.9); Hemoglobin 9.9 g/dL (11.5-15.4); Immature Platelets 3.7 % (1.1-6.1); Lymphocytes # 1.1 K/mcL (0.6-4.6); Lymphocytes % 9.2 %; Mean Corpuscular HGB Conc 33.6 g/dL (31.6-35.5); Mean Corpuscular Hemoglobin 34.1 pg (28.0-33.3); Mean Platelet Volume 12.4 fL (9.4-12.4); Monocytes # 0.7 K/mcL (0.0-1.3); Red Cell Distribution Width 18.6 % (11.5-14.5); Segmented Neutrophils % 82.3 %
[2018-01-03 08:57] LABS: Neutrophils # 9.5 K/mcL (1.6-8.9); Platelet Count 72 K/mcL (140-400)
[2018-01-03 09:09] LABS: Calcium 8.4 mg/dL (8.6-10.3); Potassium 4.9 mEq/L (3.5-5.1)
[2018-01-03] MEDS: amLODIPine 5 MG TABLET PO SCH (09:12)
[2018-01-03] MEDS: Folic Acid 1 MG TABLET PO SCH (09:12)
[2018-01-03] MEDS: Calcium Acetate 667 MG CAPSULE PO SCH ×3 (09:12→17:09)
[2018-01-03] MEDS: Lactulose Oral Soln 20 GM/30 ML UDC PO SCH ×2 (09:12→20:48)
[2018-01-03] MEDS: Insulin LISPRO 300 UNITS/3 ML VIAL SQ SCH ×4 (09:13→20:48)
[2018-01-03] MEDS: Cholecalciferol (D-3) 1,000 UNIT TABLET PO SCH (09:13)
--- NOTE | 2018-01-03 09:37 | Nephrology Progress Note ---
Date of Encounter: 01/03/18 Time of Encounter: 09:33 - Assessment and Plan (1) ESRD (end stage renal disease) on dialysis Current Visit: Yes Status: Acute HD MWF. Renal vitamins. Renal dose medications. Renal diet. Scr 5.85 and GFR 7. K 4.9, no signs of uremia. IR consult placed for new line today. (2) Bacteremia Current Visit: Yes Status: Acute Per primary team. (3) Pancytopenia Current Visit: Yes Status: Chronic Hematology/oncology on board for recommendations. (4) UTI (urinary tract infection) Current Visit: Yes Status: Acute WBC 11.5 up from 7.2 yesterday. Does have Alatorre catheter in place. Qualifiers: Urinary tract infection type: acute cystitis Hematuria presence: without hematuria Qualified Code(s): N30.00 - Acute cystitis without hematuria Subjective Principal diagnosis: Chronic dialysis Interval history: Pt seen and examined, denies CP/SOB. Admits to feeling fatigued. Objective - Vital Signs Vital signs: Vital Signs Temp Pulse Resp BP Pulse Ox 01/03/18 06:31 97.7 F 83 12 94/65 94 01/03/18 05:45 97.8 F 93 14 86/53 99 01/03/18 00:43 97.3 F L 64 14 90/50 95 01/02/18 21:56 97.4 F L 66 15 95/59 100 01/02/18 19:52 16 100 01/02/18 16:34 97.4 F L 85 20 92/63 92 01/02/18 11:02 97.9 F 83 22 90/61 92 Intake and Output 01/02/18 01/03/18 01/03/18 23:59 07:59 15:59 Intake Total 0 / 0 236 / 236 Output Total 300 / 300 100 / 100 Balance -300 / -300 -100 / -100 236 / 236 Intake: Oral 0 / 0 236 / 236 Output: Urine 300 / 300 100 / 100 Other: Meal Breakfast Percent of Meal Consumed 25% Weight 84.6 kg Blood Glucose* 129 150 Patient Weight 01/03/18 23:59 Weight 84.6 kg - General Appearance General appearance: Present: chronically ill, fatigue, frail EENT: Present: ATNC, hearing intact, vision intact Respiratory: Present: clear Cardiology: Present: no edema, regular rate, regular rhythm, normal S1, normal S2 Gastrointestinal: Present: normoactive bowel sounds, no tenderness, no guarding Integumentary: Present: no rash, warm and dry Neurologic: Present: no focal deficit, alert and oriented x3 Psychiatric: Present: mood/affect appropriate, cooperative - Lab 01/03/18 08:34 01/03/18 08:34 Most recent lab results Calcium 8.4 mg/dL (8.6-10.3) L 01/03/18 08:34 Phosphorus 7.3 mg/dL (2.7-4.5) H 12/23/17 06:11 Magnesium 2.1 mg/dL (1.6-2.6) 12/23/17 06:11 - VTE Documentation of Mechanical Device: Intermittent pneumatic compression device Consult Discharge Plan - Plan Referrals: Rashawn Michaels MD [Primary Care Provider] -
--- NOTE | 2018-01-03 10:12 | Infectious Disease Progress No ---
Date of Encounter: 01/03/18 Time of Encounter: 10:10 - Assessment and Plan (1) Severe sepsis Current Visit: Yes Status: Acute The patient had two SIRS criteria plus AMS and lactic acidosis on 12/26/17. She also had leukopenia on admission, which appears chronic, although her WBC is now normal. Likely secondary to bacteremia and dialysis catheter infection. Improved. Afebrile since 12/27/17. Tachycardia has resolved. WBC slightly elevated this morning with neutrophilic predominance. Thrombocytopenia improved. Peripheral blood cultures drawn 12/26/17 are positive 2/2 sets for MRSA. Repeat peripheral blood cultures drawn 12/29/17 are positive 2/2 sets as well. lood cultures drawn 12/31/17 from the patient's Perma-cath are positive for MRSA. Repeat blood cultures drawn 01/02/18 are positive 1/2 sets. (2) Bacteremia Current Visit: Yes Status: Acute Causative organism: MRSA. Peripheral blood cultures drawn 12/26/17 are positive 2/2 sets for MRSA. Repeat peripheral blood cultures drawn 12/29/17 are positive 2/2 sets as well. Blood cultures drawn 12/31/17 from the patient's Perma-cath are positive for MRSA. Additional peripheral blood cultures drawn 01/02/18 are positive 1/2 sets. Status post perma-cath removal 01/01/18. Complicated due to persistent bacteremia and seeding of the kidneys. No endocarditis stigmata noted on exam. The patient has one major and two minor Modified Salazar's Criteria. Rheumatoid factor elevated at 16. TTE negative for endocarditis. May need to consider AMERICO prior to discharge since the patient's platelet count is improving. Repeat blood cultures x 2 sets now. Continue Vancomycin IV. Pharmacy to dose. Goal trough ~15. Duration of treatment depends on the clinical picture, but likely 4-6 weeks. Monitor for drug toxicity and dose-adjust antibiotics. (3) UTI (urinary tract infection) Current Visit: Yes Status: Acute Causative organism: MRSA. Likely seeding from bacteremia. Continue Vancomycin as above. Qualifiers: Urinary tract infection type: acute cystitis Hematuria presence: without hematuria Qualified Code(s): N30.00 - Acute cystitis without hematuria (4) Acute encephalopathy Current Visit: Yes Status: Resolved Likely secondary to sepsis. CT head negative in the ER and 12/26/17. Appears improved, but still altered. Not sure what the patient's baseline status is. Continue to monitor closely. (5) Pleural effusion, left Current Visit: No Status: Resolved Likely secondary to ESRD and ESLD. Management per the primary team. (6) Acute respiratory failure with hypoxia Current Visit: No Status: Resolved Likely secondary to pulmonary edema and pleural effusion. Appears improved. Further management per the primary team. (7) Hypoxemia Current Visit: Yes Status: Resolved (8) Pancytopenia Current Visit: Yes Status: Chronic Evaluated by Hem/Onc during last hospital stay. Likely secondary to ESLD per Hem /Onc, but wondering if there was an infectious component contributing as well given that her numbers have improved since being on antibiotics. Hem/Onc consulted and following. Leukopenia and thrombocytopenia improved. The patient actually has mild leukocytosis today. Transfusion parameters per the primary and Hem/Onc teams. (9) Closed compression fracture of L1 lumbar vertebral body Current Visit: Yes Status: Acute Secondary to fall. CT scans show T12 and L1 compression fracture. Dr. Garcia consulted. No surgical intervention. Further management per the primary and ortho teams. (10) Fall Current Visit: Yes Status: Acute Qualifiers: Encounter type: initial encounter Qualified Code(s): W19.XXXA - Unspecified fall, initial encounter (11) Liver cirrhosis secondary to nonalcoholic steatohepatitis (HENRIQUEZ) Current Visit: Yes Status: Chronic MELD score 31. Recommend transfer to facility for hepatology evaluation. (12) Diabetes mellitus type 2 in obese Current Visit: No Status: Chronic (13) Hypersplenism Current Visit: Yes Status: Chronic (14) ESRD (end stage renal disease) on dialysis Current Visit: Yes Status: Acute [facility] consulted and following. Dose-adjust antibiotics for HD status. - Subjective Interval history: Patient seen and examined. No acute events noted overnight. Patient's mental status appears improved. Appears more alert and quicker to answer questions. Denies fevers or chills or rigors. Denies chest pain or shortness of breath. Denies nausea or vomiting or diarrhea. States she ate some toast for breakfast this morning. Denies abdominal pain. Alatorre catheter remains patent. Infect Dis PN-Objective Data - Labs CBC & Chem 7: 01/03/18 08:34 01/03/18 08:34 Labs: Laboratory Results - last 24 hr 01/02/18 01/02/18 01/02/18 06:00 06:00 08:24 WBC RBC Hgb Hct MCV MCH MCHC RDW Plt Count MPV Immature Gran % Seg Neutrophils % Lymphocytes % Monocytes % Eosinophils % Basophils % Neutrophils # Lymphocytes # Monocytes # Eosinophils # Basophils # Immature Plt Fraction Sodium 130 L Potassium 4.4 Chloride 97 L Carbon Dioxide 21 L BUN 75 H Creatinine 5.18 H Est GFR ( Amer) 10 L Est GFR (Non-Af Amer) 8 L BUN/Creatinine Ratio 14 Glucose 129 H POC Glucose 123 H Calculated Osmolality 294 Calcium 8.5 L Total Bilirubin 3.2 H Direct Bilirubin 1.6 H Indirect Bilirubin 1.6 H AST 20 ALT 11 Alkaline Phosphatase 61 Serum Total Protein 6.2 L Albumin 2.5 L Globulin 3.7 H Albumin/Globulin Ratio 0.7 L Random Vancomycin A. baumannii (PCR) Not Detected Jazmine albicans (PCR) Not Detected C. glabrata (PCR) Not Detected C. krusei (PCR) Not Detected C. parapsilosis (PCR) Not Detected C. tropicalis (PCR) Not Detected Enterobacteriac sp PCR Not Detected E. cloacae complex PCR Not Detected Enterococcus sp PCR Not Detected E. coli (PCR) Not Detected H. influenzae (PCR) Not Detected Klebsiella oxytoca PCR Not Detected Klebsiella pneumoniae Not Detected List. monocytogenes PCR Not Detected N. meningitidis (PCR) Not Detected Proteus species (PCR) Not Detected Serratia marcescens PCR Not Detected Staphylococcus sp PCR Not Detected Staph aureus (PCR) DETECTED A mecA-Methicil Res Gene DETECTED A Streptococcus sp PCR Not Detected Group A Strep DNA Not Detected Group B Strep (PCR) Not Detected Strep pneumoniae (PCR) Not Detected P. aeruginosa (PCR) Not Detected Jaimee/B-Vanco Res Genes Not Detected KPC (blaKPC) Detect PCR Not Detected 01/02/18 01/02/18 01/02/18 11:04 16:30 22:00 WBC RBC Hgb Hct MCV MCH MCHC RDW Plt Count MPV Immature Gran % Seg Neutrophils % Lymphocytes % Monocytes % Eosinophils % Basophils % Neutrophils # Lymphocytes # Monocytes # Eosinophils # Basophils # Immature Plt Fraction Sodium Potassium Chloride Carbon Dioxide BUN Creatinine Est GFR ( Amer) Est GFR (Non-Af Amer) BUN/Creatinine Ratio Glucose POC Glucose 142 H 144 H 129 H Calculated Osmolality Calcium Total Bilirubin Direct Bilirubin Indirect Bilirubin AST ALT Alkaline Phosphatase Serum Total Protein Albumin Globulin Albumin/Globulin Ratio Random Vancomycin A. baumannii (PCR) Jazmine albicans (PCR) C. glabrata (PCR) C. krusei (PCR) C. parapsilosis (PCR) C. tropicalis (PCR) Enterobacteriac sp PCR E. cloacae complex PCR Enterococcus sp PCR E. coli (PCR) H. influenzae (PCR) Klebsiella oxytoca PCR Klebsiella pneumoniae List. monocytogenes PCR N. meningitidis (PCR) Proteus species (PCR) Serratia marcescens PCR Staphylococcus sp PCR Staph aureus (PCR) mecA-Methicil Res Gene Streptococcus sp PCR Group A Strep DNA Group B Strep (PCR) Strep pneumoniae (PCR) P. aeruginosa (PCR) Jaimee/B-Vanco Res Genes KPC (blaKPC) Detect PCR 01/03/18 01/03/18 01/03/18 05:44 08:34 08:34 WBC 11.5 H D RBC 2.90 L Hgb 9.9 L Hct 29.5 L MCV 101.7 H MCH 34.1 H MCHC 33.6 RDW 18.6 H Plt Count 72 L MPV 12.4 Immature Gran % 1.0 Seg Neutrophils % 82.3 Lymphocytes % 9.2 Monocytes % 6.0 Eosinophils % 1.2 Basophils % 0.3 Neutrophils # 9.5 H Lymphocytes # 1.1 Monocytes # 0.7 Eosinophils # 0.1 Basophils # 0.0 Immature Plt Fraction 3.7 Sodium 129 L Potassium 4.9 Chloride 94 L Carbon Dioxide 18 L BUN 93 H Creatinine 5.85 H Est GFR ( Amer) 9 L Est GFR (Non-Af Amer) 7 L BUN/Creatinine Ratio 16 Glucose 143 H POC Glucose Calculated Osmolality 299 Calcium 8.4 L Total Bilirubin Direct Bilirubin Indirect Bilirubin AST ALT Alkaline Phosphatase Serum Total Protein Albumin Globulin Albumin/Globulin Ratio Random Vancomycin 19 A. baumannii (PCR) Jazmine albicans (PCR) C. glabrata (PCR) C. krusei (PCR) C. parapsilosis (PCR) C. tropicalis (PCR) Enterobacteriac sp PCR E. cloacae complex PCR Enterococcus sp PCR E. coli (PCR) H. influenzae (PCR) Klebsiella oxytoca PCR Klebsiella pneumoniae List. monocytogenes PCR N. meningitidis (PCR) Proteus species (PCR) Serratia marcescens PCR Staphylococcus sp PCR Staph aureus (PCR) mecA-Methicil Res Gene Streptococcus sp PCR Group A Strep DNA Group B Strep (PCR) Strep pneumoniae (PCR) P. aeruginosa (PCR) Jaimee/B-Vanco Res Genes KPC (blaKPC) Detect PCR Cultures: Cultures 12/31/17 06:15 Blood Culture - Final Central Venous Catheter Methicillin Resistant S.aureus 12/29/17 18:47 Blood Culture - Final Peripheral Venipuncture Methicillin Resistant S.aureus 12/31/17 06:30 Blood Culture - Final Central Venous Catheter Methicillin Resistant S.aureus 01/02/18 06:00 Blood Culture - Preliminary Peripheral Venipuncture Gram Positive Cocci 01/01/18 08:22 Catheter Tip Culture - Final Intravenous or Arterial Cath No growth. 01/02/18 06:00 Blood Culture - Final Peripheral Venipuncture Methicillin Resistant S.aureus 12/29/17 18:58 Blood Culture - Final Peripheral Venipuncture Methicillin Resistant S.aureus 12/26/17 21:49 Blood Culture - Final Peripheral Venipuncture Methicillin Resistant S.aureus 12/26/17 21:10 Blood Culture - Final Peripheral Venipuncture Methicillin Resistant S.aureus 12/26/17 22:10 Urine Culture - Final Urine,Alatorre Port Methicillin Resistant S.aureus Serology 01/02/18 12/31/17 12/29/17 Range/Units 06:00 06:30 18:58 Ur Specimen Adequacy Urine Color (Yellow) Urine Clarity (Clear) Urine pH (5.0-8.0) pH Units Ur Specific [place] (1.010-1.025) Urine Protein (Neg-Trace) mg/dL Urine Glucose (UA) (Normal) mg/dL Urine Ketones (Negative) mg/dL Urine Blood (Negative) Urine Nitrite (Negative) Urine Bilirubin (Negative) Urine Urobilinogen (Normal) mg/dL Ur Leukocyte Esterase (Negative) Urine Microscopic RBC (0-3) per hpf Urine Microscopic WBC (0-3) per hpf Ur Squamous Epith Cells (None-Few) per lpf Ur Transition Epith Cell (None-Few) per hpf Urine Bacteria (None-Few) per hpf Ur Culture Indicated? (NO) A. baumannii (PCR) Not Detected Not Detected Not Detected (Not Detect) Jazmine albicans (PCR) Not Detected Not Detected Not Detected (Not Detect) C. glabrata (PCR) Not Detected Not Detected Not Detected (Not Detect) C. krusei (PCR) Not Detected Not Detected Not Detected (Not Detect) C. parapsilosis (PCR) Not Detected Not Detected Not Detected (Not Detect) C. tropicalis (PCR) Not Detected Not Detected Not Detected (Not Detect) Enterobacteriac sp PCR Not Detected Not Detected Not Detected (Not Detect) E. cloacae complex PCR Not Detected Not Detected Not Detected (Not Detect) Enterococcus sp PCR Not Detected Not Detected Not Detected (Not Detect) E. coli (PCR) Not Detected Not Detected Not Detected (Not Detect) H. influenzae (PCR) Not Detected Not Detected Not Detected (Not Detect) Hep Bs Antigen (Nonreactive) Hep Bs Antibody mIU/mL Klebsiella oxytoca PCR Not Detected Not Detected Not Detected (Not Detect) Klebsiella pneumoniae Not Detected Not Detected Not Detected (Not Detect) List. monocytogenes PCR Not Detected Not Detected Not Detected (Not Detect) N. meningitidis (PCR) Not Detected Not Detected Not Detected (Not Detect) Proteus species (PCR) Not Detected Not Detected Not Detected (Not Detect) Serratia marcescens PCR Not Detected Not Detected Not Detected (Not Detect) Staphylococcus sp PCR Not Detected DETECTED A DETECTED A (Not Detect) Staph aureus (PCR) DETECTED A DETECTED A DETECTED A (Not Detect) mecA-Methicil Res Gene DETECTED A DETECTED A DETECTED A ( Not Detect) Streptococcus sp PCR Not Detected Not Detected Not Detected (Not Detect) Group A Strep DNA Not Detected Not Detected Not Detected (Not Detect) Group B Strep (PCR) Not Detected Not Detected Not Detected (Not Detect) Strep pneumoniae (PCR) Not Detected Not Detected Not Detected (Not Detect) P. aeruginosa (PCR) Not Detected Not Detected Not Detected (Not Detect) Jaimee/B-Vanco Res Genes Not Detected N/A Not Detected (Not Detect) KPC (blaKPC) Detect PCR Not Detected N/A Not Detected (Not Detect) 12/26/17 12/26/17 12/24/17 Range/Units 22:10 21:10 06:36 Ur Specimen Adequacy See below A Urine Color Red A (Yellow) Urine Clarity Cloudy A (Clear) Urine pH 7.0 (5.0-8.0) pH Units Ur Specific [place] 1.017 (1.010-1.025) Urine Protein 100 H (Neg-Trace) mg/dL Urine Glucose (UA) Normal (Normal) mg/dL Urine Ketones Negative (Negative) mg/dL Urine Blood Large H (Negative) Urine Nitrite Negative (Negative) Urine Bilirubin Small H (Negative) Urine Urobilinogen Normal (Normal) mg/dL Ur Leukocyte Esterase Small H (Negative) Urine Microscopic RBC TNTC H (0-3) per hpf Urine Microscopic WBC 5-15 H (0-3) per hpf Ur Squamous Epith Cells Moderate H (None-Few) per lpf Ur Transition Epith Cell Few (None-Few) per hpf Urine Bacteria Few (None-Few) per hpf Ur Culture Indicated? YES A (NO) A. baumannii (PCR) Not Detected (Not Detect) Jazmine albicans (PCR) Not Detected (Not Detect) C. glabrata (PCR) Not Detected (Not Detect) C. krusei (PCR) Not Detected (Not Detect) C. parapsilosis (PCR) Not Detected (Not Detect) C. tropicalis (PCR) Not Detected (Not Detect) Enterobacteriac sp PCR Not Detected (Not Detect) E. cloacae complex PCR Not Detected (Not Detect) Enterococcus sp PCR Not Detected (Not Detect) E. coli (PCR) Not Detected (Not Detect) H. influenzae (PCR) Not Detected (Not Detect) Hep Bs Antigen Nonreactive (Nonreactive) Hep Bs Antibody 39.72 mIU/mL Klebsiella oxytoca PCR Not Detected (Not Detect) Klebsiella pneumoniae Not Detected (Not Detect) List. monocytogenes PCR Not Detected (Not Detect) N. meningitidis (PCR) Not Detected (Not Detect) Proteus species (PCR) Not Detected (Not Detect) Serratia marcescens PCR Not Detected (Not Detect) Staphylococcus sp PCR DETECTED A (Not Detect) Staph aureus (PCR) DETECTED A (Not Detect) mecA-Methicil Res Gene DETECTED A (Not Detect) Streptococcus sp PCR Not Detected (Not Detect) Group A Strep DNA Not Detected (Not Detect) Group B Strep (PCR) Not Detected (Not Detect) Strep pneumoniae (PCR) Not Detected (Not Detect) P. aeruginosa (PCR) Not Detected (Not Detect) Jaimee/B-Vanco Res Genes N/A (Not Detect) KPC (blaKPC) Detect PCR N/A (Not Detect) - Impressions Impressions Echocardiogram 01/01/18 09:01 Impressions: LVEF 60%. Indeterminate diastolic function. Normal right ventricular structure and function. Mild tricuspid regurgitation. Mild pulmonary hypertension. There is a circumferential small to moderate pericardial effusion present most prominent along the inferior and lateral borders of the LV. There is no echocardiographic evidence of tamponade. Recommend repeat echo as clinically appropriate. Left Ventricular Wall Motion: Rest Echo Findings All wall segments showed normal motion. Findings: Study Quality * Technically adequate exam. ECG Findings * Normal sinus rhythm. Left Ventricle * LVEF 60%. * Normal LV chamber size, wall thickness and function. * Indeterminate diastolic function. Right Ventricle * Normal right ventricular structure and function. Left Atrium * Mildly dilated left atrium. Right Atrium * Normal right atrial size. Mitral Valve * Normal mitral valve structure. * No mitral stenosis. * Mild mitral annular calcification * Trace mitral regurgitation. Aortic Valve * No aortic regurgitation. * Aortic valve not well visualized. * No aortic stenosis by Doppler. Tricuspid Valve * Normal tricuspid valve structure. * Mild tricuspid regurgitation. * RVSP 37 mmHg. Pulmonic Valve * Pulmonic valve is not well visualized. * No pulmonic stenosis. * Trace pulmonic regurgitation. Pulmonary Artery * Pulmonary artery not well visualized. Aorta * Normally sized aortic root. Pericardium * There is a circumferential small to moderate pericardial effusion present most prominent along the inferior and lateral borders of the LV. * There is no echocardiographic evidence of tamponade. Interatrial Septum * No evidence of PFO by color Doppler. IVC * The IVC is dilated. * Sniff not well obtained. Exam - Constitutional Vitals: Temp Pulse Resp BP Pulse Ox 97.7 F 83 12 94/65 94 01/03/18 06:31 01/03/18 06:31 01/03/18 06:31 01/03/18 06:31 01/03/18 06:31 General appearance: cooperative, no acute distress, obese - Head Head exam: Present: atraumatic, normal inspection, normocephalic - Eye Eye exam: Present: EOMI, normal appearance, PERRL Pupils: Present: normal accommodation Additional comments: No subconjunctival hemorrhage noted. - ENT ENT exam: Present: mucous membranes moist - Neck Neck exam: Present: normal inspection - Respiratory Respiratory exam: Present: CTAB. Absent: rales, respiratory distress, rhonchi, wheezes - Cardiovascular Cardiovascular exam: Present: RRR, +S1, +S2 - GI/Abdominal GI/Abdominal exam: Present: distended (obese), normal bowel sounds, soft. Absent: tenderness Additional comments: Alatorre catheter noted to be draining clear, dark yellow urine. - Extremities Exam Extremities exam: Present: normal inspection. Absent: joint swelling, pedal edema, tenderness - Neurological Exam Neurological exam: Present: alert, no focal deficits. Absent: oriented X3 ( Oriented to person only.), facial droop, speech deficit - Psychiatric Psychiatric exam: Present: normal mood. Absent: normal affect (Flat affect) - Skin Skin exam: Present: dry, intact, normal color, warm - VTE Documentation of Mechanical Device: Intermittent pneumatic compression device Consult Discharge Plan - Plan Referrals: Rashawn Michaels MD [Primary Care Provider] - - Attending Attestation I examined this patient and my medical decision-making was reviewed with the Resident Physician. I agree with the documented findings, disposition and treatment plan as described except to the extent set forth below.
[2018-01-03 11:06] LABS: INR 1.6; Prothrombin Time 17.6 Seconds (9.4-12.1)
[2018-01-03] MEDS: Budesonide/Formoterol 160/4.5 MDI IH SCH ×2 (11:06→21:29)
[2018-01-03 11:09] LABS: Activated Partial Thrombo Time 30.8 Seconds (26.0-36.0)
--- NOTE | 2018-01-03 11:51 | Internal Med Progress Note ---
Date of Encounter: 01/03/18 Time of Encounter: 11:49 - Assessment and plan (1) DVT prophylaxis Current Visit: Yes Status: Acute Assessment and plan: EPCDs due to low PLT (2) Hypertension Current Visit: Yes Status: Chronic Assessment and plan: The patient is hypertensive. Hold Propranolol. Continue to monitor. Qualifiers: Hypertension type: essential hypertension Qualified Code(s): I10 - Essential (primary) hypertension (3) Pancytopenia Current Visit: Yes Status: Chronic Assessment and plan: chronic, due to liver cirrhosis, oncology eval in the past and present, continue to monitor Transfuse to Hb <7 Transfuse for PLT <10,000, or bleeding Continue to monitor (4) Fracture, clavicle closed, shaft Current Visit: Yes Status: Acute Assessment and plan: Imaging showed comminuted fracture sternal end right clavicle Orthopedics with recommendations for medical management without any surgical intervention at this time. Qualifiers: Encounter type: initial encounter Fracture alignment: nondisplaced Laterality: right Qualified Code(s): S42.024A - Nondisplaced fracture of shaft of right clavicle, initial encounter for closed fracture (5) T12 compression fracture Current Visit: Yes Status: Acute Assessment and plan: CT of thoracic spine showed mild superior endplate compression fracture of T12 appears acute. Orthopedic spine specialists consulted with recommendations for medical management Physical therapy consulted for evaluation for nursing facility placement- for ECF upon discharge (6) Diabetes mellitus Current Visit: Yes Status: Chronic Assessment and plan: Continue insulin sliding scale. Accuchecks. FS acceptable for now Qualifiers: Diabetes mellitus type: type 2 Diabetes mellitus alf insulin use: without alf use Diabetes mellitus complication status: with kidney complications Diabetes mellitus complication detail: with other kidney complication Qualified Code(s): E11.29 - Type 2 diabetes mellitus with other diabetic kidney complication (7) ESRD (end stage renal disease) Current Visit: Yes Status: Chronic Assessment and plan: HD per renal, no catheter for now,electrolytes are acceptable According to nephrology, temporary catheter will be placed tomorrow for possible resumption of hemodialysis. Electrolytes acceptable. (8) Bacteremia Current Visit: Yes Status: Acute Assessment and plan: Persistent Due to MRSA Peripheral blood cultures drawn 12/26/17 are positive 2/2 sets for MRSA. Repeat peripheral blood cultures drawn 12/29/17 are positive 2/2 sets as well. Blood cultures drawn 12/31/17 from the patient's Perma-cath are positive for MRSA. Status post perma-cath removal 01/01/18. Complicated due to persistent bacteremia and seeding of the kidneys. TTE noted, no vegetations Repeat blood culture done 01/02 point MRSA. Patient is on on vancomycin with therapeutic random level. Infectious disease is following, will follow recommendations. (9) UTI (urinary tract infection) Current Visit: Yes Status: Acute Assessment and plan: Patient urinary culture positive for MRSA Patient continues to have confusion secondary to UTI/bacteremia Continue IV vancomycin as above Qualifiers: Urinary tract infection type: acute cystitis Hematuria presence: without hematuria Qualified Code(s): N30.00 - Acute cystitis without hematuria (10) Acute encephalopathy Current Visit: Yes Status: Resolved Assessment and plan: Resolved,possibly due to severe sepsis (11) Hypersplenism Current Visit: Yes Status: Chronic Assessment and plan: chronic,stable, due to liver cirrhosis (12) Liver cirrhosis secondary to nonalcoholic steatohepatitis ([facility]RIQUEZ) Current Visit: Yes Status: Chronic Assessment and plan: chronic, continue to monitor Ensure at least 2 BM per day, continue lactulose (13) Severe sepsis Current Visit: Yes Status: Acute Assessment and plan: Secondary to MRSA CLABSI Afebrile since 12/27/17. Tachycardia has resolved. AMS and lactic acidosis resolved. Persistently bacteremic with MRSA CBC today with leukocytosis 11.5 Continue vancomycin, await infectious disease recommendation. (14) Goals of care, counseling/discussion Current Visit: Yes Status: Acute - Time Spent With Patient Total time spent is greater than 50% in coordination of care (as documented) at patient's floor/unit and/or counseling patient: - Subjective Interval history: Seen and evaluated at bedside 72 F with known Cirrhosis and ESRD on HD, Pancytpenia, being managed for Severe Sepsis due to UTI and MRSA bacteremia possibly due to CLABSI, encephalopathy due to sepsis, clavicular fracture Infectious disease has been consulted ,appreciate recommendations Blood cultures drawn today 01/02 is positive for MRSA She is on vancomycin, random vanco level 22 01/02, ECHO done 01/01/18 showed pericardial effusion, preserved EF,no WMA,no vegetations This morning, the patient responds to most questions by saying "I don't know" She is again educated on her diagnoses She refuses to discuss code status at at now She is dyspneic and tachypneic this a.m, O2 requirements at 4L - Constitutional Vitals: Temp Pulse Resp BP Pulse Ox 97.4 F L 76 20 92/61 96 01/03/18 10:55 01/03/18 10:55 01/03/18 11:07 01/03/18 10:55 01/03/18 11:07 General appearance: Present: A&O X 2 (AAOX2, to place and person only), mild distress (respiratory distress), no acute distress - Head Head exam: Present: atraumatic, normocephalic - Eye Eye exam: Present: PERRL, conjuntiva pink, sclera anicteric Pupils: Present: PERRL - Neck Neck exam general surgery: Present: supple, trachea midline. Absent: lymphadenopathy - Respiratory Respiratory exam: Absent: accessory muscle use, rales, rhonchi, wheezes Additional comments: anterior auscultation CTAB Chest wall dressing clean and dry. - Cardiovascular Cardiovascular exam: Present: RRR, +S1, +S2. Absent: diastolic murmur, gallop, rubs, systolic murmur - GI/Abdominal GI/Abdominal exam: Present: normal bowel sounds, soft, no peritoneal signs. Absent: distended, tenderness - Extremities Exam Extremities exam: Present: warm, radial pulses palpable and symmetrical. Absent : calf tenderness, cyanotic, pedal edema - Neurological Exam Neurological exam: Present: alert, CN II-XII intact, no focal deficits. Absent : oriented X3, pronater drift, facial droop, speech deficit - Skin Skin exam: Present: dry, intact Internal Medicine: Result - Labs CBC & Chem 7: 01/03/18 08:34 01/03/18 08:34 Labs: Short CBC 01/03/18 Range/Units 08:34 WBC 11.5 H D (4.3-11.1) K/mcL Hgb 9.9 L (11.5-15.4) g/dL Hct 29.5 L (35.3-44.9) % Plt Count 72 L (140-400) K/mcL Neutrophils # 9.5 H (1.6-8.9) K/mcL BMP 01/03/18 08:34 Sodium 129 L Potassium 4.9 Chloride 94 L Carbon Dioxide 18 L BUN 93 H Creatinine 5.85 H Glucose 143 H Calcium 8.4 L - ABG Interpretation ABG results: PT/INR, D-dimer PT 17.6 Seconds (9.4-12.1) H 01/03/18 10:35 - VTE Documentation of Mechanical Device: Intermittent pneumatic compression device Consult Discharge Plan - Plan Referrals: Rashawn Michaels MD [Primary Care Provider] -
[2018-01-03] MEDS ORDERED: *HR* Heparin 5,000 UNIT/ML VIAL ONE (13:17)
--- NOTE | 2018-01-03 14:05 | IR Procedure Note ---
Date of procedure: 01/03/18 Consent Obtained: Verbal consent Timeout: Correct patient and procedure verified, Correct site verified, Time out performed, Skin prep completed Local anesthetic: Lidocaine 1% Indications: Renal insufficiency Procedure Performed: Temp HD catheter placement Was there an life enrichment assistant present: No Site/Technique: RIJV used for access. Results/Findings: 20cm HD 15.5fr catheter placed. Tip in RA. Estimated blood loss (cc): 1 Complications: None; Tolerated procedure well Post Procedure Treatment Plan: Monitoring in pts room. Specimen: N/a
[2018-01-03 19:23] LABS: Hematocrit 30.3 % (35.3-44.9); Red Cell Distribution Width 18.6 % (11.5-14.5)
[2018-01-03 19:24] LABS: Basophils % 0.1 %; Eosinophils # 0.1 K/mcL (0.0-0.6); Eosinophils % 0.6 %; Immature Platelets 3.6 % (1.1-6.1); Lymphocytes # 1.7 K/mcL (0.6-4.6); Lymphocytes % 10.6 %; Mean Corpuscular Hemoglobin 33.6 pg (28.0-33.3); Mean Corpuscular Volume 101.7 fL (83.0-100.0); Mean Platelet Volume 11.8 fL (9.4-12.4); Monocytes # 0.9 K/mcL (0.0-1.3); Monocytes % 5.2 %; Neutrophils # 13.3 K/mcL (1.6-8.9); Nucleated Red Blood Cells 0.3 /100 WBC (0); Red Blood Count 2.98 M/mcL (3.82-4.97); Segmented Neutrophils % 81.5 %
[2018-01-03 19:25] LABS: Platelet Count 96 K/mcL (140-400)
[2018-01-03 19:28] LABS: ABG Base Excess -6 mEq/L (-2 to 3); ABG HCO3 18 mEq/L (21-27); ABG Oxygen Saturation 97 % (95-98); ABG PCO2 33 mmHg (35-45); ABG PH 7.36 pH Units (7.32-7.45); ABG PO2 90 mmHg (85-104); ABG TCO2 19 mEq/L (20-26)
[2018-01-03 19:42] LABS: Albumin 2.7 g/dL (3.5-5.7); Albumin/Globulin Ratio 0.6 (1.1-2.2); Bilirubin,Total 3.6 mg/dL (0.3-1.0); Calcium 8.3 mg/dL (8.6-10.3); Globulin 4.2 g/dL (2.4-3.5); Total Protein 6.9 g/dL (6.4-8.9)
[2018-01-04 02:09] LABS: Enterococcus by PCR Not Detected (Not Detect); mecA Methicillin-Resist Gene ***DETECTED*** (Not Detect)
[2018-01-04 02:10] LABS: Acinetobacter baumannii by PCR Not Detected (Not Detect); Candida albicans by PCR Not Detected (Not Detect); Candida glabrata by PCR Not Detected (Not Detect); Candida krusei by PCR Not Detected (Not Detect); Candida parapsilosis by PCR Not Detected (Not Detect); Candida tropicalis by PCR Not Detected (Not Detect); Escherichia coli by PCR Not Detected (Not Detect); Klebsiella oxytoca by PCR Not Detected (Not Detect); Klebsiella pneumoniae by PCR Not Detected (Not Detect); Pseudomonas aeruginosa by PCR Not Detected (Not Detect); Serratia marcescens by PCR Not Detected (Not Detect); Staphylococcus aureus by PCR ***DETECTED*** (Not Detect); Streptococcus agalactiae(B)PCR Not Detected (Not Detect); Streptococcus by PCR Not Detected (Not Detect); Streptococcus pneumoniae PCR Not Detected (Not Detect); Streptococcus pyogenes (A) PCR Not Detected (Not Detect)
[2018-01-04 05:01] LABS: Basophils % 0.1 %; Mean Corpuscular Volume 100.8 fL (83.0-100.0)
[2018-01-04 05:03] LABS: Eosinophils # 0.1 K/mcL (0.0-0.6); Eosinophils % 1.2 %; Hematocrit 24.2 % (35.3-44.9); Hemoglobin 8.2 g/dL (11.5-15.4); Immature Granulocytes % 1.2 % (0-4); Immature Platelets 2.8 % (1.1-6.1); Lymphocytes # 0.6 K/mcL (0.6-4.6); Lymphocytes % 8.3 %; Mean Corpuscular HGB Conc 33.9 g/dL (31.6-35.5); Mean Corpuscular Hemoglobin 34.2 pg (28.0-33.3); Mean Platelet Volume 11.6 fL (9.4-12.4); Monocytes # 0.5 K/mcL (0.0-1.3); Monocytes % 6.4 %; Neutrophils # 6.3 K/mcL (1.6-8.9); Nucleated Red Blood Cells 0.4 /100 WBC (0); Red Cell Distribution Width 18.4 % (11.5-14.5); Segmented Neutrophils % 82.8 %
[2018-01-04] MEDS ORDERED: Lactulose Oral Soln 20 GM/30 ML UDC PO ONE (05:09)
[2018-01-04 05:12] LABS: Platelet Count 49 K/mcL (140-400)
[2018-01-04 05:19] LABS: Calcium 8.1 mg/dL (8.6-10.3); Potassium 4.9 mEq/L (3.5-5.1)
[2018-01-04 05:45] LABS: Hypochromasia Present (Not Present); Macrocytosis Present (Not Present)
[2018-01-04 05:46] LABS: Platelet Estimate Decreased (Normal); Polychromasia 1+ (Not Present)
[2018-01-04 05:47] LABS: Anisocytosis 1+ (Not Present)
[2018-01-04] MEDS: Budesonide/Formoterol 160/4.5 MDI IH SCH ×2 (07:23→22:13)
[2018-01-04] MEDS ORDERED: Aminoglycoside Consult 1 EACH MC ONE (08:19)
[2018-01-04] MEDS ORDERED: 0.9 % Sodium Chloride 250 ML IVC PRN (09:20)
[2018-01-04] MEDS ORDERED: Albumin 25% 12.5gm/50mL 12.5 GM/50 ML IV.SOLN IVPB PRN (09:20)
[2018-01-04] MEDS ORDERED: 0.9 % Sodium Chloride 1,000 ML PRIME SCH (09:30)
--- NOTE | 2018-01-04 09:36 | Infectious Disease Progress No ---
Date of Encounter: 01/04/18 Time of Encounter: 09:34 - Assessment and Plan (1) Severe sepsis Current Visit: Yes Status: Acute The patient had two SIRS criteria plus AMS and lactic acidosis on 12/26/17. She also had leukopenia on admission, which appears chronic, although her WBC is now normal. Likely secondary to bacteremia and dialysis catheter infection. Improved. Afebrile since 12/27/17. Tachycardia has resolved. WBC normal this morning. Thrombocytopenia improved. Peripheral blood cultures drawn 12/26/17 are positive 2/2 sets for MRSA. Repeat peripheral blood cultures drawn 12/29/17 are positive 2/2 sets as well. lood cultures drawn 12/31/17 from the patient's Perma-cath are positive for MRSA. Repeat blood cultures drawn 01/02/18 are positive 1/2 sets. Additional blood cultures drawn 01/03/18 are positive 1/2 sets. (2) Bacteremia Current Visit: Yes Status: Acute Causative organism: MRSA. Peripheral blood cultures drawn 12/26/17 are positive 2/2 sets for MRSA. Repeat peripheral blood cultures drawn 12/29/17 are positive 2/2 sets as well. Blood cultures drawn 12/31/17 from the patient's Perma-cath are positive for MRSA. Additional peripheral blood cultures drawn 01/02/18 are positive 2/2 sets. Repeat blood cultures drawn 01/03/18 are positive 1/2 sets. Status post perma-cath removal 01/01/18. Complicated due to persistent bacteremia and seeding of the kidneys. No endocarditis stigmata noted on exam. The patient has one major and two minor Modified Salazar's Criteria. Rheumatoid factor elevated at 16. TTE negative for endocarditis. May need to consider AMERICO prior to discharge since the patient's platelet count is improving. Repeat blood cultures x 2 sets in the AM. Given the persistent bacteremia, recommend CT of the chest, abdomen, and pelvis with IV contrast. Recommend the patient get the CT scans prior to HD today so we can use IV contrast. Continue Vancomycin IV. Pharmacy to dose. Goal trough ~15. Random vanc level this morning 18. Duration of treatment depends on the clinical picture, but likely 4-6 weeks from the first set of negative blood cultures. Monitor for drug toxicity and dose-adjust antibiotics. (3) UTI (urinary tract infection) Current Visit: Yes Status: Acute Causative organism: MRSA. Likely seeding from bacteremia. Continue Vancomycin as above. Qualifiers: Urinary tract infection type: acute cystitis Hematuria presence: without hematuria Qualified Code(s): N30.00 - Acute cystitis without hematuria (4) Acute encephalopathy Current Visit: Yes Status: Resolved Likely multifactorial: sepsis + elevated ammonia level + hypoxia. CT head negative in the ER and 12/26/17. MRI of the brain negative. Appears improved, but still altered. Not sure what the patient's baseline status is. Continue to monitor closely. (5) Hypoxemia Current Visit: Yes Status: Resolved Likely secondary to AMS and pleural effusion. Appears improved with BIPAP. Patient currently on O2 via NC. (6) Pancytopenia Current Visit: Yes Status: Chronic Evaluated by Hem/Onc during last hospital stay. Likely secondary to ESLD per Hem /Onc, but wondering if there was an infectious component contributing as well given that her numbers have improved since being on antibiotics. Hem/Onc consulted and following. Leukopenia and thrombocytopenia improved. Transfusion parameters per the primary and Hem/Onc teams. (7) Closed compression fracture of L1 lumbar vertebral body Current Visit: Yes Status: Acute Secondary to fall. CT scans show T12 and L1 compression fracture. Dr. Garcia consulted. No surgical intervention. Further management per the primary and ortho teams. (8) Fall Current Visit: Yes Status: Acute Qualifiers: Encounter type: initial encounter Qualified Code(s): W19.XXXA - Unspecified fall, initial encounter (9) Liver cirrhosis secondary to nonalcoholic steatohepatitis (HENRIQUEZ) Current Visit: Yes Status: Chronic MELD score 31. Recommend transfer to facility for hepatology evaluation. (10) Diabetes mellitus type 2 in obese Current Visit: No Status: Chronic (11) Hypersplenism Current Visit: Yes Status: Chronic (12) ESRD (end stage renal disease) on dialysis Current Visit: Yes Status: Acute [facility] consulted and following. Dose-adjust antibiotics for HD status. - Subjective Interval history: Patient seen and examined. Yesterday's events noted. Patient had decreased LOC with hypoxia. Placed on BIPAP. CXR shows small pleural effusion with focal consolidation in the left base, likely atelectasis. Patient's mental status appears improved this morning. Appears more alert and quicker to answer questions. Denies fevers or chills or rigors. Denies chest pain or shortness of breath. Denies nausea or vomiting or diarrhea. NPO this morning. Denies abdominal pain. Alatorre catheter remains patent. Status post temporary HD catheter placement 01/03/18. Infect Dis PN-Objective Data - Labs CBC & Chem 7: 01/04/18 04:00 01/04/18 04:00 Labs: Laboratory Results - last 24 hr 01/03/18 01/03/18 01/03/18 06:38 08:34 10:35 WBC RBC Hgb Hct MCV MCH MCHC RDW Plt Count MPV Immature Gran % Seg Neutrophils % Lymphocytes % Monocytes % Eosinophils % Basophils % Neutrophils # Lymphocytes # Monocytes # Eosinophils # Basophils # Nucleated RBCs/100 WBC Platelet Estimate Immature Plt Fraction Polychromasia Hypochromasia Anisocytosis Macrocytosis PT 17.6 H INR 1.6 APTT 30.8 Sample Site ABG pH ABG pCO2 ABG pO2 ABG HCO3 ABG Total CO2 ABG O2 Saturation ABG Base Excess [place] Test O2 Delivery Device Inspired O2 Sodium Potassium Chloride Carbon Dioxide BUN Creatinine Est GFR ( Amer) Est GFR (Non-Af Amer) BUN/Creatinine Ratio Glucose POC Glucose 150 H Calculated Osmolality Calcium Total Bilirubin AST ALT Alkaline Phosphatase Ammonia Serum Total Protein Albumin Globulin Albumin/Globulin Ratio Random Vancomycin A. baumannii (PCR) Not Detected Jazmine albicans (PCR) Not Detected C. glabrata (PCR) Not Detected C. krusei (PCR) Not Detected C. parapsilosis (PCR) Not Detected C. tropicalis (PCR) Not Detected Enterobacteriac sp PCR Not Detected E. cloacae complex PCR Not Detected Enterococcus sp PCR Not Detected E. coli (PCR) Not Detected H. influenzae (PCR) Not Detected Klebsiella oxytoca PCR Not Detected Klebsiella pneumoniae Not Detected List. monocytogenes PCR Not Detected N. meningitidis (PCR) Not Detected Proteus species (PCR) Not Detected Serratia marcescens PCR Not Detected Staphylococcus sp PCR DETECTED A Staph aureus (PCR) DETECTED A mecA-Methicil Res Gene DETECTED A Streptococcus sp PCR Not Detected Group A Strep DNA Not Detected Group B Strep (PCR) Not Detected Strep pneumoniae (PCR) Not Detected P. aeruginosa (PCR) Not Detected Jaimee/B-Vanco Res Genes N/A KPC (blaKPC) Detect PCR N/A 01/03/18 01/03/18 01/03/18 11:01 16:16 19:01 WBC RBC Hgb Hct MCV MCH MCHC RDW Plt Count MPV Immature Gran % Seg Neutrophils % Lymphocytes % Monocytes % Eosinophils % Basophils % Neutrophils # Lymphocytes # Monocytes # Eosinophils # Basophils # Nucleated RBCs/100 WBC Platelet Estimate Immature Plt Fraction Polychromasia Hypochromasia Anisocytosis Macrocytosis PT INR APTT Sample Site ABG pH ABG pCO2 ABG pO2 ABG HCO3 ABG Total CO2 ABG O2 Saturation ABG Base Excess [place] Test O2 Delivery Device Inspired O2 Sodium Potassium Chloride Carbon Dioxide BUN Creatinine Est GFR ( Amer) Est GFR (Non-Af Amer) BUN/Creatinine Ratio Glucose POC Glucose 187 H 185 H 197 H Calculated Osmolality Calcium Total Bilirubin AST ALT Alkaline Phosphatase Ammonia Serum Total Protein Albumin Globulin Albumin/Globulin Ratio Random Vancomycin A. baumannii (PCR) Jazmine albicans (PCR) C. glabrata (PCR) C. krusei (PCR) C. parapsilosis (PCR) C. tropicalis (PCR) Enterobacteriac sp PCR E. cloacae complex PCR Enterococcus sp PCR E. coli (PCR) H. influenzae (PCR) Klebsiella oxytoca PCR Klebsiella pneumoniae List. monocytogenes PCR N. meningitidis (PCR) Proteus species (PCR) Serratia marcescens PCR Staphylococcus sp PCR Staph aureus (PCR) mecA-Methicil Res Gene Streptococcus sp PCR Group A Strep DNA Group B Strep (PCR) Strep pneumoniae (PCR) P. aeruginosa (PCR) Jaimee/B-Vanco Res Genes KPC (blaKPC) Detect PCR 01/03/18 01/03/18 01/03/18 19:15 19:15 19:15 WBC 16.3 H RBC 2.98 L Hgb 10.0 L Hct 30.3 L MCV 101.7 H MCH 33.6 H MCHC 33.0 RDW 18.6 H Plt Count 96 L MPV 11.8 Immature Gran % 2.0 Seg Neutrophils % 81.5 Lymphocytes % 10.6 Monocytes % 5.2 Eosinophils % 0.6 Basophils % 0.1 Neutrophils # 13.3 H Lymphocytes # 1.7 Monocytes # 0.9 Eosinophils # 0.1 Basophils # 0.0 Nucleated RBCs/100 WBC 0.3 H Platelet Estimate Immature Plt Fraction 3.6 Polychromasia Hypochromasia Anisocytosis Macrocytosis PT INR APTT Sample Site ABG pH ABG pCO2 ABG pO2 ABG HCO3 ABG Total CO2 ABG O2 Saturation ABG Base Excess [place] Test O2 Delivery Device Inspired O2 Sodium 129 L Potassium 5.0 Chloride 93 L Carbon Dioxide 18 L BUN 100 H Creatinine 7.03 H Est GFR ( Amer) 7 L Est GFR (Non-Af Amer) 6 L BUN/Creatinine Ratio 14 Glucose 206 H POC Glucose Calculated Osmolality 305 H Calcium 8.3 L Total Bilirubin 3.6 H AST 18 ALT 12 Alkaline Phosphatase 74 Ammonia 127 H Serum Total Protein 6.9 Albumin 2.7 L Globulin 4.2 H Albumin/Globulin Ratio 0.6 L Random Vancomycin A. baumannii (PCR) Jazmine albicans (PCR) C. glabrata (PCR) C. krusei (PCR) C. parapsilosis (PCR) C. tropicalis (PCR) Enterobacteriac sp PCR E. cloacae complex PCR Enterococcus sp PCR E. coli (PCR) H. influenzae (PCR) Klebsiella oxytoca PCR Klebsiella pneumoniae List. monocytogenes PCR N. meningitidis (PCR) Proteus species (PCR) Serratia marcescens PCR Staphylococcus sp PCR Staph aureus (PCR) mecA-Methicil Res Gene Streptococcus sp PCR Group A Strep DNA Group B Strep (PCR) Strep pneumoniae (PCR) P. aeruginosa (PCR) Jaimee/B-Vanco Res Genes KPC (blaKPC) Detect PCR 01/03/18 01/03/18 01/03/18 19:25 20:51 23:54 WBC RBC Hgb Hct MCV MCH MCHC RDW Plt Count MPV Immature Gran % Seg Neutrophils % Lymphocytes % Monocytes % Eosinophils % Basophils % Neutrophils # Lymphocytes # Monocytes # Eosinophils # Basophils # Nucleated RBCs/100 WBC Platelet Estimate Immature Plt Fraction Polychromasia Hypochromasia Anisocytosis Macrocytosis PT INR APTT Sample Site R Radial ABG pH 7.36 ABG pCO2 33 L ABG pO2 90 ABG HCO3 18 L ABG Total CO2 19 L ABG O2 Saturation 97 ABG Base Excess -6 L Enrico Test Positive O2 Delivery Device NRB Inspired O2 15.0 Sodium Potassium Chloride Carbon Dioxide BUN Creatinine Est GFR ( Amer) Est GFR (Non-Af Amer) BUN/Creatinine Ratio Glucose POC Glucose 186 H 184 H Calculated Osmolality Calcium Total Bilirubin AST ALT Alkaline Phosphatase Ammonia Serum Total Protein Albumin Globulin Albumin/Globulin Ratio Random Vancomycin A. baumannii (PCR) Jazmine albicans (PCR) C. glabrata (PCR) C. krusei (PCR) C. parapsilosis (PCR) C. tropicalis (PCR) Enterobacteriac sp PCR E. cloacae complex PCR Enterococcus sp PCR E. coli (PCR) H. influenzae (PCR) Klebsiella oxytoca PCR Klebsiella pneumoniae List. monocytogenes PCR N. meningitidis (PCR) Proteus species (PCR) Serratia marcescens PCR Staphylococcus sp PCR Staph aureus (PCR) mecA-Methicil Res Gene Streptococcus sp PCR Group A Strep DNA Group B Strep (PCR) Strep pneumoniae (PCR) P. aeruginosa (PCR) Jaimee/B-Vanco Res Genes KPC (blaKPC) Detect PCR 01/04/18 01/04/18 01/04/18 04:00 04:00 04:00 WBC 7.6 D RBC 2.40 L Hgb 8.2 L D Hct 24.2 L MCV 100.8 H MCH 34.2 H MCHC 33.9 RDW 18.4 H Plt Count 49 L MPV 11.6 Immature Gran % 1.2 Seg Neutrophils % 82.8 Lymphocytes % 8.3 Monocytes % 6.4 Eosinophils % 1.2 Basophils % 0.1 Neutrophils # 6.3 Lymphocytes # 0.6 Monocytes # 0.5 Eosinophils # 0.1 Basophils # 0.0 Nucleated RBCs/100 WBC 0.4 H Platelet Estimate Decreased L Immature Plt Fraction 2.8 Polychromasia 1+ A Hypochromasia Present A Anisocytosis 1+ A Macrocytosis Present A PT INR APTT Sample Site ABG pH ABG pCO2 ABG pO2 ABG HCO3 ABG Total CO2 ABG O2 Saturation ABG Base Excess [place] Test O2 Delivery Device Inspired O2 Sodium 130 L Potassium 4.9 Chloride 95 L Carbon Dioxide 20 L BUN 105 H Creatinine 7.47 H Est GFR ( Amer) 7 L Est GFR (Non-Af Amer) 5 L BUN/Creatinine Ratio 14 Glucose 158 H POC Glucose Calculated Osmolality 306 H Calcium 8.1 L Total Bilirubin AST ALT Alkaline Phosphatase Ammonia Serum Total Protein Albumin Globulin Albumin/Globulin Ratio Random Vancomycin 18 A. baumannii (PCR) Jazmine albicans (PCR) C. glabrata (PCR) C. krusei (PCR) C. parapsilosis (PCR) C. tropicalis (PCR) Enterobacteriac sp PCR E. cloacae complex PCR Enterococcus sp PCR E. coli (PCR) H. influenzae (PCR) Klebsiella oxytoca PCR Klebsiella pneumoniae List. monocytogenes PCR N. meningitidis (PCR) Proteus species (PCR) Serratia marcescens PCR Staphylococcus sp PCR Staph aureus (PCR) mecA-Methicil Res Gene Streptococcus sp PCR Group A Strep DNA Group B Strep (PCR) Strep pneumoniae (PCR) P. aeruginosa (PCR) Jaimee/B-Vanco Res Genes KPC (blaKPC) Detect PCR 01/04/18 05:40 WBC RBC Hgb Hct MCV MCH MCHC RDW Plt Count MPV Immature Gran % Seg Neutrophils % Lymphocytes % Monocytes % Eosinophils % Basophils % Neutrophils # Lymphocytes # Monocytes # Eosinophils # Basophils # Nucleated RBCs/100 WBC Platelet Estimate Immature Plt Fraction Polychromasia Hypochromasia Anisocytosis Macrocytosis PT INR APTT Sample Site ABG pH ABG pCO2 ABG pO2 ABG HCO3 ABG Total CO2 ABG O2 Saturation ABG Base Excess [place] Test O2 Delivery Device Inspired O2 Sodium Potassium Chloride Carbon Dioxide BUN Creatinine Est GFR ( Amer) Est GFR (Non-Af Amer) BUN/Creatinine Ratio Glucose POC Glucose 167 H Calculated Osmolality Calcium Total Bilirubin AST ALT Alkaline Phosphatase Ammonia Serum Total Protein Albumin Globulin Albumin/Globulin Ratio Random Vancomycin A. baumannii (PCR) Jazmine albicans (PCR) C. glabrata (PCR) C. krusei (PCR) C. parapsilosis (PCR) C. tropicalis (PCR) Enterobacteriac sp PCR E. cloacae complex PCR Enterococcus sp PCR E. coli (PCR) H. influenzae (PCR) Klebsiella oxytoca PCR Klebsiella pneumoniae List. monocytogenes PCR N. meningitidis (PCR) Proteus species (PCR) Serratia marcescens PCR Staphylococcus sp PCR Staph aureus (PCR) mecA-Methicil Res Gene Streptococcus sp PCR Group A Strep DNA Group B Strep (PCR) Strep pneumoniae (PCR) P. aeruginosa (PCR) Jaimee/B-Vanco Res Genes KPC (blaKPC) Detect PCR Cultures: Cultures 01/03/18 08:34 Blood Culture - Final Peripheral Venipuncture Methicillin Resistant S.aureus 01/02/18 06:00 Blood Culture - Final Peripheral Venipuncture Methicillin Resistant S.aureus 01/03/18 05:44 Blood Culture - Preliminary Peripheral Venipuncture No growth. 12/31/17 06:15 Blood Culture - Final Central Venous Catheter Methicillin Resistant S.aureus 12/29/17 18:47 Blood Culture - Final Peripheral Venipuncture Methicillin Resistant S.aureus 12/31/17 06:30 Blood Culture - Final Central Venous Catheter Methicillin Resistant S.aureus 01/01/18 08:22 Catheter Tip Culture - Final Intravenous or Arterial Cath No growth. 01/02/18 06:00 Blood Culture - Final Peripheral Venipuncture Methicillin Resistant S.aureus 12/29/17 18:58 Blood Culture - Final Peripheral Venipuncture Methicillin Resistant S.aureus 12/26/17 21:49 Blood Culture - Final Peripheral Venipuncture Methicillin Resistant S.aureus 12/26/17 21:10 Blood Culture - Final Peripheral Venipuncture Methicillin Resistant S.aureus 12/26/17 22:10 Urine Culture - Final Urine,[place] Methicillin Resistant S.aureus Serology 01/03/18 01/02/18 12/31/17 Range/Units 08:34 06:00 06:30 Ur Specimen Adequacy Urine Color (Yellow) Urine Clarity (Clear) Urine pH (5.0-8.0) pH Units Ur Specific [place] (1.010-1.025) Urine Protein (Neg-Trace) mg/dL Urine Glucose (UA) (Normal) mg/dL Urine Ketones (Negative) mg/dL Urine Blood (Negative) Urine Nitrite (Negative) Urine Bilirubin (Negative) Urine Urobilinogen (Normal) mg/dL Ur Leukocyte Esterase (Negative) Urine Microscopic RBC (0-3) per hpf Urine Microscopic WBC (0-3) per hpf Ur Squamous Epith Cells (None-Few) per lpf Ur Transition Epith Cell (None-Few) per hpf Urine Bacteria (None-Few) per hpf Ur Culture Indicated? (NO) A. baumannii (PCR) Not Detected Not Detected Not Detected (Not Detect) Jazmine albicans (PCR) Not Detected Not Detected Not Detected (Not Detect) C. glabrata (PCR) Not Detected Not Detected Not Detected (Not Detect) C. krusei (PCR) Not Detected Not Detected Not Detected (Not Detect) C. parapsilosis (PCR) Not Detected Not Detected Not Detected (Not Detect) C. tropicalis (PCR) Not Detected Not Detected Not Detected (Not Detect) Enterobacteriac sp PCR Not Detected Not Detected Not Detected (Not Detect) E. cloacae complex PCR Not Detected Not Detected Not Detected (Not Detect) Enterococcus sp PCR Not Detected Not Detected Not Detected (Not Detect) E. coli (PCR) Not Detected Not Detected Not Detected (Not Detect) H. influenzae (PCR) Not Detected Not Detected Not Detected (Not Detect) Hep Bs Antigen (Nonreactive) Hep Bs Antibody mIU/mL Klebsiella oxytoca PCR Not Detected Not Detected Not Detected (Not Detect) Klebsiella pneumoniae Not Detected Not Detected Not Detected (Not Detect) List. monocytogenes PCR Not Detected Not Detected Not Detected (Not Detect) N. meningitidis (PCR) Not Detected Not Detected Not Detected (Not Detect) Proteus species (PCR) Not Detected Not Detected Not Detected (Not Detect) Serratia marcescens PCR Not Detected Not Detected Not Detected (Not Detect) Staphylococcus sp PCR DETECTED A Not Detected DETECTED A (Not Detect) Staph aureus (PCR) DETECTED A DETECTED A DETECTED A (Not Detect) mecA-Methicil Res Gene DETECTED A DETECTED A DETECTED A ( Not Detect) Streptococcus sp PCR Not Detected Not Detected Not Detected (Not Detect) Group A Strep DNA Not Detected Not Detected Not Detected (Not Detect) Group B Strep (PCR) Not Detected Not Detected Not Detected (Not Detect) Strep pneumoniae (PCR) Not Detected Not Detected Not Detected (Not Detect) P. aeruginosa (PCR) Not Detected Not Detected Not Detected (Not Detect) Jaimee/B-Vanco Res Genes N/A Not Detected N/A (Not Detect) KPC (blaKPC) Detect PCR N/A Not Detected N/A (Not Detect) 12/29/17 12/26/17 12/26/17 Range/Units 18:58 22:10 21:10 Ur Specimen Adequacy See below A Urine Color Red A (Yellow) Urine Clarity Cloudy A (Clear) Urine pH 7.0 (5.0-8.0) pH Units Ur Specific [place] 1.017 (1.010-1.025) Urine Protein 100 H (Neg-Trace) mg/dL Urine Glucose (UA) Normal (Normal) mg/dL Urine Ketones Negative (Negative) mg/dL Urine Blood Large H (Negative) Urine Nitrite Negative (Negative) Urine Bilirubin Small H (Negative) Urine Urobilinogen Normal (Normal) mg/dL Ur Leukocyte Esterase Small H (Negative) Urine Microscopic RBC TNTC H (0-3) per hpf Urine Microscopic WBC 5-15 H (0-3) per hpf Ur Squamous Epith Cells Moderate H (None-Few) per lpf Ur Transition Epith Cell Few (None-Few) per hpf Urine Bacteria Few (None-Few) per hpf Ur Culture Indicated? YES A (NO) A. baumannii (PCR) Not Detected Not Detected (Not Detect) Jazmine albicans (PCR) Not Detected Not Detected (Not Detect) C. glabrata (PCR) Not Detected Not Detected (Not Detect) C. krusei (PCR) Not Detected Not Detected (Not Detect) C. parapsilosis (PCR) Not Detected Not Detected (Not Detect) C. tropicalis (PCR) Not Detected Not Detected (Not Detect) Enterobacteriac sp PCR Not Detected Not Detected (Not Detect) E. cloacae complex PCR Not Detected Not Detected (Not Detect) Enterococcus sp PCR Not Detected Not Detected (Not Detect) E. coli (PCR) Not Detected Not Detected (Not Detect) H. influenzae (PCR) Not Detected Not Detected (Not Detect) Hep Bs Antigen (Nonreactive) Hep Bs Antibody mIU/mL Klebsiella oxytoca PCR Not Detected Not Detected (Not Detect) Klebsiella pneumoniae Not Detected Not Detected (Not Detect) List. monocytogenes PCR Not Detected Not Detected (Not Detect) N. meningitidis (PCR) Not Detected Not Detected (Not Detect) Proteus species (PCR) Not Detected Not Detected (Not Detect) Serratia marcescens PCR Not Detected Not Detected (Not Detect) Staphylococcus sp PCR DETECTED A DETECTED A (Not Detect) Staph aureus (PCR) DETECTED A DETECTED A (Not Detect) mecA-Methicil Res Gene DETECTED A DETECTED A (Not Detect) Streptococcus sp PCR Not Detected Not Detected (Not Detect) Group A Strep DNA Not Detected Not Detected (Not Detect) Group B Strep (PCR) Not Detected Not Detected (Not Detect) Strep pneumoniae (PCR) Not Detected Not Detected (Not Detect) P. aeruginosa (PCR) Not Detected Not Detected (Not Detect) Jaimee/B-Vanco Res Genes Not Detected N/A (Not Detect) KPC (blaKPC) Detect PCR Not Detected N/A (Not Detect) 12/24/17 Range/Units 06:36 Ur Specimen Adequacy Urine Color (Yellow) Urine Clarity (Clear) Urine pH (5.0-8.0) pH Units Ur Specific [place] (1.010-1.025) Urine Protein (Neg-Trace) mg/dL Urine Glucose (UA) (Normal) mg/dL Urine Ketones (Negative) mg/dL Urine Blood (Negative) Urine Nitrite (Negative) Urine Bilirubin (Negative) Urine Urobilinogen (Normal) mg/dL Ur Leukocyte Esterase (Negative) Urine Microscopic RBC (0-3) per hpf Urine Microscopic WBC (0-3) per hpf Ur Squamous Epith Cells (None-Few) per lpf Ur Transition Epith Cell (None-Few) per hpf Urine Bacteria (None-Few) per hpf Ur Culture Indicated? (NO) A. baumannii (PCR) (Not Detect) Jazmine albicans (PCR) (Not Detect) C. glabrata (PCR) (Not Detect) C. krusei (PCR) (Not Detect) C. parapsilosis (PCR) (Not Detect) C. tropicalis (PCR) (Not Detect) Enterobacteriac sp PCR (Not Detect) E. cloacae complex PCR (Not Detect) Enterococcus sp PCR (Not Detect) E. coli (PCR) (Not Detect) H. influenzae (PCR) (Not Detect) Hep Bs Antigen Nonreactive (Nonreactive) Hep Bs Antibody 39.72 mIU/mL Klebsiella oxytoca PCR (Not Detect) Klebsiella pneumoniae (Not Detect) List. monocytogenes PCR (Not Detect) N. meningitidis (PCR) (Not Detect) Proteus species (PCR) (Not Detect) Serratia marcescens PCR (Not Detect) Staphylococcus sp PCR (Not Detect) Staph aureus (PCR) (Not Detect) mecA-Methicil Res Gene (Not Detect) Streptococcus sp PCR (Not Detect) Group A Strep DNA (Not Detect) Group B Strep (PCR) (Not Detect) Strep pneumoniae (PCR) (Not Detect) P. aeruginosa (PCR) (Not Detect) Jaimee/B-Vanco Res Genes (Not Detect) KPC (blaKPC) Detect PCR (Not Detect) - Impressions Impressions Guidance Needle Placement Ultrasound 01/03/18 00:00 IMPRESSION: Successful ultrasound-guided bedside placement of a temporary hemodialysis catheter through the right neck. D/ / Talon Hagen MD / Talon Hagen MD Interpreting Provider: Talon Hagen MD Insertion Non-Tunneled Catheter 01/03/18 00:00 IMPRESSION: Successful ultrasound-guided bedside placement of a temporary hemodialysis catheter through the right neck. D/ / Talon Hagen MD / Talon Hagen MD Interpreting Provider: Talon Hagen MD Chest X-Ray 01/03/18 13:14 IMPRESSION: 1. Interval placement of a right internal jugular central venous catheter with the tip projecting over the cavoatrial junction. No pneumothorax. 2. Increasing moderate left pleural effusion with mild interstitial edema. 3. Patchy right basilar atelectasis. D/ / 01/03/2018 14:25:49 Merary Gill MD / Daniella Frank Interpreting Provider: Merary Gill MD Chest X-Ray 01/03/18 19:02 IMPRESSION: Cardiomegaly with mild edema. Small left-sided pleural effusion with focal consolidation in the left lung base, atelectasis versus pneumonia, similar in appearance. Minimal right basilar airspace disease, slightly increased compared to prior. D/ / Nessa Howe MD / Nessa Howe MD Interpreting Provider: Nessa Howe MD Exam - Constitutional Vitals: Temp Pulse Resp BP Pulse Ox 97.7 F 65 18 96/52 90 01/04/18 06:45 01/04/18 06:45 01/04/18 07:24 01/04/18 06:45 01/04/18 07:24 General appearance: cooperative, no acute distress, obese - Head Head exam: Present: atraumatic, normal inspection, normocephalic - Eye Eye exam: Present: EOMI, normal appearance, PERRL Pupils: Present: normal accommodation Additional comments: No endocarditis stigmata noted. - ENT ENT exam: Present: mucous membranes moist - Neck Neck exam: Present: normal inspection Additional comments: Temporary HD catheter noted to the right neck with transparent dressing C/D/I. - Respiratory Respiratory exam: Present: decreased breath sounds (Throughout). Absent: rales , respiratory distress, rhonchi, wheezes - Cardiovascular Cardiovascular exam: Present: RRR, +S1, +S2 - GI/Abdominal GI/Abdominal exam: Present: distended (obese), normal bowel sounds, soft. Absent: tenderness - Extremities Exam Extremities exam: Present: normal inspection. Absent: joint swelling, pedal edema, tenderness - Back Exam Back exam: Present: normal inspection. Absent: vertebral tenderness - Neurological Exam Neurological exam: Present: alert, no focal deficits, strengths equal and symetr throughout. Absent: oriented X3 (Oriented to person and place. ), facial droop, speech deficit - Psychiatric Psychiatric exam: Absent: normal affect (Flat affect) - Skin Skin exam: Present: dry, intact, normal color, warm - VTE Documentation of Mechanical Device: Intermittent pneumatic compression device Consult Discharge Plan - Plan Referrals: Rashawn Michaels MD [Primary Care Provider] - (Called the doctors office to make a follow up appontment and they are closed. Will reopen on Sunday) - Attending Attestation I examined this patient and my medical decision-making was reviewed with the Resident Physician. I agree with the documented findings, disposition and treatment plan as described except to the extent set forth below. Patient's son and daughter are both at bedside. They state that they want comfort measures only. They did not want any further workup. I recommended patient gets transferred to [facility] and there is a pathology family wants comfort measure because they think the prognosis is dismal. I discussed with them the meld score and the prognosis of the patient.
--- NOTE | 2018-01-04 10:34 | Internal Med Progress Note ---
Date of Encounter: 01/04/18 Time of Encounter: 10:18 - Assessment and plan (1) DVT prophylaxis Current Visit: Yes Status: Acute Assessment and plan: EPCDs due to low PLT (2) Hypertension Current Visit: Yes Status: Chronic Assessment and plan: Now hypotensive Propanolol held 01/03. See hypotension for details Qualifiers: Hypertension type: essential hypertension Qualified Code(s): I10 - Essential (primary) hypertension (3) Pancytopenia Current Visit: Yes Status: Chronic Assessment and plan: chronic, due to liver cirrhosis, oncology eval in the past and present, continue to monitor Transfuse to Hb <7 Transfuse for PLT <10,000, or bleeding Continue to monitor (4) Fracture, clavicle closed, shaft Current Visit: Yes Status: Acute Assessment and plan: Imaging showed comminuted fracture sternal end right clavicle Orthopedics with recommendations for medical management without any surgical intervention at this time. Qualifiers: Encounter type: initial encounter Fracture alignment: nondisplaced Laterality: right Qualified Code(s): S42.024A - Nondisplaced fracture of shaft of right clavicle, initial encounter for closed fracture (5) T12 compression fracture Current Visit: Yes Status: Acute Assessment and plan: CT of thoracic spine showed mild superior endplate compression fracture of T12 appears acute. Orthopedic spine specialists consulted with recommendations for medical management Physical therapy consulted for evaluation for nursing facility placement- for ECF upon discharge (6) Diabetes mellitus Current Visit: Yes Status: Chronic Assessment and plan: Continue insulin sliding scale. Accuchecks. 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 Blood pressure low , HD schedule and management per nephrology (8) Bacteremia Current Visit: Yes Status: Acute Assessment and plan: Persistent Due to MRSA Peripheral blood cultures drawn 12/26/17 are positive 2/2 sets for MRSA. Repeat peripheral blood cultures drawn 12/29/17 are positive 2/2 sets as well. Blood cultures drawn 12/31/17 from the patient's Perma-cath are positive for MRSA. Status post perma-cath removal 01/01/18. Complicated due to persistent bacteremia and seeding of the kidneys. TTE noted, no vegetations Repeat blood culture done 01/02 positive for MRSA Blood culture 01/03 with MRSA in one of two bottles Patient is on on vancomycin with therapeutic random level. Infectious disease is following, will follow recommendations. (9) UTI (urinary tract infection) Current Visit: Yes Status: Acute Assessment and plan: Patient urinary culture positive for MRSA Patient continues to have confusion secondary to UTI/bacteremia Continue IV vancomycin as above Qualifiers: Urinary tract infection type: acute cystitis Hematuria presence: without hematuria Qualified Code(s): N30.00 - Acute cystitis without hematuria (10) Acute encephalopathy Current Visit: Yes Status: Resolved Assessment and plan: Resolved,possibly due to severe sepsis (11) Hypersplenism Current Visit: Yes Status: Chronic Assessment and plan: chronic,stable, due to liver cirrhosis (12) Liver cirrhosis secondary to nonalcoholic steatohepatitis (HENRIQUEZ) Current Visit: Yes Status: Chronic Assessment and plan: chronic, continue to monitor Ensure at least 2 BM per day, continue lactulose (13) Severe sepsis Current Visit: Yes Status: Acute Assessment and plan: Secondary to MRSA CLABSI Afebrile since 12/27/17. Tachycardia has resolved. AMS and lactic acidosis resolved. Persistently bacteremic with MRSA CBC today with leukocytosis 11.5 Continue vancomycin, added levaquin for coverage for PNA Infectious disease following. (14) Goals of care, counseling/discussion Current Visit: Yes Status: Acute Assessment and plan: Patient with very poor insight, wants everything done including liver transplant if necessary. Palliative team consulted today as patient with multiple co-morbidities in near end-stage (15) Hypotension Current Visit: Yes Status: Acute Assessment and plan: MAP 60-63. Qualifiers: Hypotension type: unspecified hypotension type Qualified Code(s): I95.9 - Hypotension, unspecified (16) Pneumonia Current Visit: Yes Status: Acute Assessment and plan: continue vanco added levaquin for pseudomonas/gram positive coverage Qualifiers: Pneumonia type: due to unspecified organism Laterality: left Lung location: unspecified part of lung Qualified Code(s): J18.9 - Pneumonia, unspecified organism - Time Spent With Patient Total time spent is greater than 50% in coordination of care (as documented) at patient's floor/unit and/or counseling patient: - Subjective Interval history: Seen and evaluated at bedside 72 F with known Cirrhosis and ESRD on HD, Pancytpenia, being managed for Severe Sepsis due to UTI and MRSA bacteremia possibly due to CLABSI, encephalopathy due to sepsis, clavicular fracture Infectious disease has been consulted ,appreciate recommendations Blood cultures drawn today 01/02 is positive for MRSA She is on vancomycin, random vanco level 22 01/02, ECHO done 01/01/18 showed pericardial effusion, preserved EF,no WMA,no vegetations Patient required a temporary catheter placed 01/03 for hemodialysis. She also developed acute on chronic respiratory failure and was transferred to the stepdown unit for close monitoring. Repeat chest x-ray showed a new left consolidation significant for pneumonia She seen and examined at the bedside this morning, she is oriented to place and person only, and not tachypneic. Her blood pressure has been low, with mean arterial pressures in the 60s. - Constitutional Vitals: Temp Pulse Resp BP Pulse Ox 97.7 F 65 18 96/52 90 01/04/18 06:45 01/04/18 06:45 01/04/18 07:24 01/04/18 06:45 01/04/18 07:24 General appearance: Present: A&O X 2 (AAOX2, to place and person only), pleasant , no acute distress, obese, answers questions appropriately - Head Head exam: Present: atraumatic, normocephalic - Eye Eye exam: Present: PERRL, conjuntiva pink, sclera anicteric Pupils: Present: PERRL - Neck Neck exam general surgery: Present: supple, trachea midline. Absent: lymphadenopathy Additional comments: R IJ Shiley - Respiratory Respiratory exam: Present: rales (bibasilar rales). Absent: accessory muscle use, rhonchi, wheezes - Cardiovascular Cardiovascular exam: Present: RRR, +S1, +S2. Absent: diastolic murmur, gallop, rubs, systolic murmur - GI/Abdominal GI/Abdominal exam: Present: normal bowel sounds, soft, no peritoneal signs. Absent: distended, tenderness - Extremities Exam Extremities exam: Present: warm, radial pulses palpable and symmetrical. Absent : calf tenderness, cyanotic, pedal edema - Neurological Exam Neurological exam: Present: alert, CN II-XII intact, no focal deficits. Absent : oriented X3, pronater drift, facial droop, speech deficit - Skin Skin exam: Present: dry, intact Internal Medicine: Result - Labs CBC & Chem 7: 01/04/18 04:00 01/04/18 04:00 Labs: Short CBC 01/03/18 01/04/18 Range/Units 19:15 04:00 WBC 16.3 H 7.6 D (4.3-11.1) K/mcL Hgb 10.0 L 8.2 L D (11.5-15.4) g/dL Hct 30.3 L 24.2 L (35.3-44.9) % Plt Count 96 L 49 L (140-400) K/mcL Neutrophils # 13.3 H 6.3 (1.6-8.9) K/mcL BMP 01/03/18 01/04/18 19:15 04:00 Sodium 129 L 130 L Potassium 5.0 4.9 Chloride 93 L 95 L Carbon Dioxide 18 L 20 L BUN 100 H 105 H Creatinine 7.03 H 7.47 H Glucose 206 H 158 H Calcium 8.3 L 8.1 L Liver Function 01/03/18 Range/Units 19:15 Total Bilirubin 3.6 H (0.3-1.0) mg/dL AST 18 (13-39) Units/L ALT 12 (7-52) Units/L Alkaline Phosphatase 74 (34-104) Units/L Albumin 2.7 L (3.5-5.7) g/dL - ABG Interpretation ABG results: ABG ABG pH 7.36 pH Units (7.32-7.45) 01/03/18 19:25 ABG pCO2 33 mmHg (35-45) L 01/03/18 19:25 ABG pO2 90 mmHg (85-104) 01/03/18 19:25 ABG O2 Saturation 97 % (95-98) 01/03/18 19:25 PT/INR, D-dimer PT 17.6 Seconds (9.4-12.1) H 01/03/18 10:35 - Impressions Impressions Guidance Needle Placement Ultrasound 01/03/18 00:00 IMPRESSION: Successful ultrasound-guided bedside placement of a temporary hemodialysis catheter through the right neck. D/ / Talon Hagen MD / Talon Hagen MD Interpreting Provider: Talon Hagen MD Insertion Non-Tunneled Catheter 01/03/18 00:00 IMPRESSION: Successful ultrasound-guided bedside placement of a temporary hemodialysis catheter through the right neck. D/ / Talon Hagen MD / Talon Hagen MD Interpreting Provider: Talon Hagen MD Chest X-Ray 01/03/18 13:14 IMPRESSION: 1. Interval placement of a right internal jugular central venous catheter with the tip projecting over the cavoatrial junction. No pneumothorax. 2. Increasing moderate left pleural effusion with mild interstitial edema. 3. Patchy right basilar atelectasis. D/ / 01/03/2018 14:25:49 Merary Gill MD / Daniella Frank Interpreting Provider: Merary Gill MD Chest X-Ray 01/03/18 19:02 IMPRESSION: Cardiomegaly with mild edema. Small left-sided pleural effusion with focal consolidation in the left lung base, atelectasis versus pneumonia, similar in appearance. Minimal right basilar airspace disease, slightly increased compared to prior. D/ / Nessa Howe MD / Nessa Howe MD Interpreting Provider: Nessa Howe MD - VTE Documentation of Mechanical Device: Intermittent pneumatic compression device Consult Discharge Plan - Plan Referrals: Rashawn Michaels MD [Primary Care Provider] -
[2018-01-04] MEDS: Calcium Acetate 667 MG CAPSULE PO SCH (10:49)
[2018-01-04] MEDS: amLODIPine 5 MG TABLET PO SCH (10:49)
[2018-01-04] MEDS: Lactulose Oral Soln 20 GM/30 ML UDC PO SCH (10:49)
[2018-01-04] MEDS: Folic Acid 1 MG TABLET PO SCH (10:49)
[2018-01-04] MEDS: Cholecalciferol (D-3) 1,000 UNIT TABLET PO SCH (10:49)
[2018-01-04] MEDS ORDERED: Insulin LISPRO 300 UNITS/3 ML VIAL SQ SCH (12:00)
[2018-01-04] MEDS ORDERED: 0.9 % Sodium Chloride 1,000 ML ONE (12:29)
[2018-01-04] MEDS ORDERED: Isovue-370 500 ML INFUS..BTL IV ONE (12:50)
[2018-01-04] MEDS ORDERED: Levofloxacin 750 MG/150 ML 750 MG/150 ML BAG IVPB SCH (13:00)
[2018-01-04] MEDS ORDERED: Lactulose 200 GM, Sodium Chloride IRRigation 700 ML RC ONE (13:10)
--- NOTE | 2018-01-04 13:45 | Palliative - Consult Note ---
Date of Encounter: 01/04/18 Time of Encounter: 09:00 - Assessment and Plan (1) Acute exacerbation of chronic obstructive airways disease Current Visit: No Status: Acute Assessment and plan: Patient's oxygen saturation 90% on 4L NC. Continue oxygen therapy. (2) Liver cirrhosis secondary to nonalcoholic steatohepatitis (HENRIQUEZ) Current Visit: Yes Status: Chronic Assessment and plan: Patient chronic liver cirrhosis. Ammonia level 127 today; had been ordered Lactulose. Patient's goals of care changed to comfort care. (3) Goals of care, counseling/discussion Current Visit: No Status: Acute Assessment and plan: Called and spoke with Patients son Manuel Shaffer ([phone]). Son informed video games storywriter that he would arrange family meeting with his sister Nessa Thrasher ). Family meeting set for 1215 pm. Family meeting conducted with patients son and daughter, this video games storywriter, and Optimization Analyst Keon for discussion of goals of care. Family agreed that given patient s current clinical status and prognosis, patients family changed CODE STATUS to DNR CC with wishes to keep patient comfortable. Patients family wishes for Dialysis and antibiotics to be stopped. Plan to discharge patient with hospice Sunday, with the possibility of placement into ECF. Palliative care will continue to follow. Notified Dr. Carreno of patients familys desire to stop dialysis and keep patient comfortable. Attempted to notify Dr. Barger of change in goals of care and CODE STATUS. (4) Fracture, clavicle closed, shaft Current Visit: Yes Status: Acute Assessment and plan: Surgery and Spine have both evaluated patient and recommended patient to be medically managed for fractures. Qualifiers: Encounter type: initial encounter Fracture alignment: nondisplaced Laterality: right Qualified Code(s): S42.024A - Nondisplaced fracture of shaft of right clavicle, initial encounter for closed fracture (5) T12 compression fracture Current Visit: Yes Status: Acute Assessment and plan: Surgery and Spine have both evaluated patient and recommended patient to be medically managed for fractures. (6) ESRD (end stage renal disease) on dialysis Current Visit: Yes Status: Acute Assessment and plan: Patient chronic dialysis patient. Family has decided to discontinue Dialysis and keep patient comfortable. (7) Acute encephalopathy Current Visit: Yes Status: Resolved Assessment and plan: Patient remains disoriented to time, unable to confirm patient's mentation for understanding medical status and risks therein. Obtained permission from patient to have family meeting with her children and family meeting results noted in goals section. (8) Severe sepsis Current Visit: Yes Status: Acute Assessment and plan: Patient's WBC currently 7.6, decreased from yesterday. Patient has remained on IV Antibiotics; family requested to stop all IV antibiotics and keep patient comfortable. (9) Pain due to fracture Current Visit: Yes Status: Acute Assessment and plan: Patient reports pain 5/10 in back and arm. Changed Oxycodone to SL form for ease of taking. (10) Anxiety Current Visit: Yes Status: Acute Assessment and plan: Patient's family presents concern over possibility of increased anxiety in patient related to change on health goals status. Will order PRN Ativan SL PRN for comfort. Patient denies anxiety during initial assessment. (11) Pancytopenia Current Visit: Yes Status: Chronic Assessment and plan: Oncology consulted and made recommendations regarding care. Patient's hgb 8.2 (Decreased from yesterday), Hct 24.2 (Decreased), and Platelets 42 (decreased). Explained to patient's children risks of comfort care including lack of giving blood products; verbalized understanding. Desire to keep patient comfortable. Palliative-CN HPI - Data of Consult Patient: new to practice Consult date: 01/04/18 Requesting Physician: Wade Barger MD Primary Care Provider: Rashawn Michaels, - Consult Narrative Palliative Care/Comfort Measures: Palliative care Reason for consult: ESRD and Liver Disease; Goals of care/Code Status History of present illness: Ms. Shaffer is a 72 year old female Arrived [facility] status post witnessed fall, no loss of consciousness, on 12/22/2017. Past medical history end-stage renal disease, on dialysis; asthma; cirrhosis; diabetes; and hypertension. Initial CT of cervical spine no contrast shows no acute osseous abnormality of the cervical spine and acute fracture of the proximal right clavicle with surrounding induration/blood. Initial EKG shows sinus bradycardia. Initial CT of head shows no acute intracranial abnormality. Initial CT of the lumbar spine without contrast shows decreased bone mineral density, normal lumbar spine alignment with acute subdural L1 superior endplate acute fracture with approximately 2-4% loss of height, and redemonstration of multilevel degenerative changes resulting in canal and foraminal stenosis. Initial CT of thoracic spine without contrast shows mild superior endplate compression fracture of T12 appears acute, no retropulsed fragments, and the canal is preserved; left sided pleural effusion present. Initial chest x-ray shows mild vascular congestive changes with small bilateral pleural effusions, left side greater than right. X-ray of the acute right shoulder showing no acute bony or joint abnormality and mild before meals joint degenerative changes. Patient admitted under hospitalist services for fracture, clavicle closed, shaft; T12 compression fracture; lumbar vertebral fracture, traumatic; hypoxemia; diabetes mellitus; end-stage renal disease; pancytopenia; hypertension. Nephrology consult to manage end-stage renal disease recommend continuing home schedule for dialysis treatment. Patient also diagnosed new alcoholic steatohepatitis. Orthopedic consult completed with Recommendation no surgical intervention and utilize a sling with pain management as necessary, requested follow-up x-ray in 3 weeks time. Oncology consultation regarding pancytopenia, recommend platelet transfusion and avatrombopage. Repeat CT of head without contrast showed no acute intra-cranial abnormality and periventricular and support old white matter low attenuation compatible with chronic microvascular ischemic changes. Spinal Consult completed, recommend continue medical management of L1 Lumbar vertebral body fracture. Patient diagnosed with Sepsis, Bacteremia, and UTI. Brain MRI showing: No acute infarct , intracranial hemorrhage, or significant mass effect and Chronic small vessel ischemic white matter disease and cerebral volume loss. Interventional Radiology for Tunneled HD Catheter removal. Infectious disease for treatment of severe sepsis, Bacteremia, UTI, and Acute Encephalopathy. New HD Catheter placed, chest x-ray confirmed placement. Palliative consulted for multiple co- morbidities, ESRD and liver disease; goals of care and code status. Patient alert at oriented to person and place, disoriented to time. Patient reports pain 5/10; described as an ache with back pain. Patient was unable to evaluate what hindered or alleviated pain. Patient denies nausea/vomiting or anxiety during assessment. Patient able to follow commands. Spoke with patient regarding goals of care, consent given to speak with patients son regarding goals of care. Called and spoke with Patients son Mnauel Shaffer ([phone]). Son informed video games storywriter that he would arrange family meeting with his sister Nessa Thrasher ). Family meeting set for 1215 pm. CC: Wade Barger MD Past Med Surg Social Fam HX - Past Medical History Medical history: asthma, cirrhosis (HENRIQUEZ), diabetes, hypertension, other Psychiatric history: no psych history - Past Surgical History Surgical History: hysterectomy, orthopedic, other Additional surgical history: carpal tunnel surgery. - Social History Smoking Status: Never smoker Smokeless Tobacco Status: No Alcohol use: none Drug use: none - Family History Mother Living Status: Hx Family Cardiac Disorders: Yes Hx Family Neuromuscular Disorders: Yes (Stroke) Father Adopted: No Family Member Ethnicity: Non- Living Status: Cause of : SD Hx Family Cardiac Disorders: Yes Hx Family Respiratory Disorders: No Hx Family Cancer: Yes Hx Family GI Disorders: No Hx Family Endocrine Disorder: Yes Hx Family Neuromuscular Disorders: No Hx Family Neurologic Disorders: No Hx Family HEENT Disorders: No Hx Family Autoimmune Disorders: No Medications and Allergies Cholecalciferol (D-3) 5,000 unit PO BID 30 Days tablet 06/18/15 [Rx] Allopurinol [Zyloprim 100 MG] 200 mg PO DAILY 08/06/17 [History] Atorvastatin [Lipitor] 10 mg PO HS 08/06/17 [History] Citalopram Hydrobromide [Citalopram HBr] 40 mg PO DAILY 08/06/17 [History] Cyanocobalamin (B-12) [Vitamin B12] 1,000 mcg IM QMONTH 08/06/17 [History] Folic Acid 1 mg PO DAILY 08/06/17 [History] Insulin ASPART [Novolog] 12 unit SQ QPM 10/31/17 [History] Insulin ASPART [Novolog] 22 unit SQ QAM 10/31/17 [History] Propranolol [Inderal] 20 mg PO BID #10 tablet 11/21/17 [Rx] amLODIPine [Norvasc] 5 mg PO DAILY 5 Days #5 tablet 11/21/17 [Rx] Calcium Acetate [Phos-LO] 667 mg PO DAILY 12/23/17 [History] Fluticasone/Vilanterol [Breo Ellipta 100-25 Mcg INH] 1 puff IH DAILY 12/23/17 [ History] 3 Allergy/AdvReac Type Severity Reaction Status Date / Time No Known Drug Allergies Allergy See Verified 10/31/17 08:46 Comments - Constitutional Constitutional ROS PAL: frequent falls - Gastrointestinal Gastrointestinal: abdominal pain - Musculoskeletal Musculoskeletal ROS IM: back pain - Psychiatric Psychiatric general PM: difficulty concentrating Palliative Care-Exam - Constitutional Vitals: Temp Pulse Resp BP Pulse Ox 97.9 F 88 18 91/53 94 01/04/18 11:56 01/04/18 11:56 01/04/18 11:56 01/04/18 11:56 01/04/18 11:56 General appearance: Present: cooperative, no acute distress, obese - Head Head Exam: Present: atraumatic, normal inspection - Expanded Head Exam Head exam expanded IM: Absent: general tenderness - Eye Eye exam: Present: EOMI, normal appearance Pupils: Present: normal accommodation, PERRL - ENT ENT exam: Present: mucous membranes dry, normal external ear exam - Expanded ENT Exam Mouth Exam: Present: normal external inspection. Absent: drooling - Neck Neck exam: Present: full ROM, normal inspection. Absent: tenderness - Respiratory Respiratory exam: Present: CTAB. Absent: accessory muscle use, respiratory distress - Cardiovascular Cardiovascular exam: Present: +S1, +S2. Absent: bradycardia - Expanded Cardiovascular Exam Peripheral pulses: 1+: Posterior Tibialis (L), Posterior Tibialis (R), Dorsalis Pedis (L) PM, Dorsalis Pedis (R) PM, 2+: Radial (L), Radial (R) - GI/Abdominal Exam GI/Abdominal exam: Present: distended, hyperactive bowel sounds, soft. Absent: tenderness - Expanded GI/Abdominal Exam GI/Abdominal exam: Present: ascites - Rectal Rectal exam: Present: deferred - Catheter Type: Urethral (Alatorre) - Extremities Exam Extremities exam: Present: full ROM, normal inspection. Absent: calf tenderness , pedal edema - Neurological Exam Neurological exam: Present: alert, altered. Absent: oriented X3 (disoriented to time.) - Expanded Neurological Exam Patient oriented to: Present: person, place. Absent: time Coma Scale Eye Opening: To Voice Coma Scale Motor Response: Obeys Commands Coma Scale Verbal Response: Confused Coma Scale Total: 13 - Psychiatric Psychiatric exam: Present: flat affect - Skin Skin exam: Present: dry, intact. Absent: normal color (some jaundicing noted.) Internal Medicine - CN: Reslt - Labs CBC & Chem 7: 01/04/18 04:00 01/04/18 04:00 Labs: Short CBC 01/03/18 01/04/18 Range/Units 19:15 04:00 WBC 16.3 H 7.6 D (4.3-11.1) K/mcL Hgb 10.0 L 8.2 L D (11.5-15.4) g/dL Hct 30.3 L 24.2 L (35.3-44.9) % Plt Count 96 L 49 L (140-400) K/mcL Neutrophils # 13.3 H 6.3 (1.6-8.9) K/mcL BMP 01/03/18 01/04/18 19:15 04:00 Sodium 129 L 130 L Potassium 5.0 4.9 Chloride 93 L 95 L Carbon Dioxide 18 L 20 L BUN 100 H 105 H Creatinine 7.03 H 7.47 H Glucose 206 H 158 H Calcium 8.3 L 8.1 L Liver Function 01/03/18 Range/Units 19:15 Total Bilirubin 3.6 H (0.3-1.0) mg/dL AST 18 (13-39) Units/L ALT 12 (7-52) Units/L Alkaline Phosphatase 74 (34-104) Units/L Albumin 2.7 L (3.5-5.7) g/dL - ABG Interpretation ABG results: ABG ABG pH 7.36 pH Units (7.32-7.45) 01/03/18 19:25 ABG pCO2 33 mmHg (35-45) L 01/03/18 19:25 ABG pO2 90 mmHg (85-104) 01/03/18 19:25 ABG O2 Saturation 97 % (95-98) 01/03/18 19:25 PT/INR, D-dimer PT 17.6 Seconds (9.4-12.1) H 01/03/18 10:35 - Impressions Impressions Guidance Needle Placement Ultrasound 01/03/18 00:00 IMPRESSION: Successful ultrasound-guided bedside placement of a temporary hemodialysis catheter through the right neck. D/ / Talon Hagen MD / Talon Hagen MD Interpreting Provider: Talon Hagen MD Insertion Non-Tunneled Catheter 01/03/18 00:00 IMPRESSION: Successful ultrasound-guided bedside placement of a temporary hemodialysis catheter through the right neck. D/ / Talon Hagen MD / Talon Hagen MD Interpreting Provider: Talon Hagen MD Chest X-Ray 01/03/18 13:14 IMPRESSION: 1. Interval placement of a right internal jugular central venous catheter with the tip projecting over the cavoatrial junction. No pneumothorax. 2. Increasing moderate left pleural effusion with mild interstitial edema. 3. Patchy right basilar atelectasis. D/ / 01/03/2018 14:25:49 Merary Gill MD / Daniella Frank Interpreting Provider: Merary Gill MD Chest X-Ray 01/03/18 19:02 IMPRESSION: Cardiomegaly with mild edema. Small left-sided pleural effusion with focal consolidation in the left lung base, atelectasis versus pneumonia, similar in appearance. Minimal right basilar airspace disease, slightly increased compared to prior. D/ / Nessa Howe MD / Nessa Howe MD Interpreting Provider: Nessa Howe MD Consult Discharge Plan - Plan Referrals: Rashawn Michaels MD [Primary Care Provider] - (Called the doctors office to make a follow up appontment and they are closed. Will reopen on Sunday) Palliative Quality Palliative Quality: Screen for Code Status: Yes, Screen for Goals of Care: Yes, Screen for Pain: Yes, If Pain Regimen Started, Initiate Bowel Regimen: NA, Screen for Nausea/Vomitting: Yes Code Status: 01/04/18 13:08 DNR [Resuscitation Status: Active] [RES] Routine Comment: Resuscitation Status: DNR-Comfort Care
--- NOTE | 2018-01-04 14:08 | Nephrology Progress Note ---
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 Family wishes that antibiotics and HD be stopped. (2) Bacteremia Current Visit: Yes Status: Acute Per primary team. (3) Pancytopenia Current Visit: Yes Status: Chronic Hematology/oncology on board for recommendations. (4) UTI (urinary tract infection) Current Visit: Yes Status: Acute WBC 11.5 up from 7.2 yesterday. Does have Alatorre catheter in place. Qualifiers: Urinary tract infection type: acute cystitis Hematuria presence: without hematuria Qualified Code(s): N30.00 - Acute cystitis without hematuria Subjective Principal diagnosis: Chronic dialysis Interval history: Pt seen and examined, resting with eyes closed. Objective - Vital Signs Vital signs: Vital Signs Temp Pulse Resp BP Pulse Ox 01/04/18 11:56 97.9 F 88 18 91/53 94 01/04/18 07:24 18 90 01/04/18 06:45 97.7 F 65 18 96/52 98 01/04/18 05:30 68 93/60 01/04/18 04:30 62 82/44 01/04/18 03:32 98.1 F 63 19 81/54 99 01/04/18 03:30 64 81/54 01/04/18 02:30 65 95/56 01/04/18 01:30 67 96/54 01/04/18 00:30 61 76/38 01/03/18 23:30 66 87/51 01/03/18 23:18 97.8 F 65 20 96/57 100 01/03/18 22:30 64 90/55 01/03/18 21:32 20 96 01/03/18 21:30 96 01/03/18 21:15 63 24 78/43 99 01/03/18 21:00 96 01/03/18 20:53 97.6 F 85 20 86/63 98 01/03/18 20:18 97.9 F 106 111/73 70 01/03/18 20:00 85 22 84/52 100 01/03/18 19:33 97.9 F 88 24 94/66 100 01/03/18 19:15 23 99 01/03/18 16:18 98.0 F 85 13 89/60 92 Intake and Output 01/03/18 01/04/18 01/04/18 23:59 07:59 15:59 Intake Total 90 / 90 Output Total 100 / 100 25 / 25 Balance -10 / -10 -25 / -25 Intake: Oral 90 / 90 Output: Urine 0 / 0 Catheter 100 / 100 25 / Other: Meal Dinner NPO Percent of Meal Consumed 50% 0% Stool Size Large Stool Consistency loose soft Stool Characteristics Pasty Stool Color Brown # Bowel Movement Diapers 1 Weight 80.4 kg Blood Glucose* 184 167 144 Patient Weight 01/04/18 23:59 Weight 80.4 kg - General Appearance General appearance: Present: chronically ill, frail EENT: Present: ATNC Neck: Present: supple Respiratory: Present: clear Cardiology: Present: no edema Dialysis Vascular Access: Venous Catheter (DRSG C/D/I.) Gastrointestinal: Present: normoactive bowel sounds, no tenderness, no guarding Integumentary: Present: no rash, warm and dry Neurologic: Present: confused Psychiatric: Present: mood/affect appropriate - Lab 01/04/18 04:00 01/04/18 04:00 Most recent lab results ABG pH 7.36 pH Units (7.32-7.45) 01/03/18 19:25 ABG pCO2 33 mmHg (35-45) L 01/03/18 19:25 ABG pO2 90 mmHg (85-104) 01/03/18 19:25 ABG HCO3 18 mEq/L (21-27) L 01/03/18 19:25 ABG O2 Saturation 97 % (95-98) 01/03/18 19:25 Calcium 8.1 mg/dL (8.6-10.3) L 01/04/18 04:00 Phosphorus 7.3 mg/dL (2.7-4.5) H 12/23/17 06:11 Magnesium 2.1 mg/dL (1.6-2.6) 12/23/17 06:11 - VTE Documentation of Mechanical Device: Intermittent pneumatic compression device Consult Discharge Plan - Plan Referrals: Rashawn Michaels MD [Primary Care Provider] - (Called the doctors office to make a follow up appontment and they are closed. Will reopen on Sunday) <Aniya Robb - Last Filed: 01/05/18 10:46> Date of Encounter: 01/04/18 Objective - Vital Signs Vital signs: Vital Signs Temp Pulse Resp BP Pulse Ox 01/05/18 07:55 16 90 01/05/18 03:16 97.8 F 82 16 96/59 90 01/04/18 21:55 90 01/04/18 16:53 97.7 F 76 18 102/61 90 01/04/18 11:56 97.9 F 88 18 91/53 94 Intake and Output 01/04/18 01/05/18 01/05/18 23:59 07:59 15:59 Intake Total 0 / 0 Output Total 0 / 0 Balance 0 / 0 0 / 0 Intake: Oral 0 / 0 Output: Urine 0 / 0 Other: Meal Breakfast Percent of Meal Consumed 0% Weight 79.5 kg Blood Glucose* 158 Patient Weight 01/05/18 23:59 Weight 79.5 kg - Lab 01/04/18 04:00 01/04/18 04:00 Most recent lab results ABG pH 7.36 pH Units (7.32-7.45) 01/03/18 19:25 ABG pCO2 33 mmHg (35-45) L 01/03/18 19:25 ABG pO2 90 mmHg (85-104) 01/03/18 19:25 ABG HCO3 18 mEq/L (21-27) L 01/03/18 19:25 ABG O2 Saturation 97 % (95-98) 01/03/18 19:25 Calcium 8.1 mg/dL (8.6-10.3) L 01/04/18 04:00 Phosphorus 7.3 mg/dL (2.7-4.5) H 12/23/17 06:11 Magnesium 2.1 mg/dL (1.6-2.6) 12/23/17 06:11 - Attending Attestation I examined this patient and my medical decision-making was reviewed with the Resident Physician. I agree with the documented findings, disposition and treatment plan as described except to the extent set forth below. Pt seen and examined with case discussed with Dr Carrasco, palliative care who reports after family meeting that Pt is not DNRCC which seems appropriate. Ok to stop IVF and will cancel HD planned today. Will sign off, please reconsult prn
[2018-01-04] MEDS ORDERED: *HR* LORazepam Oral Conc 2 MG/ML SL PRN (15:09)
[2018-01-05] MEDS: OXYCODONE Oral CONC 10 MG/0.5 ML ORAL.SYG SL PRN (03:08)
[2018-01-05] MEDS: Budesonide/Formoterol 160/4.5 MDI IH SCH ×2 (07:53→20:08)
--- NOTE | 2018-01-05 11:19 | Internal Med Progress Note ---
Date of Encounter: 01/05/18 Time of Encounter: 11:21 - Assessment and plan (1) DVT prophylaxis Current Visit: Yes Status: Acute Assessment and plan: EPCDs due to low PLT (2) Hypertension Current Visit: Yes Status: Chronic Qualifiers: Hypertension type: essential hypertension Qualified Code(s): I10 - Essential (primary) hypertension (3) Pancytopenia Current Visit: Yes Status: Chronic (4) Fracture, clavicle closed, shaft Current Visit: Yes Status: Acute Qualifiers: Encounter type: initial encounter Fracture alignment: nondisplaced Laterality: right Qualified Code(s): S42.024A - Nondisplaced fracture of shaft of right clavicle, initial encounter for closed fracture (5) T12 compression fracture Current Visit: Yes Status: Acute (6) Diabetes mellitus Current Visit: Yes Status: Chronic Qualifiers: Diabetes mellitus type: type 2 Diabetes mellitus fci insulin use: without fci use Diabetes mellitus complication status: with kidney complications Diabetes mellitus complication detail: with other kidney complication Qualified Code(s): E11.29 - Type 2 diabetes mellitus with other diabetic kidney complication (7) ESRD (end stage renal disease) Current Visit: Yes Status: Chronic (8) Bacteremia Current Visit: Yes Status: Acute (9) UTI (urinary tract infection) Current Visit: Yes Status: Acute Qualifiers: Urinary tract infection type: acute cystitis Hematuria presence: without hematuria Qualified Code(s): N30.00 - Acute cystitis without hematuria (10) Acute encephalopathy Current Visit: Yes Status: Resolved (11) Hypersplenism Current Visit: Yes Status: Chronic (12) Liver cirrhosis secondary to nonalcoholic steatohepatitis (HENRIQUEZ) Current Visit: Yes Status: Chronic (13) Severe sepsis Current Visit: Yes Status: Acute (14) Goals of care, counseling/discussion Current Visit: Yes Status: Acute (15) Hypotension Current Visit: Yes Status: Acute Qualifiers: Hypotension type: unspecified hypotension type Qualified Code(s): I95.9 - Hypotension, unspecified (16) Pneumonia Current Visit: Yes Status: Acute Qualifiers: Pneumonia type: due to unspecified organism Laterality: left Lung location: unspecified part of lung Qualified Code(s): J18.9 - Pneumonia, unspecified organism - Time Spent With Patient Total time spent is greater than 50% in coordination of care (as documented) at patient's floor/unit and/or counseling patient: - Subjective Interval history: Seen and evaluated at bedside 72 F with known Cirrhosis and ESRD on HD, Pancytpenia, being managed for Severe Sepsis due to UTI and MRSA bacteremia possibly due to CLABSI, encephalopathy due to sepsis, clavicular fracture Infectious disease has been consulted ,appreciate recommendations Blood cultures drawn today 01/02 is positive for MRSA She is on vancomycin, random vanco level 22 01/02, ECHO done 01/01/18 showed pericardial effusion, preserved EF,no WMA,no vegetations Patient required a temporary catheter placed 01/03 for hemodialysis. She also developed acute on chronic respiratory failure and was transferred to the stepdown unit for close monitoring. Repeat chest x-ray showed a new left consolidation significant for pneumonia She has been having worsening mental status possibly due to ongoing bacteremia, hepatic encephalopathy, electrolyte abnormalities Family in consultation to palliative care have made patient comfort care with plan by family to stop hemodialysis, and antibiotic She is seen and evaluated at bedside this mrn, she is comfortable on O2 by nasal cannula Palliative is following with a plan to initiate hospice Sunday 01/07 Plan today is to *continue comfort care *Remove Shiley catheter *No more labs - Constitutional Vitals: Temp Pulse Resp BP Pulse Ox 97.8 F 82 16 96/59 90 01/05/18 03:16 01/05/18 03:16 01/05/18 07:55 01/05/18 03:16 01/05/18 07:55 General appearance: Present: A&O X 1 (oriented to self only), pleasant, no acute distress, obese, answers questions appropriately - Head Head exam: Present: atraumatic, normocephalic - Eye Eye exam: Present: PERRL, conjuntiva pink, sclera anicteric Pupils: Present: PERRL - Neck Neck exam general surgery: Present: supple, trachea midline. Absent: lymphadenopathy - Respiratory Respiratory exam: Present: CTAB (anterior auscultation only) - Cardiovascular Cardiovascular exam: Present: RRR, +S1, +S2. Absent: diastolic murmur, gallop, rubs, systolic murmur - GI/Abdominal GI/Abdominal exam: Present: normal bowel sounds, soft, no peritoneal signs. Absent: distended, tenderness - Extremities Exam Extremities exam: Present: warm, radial pulses palpable and symmetrical. Absent : calf tenderness, cyanotic, pedal edema - Neurological Exam Neurological exam: Present: alert, CN II-XII intact, oriented X3, no focal deficits. Absent: pronater drift, facial droop, speech deficit - Skin Skin exam: Present: dry, intact Internal Medicine: Result - Labs CBC & Chem 7: 01/04/18 04:00 01/04/18 04:00 - ABG Interpretation ABG results: ABG ABG pH 7.36 pH Units (7.32-7.45) 01/03/18 19:25 ABG pCO2 33 mmHg (35-45) L 01/03/18 19:25 ABG pO2 90 mmHg (85-104) 01/03/18 19:25 ABG O2 Saturation 97 % (95-98) 01/03/18 19:25 PT/INR, D-dimer PT 17.6 Seconds (9.4-12.1) H 01/03/18 10:35 - Impressions Impressions Chest X-Ray 01/03/18 13:14 IMPRESSION: 1. Interval placement of a right internal jugular central venous catheter with the tip projecting over the cavoatrial junction. No pneumothorax. 2. Increasing moderate left pleural effusion with mild interstitial edema. 3. Patchy right basilar atelectasis. D/ : / 01/03/2018 14:25:49 Merary Gill MD / Daniella Frank Interpreting Provider: Merary Gill MD - VTE Documentation of Mechanical Device: Intermittent pneumatic compression device Consult Discharge Plan - Plan Referrals: Rashawn Michaels MD [Primary Care Provider] - (Called the doctors office to make a follow up appontment and they are closed. Will reopen on Sunday)
[2018-01-06] MEDS: Budesonide/Formoterol 160/4.5 MDI IH SCH ×2 (07:49→20:01)
--- NOTE | 2018-01-06 13:32 | Internal Med Progress Note ---
Date of Encounter: 01/06/18 Time of Encounter: 13:32 - Assessment and plan (1) DVT prophylaxis Current Visit: Yes Status: Acute Assessment and plan: EPCDs due to low PLT (2) Hypertension Current Visit: Yes Status: Chronic Qualifiers: Hypertension type: essential hypertension Qualified Code(s): I10 - Essential (primary) hypertension (3) Pancytopenia Current Visit: Yes Status: Chronic (4) Fracture, clavicle closed, shaft Current Visit: Yes Status: Acute Qualifiers: Encounter type: initial encounter Fracture alignment: nondisplaced Laterality: right Qualified Code(s): S42.024A - Nondisplaced fracture of shaft of right clavicle, initial encounter for closed fracture (5) T12 compression fracture Current Visit: Yes Status: Acute (6) Diabetes mellitus Current Visit: Yes Status: Chronic Qualifiers: Diabetes mellitus type: type 2 Diabetes mellitus mcc insulin use: without mcc use Diabetes mellitus complication status: with kidney complications Diabetes mellitus complication detail: with other kidney complication Qualified Code(s): E11.29 - Type 2 diabetes mellitus with other diabetic kidney complication (7) ESRD (end stage renal disease) Current Visit: Yes Status: Chronic (8) Bacteremia Current Visit: Yes Status: Acute (9) UTI (urinary tract infection) Current Visit: Yes Status: Acute Qualifiers: Urinary tract infection type: acute cystitis Hematuria presence: without hematuria Qualified Code(s): N30.00 - Acute cystitis without hematuria (10) Acute encephalopathy Current Visit: Yes Status: Resolved (11) Hypersplenism Current Visit: Yes Status: Chronic (12) Liver cirrhosis secondary to nonalcoholic steatohepatitis (HENRIQUEZ) Current Visit: Yes Status: Chronic (13) Severe sepsis Current Visit: Yes Status: Acute (14) Goals of care, counseling/discussion Current Visit: Yes Status: Acute (15) Hypotension Current Visit: Yes Status: Acute Qualifiers: Hypotension type: unspecified hypotension type Qualified Code(s): I95.9 - Hypotension, unspecified (16) Pneumonia Current Visit: Yes Status: Acute Qualifiers: Pneumonia type: due to unspecified organism Laterality: left Lung location: unspecified part of lung Qualified Code(s): J18.9 - Pneumonia, unspecified organism - Time Spent With Patient Total time spent is greater than 50% in coordination of care (as documented) at patient's floor/unit and/or counseling patient: - Subjective Interval history: Seen and evaluated at bedside 72 F with known Cirrhosis and ESRD on HD, Pancytpenia, being managed for Severe Sepsis due to UTI and MRSA bacteremia possibly due to CLABSI, encephalopathy due to sepsis, clavicular fracture Infectious disease has been consulted ,appreciate recommendations Blood cultures drawn today 01/02 is positive for MRSA She is on vancomycin, random vanco level 22 01/02, ECHO done 01/01/18 showed pericardial effusion, preserved EF,no WMA,no vegetations Patient required a temporary catheter placed 01/03 for hemodialysis. She also developed acute on chronic respiratory failure and was transferred to the stepdown unit for close monitoring. Repeat chest x-ray showed a new left consolidation significant for pneumonia She has been having worsening mental status possibly due to ongoing bacteremia, hepatic encephalopathy, electrolyte abnormalities Family in consultation to palliative care have made patient comfort care with plan by family to stop hemodialysis, and antibiotic She is seen and evaluated at bedside this mrn, she is comfortable on O2 by nasal cannula Palliative is following with a plan to initiate hospice Sunday 01/07 Plan today is to *continue comfort care *Remove Shiley catheter *No more labs - Constitutional Vitals: Temp Pulse Resp BP Pulse Ox 97.4 F L 103 18 122/74 91 01/06/18 07:56 01/06/18 07:56 01/06/18 07:56 01/06/18 07:56 01/06/18 07:56 General appearance: Present: A&O X 1 (oriented to self only), pleasant, no acute distress, obese, answers questions appropriately - Head Head exam: Present: atraumatic, normocephalic - Eye Eye exam: Present: PERRL, conjuntiva pink, sclera anicteric Pupils: Present: PERRL - Neck Neck exam general surgery: Present: supple, trachea midline. Absent: lymphadenopathy - Respiratory Respiratory exam: Present: CTAB. Absent: accessory muscle use, rales, rhonchi, wheezes - Cardiovascular Cardiovascular exam: Present: RRR, +S1, +S2. Absent: diastolic murmur, gallop, rubs, systolic murmur - GI/Abdominal GI/Abdominal exam: Present: normal bowel sounds, soft, no peritoneal signs. Absent: distended, tenderness - Extremities Exam Extremities exam: Present: warm, radial pulses palpable and symmetrical. Absent : calf tenderness, cyanotic, pedal edema - Neurological Exam Neurological exam: Present: alert, CN II-XII intact, no focal deficits. Absent : oriented X3, pronater drift, facial droop, speech deficit - Skin Skin exam: Present: dry Internal Medicine: Result - Labs CBC & Chem 7: 01/04/18 04:00 01/04/18 04:00 - ABG Interpretation ABG results: ABG ABG pH 7.36 pH Units (7.32-7.45) 01/03/18 19:25 ABG pCO2 33 mmHg (35-45) L 01/03/18 19:25 ABG pO2 90 mmHg (85-104) 01/03/18 19:25 ABG O2 Saturation 97 % (95-98) 01/03/18 19:25 PT/INR, D-dimer PT 17.6 Seconds (9.4-12.1) H 01/03/18 10:35 - VTE Documentation of Mechanical Device: Intermittent pneumatic compression device Consult Discharge Plan - Plan Referrals: Rashawn Michaels MD [Primary Care Provider] - (Called the doctors office to make a follow up appontment and they are closed. Will reopen on Sunday)
[2018-01-07] MEDS ORDERED: 0.9 % Sodium Chloride 1,000 ML ONE (06:42)
[2018-01-07] MEDS: Insulin LISPRO 300 UNITS/3 ML VIAL SQ SCH (07:48)
[2018-01-07] MEDS: Calcium Acetate 667 MG CAPSULE PO SCH (07:49)
--- NOTE | 2018-01-07 09:30 | Palliative Progress Note ---
Date of Encounter: 01/07/18 Time of Encounter: 09:00 - Assessment and plan (1) Acute exacerbation of chronic obstructive airways disease Current Visit: No Status: Acute Assessment and plan: Patient having agonal breathing. Oxygen saturation 93% on 5L. Spoke with Aide HILL for assistance with medication control and oxygen therapy strictly for comfort. (2) Liver cirrhosis secondary to nonalcoholic steatohepatitis (HENRIQUEZ) Current Visit: Yes Status: Chronic (3) Goals of care, counseling/discussion Current Visit: No Status: Acute Assessment and plan: Spoke with patient's son regarding goals of care. Anticipate admission to [facility] today. Spoke with Gogo for intake, requested Gogo notify Manuel ( patient's son) of hospice nurse's time of arrival to arrange for signing of paperwork to enter hospice; agreed. Will notify Dr. Barger of need for discharge order for patient to be admitted to [facility] today. (4) Fracture, clavicle closed, shaft Current Visit: Yes Status: Acute Qualifiers: Encounter type: initial encounter Fracture alignment: nondisplaced Laterality: right Qualified Code(s): S42.024A - Nondisplaced fracture of shaft of right clavicle, initial encounter for closed fracture (5) T12 compression fracture Current Visit: Yes Status: Acute (6) ESRD (end stage renal disease) on dialysis Current Visit: Yes Status: Acute Assessment and plan: Patient's family has decided to stop dialysis and have comfort care. (7) Acute encephalopathy Current Visit: Yes Status: Resolved (8) Severe sepsis Current Visit: Yes Status: Acute (9) Pain due to fracture Current Visit: Yes Status: Acute Assessment and plan: Patient denies pain during assessment. 1 dose of Oxycodone administered in last 24 hours. (10) Anxiety Current Visit: Yes Status: Acute Assessment and plan: Patient suffering from increased anxiety. Patient has received 0 Doses of Ativan PRN, requested Aide HILL to bring patient PRN dose. Patient grabbing at the air and not following redirection. Increased agonal respirations also noted. (11) Pancytopenia Current Visit: Yes Status: Chronic (12) Delirium Current Visit: Yes Status: Acute Assessment and plan: Patient having terminal delirium. Frequent attempts to get out of bed without assistance and requiring bed alarm for safety. Patient disoriented to time, place, and person. Will order Haldol scheduled. - Time Spent With Patient Total time spent is greater than 50% in coordination of care (as documented) at patient's floor/unit and/or counseling patient: - Subjective Interval history: Patient alert and confusion present; disoriented to person, place or time. Staff present at bedside, attempting to assist patient with breakfast; patient unable to follow directions. Staff reported patient has been increasing confused and anxious, trying to get out of bed and bed alarm required to be set for safety. No family present during time of assessment. Patient denies pain, dyspnea, nausea, or vomiting during assessment; instructional writer is not convinced patient able to understand questions. Patient laying in bed, talking but unable to follow conversation, nor able to make sense of what patient is saying. Agonal type breathing noted during assessment; patient's oxygen saturation 93% on 5L NC. Spoke with nurse at patient's bedside, requested PRN Ativan be given. Patient has received Ativan x0 doses, Zofran X1 dose, Oxycodone X1 dose in the last 24 hours. - Constitutional Vitals: Abnormal lab results RBC 2.40 M/mcL (3.82-4.97) L 01/04/18 04:00 Hgb 8.2 g/dL (11.5-15.4) L D 01/04/18 04:00 Hct 24.2 % (35.3-44.9) L 01/04/18 04:00 MCV 100.8 fL (83.0-100.0) H 01/04/18 04:00 MCH 34.2 pg (28.0-33.3) H 01/04/18 04:00 RDW 18.4 % (11.5-14.5) H 01/04/18 04:00 Plt Count 49 K/mcL (140-400) L 01/04/18 04:00 Nucleated RBCs/100 WBC 0.4 /100 WBC (0) H 01/04/18 04:00 Platelet Estimate Decreased (Normal) L 01/04/18 04:00 Polychromasia 1+ (Not Present) A 01/04/18 04:00 Hypochromasia Present (Not Present) A 01/04/18 04:00 Anisocytosis 1+ (Not Present) A 01/04/18 04:00 Macrocytosis Present (Not Present) A 01/04/18 04:00 PT 17.6 Seconds (9.4-12.1) H 01/03/18 10:35 ABG pCO2 33 mmHg (35-45) L 01/03/18 19:25 ABG HCO3 18 mEq/L (21-27) L 01/03/18 19:25 ABG Total CO2 19 mEq/L (20-26) L 01/03/18 19:25 ABG Base Excess -6 mEq/L (-2 to 3) L 01/03/18 19:25 Sodium 130 mEq/L (136-145) L 01/04/18 04:00 Chloride 95 mEq/L (98-107) L 01/04/18 04:00 Carbon Dioxide 20 mEq/L (23-29) L 01/04/18 04:00 BUN 105 mg/dL (8-23) H 01/04/18 04:00 Creatinine 7.47 mg/dL (0.60-1.20) H 01/04/18 04:00 Est GFR ( Amer) 7 (> 60) L 01/04/18 04:00 Est GFR (Non-Af Amer) 5 (> 60) L 01/04/18 04:00 Glucose 158 mg/dL (70-105) H 01/04/18 04:00 POC Glucose 134 mg/dL (70-99) H 01/06/18 17:26 Calculated Osmolality 306 (280-300) H 01/04/18 04:00 Calcium 8.1 mg/dL (8.6-10.3) L 01/04/18 04:00 Phosphorus 7.3 mg/dL (2.7-4.5) H 12/23/17 06:11 Iron 32 mcg/dL (50-170) L 12/26/17 05:54 % Saturation 12 % (15-50) L 12/26/17 05:54 Transferrin 191 mg/dL (203-362) L 12/26/17 05:54 Ferritin 237 ng/ml (10-120) H 12/26/17 05:54 Total Bilirubin 3.6 mg/dL (0.3-1.0) H 01/03/18 19:15 Direct Bilirubin 1.6 mg/dL (0.0-0.2) H 01/02/18 06:00 Indirect Bilirubin 1.6 mg/dL (0.0-1.2) H 01/02/18 06:00 Ammonia 127 mcmol/L (16-53) H 01/03/18 19:15 B-Natriuretic Peptide 347 pg/mL (Less than 100) H 12/22/17 18:26 Albumin 2.7 g/dL (3.5-5.7) L 01/03/18 19:15 Globulin 4.2 g/dL (2.4-3.5) H 01/03/18 19:15 Albumin/Globulin Ratio 0.6 (1.1-2.2) L 01/03/18 19:15 Vitamin B12 1151 pg/mL (250-1100) H 12/26/17 05:54 Folate > 22.3 ng/mL (3.0-16.0) H 12/26/17 05:54 Ur Specimen Adequacy See below A 12/26/17 22:10 Urine Color Red (Yellow) A 12/26/17 22:10 Urine Clarity Cloudy (Clear) A 12/26/17 22:10 Urine Protein 100 mg/dL (Neg-Trace) H 12/26/17 22:10 Urine Blood Large (Negative) H 12/26/17 22:10 Urine Bilirubin Small (Negative) H 12/26/17 22:10 Ur Leukocyte Esterase Small (Negative) H 12/26/17 22:10 Urine Microscopic RBC TNTC per hpf (0-3) H 12/26/17 22:10 Urine Microscopic WBC 5-15 per hpf (0-3) H 12/26/17 22:10 Ur Squamous Epith Cells Moderate per lpf (None-Few) H 12/26/17 22:10 Ur Culture Indicated? YES (NO) A 12/26/17 22:10 Rheumatoid Factor 16 IU/mL (Less than 14) H 01/02/18 06:00 Staphylococcus sp PCR DETECTED (Not Detect) A 01/03/18 08:34 Staph aureus (PCR) DETECTED (Not Detect) A 01/03/18 08:34 mecA-Methicil Res Gene DETECTED (Not Detect) A 01/03/18 08:34 General appearance: Present: mild distress, obese. Absent: cooperative - Head Head exam: Present: atraumatic, normal inspection - Eye Eye exam: Present: normal appearance, PERRL, conjuntiva pink. Absent: periorbital swelling, periorbital tenderness - ENT ENT exam: Present: mucous membranes moist, normal external ear exam, normal oropharynx - Neck Neck exam: Present: full ROM, normal inspection - Respiratory Respiratory exam: Present: accessory muscle use (agonal breathing noted.), CTAB - Cardiovascular Cardiovascular exam: Present: irregular rhythm - GI/Abdominal GI/Abdominal exam: Present: distended, hypoactive bowel sounds. Absent: tenderness - Rectal Rectal exam: Present: deferred - Extremities Exam Extremities exam: Present: pedal edema. Absent: normal capillary refill, tenderness - Neurological Exam Neurological exam: Present: alert, altered. Absent: oriented X3, strengths equal and symetr throughout - Psychiatric Psychiatric exam: Present: agitated, anxious - Skin Skin exam: Present: dry. Absent: normal color Palliative Quality Palliative Quality: Screen for Code Status: Yes, Screen for Goals of Care: Yes, Screen for Pain: Yes, If Pain Regimen Started, Initiate Bowel Regimen: NA, Screen for Nausea/Vomitting: Yes Code Status: 01/04/18 13:08 DNR [Resuscitation Status: Active] [RES] Routine Comment: Resuscitation Status: DNR-Comfort Care - Labs CBC & Chem 7: 01/04/18 04:00 01/04/18 04:00 Labs: Laboratory Results - last 24 hr 01/06/18 17:26 POC Glucose 134 H - ABG Interpretation ABG results: ABG ABG pH 7.36 pH Units (7.32-7.45) 01/03/18 19:25 ABG pCO2 33 mmHg (35-45) L 01/03/18 19:25 ABG pO2 90 mmHg (85-104) 01/03/18 19:25 ABG O2 Saturation 97 % (95-98) 01/03/18 19:25 PT/INR, D-dimer PT 17.6 Seconds (9.4-12.1) H 01/03/18 10:35 Consult Discharge Plan - Plan Referrals: Rashawn Michaels MD [Primary Care Provider] - (Called the doctors office to make a follow up appontment and they are closed. Will reopen on Sunday)
[2018-01-07] MEDS: OXYCODONE Oral CONC 10 MG/0.5 ML ORAL.SYG SL PRN (10:04)
[2018-01-07] MEDS: Budesonide/Formoterol 160/4.5 MDI IH SCH (10:48)
--- NOTE | 2018-01-07 10:54 | Discharge Summary ---
Date of Encounter: 01/07/18 Time of Encounter: 10:52 - Discharge Diagnosis (1) DVT prophylaxis Priority: Primary Status: Acute (2) Hypertension Priority: Secondary Status: Chronic Qualifiers: Hypertension type: essential hypertension Qualified Code(s): I10 - Essential (primary) hypertension (3) Pancytopenia Priority: Secondary Status: Chronic (4) Fracture, clavicle closed, shaft Priority: Primary Status: Acute Qualifiers: Encounter type: initial encounter Fracture alignment: nondisplaced Laterality: right Qualified Code(s): S42.024A - Nondisplaced fracture of shaft of right clavicle, initial encounter for closed fracture (5) T12 compression fracture Priority: Primary Status: Acute (6) Diabetes mellitus Priority: Secondary Status: Chronic Qualifiers: Diabetes mellitus type: type 2 Diabetes mellitus mcfp insulin use: without mcfp use Diabetes mellitus complication status: with kidney complications Diabetes mellitus complication detail: with other kidney complication Qualified Code(s): E11.29 - Type 2 diabetes mellitus with other diabetic kidney complication (7) ESRD (end stage renal disease) Priority: Secondary Status: Chronic (8) Bacteremia Priority: Primary Status: Acute (9) UTI (urinary tract infection) Priority: Primary Status: Acute Qualifiers: Urinary tract infection type: acute cystitis Hematuria presence: without hematuria Qualified Code(s): N30.00 - Acute cystitis without hematuria (10) Acute encephalopathy Priority: Primary Status: Resolved (11) Hypersplenism Priority: Secondary Status: Chronic (12) Liver cirrhosis secondary to nonalcoholic steatohepatitis (HENRIQUEZ) Priority: Secondary Status: Chronic (13) Severe sepsis Priority: Primary Status: Acute (14) Goals of care, counseling/discussion Priority: Secondary Status: Acute (15) Hypotension Priority: Primary Status: Acute Qualifiers: Hypotension type: unspecified hypotension type Qualified Code(s): I95.9 - Hypotension, unspecified (16) Pneumonia Priority: Primary Status: Acute Qualifiers: Pneumonia type: due to unspecified organism Laterality: left Lung location: unspecified part of lung Qualified Code(s): J18.9 - Pneumonia, unspecified organism Hospital course: Seen and evaluated at bedside 72 F with known Cirrhosis and ESRD on HD, Pancytpenia, being managed for Severe Sepsis due to UTI and MRSA bacteremia possibly due to CLABSI, encephalopathy due to sepsis, clavicular fracture Infectious disease has been consulted ,appreciate recommendations Blood cultures drawn today 01/02 is positive for MRSA She is on vancomycin, random vanco level 22 01/02, ECHO done 01/01/18 showed pericardial effusion, preserved EF,no WMA,no vegetations Patient required a temporary catheter placed 01/03 for hemodialysis. She also developed acute on chronic respiratory failure and was transferred to the stepdown unit for close monitoring. Repeat chest x-ray showed a new left consolidation significant for pneumonia She has been having worsening mental status possibly due to ongoing bacteremia, hepatic encephalopathy, electrolyte abnormalities Family in consultation to palliative care have made patient comfort care with plan by family to stop hemodialysis, and antibiotic She is seen and evaluated at bedside this mrn, she is comfortable on O2 by nasal cannula Palliative is following Seen and examined today Stable to be transferred to in-patient hospice and transferred to Dr. Carrasco's services Discharge discussed with: patient, family, nurse, case management - Time Spent with Patient Total time spent providing and/or coordinating discharge services: Less than 30 minutes - Discharge Medications Home Medications: Cholecalciferol (D-3) 5,000 unit PO BID 30 Days tablet 06/18/15 [Rx] Allopurinol [Zyloprim 100 MG] 200 mg PO DAILY 08/06/17 [History] Atorvastatin [Lipitor] 10 mg PO HS 08/06/17 [History] Citalopram Hydrobromide [Citalopram HBr] 40 mg PO DAILY 08/06/17 [History] Cyanocobalamin (B-12) [Vitamin B12] 1,000 mcg IM QMONTH 08/06/17 [History] Folic Acid 1 mg PO DAILY 08/06/17 [History] Insulin ASPART [Novolog] 12 unit SQ QPM 10/31/17 [History] Insulin ASPART [Novolog] 22 unit SQ QAM 10/31/17 [History] Propranolol [Inderal] 20 mg PO BID #10 tablet 11/21/17 [Rx] amLODIPine [Norvasc] 5 mg PO DAILY 5 Days #5 tablet 11/21/17 [Rx] Calcium Acetate [Phos-LO] 667 mg PO DAILY 12/23/17 [History] Fluticasone/Vilanterol [Breo Ellipta 100-25 Mcg INH] 1 puff IH DAILY 12/23/17 [ History] Allergies/Adverse Reactions: 3 Allergy/AdvReac Type Severity Reaction Status Date / Time No Known Drug Allergies Allergy See Verified 10/31/17 08:46 Comments Date of admission: 12/22/17 19:52 Primary care physician: Rashawn Michaels, Consults: 12/22/17 20:21 Consult to Occupational Therapy [CONS] Routine Comment: Evaluate, develop and implement POC Reason for Consult: therapy/placement needs Does patient have active BEDREST order?: No Is patient medically & hemodynamically stable?: Yes Consult to Physical Therapy [CONS] Routine Comment: Evaluate, develop and implement POC Reason for Consult: PT eval Does patient have active BEDREST order?: No Is patient medically & hemodynamically stable?: Yes 12/22/17 20:35 Consult to Oncology Hematology [CONS] Routine Consulting Provider: Kamila De Jesus Reason for Consult: pancytopenia Time Notified: 20:00 Call Completed: Yes 12/22/17 23:09 Consult to Tube Machine Operator [CONS] Routine Reason for SW Consult: Patient wants home health 12/24/17 07:15 Consult to Dialysis [CONS] ONCE 12/26/17 07:15 Consult to Dialysis [CONS] ONCE 12/27/17 19:00 Consult to Dialysis [CONS] ONCE 12/28/17 06:00 Consult to Dialysis [CONS] ONCE 12/31/17 05:15 Consult to Dialysis [CONS] ONCE 12/31/17 16:46 Consult to Interventional Radiology [CONS] Routine Consulting Provider: Radiology Interventional Cols Reason for Consult: Removal of hemodialysis catheter secondary to bacteremia Call Completed: No 01/01/18 09:00 Consult to Infectious Diseases [CONS] Routine Consulting Provider: Infectious Disease Roscoe Reason for Consult: Persistent MRSA bacteremia Call Completed: No 01/03/18 09:42 Consult to Interventional Radiology [CONS] Routine Consulting Provider: Radiology Interventional Cols Reason for Consult: Please place non-tunneled HD line in the morning. Will make NPO tonight at midnight and INR has been ordered. Thanks! Time Notified: 09:43 Call Completed: Yes 01/04/18 08:37 Consult to Palliative Care [CONS] Routine Comment: Consulting Provider: Palliative Care Kiana Reason for Consult: Multiple co-morbidities, end stage renal and liver disease. Pls evaluate for goals of care and code status, thank you. Call Completed: No 01/04/18 09:30 Consult to Dialysis [CONS] ONCE Discharging clinician: Wade Barger Anticipated date of discharge: 01/07/18 - Constitutional Vitals: Temp Pulse Resp BP Pulse Ox 97.5 F L 96 19 120/72 93 01/07/18 08:15 01/07/18 08:15 01/07/18 08:15 01/07/18 08:15 01/07/18 08:15 General appearance: Present: A&O X 0, pleasant, no acute distress, obese, answers questions appropriately - Patient Status Disposition: Hospice - Medical Facility Condition: Critical Functional capacity at discharge: bed bound Overall status at discharge: patient is not back to baseline - Discharge Instructions Follow Up With: Rashawn Michaels MD [Primary Care Provider] - (Called the doctors office to make a follow up appontment and they are closed. Will reopen on Sunday) - Diet and Activity Diet: low salt diet - VTE Documentation of Mechanical Device: Intermittent pneumatic compression device
[2018-01-07 11:32] VITALS: BP 102/70
[2018-01-07] MEDS ORDERED: Haloperidol Lactate 5 MG/ML VIAL IVP SCH (12:00)
[2018-01-08] MEDS ORDERED: Darbepoetin 100 MCG/0.5 ML SYRINGE SQ SCH (09:00)
== END 2018-01-07 15:20 | disposition hospice, inpatient (51) | DRG 562 ==
LOC: EMEROO 16:27 → 2ANU 16:27 → SUATTDRO 19:52 → 2ANU 21:12 → 2NNU 01-03 20:25 → 2ANU 01-04 17:48
PROVIDERS: ADMIT Family Medicine; ATTEND Internal Medicine

== ENCOUNTER 2018-01-07 14:15 | Inpatient (IN) ==
[2018-01-07] MEDS ORDERED: Bisacodyl 10 MG RECTAL SUPPOSITORY RC PRN (14:33)
[2018-01-07] MEDS ORDERED: *HR* LORazepam Oral Conc 2 MG/ML SL PRN (14:33)
[2018-01-07] MEDS ORDERED: Atropine Sulfate 1% 40 DROP/2 ML BOTTLE SL PRN (14:33)
[2018-01-07] MEDS ORDERED: Acetaminophen 650 MG RECTAL SUPP RC PRN (14:33)
[2018-01-07] MEDS: Haloperidol Lactate 5 MG/ML VIAL IVP SCH ×2 (18:38→23:50)
[2018-01-07] MEDS: OXYCODONE Oral CONC 10 MG/0.5 ML ORAL.SYG SL PRN (20:03)
[2018-01-08] MEDS: Haloperidol Lactate 5 MG/ML VIAL IVP SCH ×3 (05:41→17:40)
--- NOTE | 2018-01-08 09:21 | Pallative History & Physical ---
<Jr Johns - Last Filed: 01/08/18 10:30> Date of Encounter: 01/08/18 Time of Encounter: 09:18 Assessment and Plan (1) Acute respiratory failure with hypoxia Current visit: Yes Status: Acute Dyspneic on exam, restless Oxycodone for pain/dys[van (2) Pneumonia Current visit: Yes Status: Suspected Comfort measures Tylenol for pain/fever Qualifiers: Pneumonia type: due to unspecified organism Laterality: bilateral Lung location: unspecified part of lung Qualified Code(s): J18.9 - Pneumonia, unspecified organism (3) ESRD (end stage renal disease) Current visit: Yes Status: Chronic HD has been withdrawn, no treatment (4) Goals of care, counseling/discussion Current visit: Yes Status: Acute Patient's code status has been changed to DNR-CC per family/MPOA. Currently on HIP hospice Palliative on board for comfort measures Internal Medicine - H&P: HPI Chief complaint: Sepsis Admitted From: Direct Admit Plans for Post Hospital Care: Hospice - Medical Facility History of present illness: Ms. Shaffer is a 72 year old female with history of cirrhosis, ESRD on hemodialysis, pancytopenia who presents to the hospital with severe sepsis due to UTI and MRSA bacteremia which may have been associated with CLABSI as well as encephalopathy. The patient was initially treated with IV antibiotics as well as hemodialysis, however over the course of her admission she developed a new left pneumonia. Throughout her stay, she did continue to have ongoing bacteremia with hepatic encephalopathy in electronic abnormalities which resulted in increasingly worse encephalopathy. Palliative care was initially consulted to discuss plans to stop hemodialysis and discontinue care in general. Following multiple family meetings, the family did determine that it would be appropriate to change the patient's CODE STATUS to DNR CC, and to discontinue all aggressive measures and see Comfort Care measures only. At this time the patient is still highly uncomfortable and dyspneic, so GIP is more appropriate. Past Med Surg Social Fam HX - Past Medical History Medical history: asthma, cirrhosis, diabetes, hypertension, other Psychiatric history: no psych history - Past Surgical History Surgical History: hysterectomy, orthopedic, other Additional surgical history: carpal tunnel surgery. - Social History Smoking Status: Unknown if ever smoked Smokeless Tobacco Status: No Alcohol use: none Drug use: none - Family History Mother Living Status: Hx Family Cardiac Disorders: Yes Hx Family Neuromuscular Disorders: Yes (Stroke) Father Adopted: No Family Member Ethnicity: Non- Living Status: Hx Family Cardiac Disorders: Yes Hx Family Respiratory Disorders: No Hx Family Cancer: Yes Hx Family GI Disorders: No Hx Family Endocrine Disorder: Yes Hx Family Neuromuscular Disorders: No Hx Family Neurologic Disorders: No Hx Family HEENT Disorders: No Hx Family Autoimmune Disorders: No Internal Medicine - H&P: Meds Cholecalciferol (D-3) 5,000 unit PO BID 30 Days tablet 06/18/15 [Rx] Allopurinol [Zyloprim 100 MG] 200 mg PO DAILY 08/06/17 [History] Atorvastatin [Lipitor] 10 mg PO HS 08/06/17 [History] Citalopram Hydrobromide [Citalopram HBr] 40 mg PO DAILY 08/06/17 [History] Cyanocobalamin (B-12) [Vitamin B12] 1,000 mcg IM QMONTH 08/06/17 [History] Folic Acid 1 mg PO DAILY 08/06/17 [History] Insulin ASPART [Novolog] 12 unit SQ QPM 10/31/17 [History] Insulin ASPART [Novolog] 22 unit SQ QAM 10/31/17 [History] Propranolol [Inderal] 20 mg PO BID #10 tablet 11/21/17 [Rx] amLODIPine [Norvasc] 5 mg PO DAILY 5 Days #5 tablet 11/21/17 [Rx] Calcium Acetate [Phos-LO] 667 mg PO DAILY 12/23/17 [History] Fluticasone/Vilanterol [Breo Ellipta 100-25 Mcg INH] 1 puff IH DAILY 12/23/17 [ History] 3 Allergy/AdvReac Type Severity Reaction Status Date / Time No Known Drug Allergies Allergy See Verified 10/31/17 08:46 Comments ROS unobtainable: due to mental status Palliative Care-Exam - Constitutional Vitals: Temp Pulse Resp BP Pulse Ox 97.5 F L 113 20 118/71 90 01/08/18 08:01 01/08/18 08:01 01/08/18 08:01 01/08/18 08:01 01/08/18 08:01 Exam: Gen: Vitals noted. Appears moderately distressed with agonal breathing exam and apparent akathisia HEENT: Normocephalic, atraumatic Neck: Supple. No adenopathy. Cardiac: RRR, no murmur, +S1/S2 Pulmonary: CTA bilaterally, no wheezes, rales or rhonchi, equal chest expansion Abdomen: soft, nontender, no guarding MSK: ROM intact, no joint swelling noted Extremities: no BLE edema, nontender calf, no cyanosis or clubbing Neuro: unresponsive to commands, does move all extremities Palliative Quality Palliative Quality: Screen for Code Status: Yes, Screen for Goals of Care: Yes, Screen for Pain: Yes, If Pain Regimen Started, Initiate Bowel Regimen: Yes, Screen for Nausea/Vomitting: Yes Code Status: 01/07/18 14:33 Resuscitation Status: Active [RES] Routine Comment: Resuscitation Status: DNR-Comfort Care <Marko Carrasco - Last Filed: 01/08/18 10:41> Date of Encounter: 01/08/18 Internal Medicine - H&P: HPI History of present illness: Ms. Shaffer is a 72 year old female Palliative Care-Exam - Constitutional Vitals: Temp Pulse Resp BP Pulse Ox 97.5 F L 113 20 118/71 90 01/08/18 08:01 01/08/18 08:01 01/08/18 08:01 01/08/18 08:01 01/08/18 08:01 Palliative Quality Code Status: 01/07/18 14:33 Resuscitation Status: Active [RES] Routine Comment: Resuscitation Status: DNR-Comfort Care - Attending Attestation I examined this patient and my medical decision-making was reviewed with the Resident Physician. I agree with the documented findings, disposition and treatment plan as described except to the extent set forth below.
--- NOTE | 2018-01-08 09:24 | Palliative - Consult Note ---
Date of Encounter: 01/08/18 Time of Encounter: 08:45 - Assessment and Plan (1) Delirium Current Visit: Yes Status: Acute Assessment and plan: Patient had a restless night. Attempting to get out bed. Received Haldol 1 dose this AM. Patient now resting. Opens eyes to name. (2) Anxiety Current Visit: Yes Status: Acute Assessment and plan: Lorazepam PRN. Patient received lorazepam this AM. Patient resting well. (3) Fracture, clavicle closed, shaft Current Visit: Yes Status: Acute Assessment and plan: Denies pain at present. Qualifiers: Encounter type: initial encounter Fracture alignment: nondisplaced Laterality: right Qualified Code(s): S42.024A - Nondisplaced fracture of shaft of right clavicle, initial encounter for closed fracture (4) T12 compression fracture Current Visit: Yes Status: Acute (5) Goals of care, counseling/discussion Current Visit: No Status: Acute Assessment and plan: Patient is inpatient GIP hospice patient. Comfort care. Palliative-CN HPI - Data of Consult Patient: known to practice within the last 3 years Consult date: 01/08/18 Requesting Physician: Marko Carrasco MD Primary Care Provider: Rashawn Michaels, - Consult Narrative Palliative Care/Comfort Measures: Palliative care Reason for consult: Symptom management History of present illness: Ms. Shaffer is a 72 year old female, transitioned to inpatient hospice care yesterday for terminal ESRD with termination of dialysis. Patient also has a history of cirrhosis, sepsis with CLABSI, anxiety, delerium. Patient also has a clavicle fracture and T12 compression fracture. The patient is a DNRCC - Comfort Care. This palliative care consult is for symptom management. CC: Marko Carrasco MD Past Med Surg Social Fam HX - Past Medical History Medical history: asthma, cirrhosis, diabetes, hypertension, other Psychiatric history: no psych history - Past Surgical History Surgical History: hysterectomy, orthopedic, other Additional surgical history: carpal tunnel surgery. - Social History Smoking Status: Unknown if ever smoked Smokeless Tobacco Status: No Alcohol use: none Drug use: none - Family History Mother Living Status: Hx Family Cardiac Disorders: Yes Hx Family Neuromuscular Disorders: Yes (Stroke) Father Adopted: No Family Member Ethnicity: Non- Living Status: Hx Family Cardiac Disorders: Yes Hx Family Respiratory Disorders: No Hx Family Cancer: Yes Hx Family GI Disorders: No Hx Family Endocrine Disorder: Yes Hx Family Neuromuscular Disorders: No Hx Family Neurologic Disorders: No Hx Family HEENT Disorders: No Hx Family Autoimmune Disorders: No Medications and Allergies Cholecalciferol (D-3) 5,000 unit PO BID 30 Days tablet 06/18/15 [Rx] Allopurinol [Zyloprim 100 MG] 200 mg PO DAILY 08/06/17 [History] Atorvastatin [Lipitor] 10 mg PO HS 08/06/17 [History] Citalopram Hydrobromide [Citalopram HBr] 40 mg PO DAILY 08/06/17 [History] Cyanocobalamin (B-12) [Vitamin B12] 1,000 mcg IM QMONTH 08/06/17 [History] Folic Acid 1 mg PO DAILY 08/06/17 [History] Insulin ASPART [Novolog] 12 unit SQ QPM 10/31/17 [History] Insulin ASPART [Novolog] 22 unit SQ QAM 10/31/17 [History] Propranolol [Inderal] 20 mg PO BID #10 tablet 11/21/17 [Rx] amLODIPine [Norvasc] 5 mg PO DAILY 5 Days #5 tablet 11/21/17 [Rx] Calcium Acetate [Phos-LO] 667 mg PO DAILY 12/23/17 [History] Fluticasone/Vilanterol [Breo Ellipta 100-25 Mcg INH] 1 puff IH DAILY 12/23/17 [ History] 3 Allergy/AdvReac Type Severity Reaction Status Date / Time No Known Drug Allergies Allergy See Verified 10/31/17 08:46 Comments ROS unobtainable: due to mental status (patient with terminal delerium ) - Constitutional Constitutional ROS PAL: decreased appetite, malaise - EENT Eyes: requires corrective lenses - Respiratory Respiratory: cough - Gastrointestinal Gastrointestinal: bloating, nausea - Musculoskeletal Musculoskeletal ROS IM: muscle weakness - Neurological Neurological ROS: weakness - Psychiatric Psychiatric general PM: anxiety Palliative Care-Exam - Constitutional Vitals: Temp Pulse Resp BP Pulse Ox 97.5 F L 113 20 118/71 90 01/08/18 08:01 01/08/18 08:01 01/08/18 08:01 01/08/18 08:01 01/08/18 08:01 General appearance: Present: cooperative, no acute distress - Head Head Exam: Present: atraumatic, normal inspection - Eye Eye exam: Present: PERRL Pupils: Present: PERRL - ENT ENT exam: Present: mucous membranes moist - Expanded ENT Exam Mouth Exam: Present: moist - Respiratory Respiratory exam: Present: CTAB - Expanded Respiratory Exam Location: decreased breath sounds: Left, Right, Lower - Cardiovascular Cardiovascular exam: Present: +S1, +S2 - Expanded Cardiovascular Exam Peripheral pulses: 1+: Femoral (L) PM, Femoral (R) PM, Posterior Tibialis (L), Posterior Tibialis (R), 2+: Carotid (L) PM, Carotid (R) PM, Radial (L), Radial ( R), Dorsalis Pedis (L) PM, Dorsalis Pedis (R) PM - GI/Abdominal Exam GI/Abdominal exam: Present: diminished bowel sounds - Extremities Exam Extremities exam: Present: tenderness - Neurological Exam Neurological exam: Present: altered Additional comments: Patient resting comfortable. Had doses of Haldol, Ativan and Oxycodone - Expanded Neurological Exam Coma Scale Eye Opening: To Voice Coma Scale Motor Response: Localizes to Pain Coma Scale Verbal Response: Inappropriate Coma Scale Total: 11 - Psychiatric Psychiatric exam: Present: flat affect Consult Discharge Plan - Plan Referrals: Rashawn Michaels MD [Primary Care Provider] - Palliative Quality Palliative Quality: Screen for Code Status: No, Screen for Goals of Care: No, Screen for Pain: Yes, If Pain Regimen Started, Initiate Bowel Regimen: Yes, Screen for Nausea/Vomitting: Yes Code Status: 01/07/18 14:33 Resuscitation Status: Active [RES] Routine Comment: Resuscitation Status: DNR-Comfort Care
[2018-01-08] MEDS ORDERED: Ondansetron 4 MG/2 ML VIAL ONE (09:41)
[2018-01-08] MEDS ORDERED: *HR* Propofol 200 MG/20 ML VIAL IVP ONE (09:41)
[2018-01-08] MEDS ORDERED: Dexamethasone 4 MG/ML VIAL ONE (09:41)
[2018-01-08] MEDS ORDERED: Lidocaine -MPF 2% 2 ML VIAL ONE (09:41)
[2018-01-09] MEDS: Haloperidol Lactate 5 MG/ML VIAL IVP SCH ×4 (01:05→17:15)
--- NOTE | 2018-01-09 07:11 | Event Note ---
Date of Encounter: 01/09/18 Time of Encounter: 07:09 Hospice medical coding specialist certification of terminal illness: Hospice benefit. Start: 01/07/2018 Hospice benefit. In: +90 days Palliative performance scale: 10-20% History: Patient with history of end-stage renal disease no longer receiving dialysis taking virtually no urine. Patient also has actually no intake. So with respiratory failure as the patient wishes no further aggressive treatment I believe that These findings support a life expectancy of 6 months or less. I attest that I have compose the above narrative based on my review of the patient's medical records, and or on my examination of the patient. Marko Carrasco M.D. Associate biomedical engineering technologist. [facility]
--- NOTE | 2018-01-09 07:39 | Event Note ---
Date of Encounter: 01/09/18 Time of Encounter: 07:05
--- NOTE | 2018-01-09 09:29 | Palliative Progress Note ---
<Jr Johns - Last Filed: 01/09/18 09:41> Date of Encounter: 01/09/18 Time of Encounter: 09:27 - Assessment and plan (1) Acute respiratory failure with hypoxia Current Visit: Yes Status: Acute Assessment and plan: Dyspneic on exam, restless Oxycodone for pain/dyspnea (2) Pneumonia Current Visit: Yes Status: Suspected Assessment and plan: Comfort measures Tylenol for pain/fever Qualifiers: Pneumonia type: due to unspecified organism Laterality: bilateral Lung location: unspecified part of lung Qualified Code(s): J18.9 - Pneumonia, unspecified organism (3) ESRD (end stage renal disease) Current Visit: Yes Status: Chronic Assessment and plan: HD has been withdrawn, no treatment (4) Goals of care, counseling/discussion Current Visit: Yes Status: Acute Assessment and plan: Patient's code status has been changed to DNR-CC per family/MPOA. Currently on HIP hospice She has remained encephalopathic overnight, and in some ways has worsened. On exam yesterday, she did not respond appropriately to commands, however she did show a reaction. On exam today, she initially did responded with "good morning" when I said good morning, but then rapidly became unresponsive to commands again showing only a grimace with sternal rub. I suspect that she's having momentary lucid intervals, however her overall picture represents a decline in functional mentation due to worsening encephalopathy. We will continue to manage symptoms. - Time Spent With Patient Total time spent is greater than 50% in coordination of care (as documented) at patient's floor/unit and/or counseling patient: - Subjective Interval history: The patient is resting in bed at the time of examination. She apparently remained encephalopathic over night, and was unresponsive. - Constitutional General appearance: Present: disheveled, no acute distress - Head Head exam: Present: atraumatic, normocephalic - Neck Neck exam: Present: normal inspection. Absent: lymphadenopathy - Respiratory Respiratory exam: Present: CTAB. Absent: accessory muscle use, respiratory distress - Cardiovascular Cardiovascular exam: Present: RRR - Extremities Exam Extremities exam: Present: normal inspection. Absent: pedal edema - Neurological Exam Neurological exam: Absent: alert Palliative Quality Palliative Quality: Screen for Code Status: Yes, Screen for Goals of Care: Yes, Screen for Pain: Yes, If Pain Regimen Started, Initiate Bowel Regimen: Yes, Screen for Nausea/Vomitting: Yes Code Status: 01/07/18 14:33 Resuscitation Status: Active [RES] Routine Comment: Resuscitation Status: DNR-Comfort Care Consult Discharge Plan - Plan Referrals: Rashawn Michaels MD [Primary Care Provider] - <AnselmomigdaliaMarko Chato - Last Filed: 01/09/18 10:32> Date of Encounter: 01/09/18 - Time Spent With Patient Total time spent is greater than 50% in coordination of care (as documented) at patient's floor/unit and/or counseling patient: - Attending Attestation I examined this patient and my medical decision-making was reviewed with the Resident Physician. I agree with the documented findings, disposition and treatment plan as described except to the extent set forth below. Palliative Quality Code Status: 01/07/18 14:33 Resuscitation Status: Active [RES] Routine Comment: Resuscitation Status: DNR-Comfort Care
[2018-01-09] MEDS: Ondansetron 4 MG/2 ML VIAL IVP PRN (11:11)
[2018-01-10] MEDS: Haloperidol Lactate 5 MG/ML VIAL IVP SCH ×5 (00:03→23:53)
--- NOTE | 2018-01-10 09:55 | Palliative Progress Note ---
<Margy Orlando - Last Filed: 01/10/18 10:31> Date of Encounter: 01/10/18 Time of Encounter: 09:52 - Assessment and plan (1) Acute respiratory failure with hypoxia Current Visit: Yes Status: Acute Assessment and plan: oxycodone available for pain/dyspnea (2) Pneumonia Current Visit: Yes Status: Suspected Assessment and plan: comfort measures tylenol for pain/fever Qualifiers: Pneumonia type: due to unspecified organism Laterality: bilateral Lung location: unspecified part of lung Qualified Code(s): J18.9 - Pneumonia, unspecified organism (3) ESRD (end stage renal disease) Current Visit: Yes Status: Chronic Assessment and plan: HD has been withdrawn no treatment (4) Goals of care, counseling/discussion Current Visit: Yes Status: Acute Assessment and plan: code status DNR-CC on HIP hospice - Time Spent With Patient Total time spent is greater than 50% in coordination of care (as documented) at patient's floor/unit and/or counseling patient: - Subjective Interval history: She remains encephalopathic. Her clinical picture continues to decline slowly as she was somewhat responsive yesterday and is unresponsive on exam this morning. Continue to manage symptoms. - Constitutional General appearance: Present: disheveled, no acute distress - Head Head exam: Present: atraumatic, normocephalic - Neck Neck exam: Present: normal inspection - Respiratory Respiratory exam: Present: CTAB. Absent: respiratory distress Additional comments: "belly breathing" - Cardiovascular Cardiovascular exam: Present: RRR - GI/Abdominal GI/Abdominal exam: Present: soft. Absent: distended - Extremities Exam Extremities exam: Absent: pedal edema Additional comments: posterior tibial pulses +2/4 bilateral - Neurological Exam Neurological exam: Absent: alert (unresponsive) Palliative Quality Palliative Quality: Screen for Code Status: Yes, Screen for Goals of Care: Yes, Screen for Pain: Yes, If Pain Regimen Started, Initiate Bowel Regimen: Yes, Screen for Nausea/Vomitting: Yes Code Status: 01/07/18 14:33 Resuscitation Status: Active [RES] Routine Comment: Resuscitation Status: DNR-Comfort Care Consult Discharge Plan - Plan Referrals: Rashawn Michaels MD [Primary Care Provider] - <Marko Carrasco - Last Filed: 01/10/18 11:32> Date of Encounter: 01/10/18 - Time Spent With Patient Total time spent is greater than 50% in coordination of care (as documented) at patient's floor/unit and/or counseling patient: - Attending Attestation I examined this patient and my medical decision-making was reviewed with the Resident Physician. I agree with the documented findings, disposition and treatment plan as described except to the extent set forth below. Palliative Quality Code Status: 01/07/18 14:33 Resuscitation Status: Active [RES] Routine Comment: Resuscitation Status: DNR-Comfort Care
[2018-01-11] MEDS: Haloperidol Lactate 5 MG/ML VIAL IVP SCH ×3 (05:57→14:30)
--- NOTE | 2018-01-11 09:08 | Palliative Progress Note ---
Date of Encounter: 01/11/18 Time of Encounter: 08:50 - Assessment and plan (1) Pain due to fracture Current Visit: No Status: Acute Assessment and plan: Has not required any PRN medications last 24 hours. Does not appear or seem uncomfortable. Monitor (2) Anxiety Current Visit: Yes Status: Acute Assessment and plan: Continue Lorazepam PRN - has not required. (3) Delirium Current Visit: Yes Status: Acute Assessment and plan: Continues with scheduled Haloperidol, however, this has been decreased. Will monitor response today, and titrate tomorrow if needed. (4) ESRD (end stage renal disease) Current Visit: Yes Status: Chronic (5) Severe sepsis Current Visit: No Status: Acute - Time Spent With Patient Total time spent is greater than 50% in coordination of care (as documented) at patient's floor/unit and/or counseling patient: 25 - 35 minutes - Subjective Interval history: Patient minimally responsive this am. Did grimace with light sternal rub. Hari-Banda respirations. Apical irreg and tachycardic. No family present. - Constitutional General appearance: Present: no acute distress - Respiratory Additional comments: Irregular respiration noted. Crackles Left chest noted. - Cardiovascular Cardiovascular exam: Present: irregular rhythm, tachycardia - GI/Abdominal GI/Abdominal exam: Present: normal bowel sounds, soft - Additional comments: Alatorre with scant amount dark allen urine with sediment. - Extremities Exam Additional comments: Edema noted to all extremities - Neurological Exam Additional comments: Minimally responsive at this time. - Skin Skin exam: Present: dry, pallor, warm Palliative Quality Palliative Quality: Screen for Code Status: Yes, Screen for Goals of Care: Yes, Screen for Pain: Yes, If Pain Regimen Started, Initiate Bowel Regimen: Yes, Screen for Nausea/Vomitting: Yes Code Status: 01/07/18 14:33 Resuscitation Status: Active [RES] Routine Comment: Resuscitation Status: DNR-Comfort Care Consult Discharge Plan - Plan Referrals: Rashawn Michaels MD [Primary Care Provider] -
[2018-01-11] MEDS: OXYCODONE Oral CONC 10 MG/0.5 ML ORAL.SYG SL PRN ×3 (10:43→21:04)
[2018-01-12] MEDS: Haloperidol Lactate 5 MG/ML VIAL IVP SCH ×2 (00:30→08:37)
[2018-01-12] MEDS: OXYCODONE Oral CONC 10 MG/0.5 ML ORAL.SYG SL PRN ×2 (01:54→08:44)
[2018-01-12 07:23] VITALS: BP 125/63
[2018-01-12] MEDS: Ondansetron 4 MG/2 ML VIAL IVP PRN (08:37)
--- NOTE | 2018-01-12 09:15 | Death Note ---
Discharge Sum: Summary - Date and Time Date of admission: 01/07/18 15:35 Date of : 01/12/18 Time of : 08:45 - Summary Details: Patient with end stage renal disease and multiple other comorbidities had prolonged hospital stay with severe sepsis. Decision was made by family to transition to hospice care and forego further dialysis. She was admitted to general inpatient hospice service earlier this week for intense symptom control. Yesterday, she had increased unresponsiveness and changes in breathing pattern. She peacefully at 0845 this am. - Additional Data Confirmation of as documented by pronouncing clinician: no pulse, no respirations, no heart sounds Family: at bedside Attending physician: Marko Carrasco MD Was code activated?: No Autopsy requested?: No employment appeals examiner notified?: No Organ bank notified?: Yes Hospice patient?: Yes Discharge Sum: Diag - PCOD Probable Cause of : Respiratory arrest Discharge Sum: Prov - Provider Primary care physician: Rashawn Michaels, Admitting clinician: Marko Carrasco Attending physician on admission: Marko Carrasco Consults: 01/07/18 14:33 Consult to Palliative Care [CONS] Routine Comment: Consulting Provider: Palliative Care Picher Reason for Consult: GIP management Call Completed: No
== END 2018-01-12 08:45 | disposition expired | DRG 871 ==
LOC: 2ANU 15:35
PROVIDERS: ADMIT Family Medicine Hospice and Palliative Medicine; ATTEND Family Medicine Hospice and Palliative Medicine